=== PATIENT | female | born 1950 | race Caucasian/White ===

== ENCOUNTER → 2018-01-21 12:46 | Outpatient (CLI) | payer MEDICARE, SELFPAY ==
--- NOTE | 2018-01-21 12:55 | BD_ITS ---
STUDY: DUAL ENERGY X-RAY ABSORPTIOMETRY / DXA REASON FOR EXAM: Female, 67 years old. The patient is postmenopausal. Loss of height. TECHNIQUE: Bone Mineral Density (BMD) measurements of lumbar spine and bilateral hips were obtained. COMPARISON: None. FINDINGS: Lumbar Spine (L1-L4): g/cm2 (1.059) / T-score (-1.2) / Z-score (0.4) Findings are suggestive of osteopenia with a moderate fracture risk. Prior vertebral plasty of the L1 vertebrae. Left Femur Total: g/cm2 (0.902) / T-score (-0.8) / Z-score (0.4) Left Femoral Neck: g/cm2 (0.880) / T-score (-1.1) / Z-score (0.4) Right Femur Total: g/cm2 (0.898) / T-score (-0.9) / Z-score (0.4) Right Femoral Neck: g/cm2 (0.810) / T-score (-1.6) / Z-score (-0.1) BD/Dexa Bone Density Study IMPRESSION: The patient is considered osteopenic as outlined below according to World Jesus Organization (WHO) criteria with a moderate fracture risk. Reference Information: The T-score is the number of standard deviations above or below the standard which is normal for young adults at their peak bone mineral density. The World Health Organization (WHO) interprets the T-scores as follows: Above -1 Normal bone density Between -1 and -2.5 Osteopenia Equal to / or below -2.5 Osteoporosis As a practical clinical guideline, osteopenia may be graded as follows: Mild -1 through -1.5 Moderate -1.6 through -2.0 Severe -2.1 through -2.4 The Z-score is the number of standard deviations above or below age-matched controls. A Z-score of less than -1.5 would be considered abnormal. References: 1. NIH Osteoporosis and Related Bone Diseases http://www.osteo.org 2. International Society for Clinical Densitometry http://www.iscd.org 3. National Osteoporosis Foundation http://www.nof.org Electronically Signed: Elias Finn MD at 15:36 EDT Tel [phone], Service support ,
== END ==
PROVIDERS: Family Provider Nurse Practitioner; PCP Nurse Practitioner; Visit Provider Nurse Practitioner
DX: Z78.0 Asymptomatic menopausal state (principal)
CPT/HCPCS: 77080

== ENCOUNTER → 2018-02-14 12:47 | Outpatient (CLI) | payer MEDICARE, SELFPAY ==
--- NOTE | 2018-02-14 12:50 | BI_ITS ---
MAMMOGRAPHY - BILATERAL SCREENING REASON FOR EXAM: Female, 67 years old. Routine annual screening examination. PERTINENT HISTORY: Non-contributory. History of prior bilateral breast reduction surgery. Remote bilateral excisional breast biopsies. TECHNIQUE: Digital bilateral breast margaux (3D mammographic acquisition) in the CC and MLO projections. 2-D mediolateral oblique (MLO) and craniocaudad (CC) views of both breasts were obtained. CAD: Full Field Digital Mammography with Computer Added Detection was performed. COMPARISON: Comparison is made with prior study dated May 18, 2016. FINDINGS: Breast Composition: There are scattered areas of fibroglandular density. There are no dominant masses or suspicious calcifications. No other significant abnormalities are identified. There has been no significant change since the prior study. BI/SCREENING MAMM (CAD), BILAT IMPRESSION: Stable bilateral screening mammogram. Yearly follow-up mammogram recommended. (A) ASSESSMENT CATEGORY: BIRADS Category 1: Negative. A letter regarding these results will be sent to the patient by the facility within 30 days. Approximately 10% of breast cancers are not detected by mammography. A normal mammogram should not delay biopsy of a clinically suspicious abnormality. [id number] Electronically Signed: Elias Finn MD at 8:30 EDT Tel [phone], Service support ,
== END ==
PROVIDERS: Family Provider Nurse Practitioner; PCP Nurse Practitioner; Visit Provider Nurse Practitioner
DX: Z12.31 Encounter for screening mammogram for malignant neoplasm of breast (principal)
CPT/HCPCS: 77063; 77067

== ENCOUNTER → 2018-02-24 08:35 | Outpatient (CLI) | payer MEDICARE, SELFPAY ==
[2018-02-24 09:36] LABS: AST(SGOT) 17 U/L (15-37); Alanine Aminotransfer ALT/SGPT 22 U/L (13-56); Albumin, Serum 3.8 g/dL (3.2-5.0); Alkaline Phosphatase 103 U/L (45-117); Anion Gap 11 (5-15); BUN 20 mg/dL (7-18); BUN/Creat Ratio 11.7 RATIO (10-20); Bilirubin, Direct 0.09 mg/dL (0.00-0.30); Calcium,Total 9.5 mg/dL (8.5-10.1); Chloride 97 mmol/L (98-107); Creatinine, Serum 1.71 mg/dL (0.55-1.02); EST Glomerular Filtration Rate 32 mL/min (>60); Est Glom Filt Rate - Afr Amer 38 mL/min (>60); Glucose 164 mg/dL (74-106); Potassium 4.1 mmol/L (3.5-5.1); Protein, Total 7.8 g/dL (6.4-8.2); Sodium Level 135 mmol/L (136-145)
== END ==
PROVIDERS: Internal Medicine Cardiovascular Disease; Family Provider Nurse Practitioner; PCP Nurse Practitioner; Visit Provider Internal Medicine Gastroenterology
DX: Z01.812 Encounter for preprocedural laboratory examination (principal); E78.5 Hyperlipidemia, unspecified
CPT/HCPCS: 36415; 80048; 80076

== ENCOUNTER → 2018-07-31 11:36 | Outpatient (CLI) | payer MEDICARE, SELFPAY ==
[2018-02-17 14:50] VITALS: BMI 33.5
--- NOTE | 2018-07-31 11:44 | RAD_ITS ---
HISTORY: HX OF SARCOIDOSIS EXAM: XR Chest 2 Views: COMPARISON: None FINDINGS: Stable findings. Normal heart size. Right middle lobe medial segment chronic scarring with secondary partial obscuration of the right heart border. No acute infiltrate. Right lower lobe calcified granuloma. No vascular congestion or pleural effusion. Atherosclerotic thoracic aorta. Previous T12 level kyphoplasty. RAD/Chest PA and Lateral IMPRESSION: 1. No acute disease or significant change. 2. Old granulomatous disease with right middle lobe chronic scarring. at [id number] Reported and signed by: Blane Shelley MD Electronically Signed: Blane Shelley, at 8:03 EST Tel , Service support ,
--- OUTSIDE RECORDS SUMMARY | 2018-09-25 14:22 | XMS RPT_ITS | Continuity of Care Document ---
:1950 Author Organization [facility] Address [address] [facility] [address] [place] [address] Phone Care Team Providers Name Role Phone Nav ARLENElsa Unavailable Malcolm STANLEY, Casey Florian Unavailable Linden DO , Dr. Aaron Diaz Unavailable John BatistaAnnalisa Unavailable Dr. Abimael Ag Unavailable Kirby STANLEY, Jared Galeano Unavailable Pascale [place] Unavailable Slarb BLANKER OPERATOR, Adelita Unavailable Unavailable Long BLANKER OPERATOR, Dora L Unavailable Unavailable Karly Chandra Unavailable Unavailable Trina Sorenson Unavailable Unavailable Unavailable Unavailable Problems Name Dates Details Abdominal pain in female (R10.9, 789.00) Comments: mod amt fecal stool , on US still with Rt lower quad pain Status: Active Anxiety (F41.9, 300.00) Comments: chronic anxiety weaned off of ativanhas been on this for 1-2 years sees [facility] Status: Active BMI 31.0-31.9,adult (Z68.31, V85.31) Status: Active BMI 31.0-31.9,adult (Z68.31, V85.31) Status: Active BMI 32.0-32.9,adult (Z68.32, V85.32) Status: Active BMI 33.0-33.9,adult (Z68.33, V85.33) Status: Active BMI 33.0-33.9,adult (Z68.33, V85.33) Status: Active BMI 33.0-33.9,adult (Z68.33, V85.33) Status: Active CAD (coronary artery disease) (I25.10, 414.00) Status: Active Chronic back pain (M54.9, 724.5) Comments: sees Dr. Jaswant Whittington [facility], per pt cant get oxycontin because of insurance [employer] Status: Active Chronic, continuous use of opioids (F11.90, 305.51) Comments: Seeing [facility], for pain med, oxycontin pt will ask for Butrans patch Status: Active CKD (chronic kidney disease), stage III (N18.3, 585.3) Comments: follows with Dr. Munguia in [place], seen for sarcoidosis currently, stableGFR 42 Status: Active Congestive heart failure (I50.9, 428.0) Comments: on amiodarone per cardio Status: Active Constipation (K59.00, 564.00) Status: Active COPD (chronic obstructive pulmonary disease) (J44.9, 496) Comments: moderate restriction given inhalers Status: Active Current nonsmoker (Z78.9, V49.89) Status: Active Deliveries (Parity) Comments: 1. 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 5 [id number] 8 buahs295-266 10 pyymf660-957 12 units>401 15 unitsad ding metformin not able to afford januvia, will take one bidwt gain and prednisone for a year Status: Active Diabetes mellitus type 2, uncontrolled (E11.65, 250.02) Status: Active Elevated alkaline phosphatase level (R74.8, 790.5) Status: Active Encounter for annual general medical examination with abnormal findings in adult (Z00.01, V70.0) Status: Active Encounter for screening for malignant neoplasm of colon (Renamed from Special screening for malignant neoplasms, colon) (Z12.11, V76.51) Status: Active Encounter for screening mammogram for breast cancer (Renamed from Encounter for screening mammogram for malignant neoplasm of breast) (Z12.31, V76.12) Status: Active Fatty liver (K76.0, 571.8) Status: Active Fibromyalgia (M79.7, 729.1) Status: Active GERD (gastroesophageal reflux disease) (K21.9, 530.81) Comments: has been on omeprazole for years at 41, will decrease dose and lifestyle changes Status: Active Hip pain (M25.559, 719.45) Status: Active History of MRSA infection (Z86.14, V12.04) Comments: with Sepsis July 2015 Cultured positive on 10-03-2015 for preop, treated with antibiotic and chlorhexidine and bacitracin.on 10-21-2015 CUlture NEGATIVE is continuing with weekly chlorhexidine until surgery date is known Status: Active Hypercholesteremia (E78.00, 272.0) Status: Active Hypertensive heart disease without heart failure (I11.9, 402.90) Comments: controlled on amlodipine, 20mg of furosemide and klon-conlow dose ASA Status: Active Hypothyroid (E03.9, 244.9) Status: Active Hypothyroid (E03.9, 244.9) Status: Active Hypoxia (R09.02, 799.02) Status: Active Insomnia (G47.00, 780.52) Comments: try melatonin 2 mg qhs, takes unisom, try tylenol pm or take pain med at night Status: Active L1 vertebral fracture (S32.019A, 805.4) Comments: s/p vertebroplasty done by Dr. 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) Status: Active Nausea (R11.0, 787.02) Status: Active Need for prophylactic vaccination and inoculation against influenza (Renamed from Need for immunization against influenza) (Z23, V04.81) Status: Active Need for prophylactic vaccination and inoculation against influenza (Renamed from Need for immunization against influenza) (Z23, V04.81) Status: Active Need for prophylactic vaccination and inoculation against influenza (Renamed from Need for immunization against influenza) (Z23, V04.81) Status: Active Nonsmoker (Z78.9, V49.89) Status: Active Pneumococcal vaccination given (Z23, V06.6) Comments: 0.5 ml pneumococcal vaccine given in L arm subcutaneously paitent tolerated wellLOT#[id number]#2020 NOV 06 Status: Active Postmenopausal (Renamed from Postmenopausal status) (Z78.0, V49.81) Status: Active Pregnancies () Comments: 1. 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 Whittington Status: Active Sweating abnormality (L74.9, 705.89) Comments: check thyroid labs Status: Active Sweating increase (R61, 780.8) Comments: ? citalopram, but has been on it for awile sweating after.. Thyroid is good Status: Active Uncontrolled diabetes mellitus (E11.65, 250.02) Comments: A1c by lab in March 08.3 takes 2 metformin bid, will see in Jun Status: Active Unspecified Diagnosis Status: Active Unspecified Diagnosis Status: Active Unspecified Diagnosis Status: Active Unspecified Diagnosis Status: Active Unspecified Diagnosis Status: Active Unspecified Diagnosis Status: Active Unspecified Diagnosis Status: Active Vaginal irlanda (B37.3, 112.1) Comments: will use monistat for 7 days no diflucan interferes with amio- take probiotics Status: Active Wrist pain (M25.539, 719.43) Status: Active Medications Name Dates Details ACCU-CHEK CANDY (In Vitro Strip) 1 (one) Strip tid for 30 days Quantity: 100 {Strip} Refills: 3 Ordered:09-Jan-2016 Fast DO, Madeline A Start : 09-Jan-2016 Active Allopurinol 100 MG Oral Tablet 1 (one) Tablet Tablet daily for 30 days Quantity: 30 {Tablet} Refills: 3 Ordered:11-May-2016 Adelita Doshi LPN Start : 08-May-2016 Active AmLODIPine Besylate 5 MG Oral Tablet 1 (one) Tablet bid for 30 days Quantity: 60 {Tablet} Refills: 3 Ordered:06-Jun-2018 Nav MCKINLEY, Elsa Reyes CNP, Elsa Luke Start : 06-Jun-2018 Active ASPIRIN LOW DOSE, 81MG (Oral Tablet Delayed Release) 1 (one) Tablet DR Tablet DR daily for 30 days Quantity: 30 {Tablet} Refills: 0 Ordered:25-Jul-2015 Madeline MOY Start : 18-Jul-2015 Active Atorvastatin Calcium 20 MG Oral Tablet 1 (one) Tablet Tablet daily for 0 days Quantity: 90 {Tablet} Refills: 3 Ordered:04-Sep-2017 Nav MCKINLEY, Elsa Reyes CNP, Elsa Luke Start : 04-Sep-2017 Active Calcitriol 0.25 MCG Oral Capsule 1 (one) Capsule daily for 0 days Quantity: 30 {Capsule} Refills: 6 Ordered:12-May-2018 Nav MCKINLEY, Elsa Reyes CNP, Elsa Luke Start : 12-May-2018 Active Citalopram Hydrobromide 40 MG Oral Tablet 1/2 tab tablet tablet daily for 30 days Quantity: 30 {Tablet} Refills: 3 Ordered:02-May-2018 Nav MCKINLYE, Elsa Reyes CNP, Elsa Luke Start : 02-May-2018 Active Cyclobenzaprine HCl 10 MG Oral Tablet 1 (one) Tablet as needed for 0 days Quantity: 30 {Tablet} Refills: 0 Ordered:11-Jun-2017 Nav MCKINLEY, Elsa Reyes CNP, Elsa Luke Start : 11-Jun-2017 Active Comments:Medication taken as needed. Pain management Furosemide 40 MG Oral Tablet 1/2 tab tablet daily for 30 days Quantity: 15 {Tablet} Refills: 0 Ordered:24-Jun-2018 Nav MCKINLEY, Elsa Reyes CNP, Elsa Luke Start : 24-Jun-2018 Active IRON, 325 (65 Fe)MG (Oral Tablet) 1 (one) Tablet Tablet daily for 30 days Quantity: 30 {Tablet} Refills: 0 Ordered:25-Jul-2015 Madeline Florez DO Start : 18-Jul-2015 Active Klor-Con 10 10 MEQ Oral Tablet Extended Release 1 (one) Tablet ER bid for 60 days Quantity: 60 {Tablet} Refills: 3 Ordered:14-Apr-2018 Remington Oviedo Start : 14-Apr-2018 Active LORazepam 0.5 MG Oral Tablet 1 (one) Tablet bid, prn only for 0 days Quantity: 60 {Tablet} Refills: 0 Ordered:07-Jul-2018 Tatianaabelardomickey MCKINLEY Elsa Leblancmickey MCKINLEY Elsa Luke Start : 07-Jul-2018 Active Comments:Oarrmackenzie rundx F41.9#60thirty days Melatonin 1 MG Oral Tablet 3 (three) Tablet qhs for 0 days Quantity: 60 {Tablet} Refills: 0 Ordered:12-Mar-2016 Nav MCKINLEY Elsa Leblancmickey MCKINLEY Elsa Luke Start : 12-Mar-2016 Active MetFORMIN HCl ER 500 MG Oral Tablet Extended Release 24 Hour 2 (two) Tablet bid for 30 days Quantity: 120 {Tablet} Refills: 6 Ordered:27-May-2018 Tatianaabelardomickey MCKINLEY Elsa Leblancmickey MCKINLEY Elsa Luke Start : 27-May-2018 Active Omeprazole 20 MG Oral Tablet Delayed Release 1 (one) Tablet DR Tablet DR daily for 90 days Quantity: 90 {QS} Refills: 3 Ordered:08-Jan-2018 Tatianaabelardomickey MCKINLEY Elsa Leblancmickey MCKINLEY Elsa Luke Start : 08-Jan-2018 Active Oxycodone-Acetaminophen 7.5-325 MG Oral Tablet 1 (one) Tablet Tablet bid as needed for 0 days Quantity: 60 {Tablet} Refills: 0 Ordered:03-Jul-2016 Tatianaabelardomickey MCKINLEY Elsa Leblancmickey MCKINLEY Elsa Luke Start : 03-Jul-2016 Active Comments:Medication taken as needed. Promethazine HCl 25 MG Oral Tablet 1 (one) Tablet q 8hrs as needed for 30 days Quantity: 30 {Tablet} Refills: 1 Ordered:27-May-2018 Tatianaabelardomickey MCKINLEY Elsa Leblancmickey MCKINLEY Elsa Luke Start : 27-May-2018 Active Comments:Medication taken as needed. Synthroid 50 MCG Oral Tablet 1 (one) Tablet daily except Sundays and Tuesdays for 0 days Quantity: 30 {Tablet} Refills: 3 Ordered:27-May-2018 Tatianaabelardomickey MCKINLEY Elsa Leblancmickey MCKINLEY Elsa Luke Start : 27-May-2018 Active Comments:generic only UNISOM, 25MG (Oral Tablet) 2 (two) Tablet Tablet q hs for 30 days Quantity: 60 {Tablet} Refills: 0 Ordered:25-Jul-2015 Madeline MOY Start : 18-Jul-2015 Active VITAMIN D3, 85240XUUD (Oral Capsule) 1 (one) Capsule Capsule once a month for 30 days Quantity: 1 {Capsule} Refills: 0 Ordered:25-Jul-2015 Madeline MOY Start : 18-Jul-2015 Active AMIODARONE HCL, 200MG (Oral Tablet) 1 (one) Tablet Tablet daily for 30 days Quantity: 30 {Tablet} Refills: 0 Ordered:20-Jan-2016 Tatianaabelardomickey MCKINLEY, Elsa Leblancmickey MCKINLEY Elsa Luke Start : 20-Jan-2016 End : 19-Feb-2016 Inactive Comments:per [facility] Augmentin 875-125 MG Oral Tablet 1 (one) Tablet bid for 14 days Quantity: 28 {Tablet} Refills: 0 Ordered:16-Oct-2016 Tatianaabelardomickey MCKINLEY, Elsa Leblancmickey MCKINLEY Elsa Luke Start : 16-Oct-2016 End : 30-Oct-2016 Inactive Bactrim DS 800-160 MG Oral Tablet 1 (one) Tablet bid for 10 days Quantity: 20 {QS} Refills: 0 Ordered:12-Mar-2016 Nav ARLEN, Elsa Reyes ENVIRONMENTAL SERVICE AIDE, Elsa Luke Start : 12-Mar-2016 End : 22-Mar-2016 Inactive FENOFIBRATE, 160MG (Oral Tablet) 1 (one) Tablet Tablet daily for 30 days Quantity: 30 {Tablet} Refills: 0 Ordered:19-Aug-2015 Madeline MOY Start : 18-Jul-2015 End : 17-Aug-2015 Inactive ISOSORBIDE MONONITRATE, 10MG (Oral Tablet) 1 (one) Tablet Tablet tid for 30 days Quantity: 90 {Tablet} Refills: 0 Ordered:25-Jul-2015 Altagracia Santiago Start : 18-Jul-2015 End : 17-Aug-2015 Inactive LIPITOR, 20MG (Oral Tablet) 1 (one) Tablet Tablet qd for 30 days Quantity: 30 {Tablet} Refills: 0 Ordered:24-Oct-2015 Madeline MOY Start : 22-Sep-2015 End : 22-Oct-2015 Inactive MetFORMIN HCl ER (OSM) 500 MG Oral Tablet Extended Release 24 Hour 1 (one) Tablet ER 24HR Tablet ER 24HR bid for 0 days Quantity: 60 {Tablet} Refills: 3 Ordered:22-Mar-2017 Dora Mckeon LPN Start : 20-Mar-2017 End : 22-Mar-2017 Inactive OXYCONTIN, 30MG (Oral Tablet ER 12 Hour Abuse-Deterrent) 1 (one) Tab 12HR Deter Tab 12HR Deter bid for 30 days Quantity: 60 {Tablet} Refills: 0 Ordered:19-Aug-2015 Madeline A Start : 18-Jul-2015 End : 17-Aug-2015 Inactive PEN NEEDLES /16, 31G X 5 MM (Miscellaneous) 1 (one) Misc q am for 30 days Quantity: 30 {Unspecified} Refills: 0 Ordered:28-Nov-2015 Adelita Doshi LPN Start : 28-Nov-2015 End : 28-Dec-2015 Inactive PIOGLITAZONE HCL, 15MG (Oral Tablet) 1 (one) Tablet Tablet daily for 30 days Quantity: 30 {Tablet} Refills: 0 Ordered:19-Aug-2015 Akhila Mickey Start : 18-Jul-2015 End : 17-Aug-2015 Inactive PREDNISONE, 20MG (Oral Tablet) 1/2 Tablet Tablet QOD for 30 days Quantity: 15 {Tablet} Refills: 0 Ordered:21-Oct-2015 Elsa Chopra CNP, CNP Onelia Start : 21-Oct-2015 End : 20-Nov-2015 Inactive Tradjenta 5 MG Oral Tablet 1 (one) Tablet daily for 0 days Quantity: 30 {Tablet} Refills: 3 Ordered:20-May-2018 Elsa Chopra CNP, CNP Onelia Start : 23-Apr-2018 End : 20-May-2018 Inactive Unisom Sleepgels 50 MG Oral Capsule 1 (one) Capsule Capsule qhs for 0 days Quantity: 30 {Capsule} Refills: 0 Ordered:10-Aug-2016 Dora Mckeon LPN Start : 07-Feb-2016 End : 10-Aug-2016 Inactive Xtampza ER 13.5 MG Oral Capsule ER 12 Hour Abuse-Deterrent 1 (one) Capsule q 12 hours for 30 days Quantity: 60 {Capsule} Refills: 0 Ordered:18-Jan-2018 Elsa Chopra CNP, CNP Elsa Luke Start : 18-Dec-2017 End : 17-Jan-2018 Inactive Comments:Dr Whittington , pain specialist BACTROBAN NASAL, 2% (Nasal Ointment) bid x 7days (2 %) End : 07-Nov-2015 Discontinued CHLORHEXIDINE GLUCONATE, 4% (External Liquid) 1 (one) Liquid Liquid daily x 5 dys then weekly x 4 weeks for 0 days Quantity: 1 {Bottle} Refills: 0 Ordered:07-Nov-2015 Adelita Doshi LPN Start : 03-Oct-2015 End : 07-Nov-2015 Discontinued Comments:leave on 2 minutes then ghoughtly wash off Januvia 100 MG Oral Tablet 1 (one) Tablet Tablet qd for 0 days Quantity: 30 {Tablet} Refills: 3 Ordered:12-Mar-2016 Adelita Doshi LPN Start : 02-Jan-2016 End : 12-Mar-2016 Discontinued Levemir 100 UNIT/ML Subcutaneous Solution 20 Solution units each morning for 30 days Quantity: 1 {Vial} Refills: 6 Ordered:11-May-2016 Adelita Doshi LPN Start : 03-Oct-2015 End : 11-May-2016 Discontinued Levemir FlexTouch 100 UNIT/ML Subcutaneous Solution Pen-injector 1 (one) Soln Pen-inj Soln Pen-inj 20 units q am for 30 days Quantity: 1 {Box} Refills: 3 Ordered:03-Jul-2016 Adelita Doshi LPN Start : 07-Feb-2016 End : 03-Jul-2016 Discontinued LEVEMIR, 100UNIT/ML (Subcutaneous Solution) 20 Solution units each morning for 30 days Quantity: 1 {Vial} Refills: 6 Ordered:07-Feb-2016 Elysemickey MCKINLEY, Elsa Reyes ARLEN, Elsa Luke Start : 03-Oct-2015 End : 07-Feb-2016 Discontinued LEVEMIR, 100UNIT/ML (Subcutaneous Solution) 20 Solution units each morning for 30 days Quantity: 1 {Vial} Refills: 6 Ordered:20-Jan-2016 Adelita Doshi LPN Start : 21-Oct-2015 End : 20-Jan-2016 Discontinued MACROBID, 100MG (Oral Capsule) q12hrs (100 MG) End : 05-Aug-2015 Discontinued Comments:[facility] MUPIROCIN, 2% (External Ointment) 1 (one) Ointment Ointment apply small amt to q tip qd x5 day for 0 days Quantity: 1 {Tube} Refills: 0 Ordered:07-Nov-2015 Adelita Doshi LPN Start : 03-Oct-2015 End : 07-Nov-2015 Discontinued Comments:apply to each nares, umbilicus, and rectum Norvasc 5 MG Oral Tablet 1 (one) Tablet Tablet bid for 30 days Quantity: 60 {Tablet} Refills: 11 Ordered:11-May-2016 Adelita Doshi LPN Start : 20-Jan-2016 End : 11-May-2016 Discontinued Comments:dose change on 01/06/16 cmanchak NovoLOG 100 UNIT/ML Subcutaneous Solution 1 (one) Solution uad, per sliding scale for 0 days Quantity: 30 {Vial} Refills: 6 Ordered:03-Jul-2016 Adelita Doshi LPN Start : 07-Feb-2016 End : 03-Jul-2016 Discontinued OMEPRAZOLE, 40MG (Oral Capsule Delayed Release) 1 (one) Capsule DR Capsule DR daily for 30 days Quantity: 30 {Capsule} Refills: 3 Ordered:07-Feb-2016 Adelita Doshi LPN Start : 12-Jan-2016 End : 07-Feb-2016 Discontinued OxyCODONE HCl ER 15 MG Oral Tablet ER 12 Hour Abuse-Deterrent 1 (one) Tab 12HR Deter Tab 12HR Deter bid for 0 days Quantity: 60 {QS} Refills: 0 Ordered:18-Dec-2017 Adelita Doshi LPN Start : 03-Jul-2016 End : 18-Dec-2017 Discontinued PredniSONE 10 MG Oral Tablet 1 (one) Tablet bid x 3 days, then 1 daily x 3 days,then 1/2 daily x 3 for 0 days Quantity: 12 {Tablet} Refills: 0 Ordered:19-Nov-2016 Adelita Doshi LPN Start : 16-Oct-2016 End : 19-Nov-2016 Discontinued Comments:with food PredniSONE 5 MG Oral Tablet 1 (one) Tablet Tablet qod for 0 days Quantity: 60 {Tablet} Refills: 11 Ordered:12-Mar-2016 Adelita Doshi LPN Start : 20-Jan-2016 End : 12-Mar-2016 Discontinued Comments:Per Urbina Tessalon Perles 100 MG Oral Capsule 1 (one) Capsule tid prn for 0 days Quantity: 30 {Capsule} Refills: 0 Ordered:19-Nov-2016 Adelita Doshi LPN Start : 16-Oct-2016 End : 19-Nov-2016 Discontinued Vancomycin HCl End : 05-Aug-2015 Discontinued Comments:1,250mg IV q24hrs x 64ugwv5,500mg IV q24hrs #14 Allergies and Adverse Reactions Name Dates Details Compazine *ANTIPSYCHOTICS/ANTIMANIC AGENTS* (Allergy) Status: Active Past Medical History Name Dates Details Abdominal pain (R10.9, 789.00) Comments: Started with RLQ pain about a week ago Status: Inactive as of 27-May-2018 Abnormal chest xray (R93.89, 793.2) Status: Inactive as of 26-Oct-2015 Abnormal TSH (R79.89, 790.6) Status: Inactive as of 27-May-2018 arthritis,unspecified (716.90) Status: Inactive as of 11-Jun-2017 BMI 32.0-32.9,adult (Z68.32, V85.32) Status: Inactive as of 11-Jun-2017 BMI 34.0-34.9,adult (Z68.34, V85.34) Status: Inactive as of 29-May-2017 BMI 35.0-35.9,adult (Z68.35, V85.35) Status: Inactive as of 18-Sep-2017 Boil, axilla (L02.439, 680.3) Comments: MRSA presented this way in past, will treat as if since had MRSA sepsis Status: Inactive as of 18-Dec-2017 Bone pain (M89.8X9, 733.90) Comments: ? from steroid wean,weaned from 60 to 5qod or Januvia Status: Inactive as of 27-May-2018 Chronic pain (G89.29, 338.29) Comments: on oxycodone and oxycontin per pain Dr. Whittington [facility] Status: Inactive as of 27-May-2018 CKD (chronic kidney disease) (N18.9, 585.9) Comments: was seeing Dr. Munguia's partner in [place] Dr. Morel, gfr 43%, has proteinuria Status: Inactive as of 27-May-2018 Cough (R05, 786.2) Status: Inactive as of 18-Dec-2017 Diabetes mellitus type II, controlled, with no complications (Renamed from Controlled type 2 diabetes mellitus without complication) (E11.9, 250.00) Comments: off insulin just metformin since off steroid Status: Inactive as of 27-May-2018 Hypoxia (R09.02, 799.02) Comments: concerned because post fall and post op- she sent to er tlaked to Dr Brewer- needs workup - including for pe- Status: Inactive as of 27-May-2018 Kidney Disease (585.9) Status: Inactive as of 11-Jun-2017 Low serum potassium level (E87.6, 276.8) Status: Inactive as of 27-May-2018 Migraine (G43.909, 346.90) Status: Inactive as of 27-May-2018 Muscle spasm (M62.838, 728.85) Comments: on potassium, gets muscle cramp Status: Inactive as of 27-May-2018 Rectal Bleeding (569.3) Comments: sounds possible fissure- montior and set up for scope when backissues stable- she to kiesha if abd pain or worse Status: Inactive as of 27-May-2018 Rt groin pain (R10.31, 789.09) Comments: vs hip using oxycodone and contin Status: Inactive as of 27-May-2018 Sepsis due to Staphylococcus (A41.2, 038.10) Comments: getting iv vanc - Being monitored by Dr Arenas and has followup next weekmrsa Status: Inactive as of 18-Dec-2017 Shoulder pain, right (M25.511, 719.41) Status: Inactive as of 27-May-2018 Skin texture changes (R23.4, 782.8) Status: Inactive as of 27-May-2018 Smoker (F17.200, 305.1) Status: Inactive as of 10-Dec-2016 Tachycardia (Renamed from Fast heart beat) (R00.0, 785.0) Comments: concerned with postop complication Status: Inactive as of 27-May-2018 Tenosynovitis of wrist (M65.9, 727.05) Comments: left wrist Status: Inactive as of 27-May-2018 Urinary casts (R82.99, 791.7) Comments: try to wean omeprazole on 1 daily go to every other day Status: Inactive as of 27-May-2018 UTI symptoms (R39.9, 788.99) Status: Inactive as of 11-Jun-2017 Wheeze (R06.2, 786.07) Status: Inactive as of 27-May-2018 Procedures Procedure Dates Details Back surgery [facility] Completed Comments: October 2015 Breast Reduction - Both Completed Gallbladder Surgery - Open Completed Hysterectomy; Total Completed Knee Replacement, Total Completed Comments: Right. vertebroplasty 06/16- l1 Completed Date Value Details 17-Feb-2018 Cardiology Visit Report Result: Comments: See Note; NOTES: [facility] [address] [place] [address] OFFICE VISIT Date of Service: 02/17/18 MR#: [id number] Acct: [id number] Name: SHREYAS KATHLEEN Rep #: [id number] : 1950 Provider: Casey Fowler MD Age/Sex: 67/F [place] [facility] [place] [facility] Status: Signed HPI HPI Details: SHREYAS KATHLEEN, is a 67 F who presents to the office today for for outpatien t cardiovascular follow-up of her history of underlying CAD, non-ST segment elevation HI, paroxysmal atrial fibrillation, superimposed upon a history of underlying hyperlipidemia and hypertension. Since her last visit of June 2017 she states overall she has been doing well. She denies any ongoing issues of classic angina pectoris nor has she had any overt issues of CHF or pulmonary edema. There has been no near syncope or syncope. She has not had her lipids checked since roughly June 2017. She states she has not required additional cardiovascular diagnostic studies or therapeutic intervention. Intake Vital Signs02/17/18 Height 5 ft 3 in 02/17/18 Weight: 189 lb 02/17/18 Body Mass Index (BMI) 33.5 02/17/18 Blood Pressure 108/58 Intake Visit Reasons: 6 M FU Allergies prochlorperazine katya late [From Compazine] Allergy (Verified 02/17/18 14:51) Other Medications Amlodipine [Norvasc] 5 mg PO DAILY 07/18/15 [History Confirmed 02/17/18] Aspirin [Aspirin, Baby] 81 mg PO DAILY@0800 07/18/15 [History Confirmed 02/17/18] Citalopram [Celexa] 20 mg PO DAILY 07/18/15 [History Confirmed 02/17/18] Furosemide [Lasix] 20 mg PO DAILY 07/18/15 [History Confirmed 02/17/18] proMETHazine tablet [Phener ferny tablet] 25 mg PO PRN PRN 07/18/15 [History Confirmed 02/17/18] atorvastatin 20 mg tablet 20 mg PO QDAY 02/16/18 [History Confirmed 02/17/18] doxylamine succinate 25 mg tablet 50 mg PO QHS PRN tab [History Confirmed 02/17/18] ferrous sulfate 325 mg (65 mg iron) tablet 325 mg PO QDAY tab 02/16/18 [History Confirmed 02/17/18] levothyroxine 50 mcg tablet 50 mcg PO QDAY 02/16/18 [History Confi rmed 02/17/18] metformin 500 mg tablet 500 mg PO BID 02/16/18 [History Confirmed 02/17/18] omeprazole 20 mg tablet,delayed release 20 mg PO QDAY 02/16/18 [History Confirmed 02/17/18] potassium chloride ER 10 mEq capsule,extended release 10 meq PO BID 02/16/18 [History Confirmed 02/17/18] calcitriol 0.25 mcg capsule 0.25 mcg PO QDAY 02/17/18 [History Confirmed 02/17/18] cholecalciferol (vitamin D3) 2,0 00 unit capsule 2,000 unit PO QDAY 02/17/18 [History Confirmed 02/17/18] cyclobenzaprine 10 mg tablet 10 mg PO BID PRN tab 02/17/18 [History Confirmed 02/17/18] lorazepam 1 mg tablet 1 mg PO QHS PRN [History Confirmed 02/17/18] oxycodone ER 13.5 mg capsule sprinkle ext release 12 hr(tamper resist) 13.5 mg PO Q12H 02/17/18 [History Confirmed 02/17/18] oxycodone-acetaminophen 7.5 mg-325 mg tabl et 1 tab PO Q4H PRN 02/17/18 [History Confirmed 02/17/18] PFSH Medical History Atherosclerotic heart disease of [place] coronary artery without angina pectoris (Chronic) History of myocardial infarction (Acute) Type 2 diabetes mellitus (Chronic) Hyperlipidemia (Chronic) Long-term use of high-risk medication (Chronic) HARI (obstructive sleep apnea) (Chr onic) HTN (hypertension) (Chronic) CKD (chronic kidney disease) stage 3, GFR 30- 59 ml/min (Chronic) PAF (paroxysmal atrial fibrillation) (Chronic) Diastolic dysfunction (Chronic) Obesity (BMI 30.0-34.9) (Chronic) Osteopenia (Acute) Pulmonary sarcoidosis (Acute) TIA (transient ischemic attack) (Acute) COPD (chronic obstructive pulmonary disease) (Chronic) Chronic respiratory failure with hypoxia (Chron ic) Hypothyroidism (Chronic) Pleural effusion (Chronic) Acute bronchitis (Inactive) CRF (chronic renal failure) (Inactive) Narcotic dependency, continuous (Inactive) Sepsis (Inactive) Surgical History History of back surgery (Resolved) History of cholecystectomy (Resolved) History of hysterectomy (Resolved) History of right knee joint replacement (Res olved) Family History Sister Diabetes Hypertension Sister Diabetes Hypertension Sister Diabetes Hypertension Social History Smoking Status: Never smok er alcohol intake: never ROS Const Const: Negative for fatigue, weakness, weight gain, weight loss, frequent falls or excessive sweating Eyes Eyes: Negative for change in vision, blurry vision or transient loss of vision ENT ENT: Negative for dizziness or balance problems Cardio Chest Pain: No Palpitations: No Edema: None Muscle aches with walking: None Resp Respiratory: Positive for SOB with ac tivity (occasional); negative for SOB at rest GI GI: Negative vomiting or vomiting blood/hematemesis : Negative for hematuria Musc Musc: Positive for joint pain (more frequently); negative for wenceslao nce problems, muscle aches/ myalgia or muscle weakness Skin Skin: Negative non- healing lesions or rash Neuro Neuro: Negative for weakness, blurry vision, dizziness, lightheadedness, frequent falls or or thostatic symptoms Jalen Hematologic/Lymphatic: Negative for easy bleeding Endo Endo: Negative for fatigue or excessive sweating Psych Psych: Negative for anxiety or depression Allergy Allergy/Immunology : Negative for hives, Negative for rash Cardiology Exam Const Appearance: cooperative, healthy appearing, comfortable, no acute distress, well developed and well groomed Nutritional Appearance: averag e body habitus Orientation: alert, oriented x3 and awake Head Head: normal to inspection, normocephalic and atraumatic Ears: hearing grossly normal bilaterally Nose: external nose normal Face and Sinus: face symmetric Mouth: oral mucosae normal Teeth and gingiva: fair dentition Eyes Eyelids: eyelids normal Conjunctivae: conjunctivae normal EOM: EOM intact bilaterally Neck Neck: normal visual inspectio n and full ROM Carotids: normal carotid upstroke Chest Chest inspection: normal inspection of the chest and symmetric chest movement Auscultation: Bilateral: Clear to Auscultation Cardio Palpation: norm al PMI Rate: regular rate Rhythm: regular rhythm Heart sounds: S1 normal and S2 normal GI GI: normal to inspection, bowel sounds present, soft and no hepatosplenomegaly Neuro General: alert, awake, orie nted x3 and moves all extremities Skin Skin: no rashes or lesions noted Extremities Pulses: Normal: Right Radial Pulse, Left Radial Pulse Lower Extremity Edema: Trace: Bilateral Psych Psychological: nor mal affect Supplemental Info She did have a transthoracic echocardiogram performed on 07/19/2015. At that time her left ventricle was thought to be normal with an LVEF of 65%, normal diastolic G for a ge, moderate left atrial enlargement, mild TR, and an estimated RV systolic pressure of 40 mmHg. She also had a diagnostic cardiac catheterization performed on 06/22/2014. The results are as noted rosanne lewis Final impression: 1, Relatively normal resting left ventricular end-diastolic pressure 2. Left ventricle: A. Not performed secondary to chronic renal insufficiency 3, Left main coronary artery: A. A ngiographically normal 4. Left anterior descending coronary artery: A. Proximal calcification with 10-25% stenosis B. Minimal luminal irregularities 5. Left circumflex coronary artery: A. Minimal Jumina l irregularities B. First OM with proximal 102 5% stenosis 6. Right coronary artery: A. Moderate sized dominant vessel B. Minimal luminal irregularities C. Proximal portion prior to and following the ta keoff of a small RV marginal branch demonstrates 25% diffuse appearing stenosis Assessment AND Plan 1. Atherosclerosis of [place] coronary artery of [place] heart without angina pectoris I25.10 Mild Plan At the present time she appears to be doing reasonably well overall. She will continue risk factor modification and medical management. Orders Orders: 2. Paroxysmal atrial fibrillation I48.0 Kelvin n She does have a history of paroxysmal atrial fibrillation. She has been on aspirin therapy and rate control therapy. She has not been on anticoagulant therapy based on previous concerns of anemia. 3. Hyperlipidemia, unspecified hyperlipidemia type E78.5 Plan Her lipid history is been reviewed. She will be scheduled for upcoming future fasting lipid and hepatic labs. Orders Orders: 4. Essential hyp ertension I10 Plan Her blood pressure appears to be reasonably well controlled. She will continue medical management and follow-up. 5. Long-term use of high- risk medication Z79.899 Plan As she is on me dical therapy with respect her lipid labs she will have a future fasting lipid and hepatic profile. Plan Detail Additional Comments Otherwise she will be scheduled for an outpatient visit in [facility] 9 months unless needed sooner. Thank you for allowing me to participate in the care of your patient. Please don't hesitate to call if any issues arise. This note was generated using a voice [email or web address] system and there may be incorrect words, spelling or punctuation that were not noted when reviewing the office note prior to saving. Follow Up 9 Months Coding Level of Care Code Off glen rodríguez,kelly l 4 Diagnoses Atherosclerosis of [place] coronary artery of [place] heart without angina pectoris I25.10 [place] vs. transplanted heart: [place] heart Paroxysmal atrial fibrillation I48.0 Hyperlipidemia, u nspecified hyperlipidemia type E78.5 Hyperlipidemia type: unspecified Essential hypertension I10 Hypertension type: essential hypertension Long-term use of high-risk medication Z79.899 Coding Level of Care Code Off glen rodríguez,level 4 Diagnoses Atherosclerosis of [place] coronary artery of [place] heart without angina pectoris I25.10 [place] vs. transplanted heart: [place] heart Paroxysmal atrial fibrillat ion I48.0 Hyperlipidemia, unspecified hyperlipidemia type E78.5 Hyperlipidemia type: unspecified Essential hypertension I10 Hypertension type: essential hypertension Long-term use of high-risk medicatio n Z79.899 02/17/18 1530 <Electronically signed by Casey Fowler MD> Date Casey Fowler MD Cosigner Signature: Date _ (if applicable) CC: Elsa Chopra NP 14-Feb-2018 SCREENING MAMM (CAD), BILAT Result: Comments: See Note; NOTES: [facility] Imaging Services [address] [place] [address] SCREENING MAMM (CAD), BILAT MR#: [id number] Acct: [id number] Name: SHREYAS KATHLEEN Rep #: [id number] : 1950 F 67 From: Elias Finn MD PCP: Elsa Chopra NP Status: REG CLI Study: SCREENING MAMM (CAD), BILAT Date of Exam: 02/14/18 Exam# [id number] Ordering Dr: Elsa Chopra MAMMO GRAPHY - BILATERAL SCREENING REASON FOR EXAM: Female, 67 years old. Routine annual screening examination. PERTINENT HISTORY: Non-contributory. History of prior bilateral breast reduction surgery. Stanislav te bilateral excisional breast biopsies. TECHNIQUE: Digital bilateral breast margaux (3D mammographic acquisition) in the CC and MLO projections. 2-D mediolateral oblique (MLO) and craniocaudad (CC) views of both breasts were obtained. CAD: Full Field Digital Mammography with Computer Added Detection was performed. COMPARISON: Comparison is made with prior study dated May 18, 2016. FINDINGS: Breast Composition: There are scattered areas of fibroglandular density. There are no dominant masses or suspicious calcifications. No other significant abnormalities are identified. There has been no significant change since the prior study. BI/SCREENING MAMM (CAD), BILAT IMPRESSION: Stable bilateral screening mammogram. Yearly follow-up mammogram recommended. (A) ASSESSMENT CATEGORY: BIRADS Category 1: Negative. [facility] these [facility] the facility within 30 days. Approximately 10% of breast cancers are not detected by mammography. A normal mammogram should not delay biopsy of a clinically suspicious abnormality. [id number] Elect ronically Signed: Elias Finn MD at 8:30 EDT Tel [phone], Service support , CC: Elsa Chopra NP Associate Professor Of English: Signed 21-Jan-2018 Dexa Bone Density Study Result: Comments: See Note; NOTES: [facility] Imaging Services [address] [place] [address] Dexa Bone Density Study MR#: [id number] Acct: [id number] Name: SHREYAS KATHLEEN Rep #: [id number] : 1950 F 67 From: Elias Finn MD PCP: Elsa Chopra NP Status: REG CLI Study: Dexa Bone Density Study Date of Exam: 01/21/18 Exam# [id number] Ordering Dr: Elsa Chopra STUDY: DUAL E NERGY X-RAY ABSORPTIOMETRY / DXA REASON FOR EXAM: Female, 67 years old. The patient is postmenopausal. Loss of height. TECHNIQUE: Bone Mineral Density (BMD) measurements of lumbar spine and bilateral hips were obtained. COMPARISON: None. FINDINGS: Lumbar Spine (L1-L4): g/cm2 (1.059) / T-score (-1.2) / Z-score (0.4) Findings are suggestive of osteopenia with a m oderate fracture risk. Prior vertebral plasty of the L1 vertebrae. Left Femur Total: g/cm2 (0.902) / T-score (-0.8) / Z-score (0.4) Left Femoral Neck: g/cm2 (0.880) / T-score (-1.1) / Z-score (0.4) Rig ht Femur Total: g/cm2 (0.898) / T-score (-0.9) / Z-score (0.4) Right Femoral Neck: g/cm2 (0.810) / T-score (-1.6) / Z-score (-0.1) BD/Dexa Bone Density Study IMPRESSION: The patient is considered osteopenic as outlined below according to World Jesus Organization (WHO) criteria with a moderate fracture risk. Reference Information: The T-score is the number of standard deviations above or below the standard which is normal for young adults at their peak bone mineral density. The World Health Organization (W HO) interprets the T-scores as follows: Above -1 Normal bone density Between -1 and -2.5 Osteopenia Equal to / or below -2.5 Osteoporosis As a practical clinical guideline, osteopenia may be graded as follows: Mild -1 through -1.5 Moderate -1.6 through -2.0 Severe -2.1 through -2.4 The Z-score is the number of standard deviations above or below age- matched controls. A Z-score of less than -1.5 woul d be considered abnormal. References: 1. NIH Osteoporosis and Related Bone Diseases http://www.osteo.org 2. International Society for Clinical Densitometry http://www.iscd.org 3. National Osteoporosis Foundation http://www.nof.org Electronically Signed: Elias Finn MD at 15:36 EDT Tel [phone], Service support , CC: Elsa Chopra NP Associate Professor Of English: Signed 10-Dec-2016 Hip 2-3 Views with Pelvis Result: Comments: See Note; NOTES: [facility] Imaging Services [address] [place] [address] Verdana 4d Hip 2-3 Views with Pelvis MR#: [id number] Acct: [id number] Name: SHREYAS KATHLEEN Keira Rep #: [id number] : 1950 F 66 From: Herve Jimenez MD PCP: Elsa Chopra Status: REG CLI Study: Hip 2-3 Views with Pelvis Date of Exam: 12/10/16 Exam# [id number] Ordering Dr: Elsa Chopra STUDY : X-RAY - PELVIS AND RIGHT HIP REASON FOR EXAM: Female, 66 years old. Right hip/groin pain, patients states she has a previous back injury from falling down stairs, possible related to her hip pain TE CHNIQUE: Radiological exam, hip, unilateral, with pelvis when performed; 2 or 3 views. COMPARISON: None. FINDINGS: There is a non-specific bowel gas pattern. Normal visualized soft tissue structures. Normal bilateral iliac wings, sacroiliac joints and visualized sacrum. Normal bilateral superior and inferior pubic rami. Normal pubic symphysis. Normal bilateral is chial tuberosities. Normal visualized femoral head. Normal acetabulum. Normal hip joint. RAD/Hip 2-3 Views with Pelvis IMPRESSION: Normal x-ray examination of the pelvis and hip. Electronically Signed: Herve Jimenez MD, FACR at 11:31 EDT , Service support [phone], CC: Elsa Chopra Associate Professor Of English: Signed 05-Jul-2016 Abdomen Complete Result: Comments: See Note; NOTES: [facility] Imaging Services [address] [place] [address] Verdana 4d Abdomen Complete MR#: [id number] Acct: [id number] Name: SHREYAS KATHLEEN Keira Rep #: [id number] : 1950 F 66 From: Elias Finn MD PCP: Elsa Chopra Status: REG CLI Study: Abdomen Complete Date of Exam: 07/05/16 Exam# [id number] Ordering Dr: Elsa Chopra STUDY: ABDOMINAL ULTRASOUND REASON FOR EXAM: Female, 66 years old. Abdominal pain. TECHNIQUE: Transabdominal ultrasound was performed with real-time and static martínez scale imaging. TECHNICAL QUALITY: Adequate. COMPAR EDITH: None. FINDINGS: Liver: The liver measures 16.4 cm. There is increased echogenicity consistent with fatty infiltration. The bile ducts are within normal limits . There is hepatic color flow. The direction of portal flow is hepatopetal. There is no demonstrated mass lesion. Gallbladder: The patient is status post cholecystectomy. Common Bile Duct (C.B.D.): Th e common bile duct measures 8.6 mm. Pancreas: There is nonvisualization of the pancreas. Spleen: Normal size of the spleen. The spleen measures 10.3 cm x 5.0 cm x 4.2 cm. Right Kidney: Normal size of the right kidney. The right kidney measures 10.4 cm x 4.5 cm x 4.1 cm. Normal renal cortex. The right cortex measures 1.2 cm. There is no demonstrated renal mass or cyst. There is no right hydronephros is. Left Kidney: Normal size of the left kidney. The left kidney measures 9.9 cm x 3.7 cm x 4.4 cm. Normal renal cortex. The left cortex measures 1.3 cm. There is no demonstrated renal mass or cyst. Th ere is no left hydronephrosis. Aorta: Unremarkable. I.V.C.: The IVC is patent. There is no ascites. US/Abdomen Complete IMPRESSION: Fatty inf iltration of the liver. The patient is status post cholecystectomy. Electronically Signed: Elias Finn MD at 9:35 EDT Tel [phone], Service support [phone], CC: Elsa Chopra Associate Professor Of English: Signed 05-Jul-2016 Abdomen Single View Result: Comments: See Note; NOTES: [facility] Imaging Services [address] [place] [address] Verdana 4d Abdomen Single View MR#: [id number] Acct: [id number] Name: SHREYAS KATHLEEN Rep #: [id number] : 1950 F 66 From: Elias Finn MD PCP: Elsa Chopra Status: REG CLI Study: Abdomen Single View Date of Exam: 07/05/16 Exam# [id number] Ordering Dr: Elsa Chopra STUDY: X-RA Y - ABDOMEN/PELVIS REASON FOR EXAM: Female, 66 years old. Abdominal pain. TECHNIQUE: Two AP supine views of the abdomen and pelvis. COMPARISON: None. FINDINGS: Th ere is a 1.1 cm calcified granuloma at the right lung base. There is elevation of the right hemidiaphragm. There is a moderate amount of colonic fecal material. The visualized liver, spleen and kidney s are grossly normal in size and morphology. There are calcified phleboliths in the pelvis. The patient is status post vertebroplasty of the L1 vertebrae. ORDER # : [id number] RAD/Abdomen Single View IMPRESSION: Moderate amount of fecal material is seen in the colon. Electronically Signed: Elias Finn MD at 10:34 EDT Tel [phone], Service sup port [phone], CC: Elsa Chopra Associate Professor Of English: Signed 18-May-2016 Bilat Scrn Digital AND CAD Result: Comments: See Note; NOTES: [facility] Imaging Services [address] [place] [address] Verdana 4d Bilat Scrn Digital AND CAD MR#: [id number] Acct: [id number] Name: JACINTO KATHLEEN Rep #: [id number] : 1950 F 65 From: Elias Finn MD PCP: Elsa Chopra Status: REG CLI Study: Bilat Scrn Digital AND CAD Date of Exam: 05/18/16 Exam# [id number] Ordering Dr: Elsa Chopra MAMMOGRAPHY - BILATERAL SCREENING REASON FOR EXAM: Female, 65 years old. Routine annual screening examination. PERTINENT HISTORY: Non-contributory. History of prior bilateral breast reduction. Bila teral excisional breast biopsies. TECHNIQUE: Digital bilateral breast margaux (3D mammographic acquisition) in the CC and MLO projections. 2-D mediolateral oblique (MLO) and craniocaudad (CC) views of bot h breasts were obtained. CAD: Full Field Digital Mammography with Computer Added Detection was performed. COMPARISON: Comparison is made with prior to examination dated October 22, 2013 and April 03, 2011. FINDINGS: Breast Composition: There are scattered areas of fibroglandular density. There are no dominant masses or suspicious calcifications. No other signif icant abnormalities are identified. There has been no significant change since the prior study. HPBI/Bilat Scrn Digital AND CAD IMPRESSION: Stab le bilateral screening mammogram. Yearly follow-up mammogram recommended. (A) ASSESSMENT CATEGORY: BIRADS Category 1: Negative. A letter regarding these results yane l be sent to the patient by the facility within 30 days. Approximately 10% of breast cancers are not detected by mammography. A normal mammogram should not delay biopsy of a clinically suspicious abnor mality. [id number] Electronically Signed: Elias Finn MD at 12:53 EDT Tel [phone], Service support [phone], CC: Elsa Chopra Associate Professor Of English: Signed 14-Feb-2016 Shoulder min 2 Views Result: Comments: See Note; NOTES: [facility] Imaging Services [address] [place] [address] Oscar 4d Shoulder min 2 Views MR#: [id number] Acct: [id number] Name: SHREYAS KATHLEEN Rep #: [id number] : 1950 F 65 From: Herve Jimenez MD PCP: Madeline Florez DO Status: REG CLI Study: Shoulder min 2 Views Date of Exam: 02/14/16 Exam# [id number] Ordering Dr: Pascale Boston DO STUDY: X-RAY - RIGHT SHOULDER REASON FOR EXAM: Female, 65 years old. No known injury. Pain in right shoulder. Pain for at least 1 1/2 years getting worse. TECHNIQUE: 3 view(s) of the shoulder. COMPARISON: None. FINDINGS: Normal glenohumeral articulation. There is mild arthrosis of the acromioclavicular joint. Normal acromion. Normal humer al head and visualized proximal humerus. The soft tissue structures are unremarkable. Normal visualized pulmonary apex. IMPRESSION: Bilateral of the acromiocl avicular joint, otherwise normal x-ray examination of the shoulder. Electronically Signed: Herve Jimenez MD, FACR at 14:50 EDT , Service support [phone], Fax RAD/Shoulder min 2 Views IMPRESSION: Bilateral of the acromioclavicular joint, otherwise normal x-ray examination of the shoulder. Electronically Signed: Herve Jimenez MD, FACR at 14:50 EDT , Service support [phone], CC: Pascale Boston DO; Madeline Florez DO Associate Professor Of English: Signed 21-Oct-2015 Spirometry ([id number]) Comments: mod restriction Result: 19-Sep-2015 Chest PA and Lateral Result: Comments: See Note; NOTES: [facility] Imaging Services [address] [place] [address] Verdana 4d Chest PA and Lateral MR#: [id number] Acct: [id number] Name: SHREYAS KATHLEEN Rep #: [id number] : 1950 F 65 From: Elias Finn MD PCP: Madeline Florez DO Status: REG CLI Study: Chest PA and Lateral Date of Exam: 09/19/15 Exam# [id number] Ordering Dr: Madeline Florez DO STUDY: X-RAY CHEST REASON FOR EXAM: Female, 65 years old. Recent diagnosis of osteosarcoma. TECHNIQUE: PA and lateral views of the chest. COMPARISON: Comparison is made with prior massimo dy dated August 17, 2015. FINDINGS: Stable calcified granuloma in the right lower lobe. Stable persistent mild increased markings in the right middle lobe montanez ggestive of scarring. There is no demonstrated pleural abnormality. Normal size heart. Normal mediastinum and marycruz. Normal visualized pulmonary arteries. There is atherosclerotic tortuosity of the ao rtic arch and descending thoracic aorta. Normal visualized thoracic spine. Normal visualized ribs, clavicles, and shoulders. There is no demonstrated abnormality of the visualized soft tissue str uctures of the upper abdomen. IMPRESSION: Stable examination. No acute abnormality is seen. Electronically Signed: Elias Finn MD at 13:58 EST Tel [phone], Service support [phone], RAD/Chest PA and Lateral IMPRESSION: Stable examination. No acute abnormality is seen. Electronically Doris d: Elias Finn MD at 13:58 EST Tel [phone], Service support [phone], CC: Madeline Florez DO Associate Professor Of English: Signed 25-Aug-2015 Spine Lumbar (Routine) Result: Comments: See Note; NOTES: [facility] Imaging Services [address] [place] [address] Verdana 4d Spine Lumbar (Routine) MR#: [id number] Acct: [id number] Name: SHREYAS MAJOR Rep #: [id number] : 1950 F 65 From: Herve Jimenez MD PCP: Madeline Florez DO Status: REG CLI Study: Spine Lumbar (Routine) Date of Exam: 08/25/15 Exam# [id number] Ordering Dr: ELIZABETH DE LEON M.D. STUDY: MRI LUMBAR SPINE WITHOUT CONTRAST REASON FOR EXAM: Female, 65 years old. Fall , kyphoplasty , has increased severe back pain down into legs since surgery, trouble walki ng TECHNIQUE: Standardized fat and water weighted pulse sequences were obtained in the sagittal and axial planes. COMPARISON: None FINDINGS: T12-L1: Normal endplates. Normal disc height, hydration and morphology. Normal bilateral facet joints. Normal central canal and bilateral lateral recesses. Normal bilateral intervertebral neural foramina. Normal l umbar lordosis. There is no substantial scoliosis. Normal conus medullaris that terminates at the L1-2 level L1-2: There is a compression fracture of the superior endplate of the vertebral body of L 1, status post kyphoplasty. There is minimal retropulsion of the posterior margin. Normal bilateral facet joints appear normal spinal canal and neural foramina. L2-3: Normal endplates. Normal disc h eight, hydration and morphology. Normal bilateral facet joints. Normal central canal and bilateral lateral recesses. Normal bilateral intervertebral neural foramina. There is a hemangioma of the L2 v ertebral body L3-4: Normal endplates. Normal disc height, hydration and morphology. There is bilateral facet arthrosis. Normal central canal and bilateral lateral recesses. Normal bilateral interver tebral neural foramina. L4-5: Normal endplates. There is an annular bulge. There is bilateral facet arthrosis. Normal spinal canal and neural foramina L5-S1: Normal in place. There is a broad-based central disc herniation of the protrusion type measuring approximately 5 x 10 mm in AP and transverse diameter (axial T2 series 6 image 3). There is bilateral facet arthrosis. Normal spinal canal an d neural foramina. Normal visualized sacral ala. There is moderate paraspinal muscular atrophy. IMPRESSION: Old compression fracture of L1, status post kyphop lasty. L3-4 bilateral facet arthrosis. L4-5 annular bulge with bilateral facet arthrosis. L5-S1 broad-based central disc herniation of the protrusion type. Bilateral facet arthrosis. Electronic ally Signed: Herve Jimenez MD, FACR at 17:43 EST , Service support [phone], CC: ELIZABETH DE LEON M.D.; Madeline Florez DO Associate Professor Of English: Signed 25-Aug-2015 Spine Thoracic (Routine) Result: Comments: See Note; NOTES: [facility] Imaging Services [address] [place] [address] 4d Spine Thoracic (Routine) MR#: [id number] Acct: [id number] Name: SHREYAS SHARIF Keira Rep #: [id number] : 1950 F 65 From: Herve Jimenez MD PCP: Madeline Florez DO Status: REG CLI Study: Spine Thoracic (Routine) Date of Exam: 08/25/15 Exam# [id number] Ordering Dr: ELIZABETH RUIZ M.D. STUDY: MRI THORACIC SPINE WITHOUT CONTRAST REASON FOR EXAM: Female, 65 years old. Fall , kyphoplasty ,still has severe back pain down into legs since surgery, trouble walk ing TECHNIQUE: Standardized fat and water weighted pulse sequences were obtained in the sagittal and axial planes. COMPARISON: None. FINDINGS: Normal kyphosi s of the thoracic spine. There is no substantial scoliosis. There is an old compression fracture of the L1 vertebral body, status post kyphoplasty. There is mild degree of multilevel degenerative di sease with disc space narrowing and disc desiccation. Normal vertebral bodies, posterior elements and spinal canal. Normal neural foramina. Normal visualized thoracic cord. Normal conus medullaris t hat terminates at the . The soft tissue structures are unremarkable. IMPRESSION: Age-appropriate thoracic spondylosis. Of fracture of the L1 vertebral body, status post kyphoplasty. Electronically Signed: Herve Jimenez MD, FACR at 17:45 EST , Service support [phone], CC: ELIZABETH DE LEON M.D.; Komal Florez DO Associate Professor Of English: Signed 17-Aug-2015 Chest PA and Lateral Result: Comments: See Note; NOTES: [facility] Imaging Services [address] [place] [address] [place] 4d Chest PA and Lateral MR#: [id number] Acct: [id number] Name: SHREYAS KATHLEEN Rep #: [id number] : 1950 F 65 From: Elias Finn MD PCP: Madeline Florez DO Status: REG CLI Study: Chest PA and Lateral Date of Exam: 08/17/15 Exam# [id number] Ordering Dr: Madeline Florez DO STUDY: X-RAY CHEST REASON FOR EXAM: Female, 65 years old. Staphylococcal infection. TECHNIQUE: PA and lateral views of the chest. COMPARISON: Comparison is made with prior study dated July 18, 2015. FINDINGS: Calcified granuloma in the right lower lobe. Persistent mild degree of increased markings in the right middle lobe. This has impr chris since prior study. There is no demonstrated pleural abnormality. Normal size heart. Normal mediastinum and marycruz. Normal visualized pulmonary arteries. There is atherosclerotic calcification of the aortic arch with tortuosity. There are diffuse degenerative changes of the visualized thoracic spine. Prior vertebroplasty of the L2 vertebrae. Normal visualized ribs, clavicles, and shoulders. There is no demonstrated abnormality of the visualized soft tissue structures of the upper abdomen. IMPRESSION: Residual changes persist in the right middle l obe and there has been some improvement. Further followup is recommended. Electronically Signed: Elias Finn MD at 11:09 EST Tel [phone], Service support [phone], Fax RAD/Chest PA and Lateral IMPRESSION: Residual changes persist in the right middle lobe and there has been some improvement. Further followup is recommended. Electr onically Signed: Elias Finn MD at 11:09 EST Tel [phone], Service support [phone], CC: Madeline Florez DO Associate Professor Of English: Signed 12-Aug-2015 Discharge Instruction Result: Comments: See Note; NOTES: [facility] Medical Records Department [address] [place] [address] Discharge Instruction 08/10/15 1702 MR#: [id number] Acct: [id number] Name: SHREYAS KATHLEEN Rep #: [id number] : 1950 65 From: Denny Bone MD PCP: Madeline Florez DO Status: DEP ER ED Disposition - Plan for ED Patient: Chief Complaint: Abn Labs Instructi ons: ED Bacteremia, Rule Out (Adult) Referrals: Katelyn Arenas MD [STAFF PHYSICIAN] - 2 Days What to do if you have Problems For any increased pain, shortness of breath, bleeding, nausea or vomit ing, chest pain, or any unexpected problems, contact your doctor. Call [facility] ([phone]) or report to the closest Emergency Room. Call 911 if necessary. 08/12/15 1502 <Elect ronically signed by Denny Bone MD> Date Denny Bone MD Cosigner Signature (If Indicated): Date CC: Madeline Florez DO 12-Aug-2015 Emergency Department Summary Result: Comments: See Note; NOTES: [facility] Medical Records Department [address] [place] [address] Emergency Department Summary MR#: [id number] Acct: [id number] Name: SHREYAS KATHLEEN Rep #: [id number] : 1950 65 From: Denny Bone MD PCP: Madeline Florez DO Status: DEP ER DATE OF SERVICE: 08/10/2015 METHOD OF ARRIVAL: Private car. CHIEF COMPLAINT: Po sitive blood culture. HISTORY OF PRESENT ILLNESS: A 65-year-old female, patient of Dr. Florez as well as Dr. Arenas, who had MRSA bacteremia 3 weeks ago. She was hospitalized and then had a PICC line p laced and was on antibiotics as an outpatient. Approximately 1 week after finishing the antibiotic, the patient had blood cultures obtained at [facility] and they were called to Dr. Arenas 1 out of the 4 bottles was positive for gram-positive cocci in clusters. REVIEW OF SYSTEMS: The patient denies any fever, chills, chest pain, cough or trouble breathing. She has had nausea, but no vomiting or diarrhea. No abdominal pain. No dysuria, frequency, rash, headache or other complaints. In fact, she reports she feels the best she has felt in quite some time. PHYSICAL EXAMINATION: GENERAL: Re veals alert woman, in no acute distress. VITAL SIGNS: Temperature 96.9, blood pressure 163/80, heat rate 81, respiratory rate 18, pulse oximetry 95% on room air. She is not hypoxic. CARDIOVASCULAR: S ignificant physical exam findings include the cardiovascular exam, which shows regular rate and rhythm with no murmur. RESPIRATORY: Clear to auscultation bilaterally. The remainder of the physical ex am is unremarkable. Please see T-sheet for details. TEST RESULTS: The patient had a CBC that is remarkable for segmented neutrophils of 77, lymphocytes of 18. Chem-7 is remarkable for a sodium of 13 4, chloride of 97, glucose of 356, BUN of 20, creatinine of 1.62. EMERGENCY DEPARTMENT COURSE: The patient was given a dose of daptomycin IV as SHE HAS A VANCOMYCIN ALLERGY. She had repeat blood cu ltures obtained prior to this as she was given insulin subq. TREATMENT PLAN: The patient discussed with Dr. Arenas. She will be discharged and instructed to follow up with Dr. Arenas in the office for further evaluation and treatment. DISPOSITION: To home in stable condition. IMPRESSION: Acute bacteremia. MD Nacho Ramirez C: Madeline Bonilla MD T: [facility] JOB: [id number] 08/12/15 1502 <Electronically signed by Denny Bone MD> Date Denny Bone MD Cosigner Signature (If Indicated): Date ___ CC: Madeline Florez DO; Katelyn Arenas MD Date Dictated: 08/10/151708 Date Transcribed: 08/10/151708 Associate Professor Of English: Signed Social History Name Dates Details No Caffeine Use Status: Active No Drug Use Status: Active Non Drinker/No Alcohol Use Status: Active Tobacco use: Never smoker. Status: Active Smoking Status Name Dates Details Never smoker Vital Signs Date Test Result Details :48 Pulse 107 /min Comments: Pattern: Regular Respiration Rate 19 /min Comments: Pattern: Unlabored O2 SAT 92 % Comments: Room air BP Systolic 122 mm[Hg] Comments: Patient Position: Sitting; Cuff Location: Left Arm; Cuff Size: Standard BP Diastolic 74 mm[Hg] Comments: Patient Position: Sitting; Cuff Location: Left Arm; Cuff Size: Standard Weight 179.125 lb Height 63 in Body Mass Index Calculated 31.73 kg/m2 Body Surface Area Calculated 1.85 m2 :46 Temperature 97.5 f Pulse 89 /min Comments: Pattern: Regular Respiration Rate 16 /min Comments: Pattern: Unlabored O2 SAT 96 % Comments: Room air BP Systolic 120 mm[Hg] Comments: Patient Position: Sitting; Cuff Location: Left Arm; Cuff Size: Standard BP Diastolic 78 mm[Hg] Comments: Patient Position: Sitting; Cuff Location: Left Arm; Cuff Size: Standard Weight 179.125 lb Height 63 in Body Mass Index Calculated 31.73 kg/m2 Body Surface Area Calculated 1.85 m2 :51 Comments: was tested for cateracts in sep 2017hearing within normal limits Temperature 97.2 f Comments: Method: Temporal Pulse 97 /min Comments: Pattern: Regular Respiration Rate 18 /min Comments: Pattern: Unlabored O2 SAT 94 % Comments: Room air BP Systolic 120 mm[Hg] Comments: Patient Position: Sitting; Cuff Location: Left Arm; Cuff Size: Standard BP Diastolic 80 mm[Hg] Comments: Patient Position: Sitting; Cuff Location: Left Arm; Cuff Size: Standard Weight 179.125 lb Height 63 in Body Mass Index Calculated 31.73 kg/m2 Body Surface Area Calculated 1.85 m2 [id number]:20 Temperature 97.8 f Comments: Method: Temporal Pulse 102 /min Comments: Pattern: Regular Respiration Rate 18 /min Comments: Pattern: Unlabored O2 SAT 94 % Comments: Room air BP Systolic 130 mm[Hg] Comments: Patient Position: Sitting; Cuff Location: Left Arm; Cuff Size: Standard BP Diastolic 80 mm[Hg] Comments: Patient Position: Sitting; Cuff Location: Left Arm; Cuff Size: Standard Weight 179.125 lb Height 63 in Body Mass Index Calculated 31.73 kg/m2 Body Surface Area Calculated 1.85 m2 :58 Temperature 96.9 f Comments: Method: Temporal Pulse 107 /min Comments: Pattern: Regular Respiration Rate 18 /min Comments: Pattern: Unlabored O2 SAT 94 % Comments: Room air BP Systolic 152 mm[Hg] Comments: Patient Position: Sitting; Cuff Location: Left Arm; Cuff Size: Standard BP Diastolic 88 mm[Hg] Comments: Patient Position: Sitting; Cuff Location: Left Arm; Cuff Size: Standard Weight 182 lb Height 63 in Body Mass Index Calculated 32.24 kg/m2 Body Surface Area Calculated 1.86 m2 :21 Temperature 97.6 f Pulse 100 /min Comments: Pattern: Regular Respiration Rate 18 /min Comments: Pattern: Unlabored O2 SAT 94 % Comments: Room air BP Systolic 112 mm[Hg] Comments: Patient Position: Sitting; Cuff Location: Left Arm; Cuff Size: Standard BP Diastolic 72 mm[Hg] Comments: Patient Position: Sitting; Cuff Location: Left Arm; Cuff Size: Standard Weight 186 lb Height 63 in Body Mass Index Calculated 32.95 kg/m2 Body Surface Area Calculated 1.88 m2 :50 Temperature 97 f Pulse 106 /min Comments: Pattern: Regular Respiration Rate 16 /min Comments: Pattern: Unlabored O2 SAT 95 % Comments: Room air BP Systolic 122 mm[Hg] Comments: Patient Position: Sitting; Cuff Location: Left Arm; Cuff Size: Standard BP Diastolic 74 mm[Hg] Comments: Patient Position: Sitting; Cuff Location: Left Arm; Cuff Size: Standard Weight 189.25 lb Height 63 in Body Mass Index Calculated 33.52 kg/m2 Body Surface Area Calculated 1.89 m2 :15 Temperature 97.8 f Pulse 82 /min Comments: Pattern: Regular Respiration Rate 16 /min Comments: Pattern: Unlabored O2 SAT 95 % Comments: Room air BP Systolic 116 mm[Hg] Comments: Patient Position: Sitting; Cuff Location: Left Arm; Cuff Size: Standard BP Diastolic 78 mm[Hg] Comments: Patient Position: Sitting; Cuff Location: Left Arm; Cuff Size: Standard Weight 186.125 lb Height 63 in Body Mass Index Calculated 32.97 kg/m2 Body Surface Area Calculated 1.88 m2 :19 Temperature 96.3 f Pulse 97 /min Comments: Pattern: Regular Respiration Rate 20 /min Comments: Pattern: Unlabored O2 SAT 97 % Comments: Room air BP Systolic 132 mm[Hg] Comments: Patient Position: Sitting; Cuff Location: Left Arm; Cuff Size: Standard BP Diastolic 80 mm[Hg] Comments: Patient Position: Sitting; Cuff Location: Left Arm; Cuff Size: Standard Weight 198.5 lb Height 63 in Body Mass Index Calculated 35.16 kg/m2 Body Surface Area Calculated 1.93 m2 :18 Temperature 97.4 f Pulse 92 /min Comments: Pattern: Regular Respiration Rate 16 /min Comments: Pattern: Unlabored O2 SAT 94 % Comments: Room air BP Systolic 132 mm[Hg] Comments: Patient Position: Sitting; Cuff Location: Left Arm; Cuff Size: Standard BP Diastolic 82 mm[Hg] Comments: Patient Position: Sitting; Cuff Location: Left Arm; Cuff Size: Standard Weight 195 lb Height 63 in Body Mass Index Calculated 34.54 kg/m2 Body Surface Area Calculated 1.91 m2 :23 Temperature 98.2 f Comments: Method: Temporal Pulse 74 /min Comments: Pattern: Regular Respiration Rate 16 /min Comments: Pattern: Unlabored O2 SAT 97 % Comments: Room air BP Systolic 120 mm[Hg] Comments: Patient Position: Sitting; Cuff Location: Left Arm; Cuff Size: Standard BP Diastolic 70 mm[Hg] Comments: Patient Position: Sitting; Cuff Location: Left Arm; Cuff Size: Standard Weight 187.25 lb Height 63 in Body Mass Index Calculated 33.17 kg/m2 Body Surface Area Calculated 1.88 m2 :48 Temperature 97.2 f Pulse 81 /min Comments: Pattern: Regular Respiration Rate 16 /min Comments: Pattern: Unlabored O2 SAT 97 % Comments: Room air BP Systolic 126 mm[Hg] Comments: Patient Position: Sitting; Cuff Location: Left Arm; Cuff Size: Standard BP Diastolic 82 mm[Hg] Comments: Patient Position: Sitting; Cuff Location: Left Arm; Cuff Size: Standard Weight 187.25 lb Height 63 in Body Mass Index Calculated 33.17 kg/m2 Body Surface Area Calculated 1.88 m2 :02 Temperature 98.8 f Pulse 112 /min Comments: Pattern: Regular Respiration Rate 19 /min Comments: Pattern: Unlabored O2 SAT 92 % Comments: Room air BP Systolic 142 mm[Hg] Comments: Patient Position: Sitting; Cuff Location: Left Arm; Cuff Size: Standard BP Diastolic 96 mm[Hg] Comments: Patient Position: Sitting; Cuff Location: Left Arm; Cuff Size: Standard Weight 185 lb Height 63 in Body Mass Index Calculated 32.77 kg/m2 Body Surface Area Calculated 1.87 m2 :43 Temperature 99.5 f Comments: Method: Temporal Pulse 70 /min Comments: Pattern: Regular Respiration Rate 16 /min Comments: Pattern: Unlabored O2 SAT 95 % Comments: Room air BP Systolic 132 mm[Hg] Comments: Patient Position: Sitting; Cuff Location: Left Arm; Cuff Size: Standard BP Diastolic 80 mm[Hg] Comments: Patient Position: Sitting; Cuff Location: Left Arm; Cuff Size: Standard Weight 190 lb Height 63 in Body Mass Index Calculated 33.66 kg/m2 Body Surface Area Calculated 1.89 m2 :15 Temperature 98 f Pulse 81 /min Comments: Pattern: Regular Respiration Rate 16 /min Comments: Pattern: Unlabored O2 SAT 97 % Comments: Room air BP Systolic 142 mm[Hg] Comments: Patient Position: Sitting; Cuff Location: Left Arm; Cuff Size: Standard BP Diastolic 82 mm[Hg] Comments: Patient Position: Sitting; Cuff Location: Left Arm; Cuff Size: Standard Weight 190 lb Height 63 in Body Mass Index Calculated 33.66 kg/m2 Body Surface Area Calculated 1.89 m2 :14 Temperature 98.2 f Pulse 76 /min Comments: Pattern: Regular Respiration Rate 18 /min Comments: Pattern: Unlabored O2 SAT 94 % Comments: Room air BP Systolic 114 mm[Hg] Comments: Patient Position: Sitting; Cuff Location: Left Arm; Cuff Size: Standard BP Diastolic 68 mm[Hg] Comments: Patient Position: Sitting; Cuff Location: Left Arm; Cuff Size: Standard Weight 193.25 lb Height 63 in Body Mass Index Calculated 34.23 kg/m2 Body Surface Area Calculated 1.91 m2 :32 Temperature 97.3 f Comments: Method: Tympanic Pulse 91 /min Comments: Pattern: Regular Respiration Rate 18 /min Comments: Pattern: Unlabored O2 SAT 95 % Comments: Room air BP Systolic 118 mm[Hg] Comments: Patient Position: Sitting; Cuff Location: Left Arm; Cuff Size: Standard BP Diastolic 76 mm[Hg] Comments: Patient Position: Sitting; Cuff Location: Left Arm; Cuff Size: Standard Weight 193.25 lb Height 63 in Body Mass Index Calculated 34.23 kg/m2 Body Surface Area Calculated 1.91 m2 :13 Temperature 98.2 f Pulse 86 /min Comments: Pattern: Regular Respiration Rate 18 /min Comments: Pattern: Unlabored O2 SAT 96 % Comments: Room air BP Systolic 124 mm[Hg] Comments: Patient Position: Sitting; Cuff Location: Left Arm; Cuff Size: Standard BP Diastolic 82 mm[Hg] Comments: Patient Position: Sitting; Cuff Location: Left Arm; Cuff Size: Standard Weight 201.375 lb Height 63 in Body Mass Index Calculated 35.67 kg/m2 Body Surface Area Calculated 1.94 m2 :29 Comments: Last Mammogram date unknown, given order todayLast vision screen 2014 [facility] Temperature 98.3 f Pulse 75 /min Comments: Pattern: Regular Respiration Rate 16 /min Comments: Pattern: Unlabored O2 SAT 98 % Comments: Room air BP Systolic 120 mm[Hg] Comments: Patient Position: Sitting; Cuff Location: Left Arm; Cuff Size: Standard BP Diastolic 80 mm[Hg] Comments: Patient Position: Sitting; Cuff Location: Left Arm; Cuff Size: Standard Weight 201.375 lb Height 63 in Body Mass Index Calculated 35.67 kg/m2 Body Surface Area Calculated 1.94 m2 :58 Temperature 97.6 f Pulse 75 /min Comments: Pattern: Regular Respiration Rate 16 /min Comments: Pattern: Unlabored O2 SAT 96 % Comments: Room air BP Systolic 138 mm[Hg] Comments: Patient Position: Sitting; Cuff Location: Left Arm; Cuff Size: Standard BP Diastolic 82 mm[Hg] Comments: Patient Position: Sitting; Cuff Location: Left Arm; Cuff Size: Standard Weight 207.375 lb Height 63 in Body Mass Index Calculated 36.73 kg/m2 Body Surface Area Calculated 1.96 m2 :41 Temperature 97.1 f Pulse 81 /min Comments: Pattern: Regular Respiration Rate 17 /min Comments: Pattern: Unlabored O2 SAT 96 % Comments: Room air BP Systolic 134 mm[Hg] Comments: Patient Position: Sitting; Cuff Location: Left Arm; Cuff Size: Standard BP Diastolic 80 mm[Hg] Comments: Patient Position: Sitting; Cuff Location: Left Arm; Cuff Size: Standard Weight 215.125 lb Height 63 in Body Mass Index Calculated 38.11 kg/m2 Body Surface Area Calculated 1.99 m2 :52 Temperature 97.9 f Pulse 84 /min Comments: Pattern: Regular Respiration Rate 16 /min Comments: Pattern: Unlabored O2 SAT 98 % Comments: Room air BP Systolic 124 mm[Hg] Comments: Patient Position: Sitting; Cuff Location: Left Arm; Cuff Size: Standard BP Diastolic 82 mm[Hg] Comments: Patient Position: Sitting; Cuff Location: Left Arm; Cuff Size: Standard Weight 224.5 lb Height 63 in Body Mass Index Calculated 39.77 kg/m2 Body Surface Area Calculated 2.03 m2 :54 Temperature 97.2 f Pulse 68 /min Comments: Pattern: Regular Respiration Rate 18 /min Comments: Pattern: Unlabored O2 SAT 98 % Comments: Room air BP Systolic 122 mm[Hg] Comments: Patient Position: Sitting; Cuff Location: Left Arm; Cuff Size: Standard BP Diastolic 74 mm[Hg] Comments: Patient Position: Sitting; Cuff Location: Left Arm; Cuff Size: Standard Weight 224.5 lb Height 63 in Body Mass Index Calculated 39.77 kg/m2 Body Surface Area Calculated 2.03 m2 :35 Temperature 97.2 f Pulse 83 /min Comments: Pattern: Regular Respiration Rate 18 /min Comments: Pattern: Unlabored O2 SAT 95 % Comments: Room air BP Systolic 142 mm[Hg] Comments: Patient Position: Sitting; Cuff Location: Left Arm; Cuff Size: Standard BP Diastolic 82 mm[Hg] Comments: Patient Position: Sitting; Cuff Location: Left Arm; Cuff Size: Standard Weight 224.5 lb Height 63 in Body Mass Index Calculated 39.77 kg/m2 Body Surface Area Calculated 2.03 m2 :15 Temperature 97.4 f Pulse 84 /min Comments: Pattern: Regular Respiration Rate 16 /min Comments: Pattern: Unlabored O2 SAT 94 % Comments: Room air BP Systolic 122 mm[Hg] Comments: Patient Position: Sitting; Cuff Location: Left Arm; Cuff Size: Standard BP Diastolic 82 mm[Hg] Comments: Patient Position: Sitting; Cuff Location: Left Arm; Cuff Size: Standard Weight 209 lb Height 63 in Body Mass Index Calculated 37.02 kg/m2 Body Surface Area Calculated 1.97 m2 :15 Temperature 97.7 f Pulse 83 /min Comments: Pattern: Regular Respiration Rate 16 /min Comments: Pattern: Unlabored O2 SAT 96 % Comments: Room air BP Systolic 142 mm[Hg] Comments: Patient Position: Sitting; Cuff Location: Left Arm; Cuff Size: Standard BP Diastolic 86 mm[Hg] Comments: Patient Position: Sitting; Cuff Location: Left Arm; Cuff Size: Standard Weight 209 lb Height 63 in Body Mass Index Calculated 37.02 kg/m2 Body Surface Area Calculated 1.97 m2 :26 Temperature 97 f Comments: Method: Tympanic Pulse 79 /min Comments: Pattern: Regular Respiration Rate 18 /min Comments: Pattern: Unlabored O2 SAT 95 % Comments: Room air BP Systolic 140 mm[Hg] Comments: Patient Position: Sitting; Cuff Location: Left Arm; Cuff Size: Standard BP Diastolic 72 mm[Hg] Comments: Patient Position: Sitting; Cuff Location: Left Arm; Cuff Size: Standard Weight 209 lb Height 63 in Body Mass Index Calculated 37.02 kg/m2 Body Surface Area Calculated 1.97 m2 [id number]:34 BP Systolic 130 mm[Hg] Comments: Patient Position: Sitting BP Diastolic 80 mm[Hg] Comments: Patient Position: Sitting [id number]-Vvz-[id number]:03 Temperature 98 f Comments: Method: Temporal Pulse 75 /min Comments: Pattern: Regular Respiration Rate 17 /min Comments: Pattern: Unlabored O2 SAT 92 % Comments: Room air BP Systolic 148 mm[Hg] Comments: Patient Position: Sitting; Cuff Location: Left Arm; Cuff Size: Standard BP Diastolic 92 mm[Hg] Comments: Patient Position: Sitting; Cuff Location: Left Arm; Cuff Size: Standard Weight 209 lb Height 63 in Body Mass Index Calculated 37.02 kg/m2 Body Surface Area Calculated 1.97 m2 :28 Temperature 96.5 f Comments: Method: Temporal Pulse 120 /min Comments: Pattern: Regular Respiration Rate 20 /min Comments: Pattern: Unlabored O2 SAT 92 % Comments: 2L O2 BP Systolic 140 mm[Hg] Comments: Patient Position: Sitting; Cuff Location: Left Arm; Cuff Size: Large BP Diastolic 64 mm[Hg] Comments: Patient Position: Sitting; Cuff Location: Left Arm; Cuff Size: Large Results Date Description Value Details : MICROALBUMIN: CREATININE RATIO Comments: Jun 19; PATIENT WAS FASTINGPERFORMED BY: [facility] [id number] ([id number]) AND ([id number]) Alb/Creat Ratio 266.9 {mg/g_creat} (Abnormal) Range: 0.0-30.0 Albumin, Urine 168.7 ug/mL (Normal) Creatinine, Urine 63.2 mg/dL (Normal) :00 Metabolic Panel, Comprehensive Comments: Jun 19; PATIENT WAS FASTINGPERFORMED BY: [facility]lhjdl6840 [facility] [id number] ([id number]) ALT (SGPT) 14 [iU]/L (Normal) Range: 0-32 AST (SGOT) 19 [iU]/L (Normal) Range: 0-40 Alkaline Phosphatase 92 [iU]/L (Normal) Range: 39-117 Bilirubin, Total 0.2 mg/dL (Normal) Range: 0.0-1.2 A/G Ratio 1.6 (Normal) Range: 1.2-2.2 Globulin, Total 2.8 g/dL (Normal) Range: 1.5-4.5 Albumin 4.4 g/dL (Normal) Range: 3.6-4.8 Protein, Total 7.2 g/dL (Normal) Range: 6.0-8.5 Calcium 9.9 mg/dL (Normal) Range: 8.7-10.3 Carbon Dioxide, Total 23 mmol/L (Normal) Range: 20-29 Chloride 97 mmol/L (Normal) Range: 96-106 Potassium 4.4 mmol/L (Normal) Range: 3.5-5.2 Sodium 140 mmol/L (Normal) Range: 134-144 BUN/Creatinine Ratio 9 (Abnormal) Range: 12-28 eGFR If Africn Am 46 mL/min/1.73 (Abnormal) eGFR If NonAfricn Am 40 mL/min/1.73 (Abnormal) Creatinine 1.38 mg/dL (Abnormal) Range: 0.57-1.00 BUN 13 mg/dL (Normal) Range: 8-27 Glucose 121 mg/dL (Abnormal) Range: 65-99 04-Bht-60721:00 HGB A1C ([id number]) Comments: June 19; PATIENT WAS FASTINGPERFORMED BY: [facility] [id number] Hemoglobin A1c 7.0 % (Abnormal) Range: 4.8-5.6 Comments: . Prediabetes: 5.7 - 6.4 Diabetes: >6.4 Glycemic control for adults with diabetes: <7.0 23-Ziz-[id number]:33 ALKALINE PHOSPHATASE-ISOENZYM Comments: PATIENT NOT FASTINGPERFORMED BY: [facility] [id number] ([id number]) Intestinal Frac.: 0 % (Normal) Range: 0-18 Bone Fraction: 27 % (Normal) Range: 14-68 Liver Fraction: 73 % (Normal) Range: 18-85 Alkaline Phosphatase 89 [iU]/L (Normal) Range: 39-117 62-Iay-746526:33 CBC, Platelets & Auto Diff Comments: PATIENT NOT FASTINGPERFORMED BY: [facility] [id number] ([id number]) Immature Grans (Abs) 0.0 {x10E3/uL} (Normal) Range: 0.0-0.1 Immature Granulocytes 0 % (Normal) Baso (Absolute) 0.0 {x10E3/uL} (Normal) Range: 0.0-0.2 Eos (Absolute) 0.1 {x10E3/uL} (Normal) Range: 0.0-0.4 Monocytes(Absolute) 0.2 {x10E3/uL} (Normal) Range: 0.1-0.9 Lymphs (Absolute) 3.0 {x10E3/uL} (Normal) Range: 0.7-3.1 Neutrophils (Absolute) 2.5 {x10E3/uL} (Normal) Range: 1.4-7.0 Basos 0 % (Normal) Eos 2 % (Normal) Monocytes 4 % (Normal) Lymphs 52 % (Normal) Neutrophils 42 % (Normal) Platelets 265 {x10E3/uL} (Normal) Range: 150-379 RDW 13.4 % (Normal) Range: 12.3-15.4 MCHC 34.0 g/dL (Normal) Range: 31.5-35.7 MCH 30.3 pg (Normal) Range: 26.6-33.0 MCV 89 fL (Normal) Range: 79-97 Hematocrit 35.9 % (Normal) Range: 34.0-46.6 Hemoglobin 12.2 g/dL (Normal) Range: 11.1-15.9 RBC 4.03 {x10E6/uL} (Normal) Range: 3.77-5.28 WBC 5.9 {x10E3/uL} (Normal) Range: 3.4-10.8 36-Dyv-938790:22 HgA1C , Office ([id number]) Comments: 7.3 HgA1C , Office 7.3 % (Abnormal) Range: 4.6 - 7.1 12-Vpc-084788:22 Blood Glucose , Office ([id number]) Blood Glucose , Office 173 (Normal) 18-Jba-82118:40 Basic Metabolic Profile (BMP) Comments: SEND RESULTS OF BMP TO .[facility] [address] [place], [address] GAP 11 (Normal) Range: 5-15 CO2 27.0 mmol/L (Normal) Range: 21.0-32.0 CL 97 mmol/L (Abnormal) Range: 98-107 K 4.1 mmol/L (Normal) Range: 3.5-5.1 NA 135 mmol/L (Abnormal) Range: 136-145 CA 9.5 mg/dL (Normal) Range: 8.5-10.1 BUN/CRE 11.7 {RATIO} (Normal) Range: 10-20 EST GFR - AA 38 mL/min (Abnormal) Comments: GFR Calc EST GFR 32 mL/min (Abnormal) Comments: Non- GFR Calc CREAT,SERUM 1.71 mg/dL (Abnormal) Range: 0.55-1.02 Comments: The validity of the calculated GFR AND GFRAA in patients over70 years has not been determined. Clinical correlation isessential. BUN 20 mg/dL (Abnormal) Range: 7-18 GLU 164 mg/dL (Abnormal) Range: 74-106 Comments: Fasting Glucose result greater than or equal to 126 mg/dLsuggests DIABETES MELLITUS per A.D.A. criteria.Please note revised GLUCOSE reference range vdijsdnoc03/02/2018. 03-Qzb-54273:40 Liver Profile Comments: SEND RESULTS OF BMP TO .[facility] [address] [place], [address] D BILI 0.09 mg/dL (Normal) Range: 0.00-0.30 T BILI 0.40 mg/dL (Normal) Range: 0.20-1.00 ALT 22 U/L (Normal) Range: 13-56 ALK P 103 U/L (Normal) Range: 45-117 AST 17 U/L (Normal) Range: 15-37 GLOB 4.0 g/dL (Normal) Range: 2.2-4.2 ALB 3.8 g/dL (Normal) Range: 3.2-5.0 T PROT 7.8 g/dL (Normal) Range: 6.4-8.2 02-Xpl-987592:41 CALCIFEDIOL (69993) Comments: PATIENT WAS FASTINGPERFORMED BY: LabCoSaint [facility]'s Hospital at DenvilleBxvgqj5329 [facility] [id number] Vitamin D, 25-Hydroxy 44.2 ng/mL (Normal) Range: 30.0-100.0 Comments: Vitamin D deficiency has been defined by the [place] of[place]icine and an Endocrine Society practice guideline as alevel of serum 25-OH vitamin D less than 20 ng/mL (1,2).The Endocrine Society went on to further define vitamin Dinsufficiency as a level between 21 and 29 ng/mL (2).1. IOM ([place] of Medicine). 2010. Dietary reference intakes for calcium and D. [place]: The National Academies Press.2. Jacinto MF, Eddy NOGUEIRA, Quintin JAVED, et al. Evaluation, treatment, and prevention of vitamin D deficiency: an Endocrine Society clinical practice guideline. JCEM. 2010; 96(7):1911-30. 31-Var-553825:41 METABOLIC PANEL, Comments: PATIENT WAS FASTINGPERFORMED BY: LabCoSaint Clare's Hospital at DenvilleUnmaxo8646 [facility] [id number] Information: [id number]; OV 03/19 COMPREHENSIVE (89021) ALT (SGPT) 15 [iU]/L (Normal) Range: 0-32 AST (SGOT) 21 [iU]/L (Normal) Range: 0-40 Alkaline Phosphatase 100 [iU]/L (Normal) Range: 39-117 Bilirubin, Total <0.2 mg/dL (Normal) Range: 0.0-1.2 A/G Ratio 1.6 (Normal) Range: 1.2-2.2 Globulin, Total 2.6 g/dL (Normal) Range: 1.5-4.5 Albumin 4.2 g/dL (Normal) Range: 3.6-4.8 Protein, Total 6.8 g/dL (Normal) Range: 6.0-8.5 Calcium 9.6 mg/dL (Normal) Range: 8.7-10.3 Carbon Dioxide, Total 27 mmol/L (Normal) Range: 20-29 Chloride 98 mmol/L (Normal) Range: 96-106 Potassium 4.5 mmol/L (Normal) Range: 3.5-5.2 Sodium 139 mmol/L (Normal) Range: 134-144 BUN/Creatinine Ratio 9 (Abnormal) Range: 12-28 eGFR If Africn Am 50 mL/min/1.73 (Abnormal) eGFR If NonAfricn Am 43 mL/min/1.73 (Abnormal) Creatinine 1.29 mg/dL (Abnormal) Range: 0.57-1.00 BUN 12 mg/dL (Normal) Range: 8-27 Glucose 143 mg/dL (Abnormal) Range: 65-99 65-Ubz-609461:31 Blood Glucose , Office (23180) Blood Glucose , Office 211 (Normal) 87-Mwo-931189:31 HgA1C , Office (71812) HgA1C , Office 6.8 % (Normal) Range: 4.6 - 7.1 75-Wiq-677684:33 CBC, Platelets & Auto Diff Comments: PATIENT WAS FASTINGPERFORMED BY: LabCoSaint Clare's Hospital at DenvilleDzjble1810 [facility] [id number] (64774) Immature Grans (Abs) 0.0 {x10E3/uL} (Normal) Range: 0.0-0.1 Immature Granulocytes 0 % (Normal) Baso (Absolute) 0.0 {x10E3/uL} (Normal) Range: 0.0-0.2 Eos (Absolute) 0.2 {x10E3/uL} (Normal) Range: 0.0-0.4 Monocytes(Absolute) 0.4 {x10E3/uL} (Normal) Range: 0.1-0.9 Lymphs (Absolute) 3.7 {x10E3/uL} (Abnormal) Range: 0.7-3.1 Neutrophils (Absolute) 3.4 {x10E3/uL} (Normal) Range: 1.4-7.0 Basos 1 % (Normal) Eos 3 % (Normal) Monocytes 5 % (Normal) Lymphs 47 % (Normal) Neutrophils 44 % (Normal) Platelets 276 {x10E3/uL} (Normal) Range: 150-379 RDW 13.2 % (Normal) Range: 12.3-15.4 MCHC 33.0 g/dL (Normal) Range: 31.5-35.7 MCH 30.4 pg (Normal) Range: 26.6-33.0 MCV 92 fL (Normal) Range: 79-97 Hematocrit 39.1 % (Normal) Range: 34.0-46.6 Hemoglobin 12.9 g/dL (Normal) Range: 11.1-15.9 RBC 4.24 {x10E6/uL} (Normal) Range: 3.77-5.28 WBC 7.7 {x10E3/uL} (Normal) Range: 3.4-10.8 82-Fyi-231973:33 Lipid Panel (35078) Comments: PATIENT WAS FASTINGPERFORMED BY: Siftit Rrkluq8983 [facility] [id number] LDL/HDL Ratio 0.9 {ratio} (Normal) Range: 0.0-3.2 Comments: LDL/HDL Ratio Men Women 1/2 Avg.Risk 1.0 1.5 Av g.Risk 3.6 3.2 2X Avg.Risk 6.2 5.0 3X Avg.Risk 8.0 6.1 LDL Cholesterol Calc 35 mg/dL (Normal) Range: 0-99 VLDL Cholesterol Kiesha 53 mg/dL (Abnormal) Range: 5-40 HDL Cholesterol 41 mg/dL (Normal) Triglycerides 264 mg/dL (Abnormal) Range: 0-149 Cholesterol, Total 129 mg/dL (Normal) Range: 100-199 :33 Metabolic Panel, Comprehensive Comments: PATIENT WAS FASTINGPERFORMED BY: Pimovationlin6370 [facility] [id number] (47089) ALT (SGPT) 18 [iU]/L (Normal) Range: 0-32 AST (SGOT) 22 [iU]/L (Normal) Range: 0-40 Alkaline Phosphatase 94 [iU]/L (Normal) Range: 39-117 Bilirubin, Total <0.2 mg/dL (Normal) Range: 0.0-1.2 A/G Ratio 1.6 (Normal) Range: 1.2-2.2 Globulin, Total 2.7 g/dL (Normal) Range: 1.5-4.5 Albumin 4.3 g/dL (Normal) Range: 3.6-4.8 Protein, Total 7.0 g/dL (Normal) Range: 6.0-8.5 Calcium 10.3 mg/dL (Normal) Range: 8.7-10.3 Carbon Dioxide, Total 25 mmol/L (Normal) Range: 18-29 Chloride 95 mmol/L (Abnormal) Range: 96-106 Potassium 4.5 mmol/L (Normal) Range: 3.5-5.2 Sodium 138 mmol/L (Normal) Range: 134-144 BUN/Creatinine Ratio 12 (Normal) Range: 12-28 eGFR If Africn Am 50 mL/min/1.73 (Abnormal) eGFR If NonAfricn Am 43 mL/min/1.73 (Abnormal) Creatinine 1.29 mg/dL (Abnormal) Range: 0.57-1.00 BUN 16 mg/dL (Normal) Range: 8-27 Glucose 150 mg/dL (Abnormal) Range: 65-99 :33 MICROALBUMIN: CREATININE RATIO Comments: PATIENT WAS FASTINGPERFORMED BY: [facility]rAt[facility] [id number] (21181) AND (64574) Alb/Creat Ratio 225.5 {mg/g_creat} (Abnormal) Range: 0.0-30.0 Albumin, Urine 112.5 ug/mL (Normal) Creatinine, Urine 49.9 mg/dL (Normal) :33 URINALYSIS (66760) Comments: PATIENT WAS FASTINGPERFORMED BY: [facility]rAt[facility] [id number] Microscopic Examination See below: (Normal) Comments: Microscopic was indicated and was performed. Nitrite, Urine Negative (Normal) Urobilinogen,Semi-Qn 0.2 mg/dL (Normal) Range: 0.2-1.0 Bilirubin Negative (Normal) Occult Blood Negative (Normal) Ketones Negative (Normal) Glucose Negative (Normal) Protein Trace (Normal) WBC Esterase 2+ (Abnormal) Appearance Clear (Normal) Urine-Color Yellow (Normal) pH 6.5 (Normal) Range: 5.0-7.5 Specific [place] 1.014 (Normal) Range: 1.005-1.030 :33 TSH (88139) Comments: PATIENT WAS FASTINGPERFORMED BY: [facility]rAt[facility] [id number] TSH 3.870 {uIU/mL} (Normal) Range: 0.450-4.500 35-Wux-317157:33 Microscopic Examination Comments: PATIENT WAS FASTINGPERFORMED BY: [facility]rAt[facility] [id number] Bacteria Few (Normal) Mucus Threads Present (Normal) Cast Type Hyaline casts (Normal) Casts Present {/lpf} (Abnormal) Epithelial Cells (non renal) >10 {/hpf} (Abnormal) Range: 0 - 10 RBC 0-2 {/hpf} (Normal) Range: 0 - 2 WBC 11-30 {/hpf} (Abnormal) Range: 0 - 5 :57 HgA1C , Office (69911) Comments: 6.6 HgA1C , Office 6.6 % (Normal) Range: 4.6 - 7.1 :57 Blood Glucose , Office (74992) Blood Glucose , Office 211 (Normal) :53 HEPATIC FUNCTION PANEL Comments: PATIENT NOT FASTINGPERFORMED BY: [facility]rAt[facility] [id number] (15264) ALT (SGPT) 13 [iU]/L (Normal) Range: 0-32 AST (SGOT) 17 [iU]/L (Normal) Range: 0-40 Alkaline Phosphatase, S 89 [iU]/L (Normal) Range: 39-117 Bilirubin, Direct 0.08 mg/dL (Normal) Range: 0.00-0.40 Bilirubin, Total <0.2 mg/dL (Normal) Range: 0.0-1.2 Albumin, Serum 4.2 g/dL (Normal) Range: 3.6-4.8 Protein, Total, Serum 6.8 g/dL (Normal) Range: 6.0-8.5 :53 ELJXP-ZJLVJEZFBZJ-AXMZP (30338) Comments: PATIENT NOT FASTINGPERFORMED BY: BonaYou70 MobileWeaverAtrium Health [facility]ly [id number] AFP, Serum, Tumor Marker 2.6 ng/mL (Normal) Range: 0.0-8.3 Comments: Rosmery ECLIA methodology :53 ALKALINE PHOSPHATASE-ISOENZYM Comments: PATIENT NOT FASTINGPERFORMED BY: [facility]rAt[facility] [id number] (87299) Intestinal Frac.: 5 % (Normal) Range: 0-18 Bone Fraction: 24 % (Normal) Range: 14-68 Liver Fraction: 71 % (Normal) Range: 18-85 63-Pet-576233:11 ALKALINE PHOSPHATASE-ISOENZYM Comments: PATIENT NOT FASTINGPERFORMED BY: NEY [facility] Lfndkt2454 [address] RoadDublin [place] [id number] (34161) Intestinal Frac.: 3 % (Normal) Range: 0-18 Bone Fraction: 19 % (Normal) Range: 14-68 Liver Fraction: 78 % (Normal) Range: 18-85 Alkaline Phosphatase, S 122 [iU]/L (Abnormal) Range: 39-117 76-Vji-548990:11 CALCIFEDIOL (21822) Comments: PATIENT NOT FASTINGPERFORMED BY: [facility] Ycyska4833 [address] RoadDublin [place] [id number] Vitamin D, 25-Hydroxy 37.5 ng/mL (Normal) Range: 30.0-100.0 Comments: Vitamin D deficiency has been defined by the [place] of[place]icine and an Endocrine Society practice guideline as alevel of serum 25-OH vitamin D less than 20 ng/mL (1,2).The Endocrine Society went on to further define vitamin Dinsufficiency as a level between 21 and 29 ng/mL (2).1. IOM ([place] of [place]). 2010. Dietary reference intakes for calcium and D. [place]: The National Academies Press.2. Jacinto MF, Eddy NC, Anay-Gonzalo JAVED, et al. Evaluation, treatment, and prevention of vitamin D deficiency: an Endocrine Society clinical practice guideline. JCEM. 2010; 96(7):1911-30. 47-Jlg-277602:11 TSH (05805) Comments: PATIENT NOT FASTINGPERFORMED BY: [facility] Nqobfd1860 [address] RoadDublin [place] [id number] TSH 1.620 {uIU/mL} (Normal) Range: 0.450-4.500 68-Hyy-638880:11 T4, FREE (THYROXINE) (39236) Comments: PATIENT NOT FASTINGPERFORMED BY: [facility] Jikjlm3021 [address] RoadDublin [place] [id number] T4,Free(Direct) 1.00 ng/dL (Normal) Range: 0.82-1.77 10-Yey-091449:11 T3, FREE (TRIDOTHYRONINE) (22354) Comments: PATIENT NOT FASTINGPERFORMED BY: [facility] Yaoxqt2068 [facility] [id number] Triiodothyronine,Free,Serum 2.5 pg/mL (Normal) Range: 2.0-4.4 :08 HgA1C , Office (66052) HgA1C , Office 7.4 % (Abnormal) Range: 4.6 - 7.1 :08 Blood Glucose , Office (12721) Blood Glucose , Office 190 (Normal) :30 Lipid Profile Comments: Order Date: 12/12/16Order Info: [id number] - *Hepatic Function PanelOrder Info: [id number] - *Lipid Profile CC PCPComments: 12 hours fasting, may have water.Comments: 6 months / [facility] [address]rqzwtqcvh[address] [facility] [address] [place], [place], [address] VLDL 46 mg/dL (Abnormal) Range: 5-40 LDL 39 mg/dL (Normal) Range: 0-130 HDL 59 mg/dL (Normal) Comments: The drugs N-Acetylcysteine and Metamizole may falselydepress this assay. Reference Range HDL <40 mg/dL Low HDL Cholesterol HDL >or= 60 mg/dL High HDL Cholesterol TRIG 230 mg/dL (Abnormal) Comments: The drugs N-Acetylcysteine and Metamizole may falselydepress this assay.Serum Triglycerides Reference Interval Normal <150 mg/dL Borderline high 150 - 199 mg/dL High 200 - 499 mg/dL Very High > or = 500 mg/dL CHOL 144 mg/dL (Normal) Comments: <200 mg/dL Desirable 200-240 mg/dL Borderline >240 mg/dL High Risk :30 Liver Profile Comments: Order Date: 12/12/16Order Info: [id number] - *Hepatic Function PanelOrder Info: [id number] - *Lipid Profile CC PCPComments: 12 hours fasting, may have water.Comments: 6 months / [facility]WF[facility] [address]wncvo[address] [place], [place], [id number] D BILI 0.11 mg/dL (Normal) Range: 0.00-0.30 T BILI 0.40 mg/dL (Normal) Range: 0.20-1.00 ALT 19 U/L (Normal) Range: 12-78 ALK P 132 U/L (Abnormal) Range: 45-117 AST 15 U/L (Normal) Range: 15-37 GLOB 4.3 g/dL (Abnormal) Range: 2.3-3.5 ALB 3.5 g/dL (Normal) Range: 3.4-5.0 T PROT 7.8 g/dL (Normal) Range: 6.4-8.2 0-Saj-347022:55 TSH (THYROID STIMULATING Comments: Week of Apr 09; PATIENT NOT FASTINGPERFORMED BY: [facility]rAt[facility] [id number] HORMONE) (79177) TSH 0.728 {uIU/mL} (Normal) Range: 0.450-4.500 :55 HgA1C , Office (27840) HgA1C , Office 6.9 % (Normal) Range: 4.6 - 7.1 :55 Blood Glucose , Office (43677) Blood Glucose , Office 143 (Normal) 22-Fix-274413:11 Microscopic Examination Comments: PATIENT WAS FASTINGPERFORMED BY: [facility] [id number] Bacteria Few (Normal) Mucus Threads Present (Normal) Cast Type Hyaline casts (Normal) Casts Present {/lpf} (Abnormal) Epithelial Cells (non renal) 0-10 {/hpf} (Normal) Range: 0 - 10 RBC 0-2 {/hpf} (Normal) Range: 0 - 2 WBC 6-10 {/hpf} (Abnormal) Range: 0 - 5 44-Tpu-243619:11 URINALYSIS, W/ MICRO (02720) Comments: January 2017; PATIENT WAS FASTINGPERFORMED BY: [facility] [id number] Microscopic Examination See below: (Normal) Comments: Microscopic was indicated and was performed. Nitrite, Urine Negative (Normal) Urobilinogen,Semi-Qn 0.2 mg/dL (Normal) Range: 0.2-1.0 Bilirubin Negative (Normal) Occult Blood Negative (Normal) Ketones Negative (Normal) Glucose Trace (Abnormal) Protein 1+ (Abnormal) WBC Esterase 1+ (Abnormal) Appearance Clear (Normal) Urine-Color Yellow (Normal) pH 6.5 (Normal) Range: 5.0-7.5 Specific [place] 1.016 (Normal) Range: 1.005-1.030 67-Jnt-863733:11 MICROALBUMIN: CREATININE RATIO Comments: January 2017; PATIENT WAS FASTINGPERFORMED BY: [employer] Cudbyq[address] [facility] HospitalHashTipAtrium Health [facility] [id number] (68763) AND (34410) Microalb/Creat Ratio 208.2 {mg/g_creat} (Abnormal) Range: 0.0-30.0 Microalbumin, Urine 182.2 ug/mL (Normal) Creatinine, Urine 87.5 mg/dL (Normal) 68-Wqs-446143:11 CBC, Platelets & Auto Diff Comments: January 2017; PATIENT WAS FASTINGPERFORMED BY: LEAPIN Digital Keys Vgslbp5292 MobileWeaverAtrium Health [facility] [id number] (49036) Immature Grans (Abs) 0.0 {x10E3/uL} (Normal) Range: 0.0-0.1 Immature Granulocytes 0 % (Normal) Baso (Absolute) 0.0 {x10E3/uL} (Normal) Range: 0.0-0.2 Eos (Absolute) 0.2 {x10E3/uL} (Normal) Range: 0.0-0.4 Monocytes(Absolute) 0.3 {x10E3/uL} (Normal) Range: 0.1-0.9 Lymphs (Absolute) 2.9 {x10E3/uL} (Normal) Range: 0.7-3.1 Neutrophils (Absolute) 2.1 {x10E3/uL} (Normal) Range: 1.4-7.0 Basos 1 % (Normal) Eos 3 % (Normal) Monocytes 6 % (Normal) Lymphs 52 % (Normal) Neutrophils 38 % (Normal) Platelets 238 {x10E3/uL} (Normal) Range: 150-379 RDW 13.0 % (Normal) Range: 12.3-15.4 MCHC 33.3 g/dL (Normal) Range: 31.5-35.7 MCH 30.1 pg (Normal) Range: 26.6-33.0 MCV 90 fL (Normal) Range: 79-97 Hematocrit 37.8 % (Normal) Range: 34.0-46.6 Hemoglobin 12.6 g/dL (Normal) Range: 11.1-15.9 RBC 4.18 {x10E6/uL} (Normal) Range: 3.77-5.28 WBC 5.6 {x10E3/uL} (Normal) Range: 3.4-10.8 05-Myf-383144:11 Metabolic Panel, Comprehensive Comments: January 2017; PATIENT WAS FASTINGPERFORMED BY: LabCoSaint [facility]'s Hospital at DenvilleKfjtdo9439 [facility] [id number] (85485) ALT (SGPT) 13 [iU]/L (Normal) Range: 0-32 AST (SGOT) 20 [iU]/L (Normal) Range: 0-40 Alkaline Phosphatase, S 111 [iU]/L (Normal) Range: 39-117 Bilirubin, Total 0.2 mg/dL (Normal) Range: 0.0-1.2 A/G Ratio 1.6 (Normal) Range: 1.2-2.2 Globulin, Total 2.6 g/dL (Normal) Range: 1.5-4.5 Albumin, Serum 4.2 g/dL (Normal) Range: 3.6-4.8 Protein, Total, Serum 6.8 g/dL (Normal) Range: 6.0-8.5 Calcium, Serum 9.6 mg/dL (Normal) Range: 8.7-10.3 Carbon Dioxide, Total 25 mmol/L (Normal) Range: 18-29 Chloride, Serum 97 mmol/L (Normal) Range: 96-106 Potassium, Serum 4.4 mmol/L (Normal) Range: 3.5-5.2 Sodium, Serum 141 mmol/L (Normal) Range: 134-144 BUN/Creatinine Ratio 12 (Normal) Range: 12-28 eGFR If Africn Am 57 mL/min/1.73 (Abnormal) eGFR If NonAfricn Am 49 mL/min/1.73 (Abnormal) Creatinine, Serum 1.17 mg/dL (Abnormal) Range: 0.57-1.00 BUN 14 mg/dL (Normal) Range: 8-27 Glucose, Serum 120 mg/dL (Abnormal) Range: 65-99 79-Nma-258453:11 TSH (THYROID STIMULATING Comments: January 2017; PATIENT WAS FASTINGPERFORMED BY: [facility] Hukion1350 [facility] [id number] HORMONE) (42044) TSH 0.982 {uIU/mL} (Normal) Range: 0.450-4.500 8-Kvv-089122:02 Lipid Profile Comments: Order Date: 12/04/16Order Info: [id number] - *Hepatic Function PanelOrder Date: 12/04/16Order Info: [id number] - *Lipid Profile CC PCPComments: 12 hours fasting, may have water.[place] [address] [place], [place], [address] VLDL 36 mg/dL (Normal) Range: 5-40 LDL 42 mg/dL (Normal) Range: 0-130 HDL 66 mg/dL (Normal) Comments: The drugs N-Acetylcysteine and Metamizole may falsely deressthis assay. Reference Range HDL <40 mg/dL Low HDL Cholesterol HDL >or= 60 mg/dL High HDL Cholesterol TRIG 178 mg/dL (Normal) Comments: The drugs N-Acetylcysteine and Metamizole may falsely deressthis assay.Serum Triglycerides Reference Interval Normal <150 mg/dL Borderline high 150 - 199 mg/dL High 200 - 499 mg/dL Very High > or = 500 mg/dL CHOL 144 mg/dL (Normal) Comments: <200 mg/dL Desirable 200-240 mg/dL Borderline >240 mg/dL High Risk 2-Klv-641956:02 Liver Profile Comments: Order Date: 12/04/16Order Info: [id number] - *Hepatic Function PanelOrder Date: 12/04/16Order Info: [id number] - *Lipid Profile CC PCPComments: 12 hours fasting, may have water.[place] [address] [place], [place], [id number] D BILI 0.07 mg/dL (Normal) Range: 0.00-0.30 T BILI 0.30 mg/dL (Normal) Range: 0.20-1.00 ALT 21 U/L (Normal) Range: 12-78 ALK P 112 U/L (Normal) Range: 45-117 AST 19 U/L (Normal) Range: 15-37 GLOB 3.8 g/dL (Abnormal) Range: 2.3-3.5 ALB 3.4 g/dL (Normal) Range: 3.4-5.0 T PROT 7.2 g/dL (Normal) Range: 6.4-8.2 91-Ufj-066243:29 URINE RANDELL CULTURE-ZEINAB COL Comments: PATIENT NOT FASTINGPERFORMED BY: LEAPIN Digital KeysUNM Cancer CenterFqlynr5148 [facility] [id number] Information: SRC:UC COUNT (09164) Result 1 MUG (Normal) Comments: Mixed urogenital flora25,000-50,000 colony forming units per mL Urine Final report (Normal) Culture,Comprehensive 20-Ork-941766:53 Urinalysis, Office (40333) UA - LEUKOCYTE ESTERASE Small (Normal) UA - NITRITE Negative (Normal) URINE UROBILINGN ZEINAB TIMED Normal mg/dL (Normal) UA - PROTEIN Negative mg/dL (Normal) UA - PH 7 (Normal) UA - BLOOD Negative (Normal) UA - SPECIFIC GRAVITY 1.020 (Normal) UA - KETONES Negative mg/dL (Normal) UA - BILIRUBIN Small (Normal) UA - GLUCOSE Negative (Normal) 22-Veu-028269:51 Blood Glucose , Office (29825) Comments: 169 Blood Glucose , Office 169 (Normal) :52 HgA1C , Office (76904) Comments: 7.0 HgA1C , Office 7.0 % (Normal) Range: 4.6 - 7.1 :22 URINE RANDELL CULTURE-IDENTIFICATN Comments: PATIENT NOT FASTINGPERFORMED BY: LabSturgis Hospital6370 [facility] [id number] Information: SRC:UC (53958) Result 1 MUG (Normal) Comments: Mixed urogenital flora10,000-25,000 colony forming units per mL Urine Final report (Normal) Culture,Comprehensive 80-Qou-628816:05 Urinalysis, Office (17939) UA - LEUKOCYTE ESTERASE Negative (Normal) UA - NITRITE Negative (Normal) URINE UROBILINGN ZEINAB TIMED Normal mg/dL (Normal) UA - PROTEIN 30 mg/dL (Normal) UA - PH 6 (Abnormal) UA - BLOOD non-hemolyzed trace (Normal) UA - SPECIFIC GRAVITY 1.020 (Normal) UA - KETONES Negative mg/dL (Normal) UA - BILIRUBIN Negative (Normal) UA - GLUCOSE 100 (Abnormal) :42 HgA1C , Office (18697) HgA1C , Office 6.2 % (Normal) Range: 4.6 - 7.1 :42 Blood Glucose , Office (97589) Blood Glucose , Office 137 (Normal) :01 TSH (THYROID STIMULATING Comments: PATIENT NOT FASTINGPERFORMED BY: LEAPIN Digital Keys Cleverbug [facility] [id number] HORMONE) (82845) TSH 1.820 {uIU/mL} (Normal) Range: 0.450-4.500 :03 HEPATIC FUNCTION PANEL Comments: PATIENT NOT FASTINGPERFORMED BY: [employer] Cleverbug [facility] [id number] (53885) ALT (SGPT) 15 [iU]/L (Normal) Range: 0-32 AST (SGOT) 23 [iU]/L (Normal) Range: 0-40 Alkaline Phosphatase, S 95 [iU]/L (Normal) Range: 39-117 Bilirubin, Direct 0.12 mg/dL (Normal) Range: 0.00-0.40 Bilirubin, Total 0.3 mg/dL (Normal) Range: 0.0-1.2 Albumin, Serum 4.3 g/dL (Normal) Range: 3.6-4.8 Protein, Total, Serum 7.3 g/dL (Normal) Range: 6.0-8.5 :03 CPSDM-SJCQXRQDWUI-VJUUX (18907) Comments: PATIENT NOT FASTINGPERFORMED BY: [employer] Xwtxjx4915 [facility] [id number] AFP, Serum, Tumor Marker 2.8 ng/mL (Normal) Range: 0.0-8.3 Comments: Rosmery ECLIA methodology :03 HEPATITIS PANEL (71692) Comments: PATIENT NOT FASTINGPERFORMED BY: LEAPIN Digital Keys Cleverbug [facility] [id number] Hep C Virus Ab <0.1 {s/co_ratio} (Normal) Range: 0.0-0.9 Comments: Negative: < 0.8 Indeterminate: 0.8 - 0.9 Positive: > 0.9 . The CDC recommends that a positive HCV antibody result be followed up with a HCV Nucleic Acid Amplification test (436720). Hep B Core Ab, IgM Negative (Normal) HBsAg Screen Negative (Normal) Hep A Ab, IgM Negative (Normal) :58 CBC W/Diff, Automated Comments: CBCD FOR DR CHATMANNash[facility] Center[facility] Ckopgfbsce[address] [place], [address] Absolute Lymph 1.84 {X10_3/ul} (Normal) Range: 0.83-4.51 Absolute Neut 1.3 {X10_3/uL} (Abnormal) Range: 2.0-7.7 IM GRAN % 0.000 % (Normal) Range: 0.0-0.9 Comments: IG% - Immature Granulocytes (promyelocytes, myelocytes andmetamyelocytes) > 1% indicates that a LEFT SHIFT is Present. BASO% 0.8 % (Normal) Range: 0-1 EO% 3.6 % (Normal) Range: 0-5 MONO% 8.4 % (Normal) Range: 0-10 LY% 51.4 % (Abnormal) Range: 19-41 NEUT% 35.8 % (Abnormal) Range: 47-70 MPV 10.1 fL (Normal) Range: 6.2-12.0 PLT 215 K/mm3 (Normal) Range: 150-450 RDW SD 40.8 fL (Normal) Range: 35.1-43.9 RDW CV 12.0 % (Normal) Range: 11.6-14.6 MCHC 33.5 {g/gl} (Normal) Range: 32-36 MCH 31.8 pg (Normal) Range: 27.0-32.0 MCV 94.9 fL (Normal) Range: 81-99 HCT 42.4 % (Normal) Range: 37-47 HGB 14.2 g/dL (Normal) Range: 12.0-15.0 RBC 4.47 {M/mm3} (Normal) Range: 4.2-5.4 WBC 3.6 K/mm3 (Abnormal) Range: 4.4-11.0 :58 T4 Total, Thyroxin Comments: Order Date: 05/14/16Interface Comments: Reason:Order Date: 05/14/16[facility] [id number] [place], [id number] T4 THYROXIN 11.6 ug/dL (Normal) Range: 4.8-13.9 :58 Thyroid Stim Hormone (TSH) Comments: Order Date: 05/14/16Interface Comments: Reason:Order Date: 05/14/16[facility] [id number] [place], [id number] TSH 1.96 {uIU/mL} (Normal) Range: 0.358-3.74 :11 Urinalysis, Office ([id number]) UA - LEUKOCYTE ESTERASE Small (Normal) UA - NITRITE Negative (Normal) URINE UROBILINGN ZEINAB TIMED Normal mg/dL (Normal) UA - PROTEIN 30 mg/dL (Normal) UA - PH 6 (Abnormal) UA - BLOOD Negative (Normal) UA - SPECIFIC GRAVITY 1.010 (Normal) UA - KETONES Negative mg/dL (Normal) UA - BILIRUBIN Negative (Normal) UA - GLUCOSE Negative (Normal) :50 Basic Metabolic Profile (BMP) Comments: [facility] [id number] [place], [id number] GAP 7 (Normal) Range: 5-15 CO2 33.0 mmol/L (Abnormal) Range: 21.0-32.0 CL 98 mmol/L (Normal) Range: 98-107 K 4.3 mmol/L (Normal) Range: 3.5-5.1 NA 138 mmol/L (Normal) Range: 136-145 CA 9.4 mg/dL (Normal) Range: 8.5-10.1 BUN/CRE 10.2 {RATIO} (Normal) Range: 10-20 EST GFR - AA 54 mL/min (Abnormal) Comments: GFR Calc EST GFR 45 mL/min (Abnormal) Comments: Non- GFR Calc CREAT,SERUM 1.28 mg/dL (Abnormal) Range: 0.55-1.20 Comments: The validity of the calculated GFR AND GFRAA in patients over70 years has not been determined. Clinical correlation isessential. BUN 13 mg/dL (Normal) Range: 7-18 GLU 100 mg/dL (Normal) Range: 70-110 :48 MAGNESIUM ([id number]) Comments: PATIENT NOT FASTINGPERFORMED BY: [id number] [facility] [id number] Magnesium, Serum 1.6 mg/dL (Normal) Range: 1.6-2.3 :48 TSH (THYROID STIMULATING Comments: PATIENT NOT FASTINGPERFORMED BY: [facility] [id number] [facility] [id number] HORMONE) ([id number]) TSH 6.340 {uIU/mL} (Abnormal) Range: 0.450-4.500 :48 URIC ACID BLOOD ([id number]) Comments: PATIENT NOT FASTINGPERFORMED BY: LabCoUNM Cancer CenterZjwelt5577 [facility] [id number] Uric Acid, Serum 6.1 mg/dL (Normal) Range: 2.5-7.1 Comments: Therapeutic target for gout patients: <6.0 :09 Blood Glucose , Office (49124) Blood Glucose , Office 116 (Normal) :09 HgA1C , Office (27055) HgA1C , Office 6.7 % (Normal) Range: 4.6 - 7.1 :19 Basic Metabolic Profile (BMP) Comments: Order Date: 03/12/16OV Order #: [id number] [address] [place], [address] GAP 7 (Normal) Range: 5-15 CO2 29.0 mmol/L (Normal) Range: 21.0-32.0 CL 102 mmol/L (Normal) Range: 98-107 K 4.2 mmol/L (Normal) Range: 3.5-5.1 NA 138 mmol/L (Normal) Range: 136-145 CA 10.1 mg/dL (Normal) Range: 8.5-10.1 BUN/CRE 9.0 {RATIO} (Abnormal) Range: 10-20 EST GFR - AA 47 mL/min (Abnormal) Comments: GFR Calc EST GFR 39 mL/min (Abnormal) Comments: Non- GFR Calc CREAT,SERUM 1.44 mg/dL (Abnormal) Range: 0.55-1.20 Comments: The validity of the calculated GFR AND GFRAA in patients over70 years has not been determined. Clinical correlation isessential. BUN 13 mg/dL (Normal) Range: 7-18 GLU 107 mg/dL (Normal) Range: 70-110 82-Fza-786332:19 T4 Total, Thyroxin Comments: Order Date: 03/12/16 Order #: [id number] [address]cqrm[address] [place], [place], [address] T4 THYROXIN 9.4 ug/dL (Normal) Range: 4.8-13.9 :19 Thyroid Stim Hormone (TSH) Comments: Order Date: 03/12/16 Order #: [id number]-Pat[facility] Center [address]rjxb[address] [place], [place], [address] TSH 5.44 {uIU/mL} (Abnormal) Range: 0.358-3.74 :49 Aerobic Bacterial Culture Comments: PATIENT NOT FASTINGPERFORMED BY: [facility] Ffvoln4046 [facility] [id number] Information: RT AXILLA Result 1 MRSA (Abnormal) Comments: Methicillin - resistant Staphylococcus aureusModerate growthBased on resistance to oxacillin this isolate would be resistant toall currently available beta-lactam antimicrobial agents, with theexception of the newer cephalosporins with anti-MRSA activity, such asCeftaroline S = Susceptible; I = Intermediate; R = Resistant P = Positive; N = Negative MICS are expr essed in micrograms per mL Antibiotic RSLT#1 RSLT#2 RSLT#3 RSLT#4Ciprofloxacin SClindamycin SErythromycin SGentamicin SLevofloxacin SLinezolid SOxacillin RPenicillin RRifampin STetracycline STrimethoprim/Sulfa SVancomycin S Aerobic Bacterial Final report Culture (Abnormal) MRSA Screening Negative (Normal) Comments: PATIENT NOT FASTINGPERFORMED BY: [facility] Sjqdou3827 [place] [id number] Information: NASAL 5:49 Culture [id number] Basic Metabolic Profile (BMP) Comments: [facility] [address] [place], [place], [id number] GAP 7 (Normal) Range: 5-15 CO2 29.0 mmol/L (Normal) Range: 21.0-32.0 CL 99 mmol/L (Normal) Range: 98-107 K 3.9 mmol/L (Normal) Range: 3.5-5.1 NA 135 mmol/L (Abnormal) Range: 136-145 CA 9.3 mg/dL (Normal) Range: 8.5-10.1 BUN/CRE 17.8 {RATIO} (Normal) Range: 10-20 EST GFR - AA 51 mL/min (Abnormal) Comments: GFR Calc EST GFR 42 mL/min (Abnormal) Comments: Non- GFR Calc CREAT,SERUM 1.35 mg/dL (Abnormal) Range: 0.55-1.20 Comments: The validity of the calculated GFR AND GFRAA in patients over70 years has not been determined. Clinical correlation isessential. BUN 24 mg/dL (Abnormal) Range: 7-18 GLU 145 mg/dL (Abnormal) Range: 70-110 Comments: Fasting Glucose result greater than or equal to 126 mg/dLsuggests DIABETES MELLITUS per A.D.A. criteria. :02 Blood Glucose , Office (38795) Blood Glucose , Office 137 (Normal) :54 Urine Drug Screen (Office - WNL (Normal) Comments: pos for oxy, all else neg Urine Drug Screen 6 Panel) Comments: All negative except Oxy (95266) :52 HgA1C , Office (25058) Comments: 7.3 HgA1C , Office 7.3 % (Abnormal) Range: 4.6 - 7.1 [id number]-Tjf-[id number]:43 Basic Metabolic Profile (BMP) Comments: DR URBINA ORDERED BMPDR MALCOLM ORDERED LIVER LIPIDWTwin City Hospital S[address]vsmksup[address] [place], [address] GAP 3 (Abnormal) Range: 5-15 CO2 33.0 mmol/L (Abnormal) Range: 21.0-32.0 CL 102 mmol/L (Normal) Range: 98-107 K 3.4 mmol/L (Abnormal) Range: 3.5-5.1 Comments: ADDENDA: Denisse at [facility] aware of potassium level NA 138 mmol/L (Normal) Range: 136-145 CA 8.6 mg/dL (Normal) Range: 8.5-10.1 BUN/CRE 12.8 {RATIO} (Normal) Range: 10-20 EST GFR - AA 60 mL/min (Normal) Comments: GFR Calc EST GFR 49 mL/min (Abnormal) Comments: Non- GFR Calc CREAT,SERUM 1.17 mg/dL (Normal) Range: 0.55-1.20 Comments: The validity of the calculated GFR AND GFRAA in patients over70 years has not been determined. Clinical correlation isessential. BUN 15 mg/dL (Normal) Range: 7-18 GLU 101 mg/dL (Normal) Range: 70-110 8-Bpl-[id number]:43 Lipid Profile Comments: DR URBINA ORDERED BMPDR MOODISPAW ORDERED LIVER LIPIDWright-Patterson Medical Center Bdudadacpd07[address] [place], [address] VLDL 26 mg/dL (Normal) Range: 5-40 LDL 66 mg/dL (Normal) Range: 0-130 HDL 58 mg/dL (Normal) Comments: Reference Range HDL <40 mg/dL Low HDL Cholesterol HDL >or= 60 mg/dL High HDL Cholesterol TRIG 132 mg/dL (Normal) Comments: Serum Triglycerides Reference Interval Normal <150 mg/dL Borderline high 150 - 199 mg/dL High 200 - 499 mg/dL Very High > or = 500 mg/dL CHOL 150 mg/dL (Normal) Comments: <200 mg/dL Desirable 200-240 mg/dL Borderline >240 mg/dL High Risk [id number]-[id number]:43 Liver Profile Comments: DR URBINA ORDERED BMPDR MOODISPAW ORDERED LIVER LIPIDWright-Patterson Medical Center Spmaplzztk[address] [place], [address] D BILI 0.14 mg/dL (Normal) Range: 0.00-0.30 T BILI 0.40 mg/dL (Normal) Range: 0.20-1.00 ALT 16 U/L (Normal) Range: 12-78 ALK P 112 U/L (Normal) Range: 50-136 AST 19 U/L (Normal) Range: 15-37 GLOB 3.9 g/dL (Abnormal) Range: 2.3-3.5 ALB 3.0 g/dL (Abnormal) Range: 3.4-5.0 T PROT 6.9 g/dL (Normal) Range: 6.4-8.2 :02 Blood Glucose , Office (07941) Blood Glucose , Office 160 (Normal) :37 HgA1C , Office (06224) Comments: 7.2 HgA1C , Office 7.2 % (Abnormal) Range: 4.6 - 7.1 :24 MRSA Culture (40053) Comments: [facility] [address] [place], [place], [address] MRSA RESULT Negative (Normal) :59 Metabolic Panel, Basic Comments: send to Dr.Masroor Urbina; PATIENT NOT FASTINGPERFORMED BY: LabCoSaint [facility]'s Hospital at DenvilleSqldjc6993 [facility] [id number] Information: [id number] (30410) Calcium, Serum 10.7 mg/dL (Abnormal) Range: 8.7-10.3 Carbon Dioxide, Total 28 mmol/L (Normal) Range: 18-29 Chloride, Serum 96 mmol/L (Abnormal) Range: 97-108 Potassium, Serum 4.1 mmol/L (Normal) Range: 3.5-5.2 Sodium, Serum 141 mmol/L (Normal) Range: 134-144 BUN/Creatinine Ratio 16 (Normal) Range: 11-26 eGFR If Africn Am 53 mL/min/1.73 (Abnormal) eGFR If NonAfricn Am 46 mL/min/1.73 (Abnormal) Creatinine, Serum 1.25 mg/dL (Abnormal) Range: 0.57-1.00 BUN 20 mg/dL (Normal) Range: 8-27 Glucose, Serum 182 mg/dL (Abnormal) Range: 65-99 3-Xsb-016035:09 MRSA Culture (34885) Comments: [facility] [address] [place], [address] MRSA RESULT POSITIVE (Abnormal) :39 Lipid Profile Comments: [facility] [address] [place], [id number] VLDL 23 mg/dL (Normal) Range: 5-40 LDL 123 mg/dL (Normal) Range: 0-130 HDL 71 mg/dL (Normal) Comments: Reference Range HDL <40 mg/dL Low HDL Cholesterol HDL >or= 60 mg/dL High HDL Cholesterol TRIG 117 mg/dL (Normal) Comments: Serum Triglycerides Reference Interval Normal <150 mg/dL Borderline high 150 - 199 mg/dL High 200 - 499 mg/dL Very High > or = 500 mg/dL CHOL 217 mg/dL (Abnormal) Comments: <200 mg/dL Desirable 200-240 mg/dL Borderline >240 mg/dL High Risk :39 Liver Profile Comments: [facility] [address] [place], [address] ; non-emergent and handled by cardio D BILI 0.14 mg/dL (Normal) Range: 0.00-0.30 T BILI 0.50 mg/dL (Normal) Range: 0.20-1.00 ALT 38 U/L (Normal) Range: 12-78 ALK P 79 U/L (Normal) Range: 50-136 AST 47 U/L (Abnormal) Range: 15-37 GLOB 4.3 g/dL (Abnormal) Range: 2.3-3.5 ALB 3.5 g/dL (Normal) Range: 3.4-5.0 T PROT 7.8 g/dL (Normal) Range: 6.4-8.2 :39 T4 Total, Thyroxin Comments: [place] [address] [place], [address] T4 THYROXIN 10.9 ug/dL (Normal) Range: 4.8-13.9 :39 Thyroid Stim Hormone (TSH) Comments: [facility] [address] [place], [address] TSH 3.63 {uIU/mL} (Normal) Range: 0.358-3.74 8-Oow-[id number]:13 LIPID PANEL (04847) Comments: PATIENT WAS FASTINGPERFORMED BY: [facility]6370 [facility] [id number] LDL/HDL Ratio 1.2 {ratio_units} (Normal) Range: 0.0-3.2 Comments: LDL/HDL Ratio Men Women 1/2 Avg.Risk 1.0 1.5 Av g.Risk 3.6 3.2 2X Avg.Risk 6.2 5.0 3X Avg.Risk 8.0 6.1 LDL Cholesterol Calc 73 mg/dL (Normal) Range: 0-99 VLDL Cholesterol Kiesha 27 mg/dL (Normal) Range: 5-40 HDL Cholesterol 60 mg/dL (Normal) Comments: According to ATP-III Guidelines, HDL-C >59 mg/dL is considered anegative risk factor for CHD. Triglycerides 133 mg/dL (Normal) Range: 0-149 Cholesterol, Total 160 mg/dL (Normal) Range: 100-199 0-Qnq-531977:13 CBC W/AUTO DIFF WBC Comments: PATIENT WAS FASTINGPERFORMED BY: [facility]6370 [facility] [id number] Information: [id number] (05883) Immature Grans (Abs) 0.0 {x10E3/uL} (Normal) Range: 0.0-0.1 Immature Granulocytes 0 % (Normal) Baso (Absolute) 0.0 {x10E3/uL} (Normal) Range: 0.0-0.2 Eos (Absolute) 0.1 {x10E3/uL} (Normal) Range: 0.0-0.4 Monocytes(Absolute) 0.4 {x10E3/uL} (Normal) Range: 0.1-0.9 Lymphs (Absolute) 1.6 {x10E3/uL} (Normal) Range: 0.7-3.1 Neutrophils (Absolute) 2.4 {x10E3/uL} (Normal) Range: 1.4-7.0 Basos 0 % (Normal) Eos 3 % (Normal) Monocytes 10 % (Normal) Lymphs 35 % (Normal) Neutrophils 52 % (Normal) Platelets 250 {x10E3/uL} (Normal) Range: 150-379 RDW 13.4 % (Normal) Range: 12.3-15.4 MCHC 32.6 g/dL (Normal) Range: 31.5-35.7 MCH 29.4 pg (Normal) Range: 26.6-33.0 MCV 90 fL (Normal) Range: 79-97 Hematocrit 36.8 % (Normal) Range: 34.0-46.6 Hemoglobin 12.0 g/dL (Normal) Range: 11.1-15.9 RBC 4.08 {x10E6/uL} (Normal) Range: 3.77-5.28 WBC 4.5 {x10E3/uL} (Normal) Range: 3.4-10.8 0-Mvz-622926:13 METABOLIC PANEL, COMPREHENSIVE Comments: PATIENT WAS FASTINGPERFORMED BY: LabCoSaint Clare's Hospital at DenvilleTraeoo2121 [facility] [id number] (33011) ALT (SGPT) 8 [iU]/L (Normal) Range: 0-32 AST (SGOT) 18 [iU]/L (Normal) Range: 0-40 Alkaline Phosphatase, S 111 [iU]/L (Normal) Range: 39-117 Bilirubin, Total 0.3 mg/dL (Normal) Range: 0.0-1.2 A/G Ratio 1.2 (Normal) Range: 1.1-2.5 Globulin, Total 2.9 g/dL (Normal) Range: 1.5-4.5 Albumin, Serum 3.6 g/dL (Normal) Range: 3.6-4.8 Protein, Total, Serum 6.5 g/dL (Normal) Range: 6.0-8.5 Calcium, Serum 9.3 mg/dL (Normal) Range: 8.7-10.3 Carbon Dioxide, Total 28 mmol/L (Normal) Range: 18-29 Chloride, Serum 95 mmol/L (Abnormal) Range: 97-108 Potassium, Serum 4.0 mmol/L (Normal) Range: 3.5-5.2 Sodium, Serum 141 mmol/L (Normal) Range: 134-144 BUN/Creatinine Ratio 12 (Normal) Range: 11-26 eGFR If Africn Am 59 mL/min/1.73 (Abnormal) eGFR If NonAfricn Am 51 mL/min/1.73 (Abnormal) Creatinine, Serum 1.14 mg/dL (Abnormal) Range: 0.57-1.00 BUN 14 mg/dL (Normal) Range: 8-27 Glucose, Serum 109 mg/dL (Abnormal) Range: 65-99 7-Ltk-403061:15 Basic Metabolic Profile (BMP) Comments: [facility] [address] [place], [place], [id number] GAP 7 (Normal) Range: 5-15 CO2 30.0 mmol/L (Normal) Range: 21.0-32.0 CL 97 mmol/L (Abnormal) Range: 98-107 K 4.1 mmol/L (Normal) Range: 3.5-5.1 NA 134 mmol/L (Abnormal) Range: 136-145 CA 8.7 mg/dL (Normal) Range: 8.5-10.1 BUN/CRE 12.3 {RATIO} (Normal) Range: 10-20 Estimated CRCL 30.30 ml/min (Normal) EST GFR - AA 41 mL/min (Abnormal) Comments: GFR Calc EST GFR 34 mL/min (Abnormal) Comments: Non- GFR Calc CREAT,SERUM 1.62 mg/dL (Abnormal) Range: 0.55-1.20 Comments: The validity of the calculated GFR AND GFRAA in patients over70 years has not been determined. Clinical correlation isessential. BUN 20 mg/dL (Abnormal) Range: 7-18 GLU 356 mg/dL (Abnormal) Range: 70-110 Comments: Glucose result greater than or equal to 200 mg/dLsuggests DIABETES MELLITUS per A.D.A. criteria. 9-Ssa-093976:15 CBC W/Diff, Automated Comments: [facility] [address] [place], [place], [address] Absolute Lymph 0.95 {X10_3/ul} (Normal) Range: 0.83-4.51 Absolute Neut 4.2 {X10_3/uL} (Normal) Range: 2.0-7.7 IM GRAN % 0.400 % (Normal) Range: 0.0-0.9 Comments: IG% - Immature Granulocytes (promyelocytes, myelocytes andmetamyelocytes) > 1% indicates that a LEFT SHIFT is Present. BASO% 0.4 % (Normal) Range: 0-1 EO% 0.6 % (Normal) Range: 0-5 MONO% 3.5 % (Normal) Range: 0-10 LY% 17.7 % (Abnormal) Range: 19-41 NEUT% 77.4 % (Abnormal) Range: 47-70 MPV 9.9 fL (Normal) Range: 6.2-12.0 PLT 246 K/mm3 (Normal) Range: 150-450 RDW SD 48.1 fL (Abnormal) Range: 35.1-43.9 RDW CV 14.2 % (Normal) Range: 11.6-14.6 MCHC 32.1 {g/gl} (Normal) Range: 32-36 MCH 29.9 pg (Normal) Range: 27.0-32.0 MCV 93.1 fL (Normal) Range: 81-99 HCT 39.3 % (Normal) Range: 37-47 HGB 12.6 g/dL (Normal) Range: 12.0-15.0 RBC 4.22 {M/mm3} (Normal) Range: 4.2-5.4 WBC 5.4 K/mm3 (Normal) Range: 4.4-11.0 :31 LIPID PANEL (90044) Comments: PATIENT WAS FASTINGPERFORMED BY: LabCoSaint Clare's Hospital at DenvilleRtuodv8975 [facility] [id number]; non-emergent till apt LDL/HDL Ratio 1.6 {ratio_units} (Normal) Range: 0.0-3.2 Comments: LDL/HDL Ratio Men Women 1/2 Avg.Risk 1.0 1.5 Av g.Risk 3.6 3.2 2X Avg.Risk 6.2 5.0 3X Avg.Risk 8.0 6.1 LDL Cholesterol Calc 115 mg/dL (Abnormal) Range: 0-99 VLDL Cholesterol Kiesha 31 mg/dL (Normal) Range: 5-40 HDL Cholesterol 73 mg/dL (Normal) Comments: According to ATP-III Guidelines, HDL-C >59 mg/dL is considered anegative risk factor for CHD. Triglycerides 154 mg/dL (Abnormal) Range: 0-149 Cholesterol, Total 219 mg/dL (Abnormal) Range: 100-199 91-Tnp-093537:31 CBC with auto diff Comments: PATIENT WAS FASTINGPERFORMED BY: LabCoSaint Clare's Hospital at DenvilleArdtid4554 [facility] [id number] Information: [id number] (75096) Immature Grans (Abs) 0.0 {x10E3/uL} (Normal) Range: 0.0-0.1 Immature Granulocytes 0 % (Normal) Baso (Absolute) 0.0 {x10E3/uL} (Normal) Range: 0.0-0.2 Eos (Absolute) 0.1 {x10E3/uL} (Normal) Range: 0.0-0.4 Monocytes(Absolute) 0.5 {x10E3/uL} (Normal) Range: 0.1-0.9 Lymphs (Absolute) 1.7 {x10E3/uL} (Normal) Range: 0.7-3.1 Neutrophils (Absolute) 2.8 {x10E3/uL} (Normal) Range: 1.4-7.0 Basos 0 % (Normal) Eos 2 % (Normal) Monocytes 9 % (Normal) Lymphs 33 % (Normal) Neutrophils 56 % (Normal) Platelets 241 {x10E3/uL} (Normal) Range: 150-379 RDW 14.6 % (Normal) Range: 12.3-15.4 MCHC 32.8 g/dL (Normal) Range: 31.5-35.7 MCH 28.9 pg (Normal) Range: 26.6-33.0 MCV 88 fL (Normal) Range: 79-97 Hematocrit 37.8 % (Normal) Range: 34.0-46.6 Hemoglobin 12.4 g/dL (Normal) Range: 11.1-15.9 RBC 4.29 {x10E6/uL} (Normal) Range: 3.77-5.28 WBC 5.2 {x10E3/uL} (Normal) Range: 3.4-10.8 :31 MICROALBUMIN: CREATININE RATIO Comments: PATIENT WAS FASTINGPERFORMED BY: LabCoSaint Clare's Hospital at DenvilleCfpmeu5015 [facility] [id number] ([id number]) AND (85712) Microalb/Creat Ratio 93.7 {mg/g_creat} (Abnormal) Range: 0.0-30.0 Microalbumin, Urine 196.4 ug/mL (Abnormal) Range: 0.0-17.0 Creatinine, Urine 209.7 mg/dL (Normal) Range: 15.0-278.0 :31 METABOLIC PANEL, COMPREHENSIVE Comments: PATIENT WAS FASTINGPERFORMED BY: [email or web address] [facility] [id number] (46572) ALT (SGPT) 20 [iU]/L (Normal) Range: 0-32 AST (SGOT) 20 [iU]/L (Normal) Range: 0-40 Alkaline Phosphatase, S 67 [iU]/L (Normal) Range: 39-117 Bilirubin, Total 0.4 mg/dL (Normal) Range: 0.0-1.2 A/G Ratio 1.2 (Normal) Range: 1.1-2.5 Globulin, Total 3.3 g/dL (Normal) Range: 1.5-4.5 Albumin, Serum 4.0 g/dL (Normal) Range: 3.6-4.8 Protein, Total, Serum 7.3 g/dL (Normal) Range: 6.0-8.5 Calcium, Serum 9.8 mg/dL (Normal) Range: 8.7-10.3 Carbon Dioxide, Total 27 mmol/L (Normal) Range: 18-29 Chloride, Serum 97 mmol/L (Normal) Range: 97-108 Potassium, Serum 3.6 mmol/L (Normal) Range: 3.5-5.2 Sodium, Serum 139 mmol/L (Normal) Range: 134-144 BUN/Creatinine Ratio 15 (Normal) Range: 11-26 eGFR If Africn Am 51 mL/min/1.73 (Abnormal) eGFR If NonAfricn Am 44 mL/min/1.73 (Abnormal) Creatinine, Serum 1.28 mg/dL (Abnormal) Range: 0.57-1.00 BUN 19 mg/dL (Normal) Range: 8-27 Glucose, Serum 120 mg/dL (Abnormal) Range: 65-99 82-Rdt-008025:31 Hemoglobin Glyclated (HGB A1C) Comments: PATIENT WAS FASTINGPERFORMED BY: [email or web address] [facility] [id number] ([id number]) Hemoglobin A1c 7.6 % (Abnormal) Range: 4.8-5.6 Comments: . Pre-diabetes: 5.7 - 6.4 Diabetes: >6.4 Glycemic control for adults with diabetes: <7.0 71-Amt-469123:30 Urinalysis, Complete Comments: Order Date: 07/18/15How was Urine Obtained? CLEAN [facility] [address] [place], [place], [id number] MUCUS, URINE 0 SEEN {/hpf} (Normal) BACTERIA 0 SEEN {/hpf} (Normal) SQUAM EPI 0-5 SEEN {/hpf} (Normal) Range: 5-10 RBC-UA 0 SEEN {/hpf} (Normal) Range: 0-5 WBC 10-25 SEEN {/hpf} (Normal) Range: 0-5 LEUK ESTERASE 500 /ul (Abnormal) OCCULT BLOOD-UR 10 /ul (Abnormal) NITRITE UR Negative (Normal) UROBILI 1 mg/dL (Abnormal) PROT DIPSTX 100 mg/dL (Abnormal) pH UR 6.0 (Normal) Range: 5.0 - 8.0 SP.GR. DIPSTX 1.015 (Normal) Range: 1.002-1.030 KETONE UR Negative mg/dL (Normal) BILIRUBIN URINE 1 mg/dL (Abnormal) Comments: COLOR OF URINE MAY AFFECT DIPSTICK RESULTS. GLUCOSE, UR 100 mg/dL (Abnormal) CLARITY Clear (Normal) COLOR Yellow (Normal) 52-Ntc-645850:43 CBC W/Diff, Automated Comments: [facility] [address] [place], [place], [address] PATH REV May foll (Normal) SMEAR COMMENT (Normal) Comments: LYMPHOPENIA NOTED Absolute Lymph 0.40 {X10_3/ul} (Abnormal) Range: 0.83-4.51 Absolute Neut 13.9 {X10_3/uL} (Abnormal) Range: 2.0-7.7 IM GRAN % 0.300 % (Normal) Range: 0.0-0.9 Comments: IG% - Immature Granulocytes (promyelocytes, myelocytes andmetamyelocytes) > 1% indicates that a LEFT SHIFT is Present. BASO% 0.1 % (Normal) Range: 0-1 EO% 0.1 % (Normal) Range: 0-5 MONO% 5.2 % (Normal) Range: 0-10 LY% 2.6 % (Abnormal) Range: 19-41 NEUT% 91.7 % (Abnormal) Range: 47-70 MPV 10.3 fL (Normal) Range: 6.2-12.0 PLT 206 K/mm3 (Normal) Range: 150-450 RDW SD 50.2 fL (Abnormal) Range: 35.1-43.9 RDW CV 14.2 % (Normal) Range: 11.6-14.6 MCHC 31.3 {g/gl} (Abnormal) Range: 32-36 MCH 30.1 pg (Normal) Range: 27.0-32.0 MCV 96.4 fL (Normal) Range: 81-99 HCT 40.3 % (Normal) Range: 37-47 HGB 12.6 g/dL (Normal) Range: 12.0-15.0 RBC 4.18 {M/mm3} (Abnormal) Range: 4.2-5.4 WBC 15.1 K/mm3 (Abnormal) Range: 4.4-11.0 54-Fdh-726351:43 Comprehensive Metabolic Profil Comments: [facility] [address] [place], [place], [id number] GAP 8 (Normal) Range: 5-15 CO2 33.0 mmol/L (Abnormal) Range: 21.0-32.0 CL 94 mmol/L (Abnormal) Range: 98-107 K 3.5 mmol/L (Normal) Range: 3.5-5.1 NA 135 mmol/L (Abnormal) Range: 136-145 T BILI 0.60 mg/dL (Normal) Range: 0.20-1.00 ALT 21 U/L (Normal) Range: 12-78 ALK P 123 U/L (Normal) Range: 50-136 AST 18 U/L (Normal) Range: 15-37 CA 8.9 mg/dL (Normal) Range: 8.5-10.1 A/G 0.7 {RATIO} (Abnormal) Range: 0.9-2.4 GLOB 4.4 g/dL (Abnormal) Range: 2.3-3.5 ALB 3.1 g/dL (Abnormal) Range: 3.4-5.0 T PROT 7.5 g/dL (Normal) Range: 6.4-8.2 BUN/CRE 9.6 {RATIO} (Abnormal) Range: 10-20 Estimated CRCL 31.26 ml/min (Normal) EST GFR - AA 43 mL/min (Abnormal) Comments: GFR Calc EST GFR 35 mL/min (Abnormal) Comments: Non- GFR Calc CREAT,SERUM 1.57 mg/dL (Abnormal) Range: 0.55-1.20 Comments: The validity of the calculated GFR AND GFRAA in patients over70 years has not been determined. Clinical correlation isessential. BUN 15 mg/dL (Normal) Range: 7-18 GLU 238 mg/dL (Abnormal) Range: 70-110 Comments: Glucose result greater than or equal to 200 mg/dLsuggests DIABETES MELLITUS per A.D.A. criteria. :43 Lactic Acid Comments: Comments: To be drawn 6H after initial specimenWTwin City Hospital [address] [place], [place], [id number] LACTIC ACID 1.7 mmol/L (Normal) Range: 0.4-2.0 :43 Magnesium Comments: [facility] [address] [place], [place], [phone]) MG 1.3 mg/dL (Abnormal) Range: 1.8-2.4 :43 Partial Thromboplast Time Comments: [facility] [address] [place], [place], [phone] PTT 31.4 s (Normal) Range: 24.1-36.2 :43 Phosphorus Comments: [facility] [address] [place], [address] PHOS 1.0 mg/dL (Abnormal) Range: 2.5-4.9 Comments: Critical Result(s) Called at: 17:06:16 07/18/2015 by:Stacey ibarra rn 82-Gue-100298:43 Prothrombin Time w/INR Comments: [facility] [address] [place], [place], [phone](712) INR 0.9 (Normal) PROTIME 12.8 s (Normal) Range: 11.7-14.9 Plan of Care Name Dates Details Instructions BMI 31.0-31.9,adult : Eprescribed prescriptions (G8553) Indication: BMI 31.0-31.9,adult Encounter for annual general medical examination with abnormal findings in adult : fall reduction handout Indication: Encounter for annual general medical examination with abnormal findings in adult Encounter for annual general medical examination with abnormal findings in adult : elderly packet given Indication: Encounter for annual general medical examination with abnormal findings in adult Encounter for annual general medical examination with abnormal findings in adult : advance planning information Indication: Encounter for annual general medical examination with abnormal findings in adult Encounter for annual general medical examination with abnormal findings in adult : Reviewed Veneer Stacker Letter Indication: Encounter for annual general medical examination with abnormal findings in adult Encounter for annual general medical examination with abnormal findings in adult : Reviewed Lab Indication: Encounter for annual general medical examination with abnormal findings in adult Encounter for annual general medical examination with abnormal findings in adult : Reviewed Diagnostic Tests Indication: Encounter for annual general medical examination with abnormal findings in adult Nonsmoker : Eprescribed prescriptions (G8553) Indication: Nonsmoker Nonsmoker : Eprescribed prescriptions (G8553) Indication: Nonsmoker Nonsmoker : Follow up in 3 months Indication: Nonsmoker Nonsmoker : Follow up in 3 months Indication: Nonsmoker Nonsmoker : Eprescribed prescriptions (G8553) Indication: Nonsmoker BMI 32.0-32.9,adult : Follow up in 1 month Indication: BMI 32.0-32.9,adult Uncontrolled diabetes mellitus : Eprescribed prescriptions (G8553) Indication: Uncontrolled diabetes mellitus BMI 33.0-33.9,adult : Follow up in 3 months Indication: BMI 33.0-33.9,adult Encounter for screening for malignant neoplasm of colon (Renamed from Special screening for malignant neoplasms, colon) : *Colon Cancer Screening Indication: Encounter for screening for malignant neoplasm of colon (Renamed from Special screening for malignant neoplasms, colon) Diabetes mellitus type II, controlled, with no complications (Renamed from Controlled type 2 diabetes mellitus without complication) : Eprescribed prescriptions ([id number]) Indication: Diabetes mellitus type II, controlled, with no complications (Renamed from Controlled type 2 diabetes mellitus without complication) Chronic back pain : Reviewed Diagnostic Tests Indication: Chronic back pain Hypothyroid : Reviewed Diagnostic Tests Indication: Hypothyroid Uncontrolled diabetes mellitus : Reviewed Lab Indication: Uncontrolled diabetes mellitus BMI 32.0-32.9,adult : Follow up in 3 months Indication: BMI 32.0-32.9,adult Uncontrolled diabetes mellitus : Eprescribed prescriptions ([id number]) Indication: Uncontrolled diabetes mellitus Nonsmoker : Follow up in 3 months Indication: Nonsmoker Need for prophylactic vaccination and inoculation against influenza (Renamed from Need for immunization against influenza) : Eprescribed prescriptions (G8553) Indication: Need for prophylactic vaccination and inoculation against influenza (Renamed from Need for immunization against influenza) Insomnia : Follow up in 3 months Indication: Insomnia CKD (chronic kidney disease), stage III : Reviewed Lab Indication: CKD (chronic kidney disease), stage III Urinary casts : Reviewed Lab Indication: Urinary casts Sweating abnormality : Reviewed Lab Indication: Sweating abnormality Diabetes mellitus type II, controlled, with no complications (Renamed from Controlled type 2 diabetes mellitus without complication) : Eprescribed prescriptions (G8553) Indication: Diabetes mellitus type II, controlled, with no complications (Renamed from Controlled type 2 diabetes mellitus without complication) Low serum potassium level : Eprescribed prescriptions (G8553) Indication: Low serum potassium level Diabetes mellitus type 2, insulin dependent : Eprescribed prescriptions (G8553) Indication: Diabetes mellitus type 2, insulin dependent Cough : *Antibiotic Usage Education - Female Indication: Cough Sarcoidosis of other site : Follow up in 3 months Indication: Sarcoidosis of other site Sarcoidosis of other site : Eprescribed prescriptions (G8553) Indication: Sarcoidosis of other site Sarcoidosis of other site : Follow up if no improvement or if symptoms worsen Indication: Sarcoidosis of other site Abdominal pain in female : Reviewed Diagnostic Tests Indication: Abdominal pain in female Constipation : Reviewed Diagnostic Tests Indication: Constipation Abdominal pain in female : Reviewed Lab Indication: Abdominal pain in female Abdominal pain : Follow up in 1 week Indication: Abdominal pain Abdominal pain : Eprescribed prescriptions (G8553) Indication: Abdominal pain Hypothyroid : Hypothyroidism: Brief Version *: hypothyroidism Indication: Hypothyroid Hypothyroid : Eprescribed prescriptions (G8553) Indication: Hypothyroid Tenosynovitis of wrist : Follow up if no improvement or if symptoms worsen Indication: Tenosynovitis of wrist Diabetes mellitus type 2, insulin dependent : Follow up in 1 week for injection to wrist and make 3 month follow up Indication: Diabetes mellitus type 2, insulin dependent Diabetes mellitus type 2, insulin dependent : Eprescribed prescriptions (G8553) Indication: Diabetes mellitus type 2, insulin dependent Boil, axilla : Follow up if no improvement or if symptoms worsen Indication: Boil, axilla MRSA carrier : Follow up if no improvement or if symptoms worsen 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 MRSA carrier : Eprescribed prescriptions (G8553) 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 Anxiety : Follow up in 3 months Indication: Anxiety Shoulder pain, right : Follow up if no improvement or if symptoms worsen Indication: Shoulder pain, right Spinal stenosis of lumbar region with radiculopathy : Follow up in 3 months Indication: Spinal stenosis of lumbar region with radiculopathy Constipation : Follow up with DF then follow up q 3 months mec Indication: Constipation Hypertensive heart disease without heart failure : Reviewed Lab Indication: Hypertensive heart disease without heart failure COPD (chronic obstructive pulmonary disease) : Reviewed Lab Indication: COPD (chronic obstructive pulmonary disease) Sarcoidosis of other site : Reviewed Lab Indication: Sarcoidosis of other site Diabetes mellitus type 2, insulin dependent : Diet, Exercise, and Wt loss Indication: Diabetes mellitus type 2, insulin dependent Diabetes mellitus type 2, insulin dependent : Reviewed Lab Indication: Diabetes mellitus type 2, insulin dependent History of MRSA infection : Reviewed Lab Indication: History of MRSA infection L1 vertebral fracture : Follow up Saturday Indication: L1 vertebral fracture Low serum potassium level : Eprescribed prescriptions (G8553) Indication: Low serum potassium level Sepsis due to Staphylococcus : Eprescribed prescriptions (G8553) Indication: Sepsis due to Staphylococcus Diabetes mellitus type 2, insulin dependent : Eprescribed prescriptions (G8553) Indication: Diabetes mellitus type 2, insulin dependent Planned Observations Cologuard - Strool Based DNA Test, CRC SCREEN (30674)Indication: Encounter for screening for malignant neoplasm of colon (Renamed from Special screening for malignant neoplasms, colon) On: 07-Pit-058571:05 Request FECAL OCCULT- Tubes sent home ([id number])Indication: Encounter for screening for malignant neoplasm of colon (Renamed from Special screening for malignant neoplasms, colon) On: 48-Zar-934673:09 Request Lipid Panel (60322)Indication: Diabetes mellitus type 2, insulin dependent On: 60-Osq-196844:08 Request Comments: around January Metabolic Panel, Comprehensive (71483)Indication: Diabetes mellitus type 2, insulin dependent On: 91-Hes-591982:08 Request Comments: around January CBC, Platelets & Auto Diff (93347)Indication: Diabetes mellitus type 2, insulin dependent On: 67-Zko-037271:08 Request Comments: around January TSH (76344)Indication: Diabetes mellitus type 2, insulin dependent On: 97-Ifd-693402:08 Request Comments: around January Rapid Flu (13893 x 2)Indication: Unspecified Diagnosis On: 03-Cxv-96358:33 Request CBC & PLATELETS (AUTO) (96008)Indication: Abdominal pain On: 4-Ijb-740528:57 Request CULTURE, NOSE (24977)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 On: :31 Request Comments: check for MRSA MRSA Culture (12939)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 On: :23 Request Comments: rt axila HgA1C , Office (34392)Indication: Diabetes mellitus type 2, insulin dependent On: 42-Xiy-995810:21 Request Urinalysis, Office (69244)Indication: History of MRSA infection On: 44-Bpg-766405:42 Request Hemoglobin Glyclated (HGB A1C) (88437)Indication: Diabetes mellitus type 2, uncontrolled On: 10-Erk-347117:46 Request MICROALBUMIN: CREATININE RATIO (77112) AND (24252)Indication: Hypertensive heart disease without heart failure On: 25-Nsu-270438:46 Request Planned Encounters Medical; 3 Month FU - On: 28-Jul-2018 13:30 [facility] lEsa Chopra CNP, CNP, Mary E Planned Procedures Overnight Pulse OX (24155)By: On: 30-Jun-2018 Intent Lee Ann Schafer DO SPIROMETRY PERFORMED (58995)By: On: 25-Jun-2018 Intent Visit, Nurse SPIROMETRY PERFORMED ([id number])By: On: 25-Jun-2018 Intent Visit, Nurse SIX MINUTE WALK TEST (58775)By: On: 25-Jun-2018 Intent Visit, Nurse Flu Vaccine (Quadrivalent) [id number]: On: 20-May-2018 Intent Karly Chandra DEXA SCAN AXIAL SKELETON (88208)By: On: 18-Dec-2017 Intent Elsa Chopra CNP, CNP, Mary E SCREENING DIGITAL TOMOSYNTHESIS OF On: 18-Dec-2017 Intent BREAST ([id number])By: Elsa Chopra CNP, CNP, Mary E Flu Vaccine (Quadrivalent) [id number]: On: 11-Jun-2017 Intent Tatianaabelardomickey MCKINLEYElsa Tatianaabelardomickey MCKINLEY [place] Comments: InfluenzaLot #[id number]-L dltd, IMDose prefilled syringeVIS and ABN signedgiven by:GENARO blackwood PHYSICAL THERAPY TREATMENT On: 11-Dec-2016 Intent ([id number])By: Adelita Doshi LPN PHYSICAL THERAPY EVALUATION On: 11-Dec-2016 Intent ([id number])By: Elsa Chopra CNP, CNP [place] Toradol Injection, 30 mg On: 10-Dec-2016 Intent ([id number])By: Elsa Chopra CNP, CNP [place] Radiology - Hip - RightBy: Nav On: 10-Dec-2016 Intent ARLEN OneliaMarly Chopra CNP [place] Aerosol Treatment ([id number])By: Tico On: 16-Oct-2016 Intent Adelita LAM Flu Vaccine (Quadrivalent) [id number]: On: 11-Jul-2016 Intent Elsa Chopra CNP, CNP [place] Comments: FLUlot: [id number]:01/16site:Lt deltoidroute:IMdose:.5mlDEMICK, [place] Ultrasound - Abdomen CompleteBy: On: 03-Jul-2016 Intent Elsa Chopra CNP, CNP [facility] - KUBBy: Elsa Chopra CNP On: 03-Jul-2016 Elsa Youssef CNP DRAIN/INJECT SMALL JOINT OR BURSA On: 18-May-2016 Intent ()By: Elsa Chopra CNP Comments: to left wrist joint 1/2 cc kenalog, 1/2 cc marcaine. Kenalog lot [id number] exp Marcain lot [id number] ex Elsa MCKINLEY MAMMOGRAM, SCREENING, BOTH BREAST On: 11-May-2016 Intent ([id number])By: Elsa Chopra CNP, CNP, Mary E Radiology - Chest- PA and LatBy: On: 23-Aug-2015 Intent Fast DO, Madeline A Comments: 4 weeks Radiology - Chest- PA and LatBy: On: 25-Jul-2015 Intent Fast DO, Madeline A Comments: 3 weeks Planned Medications INJECTION, KETOROLAC TROMETHAMINE, PER 15 MG Ordered: 10-Dec-2016 Pending Elsa Chopra CNP, CNP, Mary E Instructions Name Dates Details BMI 31.0-31.9,adult : How to access health information online Indication: BMI 31.0-31.9,adult BMI 31.0-31.9,adult : How to access health information online - Detail Indication: BMI 31.0-31.9,adult BMI 31.0-31.9,adult : Patient Instructions Indication: BMI 31.0-31.9,adult Nonsmoker : How to access health information online Indication: Nonsmoker Nonsmoker : How to access health information online - Detail Indication: Nonsmoker Pneumococcal vaccination given : Patient Instructions Indication: Pneumococcal vaccination given Nonsmoker : How to access health information online Indication: Nonsmoker Nonsmoker : How to access health information online - Detail Indication: Nonsmoker Nonsmoker : Patient Instructions Indication: Nonsmoker Nonsmoker : How to access health information online Indication: Nonsmoker Nonsmoker : How to access health information online - Detail Indication: Nonsmoker Nonsmoker : Patient Instructions Indication: Nonsmoker Uncontrolled diabetes mellitus : How to access health information online Indication: Uncontrolled diabetes mellitus Uncontrolled diabetes mellitus : How to access health information online - Detail Indication: Uncontrolled diabetes mellitus Uncontrolled diabetes mellitus : Patient Instructions Indication: Uncontrolled diabetes mellitus Diabetes mellitus type II, controlled, with no complications (Renamed from Controlled type 2 diabetes mellitus without complication) : How to access health information online Indication: Diabetes mellitus type II, controlled, with no complications (Renamed from Controlled type 2 diabetes mellitus without complication) Diabetes mellitus type II, controlled, with no complications (Renamed from Controlled type 2 diabetes mellitus without complication) : How to access health information online - Detail Indication: Diabetes mellitus type II, controlled, with no complications (Renamed from Controlled type 2 diabetes mellitus without complication) Diabetes mellitus type II, controlled, with no complications (Renamed from Controlled type 2 diabetes mellitus without complication) : Patient Instructions Indication: Diabetes mellitus type II, controlled, with no complications (Renamed from Controlled type 2 diabetes mellitus without complication) Uncontrolled diabetes mellitus : How to access health information online Indication: Uncontrolled diabetes mellitus Uncontrolled diabetes mellitus : How to access health information online - Detail Indication: Uncontrolled diabetes mellitus Uncontrolled diabetes mellitus : Patient Instructions Indication: Uncontrolled diabetes mellitus Need for prophylactic vaccination and inoculation against influenza (Renamed from Need for immunization against influenza) : How to access health information online Indication: Need for prophylactic vaccination and inoculation against influenza (Renamed from Need for immunization against influenza) Need for prophylactic vaccination and inoculation against influenza (Renamed from Need for immunization against influenza) : How to access health information online - Detail Indication: Need for prophylactic vaccination and inoculation against influenza (Renamed from Need for immunization against influenza) Hypertensive heart disease without heart failure : Patient Instructions Indication: Hypertensive heart disease without heart failure Hypothyroid : Patient Instructions Indication: Hypothyroid Diabetes mellitus type II, controlled, with no complications (Renamed from Controlled type 2 diabetes mellitus without complication) : How to access health information online Indication: Diabetes mellitus type II, controlled, with no complications (Renamed from Controlled type 2 diabetes mellitus without complication) Diabetes mellitus type II, controlled, with no complications (Renamed from Controlled type 2 diabetes mellitus without complication) : How to access health information online - Detail Indication: Diabetes mellitus type II, controlled, with no complications (Renamed from Controlled type 2 diabetes mellitus without complication) Diabetes mellitus type II, controlled, with no complications (Renamed from Controlled type 2 diabetes mellitus without complication) : Patient Instructions Indication: Diabetes mellitus type II, controlled, with no complications (Renamed from Controlled type 2 diabetes mellitus without complication) Diabetes mellitus type II, controlled, with no complications (Renamed from Controlled type 2 diabetes mellitus without complication) : DISCONTINUED - URINALYSIS ([id number]) Indication: Diabetes mellitus type II, controlled, with no complications (Renamed from Controlled type 2 diabetes mellitus without complication) CKD (chronic kidney disease), stage III : DISCONTINUED - MICROALBUMIN: CREATININE RATIO ([id number]) AND ([id number]) Indication: CKD (chronic kidney disease), stage III Diabetes mellitus type II, controlled, with no complications (Renamed from Controlled type 2 diabetes mellitus without complication) : DISCONTINUED - CBC, PLATELETS & AUT DIFF (25455) Indication: Diabetes mellitus type II, controlled, with no complications (Renamed from Controlled type 2 diabetes mellitus without complication) Diabetes mellitus type II, controlled, with no complications (Renamed from Controlled type 2 diabetes mellitus without complication) : DISCONTINUED - METABOLIC PANEL, COMPREHENSIVE ([id number]) Indication: Diabetes mellitus type II, controlled, with no complications (Renamed from Controlled type 2 diabetes mellitus without complication) Diabetes mellitus type II, controlled, with no complications (Renamed from Controlled type 2 diabetes mellitus without complication) : DISCONTINUED - TSH ([id number]) Indication: Diabetes mellitus type II, controlled, with no complications (Renamed from Controlled type 2 diabetes mellitus without complication) Low serum potassium level : How to access health information online Indication: Low serum potassium level Low serum potassium level : How to access health information online - Detail Indication: Low serum potassium level Low serum potassium level : Patient Instructions Indication: Low serum potassium level Diabetes mellitus type 2, insulin dependent : How to access health information online Indication: Diabetes mellitus type 2, insulin dependent Diabetes mellitus type 2, insulin dependent : How to access health information online - Detail Indication: Diabetes mellitus type 2, insulin dependent Diabetes mellitus type 2, insulin dependent : Patient Instructions Indication: Diabetes mellitus type 2, insulin dependent Sarcoidosis of other site : How to access health information online Indication: Sarcoidosis of other site Sarcoidosis of other site : How to access health information online - Detail Indication: Sarcoidosis of other site Sarcoidosis of other site : Patient Instructions Indication: Sarcoidosis of other site Diabetes mellitus type 2, insulin dependent : DISCONTINUED - METABOLIC PANEL, BASIC (96235) Indication: Diabetes mellitus type 2, insulin dependent Abdominal pain : How to access health information online Indication: Abdominal pain Abdominal pain : How to access health information online - Detail Indication: Abdominal pain Abdominal pain : Patient Instructions Indication: Abdominal pain Hypothyroid : Patient Instructions Indication: Hypothyroid Hypothyroid : How to access health information online Indication: Hypothyroid Hypothyroid : How to access health information online - Detail Indication: Hypothyroid Hypothyroid : Patient Instructions Indication: Hypothyroid Diabetes mellitus type 2, insulin dependent : How to access health information online Indication: Diabetes mellitus type 2, insulin dependent Diabetes mellitus type 2, insulin dependent : How to access health information online - Detail Indication: Diabetes mellitus type 2, insulin dependent Diabetes mellitus type 2, insulin dependent : Patient Instructions Indication: Diabetes mellitus type 2, insulin dependent MRSA carrier : How to access health information online 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 MRSA carrier : How to access health information online - Detail 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 MRSA carrier : Patient Instructions 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 Diabetes mellitus type 2, insulin dependent : Patient Instructions Indication: Diabetes mellitus type 2, insulin dependent Diabetes mellitus type 2, insulin dependent : Patient Instructions Indication: Diabetes mellitus type 2, insulin dependent Low serum potassium level : How to access health information online Indication: Low serum potassium level Low serum potassium level : How to access health information online - Detail Indication: Low serum potassium level Low serum potassium level : Patient Instructions Indication: Low serum potassium level Sepsis due to Staphylococcus : How to access health information online Indication: Sepsis due to Staphylococcus Sepsis due to Staphylococcus : How to access health information online - Detail Indication: Sepsis due to Staphylococcus Sepsis due to Staphylococcus : Patient Instructions Indication: Sepsis due to Staphylococcus Diabetes mellitus type 2, insulin dependent : How to access health information online Indication: Diabetes mellitus type 2, insulin dependent Diabetes mellitus type 2, insulin dependent : How to access health information online - Detail Indication: Diabetes mellitus type 2, insulin dependent Diabetes mellitus type 2, insulin dependent : Patient Instructions Indication: Diabetes mellitus type 2, insulin dependent Encounters Office Visit On: 30-Jun-2018 9:32 Encounter Diagnosis: Hypoxia End: 30-Jun-2018 10:00 [facility] Office Visit On: 25-Jun-2018 14:44 Encounter Reason: Nurse procedure visitEncounter Diagnosis: Nonsmoker, BMI 31.0- 31.9,adult, COPD (chronic obstructive pulmonary disease) End: 27-Jun-2018 14:48 [facility] Office Visit On: 27-May-2018 12:50 Encounter Reason: Annual Medicare Exam - The patient had reviewed and updated the family history and past medical history. Yes the patient did have a mini mental status exam done today. The activities of daily living the End: 27-May-2018 14:27 patient needs help with are none. The patient has driven in past 6 months and put area rugs through house, but the patient has not had fecal incontinence, had urinary incontinence, missed or ran out of medications to soon, fallen in the past 6 months, gotten lost, has a medalert necklace or bracelet or put handrails in bathroom. The patient has completed the following preventative measures: mammograp hy (2018). The patient does not have durable power of document review attorney or living will. The patient has noticed getting bored, poor spirits most of time and lack of energy. Other providers contributing to the lyndsey bolton's care are clinical research associate () and urologist (). Note for Annual Medicare Exam: Here for medicare physicalEncounter Diagnosis: Nonsmoker, BMI 31.0-31.9,adult, Hypothyroid, Nausea, Encounter for annual general medical examination with abnormal findings in adult, Pneumococcal vaccination given [facility] Annotation/Addendum On: 23-May-2018 6:16 [facility] End: 23-May-2018 6:27 Office Visit On: 20-May-2018 15:19 Encounter Reason: Follow up for diabetes/glucose intolerance - The patient feels well with no complaints, has decreased energy level and is sleeping poorly. Patient has been compliant with instructions. Nutrition: inappr End: 20-May-2018 15:59 opriate diet. fasting blood sugars : (115-125). Note for Follow up for diabetes/glucose intolerance: BS in am 115-125 since adding extra pill labs betterEncounter Diagnosis: Nonsmoker, BMI 31.0-31.9,adult, Need for prophylactic vaccination and inoculation against influenza (Renamed from Need for immunization against influenza), BMI 32.0-32.9,adult, Uncontrolled diabetes mellitus [facility] Annotation/Addendum On: 06-May-2018 8:18 [facility] End: 06-May-2018 8:25 Office Visit On: 23-Apr-2018 12:55 Encounter Reason: Follow up tests - Diagnostic tests include other (labs). Date: (04/17). Note for Discuss procedure results: occasionally gets sick and throw up then okHas dry mouth drinks 10-12 glasses per dayEncounter Diagnosis: End: 23-Apr-2018 14:03 BMI 32.0-32.9,adult, Nonsmoker, Uncontrolled diabetes mellitus, CKD (chronic kidney disease), stage III [facility] Office Visit On: 19-Mar-2018 11:19 Encounter Reason: Follow up for chronic medical issues - The patient feels well with minor complaints and is sleeping poorly. Patient has been compliant with instructions. Current medication use: no side effects. Patient End: 19-Mar-2018 15:06 sleeps 3 hours per night. The medical issues the patient is following up for include blood sugar issues, cardiac issues (chf), COPD, high cholesterol and other (migraines). fasting blood sugars :., [ADDITIONAL REASON] Follow up tests - Diagnostic tests include other (LABS). , [ADDITIONAL REASON] sweating - Sweating day and night feels drenched and dont know what to do about it. Encounter Diagnosis: Nonsmoker, BMI 32.0-32.9,adult, Nausea, Skin texture changes, Uncontrolled diabetes mellitus, Sweating increase, Encounter for screening for malignant neoplasm of colon (Renamed from Special screening for malignant neoplasms, colon) [facility] Lab Order On: 22-Jan-2018 13:32 Encounter Diagnosis: L1 vertebral fracture End: 22-Jan-2018 13:37 [facility] Annotation/Addendum On: 22-Jan-2018 6:18 [facility] End: 22-Jan-2018 6:21 Office Visit On: 18-Dec-2017 13:30 Encounter Reason: Follow up for chronic medical issues - The patient feels well with minor complaints (sister recently ; having issues with sweating and breathing.) and is sleeping poorly. Patient has been RealD End: 18-Dec-2017 14:15 pliant with instructions. Current medication use: no side effects. Patient sleeps 3 hours per night. The medical issues the patient is following up for include blood sugar issues, cardiac issues (chf), COPD, high cholesterol and other (migraines). fasting blood sugars :. Note for Follow up for chronic medical issues: Follow up for DMSTill seeing Dr. Whittington pain specialist was taken off of oxycontin and on Xtemipza, [ADDITIONAL REASON] Follow up tests - Diagnostic tests include other (labs). Encounter Diagnosis: Diabetes mellitus type II, controlled, with no complications (Renamed from Controlled type 2 diabetes mellitus without complication), Nonsmoker, BMI 33.0-33.9,adult, CKD (chronic kidney disease), COPD (chronic obstructive pulmonary disease), Encounter for screening for malignant neoplasm of colon (Renamed from Special screening for malignant neoplasms, colon), Encounter for screening mammogram for breast cancer (Renamed from Encounter for screening mammogram for malignant neoplasm of breast), Postmenopausal (Renamed from Postmenopausal status), Sarcoidosis of other site [facility] Office Visit On: 18-Sep-2017 12:55 Encounter Reason: Follow up for chronic medical issues - The patient feels well with minor complaints (sister recently ; having issues with sweating and breathing.) and is sleeping poorly. Patient has been RealD End: 18-Sep-2017 13:50 pliant with instructions. Current medication use: no side effects. Patient sleeps 3 hours per night. The medical issues the patient is following up for include blood sugar issues, cardiac issues (chf), COPD, high cholesterol and other (migraines). fasting blood sugars :. Note for Follow up for chronic medical issues: Follow up for DMEncounter Diagnosis: Uncontrolled diabetes mellitus, BMI 35.0-35.9,adult, Nonsmoker, Hypothyroid, Anxiety, BMI 32.0-32.9,adult, Nausea, COPD (chronic obstructive pulmonary disease), Chronic back pain, Lipoma of arm [facility] Annotation/Addendum On: 30-Jul-2017 16:54 Encounter Diagnosis: Unspecified Diagnosis End: 30-Jul-2017 16:57 [facility] Annotation/Addendum On: 14-Jun-2017 9:04 Encounter Diagnosis: Elevated alkaline phosphatase level, Fatty liver End: 14-Jun-2017 9:09 [facility] Office Visit On: 11-Jun-2017 14:07 Encounter Reason: Follow up for chronic medical issues - The patient feels well with minor complaints (sister recently ; having issues with sweating and breathing.) and is sleeping poorly. Patient has been com End: 11-Jun-2017 14:46 pliant with instructions. Current medication use: no side effects. Patient sleeps 3 hours per night. The medical issues the patient is following up for include blood sugar issues, cardiac issues (chf), COPD, high cholesterol and other (migraines). fasting blood sugars :., [ADDITIONAL REASON] sweating - Increased sweating despite minimal activity. Sweat rolls down face Encounter Diagnosis: Need for prophylactic vaccination and inoculation against influenza (Renamed from Need for immunization against influenza), Hypertensive heart disease without heart failure, Spinal stenosis of lumbar region with radiculopathy, BMI 35.0-35.9,adult, Nonsmoker, Uncontrolled diabetes mellitus, Sweating abnormality, Hypothyroid, Elevated alkaline phosphatase level [facility] Annotation/Addendum On: 31-May-2017 15:32 [facility] End: 31-May-2017 15:33 Phone Encounter On: 22-Mar-2017 15:45 Encounter Diagnosis: Unspecified Diagnosis End: 22-Mar-2017 15:48 [facility] Annotation/Addendum On: 11-Mar-2017 14:30 Encounter Diagnosis: Unspecified Diagnosis End: 11-Mar-2017 14:34 [facility] Office Visit On: 25-Feb-2017 7:54 Encounter Reason: Follow up for chronic medical issues - The patient feels well with minor complaints (left knee pain, trouble sleeping, left ankle has knot on it and wrist is still bothering me. Shot didn't seem to he End: 25-Feb-2017 12:11 lp) and is sleeping poorly. Patient has been compliant with instructions. Current medication use: no side effects. Patient sleeps 3 hours per night. The medical issues the patient is following up for in clude blood sugar issues, cardiac issues (chf), COPD, high cholesterol and other (migraines). fasting blood sugars :., [ADDITIONAL REASON] Follow up tests - Diagnostic tests include other (labs). , [ADDITIONAL REASON] Ankle Swelling - Symptoms include ankle swelling. Symptoms are located in the left ankle. The symptoms occur constantly. Note for Ankle swelling: left foot ankle swelling , [ADDITIONAL REASON] Knee Pain - Note for Knee pain: left knee pain , [ADDITIONAL REASON] Insomnia - Note for Insomnia: Cannot sleep Encounter Diagnosis: Diabetes mellitus type II, controlled, with no complications (Renamed from Controlled type 2 diabetes mellitus without complication), BMI 34.0-34.9,adult, Current nonsmoker, Sweating abnormality, Hypothyroid, Urinary casts, CKD (chronic kidney disease), stage III, Insomnia [facility] Annotation/Addendum On: 11-Dec-2016 15:58 Encounter Diagnosis: Hip pain End: 11-Dec-2016 16:01 [facility] Annotation/Addendum On: 11-Dec-2016 15:44 Encounter Diagnosis: Hip pain End: 11-Dec-2016 15:46 [facility] Annotation/Addendum On: 10-Dec-2016 14:41 Encounter Diagnosis: Unspecified Diagnosis End: 10-Dec-2016 16:12 [facility] Office Visit On: 10-Dec-2016 11:20 Encounter Reason: Follow up acute care visit - The patient feels the same. Patient has been compliant with instructions.Encounter Diagnosis: BMI 33.0-33.9,adult, Low serum potassium level, Hypothyroid, End: 10-Dec-2016 13:07 Diabetes mellitus type II, controlled, with no complications (Renamed from Controlled type 2 diabetes mellitus without complication), CKD (chronic kidney disease), stage III, Rt groin pain [facility] Office Visit On: 19-Nov-2016 14:37 Encounter Reason: Follow up for chronic medical issues - The patient feels well with minor complaints (back pain off and on still) and is sleeping poorly. Patient has been compliant with instructions. Current medication End: 19-Nov-2016 16:09 use: no side effects. The medical issues the patient is following up for include blood sugar issues, cardiac issues (chf), COPD, high cholesterol and other (migraines). fasting blood sugars : (not doing levemir. ??BS now around 110 in mornings and around 170 in evenings).Encounter Diagnosis: Diabetes mellitus type 2, insulin dependent, BMI 33.0-33.9,adult, Smoker, Hypothyroid, CKD (chronic kidney disease), stage III, Anxiety, Chronic back pain [facility] Annotation/Addendum On: 26-Oct-2016 15:50 [facility] End: 26-Oct-2016 15:52 Annotation/Addendum On: 17-Oct-2016 8:32 Encounter Diagnosis: Unspecified Diagnosis End: 17-Oct-2016 8:33 [facility] Office Visit On: 16-Oct-2016 14:58 Encounter Reason: Cough - Symptoms include cough, dyspnea, wheezing, chills, runny nose and pleuritic chest pain. The cough is described as wheezy and productive. Cough onset was gradual 3 week(s) ago. Symptoms are descr End: 16-Oct-2016 15:54 ibed as worsening. Symptoms are exacerbated by lying down. Associated symptoms include headache. Previous presentation included a cough, a runny nose, dyspnea and pleuritic chest pain.Encounter Diagnosis: BMI 32.0-32.9,adult, Cough, UTI symptoms, Sinusitis, acute, Wheeze [facility] Phone Encounter On: 12-Sep-2016 11:23 Encounter Diagnosis: Hypothyroid End: 12-Sep-2016 11:25 [facility] Office Visit On: 10-Aug-2016 12:42 Encounter Reason: Follow up for chronic medical issues - The patient feels well with no complaints and is sleeping poorly. Patient has been compliant with instructions. Current medication use: no side effects. The medica End: 10-Aug-2016 13:28 l issues the patient is following up for include blood sugar issues, cardiac issues (chf), COPD, high cholesterol and other (migraines). fasting blood sugars : (not doing levemir. ??BS now around 110 in mornings and around 170 in evenings)., [ADDITIONAL REASON] Follow up tests - Date: (07.11.16). Encounter Diagnosis: Sarcoidosis of other site, Shoulder pain, right, Diabetes mellitus type II, controlled, with no complications (Renamed from Controlled type 2 diabetes mellitus without complication), CKD (chronic kidney disease), stage III [facility] Annotation/Addendum On: 11-Jul-2016 13:39 Encounter Diagnosis: Diabetes mellitus type 2, insulin dependent, Need for prophylactic vaccination and inoculation against influenza (Renamed from Need for immunization against influenza) End: 11-Jul-2016 13:53 [facility] Office Visit On: 11-Jul-2016 12:36 Encounter Reason: Follow up acute care visit - The patient improving. Patient has been non-compliant with instructions. The medical issues the patient is following up for include other (abd pain)., End: 11-Jul-2016 13:36 [ADDITIONAL REASON] Follow up tests - Diagnostic tests include ultrasound. Encounter Diagnosis: BMI 33.0-33.9,adult, Abdominal pain in female, Smoker, Fatty liver, Constipation, Sarcoidosis of other site [facility] Office Visit On: 03-Jul-2016 11:45 Encounter Reason: Abdominal pain - The onset of the pain has been gradual and has been occurring in a persistent pattern for 1 week. The course has been constant. The pain is described as a severe dull ache. The pain is End: 03-Jul-2016 14:59 described as being located in the right lower quadrant. The pain radiates to the back.Encounter Diagnosis: Abdominal pain [facility] Office Visit On: 06-Jun-2016 12:59 Encounter Reason: Follow up tests - Diagnostic tests include other (labs). Date: (06/01/16).Encounter Diagnosis: Hypothyroid End: 06-Jun-2016 13:50 [facility] Office Visit On: 18-May-2016 11:10 Encounter Reason: Wrist Pain - This condition occurred without any known injury. The patient is right hand dominant. The injury involved the left wrist. This occurred 6 month(s) ago. Symptoms include wrist pain and decre End: 18-May-2016 11:51 ased range of motion. Symptoms are located in the left wrist. The symptoms occur constantly. The patient describes symptoms as worsening. Symptoms are exacerbated by motion at the wrist, use of the hand and direct pressure.Encounter Diagnosis: Tenosynovitis of wrist [facility] Office Visit On: 11-May-2016 13:06 Encounter Reason: Follow up for chronic medical issues - The patient feels well with minor complaints (left wrist pain, muscle spasms--worse the last two months) and is sleeping poorly (left wrist pain). Patient has been End: 11-May-2016 14:08 compliant with instructions. Current medication use: no side effects. The medical issues the patient is following up for include blood sugar issues, cardiac issues (chf), COPD, high cholesterol and oth er (migraines). fasting blood sugars : (not doing levemir. BS now around 110 in mornings and around 170 in evenings)., [ADDITIONAL REASON] Wrist Pain - This condition occurred without any known injury. The patient is ri ght hand dominant. The injury involved the left wrist. Symptoms include wrist pain and decreased range of motion. Encounter Diagnosis: Diabetes mellitus type 2, insulin dependent, Anxiety, GERD (gastroesophageal reflux disease), COPD (chronic obstructive pulmonary disease), Congestive heart failure, Encounter for screening mammogram for breast cancer (Renamed from Encounter for screening mammogram for malignant neoplasm of breast), CKD (chronic kidney disease), stage III, Chronic pain, Wrist pain, Abnormal TSH, Muscle spasm [facility] Office Visit On: 12-Mar-2016 12:55 Encounter Reason: Skin Lesions - Symptoms include multiple skin lesions. Lesion(s) are located on the right trunk area. The patient describes the lesion(s) as painful and red. Onset was sudden 4 day(s) ago. The symptoms End: 12-Mar-2016 13:34 occur constantly. Presentation included erythema and pain.Encounter Diagnosis: MRSA carrier, Boil, axilla [facility] Annotation/Addendum On: 21-Feb-2016 11:52 Encounter Reason: Nurse procedure visit - Reason for visit: other (glucose check after med change).Encounter Diagnosis: Diabetes mellitus type 2, insulin dependent End: 21-Feb-2016 13:46 [facility] Annotation/Addendum On: 08-Feb-2016 11:40 Encounter Diagnosis: Diabetes mellitus type 2, insulin dependent End: 08-Feb-2016 12:09 [facility] Office Visit On: 07-Feb-2016 13:17 Encounter Reason: Follow up for chronic medical issues - The patient feels well with minor complaints (upper back starting get a lot of muscle spasms--started within the last month. Always had, but more frequent now) and End: 07-Feb-2016 14:27 is sleeping poorly (up late until 3 or 4 am, sleeps in, takes naps during the day). Patient has been compliant with instructions. Current medication use: no side effects. The medical issues the patient is following up for include blood sugar issues, cardiac issues (chf), COPD, high cholesterol and other (migraines). fasting blood sugars : (110-120 in am).Encounter Diagnosis: Diabetes mellitus type 2, insulin dependent, Chronic, continuous use of opioids, Spinal stenosis of lumbar region with radiculopathy, Anxiety, Hypercholesteremia, Hypertensive heart disease without heart failure, CAD (coronary artery disease), Migraine, Sarcoidosis of other site, CKD (chronic kidney disease), Insomnia, Fibromyalgia [facility] Office Visit On: 20-Jan-2016 7:34 Encounter Reason: Follow up Meds - Note for Follow up Meds: I had surgery in Oct. Wondering if should take omeprazole Encounter Diagnosis: Spinal stenosis of lumbar region with radiculopathy, GERD (gastroesophageal reflux disease), End: 20-Jan-2016 14:54 Hypertensive heart disease without heart failure, Diabetes mellitus type 2, insulin dependent, Bone pain, Sarcoidosis of other site, Hypercholesteremia, Anxiety, Shoulder pain, right [facility] Phone Encounter On: 28-Nov-2015 7:42 Encounter Diagnosis: Diabetes mellitus type 2, insulin dependent End: 28-Nov-2015 7:46 [facility] Office Visit On: 07-Nov-2015 13:27 Encounter Reason: Follow up hospital - Reason for ER visit: note: (surgery [facility]. ). The patient feels well with minor complaints (some pain). Patient sleeps 7 hours per night. Impact of disease: impact on r End: 07-Nov-2015 14:22 ecreation-mild. Nutrition: balanced diet.Encounter Diagnosis: Diabetes mellitus type 2, insulin dependent, COPD (chronic obstructive pulmonary disease), CKD (chronic kidney disease), stage III, Hypertensive heart disease without heart failure, Spinal stenosis of lumbar region with radiculopathy, Constipation, Sarcoidosis of other site [facility] Office Visit On: 26-Oct-2015 10:26 Encounter Reason: Follow up tests - Diagnostic tests include other (MRSA/labs). Date: (10/21). Current symptoms include cough.Encounter Diagnosis: History of MRSA infection, Diabetes mellitus type 2, insulin dependent, End: 26-Oct-2015 14:20 Hypertensive heart disease without heart failure, Congestive heart failure, Anxiety, Sarcoidosis of other site, CKD (chronic kidney disease), stage III, COPD (chronic obstructive pulmonary disease) [facility] Historical Summary On: 21-Oct-2015 14:51 Encounter Diagnosis: Unspecified Diagnosis End: 21-Oct-2015 15:03 [facility] Office Visit On: 21-Oct-2015 12:33 Encounter Reason: Follow up acute care visit - Patient has been compliant with instructions. Current medication use: no side effects. The medical issues the patient is following up for include other (MRSA). Note for Fol End: 21-Oct-2015 14:39 low up acute care visit: Complicated pt comes to office on Saturday afternoon asking for pre-op testing for surgery on Saturday by Dr. Fernandez. She presents with no papers or pre-op information. She was see n in office about 10-03-2015 for a MRSA positive infection and treated. No follow up of MRSA. She has had pre-op testing at [facility] on 10-14-2015, for Lumbar microdecompression for 10-24-2015 Blood work. Residence Director Dr. Dahl for papers to be signed for surgery. Encounter Diagnosis: History of MRSA infection, Diabetes mellitus type 2, insulin dependent, Anxiety, Hypertensive heart disease without heart failure, Sarcoidosis of other site, CAD (coronary artery disease), L1 vertebral fracture [facility] Annotation/Addendum On: 04-Oct-2015 13:18 Encounter Diagnosis: MRSA carrier End: 04-Oct-2015 13:21 [facility] Office Visit On: 03-Oct-2015 12:31 Encounter Reason: MRSA - MRSA testwas treated in past for MRSA was given home IV's etc Encounter Diagnosis: Diabetes mellitus type 2, uncontrolled, History of MRSA infection, Anxiety End: 03-Oct-2015 13:55 [facility] Phone Encounter On: 22-Sep-2015 11:22 Encounter Diagnosis: Hypertensive heart disease without heart failure End: 22-Sep-2015 11:26 [facility] Office Visit On: 23-Aug-2015 14:19 Encounter Reason: Follow up tests - Date: (08/16). Note for Discuss procedure results: per patient mrsa gone and on pred 10mg - and then has followup- off all antiobiitoics and no fevers- she jut saw kidney doctor and End: 23-Aug-2015 23:58 her sugars running higher with prednsione Encounter Diagnosis: Low serum potassium level, Hypertensive heart disease without heart failure, Diabetes type II,uncontrolled, no comp (250.02), Sarcoidosis of other site, Rectal Bleeding(569.3), Abnormal chest xray [facility] Office Visit On: 25-Jul-2015 12:55 Encounter Reason: Transition into care - The patient is transitioning into care from a hospital and a summary of care was reviewed ., [ADDITIONAL REASON] Follow up hospital - Reason for ER visit: note: (sepsis). The patient feels well End: 25-Jul-2015 20:53 with minor complaints (feeling a lot better since here last, some nausea but thinks from atb), has decreased energy level and is sleeping well. Patient has been compliant with instructions. Current med ication use: no side effects and compliant with dosing regimen. Patient sleeps 9 hours per night. Note for Follow up hospital: getting vaginal yeast from antiobitics- she has issues with right shoulde r tendinitis - needs treatment- had labs on saturday - visiting nurse coming three times a week- has order for pt as well- and ot- they will schedule- eating ok- - no fever- bowels moving ok - not taking probiotics encoruage is doing bactroban and chlorahexadine to clear carrier state had mrsa in blood 4 bottles thought due to boil- sugars 130-140 am or lower -= in afternoon 240-250- goes by sliding scale Encounter Diagnosis: Right shoulder tendinitis, Sepsis due to Staphylococcus, Hypertensive heart disease without heart failure, Diabetes mellitus type 2, insulin dependent, Vaginal [place] [facility] Phone Encounter On: 22-Jul-2015 11:23 [facility] End: 22-Jul-2015 11:37 Office Visit On: 18-Jul-2015 14:14 Encounter Reason: Transition into care - The patient is transitioning into care from another physician and a summary of care was reviewed ., [ADDITIONAL REASON] Follow up ER - Reason for hospitalization abdominal pain (right sided groin area End: 19-Jul-2015 22:21 - sharp pain- went to [facility] ER). Current medication use: no side effects and compliant with dosing regimen. The patient does not feel well, has decreased energy level and is sleeping poorly (fell and broke her back). Patient sleeps 10 hours per night. Note for Follow up ER: she fell and had L!frascture on jun 25 and had repair of fracture with cement- end of jun- in bodice brace- cant bend or twist or lift- - Dr De Leon - orthopedic surgeon- - recently went to er at [facility] on jul 14 - she was having lower abd groin pain - and is feeling better - doesnt remeber why fell- doesnt rember di zzy - fell on steps and fell backwards- in er did noncontrast ct - stool - stool is black and constipated and takes 3 laxa tive a day- - they thought uti on nitrofurantoin- had issues a year ago with sandra ngs sounds like had to go home on o2- but got off- of it- she is dozing off in office and hard to keep awake- and oxygen level low- Encounter Diagnosis: Diabetes, Type II, controlled (250.00), Sarcoidosis of other site, L1 vertebral fracture, Hypoxia , Depression/Anxiety (300.4), Hypertensive heart dx. (402.90), Congestive Heart Failure (428.0), Tachycardia (Renamed from Fast heart beat), Rectal Bleeding(569.3) [facility] Payers [employer]/Medicare adv [place]; a guarantor
--- OUTSIDE RECORDS SUMMARY | 2018-09-25 14:23 | XMS RPT_ITS | Continuity of Care Document ---
:1950 Author Organization [facility] Address [address] [facility] [address] [place] [address] Phone Care Team Providers Name Role Phone Nav ARLENElsa Unavailable Malcolm STANLEY, Casey Florian Unavailable Linden DO , Dr. Aaron Diaz Unavailable John BatistaAnnalisa Unavailable Dr. Abimael Ag Unavailable Kirby STANLEY, Jared Galeano Unavailable Pascale Boston Unavailable Slarb FOLEY ARTIST, Adelita Unavailable Unavailable Long FOLEY ARTIST, Dora L Unavailable Unavailable Karly Chandra Unavailable [...] 585.3) Comments: follows with Dr. Munguia in [place], seen for sarcoidosis currently, stableGFR 42 Status: [...] on wean of steroid Scale 201-250. 5 iiapf341-087 8 ywmlt256-003 10 ukovn396-237 12 units>401 15 unitsad ding metformin not [...] given in L arm subcutaneously paitent tolerated wellLOT#[id number]#2020 NOV 06 Status: Active Postmenopausal (Renamed from Postmenopausal status) (Z78.0, V49.81) Status: Active Pregnancies () Comments: 1. 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) Comments: Sees Ciara at [facility] for sarcoid in bone marrow just saw [...] Quantity: 30 {Tablet} Refills: 3 Ordered:02-May-2018 Nav MCKINLEY, Elsa Reyes CNP, Elsa Luke [...] MOY Start : 18-Jul-2015 Active VITAMIN D3, 73764ISNP (Oral Capsule) 1 (one) Capsule Capsule once [...] Refills: 0 Ordered:12-Mar-2016 Nav ARLEN, Elsa Reyes PATTERN DRAFTER, Elsa Luke Start : 12-Mar-2016 End : [...] q12hrs (100 MG) End : 05-Aug-2015 Discontinued Comments:[facility] MUPIROCIN, 2% (External Ointment) 1 (one) Ointment [...] : 05-Aug-2015 Discontinued Comments:1,250mg IV q24hrs x 01bvrb6,500mg IV q24hrs #14 Allergies and Adverse Reactions [...] Comments: was seeing Dr. Munguia's partner in [place] Dr. Morel, gfr 43%, has proteinuria Status: [...] Visit Report Result: Comments: See Note; NOTES: [facility] [address] [place] [address] OFFICE VISIT Date of Service: 02/17/18 MR#: [id number] Acct: [id number] Name: SHREYAS KATHLEEN Rep #: [id number] : 1950 Provider: Casey Fowler MD Age/Sex: 67/F Location: [facility] Status: Signed HPI HPI Details: SHREYAS KATHLEEN, is a 67 F who presents to the office today for for outpatien t cardiovascular follow-up of her history of underlying CAD, non-ST segment elevation [place], paroxysmal atrial fibrillation, superimposed upon a history [...] PFSH Medical History Atherosclerotic heart disease of [place] coronary artery without angina pectoris (Chronic) History [...] stenosis Assessment AND Plan 1. Atherosclerosis of [place] coronary artery of [place] heart without angina pectoris I25.10 Mild Plan [...] be scheduled for an outpatient visit in [facility] 9 months unless needed sooner. Thank you for allowing me to participate in the care of your patient. Please don't hesitate to call if any issues arise. This note was generated using a voice Browsy system and there may be incorrect words, spelling or punctuation that were not noted when reviewing the office note prior to saving. Follow Up 9 Months Coding Level of Care Code Off glen rodríguez,kelly l 4 Diagnoses Atherosclerosis of [place] coronary artery of [place] heart without angina pectoris I25.10 [place] vs. transplanted heart: [place] heart Paroxysmal atrial fibrillation I48.0 Hyperlipidemia, u nspecified hyperlipidemia type E78.5 Hyperlipidemia type: unspecified Essential hypertension I10 Hypertension type: essential hypertension Long-term use of high-risk medication Z79.899 Coding Level of Care Code Off glen rodríguez,level 4 Diagnoses Atherosclerosis of [place] coronary artery of [place] heart without angina pectoris I25.10 [place] vs. transplanted heart: [place] heart Paroxysmal atrial fibrillat ion I48.0 Hyperlipidemia, unspecified hyperlipidemia type E78.5 Hyperlipidemia type: unspecified Essential hypertension I10 Hypertension type: essential hypertension Long-term use of high-risk medicatio n Z79.899 02/17/18 1530 <Electronically signed by Casey Fowler MD> Date Casey Fowler MD Cosigner Signature: Date _ (if applicable) CC: Elsa Chopra NP 14-Feb-2018 SCREENING MAMM (CAD), BILAT Result: Comments: See Note; NOTES: [facility] Imaging Services [address] [place] [address] SCREENING MAMM (CAD), BILAT MR#: [id number] Acct: [id number] Name: SHREYAS KATHLEEN Rep #: [id number] : 1950 F 67 From: Elias Finn MD PCP: Elsa Chopra NP Status: REG CLI Study: SCREENING MAMM (CAD), BILAT Date of Exam: 02/14/18 Exam# [id number] Ordering Dr: Elsa Chopra MAMMO GRAPHY - [...] [facility] days. Approximately 10% of breast cancers are not detected by mammography. A normal mammogram should not delay biopsy of a clinically suspicious abnormality. [id number] Elect ronically Signed: Elias Finn MD at 8:30 EDT Tel [phone], Service support , CC: Elsa Chopra NP Stave Cutter: Signed 21-Jan-2018 Dexa Bone Density Study Result: Comments: See Note; NOTES: [facility] Imaging Services [address] [place] [address] Dexa Bone Density Study MR#: [id number] Acct: [id number] Name: SHREYAS KATHLEEN Rep #: [id number] : 1950 F 67 From: Elias Finn MD PCP: Elsa Chopra NP Status: REG CLI Study: Dexa Bone Density Study Date of Exam: 01/21/18 Exam# [id number] Ordering Dr: Elsa hCopra STUDY: DUAL E NERGY X-RAY ABSORPTIOMETRY / [...] Elias Finn MD at 15:36 EDT Tel [phone], Service support , CC: Elsa Chopra NP Stave Cutter: Signed 10-Dec-2016 Hip 2-3 Views with Pelvis Result: Comments: See Note; NOTES: [facility] Imaging Services [address] [place] [address] Verdana 4d Hip 2-3 Views with Pelvis MR#: [id number] Acct: [id number] Name: SHREYAS KATHLEEN Keira Rep #: [id number] : 1950 F 66 From: Herve Jimenez MD PCP: Elsa Chopra Status: REG CLI Study: Hip 2-3 Views with Pelvis Date of Exam: 12/10/16 Exam# [id number] Ordering Dr: Elsa Chopra STUDY : X-RAY [...] FACR at 11:31 EDT , Service support [phone], CC: Elsa Chopra Stave Cutter: Signed 05-Jul-2016 Abdomen Complete Result: Comments: See Note; NOTES: [facility] Imaging Services [address] [place] [address] Verdana 4d Abdomen Complete MR#: [id number] Acct: [id number] Name: SHREYAS KATHLEEN Keira Rep #: [id number] : 1950 F 66 From: Elias Finn MD PCP: Elsa Chopra Status: REG CLI Study: Abdomen Complete Date of Exam: 07/05/16 Exam# [id number] Ordering Dr: Elsa Chopra STUDY: ABDOMINAL ULTRASOUND [...] Elias Finn MD at 9:35 EDT Tel [phone], Service support [phone], CC: Elsa Chopra Stave Cutter: Signed 05-Jul-2016 Abdomen Single View Result: Comments: See Note; NOTES: [facility] Imaging Services [address] [place] [address] Verdana 4d Abdomen Single View MR#: [id number] Acct: [id number] Name: SHREYAS KATHLEEN Rep #: [id number] : 1950 F 66 From: Elias Finn MD PCP: Elsa Chopra Status: REG CLI Study: Abdomen Single View Date of Exam: 07/05/16 Exam# [id number] Ordering Dr: Elsa Chopra STUDY: X-RA Y [...] of the L1 vertebrae. ORDER # : [id number] RAD/Abdomen Single View IMPRESSION: Moderate amount of fecal material is seen in the colon. Electronically Signed: Elias Finn MD at 10:34 EDT Tel [phone], Service sup port [phone], CC: Elsa Chopra Stave Cutter: Signed 18-May-2016 Bilat Scrn Digital AND CAD Result: Comments: See Note; NOTES: [facility] Imaging Services [address] [place] [address] Verdana 4d Bilat Scrn Digital AND CAD MR#: [id number] Acct: [id number] Name: JACINTO KATHLEEN Rep #: [id number] : 1950 F 65 From: Elias Finn MD PCP: Elsa Chopra Status: REG CLI Study: Bilat Scrn Digital AND CAD Date of Exam: 05/18/16 Exam# [id number] Ordering Dr: Elsa Chopra MAMMOGRAPHY - BILATERAL [...] biopsy of a clinically suspicious abnor mality. [id number] Electronically Signed: Elias Finn MD at 12:53 EDT Tel [phone], Service support [phone], CC: Elsa Chopra Stave Cutter: Signed 14-Feb-2016 Shoulder min 2 Views Result: Comments: See Note; NOTES: [facility] Imaging Services [address] [place] [address] Oscar 4d Shoulder min 2 Views MR#: [id number] Acct: [id number] Name: SHREYAS KATHLEEN Rep #: [id number] : 1950 F 65 From: Herve Jimenez MD PCP: Madeline Florez DO Status: REG CLI Study: Shoulder min 2 Views Date of Exam: 02/14/16 Exam# [id number] Ordering Dr: Pascale Boston DO STUDY: X-RAY [...] FACR at 14:50 EDT , Service support [phone], Fax RAD/Shoulder min 2 Views IMPRESSION: Bilateral of the acromioclavicular joint, otherwise normal x-ray examination of the shoulder. Electronically Signed: Herve Jimenez MD, FACR at 14:50 EDT , Service support [phone], CC: Pascale Boston DO; Madeline Florez DO Stave Cutter: Signed 21-Oct-2015 Spirometry (29669) Comments: mod restriction Result: 19-Sep-2015 Chest PA and Lateral Result: Comments: See Note; NOTES: [facility] Imaging Services [address] [place] [address] Verdana 4d Chest PA and Lateral MR#: [id number] Acct: [id number] Name: SHREYAS KATHLEEN Rep #: [id number] : 1950 F 65 From: Elias Finn MD PCP: Madeline Florez DO Status: REG CLI Study: Chest PA and Lateral Date of Exam: 09/19/15 Exam# [id number] Ordering Dr: Madeline Florez DO STUDY: X-RAY [...] Elias Finn MD at 13:58 EST Tel [phone], Service support [phone], RAD/Chest PA and Lateral IMPRESSION: Stable examination. No acute abnormality is seen. Electronically Doris d: Elias Finn MD at 13:58 EST Tel [phone], Service support [phone], CC: Madeline Florez DO Stave Cutter: Signed 25-Aug-2015 Spine Lumbar (Routine) Result: Comments: See Note; NOTES: [facility] Imaging Services [address] [place] [address] Verdana 4d Spine Lumbar (Routine) MR#: [id number] Acct: [id number] Name: SHREYAS MAJOR Rep #: [id number] : 1950 F 65 From: Herve Jimenez MD PCP: Madeline Florez DO Status: REG CLI Study: Spine Lumbar (Routine) Date of Exam: 08/25/15 Exam# [id number] Ordering Dr: ELIZABETH DE LEON M.D. STUDY: [...] FACR at 17:43 EST , Service support [phone], CC: ELIZABETH DE LEON M.D.; Madeline Florez DO Stave Cutter: Signed 25-Aug-2015 Spine Thoracic (Routine) Result: Comments: See Note; NOTES: [facility] Imaging Services [address] [place] [address] 4d Spine Thoracic (Routine) MR#: [id number] Acct: [id number] Name: SHREYAS SHARIF Keira Rep #: [id number] : 1950 F 65 From: Herve Jimenez MD PCP: Madeline Florez DO Status: REG CLI Study: Spine Thoracic (Routine) Date of Exam: 08/25/15 Exam# [id number] Ordering Dr: ELIZABETH RUIZ M.D. STUDY: MRI [...] FACR at 17:45 EST , Service support [phone], CC: ELIZABETH DE LEON M.D.; Komal Florez DO Stave Cutter: Signed 17-Aug-2015 Chest PA and Lateral Result: Comments: See Note; NOTES: [facility] Imaging Services [address] [place] [address] Verdana 4d Chest PA and Lateral MR#: [id number] Acct: [id number] Name: SHREYAS KATHLEEN Rep #: [id number] : 1950 F 65 From: Elias Finn MD PCP: Madeline Florez DO Status: REG CLI Study: Chest PA and Lateral Date of Exam: 08/17/15 Exam# [id number] Ordering Dr: Madeline Florez DO STUDY: X-RAY [...] Elias Finn MD at 11:09 EST Tel [phone], Service support [phone], Fax RAD/Chest PA and Lateral IMPRESSION: Residual changes persist in the right middle lobe and there has been some improvement. Further followup is recommended. Electr onically Signed: Elias Finn MD at 11:09 EST Tel [phone], Service support [phone], CC: Madeline Florez DO Stave Cutter: Signed 12-Aug-2015 Discharge Instruction Result: Comments: See Note; NOTES: [facility] Medical Records Department [address] [place] [address] Discharge Instruction 08/10/15 1702 MR#: [id number] Acct: [id number] Name: SHREYAS KATHLEEN Rep #: [id number] : 1950 65 From: Denny Bone MD [...] problems, contact your doctor. Call [facility] ([phone]) or report to the closest Emergency Room. Call 911 if necessary. 08/12/15 1502 <Elect ronically signed by Denny Bone MD> Date Denny Bone MD Cosigner Signature (If Indicated): Date CC: Madeline Florez DO 12-Aug-2015 Emergency Department Summary Result: Comments: See Note; NOTES: [facility] Medical Records Department [address] [place] [address] Emergency Department Summary MR#: [id number] Acct: [id number] Name: SHREYAS KATHLEEN Rep #: [id number] : 1950 65 From: Denny Bone MD [...] the patient had blood cultures obtained at [facility] and they were called to Dr. [...] Nacho Ramirez C: Madeline Bonilla MD T: [facility] JOB: [id number] 08/12/15 1502 <Electronically signed by Denny Bone MD> Date Denny Bone MD Cosigner Signature (If Indicated): Date ___ CC: Madeline Florez DO; Katelyn Arenas MD Date Dictated: 08/10/151708 Date Transcribed: 08/10/151708 Stave Cutter: Signed Social History Name Dates Details No [...] kg/m2 Body Surface Area Calculated 1.85 m2 85-Cje-945584:20 Temperature 97.8 f Comments: Method: Temporal Pulse [...] kg/m2 Body Surface Area Calculated 1.97 m2 03-Txp-254218:34 BP Systolic 130 mm[Hg] Comments: Patient Position: Sitting BP Diastolic 80 mm[Hg] Comments: Patient Position: Sitting 23-Avw-758517:03 Temperature 98 f Comments: Method: Temporal Pulse [...] Comments: Jun 19; PATIENT WAS FASTINGPERFORMED BY: Croak.itRobert Wood Johnson University HospitalPqxetf8894 [facility] [id number] (57261) AND (26962) Alb/Creat Ratio 266.9 {mg/g_creat} (Abnormal) Range: 0.0-30.0 Albumin, Urine 168.7 ug/mL (Normal) Creatinine, Urine 63.2 mg/dL (Normal) :00 Metabolic Panel, Comprehensive Comments: Jun 19; PATIENT WAS FASTINGPERFORMED BY: Croak.itRobert Wood Johnson University HospitalMaizvg4015 [facility] [id number] (86514) ALT (SGPT) 14 [iU]/L (Normal) Range: 0-32 [...] 8-27 Glucose 121 mg/dL (Abnormal) Range: 65-99 79-Ifp-01167:00 HGB A1C (45686) Comments: June 19; PATIENT WAS FASTINGPERFORMED BY: [facility]At[facility] [id number] Hemoglobin A1c 7.0 % (Abnormal) Range: 4.8-5.6 Comments: . Prediabetes: 5.7 - 6.4 Diabetes: >6.4 Glycemic control for adults with diabetes: <7.0 58-Gue-589218:33 ALKALINE PHOSPHATASE-ISOENZYM Comments: PATIENT NOT FASTINGPERFORMED BY: [facility]At[facility] [id number] (16263) Intestinal Frac.: 0 % (Normal) Range: 0-18 Bone Fraction: 27 % (Normal) Range: 14-68 Liver Fraction: 73 % (Normal) Range: 18-85 Alkaline Phosphatase 89 [iU]/L (Normal) Range: 39-117 64-Kfz-669287:33 CBC, Platelets & Auto Diff Comments: PATIENT NOT FASTINGPERFORMED BY: [facility]At[facility] [id number] (19070) Immature Grans (Abs) 0.0 {x10E3/uL} (Normal) Range: [...] 3.77-5.28 WBC 5.9 {x10E3/uL} (Normal) Range: 3.4-10.8 20-Tpi-929086:22 HgA1C , Office (24094) Comments: 7.3 HgA1C , Office 7.3 % (Abnormal) Range: 4.6 - 7.1 68-Srb-856498:22 Blood Glucose , Office (93979) Blood Glucose , Office 173 (Normal) 46-Wua-51648:40 Basic Metabolic Profile (BMP) Comments: SEND RESULTS OF BMP TO .[facility] [address] [place], [address] GAP 11 (Normal) Range: 5-15 CO2 27.0 [...] A.D.A. criteria.Please note revised GLUCOSE reference range otfgazngt49/02/2018. 66-Lrv-61674:40 Liver Profile Comments: SEND RESULTS OF BMP TO .[facility] [address] [place], [address] D BILI 0.09 mg/dL (Normal) Range: 0.00-0.30 T BILI 0.40 mg/dL (Normal) Range: 0.20-1.00 ALT 22 U/L (Normal) Range: 13-56 ALK P 103 U/L (Normal) Range: 45-117 AST 17 U/L (Normal) Range: 15-37 GLOB 4.0 g/dL (Normal) Range: 2.2-4.2 ALB 3.8 g/dL (Normal) Range: 3.2-5.0 T PROT 7.8 g/dL (Normal) Range: 6.4-8.2 98-Rpm-175466:41 CALCIFEDIOL (02868) Comments: PATIENT WAS FASTINGPERFORMED BY: LabCoRobert Wood Johnson University HospitalRkyjvu9665 [facility] [id number] Vitamin D, 25-Hydroxy 44.2 ng/mL (Normal) Range: 30.0-100.0 Comments: Vitamin D deficiency has been defined by the [place] of[place]icine and an Endocrine Society practice guideline as alevel of serum 25-OH vitamin D less than 20 ng/mL (1,2).The Endocrine Society went on to further define vitamin Dinsufficiency as a level between 21 and 29 ng/mL (2).1. IOM ([place] of Medicine). 2010. Dietary reference intakes for calcium and D. [place]: The National Academies Press.2. Jacinto MF, Eddy NOGUEIRA, Quintin JAVED, et al. Evaluation, treatment, and prevention of vitamin D deficiency: an Endocrine Society clinical practice guideline. JCEM. 2010; 96(7):1911-30. 42-Hzu-574271:41 METABOLIC PANEL, Comments: PATIENT WAS FASTINGPERFORMED BY: LabCoRobert Wood Johnson University HospitalDvxksi9347 [facility] [id number] Information: 299347,Z08389; OV 03/19 COMPREHENSIVE (79985) ALT (SGPT) 15 [iU]/L (Normal) Range: 0-32 [...] 8-27 Glucose 143 mg/dL (Abnormal) Range: 65-99 63-Tnx-633661:31 Blood Glucose , Office (71432) Blood Glucose , Office 211 (Normal) 25-Hds-996766:31 HgA1C , Office (64918) HgA1C , Office 6.8 % (Normal) Range: 4.6 - 7.1 90-Ilo-491697:33 CBC, Platelets & Auto Diff Comments: PATIENT WAS FASTINGPERFORMED BY: LabCoRobert Wood Johnson University HospitalHxmnem6097 [facility] [id number] (19487) Immature Grans (Abs) 0.0 {x10E3/uL} (Normal) Range: [...] 3.77-5.28 WBC 7.7 {x10E3/uL} (Normal) Range: 3.4-10.8 96-Umv-006950:33 Lipid Panel (22522) Comments: PATIENT WAS FASTINGPERFORMED BY: [employer] Dkbhwx9909 [facility] [id number] LDL/HDL Ratio 0.9 {ratio} (Normal) Range: 0.0-3.2 [...] Panel, Comprehensive Comments: PATIENT WAS FASTINGPERFORMED BY: [employer] Energylin6370 [facility] [id number] (25029) ALT (SGPT) 18 [iU]/L (Normal) Range: 0-32 [...] CREATININE RATIO Comments: PATIENT WAS FASTINGPERFORMED BY: [facility] FundAt[facility] [id number] (55341) AND (30968) Alb/Creat Ratio 225.5 {mg/g_creat} (Abnormal) Range: 0.0-30.0 Albumin, Urine 112.5 ug/mL (Normal) Creatinine, Urine 49.9 mg/dL (Normal) :33 URINALYSIS (47273) Comments: PATIENT WAS FASTINGPERFORMED BY: [facility] FundAt[facility] [id number] Microscopic Examination See below: (Normal) Comments: Microscopic was indicated and was performed. Nitrite, Urine Negative (Normal) Urobilinogen,Semi-Qn 0.2 mg/dL (Normal) Range: 0.2-1.0 Bilirubin Negative (Normal) Occult Blood Negative (Normal) Ketones Negative (Normal) Glucose Negative (Normal) Protein Trace (Normal) WBC Esterase 2+ (Abnormal) Appearance Clear (Normal) Urine-Color Yellow (Normal) pH 6.5 (Normal) Range: 5.0-7.5 Specific Caspar 1.014 (Normal) Range: 1.005-1.030 :33 TSH (51707) Comments: PATIENT WAS FASTINGPERFORMED BY: [facility] FundAt[facility] [id number] TSH 3.870 {uIU/mL} (Normal) Range: 0.450-4.500 60-Iyw-088307:33 Microscopic Examination Comments: PATIENT WAS FASTINGPERFORMED BY: [facility] FundAt[facility] [id number] Bacteria Few (Normal) Mucus Threads Present (Normal) Cast Type Hyaline casts (Normal) Casts Present {/lpf} (Abnormal) Epithelial Cells (non renal) >10 {/hpf} (Abnormal) Range: 0 - 10 RBC 0-2 {/hpf} (Normal) Range: 0 - 2 WBC 11-30 {/hpf} (Abnormal) Range: 0 - 5 :57 HgA1C , Office (60227) Comments: 6.6 HgA1C , Office 6.6 % (Normal) Range: 4.6 - 7.1 :57 Blood Glucose , Office (47945) Blood Glucose , Office 211 (Normal) :53 HEPATIC FUNCTION PANEL Comments: PATIENT NOT FASTINGPERFORMED BY: [facility]At[facility] [id number] (63834) ALT (SGPT) 13 [iU]/L (Normal) Range: 0-32 AST (SGOT) 17 [iU]/L (Normal) Range: 0-40 Alkaline Phosphatase, S 89 [iU]/L (Normal) Range: 39-117 Bilirubin, Direct 0.08 mg/dL (Normal) Range: 0.00-0.40 Bilirubin, Total <0.2 mg/dL (Normal) Range: 0.0-1.2 Albumin, Serum 4.2 g/dL (Normal) Range: 3.6-4.8 Protein, Total, Serum 6.8 g/dL (Normal) Range: 6.0-8.5 :53 GYION-NYVAXQABTHK-GZAKZ (22874) Comments: PATIENT NOT FASTINGPERFORMED BY: [employer]70 Everyday SolutionsAt[facility] Health [facility] [id number] AFP, Serum, Tumor Marker 2.6 ng/mL (Normal) Range: 0.0-8.3 Comments: Rosmery ECLIA methodology :53 ALKALINE PHOSPHATASE-ISOENZYM Comments: PATIENT NOT FASTINGPERFORMED BY: [facility] FundAt[facility] [id number] (72928) Intestinal Frac.: 5 % (Normal) Range: 0-18 Bone Fraction: 24 % (Normal) Range: 14-68 Liver Fraction: 71 % (Normal) Range: 18-85 24-Cyq-011391:11 ALKALINE PHOSPHATASE-ISOENZYM Comments: PATIENT NOT FASTINGPERFORMED BY: [facility] Okmobl[address] RoadDublin [place] [id number] ([address]) Intestinal Frac.: 3 % (Normal) Range: 0-18 Bone Fraction: 19 % (Normal) Range: 14-68 Liver Fraction: 78 % (Normal) Range: 18-85 Alkaline Phosphatase, S 122 [iU]/L (Abnormal) Range: 39-117 44-Qyo-200706:11 CALCIFEDIOL (11906) Comments: PATIENT NOT FASTINGPERFORMED BY: [facility] Opyrhh75[address] RoadDublin [place] [id number] Vitamin D, 25-Hydroxy 37.5 ng/mL (Normal) Range: 30.0-100.0 Comments: Vitamin D deficiency has been defined by the [place] ofMedicine and an Endocrine Society practice guideline as alevel of serum 25-OH vitamin D less than 20 ng/mL (1,2).The Endocrine Society went on to further define vitamin Dinsufficiency as a level between 21 and 29 ng/mL (2).1. IOM ([place] of Medicine). 2010. Dietary reference intakes for calcium and D. [place]: The National Academies Press.2. Jacinto MF, Eddy NC, Anay-Gonzalo JAVED, et al. Evaluation, treatment, and prevention of vitamin D deficiency: an Endocrine Society clinical practice guideline. JCEM. 2010; 96(7):1911-30. 66-Smm-612312:11 TSH (36150) Comments: PATIENT NOT FASTINGPERFORMED BY: [facility] Raxajo[address] RoadDublin [place] [id number] TSH 1.620 {uIU/mL} (Normal) Range: 0.450-4.500 65-Qlc-181639:11 T4, FREE (THYROXINE) (68825) Comments: PATIENT NOT FASTINGPERFORMED BY: [facility] Sptsht[address] RoadDublin [place] [id number] T4,Free(Direct) 1.00 ng/dL (Normal) Range: 0.82-1.77 84-Mwz-432355:11 T3, FREE (TRIDOTHYRONINE) (70917) Comments: PATIENT NOT FASTINGPERFORMED BY: [facility] Kiagoo7164 [facility] [id number] Triiodothyronine,Free,Serum 2.5 pg/mL (Normal) Range: 2.0-4.4 :08 HgA1C , Office (57339) HgA1C , Office 7.4 % (Abnormal) Range: 4.6 - 7.1 :08 Blood Glucose , Office (95140) Blood Glucose , Office 190 (Normal) :30 Lipid Profile Comments: Order Date: 12/12/16Order Info: 0788-1 - *Hepatic Function PanelOrder Info: 70265-4 - *Lipid Profile CC PCPComments: 12 hours fasting, may have water.Comments: 6 months / pre next [facility]WUniversity [facility] G[address]raliepi[address] [facility] [address] [place], [place], [address] VLDL 46 mg/dL (Abnormal) Range: 5-40 LDL [...] Info: 0788-1 - *Hepatic Function PanelOrder Info: 23788-8 - *Lipid Profile CC PCPComments: 12 hours fasting, may have water.Comments: 6 months / pre next visitWUniversity [facility] [address] [place], [place], [id number] D BILI 0.11 mg/dL (Normal) Range: 0.00-0.30 T BILI 0.40 mg/dL (Normal) Range: 0.20-1.00 ALT 19 U/L (Normal) Range: 12-78 ALK P 132 U/L (Abnormal) Range: 45-117 AST 15 U/L (Normal) Range: 15-37 GLOB 4.3 g/dL (Abnormal) Range: 2.3-3.5 ALB 3.5 g/dL (Normal) Range: 3.4-5.0 T PROT 7.8 g/dL (Normal) Range: 6.4-8.2 5-Xsw-450721:55 TSH (THYROID STIMULATING Comments: Week of Apr 09; PATIENT NOT FASTINGPERFORMED BY: [facility] Develop[facility] FundAt[facility] [id number] HORMONE) (68783) TSH 0.728 {uIU/mL} (Normal) Range: 0.450-4.500 :55 HgA1C , Office (93354) HgA1C , Office 6.9 % (Normal) Range: 4.6 - 7.1 :55 Blood Glucose , Office (16262) Blood Glucose , Office 143 (Normal) 62-Qzi-872335:11 Microscopic Examination Comments: PATIENT WAS FASTINGPERFORMED BY: Domain Developers FundAtrium Health [facility] [id number] Bacteria Few (Normal) Mucus Threads Present (Normal) Cast Type Hyaline casts (Normal) Casts Present {/lpf} (Abnormal) Epithelial Cells (non renal) 0-10 {/hpf} (Normal) Range: 0 - 10 RBC 0-2 {/hpf} (Normal) Range: 0 - 2 WBC 6-10 {/hpf} (Abnormal) Range: 0 - 5 05-Pyv-401124:11 URINALYSIS, W/ MICRO (34307) Comments: January 2017; PATIENT WAS FASTINGPERFORMED BY: Domain Developers FundAtrium Health [facility] [id number] Microscopic Examination See below: (Normal) Comments: Microscopic was indicated and was performed. Nitrite, Urine Negative (Normal) Urobilinogen,Semi-Qn 0.2 mg/dL (Normal) Range: 0.2-1.0 Bilirubin Negative (Normal) Occult Blood Negative (Normal) Ketones Negative (Normal) Glucose Trace (Abnormal) Protein 1+ (Abnormal) WBC Esterase 1+ (Abnormal) Appearance Clear (Normal) Urine-Color Yellow (Normal) pH 6.5 (Normal) Range: 5.0-7.5 Specific Caspar 1.016 (Normal) Range: 1.005-1.030 67-Yot-277350:11 MICROALBUMIN: CREATININE RATIO Comments: January 2017; PATIENT WAS FASTINGPERFORMED BY: Croak.it Sjjsvj6271 Santana [facility] HospitalKevstel GroupAtrium Health [facility] [id number] (94389) AND (35044) Microalb/Creat Ratio 208.2 {mg/g_creat} (Abnormal) Range: 0.0-30.0 Microalbumin, Urine 182.2 ug/mL (Normal) Creatinine, Urine 87.5 mg/dL (Normal) 31-Lsr-268112:11 CBC, Platelets & Auto Diff Comments: January 2017; PATIENT WAS FASTINGPERFORMED BY: USDS Vjczra0870 Everyday SolutionsAt[facility] [id number] (31011) Immature Grans (Abs) 0.0 {x10E3/uL} (Normal) Range: [...] 3.77-5.28 WBC 5.6 {x10E3/uL} (Normal) Range: 3.4-10.8 30-Nox-410643:11 Metabolic Panel, Comprehensive Comments: January 2017; PATIENT WAS FASTINGPERFORMED BY: LabCoRobert Wood Johnson University HospitalZsyzqs3495 [facility] [id number] (48590) ALT (SGPT) 13 [iU]/L (Normal) Range: 0-32 [...] Glucose, Serum 120 mg/dL (Abnormal) Range: 65-99 61-Sxq-242442:11 TSH (THYROID STIMULATING Comments: January 2017; PATIENT WAS FASTINGPERFORMED BY: [facility] Emukzr1365 [facility] [id number] HORMONE) (03844) TSH 0.982 {uIU/mL} (Normal) Range: 0.450-4.500 1-Bfn-662999:02 Lipid Profile Comments: Order Date: 12/04/16Order Info: [id number] - *Hepatic Function PanelOrder Date: 12/04/16Order Info: [id number] - *Lipid Profile CC PCPComments: 12 hours fasting, may have water.[place] [address] [place], [place], [id number] VLDL 36 mg/dL (Normal) Range: 5-40 LDL [...] 200-240 mg/dL Borderline >240 mg/dL High Risk 6-Hvq-291110:02 Liver Profile Comments: Order Date: 12/04/16Order Info: [id number] - *Hepatic Function PanelOrder Date: 12/04/16Order Info: [id number] - *Lipid Profile CC PCPComments: 12 hours fasting, may have water.[place] [address] [place], [place], [address] D BILI 0.07 mg/dL (Normal) Range: 0.00-0.30 T BILI 0.30 mg/dL (Normal) Range: 0.20-1.00 ALT 21 U/L (Normal) Range: 12-78 ALK P 112 U/L (Normal) Range: 45-117 AST 19 U/L (Normal) Range: 15-37 GLOB 3.8 g/dL (Abnormal) Range: 2.3-3.5 ALB 3.4 g/dL (Normal) Range: 3.4-5.0 T PROT 7.2 g/dL (Normal) Range: 6.4-8.2 21-Zud-519300:29 URINE RANDELL CULTURE-ZEINAB COL Comments: PATIENT NOT FASTINGPERFORMED BY: USDSPeak Behavioral Health ServicesGjghpc4646 [facility] [id number] Information: SRC:UC COUNT (45225) Result 1 MUG (Normal) Comments: Mixed urogenital flora25,000-50,000 colony forming units per mL Urine Final report (Normal) Culture,Comprehensive 66-Shn-919516:53 Urinalysis, Office (02810) UA - LEUKOCYTE ESTERASE Small (Normal) UA - NITRITE Negative (Normal) URINE UROBILINGN ZEINAB TIMED Normal mg/dL (Normal) UA - PROTEIN Negative mg/dL (Normal) UA - PH 7 (Normal) UA - BLOOD Negative (Normal) UA - SPECIFIC GRAVITY 1.020 (Normal) UA - KETONES Negative mg/dL (Normal) UA - BILIRUBIN Small (Normal) UA - GLUCOSE Negative (Normal) 55-Baz-815294:51 Blood Glucose , Office (27922) Comments: 169 Blood Glucose , Office 169 (Normal) :52 HgA1C , Office (65358) Comments: 7.0 HgA1C , Office 7.0 % (Normal) Range: 4.6 - 7.1 :22 URINE RANDELL CULTURE-IDENTIFICATN Comments: PATIENT NOT FASTINGPERFORMED BY: LabMymichigan Medical Center Gladwin6370 [facility] [id number] Information: SRC:UC (55583) Result 1 MUG (Normal) Comments: Mixed urogenital flora10,000-25,000 colony forming units per mL Urine Final report (Normal) Culture,Comprehensive 44-Lcw-397298:05 Urinalysis, Office (05549) UA - LEUKOCYTE ESTERASE Negative (Normal) UA - NITRITE Negative (Normal) URINE UROBILINGN ZEINAB TIMED Normal mg/dL (Normal) UA - PROTEIN 30 mg/dL (Normal) UA - PH 6 (Abnormal) UA - BLOOD non-hemolyzed trace (Normal) UA - SPECIFIC GRAVITY 1.020 (Normal) UA - KETONES Negative mg/dL (Normal) UA - BILIRUBIN Negative (Normal) UA - GLUCOSE 100 (Abnormal) :42 HgA1C , Office (59916) HgA1C , Office 6.2 % (Normal) Range: 4.6 - 7.1 :42 Blood Glucose , Office (92251) Blood Glucose , Office 137 (Normal) :01 TSH (THYROID STIMULATING Comments: PATIENT NOT FASTINGPERFORMED BY: USDS FastDue [facility] [id number] HORMONE) (59495) TSH 1.820 {uIU/mL} (Normal) Range: 0.450-4.500 :03 HEPATIC FUNCTION PANEL Comments: PATIENT NOT FASTINGPERFORMED BY: [employer]ak[employer]it [employer] [facility] [id number] (17823) ALT (SGPT) 15 [iU]/L (Normal) Range: 0-32 AST (SGOT) 23 [iU]/L (Normal) Range: 0-40 Alkaline Phosphatase, S 95 [iU]/L (Normal) Range: 39-117 Bilirubin, Direct 0.12 mg/dL (Normal) Range: 0.00-0.40 Bilirubin, Total 0.3 mg/dL (Normal) Range: 0.0-1.2 Albumin, Serum 4.3 g/dL (Normal) Range: 3.6-4.8 Protein, Total, Serum 7.3 g/dL (Normal) Range: 6.0-8.5 :03 JVMZD-CTBRRWHVBBP-GENKN (37940) Comments: PATIENT NOT FASTINGPERFORMED BY: [employer] Cjjxif0543 [facility] [id number] AFP, Serum, Tumor Marker 2.8 ng/mL (Normal) Range: 0.0-8.3 Comments: Rosmery ECLIA methodology :03 HEPATITIS PANEL (16263) Comments: PATIENT NOT FASTINGPERFORMED BY: USDS [employer]Due [facility] [id number] Hep C Virus Ab <0.1 {s/co_ratio} (Normal) Range: 0.0-0.9 Comments: Negative: < 0.8 Indeterminate: 0.8 - 0.9 Positive: > 0.9 . The CDC recommends that a positive HCV antibody result be followed up with a HCV Nucleic Acid Amplification test (386979). Hep B Core Ab, IgM Negative (Normal) HBsAg Screen Negative (Normal) Hep A Ab, IgM Negative (Normal) :58 CBC W/Diff, Automated Comments: CBCD [facility]Nor[facility] [place] [address] [place], [address] Absolute Lymph 1.84 {X10_3/ul} (Normal) Range: 0.83-4.51 [...] Comments: Order Date: 05/14/16Interface Comments: Reason:Order Date: 05/14/16[facility] [address] [place] [place], [address] T4 THYROXIN 11.6 ug/dL (Normal) Range: 4.8-13.9 :58 Thyroid Stim Hormone (TSH) Comments: Order Date: 05/14/16Interface Comments: Reason:Order Date: 05/14/16[facility] [address] [place], [address] TSH 1.96 {uIU/mL} (Normal) Range: 0.358-3.74 :11 Urinalysis, Office (43289) UA - LEUKOCYTE ESTERASE Small (Normal) UA - NITRITE Negative (Normal) URINE UROBILINGN ZEINAB TIMED Normal mg/dL (Normal) UA - PROTEIN 30 mg/dL (Normal) UA - PH 6 (Abnormal) UA - BLOOD Negative (Normal) UA - SPECIFIC GRAVITY 1.010 (Normal) UA - KETONES Negative mg/dL (Normal) UA - BILIRUBIN Negative (Normal) UA - GLUCOSE Negative (Normal) :50 Basic Metabolic Profile (BMP) Comments: [facility] [address] [place], [address] GAP 7 (Normal) Range: 5-15 CO2 33.0 [...] 100 mg/dL (Normal) Range: 70-110 :48 MAGNESIUM (70925) Comments: PATIENT NOT FASTINGPERFORMED BY: LabCoRobert Wood Johnson University HospitalMxigft6398 [facility] [id number] Magnesium, Serum 1.6 mg/dL (Normal) Range: 1.6-2.3 :48 TSH (THYROID STIMULATING Comments: PATIENT NOT FASTINGPERFORMED BY: LabCo Nspktd0588 [facility] [id number] HORMONE) (06576) TSH 6.340 {uIU/mL} (Abnormal) Range: 0.450-4.500 :48 URIC ACID BLOOD (85462) Comments: PATIENT NOT FASTINGPERFORMED BY: LabCoPeak Behavioral Health ServicesIalxny4870 [facility] [id number] Uric Acid, Serum 6.1 mg/dL (Normal) Range: 2.5-7.1 Comments: Therapeutic target for gout patients: <6.0 :09 Blood Glucose , Office (23153) Blood Glucose , Office 116 (Normal) :09 HgA1C , Office (37396) HgA1C , Office 6.7 % (Normal) Range: 4.6 - 7.1 :19 Basic Metabolic Profile (BMP) Comments: Order Date: 03/12/16OV Order #: [id number] Medical [facility] [address]ms[address] [place], [address] GAP 7 (Normal) Range: 5-15 CO2 29.0 [...] 7-18 GLU 107 mg/dL (Normal) Range: 70-110 71-Lxh-730191:19 T4 Total, Thyroxin Comments: Order Date: 03/12/16 Order #: [id number] Harrison Community Hospital [address] [place], [place], [address] T4 THYROXIN 9.4 ug/dL (Normal) Range: 4.8-13.9 :19 Thyroid Stim Hormone (TSH) Comments: Order Date: 03/12/16 Order #: [id number] Harrison Community Hospital [address]wynog[address] [place], [place], [address] TSH 5.44 {uIU/mL} (Abnormal) Range: 0.358-3.74 :49 Aerobic Bacterial Culture Comments: PATIENT NOT FASTINGPERFORMED BY: [facility] Auiknk8138 [facility] [id number] Information: RT AXILLA Result 1 MRSA (Abnormal) [...] (Normal) Comments: PATIENT NOT FASTINGPERFORMED BY: [facility] Wxyeap5315 [place] [id number] Information: NASAL 5:49 Culture 69-Guc-041160:20 Basic Metabolic Profile (BMP) Comments: [facility] [address] [place], [place], [address] GAP 7 (Normal) Range: 5-15 CO2 29.0 [...] A.D.A. criteria. :02 Blood Glucose , Office (69744) Blood Glucose , Office 137 (Normal) :54 Urine Drug Screen (Office - WNL (Normal) Comments: pos for oxy, all else neg Urine Drug Screen 6 Panel) Comments: All negative except Oxy (30150) :52 HgA1C , Office (15443) Comments: 7.3 HgA1C , Office 7.3 % (Abnormal) Range: 4.6 - 7.1 6-Hsk-535521:43 Basic Metabolic Profile (BMP) Comments: DR URBINA ORDERED BMPDR MALCOLM ORDERED LIVER LIPIDWSelect Medical [facility]Health [facility] Ryjtrigonm[address] [place], [address] GAP 3 (Abnormal) Range: 5-15 CO2 33.0 mmol/L (Abnormal) Range: 21.0-32.0 CL 102 mmol/L (Normal) Range: 98-107 K 3.4 mmol/L (Abnormal) Range: 3.5-5.1 Comments: ADDENDA: Denisse at [facility] aware of potassium level NA 138 [...] 7-18 GLU 101 mg/dL (Normal) Range: 70-110 4-Eit-331063:43 Lipid Profile Comments: DR URBINA ORDERED BMPDR MOODISPAW ORDERED LIVER LIPIDWvumedicine Harrison Community Hospital [address]lgwr[address] [place], [address] VLDL 26 mg/dL (Normal) Range: [...] 200-240 mg/dL Borderline >240 mg/dL High Risk 3-Ayr-921496:43 Liver Profile Comments: DR URBINA ORDERED BMPDR MOODISPAW ORDERED LIVER LIPIDWvumedicine Harrison Community Hospital Aj[address]nmtjta[address] [place], [address] D BILI 0.14 mg/dL (Normal) Range: 0.00-0.30 T BILI 0.40 mg/dL (Normal) Range: 0.20-1.00 ALT 16 U/L (Normal) Range: 12-78 ALK P 112 U/L (Normal) Range: 50-136 AST 19 U/L (Normal) Range: 15-37 GLOB 3.9 g/dL (Abnormal) Range: 2.3-3.5 ALB 3.0 g/dL (Abnormal) Range: 3.4-5.0 T PROT 6.9 g/dL (Normal) Range: 6.4-8.2 :02 Blood Glucose , Office (93601) Blood Glucose , Office 160 (Normal) :37 HgA1C , Office (92862) Comments: 7.2 HgA1C , Office 7.2 % (Abnormal) Range: 4.6 - 7.1 :24 MRSA Culture (11542) Comments: [facility] [address] [place], [place], [address] MRSA RESULT Negative (Normal) :59 Metabolic Panel, Basic Comments: send to Dr.Masroor Urbina; PATIENT NOT FASTINGPERFORMED BY: LabCoRobert Wood Johnson University HospitalJecbvc6223 [facility] [id number] Information: [id number] (97693) Calcium, Serum 10.7 mg/dL (Abnormal) Range: 8.7-10.3 [...] Glucose, Serum 182 mg/dL (Abnormal) Range: 65-99 0-Xri-136131:09 MRSA Culture (08777) Comments: [facility] [address] [place], [address] MRSA RESULT POSITIVE (Abnormal) :39 Lipid Profile Comments: [facility] [address] [place], [address] VLDL 23 mg/dL (Normal) Range: 5-40 LDL [...] mg/dL High Risk :39 Liver Profile Comments: [facility] [address] [place], [address] ; non-emergent and handled by [...] Range: 6.4-8.2 :39 T4 Total, Thyroxin Comments: [place] [address] [place], [address] T4 THYROXIN 10.9 ug/dL (Normal) Range: 4.8-13.9 :39 Thyroid Stim Hormone (TSH) Comments: [facility] [address], [address] TSH 3.63 {uIU/mL} (Normal) Range: 0.358-3.74 4-Phq-578293:13 LIPID PANEL (40689) Comments: PATIENT WAS FASTINGPERFORMED BY: [facility] Gladwin6370 [facility] [id number] LDL/HDL Ratio 1.2 {ratio_units} (Normal) Range: 0.0-3.2 [...] Cholesterol, Total 160 mg/dL (Normal) Range: 100-199 8-Qay-422249:13 CBC W/AUTO DIFF WBC Comments: PATIENT WAS FASTINGPERFORMED BY: [facility] Gladwin6370 [facility] [id number] Information: [id number] (27223) Immature Grans (Abs) 0.0 {x10E3/uL} (Normal) Range: [...] 3.77-5.28 WBC 4.5 {x10E3/uL} (Normal) Range: 3.4-10.8 4-Xmf-506219:13 METABOLIC PANEL, COMPREHENSIVE Comments: PATIENT WAS FASTINGPERFORMED BY: LabCoRobert Wood Johnson University HospitalTpddtz3827 [facility] [id number] (80381) ALT (SGPT) 8 [iU]/L (Normal) Range: 0-32 [...] Glucose, Serum 109 mg/dL (Abnormal) Range: 65-99 0-Fkp-242917:15 Basic Metabolic Profile (BMP) Comments: [facility] [address] [place], [place], [address] GAP 7 (Normal) Range: 5-15 CO2 30.0 [...] 200 mg/dLsuggests DIABETES MELLITUS per A.D.A. criteria. 7-Lwa-713728:15 CBC W/Diff, Automated Comments: [facility] [address] [place], [place], [address] Absolute Lymph 0.95 {X10_3/ul} (Normal) Range: 0.83-4.51 [...] K/mm3 (Normal) Range: 4.4-11.0 :31 LIPID PANEL (35095) Comments: PATIENT WAS FASTINGPERFORMED BY: LabCoRobert Wood Johnson University HospitalGdtsyk1287 [facility] [id number]; non-emergent till apt LDL/HDL Ratio 1.6 {ratio_units} [...] Cholesterol, Total 219 mg/dL (Abnormal) Range: 100-199 12-Hck-572419:31 CBC with auto diff Comments: PATIENT WAS FASTINGPERFORMED BY: LabCoRobert Wood Johnson University HospitalIrelpi7016 [facility] [id number] Information: [id number] (33303) Immature Grans (Abs) 0.0 {x10E3/uL} (Normal) Range: [...] CREATININE RATIO Comments: PATIENT WAS FASTINGPERFORMED BY: LabCoRobert Wood Johnson University HospitalAjlnsv6061 [facility] [id number] (18872) AND (93676) Microalb/Creat Ratio 93.7 {mg/g_creat} (Abnormal) Range: 0.0-30.0 Microalbumin, Urine 196.4 ug/mL (Abnormal) Range: 0.0-17.0 Creatinine, Urine 209.7 mg/dL (Normal) Range: 15.0-278.0 :31 METABOLIC PANEL, COMPREHENSIVE Comments: PATIENT WAS FASTINGPERFORMED BY: blogTV6370 [facility] [id number] (48433) ALT (SGPT) 20 [iU]/L (Normal) Range: 0-32 [...] Glucose, Serum 120 mg/dL (Abnormal) Range: 65-99 56-Ara-207698:31 Hemoglobin Glyclated (HGB A1C) Comments: PATIENT WAS FASTINGPERFORMED BY: Printland70 [facility] [id number] (38930) Hemoglobin A1c 7.6 % (Abnormal) Range: 4.8-5.6 Comments: . Pre-diabetes: 5.7 - 6.4 Diabetes: >6.4 Glycemic control for adults with diabetes: <7.0 72-Ugz-157248:30 Urinalysis, Complete Comments: Order Date: 07/18/15How was Urine Obtained? CLEAN [facility] [address] [place], [place], [address] MUCUS, URINE 0 SEEN {/hpf} (Normal) BACTERIA [...] (Abnormal) CLARITY Clear (Normal) COLOR Yellow (Normal) 44-Zmf-376263:43 CBC W/Diff, Automated Comments: [facility] [address] [place], [place], [address] PATH REV May foll (Normal) SMEAR COMMENT [...] 4.2-5.4 WBC 15.1 K/mm3 (Abnormal) Range: 4.4-11.0 67-Ynn-840245:43 Comprehensive Metabolic Profil Comments: [facility] [address]uempu[address] [place], [place], [address] GAP 8 (Normal) Range: 5-15 CO2 33.0 [...] Comments: To be drawn 6H after initial specimenWSelect Medical [facility]Health [facility] [address]raqpb[address] [place], [place], [address] LACTIC ACID 1.7 mmol/L (Normal) Range: 0.4-2.0 :43 Magnesium Comments: [facility] [address] [place], [place], [address](819) MG 1.3 mg/dL (Abnormal) Range: 1.8-2.4 :43 Partial Thromboplast Time Comments: [facility] [address] [place], [place], [phone] PTT 31.4 s (Normal) Range: 24.1-36.2 :43 Phosphorus Comments: [facility] [address] [place], [address] PHOS 1.0 mg/dL (Abnormal) Range: 2.5-4.9 Comments: Critical Result(s) Called at: 17:06:16 07/18/2015 by:Staecy ibarra rn 19-Nzg-856573:43 Prothrombin Time w/INR Comments: [facility] [address] [place], [place], [address](426) INR 0.9 (Normal) PROTIME 12.8 s (Normal) [...] with abnormal findings in adult : Reviewed Web Press Operator Apprentice Letter Indication: Encounter for annual general medical [...] - Strool Based DNA Test, CRC SCREEN (62792)Indication: Encounter for screening for malignant neoplasm of colon (Renamed from Special screening for malignant neoplasms, colon) On: 58-Atf-305523:05 Request FECAL OCCULT- Tubes sent home (78144)Indication: Encounter for screening for malignant neoplasm of colon (Renamed from Special screening for malignant neoplasms, colon) On: 03-Grf-137990:09 Request Lipid Panel (22016)Indication: Diabetes mellitus type 2, insulin dependent On: 00-Eio-226079:08 Request Comments: around January Metabolic Panel, Comprehensive (23433)Indication: Diabetes mellitus type 2, insulin dependent On: 42-Abd-217472:08 Request Comments: around January CBC, Platelets & Auto Diff (29783)Indication: Diabetes mellitus type 2, insulin dependent On: 46-Qko-356327:08 Request Comments: around January TSH (76158)Indication: Diabetes mellitus type 2, insulin dependent On: 15-Rtg-680356:08 Request Comments: around January Rapid Flu (51090 x 2)Indication: Unspecified Diagnosis On: 57-Dua-61291:33 Request CBC & PLATELETS (AUTO) (15872)Indication: Abdominal pain On: 2-Czg-800002:57 Request CULTURE, NOSE (92749)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 On: :31 Request Comments: check for MRSA MRSA Culture (86572)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 On: :23 Request Comments: rt axila HgA1C , Office (73161)Indication: Diabetes mellitus type 2, insulin dependent On: 67-Cfd-541526:21 Request Urinalysis, Office (21267)Indication: History of MRSA infection On: 14-Uae-216911:42 Request Hemoglobin Glyclated (HGB A1C) (96917)Indication: Diabetes mellitus type 2, uncontrolled On: 96-Yul-871233:46 Request MICROALBUMIN: CREATININE RATIO (40202) AND (98137)Indication: Hypertensive heart disease without heart failure On: 97-Tgc-982763:46 Request Planned Encounters Medical; 3 Month FU - On: 28-Jul-2018 13:30 Comprehensive Internal Medicine Elsa Chopra CNP, CNP, Mary E Planned Procedures Overnight Pulse OX (83113)By: On: 30-Jun-2018 Intent Lee Ann Schafer DO SPIROMETRY PERFORMED (26724)By: On: 25-Jun-2018 Intent Visit, Nurse SPIROMETRY PERFORMED (34964)By: On: 25-Jun-2018 Intent Visit, Nurse SIX MINUTE WALK TEST (97529)By: On: 25-Jun-2018 Intent Visit, Nurse Flu Vaccine (Quadrivalent) 06335Fi: On: 20-May-2018 Intent Karly Chandra DEXA SCAN AXIAL SKELETON (84005)By: On: 18-Dec-2017 Intent Elsa Chopra CNP, CNP, Mary E SCREENING DIGITAL TOMOSYNTHESIS OF On: 18-Dec-2017 Intent BREAST (04276)By: Elsa Chopra CNP, CNP, Mary E Flu Vaccine (Quadrivalent) 80124St: On: 11-Jun-2017 Intent Tatianaabelardomickey MCKINLEYElsa Tatianaabelardomickey MCKINLEY [place] Comments: InfluenzaLot #[id number]-L dltd, IMDose prefilled syringeVIS and ABN signedgiven by:GENARO blackwood PHYSICAL THERAPY TREATMENT On: 11-Dec-2016 Intent (14143)By: Adelita Doshi LPN PHYSICAL THERAPY EVALUATION On: 11-Dec-2016 Intent (29484)By: Elsa Chopra CNP, CNP [place] Toradol Injection, 30 mg On: 10-Dec-2016 Intent ([id number])By: Elsa Chopra CNP, CNP [place] Radiology - Hip - RightBy: Nav On: 10-Dec-2016 Intent ARLEN OneliaMarly Chopra CNP [place] Aerosol Treatment (90057)By: Tico On: 16-Oct-2016 Intent Adelita LAM Flu Vaccine (Quadrivalent) 64027Lc: On: 11-Jul-2016 Intent Elsa Chopra CNP, CNP [place] Comments: FLUlot: [id number]:01/16site:Lt deltoidroute:IMdose:.5mlDEMICK, [place] Ultrasound - Abdomen CompleteBy: On: 03-Jul-2016 Intent Elsa Chopra CNP, CNP [place] Radiology - KUBBy: Elsa Chopra CNP On: 03-Jul-2016 Elsa Youssef CNP DRAIN/INJECT SMALL JOINT OR BURSA On: 18-May-2016 Intent ()By: Elsa Chopra CNP Comments: to left wrist joint 1/2 cc kenalog, 1/2 cc marcaine. Kenalog lot #[id number] exp Marcain lot [id number] ex Elsa MCKINLEY MAMMOGRAM, SCREENING, BOTH BREAST On: 11-May-2016 Intent (30529)By: Elsa Chopra CNP, CNP, Mary E Radiology [...] mellitus without complication) : DISCONTINUED - URINALYSIS (42787) Indication: Diabetes mellitus type II, controlled, with no complications (Renamed from Controlled type 2 diabetes mellitus without complication) CKD (chronic kidney disease), stage III : DISCONTINUED - MICROALBUMIN: CREATININE RATIO (23854) AND (33784) Indication: CKD (chronic kidney disease), stage III Diabetes mellitus type II, controlled, with no complications (Renamed from Controlled type 2 diabetes mellitus without complication) : DISCONTINUED - CBC, PLATELETS & AUT DIFF (43272) Indication: Diabetes mellitus type II, controlled, with no complications (Renamed from Controlled type 2 diabetes mellitus without complication) Diabetes mellitus type II, controlled, with no complications (Renamed from Controlled type 2 diabetes mellitus without complication) : DISCONTINUED - METABOLIC PANEL, COMPREHENSIVE (86202) Indication: Diabetes mellitus type II, controlled, with no complications (Renamed from Controlled type 2 diabetes mellitus without complication) Diabetes mellitus type II, controlled, with no complications (Renamed from Controlled type 2 diabetes mellitus without complication) : DISCONTINUED - TSH (91749) Indication: Diabetes mellitus type II, controlled, with [...] dependent : DISCONTINUED - METABOLIC PANEL, BASIC (70657) Indication: Diabetes mellitus type 2, insulin dependent [...] patient does not have durable power of personal care worker or living will. The patient has noticed getting bored, poor spirits most of time and lack of energy. Other providers contributing to the lyndsey bolton's care are daycare manager () and urologist (). Note for Annual [...] and is sleeping poorly. Patient has been [employer] End: 18-Dec-2017 14:15 pliant with instructions. Current [...] and is sleeping poorly. Patient has been [employer] End: 18-Sep-2017 13:50 pliant with instructions. Current [...] - Reason for ER visit: note: (surgery [facility]. ). The patient feels well with minor [...] MRSA. She has had pre-op testing at [facility] on 10-14-2015, for Lumbar microdecompression for 10-24-[address] work[address] Breaker Off Dr. Dahl for papers to be signed [...] 19-Jul-2015 22:21 - sharp pain- went to [facility] ER). Current medication use: no side [...] surgeon- - recently went to er at [place] on jul 14 - she was having [...]
--- OUTSIDE RECORDS SUMMARY | 2018-09-25 14:24 | XMS RPT_ITS | Continuity of Care Document ---
:1950 Author Organization [facility] Address [address] [facility] [address] [place] [address] Phone Care Team Providers Name Role Phone Nav ARLENElsa Unavailable Malcolm STANLEY, Casey Florian Unavailable Linden DO , Dr. Aaron Diaz Unavailable John BatistaAnnalisa Unavailable Dr. Abimael Ag Unavailable Kirby STANLEY, Jared Galeano Unavailable Pascale Boston Unavailable Slarb HYDRO STATION SUPERVISOR, Adelita Unavailable Unavailable Long HYDRO STATION SUPERVISOR, Dora L Unavailable Unavailable Karly Chandra Unavailable [...] 585.3) Comments: follows with Dr. Munguia in [place], seen for sarcoidosis currently, stableGFR 42 Status: [...] on wean of steroid Scale 201-250. 5 qcghi424-658 8 imfiu729-279 10 rghab824-184 12 units>401 15 unitsad ding metformin not [...] given in L arm subcutaneously paitent tolerated wellLOT#[id number]#2020 NOV 06 Status: Active Postmenopausal (Renamed from Postmenopausal status) (Z78.0, V49.81) Status: Active Pregnancies () Comments: 1. 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) Comments: Sees Ciara at [facility] for sarcoid in bone marrow just saw [...] Quantity: 60 {Tablet} Refills: 3 Ordered:14-Apr-2018 Remington Ovideo Start : 14-Apr-2018 Active LORazepam 0.5 MG Oral Tablet 1 (one) Tablet bid, prn only for 0 days Quantity: 60 {Tablet} Refills: 0 Ordered:07-Jul-2018 Tatianaabelardomickey MCKNILEY Elsa Leblancmickey MCKINLEY Elsa Luke Start : [...] MOY Start : 18-Jul-2015 Active VITAMIN D3, [id number] (Oral Capsule) 1 (one) Capsule Capsule once [...] Refills: 0 Ordered:12-Mar-2016 Nav ARLEN, Elsa Reyes OUTSIDE SALES ASSOCIATE, Elsa Luke Start : 12-Mar-2016 End : [...] : 18-Dec-2017 End : 17-Jan-2018 Inactive Comments:Dr [place] , pain specialist BACTROBAN NASAL, 2% (Nasal [...] q12hrs (100 MG) End : 05-Aug-2015 Discontinued Comments:[facility] MUPIROCIN, 2% (External Ointment) 1 (one) Ointment [...] : 05-Aug-2015 Discontinued Comments:1,250mg IV q24hrs x 15ujfh2,500mg IV q24hrs #14 Allergies and Adverse Reactions [...] Comments: was seeing Dr. Munguia's partner in [place] Dr. Morel, gfr 43%, has proteinuria Status: [...] Visit Report Result: Comments: See Note; NOTES: [facility] 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 Atherosclerosis of eagle coronary artery of eagle heart without angina pectoris I25.10 Mild Plan [...] be scheduled for an outpatient visit in [facility] 9 months unless needed sooner. Thank you for allowing me to participate in the care of your patient. Please don't hesitate to call if any issues arise. This note was generated using a voice [employer] system and there may be incorrect words, spelling or punctuation that were not noted when reviewing the office note prior to saving. Follow Up 9 Months Coding Level of Care Code Off glen rodríguez,kelly l 4 Diagnoses Atherosclerosis of eagle coronary artery of eagle heart without angina pectoris I25.10 [place] vs. transplanted heart: eagle heart Paroxysmal atrial fibrillation I48.0 Hyperlipidemia, u nspecified hyperlipidemia type E78.5 Hyperlipidemia type: unspecified Essential hypertension I10 Hypertension type: essential hypertension Long-term use of high-risk medication Z79.899 Coding Level of Care Code Off glen rodríguez,level 4 Diagnoses Atherosclerosis of eagle coronary artery of eagle heart without angina pectoris I25.10 [place] vs. transplanted heart: eagle heart Paroxysmal atrial fibrillat ion I48.0 Hyperlipidemia, unspecified hyperlipidemia type E78.5 Hyperlipidemia type: unspecified Essential hypertension I10 Hypertension type: essential hypertension Long-term use of high-risk medicatio n Z79.899 02/17/18 1530 <Electronically signed by Casey Fowler MD> Date Casey Fowler MD Cosigner Signature: Date _ (if applicable) CC: Elsa Chopra NP 14-Feb-2018 SCREENING MAMM (CAD), BILAT Result: Comments: See Note; NOTES: [facility] Imaging Services [address] [place] [address] SCREENING MAMM (CAD), BILAT MR#: [id number] Acct: [id number] Name: SHREYAS KATHLEEN Rep #: [id number] : 1950 F 67 From: Elias Finn MD PCP: Elsa Chopra NP Status: REG CLI Study: SCREENING MAMM (CAD), BILAT Date of Exam: 02/14/18 Exam# [id number] Ordering Dr: Elsa Chopra MAMMO GRAPHY - [...] [facility] days. Approximately 10% of breast cancers are not detected by mammography. A normal mammogram should not delay biopsy of a clinically suspicious abnormality. [id number] Elect ronically Signed: Elias Finn MD at 8:30 EDT Tel [phone], Service support , CC: Elsa Chopra NP Furniture Technician: Signed 21-Jan-2018 Dexa Bone Density Study Result: Comments: See Note; NOTES: [facility] Imaging Services [address] [place] [address] Dexa Bone Density Study MR#: [id number] Acct: [id number] Name: SHREYAS KATHLEEN Rep #: [id number] : 1950 F 67 From: Elias Finn MD PCP: Elsa Chopra NP Status: REG CLI Study: Dexa Bone Density Study Date of Exam: 01/21/18 Exam# [id number] Ordering Dr: Elsa Chopra STUDY: DUAL E [...] Elias Finn MD at 15:36 EDT Tel [phone], Service support , CC: Elsa Chopra NP Furniture Technician: Signed 10-Dec-2016 Hip 2-3 Views with Pelvis Result: Comments: See Note; NOTES: [facility] Imaging Services [address] [place] [address] Verdana 4d Hip 2-3 Views with Pelvis MR#: [id number] Acct: [id number] Name: SHREYAS KATHLEEN Keira Rep #: [id number] : 1950 F 66 From: Herve Jimenez MD PCP: Elsa Chopra Status: REG CLI Study: Hip 2-3 Views with Pelvis Date of Exam: 12/10/16 Exam# [id number] Ordering Dr: Elsa Chopra STUDY : X-RAY [...] FACR at 11:31 EDT , Service support [phone], CC: Elsa Chopra Furniture Technician: Signed 05-Jul-2016 Abdomen Complete Result: Comments: See Note; NOTES: [facility] Imaging Services [address] [place] [address] Verdana 4d Abdomen Complete MR#: [id number] Acct: [id number] Name: SHREYAS KATHLEEN Keira Rep #: [id number] : 1950 F 66 From: Elias Finn MD PCP: Elsa Chopra Status: REG CLI Study: Abdomen Complete Date of Exam: 07/05/16 Exam# [id number] Ordering Dr: Elsa Chopra STUDY: ABDOMINAL ULTRASOUND [...] Elias Finn MD at 9:35 EDT Tel [phone], Service support [phone], CC: Elsa Chopra Furniture Technician: Signed 05-Jul-2016 Abdomen Single View Result: Comments: See Note; NOTES: [facility] Imaging Services [address] [place] [address] Verdana 4d Abdomen Single View MR#: [id number] Acct: [id number] Name: SHREYAS KATHLEEN Rep #: [id number] : 1950 F 66 From: Elias Finn MD PCP: Elsa Chopra Status: REG CLI Study: Abdomen Single View Date of Exam: 07/05/16 Exam# [id number] Ordering Dr: Elsa Chopra STUDY: X-RA Y [...] of the L1 vertebrae. ORDER # : [id number] RAD/Abdomen Single View IMPRESSION: Moderate amount of fecal material is seen in the colon. Electronically Signed: Elias Finn MD at 10:34 EDT Tel [phone], Service sup port [phone], CC: Elsa Chopra Furniture Technician: Signed 18-May-2016 Bilat Scrn Digital AND CAD Result: Comments: See Note; NOTES: [facility] Imaging Services [address] [place] [address] Verdana 4d Bilat Scrn Digital AND CAD MR#: [id number] Acct: [id number] Name: JACINTO KATHLEEN Rep #: [id number] : 1950 F 65 From: Elias Finn MD PCP: Elsa Chopra Status: REG CLI Study: Bilat Scrn Digital AND CAD Date of Exam: 05/18/16 Exam# [id number] Ordering Dr: Elsa Chopra MAMMOGRAPHY - BILATERAL [...] biopsy of a clinically suspicious abnor mality. [id number] Electronically Signed: Elias Finn MD at 12:53 EDT Tel [phone], Service support [phone], CC: Elsa Chopra Furniture Technician: Signed 14-Feb-2016 Shoulder min 2 Views Result: Comments: See Note; NOTES: [facility] Imaging Services [address] [place] [address] Oscar 4d Shoulder min 2 Views MR#: [id number] Acct: [id number] Name: SHREYAS KATHLEEN Rep #: [id number] : 1950 F 65 From: Herve Jimenez MD PCP: Madeline Florez DO Status: REG CLI Study: Shoulder min 2 Views Date of Exam: 02/14/16 Exam# [id number] Ordering Dr: Pascale Boston DO STUDY: X-RAY [...] FACR at 14:50 EDT , Service support [phone], Fax RAD/Shoulder min 2 Views IMPRESSION: Bilateral of the acromioclavicular joint, otherwise normal x-ray examination of the shoulder. Electronically Signed: Herve Jimenez MD, FACR at 14:50 EDT , Service support [phone], CC: Pascale Boston DO; Madeline Florez DO Furniture Technician: Signed 21-Oct-2015 Spirometry (46449) Comments: mod restriction Result: 19-Sep-2015 Chest PA and Lateral Result: Comments: See Note; NOTES: [facility] Imaging Services [address] [place] [place] [address] Verdana 4d Chest PA and Lateral MR#: [id number] Acct: [id number] Name: SHREYAS KATHLEEN Rep #: [id number] : 1950 F 65 From: Elias Finn MD PCP: Madeline Florez DO Status: REG CLI Study: Chest PA and Lateral Date of Exam: 09/19/15 Exam# [id number] Ordering Dr: Madeline Florez DO STUDY: X-RAY [...] Elias Finn MD at 13:58 EST Tel [phone], Service support [phone], RAD/Chest PA and Lateral IMPRESSION: Stable examination. No acute abnormality is seen. Electronically Doris d: Elias Finn MD at 13:58 EST Tel [phone], Service support [phone], CC: Madeline Florez DO Furniture Technician: Signed 25-Aug-2015 Spine Lumbar (Routine) Result: Comments: See Note; NOTES: [facility] Imaging Services [address] [place] [address] Verdana 4d Spine Lumbar (Routine) MR#: [id number] Acct: [id number] Name: SHREYAS MAJOR Rep #: [id number] : 1950 F 65 From: Herve Jimenez MD PCP: Madeline Florez DO Status: REG CLI Study: Spine Lumbar (Routine) Date of Exam: 08/25/15 Exam# [id number] Ordering Dr: ELIZABETH DE LEON M.D. STUDY: [...] FACR at 17:43 EST , Service support [phone], CC: ELIZABETH DE LEON M.D.; Madeline Florez DO Furniture Technician: Signed 25-Aug-2015 Spine Thoracic (Routine) Result: Comments: See Note; NOTES: [facility] Imaging Services [address] [place] [address] 4d Spine Thoracic (Routine) MR#: [id number] Acct: [id number] Name: SHREYAS SHARIF Keira Rep #: [id number] : 1950 F 65 From: Herve Jimenez MD PCP: Madeline Florez DO Status: REG CLI Study: Spine Thoracic (Routine) Date of Exam: 08/25/15 Exam# [id number] Ordering Dr: ELIZABETH RUIZ M.D. STUDY: MRI [...] FACR at 17:45 EST , Service support [phone], CC: ELIZABETH DE LEON M.D.; Komal Florez DO Furniture Technician: Signed 17-Aug-2015 Chest PA and Lateral Result: Comments: See Note; NOTES: [facility] Imaging Services [address] [place] [address] Verdana 4d Chest PA and Lateral MR#: [id number] Acct: [id number] Name: SHREYAS KATHLEEN Rep #: [id number] : 1950 F 65 From: Elias Finn MD PCP: Madeline Florez DO Status: REG CLI Study: Chest PA and Lateral Date of Exam: 08/17/15 Exam# [id number] Ordering Dr: Madeline Florez DO STUDY: X-RAY [...] Elias Finn MD at 11:09 EST Tel [phone], Service support [phone], Fax RAD/Chest PA and Lateral IMPRESSION: Residual changes persist in the right middle lobe and there has been some improvement. Further followup is recommended. Electr onically Signed: Elias Finn MD at 11:09 EST Tel [phone], Service support [phone], CC: Madeline Florez DO Furniture Technician: Signed 12-Aug-2015 Discharge Instruction Result: Comments: See Note; NOTES: [facility] Medical Records Department [address] [place] [address] Discharge Instruction 08/10/15 1702 MR#: [id number] Acct: [id number] Name: SHREYAS KATHLEEN Rep #: [id number] : 1950 65 From: Denny Bone MD [...] problems, contact your doctor. Call [facility] ([phone]) or report to the closest Emergency Room. Call 911 if necessary. 08/12/15 1502 <Elect ronically signed by Denny Bone MD> Date Denny Bone MD Cosigner Signature (If Indicated): Date CC: Madeline Florez DO 12-Aug-2015 Emergency Department Summary Result: Comments: See Note; NOTES: [facility] Medical Records Department [address] [place] [address] Emergency Department Summary MR#: [id number] Acct: [id number] Name: SHREYAS KATHLEEN Rep #: [id number] : 1950 65 From: Denny Bone MD [...] the patient had blood cultures obtained at [facility] and they were called to Dr. [...] Nacho Ramirez C: Madeline Bonilla MD T: [facility] JOB: [id number] 08/12/15 1502 <Electronically signed by Denny Bone MD> Date Denny Bone MD Cosigner Signature (If Indicated): Date ___ CC: Madeline Florez DO; Katelyn Arenas MD Date Dictated: 08/10/151708 Date Transcribed: 08/10/151708 Furniture Technician: Signed Social History Name Dates Details No [...] kg/m2 Body Surface Area Calculated 1.85 m2 20-Vgd-435905:20 Temperature 97.8 f Comments: Method: Temporal Pulse [...] kg/m2 Body Surface Area Calculated 1.97 m2 66-Emx-355398:34 BP Systolic 130 mm[Hg] Comments: Patient Position: Sitting BP Diastolic 80 mm[Hg] Comments: Patient Position: Sitting 97-Uto-826472:03 Temperature 98 f Comments: Method: Temporal Pulse [...] Comments: Jun 19; PATIENT WAS FASTINGPERFORMED BY: [facility]Mon[facility] CenterUttzbv3250 [facility] [id number] (84844) AND (90096) Alb/Creat Ratio 266.9 {mg/g_creat} (Abnormal) Range: 0.0-30.0 Albumin, Urine 168.7 ug/mL (Normal) Creatinine, Urine 63.2 mg/dL (Normal) :00 Metabolic Panel, Comprehensive Comments: Jun 19; PATIENT WAS FASTINGPERFORMED BY: [facility]wenMon[facility] CenterByuyzo7459 [facility] [id number] (07237) ALT (SGPT) 14 [iU]/L (Normal) Range: 0-32 [...] 8-27 Glucose 121 mg/dL (Abnormal) Range: 65-99 39-Kpg-61709:00 HGB A1C (13082) Comments: June 19; PATIENT WAS FASTINGPERFORMED BY: [facility] BioworksFormerly [facility] [id number] Hemoglobin A1c 7.0 % (Abnormal) Range: 4.8-5.6 Comments: . Prediabetes: 5.7 - 6.4 Diabetes: >6.4 Glycemic control for adults with diabetes: <7.0 52-Pdv-088775:33 ALKALINE PHOSPHATASE-ISOENZYM Comments: PATIENT NOT FASTINGPERFORMED BY: [employer] [facility]orksFormerly [facility] [id number] (75959) Intestinal Frac.: 0 % (Normal) Range: 0-18 Bone Fraction: 27 % (Normal) Range: 14-68 Liver Fraction: 73 % (Normal) Range: 18-85 Alkaline Phosphatase 89 [iU]/L (Normal) Range: 39-117 52-Bzx-825935:33 CBC, Platelets & Auto Diff Comments: PATIENT NOT FASTINGPERFORMED BY: [employer] [facility]orksFormer[facility] [id number] (43823) Immature Grans (Abs) 0.0 {x10E3/uL} (Normal) Range: [...] 3.77-5.28 WBC 5.9 {x10E3/uL} (Normal) Range: 3.4-10.8 09-Tft-955944:22 HgA1C , Office (80762) Comments: 7.3 HgA1C , Office 7.3 % (Abnormal) Range: 4.6 - 7.1 12-Btz-725432:22 Blood Glucose , Office (68124) Blood Glucose , Office 173 (Normal) 03-Bmd-69811:40 Basic Metabolic Profile (BMP) Comments: SEND RESULTS OF BMP TO .[facility] [address] [place], [address] GAP 11 (Normal) Range: 5-15 CO2 27.0 [...] A.D.A. criteria.Please note revised GLUCOSE reference range qsjoyhbzd20/02/2018. 26-Tlx-39023:40 Liver Profile Comments: SEND RESULTS OF BMP TO .[facility] [address] [place], [address] D BILI 0.09 mg/dL (Normal) Range: 0.00-0.30 T BILI 0.40 mg/dL (Normal) Range: 0.20-1.00 ALT 22 U/L (Normal) Range: 13-56 ALK P 103 U/L (Normal) Range: 45-117 AST 17 U/L (Normal) Range: 15-37 GLOB 4.0 g/dL (Normal) Range: 2.2-4.2 ALB 3.8 g/dL (Normal) Range: 3.2-5.0 T PROT 7.8 g/dL (Normal) Range: 6.4-8.2 45-Mhz-703881:41 CALCIFEDIOL (78777) Comments: PATIENT WAS FASTINGPERFORMED BY: [facility]CoMon[facility] CenterIwqzoe8472 [facility] [id number] Vitamin D, 25-Hydroxy 44.2 ng/mL (Normal) Range: 30.0-100.0 Comments: Vitamin D deficiency has been defined by the [place] of[place]icine and an Endocrine Society practice guideline as alevel of serum 25-OH vitamin D less than 20 ng/mL (1,2).The Endocrine Society went on to further define vitamin Dinsufficiency as a level between 21 and 29 ng/mL (2).1. IOM ([place] of Medicine). 2010. Dietary reference intakes for calcium and D. [place]: The National Academies Press.2. Jacinto MF, Eddy NOGUEIRA, Quintin JAVED, et al. Evaluation, treatment, and prevention of vitamin D deficiency: an Endocrine Society clinical practice guideline. JCEM. 2010; 96(7):1911-30. 14-Xqz-070692:41 METABOLIC PANEL, Comments: PATIENT WAS FASTINGPERFORMED BY: [facility]CoMon[facility] CenterBgpcyy3051 [facility] [id number] Information: [id number],D91578; OV 03/19 COMPREHENSIVE (20212) ALT (SGPT) 15 [iU]/L (Normal) Range: 0-32 [...] 8-27 Glucose 143 mg/dL (Abnormal) Range: 65-99 50-Efz-345106:31 Blood Glucose , Office (26912) Blood Glucose , Office 211 (Normal) 71-Era-171350:31 HgA1C , Office (84139) HgA1C , Office 6.8 % (Normal) Range: 4.6 - 7.1 10-Uoo-894745:33 CBC, Platelets & Auto Diff Comments: PATIENT WAS FASTINGPERFORMED BY: [facility]CoMon[facility] CenterYxzewc5296 [facility] [id number] (85041) Immature Grans (Abs) 0.0 {x10E3/uL} (Normal) Range: [...] 3.77-5.28 WBC 7.7 {x10E3/uL} (Normal) Range: 3.4-10.8 53-Ntt-352823:33 Lipid Panel (72645) Comments: PATIENT WAS FASTINGPERFORMED BY: [employer] Jlvhxn9383 [facility] [id number] LDL/HDL Ratio 0.9 {ratio} (Normal) Range: 0.0-3.2 [...] Panel, Comprehensive Comments: PATIENT WAS FASTINGPERFORMED BY: edolin6370 [facility] [id number] (92888) ALT (SGPT) 18 [iU]/L (Normal) Range: 0-32 [...] CREATININE RATIO Comments: PATIENT WAS FASTINGPERFORMED BY: [facility]orksFormer[facility] [id number] (62983) AND (71054) Alb/Creat Ratio 225.5 {mg/g_creat} (Abnormal) Range: 0.0-30.0 Albumin, Urine 112.5 ug/mL (Normal) Creatinine, Urine 49.9 mg/dL (Normal) :33 URINALYSIS (88128) Comments: PATIENT WAS FASTINGPERFORMED BY: [facility]Former[facility] [id number] Microscopic Examination See below: (Normal) Comments: Microscopic was indicated and was performed. Nitrite, Urine Negative (Normal) Urobilinogen,Semi-Qn 0.2 mg/dL (Normal) Range: 0.2-1.0 Bilirubin Negative (Normal) Occult Blood Negative (Normal) Ketones Negative (Normal) Glucose Negative (Normal) Protein Trace (Normal) WBC Esterase 2+ (Abnormal) Appearance Clear (Normal) Urine-Color Yellow (Normal) pH 6.5 (Normal) Range: 5.0-7.5 Specific [place] 1.014 (Normal) Range: 1.005-1.030 :33 TSH (00991) Comments: PATIENT WAS FASTINGPERFORMED BY: [facility]Former[facility] [id number] TSH 3.870 {uIU/mL} (Normal) Range: 0.450-4.500 54-Qus-037350:33 Microscopic Examination Comments: PATIENT WAS FASTINGPERFORMED BY: [facility]Former[facility] [id number] Bacteria Few (Normal) Mucus Threads Present (Normal) Cast Type Hyaline casts (Normal) Casts Present {/lpf} (Abnormal) Epithelial Cells (non renal) >10 {/hpf} (Abnormal) Range: 0 - 10 RBC 0-2 {/hpf} (Normal) Range: 0 - 2 WBC 11-30 {/hpf} (Abnormal) Range: 0 - 5 :57 HgA1C , Office (99463) Comments: 6.6 HgA1C , Office 6.6 % (Normal) Range: 4.6 - 7.1 :57 Blood Glucose , Office (75691) Blood Glucose , Office 211 (Normal) :53 HEPATIC FUNCTION PANEL Comments: PATIENT NOT FASTINGPERFORMED BY: [facility] [id number] (64144) ALT (SGPT) 13 [iU]/L (Normal) Range: 0-32 AST (SGOT) 17 [iU]/L (Normal) Range: 0-40 Alkaline Phosphatase, S 89 [iU]/L (Normal) Range: 39-117 Bilirubin, Direct 0.08 mg/dL (Normal) Range: 0.00-0.40 Bilirubin, Total <0.2 mg/dL (Normal) Range: 0.0-1.2 Albumin, Serum 4.2 g/dL (Normal) Range: 3.6-4.8 Protein, Total, Serum 6.8 g/dL (Normal) Range: 6.0-8.5 :53 HQEZC-NAPFBJDQYZS-VPHPU (21605) Comments: PATIENT NOT FASTINGPERFORMED BY: [employer] [facility].comFormerly [facility] [id number] AFP, Serum, Tumor Marker 2.6 ng/mL (Normal) Range: 0.0-8.3 Comments: Rosmery ECLIA methodology :53 ALKALINE PHOSPHATASE-ISOENZYM Comments: PATIENT NOT FASTINGPERFORMED BY: [facility]orksFormer[facility] [id number] (90328) Intestinal Frac.: 5 % (Normal) Range: 0-18 Bone Fraction: 24 % (Normal) Range: 14-68 Liver Fraction: 71 % (Normal) Range: 18-85 02-Zmm-870412:11 ALKALINE PHOSPHATASE-ISOENZYM Comments: PATIENT NOT FASTINGPERFORMED BY: [facility] [address]ublin [place] [id number] (81718) Intestinal Frac.: 3 % (Normal) Range: 0-18 Bone Fraction: 19 % (Normal) Range: 14-68 Liver Fraction: 78 % (Normal) Range: 18-85 Alkaline Phosphatase, S 122 [iU]/L (Abnormal) Range: 39-117 70-Wfo-595631:11 CALCIFEDIOL (01459) Comments: PATIENT NOT FASTINGPERFORMED BY: [facility] Tksvak7[address]ana RoadDublin [place] [id number] Vitamin D, 25-Hydroxy 37.5 ng/mL (Normal) Range: 30.0-100.0 Comments: Vitamin D deficiency has been defined by the [place] of[place]icine and an Endocrine Society practice guideline as alevel of serum 25-OH vitamin D less than 20 ng/mL (1,2).The Endocrine Society went on to further define vitamin Dinsufficiency as a level between 21 and 29 ng/mL (2).1. IOM ([place] of Medicine). 2010. Dietary reference intakes for calcium and D. [place]: The National Academies Press.2. Jacinto MF, Eddy [place], Anay-Gonzalo JAVED, et al. Evaluation, treatment, and prevention of vitamin D deficiency: an Endocrine Society clinical practice guideline. JCEM. 2010; 96(7):1911-30. 63-Dzp-822116:11 TSH (80021) Comments: PATIENT NOT FASTINGPERFORMED BY: [facility] Ftcxgb3561 [address] RoadDublin [place] [id number] TSH 1.620 {uIU/mL} (Normal) Range: 0.450-4.500 83-Ine-173235:11 T4, FREE (THYROXINE) (79048) Comments: PATIENT NOT FASTINGPERFORMED BY: [facility] [address]ubb5[address] RoadDublin [place] [id number] T4,Free(Direct) 1.00 ng/dL (Normal) Range: 0.82-1.77 98-Atb-175832:11 T3, FREE (TRIDOTHYRONINE) (89219) Comments: PATIENT NOT FASTINGPERFORMED BY: [facility] [address]kw2280 [facility] [id number] Triiodothyronine,Free,Serum 2.5 pg/mL (Normal) Range: 2.0-4.4 :08 HgA1C , Office (11033) HgA1C , Office 7.4 % (Abnormal) Range: 4.6 - 7.1 :08 Blood Glucose , Office (99221) Blood Glucose , Office 190 (Normal) :30 Lipid Profile Comments: Order Date: 12/12/16Order Info: 0788-1 - *Hepatic Function PanelOrder Info: 68014-7 - *Lipid Profile CC PCPComments: 12 hours fasting, may have water.Comments: 6 months / [facility] [address] [place], [place], [address] VLDL 46 mg/dL (Abnormal) Range: 5-40 LDL [...] Info: 0788-1 - *Hepatic Function PanelOrder Info: 38273-8 - *Lipid Profile CC PCPComments: 12 hours fasting, may have water.Comments: 6 months / pre [facility]WCl[facility] [address] [place], [place], [id number] D BILI 0.11 mg/dL (Normal) Range: 0.00-0.30 T BILI 0.40 mg/dL (Normal) Range: 0.20-1.00 ALT 19 U/L (Normal) Range: 12-78 ALK P 132 U/L (Abnormal) Range: 45-117 AST 15 U/L (Normal) Range: 15-37 GLOB 4.3 g/dL (Abnormal) Range: 2.3-3.5 ALB 3.5 g/dL (Normal) Range: 3.4-5.0 T PROT 7.8 g/dL (Normal) Range: 6.4-8.2 2-Mnn-532289:55 TSH (THYROID STIMULATING Comments: Week of Apr 09; PATIENT NOT FASTINGPERFORMED BY: [facility]orksFormer[facility] [id number] HORMONE) (18143) TSH 0.728 {uIU/mL} (Normal) Range: 0.450-4.500 :55 HgA1C , Office (43952) HgA1C , Office 6.9 % (Normal) Range: 4.6 - 7.1 :55 Blood Glucose , Office (28907) Blood Glucose , Office 143 (Normal) 27-Jun-982208:11 Microscopic Examination Comments: PATIENT WAS FASTINGPERFORMED BY: [facility] BioworksFormerly [facility] [id number] Bacteria Few (Normal) Mucus Threads Present (Normal) Cast Type Hyaline casts (Normal) Casts Present {/lpf} (Abnormal) Epithelial Cells (non renal) 0-10 {/hpf} (Normal) Range: 0 - 10 RBC 0-2 {/hpf} (Normal) Range: 0 - 2 WBC 6-10 {/hpf} (Abnormal) Range: 0 - 5 17-Hkb-508682:11 URINALYSIS, W/ MICRO (75088) Comments: January 2017; PATIENT WAS FASTINGPERFORMED BY: [employer] BioworksFormerly [facility] [id number] Microscopic Examination See below: (Normal) Comments: Microscopic was indicated and was performed. Nitrite, Urine Negative (Normal) Urobilinogen,Semi-Qn 0.2 mg/dL (Normal) Range: 0.2-1.0 Bilirubin Negative (Normal) Occult Blood Negative (Normal) Ketones Negative (Normal) Glucose Trace (Abnormal) Protein 1+ (Abnormal) WBC Esterase 1+ (Abnormal) Appearance Clear (Normal) Urine-Color Yellow (Normal) pH 6.5 (Normal) Range: 5.0-7.5 Specific [place] 1.016 (Normal) Range: 1.005-1.030 20-Lmu-785244:11 MICROALBUMIN: CREATININE RATIO Comments: January 2017; PATIENT WAS FASTINGPERFORMED BY: Chumen Wenwen Oxvldq8261 [place] [facility] HospitalKnoa SoftwareFormerly [facility] [id number] ([id number]) AND (80906) Microalb/Creat Ratio 208.2 {mg/g_creat} (Abnormal) Range: 0.0-30.0 Microalbumin, Urine 182.2 ug/mL (Normal) Creatinine, Urine 87.5 mg/dL (Normal) 15-Mza-148313:11 CBC, Platelets & Auto Diff Comments: January 2017; PATIENT WAS FASTINGPERFORMED BY: [employer] Rzrqmy4818 [facility].comFormerly [facility] [id number] (98460) Immature Grans (Abs) 0.0 {x10E3/uL} (Normal) Range: [...] 3.77-5.28 WBC 5.6 {x10E3/uL} (Normal) Range: 3.4-10.8 52-Wkg-274011:11 Metabolic Panel, Comprehensive Comments: January 2017; PATIENT WAS FASTINGPERFORMED BY: LabCoMonmouth Medical CenterZopzko9390 [facility] [id number] (56308) ALT (SGPT) 13 [iU]/L (Normal) Range: 0-32 [...] Glucose, Serum 120 mg/dL (Abnormal) Range: 65-99 72-Lgo-331901:11 TSH (THYROID STIMULATING Comments: January 2017; PATIENT WAS FASTINGPERFORMED BY: [facility] Gdhism2194 [facility] [id number] HORMONE) (55302) TSH 0.982 {uIU/mL} (Normal) Range: 0.450-4.500 2-Ihi-595283:02 Lipid Profile Comments: Order Date: 12/04/16Order Info: [id number] - *Hepatic Function PanelOrder Date: 12/04/16Order Info: [id number] - *Lipid Profile CC PCPComments: 12 hours fasting, may have water.[place] [address] [place], [place], [id number] VLDL 36 mg/dL (Normal) Range: 5-40 LDL [...] 200-240 mg/dL Borderline >240 mg/dL High Risk 5-Yzn-914171:02 Liver Profile Comments: Order Date: 12/04/16Order Info: [id number] - *Hepatic Function PanelOrder Date: 12/04/16Order Info: [id number] - *Lipid Profile CC PCPComments: 12 hours fasting, may have water.[place] [address] [place], [place], [id number] D BILI 0.07 mg/dL (Normal) Range: 0.00-0.30 T BILI 0.30 mg/dL (Normal) Range: 0.20-1.00 ALT 21 U/L (Normal) Range: 12-78 ALK P 112 U/L (Normal) Range: 45-117 AST 19 U/L (Normal) Range: 15-37 GLOB 3.8 g/dL (Abnormal) Range: 2.3-3.5 ALB 3.4 g/dL (Normal) Range: 3.4-5.0 T PROT 7.2 g/dL (Normal) Range: 6.4-8.2 04-Dks-367244:29 URINE RANDELL CULTURE-ZEINAB COL Comments: PATIENT NOT FASTINGPERFORMED BY: TechpointUNM Children's Psychiatric CenterUexjpr8515 [facility] [id number] Information: SRC:UC COUNT (47602) Result 1 MUG (Normal) Comments: Mixed urogenital flora25,000-50,000 colony forming units per mL Urine Final report (Normal) Culture,Comprehensive 92-Ngl-597905:53 Urinalysis, Office (19723) UA - LEUKOCYTE ESTERASE Small (Normal) UA - NITRITE Negative (Normal) URINE UROBILINGN ZEINAB TIMED Normal mg/dL (Normal) UA - PROTEIN Negative mg/dL (Normal) UA - PH 7 (Normal) UA - BLOOD Negative (Normal) UA - SPECIFIC GRAVITY 1.020 (Normal) UA - KETONES Negative mg/dL (Normal) UA - BILIRUBIN Small (Normal) UA - GLUCOSE Negative (Normal) 74-Cqr-050719:51 Blood Glucose , Office (18298) Comments: 169 Blood Glucose , Office 169 (Normal) :52 HgA1C , Office (43386) Comments: 7.0 HgA1C , Office 7.0 % (Normal) Range: 4.6 - 7.1 :22 URINE RANDELL CULTURE-IDENTIFICATN Comments: PATIENT NOT FASTINGPERFORMED BY: LabBeaumont Hospital6370 [facility] [id number] Information: SRC:UC (94603) Result 1 MUG (Normal) Comments: Mixed urogenital flora10,000-25,000 colony forming units per mL Urine Final report (Normal) Culture,Comprehensive 85-Aky-535986:05 Urinalysis, Office (90241) UA - LEUKOCYTE ESTERASE Negative (Normal) UA - NITRITE Negative (Normal) URINE UROBILINGN ZEINAB TIMED Normal mg/dL (Normal) UA - PROTEIN 30 mg/dL (Normal) UA - PH 6 (Abnormal) UA - BLOOD non-hemolyzed trace (Normal) UA - SPECIFIC GRAVITY 1.020 (Normal) UA - KETONES Negative mg/dL (Normal) UA - BILIRUBIN Negative (Normal) UA - GLUCOSE 100 (Abnormal) :42 HgA1C , Office (43514) HgA1C , Office 6.2 % (Normal) Range: 4.6 - 7.1 :42 Blood Glucose , Office (62320) Blood Glucose , Office 137 (Normal) :01 TSH (THYROID STIMULATING Comments: PATIENT NOT FASTINGPERFORMED BY: [employer] [facility] [id number] HORMONE) (57482) TSH 1.820 {uIU/mL} (Normal) Range: 0.450-4.500 :03 HEPATIC FUNCTION PANEL Comments: PATIENT NOT FASTINGPERFORMED BY: Chumen Wenwen [facility] [id number] (31514) ALT (SGPT) 15 [iU]/L (Normal) Range: 0-32 AST (SGOT) 23 [iU]/L (Normal) Range: 0-40 Alkaline Phosphatase, S 95 [iU]/L (Normal) Range: 39-117 Bilirubin, Direct 0.12 mg/dL (Normal) Range: 0.00-0.40 Bilirubin, Total 0.3 mg/dL (Normal) Range: 0.0-1.2 Albumin, Serum 4.3 g/dL (Normal) Range: 3.6-4.8 Protein, Total, Serum 7.3 g/dL (Normal) Range: 6.0-8.5 :03 INERZ-RZWUKVCXWYL-MYNRU (49929) Comments: PATIENT NOT FASTINGPERFORMED BY: Chumen Wenwen Rrnnwh4688 [facility] [id number] AFP, Serum, Tumor Marker 2.8 ng/mL (Normal) Range: 0.0-8.3 Comments: Rosmery ECLIA methodology :03 HEPATITIS PANEL (47711) Comments: PATIENT NOT FASTINGPERFORMED BY: [employer] [facility] [id number] Hep C Virus Ab <0.1 {s/co_ratio} (Normal) Range: 0.0-0.9 Comments: Negative: < 0.8 Indeterminate: 0.8 - 0.9 Positive: > 0.9 . The CDC recommends that a positive HCV antibody result be followed up with a HCV Nucleic Acid Amplification test (181074). Hep B Core Ab, IgM Negative (Normal) HBsAg Screen Negative (Normal) Hep A Ab, IgM Negative (Normal) :58 CBC W/Diff, Automated Comments: CBCD FOR DR CHATMANSpringfield Hospital Medical Centerisma [facility] [address] [place], [address] Absolute Lymph 1.84 {X10_3/ul} (Normal) Range: 0.83-4.51 [...] Comments: Order Date: 05/14/16Interface Comments: Reason:Order Date: 05/14/16[facility] [address] [place], [id number] T4 THYROXIN 11.6 ug/dL (Normal) Range: 4.8-13.9 :58 Thyroid Stim Hormone (TSH) Comments: Order Date: 05/14/16Interface Comments: Reason:Order Date: 05/14/16[facility] [address] [place], [address] TSH 1.96 {uIU/mL} (Normal) Range: 0.358-3.74 :11 Urinalysis, Office (02976) UA - LEUKOCYTE ESTERASE Small (Normal) UA - NITRITE Negative (Normal) URINE UROBILINGN ZEINAB TIMED Normal mg/dL (Normal) UA - PROTEIN 30 mg/dL (Normal) UA - PH 6 (Abnormal) UA - BLOOD Negative (Normal) UA - SPECIFIC GRAVITY 1.010 (Normal) UA - KETONES Negative mg/dL (Normal) UA - BILIRUBIN Negative (Normal) UA - GLUCOSE Negative (Normal) :50 Basic Metabolic Profile (BMP) Comments: [facility] [address] [place], [id number] GAP 7 (Normal) Range: 5-15 CO2 33.0 [...] 100 mg/dL (Normal) Range: 70-110 :48 MAGNESIUM (96180) Comments: PATIENT NOT FASTINGPERFORMED BY: LabCoMon[facility] Medical CenterDfghxi5320 [facility] [id number] Magnesium, Serum 1.6 mg/dL (Normal) Range: 1.6-2.3 :48 TSH (THYROID STIMULATING Comments: PATIENT NOT FASTINGPERFORMED BY: [facility] Eozvtv1230 [facility] [id number] HORMONE) (95896) TSH 6.340 {uIU/mL} (Abnormal) Range: 0.450-4.500 :48 URIC ACID BLOOD (62696) Comments: PATIENT NOT FASTINGPERFORMED BY: LabCoUNM Children's Psychiatric CenterOvwlns3160 [facility] [id number] Uric Acid, Serum 6.1 mg/dL (Normal) Range: 2.5-7.1 Comments: Therapeutic target for gout patients: <6.0 :09 Blood Glucose , Office (28811) Blood Glucose , Office 116 (Normal) :09 HgA1C , Office (24692) HgA1C , Office 6.7 % (Normal) Range: 4.6 - 7.1 :19 Basic Metabolic Profile (BMP) Comments: Order Date: 03/12/16OV Order #: [id number] Health [facility] Campus [address] [place], [address] GAP 7 (Normal) Range: 5-15 CO2 29.0 [...] 7-18 GLU 107 mg/dL (Normal) Range: 70-110 79-Orr-045852:19 T4 Total, Thyroxin Comments: Order Date: 03/12/16 Order #: [id number] Clinic Luther[facility] Hospital [address] [place], [place], [address] T4 THYROXIN 9.4 ug/dL (Normal) Range: 4.8-13.9 :19 Thyroid Stim Hormone (TSH) Comments: Order Date: 03/12/16 Order #: [id number] Clinic Luther[facility] Hospital [address]iz[address] [place], [place], [address] TSH 5.44 {uIU/mL} (Abnormal) Range: 0.358-3.74 :49 Aerobic Bacterial Culture Comments: PATIENT NOT FASTINGPERFORMED BY: [facility] Ldfttf8830 [facility] [id number] Information: RT AXILLA Result 1 MRSA (Abnormal) [...] (Normal) Comments: PATIENT NOT FASTINGPERFORMED BY: [facility] Ybovox5510 [place] [id number] Information: NASAL 5:49 Culture 94-Xuq-155240:20 Basic Metabolic Profile (BMP) Comments: [facility] [address] [place], [place], [address] GAP 7 (Normal) Range: 5-15 CO2 29.0 [...] A.D.A. criteria. :02 Blood Glucose , Office (16764) Blood Glucose , Office 137 (Normal) :54 Urine Drug Screen (Office - WNL (Normal) Comments: pos for oxy, all else neg Urine Drug Screen 6 Panel) Comments: All negative except Oxy (08574) :52 HgA1C , Office (15397) Comments: 7.3 HgA1C , Office 7.3 % (Abnormal) Range: 4.6 - 7.1 2-Zdu-226555:43 Basic Metabolic Profile (BMP) Comments: DR URBINA ORDERED BMPDR MALCOLM ORDERED LIVER LIPIDWSumma Health [facility] Campus [address] [place], [address] GAP 3 (Abnormal) Range: 5-15 CO2 33.0 mmol/L (Abnormal) Range: 21.0-32.0 CL 102 mmol/L (Normal) Range: 98-107 K 3.4 mmol/L (Abnormal) Range: 3.5-5.1 Comments: ADDENDA: Denisse at [facility] aware of potassium level NA 138 [...] 7-18 GLU 101 mg/dL (Normal) Range: 70-110 7-Vyw-493532:43 Lipid Profile Comments: DR URBINA ORDERED BMPDR MOODISPAW ORDERED LIVER LIPIDCleveland Clinic Luther[facility] Hospital [address] [place], [address] VLDL 26 mg/dL (Normal) Range: [...] 200-240 mg/dL Borderline >240 mg/dL High Risk 9-Gcv-039352:43 Liver Profile Comments: DR URBINA ORDERED BMPDR MOODISPAW ORDERED LIVER LIPIDCleveland Clinic Luther[facility] Hospital [address] [place], [address] D BILI 0.14 mg/dL (Normal) Range: 0.00-0.30 T BILI 0.40 mg/dL (Normal) Range: 0.20-1.00 ALT 16 U/L (Normal) Range: 12-78 ALK P 112 U/L (Normal) Range: 50-136 AST 19 U/L (Normal) Range: 15-37 GLOB 3.9 g/dL (Abnormal) Range: 2.3-3.5 ALB 3.0 g/dL (Abnormal) Range: 3.4-5.0 T PROT 6.9 g/dL (Normal) Range: 6.4-8.2 :02 Blood Glucose , Office (66804) Blood Glucose , Office 160 (Normal) :37 HgA1C , Office (50997) Comments: 7.2 HgA1C , Office 7.2 % (Abnormal) Range: 4.6 - 7.1 :24 MRSA Culture (88594) Comments: [facility] [address] [place], [place], [address] MRSA RESULT Negative (Normal) :59 Metabolic Panel, Basic Comments: send to Dr.Masroor Urbina; PATIENT NOT FASTINGPERFORMED BY: LabCoMonmouth Medical CenterRpirom7975 [facility] [id number] Information: [id number] (04663) Calcium, Serum 10.7 mg/dL (Abnormal) Range: 8.7-10.3 [...] Glucose, Serum 182 mg/dL (Abnormal) Range: 65-99 1-Ecq-305029:09 MRSA Culture (43600) Comments: [facility] [address] [place], [address] MRSA RESULT POSITIVE (Abnormal) :39 Lipid Profile Comments: [facility] [address] [place], [id number] VLDL 23 mg/dL (Normal) Range: 5-40 LDL [...] mg/dL High Risk :39 Liver Profile Comments: [facility] [address] [place], [address] ; non-emergent and handled by [...] Range: 6.4-8.2 :39 T4 Total, Thyroxin Comments: [place] [address] [place], [address] T4 THYROXIN 10.9 ug/dL (Normal) Range: 4.8-13.9 :39 Thyroid Stim Hormone (TSH) Comments: [facility] [address] [place], [address] TSH 3.63 {uIU/mL} (Normal) Range: 0.358-3.74 7-Uiy-635913:13 LIPID PANEL (59638) Comments: PATIENT WAS FASTINGPERFORMED BY: [facility]6370 [facility] [id number] LDL/HDL Ratio 1.2 {ratio_units} (Normal) Range: 0.0-3.2 [...] Cholesterol, Total 160 mg/dL (Normal) Range: 100-199 7-Fcy-526098:13 CBC W/AUTO DIFF WBC Comments: PATIENT WAS FASTINGPERFORMED BY: [facility]6370 [facility] [id number] Information: [id number] (29729) Immature Grans (Abs) 0.0 {x10E3/uL} (Normal) Range: [...] 3.77-5.28 WBC 4.5 {x10E3/uL} (Normal) Range: 3.4-10.8 4-Tpf-444212:13 METABOLIC PANEL, COMPREHENSIVE Comments: PATIENT WAS FASTINGPERFORMED BY: [facility]CoMon[facility] Medical CenterXelpqy2059 [facility] [id number] (52778) ALT (SGPT) 8 [iU]/L (Normal) Range: 0-32 [...] Glucose, Serum 109 mg/dL (Abnormal) Range: 65-99 9-Jym-698211:15 Basic Metabolic Profile (BMP) Comments: [facility] [address] [place], [place], [address] GAP 7 (Normal) Range: 5-15 CO2 30.0 [...] 200 mg/dLsuggests DIABETES MELLITUS per A.D.A. criteria. 8-Xxq-727072:15 CBC W/Diff, Automated Comments: [facility] [address] [place], [place], [address] Absolute Lymph 0.95 {X10_3/ul} (Normal) Range: 0.83-4.51 [...] K/mm3 (Normal) Range: 4.4-11.0 :31 LIPID PANEL (34570) Comments: PATIENT WAS FASTINGPERFORMED BY: LabCoMon[facility] Medical CenterGplkcm1564 [facility] [id number]; non-emergent till apt LDL/HDL Ratio 1.6 {ratio_units} [...] Cholesterol, Total 219 mg/dL (Abnormal) Range: 100-199 45-Iif-489970:31 CBC with auto diff Comments: PATIENT WAS FASTINGPERFORMED BY: [facility]CoMon[facility] Medical CenterRenuvj5455 [facility] [id number] Information: [id number] (02985) Immature Grans (Abs) 0.0 {x10E3/uL} (Normal) Range: [...] CREATININE RATIO Comments: PATIENT WAS FASTINGPERFORMED BY: LabCoMon[facility] Medical CenterFnvzfj9559 [facility] [id number] (00129) AND (58079) Microalb/Creat Ratio 93.7 {mg/g_creat} (Abnormal) Range: 0.0-30.0 Microalbumin, Urine 196.4 ug/mL (Abnormal) Range: 0.0-17.0 Creatinine, Urine 209.7 mg/dL (Normal) Range: 15.0-278.0 :31 METABOLIC PANEL, COMPREHENSIVE Comments: PATIENT WAS FASTINGPERFORMED BY: Qitio6370 [facility] [id number] (34485) ALT (SGPT) 20 [iU]/L (Normal) Range: 0-32 [...] Glucose, Serum 120 mg/dL (Abnormal) Range: 65-99 57-Ujb-078653:31 Hemoglobin Glyclated (HGB A1C) Comments: PATIENT WAS FASTINGPERFORMED BY: [employer]70 [facility] [id number] (58056) Hemoglobin A1c 7.6 % (Abnormal) Range: 4.8-5.6 Comments: . Pre-diabetes: 5.7 - 6.4 Diabetes: >6.4 Glycemic control for adults with diabetes: <7.0 44-Kda-523987:30 Urinalysis, Complete Comments: Order Date: 07/18/15How was Urine Obtained? CLEAN [facility] [address] [place], [place], [address] MUCUS, URINE 0 SEEN {/hpf} (Normal) BACTERIA [...] (Abnormal) CLARITY Clear (Normal) COLOR Yellow (Normal) 71-Ucp-144354:43 CBC W/Diff, Automated Comments: [facility] [address] [place], [place], [address] PATH REV May foll (Normal) SMEAR COMMENT [...] 4.2-5.4 WBC 15.1 K/mm3 (Abnormal) Range: 4.4-11.0 71-Uyn-449033:43 Comprehensive Metabolic Profil Comments: [facility] [address] [place], [place], [address] GAP 8 (Normal) Range: 5-15 CO2 33.0 [...] Comments: To be drawn 6H after initial specimenWSumma Health [facility] Campus [address] [place], [place], [address] LACTIC ACID 1.7 mmol/L (Normal) Range: 0.4-2.0 :43 Magnesium Comments: [facility] [address] [place], [place], [address](871) MG 1.3 mg/dL (Abnormal) Range: 1.8-2.4 :43 Partial Thromboplast Time Comments: [facility] [address] [place], [place], [phone] PTT 31.4 s (Normal) Range: 24.1-36.2 :43 Phosphorus Comments: [facility] [address] [place], [address] PHOS 1.0 mg/dL (Abnormal) Range: 2.5-4.9 Comments: Critical Result(s) Called at: 17:06:16 07/18/2015 by:Stacey ibarra rn 52-Opo-982067:43 Prothrombin Time w/INR Comments: [facility] [address] [place], [place], [address](451) INR 0.9 (Normal) PROTIME 12.8 s (Normal) [...] with abnormal findings in adult : Reviewed Skilled Helper Letter Indication: Encounter for annual general medical [...] - Strool Based DNA Test, CRC SCREEN (61183)Indication: Encounter for screening for malignant neoplasm of colon (Renamed from Special screening for malignant neoplasms, colon) On: 44-Dto-734379:05 Request FECAL OCCULT- Tubes sent home (18609)Indication: Encounter for screening for malignant neoplasm of colon (Renamed from Special screening for malignant neoplasms, colon) On: 06-Edk-492196:09 Request Lipid Panel (78291)Indication: Diabetes mellitus type 2, insulin dependent On: 07-Jyj-512088:08 Request Comments: around January Metabolic Panel, Comprehensive (32387)Indication: Diabetes mellitus type 2, insulin dependent On: 01-Yac-478067:08 Request Comments: around January CBC, Platelets & Auto Diff (27731)Indication: Diabetes mellitus type 2, insulin dependent On: 23-Xdr-745137:08 Request Comments: around January TSH (76249)Indication: Diabetes mellitus type 2, insulin dependent On: 13-Nzw-457406:08 Request Comments: around January Rapid Flu (24199 x 2)Indication: Unspecified Diagnosis On: 11-Vcu-71199:33 Request CBC & PLATELETS (AUTO) (40697)Indication: Abdominal pain On: 7-Oas-750535:57 Request CULTURE, NOSE (50269)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 On: :31 Request Comments: check for MRSA MRSA Culture (62535)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 On: :23 Request Comments: rt axila HgA1C , Office (38656)Indication: Diabetes mellitus type 2, insulin dependent On: 81-Dnn-890430:21 Request Urinalysis, Office (13415)Indication: History of MRSA infection On: 99-Esi-218399:42 Request Hemoglobin Glyclated (HGB A1C) (91413)Indication: Diabetes mellitus type 2, uncontrolled On: 18-Tii-132631:46 Request MICROALBUMIN: CREATININE RATIO (67341) AND (76123)Indication: Hypertensive heart disease without heart failure On: 85-Yga-059467:46 Request Planned Encounters Medical; 3 Month FU - On: 28-Jul-2018 13:30 Comprehensive Internal Medicine Elsa Chopra CNP, CNP, Mary E Planned Procedures Overnight Pulse OX (24740)By: On: 30-Jun-2018 Intent Lee Ann Schafer DO SPIROMETRY PERFORMED (50302)By: On: 25-Jun-2018 Intent Visit, Nurse SPIROMETRY PERFORMED (81348)By: On: 25-Jun-2018 Intent Visit, Nurse SIX MINUTE WALK TEST (66994)By: On: 25-Jun-2018 Intent Visit, Nurse Flu Vaccine (Quadrivalent) 86770Le: On: 20-May-2018 Intent Karly Chandra DEXA SCAN AXIAL SKELETON (60957)By: On: 18-Dec-2017 Intent Elsa Chopra CNP, CNP, Mary E SCREENING DIGITAL TOMOSYNTHESIS OF On: 18-Dec-2017 Intent BREAST (15394)By: Elsa Chopra CNP, CNP, Mary E Flu Vaccine (Quadrivalent) 55573Ni: On: 11-Jun-2017 Intent Tatianaabelardomickey MCKINLEYElsa Tatianaabelardomickey MCKINLEY [place] Comments: InfluenzaLot #[id number]-L dltd, IMDose prefilled syringeVIS and ABN signedgiven by:GENARO blackwood PHYSICAL THERAPY TREATMENT On: 11-Dec-2016 Intent (11214)By: Adelita Doshi LPN PHYSICAL THERAPY EVALUATION On: 11-Dec-2016 Intent (74239)By: Elsa Chopra CNP, CNP [place] Toradol Injection, 30 mg On: 10-Dec-2016 Intent ([id number])By: Elsa Chopra CNP, CNP [place] Radiology - Hip - RightBy: Nav On: 10-Dec-2016 Intent ARLEN OneliaMarly Chopra CNP [place] Aerosol Treatment (14846)By: Tico On: 16-Oct-2016 Intent Adelita LAM Flu Vaccine (Quadrivalent) 96715Ld: On: 11-Jul-2016 Intent Elsa Chopra CNP, CNP [place] Comments: FLUlot: [id number]:01/16site:Lt deltoidroute:IMdose:.5mlDEMICK, [place] Ultrasound - Abdomen CompleteBy: On: 03-Jul-2016 Intent Elsa Chopra CNP, CNP [place] Radiology - KUBBy: Elsa Chopra CNP On: 03-Jul-2016 Elsa Youssef CNP DRAIN/INJECT SMALL JOINT OR BURSA On: 18-May-2016 Intent ()By: Elsa Chopra CNP Comments: to left wrist joint 1/2 cc kenalog, 1/2 cc marcaine. Kenalog lot [id number] exp Marcain lot [id number] ex Elsa MCKINLEY MAMMOGRAM, SCREENING, BOTH BREAST On: 11-May-2016 Intent (49123)By: Elsa Chopra CNP, CNP, Mary E Radiology [...] mellitus without complication) : DISCONTINUED - URINALYSIS (56350) Indication: Diabetes mellitus type II, controlled, with no complications (Renamed from Controlled type 2 diabetes mellitus without complication) CKD (chronic kidney disease), stage III : DISCONTINUED - MICROALBUMIN: CREATININE RATIO (70955) AND (02197) Indication: CKD (chronic kidney disease), stage III Diabetes mellitus type II, controlled, with no complications (Renamed from Controlled type 2 diabetes mellitus without complication) : DISCONTINUED - CBC, PLATELETS & AUT DIFF (42578) Indication: Diabetes mellitus type II, controlled, with no complications (Renamed from Controlled type 2 diabetes mellitus without complication) Diabetes mellitus type II, controlled, with no complications (Renamed from Controlled type 2 diabetes mellitus without complication) : DISCONTINUED - METABOLIC PANEL, COMPREHENSIVE (01073) Indication: Diabetes mellitus type II, controlled, with no complications (Renamed from Controlled type 2 diabetes mellitus without complication) Diabetes mellitus type II, controlled, with no complications (Renamed from Controlled type 2 diabetes mellitus without complication) : DISCONTINUED - TSH (90180) Indication: Diabetes mellitus type II, controlled, with [...] dependent : DISCONTINUED - METABOLIC PANEL, BASIC (20403) Indication: Diabetes mellitus type 2, insulin dependent [...] patient does not have durable power of cleaning associate or living will. The patient has noticed getting bored, poor spirits most of time and lack of energy. Other providers contributing to the lyndsey bolton's care are maintenance supervisor 2nd shift () and urologist (). Note for Annual [...] and is sleeping poorly. Patient has been [employer] End: 18-Dec-2017 14:15 pliant with instructions. [...] and is sleeping poorly. Patient has been [employer] End: 18-Sep-2017 13:50 pliant with instructions. [...] - Reason for ER visit: note: (surgery [facility]. ). The patient feels well with minor [...] MRSA. She has had pre-op testing at [facility] on 10-14-2015, for Lumbar microdecompression for 10-24-[address] Grain [address]er [address]. Dahl for papers to be signed [...] 19-Jul-2015 22:21 - sharp pain- went to [facility] ER). Current medication use: no side [...] surgeon- - recently went to er at [facility] on jul 14 - she was having [...]
--- OUTSIDE RECORDS SUMMARY | 2018-09-25 14:26 | XMS RPT_ITS | Continuity of Care Document ---
:1950 Author Organization [facility] Address [address] [facility] [address] [place] [address] Phone Care Team Providers Name Role Phone Nav ARLENElsa Unavailable Malcolm STANLEY, Casey Florian Unavailable Linden DO , Dr. Aaron Diaz Unavailable John BatistaAnnalisa Unavailable Dr. Abimael Ag Unavailable Kirby STANLEY, Jared Galeano Unavailable Pascale Boston Unavailable Slarb MALT HOUSE OPERATOR, Adelita Unavailable Unavailable Long MALT HOUSE OPERATOR, Dora L Unavailable Unavailable Karly Chandra [...] 585.3) Comments: follows with Dr. Munguia in [place], seen for sarcoidosis currently, stableGFR 42 Status: [...] on wean of steroid Scale 201-250. 5 znrax987-107 8 ocbac769-725 10 -349 12 units>401 15 unitsad ding metformin not [...] given in L arm subcutaneously paitent tolerated wellLOT#[id number]#2020 NOV 06 Status: Active Postmenopausal (Renamed from Postmenopausal status) (Z78.0, V49.81) Status: Active Pregnancies () Comments: 1. 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) Comments: Sees Ciara at [facility] for sarcoid in bone marrow just saw [...] days Quantity: 30 {Tablet} Refills: 0 Ordered:11-Jun-2017 Nva MCKINLEY, Elsa Reyes CNP, Elsa Luke Start [...] MOY Start : 18-Jul-2015 Active VITAMIN D3, 89572WSMM (Oral Capsule) 1 (one) Capsule Capsule once [...] Refills: 0 Ordered:12-Mar-2016 Nav ARLEN, Elsa Reyes TRIAL LAWYER, Elsa Luke Start : 12-Mar-2016 End : [...] q12hrs (100 MG) End : 05-Aug-2015 Discontinued Comments:[facility] MUPIROCIN, 2% (External Ointment) 1 (one) Ointment [...] : 05-Aug-2015 Discontinued Comments:1,250mg IV q24hrs x 41jmki6,500mg IV q24hrs #14 Allergies and Adverse Reactions [...] Comments: was seeing Dr. Munguia's partner in [place] Dr. Morel, gfr 43%, has proteinuria Status: [...] Visit Report Result: Comments: See Note; NOTES: [facility] [address] [place] [address] OFFICE VISIT Date of Service: 02/17/18 MR#: [id number] Acct: [id number] Name: SHREYAS KATHLEEN Rep #: [id number] : 1950 Provider: Casey Fowler MD Age/Sex: 67/F Location[facility] Status: Signed HPI HPI Details: SHREYAS KATHLEEN, is a 67 F who presents to the office today for for outpatien t cardiovascular follow-up of her history of underlying CAD, non-ST segment elevation [place], paroxysmal atrial fibrillation, superimposed upon a history [...] PFSH Medical History Atherosclerotic heart disease of [place] coronary artery without angina pectoris (Chronic) History [...] stenosis Assessment AND Plan 1. Atherosclerosis of [place] coronary artery of [place] heart without angina pectoris I25.10 Mild Plan [...] be scheduled for an outpatient visit in [facility] 9 months unless needed sooner. Thank you for allowing me to participate in the care of your patient. Please don't hesitate to call if any issues arise. This note was generated using a voice Blownaway system and there may be incorrect words, spelling or punctuation that were not noted when reviewing the office note prior to saving. Follow Up 9 Months Coding Level of Care Code Off glen rodríguez,kelly l 4 Diagnoses Atherosclerosis of [place] coronary artery of [place] heart without angina pectoris I25.10 [place] vs. transplanted heart: [place] heart Paroxysmal atrial fibrillation I48.0 Hyperlipidemia, u nspecified hyperlipidemia type E78.5 Hyperlipidemia type: unspecified Essential hypertension I10 Hypertension type: essential hypertension Long-term use of high-risk medication Z79.899 Coding Level of Care Code Off glen rodríguez,level 4 Diagnoses Atherosclerosis of [place] coronary artery of [place] heart without angina pectoris I25.10 [place] vs. transplanted heart: [place] heart Paroxysmal atrial fibrillat ion I48.0 Hyperlipidemia, unspecified hyperlipidemia type E78.5 Hyperlipidemia type: unspecified Essential hypertension I10 Hypertension type: essential hypertension Long-term use of high-risk medicatio n Z79.899 02/17/18 1530 <Electronically signed by Casey Fowler MD> Date Casey Fowler MD Cosigner Signature: Date _ (if applicable) CC: Elsa Chopra NP 14-Feb-2018 SCREENING MAMM (CAD), BILAT Result: Comments: See Note; NOTES: [facility] Imaging Services [address] [place] [address] SCREENING MAMM (CAD), BILAT MR#: [id number] Acct: [id number] Name: SHREYAS KATHLEEN Rep #: [id number] : 1950 F 67 From: Elias Finn MD PCP: Elsa Chopra NP Status: REG CLI Study: SCREENING MAMM (CAD), BILAT Date of Exam: 02/14/18 Exam# [id number] Ordering Dr: Elsa Chopra MAMMO GRAPHY - [...] [facility]. Approximately 10% of breast cancers are not detected by mammography. A normal mammogram should not delay biopsy of a clinically suspicious abnormality. [id number] Elect ronically Signed: Elias Finn MD at 8:30 EDT Tel [phone], Service support , CC: Elsa Chopra NP Real Estate Investment Analyst: Signed 21-Jan-2018 Dexa Bone Density Study Result: Comments: See Note; NOTES: [facility] Imaging Services [address] [place] [address] Dexa Bone Density Study MR#: [id number] Acct: [id number] Name: SHREYAS KATHLEEN Rep #: [id number] : 1950 F 67 From: Elias Finn MD PCP: Elsa Chopra NP Status: REG CLI Study: Dexa Bone Density Study Date of Exam: 01/21/18 Exam# [id number] Ordering Dr: Elsa Chopra STUDY: DUAL E [...] Elias Finn MD at 15:36 EDT Tel [phone], Service support , CC: Elsa Chopra NP Real Estate Investment Analyst: Signed 10-Dec-2016 Hip 2-3 Views with Pelvis Result: Comments: See Note; NOTES: [facility] Imaging Services [address] [place] [address] Verdana 4d Hip 2-3 Views with Pelvis MR#: [id number] Acct: [id number] Name: SHREYAS KATHLEEN Keira Rep #: [id number] : 1950 F 66 From: Herve Jimenez MD PCP: Elsa Chopra Status: REG CLI Study: Hip 2-3 Views with Pelvis Date of Exam: 12/10/16 Exam# [id number] Ordering Dr: Elsa Chopra STUDY : X-RAY [...] FACR at 11:31 EDT , Service support [phone], CC: Elsa Chopra Real Estate Investment Analyst: Signed 05-Jul-2016 Abdomen Complete Result: Comments: See Note; NOTES: [facility] Imaging Services [address] [place] [address] Verdana 4d Abdomen Complete MR#: [id number] Acct: [id number] Name: SHREYAS KATHLEEN Keira Rep #: [id number] : 1950 F 66 From: Elias Finn MD PCP: Elsa Chopra Status: REG CLI Study: Abdomen Complete Date of Exam: 07/05/16 Exam# [id number] Ordering Dr: Elsa Chopra STUDY: ABDOMINAL ULTRASOUND [...] Elias Finn MD at 9:35 EDT Tel [phone], Service support [phone], CC: Elsa Chopra Real Estate Investment Analyst: Signed 05-Jul-2016 Abdomen Single View Result: Comments: See Note; NOTES: [facility] Imaging Services [address] [place] [address] Verdana 4d Abdomen Single View MR#: [id number] Acct: [id number] Name: SHREYAS KATHLEEN Rep #: [id number] : 1950 F 66 From: Elias Finn MD PCP: Elsa Chopra Status: REG CLI Study: Abdomen Single View Date of Exam: 07/05/16 Exam# [id number] Ordering Dr: Elsa Chopra STUDY: X-RA Y [...] of the L1 vertebrae. ORDER # : [id number] RAD/Abdomen Single View IMPRESSION: Moderate amount of fecal material is seen in the colon. Electronically Signed: Elias Finn MD at 10:34 EDT Tel [phone], Service sup port [phone], CC: Elsa Chopra Real Estate Investment Analyst: Signed 18-May-2016 Bilat Scrn Digital AND CAD Result: Comments: See Note; NOTES: [facility] Imaging Services [address] [place] [address] Verdana 4d Bilat Scrn Digital AND CAD MR#: [id number] Acct: [id number] Name: JACINTO KATHLEEN Rep #: [id number] : 1950 F 65 From: Elias Finn MD PCP: Elsa Chopra Status: REG CLI Study: Bilat Scrn Digital AND CAD Date of Exam: 05/18/16 Exam# [id number] Ordering Dr: Elsa Chopra MAMMOGRAPHY - BILATERAL [...] biopsy of a clinically suspicious abnor mality. [id number] Electronically Signed: Elias Finn MD at 12:53 EDT Tel [phone], Service support [phone], CC: Elsa Chopra Real Estate Investment Analyst: Signed 14-Feb-2016 Shoulder min 2 Views Result: Comments: See Note; NOTES: [facility] Imaging Services [address] [place] [address] Oscar 4d Shoulder min 2 Views MR#: [id number] Acct: [id number] Name: SHREYAS KATHLEEN Rep #: [id number] : 1950 F 65 From: Herve Jimenez MD PCP: Madeline Florez DO Status: REG CLI Study: Shoulder min 2 Views Date of Exam: 02/14/16 Exam# [id number] Ordering Dr: Pascale Boston DO STUDY: X-RAY [...] FACR at 14:50 EDT , Service support [phone], Fax RAD/Shoulder min 2 Views IMPRESSION: Bilateral of the acromioclavicular joint, otherwise normal x-ray examination of the shoulder. Electronically Signed: Herve Jimenez MD, FACR at 14:50 EDT , Service support [phone], CC: Pascale Boston DO; Madeline Florez DO Real Estate Investment Analyst: Signed 21-Oct-2015 Spirometry (69691) Comments: mod restriction Result: 19-Sep-2015 Chest PA and Lateral Result: Comments: See Note; NOTES: [facility] Imaging Services [address] [place] [address] Verdana 4d Chest PA and Lateral MR#: [id number] Acct: [id number] Name: SHREYAS KATHLEEN Rep #: [id number] : 1950 F 65 From: Elias Finn MD PCP: Madeline Florez DO Status: REG CLI Study: Chest PA and Lateral Date of Exam: 09/19/15 Exam# [id number] Ordering Dr: Madeline Florez DO STUDY: X-RAY [...] Elias Finn MD at 13:58 EST Tel [phone], Service support [phone], RAD/Chest PA and Lateral IMPRESSION: Stable examination. No acute abnormality is seen. Electronically Doris d: Elias Finn MD at 13:58 EST Tel [phone], Service support [phone], CC: Madeline Florez DO Real Estate Investment Analyst: Signed 25-Aug-2015 Spine Lumbar (Routine) Result: Comments: See Note; NOTES: [facility] Imaging Services [address] [place] [address] Verdana 4d Spine Lumbar (Routine) MR#: [id number] Acct: [id number] Name: SHREYAS MAJOR Rep #: [id number] : 1950 F 65 From: Herve Jimenez MD PCP: Madeline Florez DO Status: REG CLI Study: Spine Lumbar (Routine) Date of Exam: 08/25/15 Exam# [id number] Ordering Dr: ELIZABETH DE LEON M.D. STUDY: [...] FACR at 17:43 EST , Service support [phone], CC: ELIZABETH DE LEON M.D.; Madeline Florez DO Real Estate Investment Analyst: Signed 25-Aug-2015 Spine Thoracic (Routine) Result: Comments: See Note; NOTES: [facility] Imaging Services [address] [place] [address] 4d Spine Thoracic (Routine) MR#: [id number] Acct: [id number] Name: SHREYAS SHARIF Keira Rep #: [id number] : 1950 F 65 From: Herve Jimenez MD PCP: Madeline Florez DO Status: REG CLI Study: Spine Thoracic (Routine) Date of Exam: 08/25/15 Exam# [id number] Ordering Dr: ELIZABETH RUIZ M.D. STUDY: MRI [...] FACR at 17:45 EST , Service support [phone], CC: ELIZABETH DE LEON M.D.; Komal Florez DO Real Estate Investment Analyst: Signed 17-Aug-2015 Chest PA and Lateral Result: Comments: See Note; NOTES: [facility] Imaging Services [address] [place] [address] Verdana 4d Chest PA and Lateral MR#: [id number] Acct: [id number] Name: SHREYAS KATHLEEN Rep #: [id number] : 1950 F 65 From: Elias Finn MD PCP: Madeline Florez DO Status: REG CLI Study: Chest PA and Lateral Date of Exam: 08/17/15 Exam# [id number] Ordering Dr: Madeline Florez DO STUDY: X-RAY [...] Elias Finn MD at 11:09 EST Tel [phone], Service support [phone], Fax RAD/Chest PA and Lateral IMPRESSION: Residual changes persist in the right middle lobe and there has been some improvement. Further followup is recommended. Electr onically Signed: Elias Finn MD at 11:09 EST Tel [phone], Service support [phone], CC: Madeline Florez DO Real Estate Investment Analyst: Signed 12-Aug-2015 Discharge Instruction Result: Comments: See Note; NOTES: [facility] Medical Records Department [address] [place] [address] Discharge Instruction 08/10/15 1702 MR#: [id number] Acct: [id number] Name: SHREYAS KATHLEEN Rep #: [id number] : 1950 65 From: Denny Bone MD [...] problems, contact your doctor. Call [facility] ([phone]) or report to the closest Emergency Room. Call 911 if necessary. 08/12/15 1502 <Elect ronically signed by Denny Bone MD> Date Denny Bone MD Cosigner Signature (If Indicated): Date CC: Madeline Florez DO 12-Aug-2015 Emergency Department Summary Result: Comments: See Note; NOTES: [facility] Medical Records Department [address] [place] [address] Emergency Department Summary MR#: [id number] Acct: [id number] Name: SHREYAS KATHLEEN Rep #: [id number] : 1950 65 From: Denny Bone MD [...] the patient had blood cultures obtained at [facility] and they were called to Dr. [...] Nacho Ramirez C: Madeline Bonilla MD T: [facility] JOB: [id number] 08/12/15 1502 <Electronically signed by Denny Bone MD> Date Denny Bone MD Cosigner Signature (If Indicated): Date ___ CC: Madeline Florez DO; Katelyn Arenas MD Date Dictated: 08/10/151708 Date Transcribed: 08/10/151708 Real Estate Investment Analyst: Signed Social History Name Dates Details No [...] kg/m2 Body Surface Area Calculated 1.85 m2 27-Udm-267386:20 Temperature 97.8 f Comments: Method: Temporal Pulse [...] kg/m2 Body Surface Area Calculated 1.97 m2 30-Buy-102549:34 BP Systolic 130 mm[Hg] Comments: Patient Position: Sitting BP Diastolic 80 mm[Hg] Comments: Patient Position: Sitting 23-Dst-800606:03 Temperature 98 f Comments: Method: Temporal Pulse [...] Comments: Jun 19; PATIENT WAS FASTINGPERFORMED BY: [facility] HospitalWzxfqh8086 [facility] [id number] (93005) AND (70445) Alb/Creat Ratio 266.9 {mg/g_creat} (Abnormal) Range: 0.0-30.0 Albumin, Urine 168.7 ug/mL (Normal) Creatinine, Urine 63.2 mg/dL (Normal) :00 Metabolic Panel, Comprehensive Comments: Jun 19; PATIENT WAS FASTINGPERFORMED BY: [facility] HospitalCpseho8330 [facility] [id number] (24429) ALT (SGPT) 14 [iU]/L (Normal) Range: 0-32 [...] 8-27 Glucose 121 mg/dL (Abnormal) Range: 65-99 75-Dby-25533:00 HGB A1C (64192) Comments: June 19; PATIENT WAS FASTINGPERFORMED BY: [facility] [id number] Hemoglobin A1c 7.0 % (Abnormal) Range: 4.8-5.6 Comments: . Prediabetes: 5.7 - 6.4 Diabetes: >6.4 Glycemic control for adults with diabetes: <7.0 20-Znk-415942:33 ALKALINE PHOSPHATASE-ISOENZYM Comments: PATIENT NOT FASTINGPERFORMED BY: [facility] [id number] (23323) Intestinal Frac.: 0 % (Normal) Range: 0-18 Bone Fraction: 27 % (Normal) Range: 14-68 Liver Fraction: 73 % (Normal) Range: 18-85 Alkaline Phosphatase 89 [iU]/L (Normal) Range: 39-117 52-Czc-606303:33 CBC, Platelets & Auto Diff Comments: PATIENT NOT FASTINGPERFORMED BY: [facility] [id number] (37827) Immature Grans (Abs) 0.0 {x10E3/uL} (Normal) Range: [...] 3.77-5.28 WBC 5.9 {x10E3/uL} (Normal) Range: 3.4-10.8 24-Ils-122270:22 HgA1C , Office (55427) Comments: 7.3 HgA1C , Office 7.3 % (Abnormal) Range: 4.6 - 7.1 05-Aqm-076764:22 Blood Glucose , Office (99417) Blood Glucose , Office 173 (Normal) 97-Edz-34806:40 Basic Metabolic Profile (BMP) Comments: SEND RESULTS OF BMP TO .[facility] [address] [place], [address] GAP 11 (Normal) Range: 5-15 CO2 27.0 [...] A.D.A. criteria.Please note revised GLUCOSE reference range zvvwxlsqy22/02/2018. 75-Sfg-97095:40 Liver Profile Comments: SEND RESULTS OF BMP TO .[facility] [address] [place], [address] D BILI 0.09 mg/dL (Normal) Range: 0.00-0.30 T BILI 0.40 mg/dL (Normal) Range: 0.20-1.00 ALT 22 U/L (Normal) Range: 13-56 ALK P 103 U/L (Normal) Range: 45-117 AST 17 U/L (Normal) Range: 15-37 GLOB 4.0 g/dL (Normal) Range: 2.2-4.2 ALB 3.8 g/dL (Normal) Range: 3.2-5.0 T PROT 7.8 g/dL (Normal) Range: 6.4-8.2 63-Jrf-125930:41 CALCIFEDIOL (68881) Comments: PATIENT WAS FASTINGPERFORMED BY: [facility] HospitalQcrjco2520 [facility] [id number] Vitamin D, 25-Hydroxy 44.2 ng/mL (Normal) Range: 30.0-100.0 Comments: Vitamin D deficiency has been defined by the [place] of[place]icine and an Endocrine Society practice guideline as alevel of serum 25-OH vitamin D less than 20 ng/mL (1,2).The Endocrine Society went on to further define vitamin Dinsufficiency as a level between 21 and 29 ng/mL (2).1. IOM ([place] of Medicine). 2010. Dietary reference intakes for calcium and D. [place]: The National Academies Press.2. Jacinto MF, Eddy NOGUEIRA, Quintin JAVED, et al. Evaluation, treatment, and prevention of vitamin D deficiency: an Endocrine Society clinical practice guideline. JCEM. 2010; 96(7):1911-30. 63-Vlx-102941:41 METABOLIC PANEL, Comments: PATIENT WAS FASTINGPERFORMED BY: [facility] HospitalDdrndh0002 [facility] [id number] Information: 352107,K77459; OV 03/19 COMPREHENSIVE (24044) ALT (SGPT) 15 [iU]/L (Normal) Range: 0-32 [...] 8-27 Glucose 143 mg/dL (Abnormal) Range: 65-99 10-Wzg-055863:31 Blood Glucose , Office (57475) Blood Glucose , Office 211 (Normal) 72-Dhm-650279:31 HgA1C , Office (48885) HgA1C , Office 6.8 % (Normal) Range: 4.6 - 7.1 82-Vls-457090:33 CBC, Platelets & Auto Diff Comments: PATIENT WAS FASTINGPERFORMED BY: [facility] HospitalJgxwew5931 [facility] [id number] (66486) Immature Grans (Abs) 0.0 {x10E3/uL} (Normal) Range: [...] 3.77-5.28 WBC 7.7 {x10E3/uL} (Normal) Range: 3.4-10.8 33-Dbx-411568:33 Lipid Panel (97296) Comments: PATIENT WAS FASTINGPERFORMED BY: [employer] Yksdgi1546 [facility] [id number] LDL/HDL Ratio 0.9 {ratio} (Normal) Range: 0.0-3.2 [...] Panel, Comprehensive Comments: PATIENT WAS FASTINGPERFORMED BY: SeatKarmalin6370 [facility] [id number] (08729) ALT (SGPT) 18 [iU]/L (Normal) Range: 0-32 [...] CREATININE RATIO Comments: PATIENT WAS FASTINGPERFORMED BY: [facility] [id number] (14525) AND (48133) Alb/Creat Ratio 225.5 {mg/g_creat} (Abnormal) Range: 0.0-30.0 Albumin, Urine 112.5 ug/mL (Normal) Creatinine, Urine 49.9 mg/dL (Normal) :33 URINALYSIS (17103) Comments: PATIENT WAS FASTINGPERFORMED BY: [facility] [id number] Microscopic Examination See below: (Normal) Comments: Microscopic was indicated and was performed. Nitrite, Urine Negative (Normal) Urobilinogen,Semi-Qn 0.2 mg/dL (Normal) Range: 0.2-1.0 Bilirubin Negative (Normal) Occult Blood Negative (Normal) Ketones Negative (Normal) Glucose Negative (Normal) Protein Trace (Normal) WBC Esterase 2+ (Abnormal) Appearance Clear (Normal) Urine-Color Yellow (Normal) pH 6.5 (Normal) Range: 5.0-7.5 Specific [place] 1.014 (Normal) Range: 1.005-1.030 :33 TSH (50677) Comments: PATIENT WAS FASTINGPERFORMED BY: [facility] [id number] TSH 3.870 {uIU/mL} (Normal) Range: 0.450-4.500 80-Cbj-572572:33 Microscopic Examination Comments: PATIENT WAS FASTINGPERFORMED BY: [facility] [id number] Bacteria Few (Normal) Mucus Threads Present (Normal) Cast Type Hyaline casts (Normal) Casts Present {/lpf} (Abnormal) Epithelial Cells (non renal) >10 {/hpf} (Abnormal) Range: 0 - 10 RBC 0-2 {/hpf} (Normal) Range: 0 - 2 WBC 11-30 {/hpf} (Abnormal) Range: 0 - 5 :57 HgA1C , Office (96374) Comments: 6.6 HgA1C , Office 6.6 % (Normal) Range: 4.6 - 7.1 :57 Blood Glucose , Office (18261) Blood Glucose , Office 211 (Normal) :53 HEPATIC FUNCTION PANEL Comments: PATIENT NOT FASTINGPERFORMED BY: [facility] [id number] (55365) ALT (SGPT) 13 [iU]/L (Normal) Range: 0-32 AST (SGOT) 17 [iU]/L (Normal) Range: 0-40 Alkaline Phosphatase, S 89 [iU]/L (Normal) Range: 39-117 Bilirubin, Direct 0.08 mg/dL (Normal) Range: 0.00-0.40 Bilirubin, Total <0.2 mg/dL (Normal) Range: 0.0-1.2 Albumin, Serum 4.2 g/dL (Normal) Range: 3.6-4.8 Protein, Total, Serum 6.8 g/dL (Normal) Range: 6.0-8.5 :53 WUSKZ-LLJPFSXZTOA-WDMBU (64920) Comments: PATIENT NOT FASTINGPERFORMED BY: Mulu70 [employer] [facility] [id number] AFP, Serum, Tumor Marker 2.6 ng/mL (Normal) Range: 0.0-8.3 Comments: Rosmery ECLIA methodology :53 ALKALINE PHOSPHATASE-ISOENZYM Comments: PATIENT NOT FASTINGPERFORMED BY: [facility] [id number] (74714) Intestinal Frac.: 5 % (Normal) Range: 0-18 Bone Fraction: 24 % (Normal) Range: 14-68 Liver Fraction: 71 % (Normal) Range: 18-85 24-Toc-245196:11 ALKALINE PHOSPHATASE-ISOENZYM Comments: PATIENT NOT FASTINGPERFORMED BY: [facility] Aatcfe79[address] Road[address]ublin [place] [id number] (96933) Intestinal Frac.: 3 % (Normal) Range: 0-18 Bone Fraction: 19 % (Normal) Range: 14-68 Liver Fraction: 78 % (Normal) Range: 18-85 Alkaline Phosphatase, S 122 [iU]/L (Abnormal) Range: 39-117 94-Njc-346982:11 CALCIFEDIOL (82907) Comments: PATIENT NOT FASTINGPERFORMED BY: [facility] Wmxgzi84[address] RoadDublin [place] [id number] Vitamin D, 25-Hydroxy 37.5 ng/mL (Normal) Range: 30.0-100.0 Comments: Vitamin D deficiency has been defined by the [place] of[place]icine and an Endocrine Society practice guideline as alevel of serum 25-OH vitamin D less than 20 ng/mL (1,2).The Endocrine Society went on to further define vitamin Dinsufficiency as a level between 21 and 29 ng/mL (2).1. IOM ([place] of [place]). 2010. Dietary reference intakes for calcium and D. [place]: The National Academies Press.2. Jacinto MF, Eddy [place], Anay-Gonzalo JAVED, et al. Evaluation, treatment, and prevention of vitamin D deficiency: an Endocrine Society clinical practice guideline. JCEM. 2010; 96(7):1911-30. 23-Hzg-193262:11 TSH (96149) Comments: PATIENT NOT FASTINGPERFORMED BY: [facility] Akqwec57[address] RoadDublin [place] [id number] TSH 1.620 {uIU/mL} (Normal) Range: 0.450-4.500 72-Aav-938446:11 T4, FREE (THYROXINE) (12343) Comments: PATIENT NOT FASTINGPERFORMED BY: [facility] Enqxou7[address] RoadDublin [place] [id number] T4,Free(Direct) 1.00 ng/dL (Normal) Range: 0.82-1.77 82-Ncy-482054:11 T3, FREE (TRIDOTHYRONINE) (48574) Comments: PATIENT NOT FASTINGPERFORMED BY: [facility] Owhqab6281 [facility] [id number] Triiodothyronine,Free,Serum 2.5 pg/mL (Normal) Range: 2.0-4.4 :08 HgA1C , Office (04365) HgA1C , Office 7.4 % (Abnormal) Range: 4.6 - 7.1 :08 Blood Glucose , Office (55516) Blood Glucose , Office 190 (Normal) :30 Lipid Profile Comments: Order Date: 12/12/16Order Info: 0788-1 - *Hepatic Function PanelOrder Info: 86334-7 - *Lipid Profile CC PCPComments: 12 hours fasting, may have water.Comments: 6 months / [facility] [address] [facility] [address] [place], [place], [address] VLDL 46 mg/dL (Abnormal) Range: 5-40 LDL [...] Info: 0788-1 - *Hepatic Function PanelOrder Info: 49499-1 - *Lipid Profile CC PCPComments: 12 hours fasting, may have water.Comments: 6 months / [facility] [address] [place], [place], [id number] D BILI 0.11 mg/dL (Normal) Range: 0.00-0.30 T BILI 0.40 mg/dL (Normal) Range: 0.20-1.00 ALT 19 U/L (Normal) Range: 12-78 ALK P 132 U/L (Abnormal) Range: 45-117 AST 15 U/L (Normal) Range: 15-37 GLOB 4.3 g/dL (Abnormal) Range: 2.3-3.5 ALB 3.5 g/dL (Normal) Range: 3.4-5.0 T PROT 7.8 g/dL (Normal) Range: 6.4-8.2 2-Pod-177577:55 TSH (THYROID STIMULATING Comments: Week of Apr 09; PATIENT NOT FASTINGPERFORMED BY: [facility] [id number] HORMONE) (33065) TSH 0.728 {uIU/mL} (Normal) Range: 0.450-4.500 :55 HgA1C , Office (65838) HgA1C , Office 6.9 % (Normal) Range: 4.6 - 7.1 :55 Blood Glucose , Office (66254) Blood Glucose , Office 143 (Normal) 54-Evu-877065:11 Microscopic Examination Comments: PATIENT WAS FASTINGPERFORMED BY: H[facility] InnovationD[facility] [id number] Bacteria Few (Normal) Mucus Threads Present (Normal) Cast Type Hyaline casts (Normal) Casts Present {/lpf} (Abnormal) Epithelial Cells (non renal) 0-10 {/hpf} (Normal) Range: 0 - 10 RBC 0-2 {/hpf} (Normal) Range: 0 - 2 WBC 6-10 {/hpf} (Abnormal) Range: 0 - 5 61-Pgh-525585:11 URINALYSIS, W/ MICRO (66558) Comments: January 2017; PATIENT WAS FASTINGPERFORMED BY: [facility] InnovationD[facility] [id number] Microscopic Examination See below: (Normal) Comments: Microscopic was indicated and was performed. Nitrite, Urine Negative (Normal) Urobilinogen,Semi-Qn 0.2 mg/dL (Normal) Range: 0.2-1.0 Bilirubin Negative (Normal) Occult Blood Negative (Normal) Ketones Negative (Normal) Glucose Trace (Abnormal) Protein 1+ (Abnormal) WBC Esterase 1+ (Abnormal) Appearance Clear (Normal) Urine-Color Yellow (Normal) pH 6.5 (Normal) Range: 5.0-7.5 Specific [place] 1.016 (Normal) Range: 1.005-1.030 07-Nne-708834:11 MICROALBUMIN: CREATININE RATIO Comments: January 2017; PATIENT WAS FASTINGPERFORMED BY: AdNear Xiyovv9121 [facility] RegionSmash TechnologiesDuke Regional Hospital [id number] ([id number]) AND (23190) Microalb/Creat Ratio 208.2 {mg/g_creat} (Abnormal) Range: 0.0-30.0 Microalbumin, Urine 182.2 ug/mL (Normal) Creatinine, Urine 87.5 mg/dL (Normal) 11-Tmr-794058:11 CBC, Platelets & Auto Diff Comments: January 2017; PATIENT WAS FASTINGPERFORMED BY: LocBox Uxmscm5416 [employer] Threat IntelligenceDuke Regional Hospital [id number] ([id number]) Immature Grans (Abs) 0.0 {x10E3/uL} (Normal) Range: [...] 3.77-5.28 WBC 5.6 {x10E3/uL} (Normal) Range: 3.4-10.8 19-Sxg-285146:11 Metabolic Panel, Comprehensive Comments: January 2017; PATIENT WAS FASTINGPERFORMED BY: LabCoChilton Memorial HospitalRhvgpu6056 [facility] [id number] ([id number]) ALT (SGPT) 13 [iU]/L (Normal) Range: 0-32 [...] Glucose, Serum 120 mg/dL (Abnormal) Range: 65-99 83-Zfl-639136:11 TSH (THYROID STIMULATING Comments: January 2017; PATIENT WAS FASTINGPERFORMED BY: [facility] Jefpqo6311 [facility] [id number] HORMONE) (76502) TSH 0.982 {uIU/mL} (Normal) Range: 0.450-4.500 8-Qhy-444272:02 Lipid Profile Comments: Order Date: 12/04/16Order Info: [id number] - *Hepatic Function PanelOrder Date: 12/04/16Order Info: [id number] - *Lipid Profile CC PCPComments: 12 hours fasting, may have water.[place] [address] [place], [place], [id number] VLDL 36 mg/dL (Normal) Range: 5-40 LDL [...] 200-240 mg/dL Borderline >240 mg/dL High Risk 8-Eam-463312:02 Liver Profile Comments: Order Date: 12/04/16Order Info: [id number] - *Hepatic Function PanelOrder Date: 12/04/16Order Info: [id number] - *Lipid Profile CC PCPComments: 12 hours fasting, may have water.[place] [address] [place], [place], [address] D BILI 0.07 mg/dL (Normal) Range: 0.00-0.30 T BILI 0.30 mg/dL (Normal) Range: 0.20-1.00 ALT 21 U/L (Normal) Range: 12-78 ALK P 112 U/L (Normal) Range: 45-117 AST 19 U/L (Normal) Range: 15-37 GLOB 3.8 g/dL (Abnormal) Range: 2.3-3.5 ALB 3.4 g/dL (Normal) Range: 3.4-5.0 T PROT 7.2 g/dL (Normal) Range: 6.4-8.2 34-Nri-583801:29 URINE RANDELL CULTURE-ZEINAB COL Comments: PATIENT NOT FASTINGPERFORMED BY: LocBoxPresbyterian Kaseman HospitalUwivgv2152 [facility] [id number] Information: SRC:UC COUNT (22007) Result 1 MUG (Normal) Comments: Mixed urogenital flora25,000-50,000 colony forming units per mL Urine Final report (Normal) Culture,Comprehensive 24-Oom-424932:53 Urinalysis, Office (83904) UA - LEUKOCYTE ESTERASE Small (Normal) UA - NITRITE Negative (Normal) URINE UROBILINGN ZEINAB TIMED Normal mg/dL (Normal) UA - PROTEIN Negative mg/dL (Normal) UA - PH 7 (Normal) UA - BLOOD Negative (Normal) UA - SPECIFIC GRAVITY 1.020 (Normal) UA - KETONES Negative mg/dL (Normal) UA - BILIRUBIN Small (Normal) UA - GLUCOSE Negative (Normal) 56-Kfw-451744:51 Blood Glucose , Office (39979) Comments: 169 Blood Glucose , Office 169 (Normal) :52 HgA1C , Office (51927) Comments: 7.0 HgA1C , Office 7.0 % (Normal) Range: 4.6 - 7.1 :22 URINE RANDELL CULTURE-IDENTIFICATN Comments: PATIENT NOT FASTINGPERFORMED BY: LabHavenwyck Hospital6370 [facility] [id number] Information: SRC:UC (26512) Result 1 MUG (Normal) Comments: Mixed urogenital flora10,000-25,000 colony forming units per mL Urine Final report (Normal) Culture,Comprehensive 40-Bap-827727:05 Urinalysis, Office (29561) UA - LEUKOCYTE ESTERASE Negative (Normal) UA - NITRITE Negative (Normal) URINE UROBILINGN ZEINAB TIMED Normal mg/dL (Normal) UA - PROTEIN 30 mg/dL (Normal) UA - PH 6 (Abnormal) UA - BLOOD non-hemolyzed trace (Normal) UA - SPECIFIC GRAVITY 1.020 (Normal) UA - KETONES Negative mg/dL (Normal) UA - BILIRUBIN Negative (Normal) UA - GLUCOSE 100 (Abnormal) :42 HgA1C , Office (95784) HgA1C , Office 6.2 % (Normal) Range: 4.6 - 7.1 :42 Blood Glucose , Office (72402) Blood Glucose , Office 137 (Normal) :01 TSH (THYROID STIMULATING Comments: PATIENT NOT FASTINGPERFORMED BY: [employer]Box foc[facility]us [facility] [id number] HORMONE) (08895) TSH 1.820 {uIU/mL} (Normal) Range: 0.450-4.500 :03 HEPATIC FUNCTION PANEL Comments: PATIENT NOT FASTINGPERFORMED BY: [employer] [facility] [id number] (13827) ALT (SGPT) 15 [iU]/L (Normal) Range: 0-32 AST (SGOT) 23 [iU]/L (Normal) Range: 0-40 Alkaline Phosphatase, S 95 [iU]/L (Normal) Range: 39-117 Bilirubin, Direct 0.12 mg/dL (Normal) Range: 0.00-0.40 Bilirubin, Total 0.3 mg/dL (Normal) Range: 0.0-1.2 Albumin, Serum 4.3 g/dL (Normal) Range: 3.6-4.8 Protein, Total, Serum 7.3 g/dL (Normal) Range: 6.0-8.5 :03 YWHKT-NRDVDGILIGC-EXFDI (47087) Comments: PATIENT NOT FASTINGPERFORMED BY: [employer] Mkqfpm6898 [facility] [id number] AFP, Serum, Tumor Marker 2.8 ng/mL (Normal) Range: 0.0-8.3 Comments: Rosmery ECLIA methodology :03 HEPATITIS PANEL (66731) Comments: PATIENT NOT FASTINGPERFORMED BY: [facility] [id number] Hep C Virus Ab <0.1 {s/co_ratio} (Normal) Range: 0.0-0.9 Comments: Negative: < 0.8 Indeterminate: 0.8 - 0.9 Positive: > 0.9 . The CDC recommends that a positive HCV antibody result be followed up with a HCV Nucleic Acid Amplification test (329881). Hep B Core Ab, IgM Negative (Normal) HBsAg Screen Negative (Normal) Hep A Ab, IgM Negative (Normal) :58 CBC W/Diff, Automated Comments: CBCD FOR DR CHATMANCharlton Memorial Hospitalisma [facility] [address] [place], [address] Absolute Lymph 1.84 {X10_3/ul} (Normal) Range: 0.83-4.51 [...] Comments: Order Date: 05/14/16Interface Comments: Reason:Order Date: 05/14/16[facility] [address] [place], [address] T4 THYROXIN 11.6 ug/dL (Normal) Range: 4.8-13.9 :58 Thyroid Stim Hormone (TSH) Comments: Order Date: 05/14/16Interface Comments: Reason:Order Date: 05/14/16[facility] [address] [place], [address] TSH 1.96 {uIU/mL} (Normal) Range: 0.358-3.74 :11 Urinalysis, Office (17412) UA - LEUKOCYTE ESTERASE Small (Normal) UA - NITRITE Negative (Normal) URINE UROBILINGN ZEINAB TIMED Normal mg/dL (Normal) UA - PROTEIN 30 mg/dL (Normal) UA - PH 6 (Abnormal) UA - BLOOD Negative (Normal) UA - SPECIFIC GRAVITY 1.010 (Normal) UA - KETONES Negative mg/dL (Normal) UA - BILIRUBIN Negative (Normal) UA - GLUCOSE Negative (Normal) :50 Basic Metabolic Profile (BMP) Comments: [facility] [address] [place], [address] GAP 7 (Normal) Range: 5-15 CO2 33.0 [...] 100 mg/dL (Normal) Range: 70-110 :48 MAGNESIUM (22582) Comments: PATIENT NOT FASTINGPERFORMED BY: LabCoChilton Memorial HospitalAgbclt8556 [facility] [id number] Magnesium, Serum 1.6 mg/dL (Normal) Range: 1.6-2.3 :48 TSH (THYROID STIMULATING Comments: PATIENT NOT FASTINGPERFORMED BY: LabCo Smgqhb4093 [facility] [id number] HORMONE) (05434) TSH 6.340 {uIU/mL} (Abnormal) Range: 0.450-4.500 :48 URIC ACID BLOOD (63444) Comments: PATIENT NOT FASTINGPERFORMED BY: LabCoPresbyterian Kaseman HospitalNqtwut4883 [facility] [id number] Uric Acid, Serum 6.1 mg/dL (Normal) Range: 2.5-7.1 Comments: Therapeutic target for gout patients: <6.0 :09 Blood Glucose , Office (11943) Blood Glucose , Office 116 (Normal) :09 HgA1C , Office (29421) HgA1C , Office 6.7 % (Normal) Range: 4.6 - 7.1 :19 Basic Metabolic Profile (BMP) Comments: Order Date: 03/12/16OV Order #: [id number] [address] [facility] [address] [place], [address] GAP 7 (Normal) Range: 5-15 CO2 29.0 [...] 7-18 GLU 107 mg/dL (Normal) Range: 70-110 84-Ndo-824117:19 T4 Total, Thyroxin Comments: Order Date: 03/12/16 Order #: [id number] Health Anderson Hospital [address] [place], [place], [address] T4 THYROXIN 9.4 ug/dL (Normal) Range: 4.8-13.9 :19 Thyroid Stim Hormone (TSH) Comments: Order Date: 03/12/16 Order #: [id number] Health Anderson Hospital [address]uw[address] [place], [place], [address] TSH 5.44 {uIU/mL} (Abnormal) Range: 0.358-3.74 :49 Aerobic Bacterial Culture Comments: PATIENT NOT FASTINGPERFORMED BY: [facility] Fcsarp9050 [facility] [id number] Information: RT AXILLA Result 1 MRSA (Abnormal) [...] (Normal) Comments: PATIENT NOT FASTINGPERFORMED BY: [facility] Rvnirz7879 [place] [id number] Information: NASAL 5:49 Culture 73-Huz-327169:20 Basic Metabolic Profile (BMP) Comments: [facility] [address] [place], [place], [address] GAP 7 (Normal) Range: 5-15 CO2 29.0 [...] A.D.A. criteria. :02 Blood Glucose , Office (84349) Blood Glucose , Office 137 (Normal) :54 Urine Drug Screen (Office - WNL (Normal) Comments: pos for oxy, all else neg Urine Drug Screen 6 Panel) Comments: All negative except Oxy (84789) :52 HgA1C , Office (60589) Comments: 7.3 HgA1C , Office 7.3 % (Abnormal) Range: 4.6 - 7.1 8-Kap-880916:43 Basic Metabolic Profile (BMP) Comments: DR URBINA ORDERED BMPDR MALCOLM ORDERED LIVER LIPIDWWilson Street Hospital [address]kshr[address] [place], [address] GAP 3 (Abnormal) Range: 5-15 CO2 33.0 mmol/L (Abnormal) Range: 21.0-32.0 CL 102 mmol/L (Normal) Range: 98-107 K 3.4 mmol/L (Abnormal) Range: 3.5-5.1 Comments: ADDENDA: Denisse at [facility] aware of potassium level NA 138 [...] 7-18 GLU 101 mg/dL (Normal) Range: 70-110 3-Orr-240649:43 Lipid Profile Comments: DR URBINA ORDERED BMPDR MOODISPAW ORDERED LIVER LIPIDMercy Health Anderson Hospital [address] [place], [address] VLDL 26 mg/dL (Normal) Range: [...] 200-240 mg/dL Borderline >240 mg/dL High Risk 8-Fru-290225:43 Liver Profile Comments: DR URBINA ORDERED BMPDR MOODISPAW ORDERED LIVER LIPIDMercy Health Anderson Hospital [address]zoh[address] [place], [address] D BILI 0.14 mg/dL (Normal) Range: 0.00-0.30 T BILI 0.40 mg/dL (Normal) Range: 0.20-1.00 ALT 16 U/L (Normal) Range: 12-78 ALK P 112 U/L (Normal) Range: 50-136 AST 19 U/L (Normal) Range: 15-37 GLOB 3.9 g/dL (Abnormal) Range: 2.3-3.5 ALB 3.0 g/dL (Abnormal) Range: 3.4-5.0 T PROT 6.9 g/dL (Normal) Range: 6.4-8.2 :02 Blood Glucose , Office (44461) Blood Glucose , Office 160 (Normal) :37 HgA1C , Office (30047) Comments: 7.2 HgA1C , Office 7.2 % (Abnormal) Range: 4.6 - 7.1 :24 MRSA Culture (74069) Comments: [facility] [address] [place], [place], [address] MRSA RESULT Negative (Normal) :59 Metabolic Panel, Basic Comments: send to Dr.Masroor Urbina; PATIENT NOT FASTINGPERFORMED BY: LabCoChilton Memorial HospitalGvvnif9141 [facility] [id number] Information: [id number] (51726) Calcium, Serum 10.7 mg/dL (Abnormal) Range: 8.7-10.3 [...] Glucose, Serum 182 mg/dL (Abnormal) Range: 65-99 3-Hlx-870372:09 MRSA Culture (63280) Comments: [facility] [address] [place], [address] MRSA RESULT POSITIVE (Abnormal) :39 Lipid Profile Comments: [facility] [address] [place], [address] VLDL 23 mg/dL (Normal) Range: 5-40 LDL [...] mg/dL High Risk :39 Liver Profile Comments: [facility] [address] [place], [address] ; non-emergent and handled by [...] Range: 6.4-8.2 :39 T4 Total, Thyroxin Comments: [place] [address] [place], [address] T4 THYROXIN 10.9 ug/dL (Normal) Range: 4.8-13.9 :39 Thyroid Stim Hormone (TSH) Comments: [facility] [address] [place], [address] TSH 3.63 {uIU/mL} (Normal) Range: 0.358-3.74 9-Rww-265859:13 LIPID PANEL (67919) Comments: PATIENT WAS FASTINGPERFORMED BY: [facility]6370 [facility] [id number] LDL/HDL Ratio 1.2 {ratio_units} (Normal) Range: 0.0-3.2 [...] Cholesterol, Total 160 mg/dL (Normal) Range: 100-199 7-Vxm-955579:13 CBC W/AUTO DIFF WBC Comments: PATIENT WAS FASTINGPERFORMED BY: [facility]6370 [facility] [id number] Information: [id number] (42046) Immature Grans (Abs) 0.0 {x10E3/uL} (Normal) Range: [...] 3.77-5.28 WBC 4.5 {x10E3/uL} (Normal) Range: 3.4-10.8 6-Cgh-260527:13 METABOLIC PANEL, COMPREHENSIVE Comments: PATIENT WAS FASTINGPERFORMED BY: LabCoCh[facility] Memorial HospitalFwgejv0907 [facility] [id number] (72174) ALT (SGPT) 8 [iU]/L (Normal) Range: 0-32 [...] Glucose, Serum 109 mg/dL (Abnormal) Range: 65-99 8-Wpw-015952:15 Basic Metabolic Profile (BMP) Comments: [facility] [address] [place], [place], [address] GAP 7 (Normal) Range: 5-15 CO2 30.0 [...] 200 mg/dLsuggests DIABETES MELLITUS per A.D.A. criteria. 2-Xtt-696392:15 CBC W/Diff, Automated Comments: [facility] [address] [place], [place], [address] Absolute Lymph 0.95 {X10_3/ul} (Normal) Range: 0.83-4.51 [...] K/mm3 (Normal) Range: 4.4-11.0 :31 LIPID PANEL (56048) Comments: PATIENT WAS FASTINGPERFORMED BY: LabCoCh[facility] HospitalManjrr1706 [facility] [id number]; non-emergent till apt LDL/HDL Ratio 1.6 {ratio_units} [...] Cholesterol, Total 219 mg/dL (Abnormal) Range: 100-199 64-Otc-023657:31 CBC with auto diff Comments: PATIENT WAS FASTINGPERFORMED BY: LabCoCh[facility] Memorial HospitalDjfoig7132 [facility] [id number] Information: [id number] (99599) Immature Grans (Abs) 0.0 {x10E3/uL} (Normal) Range: [...] CREATININE RATIO Comments: PATIENT WAS FASTINGPERFORMED BY: LabCoChilton Memorial HospitalWrkvyz0153 [facility] [id number] (09764) AND (64166) Microalb/Creat Ratio 93.7 {mg/g_creat} (Abnormal) Range: 0.0-30.0 Microalbumin, Urine 196.4 ug/mL (Abnormal) Range: 0.0-17.0 Creatinine, Urine 209.7 mg/dL (Normal) Range: 15.0-278.0 :31 METABOLIC PANEL, COMPREHENSIVE Comments: PATIENT WAS FASTINGPERFORMED BY: [facility]6370 [facility] [id number] (53857) ALT (SGPT) 20 [iU]/L (Normal) Range: 0-32 [...] Glucose, Serum 120 mg/dL (Abnormal) Range: 65-99 33-Bas-632123:31 Hemoglobin Glyclated (HGB A1C) Comments: PATIENT WAS FASTINGPERFORMED BY: Mulu70 [facility] [id number] (79991) Hemoglobin A1c 7.6 % (Abnormal) Range: 4.8-5.6 Comments: . Pre-diabetes: 5.7 - 6.4 Diabetes: >6.4 Glycemic control for adults with diabetes: <7.0 74-Lxm-887926:30 Urinalysis, Complete Comments: Order Date: 07/18/15How was Urine Obtained? CLEAN [facility] [address]xf[address] [place], [place], [address] MUCUS, URINE 0 SEEN {/hpf} (Normal) BACTERIA [...] (Abnormal) CLARITY Clear (Normal) COLOR Yellow (Normal) 11-Pyh-739905:43 CBC W/Diff, Automated Comments: [facility] [address] [place], [place], [address] PATH REV May foll (Normal) SMEAR COMMENT [...] 4.2-5.4 WBC 15.1 K/mm3 (Abnormal) Range: 4.4-11.0 33-Rzu-169900:43 Comprehensive Metabolic Profil Comments: [facility] [address] [place], [place], [address] GAP 8 (Normal) Range: 5-15 CO2 33.0 [...] Comments: To be drawn 6H after initial specimenWWilson Street Hospital [address] [place], [place], [address] LACTIC ACID 1.7 mmol/L (Normal) Range: 0.4-2.0 :43 Magnesium Comments: [facility] [address] [place], [place], [address](493) MG 1.3 mg/dL (Abnormal) Range: 1.8-2.4 :43 Partial Thromboplast Time Comments: [facility] [address] [place], [place], [phone] PTT 31.4 s (Normal) Range: 24.1-36.2 :43 Phosphorus Comments: [facility] [address] [place], [address] PHOS 1.0 mg/dL (Abnormal) Range: 2.5-4.9 Comments: Critical Result(s) Called at: 17:06:16 07/18/2015 by:Stacey ibarra rn 02-Aek-317911:43 Prothrombin Time w/INR Comments: [facility] [address] 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 Letter Indication: Encounter for annual general medical [...] - Strool Based DNA Test, CRC SCREEN (75420)Indication: Encounter for screening for malignant neoplasm of colon (Renamed from Special screening for malignant neoplasms, colon) On: 59-Jmg-086746:05 Request FECAL OCCULT- Tubes sent home (06739)Indication: Encounter for screening for malignant neoplasm of colon (Renamed from Special screening for malignant neoplasms, colon) On: 01-Rao-368706:09 Request Lipid Panel (75382)Indication: Diabetes mellitus type 2, insulin dependent On: 77-Quz-311326:08 Request Comments: around January Metabolic Panel, Comprehensive (53621)Indication: Diabetes mellitus type 2, insulin dependent On: 70-Chz-919773:08 Request Comments: around January CBC, Platelets & Auto Diff (62835)Indication: Diabetes mellitus type 2, insulin dependent On: 33-Kcz-101264:08 Request Comments: around January TSH (91243)Indication: Diabetes mellitus type 2, insulin dependent On: 86-Lkz-064796:08 Request Comments: around January Rapid Flu (14385 x 2)Indication: Unspecified Diagnosis On: 55-Hco-17721:33 Request CBC & PLATELETS (AUTO) (64099)Indication: Abdominal pain On: 7-Fpz-136697:57 Request CULTURE, NOSE (40410)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 On: :31 Request Comments: check for MRSA MRSA Culture (02346)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 On: :23 Request Comments: rt axila HgA1C , Office (92432)Indication: Diabetes mellitus type 2, insulin dependent On: 08-Wvy-173940:21 Request Urinalysis, Office (92692)Indication: History of MRSA infection On: 17-Nxd-199794:42 Request Hemoglobin Glyclated (HGB A1C) (90701)Indication: Diabetes mellitus type 2, uncontrolled On: 94-Wyc-247835:46 Request MICROALBUMIN: CREATININE RATIO (41645) AND (40978)Indication: Hypertensive heart disease without heart failure On: 07-Kyr-508345:46 Request Planned Encounters Medical; 3 Month FU - On: 28-Jul-2018 13:30 Comprehensive Internal Medicine Elsa Chopra CNP, CNP, Mary E Planned Procedures Overnight Pulse OX (10397)By: On: 30-Jun-2018 Intent Lee Ann Schafer DO SPIROMETRY PERFORMED (73145)By: On: 25-Jun-2018 Intent Visit, Nurse SPIROMETRY PERFORMED (19990)By: On: 25-Jun-2018 Intent Visit, Nurse SIX MINUTE WALK TEST (80532)By: On: 25-Jun-2018 Intent Visit, Nurse Flu Vaccine (Quadrivalent) 32461Ha: On: 20-May-2018 Intent Karly Chandra DEXA SCAN AXIAL SKELETON (62367)By: On: 18-Dec-2017 Intent Elsa Chopra CNP, CNP, Mary E SCREENING DIGITAL TOMOSYNTHESIS OF On: 18-Dec-2017 Intent BREAST (80718)By: Elsa Chopra CNP, CNP, Mary E Flu Vaccine (Quadrivalent) [id number]: On: 11-Jun-2017 Intent Tatianaabelardomickey MCKINLEYElsa Tatianaabelardomickey MCKINLEY [place] Comments: InfluenzaLot #[id number]-L dltd, IMDose prefilled syringeVIS and ABN signedgiven by:GENARO blackwood PHYSICAL THERAPY TREATMENT On: 11-Dec-2016 Intent (33016)By: Adelita Doshi LPN PHYSICAL THERAPY EVALUATION On: 11-Dec-2016 Intent (17550)By: Elsa Chopra CNP, CNP [place] Toradol Injection, 30 mg On: 10-Dec-2016 Intent ([id number])By: Elsa Chopra CNP, CNP [place] Radiology - Hip - RightBy: Nav On: 10-Dec-2016 Intent ARLEN OneliaMarly Chopra CNP [place] Aerosol Treatment (41211)By: Tico On: 16-Oct-2016 Intent Adelita LAM Flu Vaccine (Quadrivalent) 89076Vg: On: 11-Jul-2016 Intent Elsa Chopra CNP, CNP [place] Comments: FLUlot: [id number]:01/16site:Lt deltoidroute:IMdose:.5mlDEMICK, [place] Ultrasound - Abdomen CompleteBy: On: 03-Jul-2016 Intent Elsa Chopra CNP, CNP [place] Radiology - KUBBy: Elsa Chopra CNP On: 03-Jul-2016 Elsa Youssef CNP DRAIN/INJECT SMALL JOINT OR BURSA On: 18-May-2016 Intent ()By: Elsa Chopra CNP Comments: to left wrist joint 1/2 cc kenalog, 1/2 cc marcaine. Kenalog lot [id number] exp Marcain lot [id number] ex Elsa MCKINLEY MAMMOGRAM, SCREENING, BOTH BREAST On: 11-May-2016 Intent (27957)By: Elsa Chopra CNP, CNP, Mary E Radiology [...] mellitus without complication) : DISCONTINUED - URINALYSIS (07153) Indication: Diabetes mellitus type II, controlled, with no complications (Renamed from Controlled type 2 diabetes mellitus without complication) CKD (chronic kidney disease), stage III : DISCONTINUED - MICROALBUMIN: CREATININE RATIO (04412) AND (59664) Indication: CKD (chronic kidney disease), stage III Diabetes mellitus type II, controlled, with no complications (Renamed from Controlled type 2 diabetes mellitus without complication) : DISCONTINUED - CBC, PLATELETS & AUT DIFF (02705) Indication: Diabetes mellitus type II, controlled, with no complications (Renamed from Controlled type 2 diabetes mellitus without complication) Diabetes mellitus type II, controlled, with no complications (Renamed from Controlled type 2 diabetes mellitus without complication) : DISCONTINUED - METABOLIC PANEL, COMPREHENSIVE (72027) Indication: Diabetes mellitus type II, controlled, with no complications (Renamed from Controlled type 2 diabetes mellitus without complication) Diabetes mellitus type II, controlled, with no complications (Renamed from Controlled type 2 diabetes mellitus without complication) : DISCONTINUED - TSH (62861) Indication: Diabetes mellitus type II, controlled, with [...] dependent : DISCONTINUED - METABOLIC PANEL, BASIC (68876) Indication: Diabetes mellitus type 2, insulin dependent [...] patient does not have durable power of analytical statistician or living will. The patient has noticed getting bored, poor spirits most of time and lack of energy. Other providers contributing to the lyndsey bolton's care are whip operator () and urologist (). Note for Annual [...] and is sleeping poorly. Patient has been citibuddies End: 18-Dec-2017 14:15 pliant with instructions. Current [...] and is sleeping poorly. Patient has been citibuddies End: 18-Sep-2017 13:50 pliant with instructions. Current [...] - Reason for ER visit: note: ([facility]. ). The patient feels well with [...] MRSA. She has had pre-op testing at [facility] on 10-14-2015, for Lumbar microdecompression for 10-24-[address] work[address] Advanced Solutions Architect Dr. Dahl for papers to be signed [...] 19-Jul-2015 22:21 - sharp pain- went to [facility] ER). Current medication use: no side effects [...] surgeon- - recently went to er at [facility] on jul 14 - she was having [...]
--- OUTSIDE RECORDS SUMMARY | 2018-09-25 14:27 | XMS RPT_ITS | Continuity of Care Document ---
:1950 Author Organization [facility] Address [address] [place] [address] Phone Care Team Providers Name Role Phone Nav ARLENElsa E Unavailable Malcolm STANLEY, Casey Florian Unavailable [place] DO , Dr. Aaron Diaz Unavailable John BatistaAnnalisa Unavailable Dr. Abimael Ag Unavailable Kirby STANLEY, Jared Galeano Unavailable Pascale Boston Unavailable Slarb MAIL OFFICER, Adelita Unavailable Unavailable Long MAIL OFFICER, Dora L Unavailable Unavailable Karly Chandra Unavailable [...] 585.3) Comments: follows with Dr. Munguia in [place], seen for sarcoidosis currently, stableGFR 42 Status: [...] on wean of steroid Scale 201-250. 5 oukty537-892 8 -344 10 ixgsa979-686 12 units>401 15 unitsad ding metformin not [...] given in L arm subcutaneously paitent tolerated wellLOT#[id number]#2020 NOV 06 Status: Active Postmenopausal (Renamed from Postmenopausal status) (Z78.0, V49.81) Status: Active Pregnancies () Comments: 1. 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) Comments: Sees Ciara at [facility] for sarcoid in bone marrow just saw [...] 0 days Quantity: 60 {Tablet} Refills: 0 Ordered:14-Apr-2018 Tatianaabelardomickey MCKINLEY Elsa Leblancmickey MCKINLEY Elsa Luke Start : 14-Apr-2018 Active Comments:Oarrmackenzie rundx F41.9#60thirty days Melatonin 1 [...] days Quantity: 90 {QS} Refills: 3 Ordered:08-Jan-2018 Elysemickey MCKINLEY Elsa Leblancmickey MCKINLEY Elsa Luke Start [...] MOY Start : 18-Jul-2015 Active VITAMIN D3, 48642FINR (Oral Capsule) 1 (one) Capsule Capsule once [...] Refills: 0 Ordered:12-Mar-2016 Nav ARLEN, Elsa Reyes ARLEN, Elsa Luke Start : 12-Mar-2016 End : [...] q12hrs (100 MG) End : 05-Aug-2015 Discontinued Comments:[facility] MUPIROCIN, 2% (External Ointment) 1 (one) Ointment [...] : 05-Aug-2015 Discontinued Comments:1,250mg IV q24hrs x 86gwtw3,500mg IV q24hrs #14 Allergies and Adverse Reactions [...] Comments: was seeing Dr. Munguia's partner in [place] Dr. Morel, gfr 43%, has proteinuria Status: [...] Visit Report Result: Comments: See Note; NOTES: [facility] [address] [place] [address] OFFICE VISIT Date of Service: 02/17/18 MR#: [id number] Acct: [id number] Name: SHREYAS KATHLEEN Rep #: [id number] : 1950 Provider: Casey Fowler MD Age/Sex: 67/F Location[place] [facility] Status: Signed HPI HPI Details: SHREYAS KATHLEEN, is a 67 F who presents to the office today for for outpatien t cardiovascular follow-up of her history of underlying CAD, non-ST segment elevation AR, paroxysmal atrial fibrillation, superimposed upon a history [...] PFSH Medical History Atherosclerotic heart disease of [place] coronary artery without angina pectoris (Chronic) History [...] stenosis Assessment AND Plan 1. Atherosclerosis of [place] coronary artery of [place] heart without angina pectoris I25.10 Mild Plan [...] be scheduled for an outpatient visit in [facility] 9 months unless needed sooner. Thank you for allowing me to participate in the care of your patient. Please don't hesitate to call if any issues arise. This note was generated using a voice Nujira system and there may be incorrect words, spelling or punctuation that were not noted when reviewing the office note prior to saving. Follow Up 9 Months Coding Level of Care Code Off glen rodríguez,kelly l 4 Diagnoses Atherosclerosis of [place] coronary artery of [place] heart without angina pectoris I25.10 [place] vs. transplanted heart: [place] heart Paroxysmal atrial fibrillation I48.0 Hyperlipidemia, u nspecified hyperlipidemia type E78.5 Hyperlipidemia type: unspecified Essential hypertension I10 Hypertension type: essential hypertension Long-term use of high-risk medication Z79.899 Coding Level of Care Code Off glen rodríguez,level 4 Diagnoses Atherosclerosis of [place] coronary artery of [place] heart without angina pectoris I25.10 [place] vs. transplanted heart: [place] heart Paroxysmal atrial fibrillat ion I48.0 Hyperlipidemia, unspecified hyperlipidemia type E78.5 Hyperlipidemia type: unspecified Essential hypertension I10 Hypertension type: essential hypertension Long-term use of high-risk medicatio n Z79.899 02/17/18 1530 <Electronically signed by Casey Fowler MD> Date Casey Fowler MD Cosigner Signature: Date _ (if applicable) CC: Elsa Chopra NP 14-Feb-2018 SCREENING MAMM (CAD), BILAT Result: Comments: See Note; NOTES: [facility] Imaging Services [address] [place] [address] SCREENING MAMM (CAD), BILAT MR#: [id number] Acct: [id number] Name: SHREYAS KATHLEEN Rep #: [id number] : 1950 F 67 From: Elias Finn MD PCP: Elsa Chopra NP Status: REG CLI Study: SCREENING MAMM (CAD), BILAT Date of Exam: 02/14/18 Exam# [id number] Ordering Dr: Elsa Chopra MAMMO GRAPHY - [...] [facility] facility within [facility] days. Approximately 10% of breast cancers are not detected by mammography. A normal mammogram should not delay biopsy of a clinically suspicious abnormality. [id number] Elect ronically Signed: Elias Finn MD at 8:30 EDT Tel [phone], Service support , CC: Elsa Chopra NP Recruitment Consultant: Signed 21-Jan-2018 Dexa Bone Density Study Result: Comments: See Note; NOTES: [facility] Imaging Services [address] [place] [address] Dexa Bone Density Study MR#: [id number] Acct: [id number] Name: SHREYAS KATHLEEN Rep #: [id number] : 1950 F 67 From: Elias Finn MD PCP: Elsa Chopra NP Status: REG CLI Study: Dexa Bone Density Study Date of Exam: 01/21/18 Exam# [id number] Ordering Dr: Elsa Chopra STUDY: DUAL E [...] Elias Finn MD at 15:36 EDT Tel [phone], Service support , CC: Elsa Chopra NP Recruitment Consultant: Signed 10-Dec-2016 Hip 2-3 Views with Pelvis Result: Comments: See Note; NOTES: [facility] Imaging Services [address] [place] [address] Verdana 4d Hip 2-3 Views with Pelvis MR#: [id number] Acct: [id number] Name: SHREYAS KATHLEEN Keira Rep #: [id number] : 1950 F 66 From: Herve Jimenez MD PCP: Elsa Chopra Status: REG CLI Study: Hip 2-3 Views with Pelvis Date of Exam: 12/10/16 Exam# [id number] Ordering Dr: Elsa Chopra STUDY : X-RAY [...] FACR at 11:31 EDT , Service support [phone], CC: Elsa Chopra Recruitment Consultant: Signed 05-Jul-2016 Abdomen Complete Result: Comments: See Note; NOTES: [facility] Imaging Services [address] [place] [address] Verdana 4d Abdomen Complete MR#: [id number] Acct: [id number] Name: SHREYAS KATHLEEN Keira Rep #: [id number] : 1950 F 66 From: Elias Finn MD PCP: Elsa Chopra Status: REG CLI Study: Abdomen Complete Date of Exam: 07/05/16 Exam# [id number] Ordering Dr: Elsa Chopra STUDY: ABDOMINAL ULTRASOUND [...] Elias Finn MD at 9:35 EDT Tel [phone], Service support [phone], CC: Elsa Chopra Recruitment Consultant: Signed 05-Jul-2016 Abdomen Single View Result: Comments: See Note; NOTES: [facility] Imaging Services [address] [place] [address] Verdana 4d Abdomen Single View MR#: [id number] Acct: [id number] Name: SHREYAS KATHLEEN Rep #: [id number] : 1950 F 66 From: Elias Finn MD PCP: Elsa Chopra Status: REG CLI Study: Abdomen Single View Date of Exam: 07/05/16 Exam# [id number] Ordering Dr: Elsa Chopra STUDY: X-RA Y [...] of the L1 vertebrae. ORDER # : [id number] RAD/Abdomen Single View IMPRESSION: Moderate amount of fecal material is seen in the colon. Electronically Signed: Elias Finn MD at 10:34 EDT Tel [phone], Service sup port [phone], CC: Elsa Chopra Recruitment Consultant: Signed 18-May-2016 Bilat Scrn Digital AND CAD Result: Comments: See Note; NOTES: [facility] Imaging Services [address] [place] [address] Verdana 4d Bilat Scrn Digital AND CAD MR#: [id number] Acct: [id number] Name: JACINTO KATHLEEN Rep #: [id number] : 1950 F 65 From: Elias Finn MD PCP: Elsa Chopra Status: REG CLI Study: Bilat Scrn Digital AND CAD Date of Exam: 05/18/16 Exam# [id number] Ordering Dr: Elsa Chopra MAMMOGRAPHY - BILATERAL [...] biopsy of a clinically suspicious abnor mality. [id number] Electronically Signed: Elias Finn MD at 12:53 EDT Tel [phone], Service support [phone], CC: Elsa Chopra Recruitment Consultant: Signed 14-Feb-2016 Shoulder min 2 Views Result: Comments: See Note; NOTES: [facility] Imaging Services [address] [place] [address] Oscar 4d Shoulder min 2 Views MR#: [id number] Acct: [id number] Name: SHREYAS KATHLEEN Rep #: [id number] : 1950 F 65 From: Herve Jimenez MD PCP: Madeline Florez DO Status: REG CLI Study: Shoulder min 2 Views Date of Exam: 02/14/16 Exam# [id number] Ordering Dr: Pascale Boston DO STUDY: X-RAY [...] FACR at 14:50 EDT , Service support [phone], Fax RAD/Shoulder min 2 Views IMPRESSION: Bilateral of the acromioclavicular joint, otherwise normal x-ray examination of the shoulder. Electronically Signed: Herve Jimenez MD, FACR at 14:50 EDT , Service support [phone], CC: Pascale Boston DO; Madeline Florez DO Recruitment Consultant: Signed 21-Oct-2015 Spirometry (74570) Comments: mod restriction Result: 19-Sep-2015 Chest PA and Lateral Result: Comments: See Note; NOTES: [facility] Services [address] [facility] [place] [address] Verdana 4d Chest PA and Lateral MR#: [id number] Acct: [id number] Name: SHREYAS KATHLEEN Rep #: [id number] : 1950 F 65 From: Elias Finn MD PCP: Madeline Florez DO Status: REG CLI Study: Chest PA and Lateral Date of Exam: 09/19/15 Exam# [id number] Ordering Dr: Madeline Florez DO STUDY: X-RAY [...] Elias Finn MD at 13:58 EST Tel [phone], Service support [phone], RAD/Chest PA and Lateral IMPRESSION: Stable examination. No acute abnormality is seen. Electronically Doris d: Elias Finn MD at 13:58 EST Tel [phone], Service support [phone], CC: Madeline Florez DO Recruitment Consultant: Signed 25-Aug-2015 Spine Lumbar (Routine) Result: Comments: See Note; NOTES: [facility] Imaging Services [address] [place] [address] Verdana 4d Spine Lumbar (Routine) MR#: [id number] Acct: [id number] Name: SHREYAS MAJOR Rep #: [id number] : 1950 F 65 From: Herve Jimenez MD PCP: Madeline Florez DO Status: REG CLI Study: Spine Lumbar (Routine) Date of Exam: 08/25/15 Exam# [id number] Ordering Dr: ELIZABETH DE LEON M.D. STUDY: [...] FACR at 17:43 EST , Service support [phone], CC: ELIZABETH DE LEON M.D.; Madeline Florez DO Recruitment Consultant: Signed 25-Aug-2015 Spine Thoracic (Routine) Result: Comments: See Note; NOTES: [facility] Imaging Services [address] [place] [address] 4d Spine Thoracic (Routine) MR#: [id number] Acct: [id number] Name: SHREYAS SHARIF Keira Rep #: [id number] : 1950 F 65 From: Herve Jimenez MD PCP: Madeline Florez DO Status: REG CLI Study: Spine Thoracic (Routine) Date of Exam: 08/25/15 Exam# [id number] Ordering Dr: ELIZABETH RUIZ M.D. STUDY: MRI [...] FACR at 17:45 EST , Service support [phone], CC: ELIZABETH DE LEON M.D.; Komal Florez DO Recruitment Consultant: Signed 17-Aug-2015 Chest PA and Lateral Result: Comments: See Note; NOTES: [facility] Imaging Services [address] [place] [address] Verdana 4d Chest PA and Lateral MR#: [id number] Acct: [id number] Name: SHREYAS KATHLEEN Rep #: [id number] : 1950 F 65 From: Elias Finn MD PCP: Madeline Florez DO Status: REG CLI Study: Chest PA and Lateral Date of Exam: 08/17/15 Exam# [id number] Ordering Dr: Madeline Florez DO STUDY: X-RAY [...] Elias Finn MD at 11:09 EST Tel [phone], Service support [phone], Fax RAD/Chest PA and Lateral IMPRESSION: Residual changes persist in the right middle lobe and there has been some improvement. Further followup is recommended. Electr onically Signed: Elias Finn MD at 11:09 EST Tel [phone], Service support [phone], CC: Madeline Florez DO Recruitment Consultant: Signed 12-Aug-2015 Discharge Instruction Result: Comments: See Note; NOTES: [facility] Medical Records Department [address] [place] [address] Discharge Instruction 08/10/15 1702 MR#: [id number] Acct: [id number] Name: SHREYAS KATHLEEN Rep #: [id number] : 1950 65 From: Denny Bone MD [...] problems, contact your doctor. Call [facility] ([phone]) or report to the closest Emergency Room. Call 911 if necessary. 08/12/15 1502 <Elect ronically signed by Denny Bone MD> Date Denny Bone MD Cosigner Signature (If Indicated): Date CC: Madeline Florez DO 12-Aug-2015 Emergency Department Summary Result: Comments: See Note; NOTES: [facility] Medical Records Department [address] [place] [address] Emergency Department Summary MR#: [id number] Acct: [id number] Name: SHREYAS KATHLEEN Rep #: [id number] : 1950 65 From: Denny Bone MD [...] the patient had blood cultures obtained at [facility] and they were called to Dr. Arenas [...] Nacho Ramirez C: Madeline Bonilla MD T: [facility] JOB: [id number] 08/12/15 1502 <Electronically signed by Denny Bone MD> Date Denny Bone MD Cosigner Signature (If Indicated): Date ___ CC: Madeline Florez DO; Katelyn Arenas MD Date Dictated: 08/10/151708 Date Transcribed: 08/10/151708 Recruitment Consultant: Signed Social History Name Dates Details No [...] kg/m2 Body Surface Area Calculated 1.85 m2 91-Ocl-989903:20 Temperature 97.8 f Comments: Method: Temporal Pulse [...] kg/m2 Body Surface Area Calculated 1.97 m2 84-Guf-048343:34 BP Systolic 130 mm[Hg] Comments: Patient Position: Sitting BP Diastolic 80 mm[Hg] Comments: Patient Position: Sitting 73-Min-787523:03 Temperature 98 f Comments: Method: Temporal Pulse [...] Comments: Jun 19; PATIENT WAS FASTINGPERFORMED BY: VARSITY MEDIA GROUPInspira Medical Center WoodburyUyntrm9486 [facility] [id number] (69130) AND (60597) Alb/Creat Ratio 266.9 {mg/g_creat} (Abnormal) Range: 0.0-30.0 Albumin, Urine 168.7 ug/mL (Normal) Creatinine, Urine 63.2 mg/dL (Normal) :00 Metabolic Panel, Comprehensive Comments: Jun 19; PATIENT WAS FASTINGPERFORMED BY: VARS[facility] MEDIA GROUPInspira Medical Center WoodburyJvqviw1891 [facility] [id number] (23107) ALT (SGPT) 14 [iU]/L (Normal) Range: 0-32 [...] 8-27 Glucose 121 mg/dL (Abnormal) Range: 65-99 67-Ssc-46868:00 HGB A1C (69922) Comments: June 19; PATIENT WAS FASTINGPERFORMED BY: Prim LaundryFirstHealth [facility] [id number] Hemoglobin A1c 7.0 % (Abnormal) Range: 4.8-5.6 Comments: . Prediabetes: 5.7 - 6.4 Diabetes: >6.4 Glycemic control for adults with diabetes: <7.0 43-Eqc-225028:33 ALKALINE PHOSPHATASE-ISOENZYM Comments: PATIENT NOT FASTINGPERFORMED BY: Prim LaundryFirstHealth [facility] Hospital [id number] (11466) Intestinal Frac.: 0 % (Normal) Range: 0-18 Bone Fraction: 27 % (Normal) Range: 14-68 Liver Fraction: 73 % (Normal) Range: 18-85 Alkaline Phosphatase 89 [iU]/L (Normal) Range: 39-117 25-Ecj-642302:33 CBC, Platelets & Auto Diff Comments: PATIENT NOT FASTINGPERFORMED BY: Prim LaundryFirstHealth [facility] Hospital [id number] (86772) Immature Grans (Abs) 0.0 {x10E3/uL} (Normal) Range: [...] 3.77-5.28 WBC 5.9 {x10E3/uL} (Normal) Range: 3.4-10.8 24-Hdx-074580:22 HgA1C , Office (14807) Comments: 7.3 HgA1C , Office 7.3 % (Abnormal) Range: 4.6 - 7.1 72-Vrh-872025:22 Blood Glucose , Office (51227) Blood Glucose , Office 173 (Normal) 03-Vpe-69573:40 Basic Metabolic Profile (BMP) Comments: SEND RESULTS OF BMP TO .[facility] [address] [place], [address] GAP 11 (Normal) Range: 5-15 CO2 27.0 [...] A.D.A. criteria.Please note revised GLUCOSE reference range jmkaiagoo82/02/2018. 30-Yua-24494:40 Liver Profile Comments: SEND RESULTS OF BMP TO .[facility] [address] [place], [address] D BILI 0.09 mg/dL (Normal) Range: 0.00-0.30 T BILI 0.40 mg/dL (Normal) Range: 0.20-1.00 ALT 22 U/L (Normal) Range: 13-56 ALK P 103 U/L (Normal) Range: 45-117 AST 17 U/L (Normal) Range: 15-37 GLOB 4.0 g/dL (Normal) Range: 2.2-4.2 ALB 3.8 g/dL (Normal) Range: 3.2-5.0 T PROT 7.8 g/dL (Normal) Range: 6.4-8.2 94-Mct-687840:41 CALCIFEDIOL (08985) Comments: PATIENT WAS FASTINGPERFORMED BY: LabCoInspira Medical Center WoodburyYsdybq9621 [facility] [id number] Vitamin D, 25-Hydroxy 44.2 ng/mL (Normal) Range: 30.0-100.0 Comments: Vitamin D deficiency has been defined by the [place] of[place]icine and an Endocrine Society practice guideline as alevel of serum 25-OH vitamin D less than 20 ng/mL (1,2).The Endocrine Society went on to further define vitamin Dinsufficiency as a level between 21 and 29 ng/mL (2).1. IOM ([place] of Medicine). 2010. Dietary reference intakes for calcium and D. [place]: The National Academies Press.2. Jacinto MF, Eddy NOGUEIRA, Quintin JAVED, et al. Evaluation, treatment, and prevention of vitamin D deficiency: an Endocrine Society clinical practice guideline. JCEM. 2010; 96(7):1911-30. 65-Chg-476429:41 METABOLIC PANEL, Comments: PATIENT WAS FASTINGPERFORMED BY: LabCoInspira Medical Center WoodburyHijpeo5628 [facility] [id number] Information: 643184,H81868; OV 03/19 COMPREHENSIVE (65143) ALT (SGPT) 15 [iU]/L (Normal) Range: 0-32 [...] 8-27 Glucose 143 mg/dL (Abnormal) Range: 65-99 87-Poh-086717:31 Blood Glucose , Office (65106) Blood Glucose , Office 211 (Normal) 29-Bcu-607580:31 HgA1C , Office (29005) HgA1C , Office 6.8 % (Normal) Range: 4.6 - 7.1 16-Qzy-816583:33 CBC, Platelets & Auto Diff Comments: PATIENT WAS FASTINGPERFORMED BY: LabCoInspira Medical Center WoodburyUkcmeu7846 [facility] [id number] (58422) Immature Grans (Abs) 0.0 {x10E3/uL} (Normal) Range: [...] 3.77-5.28 WBC 7.7 {x10E3/uL} (Normal) Range: 3.4-10.8 41-Kxm-812717:33 Lipid Panel (64910) Comments: PATIENT WAS FASTINGPERFORMED BY: [employer] Ftjbfw7666 [facility] [id number] LDL/HDL Ratio 0.9 {ratio} (Normal) Range: 0.0-3.2 [...] Panel, Comprehensive Comments: PATIENT WAS FASTINGPERFORMED BY: Edgeiolin6370 [facility] [id number] (52305) ALT (SGPT) 18 [iU]/L (Normal) Range: 0-32 [...] CREATININE RATIO Comments: PATIENT WAS FASTINGPERFORMED BY: Prim LaundryFirstHealth [facility] [id number] (75442) AND (56188) Alb/Creat Ratio 225.5 {mg/g_creat} (Abnormal) Range: 0.0-30.0 Albumin, Urine 112.5 ug/mL (Normal) Creatinine, Urine 49.9 mg/dL (Normal) :33 URINALYSIS (96726) Comments: PATIENT WAS FASTINGPERFORMED BY: Prim LaundryFirstHealth [facility] Hospital [id number] Microscopic Examination See below: (Normal) Comments: Microscopic was indicated and was performed. Nitrite, Urine Negative (Normal) Urobilinogen,Semi-Qn 0.2 mg/dL (Normal) Range: 0.2-1.0 Bilirubin Negative (Normal) Occult Blood Negative (Normal) Ketones Negative (Normal) Glucose Negative (Normal) Protein Trace (Normal) WBC Esterase 2+ (Abnormal) Appearance Clear (Normal) Urine-Color Yellow (Normal) pH 6.5 (Normal) Range: 5.0-7.5 Specific [place] 1.014 (Normal) Range: 1.005-1.030 :33 TSH (26879) Comments: PATIENT WAS FASTINGPERFORMED BY: Prim LaundryFirstHealth [facility] [id number] TSH 3.870 {uIU/mL} (Normal) Range: 0.450-4.500 36-Pqn-740691:33 Microscopic Examination Comments: PATIENT WAS FASTINGPERFORMED BY: Prim LaundryFirstHealth [facility] Hospital [id number] Bacteria Few (Normal) Mucus Threads Present (Normal) Cast Type Hyaline casts (Normal) Casts Present {/lpf} (Abnormal) Epithelial Cells (non renal) >10 {/hpf} (Abnormal) Range: 0 - 10 RBC 0-2 {/hpf} (Normal) Range: 0 - 2 WBC 11-30 {/hpf} (Abnormal) Range: 0 - 5 :57 HgA1C , Office (24908) Comments: 6.6 HgA1C , Office 6.6 % (Normal) Range: 4.6 - 7.1 :57 Blood Glucose , Office (60648) Blood Glucose , Office 211 (Normal) :53 HEPATIC FUNCTION PANEL Comments: PATIENT NOT FASTINGPERFORMED BY: Prim LaundryFirst[facility] [id number] (27670) ALT (SGPT) 13 [iU]/L (Normal) Range: 0-32 AST (SGOT) 17 [iU]/L (Normal) Range: 0-40 Alkaline Phosphatase, S 89 [iU]/L (Normal) Range: 39-117 Bilirubin, Direct 0.08 mg/dL (Normal) Range: 0.00-0.40 Bilirubin, Total <0.2 mg/dL (Normal) Range: 0.0-1.2 Albumin, Serum 4.2 g/dL (Normal) Range: 3.6-4.8 Protein, Total, Serum 6.8 g/dL (Normal) Range: 6.0-8.5 :53 OOMWD-AMJTBGGOIQI-MBGYP (26859) Comments: PATIENT NOT FASTINGPERFORMED BY: [employer] Haozu.comFirstHealth [facility] Hospital [id number] AFP, Serum, Tumor Marker 2.6 ng/mL (Normal) Range: 0.0-8.3 Comments: Rosmery ECLIA methodology :53 ALKALINE PHOSPHATASE-ISOENZYM Comments: PATIENT NOT FASTINGPERFORMED BY: Prim LaundryFirstHealth [facility] Hospital [id number] (77789) Intestinal Frac.: 5 % (Normal) Range: 0-18 Bone Fraction: 24 % (Normal) Range: 14-68 Liver Fraction: 71 % (Normal) Range: 18-85 19-Xnl-872751:11 ALKALINE PHOSPHATASE-ISOENZYM Comments: PATIENT NOT FASTINGPERFORMED BY: [facility] Wmgtll[address] RoadDublin [place] [id number] (90941) Intestinal Frac.: 3 % (Normal) Range: 0-18 Bone Fraction: 19 % (Normal) Range: 14-68 Liver Fraction: 78 % (Normal) Range: 18-85 Alkaline Phosphatase, S 122 [iU]/L (Abnormal) Range: 39-117 01-Mwd-623383:11 CALCIFEDIOL (31957) Comments: PATIENT NOT FASTINGPERFORMED BY: [facility] Yzakus7[address] RoadDublin [place] [id number] Vitamin D, 25-Hydroxy 37.5 ng/mL (Normal) Range: 30.0-100.0 Comments: Vitamin D deficiency has been defined by the [place] of[place]icine and an Endocrine Society practice guideline as alevel of serum 25-OH vitamin D less than 20 ng/mL (1,2).The Endocrine Society went on to further define vitamin Dinsufficiency as a level between 21 and 29 ng/mL (2).1. IOM ([place] of [place]). 2010. Dietary reference intakes for calcium and D. [place]: The National Academies Press.2. Jacinto MF, Eddy NC, Anay-Gonzalo JAVED, et al. Evaluation, treatment, and prevention of vitamin D deficiency: an Endocrine Society clinical practice guideline. JCEM. 2010; 96(7):1911-30. 22-Lds-193484:11 TSH (16345) Comments: PATIENT NOT FASTINGPERFORMED BY: [facility] Xaoqaa60[address] RoadDublin [place] [id number] TSH 1.620 {uIU/mL} (Normal) Range: 0.450-4.500 91-Xgm-794885:11 T4, FREE (THYROXINE) (07804) Comments: PATIENT NOT FASTINGPERFORMED BY: [facility] Ckcgvn3029 [address] RoadDublin [place] [id number] T4,Free(Direct) 1.00 ng/dL (Normal) Range: 0.82-1.77 02-Qwj-608958:11 T3, FREE (TRIDOTHYRONINE) (24532) Comments: PATIENT NOT FASTINGPERFORMED BY: [facility] Fonnpy6754 [facility] [id number] Triiodothyronine,Free,Serum 2.5 pg/mL (Normal) Range: 2.0-4.4 :08 HgA1C , Office (58696) HgA1C , Office 7.4 % (Abnormal) Range: 4.6 - 7.1 :08 Blood Glucose , Office (79017) Blood Glucose , Office 190 (Normal) :30 Lipid Profile Comments: Order Date: 12/12/16Order Info: 0788-1 - *Hepatic Function PanelOrder Info: 09018-0 - *Lipid Profile CC PCPComments: 12 hours fasting, may have water.Comments: 6 months / [facility] Vngyrfzfks4855 [facility] [address] [place], [place], [address] VLDL 46 mg/dL (Abnormal) Range: 5-40 LDL [...] Info: 0788-1 - *Hepatic Function PanelOrder Info: 29472-5 - *Lipid Profile CC PCPComments: 12 hours fasting, may have water.Comments: 6 months / [facility]WMer[facility] [address]ny[address] [place], [place], [id number] D BILI 0.11 mg/dL (Normal) Range: 0.00-0.30 T BILI 0.40 mg/dL (Normal) Range: 0.20-1.00 ALT 19 U/L (Normal) Range: 12-78 ALK P 132 U/L (Abnormal) Range: 45-117 AST 15 U/L (Normal) Range: 15-37 GLOB 4.3 g/dL (Abnormal) Range: 2.3-3.5 ALB 3.5 g/dL (Normal) Range: 3.4-5.0 T PROT 7.8 g/dL (Normal) Range: 6.4-8.2 6-Ovg-668686:55 TSH (THYROID STIMULATING Comments: Week of Apr 09; PATIENT NOT FASTINGPERFORMED BY: Prim LaundryFirstHealth Moore Regional Hospital [id number] HORMONE) (40771) TSH 0.728 {uIU/mL} (Normal) Range: 0.450-4.500 :55 HgA1C , Office (07608) HgA1C , Office 6.9 % (Normal) Range: 4.6 - 7.1 :55 Blood Glucose , Office (77428) Blood Glucose , Office 143 (Normal) 48-Pct-175036:11 Microscopic Examination Comments: PATIENT WAS FASTINGPERFORMED BY: Prim LaundryFirstHealth [facility] Hospital [id number] Bacteria Few (Normal) Mucus Threads Present (Normal) Cast Type Hyaline casts (Normal) Casts Present {/lpf} (Abnormal) Epithelial Cells (non renal) 0-10 {/hpf} (Normal) Range: 0 - 10 RBC 0-2 {/hpf} (Normal) Range: 0 - 2 WBC 6-10 {/hpf} (Abnormal) Range: 0 - 5 74-Yaa-863610:11 URINALYSIS, W/ MICRO (06773) Comments: January 2017; PATIENT WAS FASTINGPERFORMED BY: Prim LaundryFirstHealth [facility] Hospital [id number] Microscopic Examination See below: (Normal) Comments: Microscopic was indicated and was performed. Nitrite, Urine Negative (Normal) Urobilinogen,Semi-Qn 0.2 mg/dL (Normal) Range: 0.2-1.0 Bilirubin Negative (Normal) Occult Blood Negative (Normal) Ketones Negative (Normal) Glucose Trace (Abnormal) Protein 1+ (Abnormal) WBC Esterase 1+ (Abnormal) Appearance Clear (Normal) Urine-Color Yellow (Normal) pH 6.5 (Normal) Range: 5.0-7.5 Specific [place] 1.016 (Normal) Range: 1.005-1.030 29-Mni-745171:11 MICROALBUMIN: CREATININE RATIO Comments: January 2017; PATIENT WAS FASTINGPERFORMED BY: [employer] Ramyiq9985 [facility] HospitalLEDnovation, Inc.[facility] [id number] ([id number]) AND (48237) Microalb/Creat Ratio 208.2 {mg/g_creat} (Abnormal) Range: 0.0-30.0 Microalbumin, Urine 182.2 ug/mL (Normal) Creatinine, Urine 87.5 mg/dL (Normal) 23-Irr-546432:11 CBC, Platelets & Auto Diff Comments: January 2017; PATIENT WAS FASTINGPERFORMED BY: [place] Uwvkth4930 Haozu.comFirstHealth [facility] Hospital [id number] (47045) Immature Grans (Abs) 0.0 {x10E3/uL} (Normal) Range: [...] 3.77-5.28 WBC 5.6 {x10E3/uL} (Normal) Range: 3.4-10.8 65-Zpc-001712:11 Metabolic Panel, Comprehensive Comments: January 2017; PATIENT WAS FASTINGPERFORMED BY: LabCoInspira Medical Center WoodburyNrbuxc9837 [facility] [id number] (81254) ALT (SGPT) 13 [iU]/L (Normal) Range: 0-32 [...] Glucose, Serum 120 mg/dL (Abnormal) Range: 65-99 48-Rtc-296945:11 TSH (THYROID STIMULATING Comments: January 2017; PATIENT WAS FASTINGPERFORMED BY: [facility] Sndxeh9887 [facility] [id number] HORMONE) (26486) TSH 0.982 {uIU/mL} (Normal) Range: 0.450-4.500 1-Rhe-748219:02 Lipid Profile Comments: Order Date: 12/04/16Order Info: [id number] - *Hepatic Function PanelOrder Date: 12/04/16Order Info: [id number] - *Lipid Profile CC PCPComments: 12 hours fasting, may have water.[place] [address] [place], [place], [id number] VLDL 36 mg/dL (Normal) Range: 5-40 LDL [...] 200-240 mg/dL Borderline >240 mg/dL High Risk 8-Fwg-552500:02 Liver Profile Comments: Order Date: 12/04/16Order Info: [id number] - *Hepatic Function PanelOrder Date: 12/04/16Order Info: [id number] - *Lipid Profile CC PCPComments: 12 hours fasting, may have water.[place] [address] [place], [place], [address] D BILI 0.07 mg/dL (Normal) Range: 0.00-0.30 T BILI 0.30 mg/dL (Normal) Range: 0.20-1.00 ALT 21 U/L (Normal) Range: 12-78 ALK P 112 U/L (Normal) Range: 45-117 AST 19 U/L (Normal) Range: 15-37 GLOB 3.8 g/dL (Abnormal) Range: 2.3-3.5 ALB 3.4 g/dL (Normal) Range: 3.4-5.0 T PROT 7.2 g/dL (Normal) Range: 6.4-8.2 17-Yni-719446:29 URINE RANDELL CULTURE-ZEINAB COL Comments: PATIENT NOT FASTINGPERFORMED BY: LamppostZuni HospitalYdbagi9138 [facility] [id number] Information: SRC:UC COUNT (06964) Result 1 MUG (Normal) Comments: Mixed urogenital flora25,000-50,000 colony forming units per mL Urine Final report (Normal) Culture,Comprehensive 71-Gcu-066272:53 Urinalysis, Office (70452) UA - LEUKOCYTE ESTERASE Small (Normal) UA - NITRITE Negative (Normal) URINE UROBILINGN ZEINAB TIMED Normal mg/dL (Normal) UA - PROTEIN Negative mg/dL (Normal) UA - PH 7 (Normal) UA - BLOOD Negative (Normal) UA - SPECIFIC GRAVITY 1.020 (Normal) UA - KETONES Negative mg/dL (Normal) UA - BILIRUBIN Small (Normal) UA - GLUCOSE Negative (Normal) 95-Wmm-862138:51 Blood Glucose , Office (67709) Comments: 169 Blood Glucose , Office 169 (Normal) :52 HgA1C , Office (50023) Comments: 7.0 HgA1C , Office 7.0 % (Normal) Range: 4.6 - 7.1 :22 URINE RANDELL CULTURE-IDENTIFICATN Comments: PATIENT NOT FASTINGPERFORMED BY: LabSurgeons Choice Medical Center6370 [facility] [id number] Information: SRC:UC (90817) Result 1 MUG (Normal) Comments: Mixed urogenital flora10,000-25,000 colony forming units per mL Urine Final report (Normal) Culture,Comprehensive 36-Apx-725396:05 Urinalysis, Office (62256) UA - LEUKOCYTE ESTERASE Negative (Normal) UA - NITRITE Negative (Normal) URINE UROBILINGN ZEINAB TIMED Normal mg/dL (Normal) UA - PROTEIN 30 mg/dL (Normal) UA - PH 6 (Abnormal) UA - BLOOD non-hemolyzed trace (Normal) UA - SPECIFIC GRAVITY 1.020 (Normal) UA - KETONES Negative mg/dL (Normal) UA - BILIRUBIN Negative (Normal) UA - GLUCOSE 100 (Abnormal) :42 HgA1C , Office (08480) HgA1C , Office 6.2 % (Normal) Range: 4.6 - 7.1 :42 Blood Glucose , Office (52113) Blood Glucose , Office 137 (Normal) :01 TSH (THYROID STIMULATING Comments: PATIENT NOT FASTINGPERFORMED BY: [place] [employer] [facility] [id number] HORMONE) (55206) TSH 1.820 {uIU/mL} (Normal) Range: 0.450-4.500 :03 HEPATIC FUNCTION PANEL Comments: PATIENT NOT FASTINGPERFORMED BY: [employer] [facility] [id number] (15857) ALT (SGPT) 15 [iU]/L (Normal) Range: 0-32 AST (SGOT) 23 [iU]/L (Normal) Range: 0-40 Alkaline Phosphatase, S 95 [iU]/L (Normal) Range: 39-117 Bilirubin, Direct 0.12 mg/dL (Normal) Range: 0.00-0.40 Bilirubin, Total 0.3 mg/dL (Normal) Range: 0.0-1.2 Albumin, Serum 4.3 g/dL (Normal) Range: 3.6-4.8 Protein, Total, Serum 7.3 g/dL (Normal) Range: 6.0-8.5 :03 OZDOO-ZSHNVMETBQT-XJMXN (24272) Comments: PATIENT NOT FASTINGPERFORMED BY: [employer] [facility] [id number] AFP, Serum, Tumor Marker 2.8 ng/mL (Normal) Range: 0.0-8.3 Comments: Rosmery ECLIA methodology :03 HEPATITIS PANEL (71145) Comments: PATIENT NOT FASTINGPERFORMED BY: [employer] [facility] [id number] Hep C Virus Ab <0.1 {s/co_ratio} (Normal) Range: 0.0-0.9 Comments: Negative: < 0.8 Indeterminate: 0.8 - 0.9 Positive: > 0.9 . The CDC recommends that a positive HCV antibody result be followed up with a HCV Nucleic Acid Amplification test (122523). Hep B Core Ab, IgM Negative (Normal) HBsAg Screen Negative (Normal) Hep A Ab, IgM Negative (Normal) :58 CBC W/Diff, Automated Comments: CBCD FOR DR CHATMANHubbard Regional Hospitalisma [address]ynxgdbhge[address] [place], [address] Absolute Lymph 1.84 {X10_3/ul} (Normal) Range: 0.83-4.51 [...] Comments: Order Date: 05/14/16Interface Comments: Reason:Order Date: 05/14/16[facility] [address] [place], [address] T4 THYROXIN 11.6 ug/dL (Normal) Range: 4.8-13.9 :58 Thyroid Stim Hormone (TSH) Comments: Order Date: 05/14/16Interface Comments: Reason:Order Date: 05/14/16[facility] [address] [place], [address] TSH 1.96 {uIU/mL} (Normal) Range: 0.358-3.74 :11 Urinalysis, Office (61597) UA - LEUKOCYTE ESTERASE Small (Normal) UA - NITRITE Negative (Normal) URINE UROBILINGN ZEINAB TIMED Normal mg/dL (Normal) UA - PROTEIN 30 mg/dL (Normal) UA - PH 6 (Abnormal) UA - BLOOD Negative (Normal) UA - SPECIFIC GRAVITY 1.010 (Normal) UA - KETONES Negative mg/dL (Normal) UA - BILIRUBIN Negative (Normal) UA - GLUCOSE Negative (Normal) :50 Basic Metabolic Profile (BMP) Comments: [facility] [address] [place], [address] GAP 7 (Normal) Range: 5-15 CO2 33.0 [...] 100 mg/dL (Normal) Range: 70-110 :48 MAGNESIUM (43365) Comments: PATIENT NOT FASTINGPERFORMED BY: LabCoInspira Medical Center WoodburyShhfce0311 [facility] [id number] Magnesium, Serum 1.6 mg/dL (Normal) Range: 1.6-2.3 :48 TSH (THYROID STIMULATING Comments: PATIENT NOT FASTINGPERFORMED BY: LabCo Evcfzs2488 [facility] [id number] HORMONE) (46088) TSH 6.340 {uIU/mL} (Abnormal) Range: 0.450-4.500 :48 URIC ACID BLOOD (27587) Comments: PATIENT NOT FASTINGPERFORMED BY: LabCoZuni HospitalBbnqfl3090 [facility] [id number] Uric Acid, Serum 6.1 mg/dL (Normal) Range: 2.5-7.1 Comments: Therapeutic target for gout patients: <6.0 :09 Blood Glucose , Office (73250) Blood Glucose , Office 116 (Normal) :09 HgA1C , Office (46442) HgA1C , Office 6.7 % (Normal) Range: 4.6 - 7.1 :19 Basic Metabolic Profile (BMP) Comments: Order Date: 03/12/16OV Order #: [id number] Hospital [address] [place], [address] GAP 7 (Normal) Range: 5-15 CO2 29.0 [...] 7-18 GLU 107 mg/dL (Normal) Range: 70-110 57-Zis-700021:19 T4 Total, Thyroxin Comments: Order Date: 03/12/16 Order #: [id number] County Memorial Hospital [facility] [address] [place], [place], [address] T4 THYROXIN 9.4 ug/dL (Normal) Range: 4.8-13.9 :19 Thyroid Stim Hormone (TSH) Comments: Order Date: 03/12/16 Order #: [id number] County [facility] Hospital [facility] [address]uksvyi[address] [place], [place], [address] TSH 5.44 {uIU/mL} (Abnormal) Range: 0.358-3.74 :49 Aerobic Bacterial Culture Comments: PATIENT NOT FASTINGPERFORMED BY: [facility] Bcrkcl3760 [facility] [id number] Information: RT AXILLA Result 1 MRSA (Abnormal) [...] (Normal) Comments: PATIENT NOT FASTINGPERFORMED BY: [facility] Fwechu2083 [place] [id number] Information: NASAL 5:49 Culture 47-Ezl-182675:20 Basic Metabolic Profile (BMP) Comments: [facility] [address]fed[address] [place], [place], [address] GAP 7 (Normal) Range: 5-15 CO2 29.0 [...] A.D.A. criteria. :02 Blood Glucose , Office (45642) Blood Glucose , Office 137 (Normal) :54 Urine Drug Screen (Office - WNL (Normal) Comments: pos for oxy, all else neg Urine Drug Screen 6 Panel) Comments: All negative except Oxy (91832) :52 HgA1C , Office (25228) Comments: 7.3 HgA1C , Office 7.3 % (Abnormal) Range: 4.6 - 7.1 2-Sdf-051445:43 Basic Metabolic Profile (BMP) Comments: DR URBINA ORDERED BMPDR MALCOLM ORDERED LIVER LIPIDWCorey Hospital [address]rfofjff[address] [place], [address] GAP 3 (Abnormal) Range: 5-15 CO2 33.0 mmol/L (Abnormal) Range: 21.0-32.0 CL 102 mmol/L (Normal) Range: 98-107 K 3.4 mmol/L (Abnormal) Range: 3.5-5.1 Comments: ADDENDA: [facility] NA 138 [...] 7-18 GLU 101 mg/dL (Normal) Range: 70-110 0-Aew-205180:43 Lipid Profile Comments: DR URBINA ORDERED BMPDR MOODISPAW ORDERED LIVER LIPIDLake County [facility] [address] [place], [address] VLDL 26 mg/dL (Normal) Range: [...] 200-240 mg/dL Borderline >240 mg/dL High Risk 9-Tcm-402225:43 Liver Profile Comments: DR URBINA ORDERED BMPDR MOODISPAW ORDERED LIVER LIPIDLake County Memorial Hospital [facility] [address]ivioe[address] [place], [address] D BILI 0.14 mg/dL (Normal) Range: 0.00-0.30 T BILI 0.40 mg/dL (Normal) Range: 0.20-1.00 ALT 16 U/L (Normal) Range: 12-78 ALK P 112 U/L (Normal) Range: 50-136 AST 19 U/L (Normal) Range: 15-37 GLOB 3.9 g/dL (Abnormal) Range: 2.3-3.5 ALB 3.0 g/dL (Abnormal) Range: 3.4-5.0 T PROT 6.9 g/dL (Normal) Range: 6.4-8.2 :02 Blood Glucose , Office (40167) Blood Glucose , Office 160 (Normal) :37 HgA1C , Office (42742) Comments: 7.2 HgA1C , Office 7.2 % (Abnormal) Range: 4.6 - 7.1 :24 MRSA Culture (79428) Comments: [facility] [address] [place], [place], [address] MRSA RESULT Negative (Normal) :59 Metabolic Panel, Basic Comments: send to Dr.Masroor Urbina; PATIENT NOT FASTINGPERFORMED BY: LabCoInspira Medical Center WoodburyVbiyml0130 [facility] [id number] Information: [id number] (87442) Calcium, Serum 10.7 mg/dL (Abnormal) Range: 8.7-10.3 [...] Glucose, Serum 182 mg/dL (Abnormal) Range: 65-99 8-Zdy-604992:09 MRSA Culture (43519) Comments: [facility] [address] [place], [address] MRSA RESULT POSITIVE (Abnormal) :39 Lipid Profile Comments: [facility] [address] [place], [address] VLDL 23 mg/dL (Normal) Range: 5-40 LDL [...] mg/dL High Risk :39 Liver Profile Comments: [facility] [address] [place], [address] ; non-emergent and handled by [...] Range: 6.4-8.2 :39 T4 Total, Thyroxin Comments: [place] [address] [place], [address] T4 THYROXIN 10.9 ug/dL (Normal) Range: 4.8-13.9 :39 Thyroid Stim Hormone (TSH) Comments: [facility] [address] [place], [address] TSH 3.63 {uIU/mL} (Normal) Range: 0.358-3.74 2-Pfc-705821:13 LIPID PANEL (31626) Comments: PATIENT WAS FASTINGPERFORMED BY: [facility]6370 [facility] [id number] LDL/HDL Ratio 1.2 {ratio_units} (Normal) Range: 0.0-3.2 [...] Cholesterol, Total 160 mg/dL (Normal) Range: 100-199 3-Aeu-802890:13 CBC W/AUTO DIFF WBC Comments: PATIENT WAS FASTINGPERFORMED BY: [facility]6370 [facility] [id number] Information: [id number] (59902) Immature Grans (Abs) 0.0 {x10E3/uL} (Normal) Range: [...] 3.77-5.28 WBC 4.5 {x10E3/uL} (Normal) Range: 3.4-10.8 7-Bbj-554523:13 METABOLIC PANEL, COMPREHENSIVE Comments: PATIENT WAS FASTINGPERFORMED BY: LabCoInspira Medical Center WoodburyJadcne8249 [facility] [id number] (84671) ALT (SGPT) 8 [iU]/L (Normal) Range: 0-32 [...] Glucose, Serum 109 mg/dL (Abnormal) Range: 65-99 4-God-204359:15 Basic Metabolic Profile (BMP) Comments: [facility] [address] [place], [place], [address] GAP 7 (Normal) Range: 5-15 CO2 30.0 [...] 200 mg/dLsuggests DIABETES MELLITUS per A.D.A. criteria. 9-Pgu-318845:15 CBC W/Diff, Automated Comments: [facility] [address] [place], [place], [address] Absolute Lymph 0.95 {X10_3/ul} (Normal) Range: 0.83-4.51 [...] K/mm3 (Normal) Range: 4.4-11.0 :31 LIPID PANEL (56743) Comments: PATIENT WAS FASTINGPERFORMED BY: LabCoInspira Medical Center WoodburyZktrxd1325 [facility] [id number]; non-emergent till apt LDL/HDL Ratio 1.6 {ratio_units} [...] Cholesterol, Total 219 mg/dL (Abnormal) Range: 100-199 98-Rrm-338448:31 CBC with auto diff Comments: PATIENT WAS FASTINGPERFORMED BY: LabCoInspira Medical Center WoodburyScymyc8851 [facility] [id number] Information: [id number] (58532) Immature Grans (Abs) 0.0 {x10E3/uL} (Normal) Range: [...] CREATININE RATIO Comments: PATIENT WAS FASTINGPERFORMED BY: LabCoInspira Medical Center WoodburyUmfjqr3065 [facility] [id number] (69500) AND (48421) Microalb/Creat Ratio 93.7 {mg/g_creat} (Abnormal) Range: 0.0-30.0 Microalbumin, Urine 196.4 ug/mL (Abnormal) Range: 0.0-17.0 Creatinine, Urine 209.7 mg/dL (Normal) Range: 15.0-278.0 :31 METABOLIC PANEL, COMPREHENSIVE Comments: PATIENT WAS FASTINGPERFORMED BY: TAPP6370 [facility] [id number] (62514) ALT (SGPT) 20 [iU]/L (Normal) Range: 0-32 [...] Glucose, Serum 120 mg/dL (Abnormal) Range: 65-99 08-Meh-240469:31 Hemoglobin Glyclated (HGB A1C) Comments: PATIENT WAS FASTINGPERFORMED BY: [employer]70 [facility] [id number] (48887) Hemoglobin A1c 7.6 % (Abnormal) Range: 4.8-5.6 Comments: . Pre-diabetes: 5.7 - 6.4 Diabetes: >6.4 Glycemic control for adults with diabetes: <7.0 49-Qsu-673512:30 Urinalysis, Complete Comments: Order Date: 07/18/15How was Urine Obtained? CLEAN [facility] [address] [place], [place], [address] MUCUS, URINE 0 SEEN {/hpf} (Normal) BACTERIA [...] (Abnormal) CLARITY Clear (Normal) COLOR Yellow (Normal) 57-Cop-273176:43 CBC W/Diff, Automated Comments: [facility] [address] [place], [place], [address] PATH REV May foll (Normal) SMEAR COMMENT [...] 4.2-5.4 WBC 15.1 K/mm3 (Abnormal) Range: 4.4-11.0 52-Ivc-753533:43 Comprehensive Metabolic Profil Comments: [facility] [address]spqora[address], [place], [address] GAP 8 (Normal) Range: 5-15 CO2 33.0 [...] Comments: To be drawn 6H after initial specimenWCorey Hospital [address]wj[address] [place], [place], [address] LACTIC ACID 1.7 mmol/L (Normal) Range: 0.4-2.0 :43 Magnesium Comments: [facility] [address] [place], [place], [address](655) MG 1.3 mg/dL (Abnormal) Range: 1.8-2.4 :43 Partial Thromboplast Time Comments: [facility] [address] [place], [place], [phone] PTT 31.4 s (Normal) Range: 24.1-36.2 :43 Phosphorus Comments: [facility] [address] [place], [address] PHOS 1.0 mg/dL (Abnormal) Range: 2.5-4.9 Comments: Critical Result(s) Called at: 17:06:16 07/18/2015 by:Stacey ibarra rn 69-Jbr-065358:43 Prothrombin Time w/INR Comments: [facility] [address] [place], [place], [address](125) INR 0.9 (Normal) PROTIME 12.8 s (Normal) [...] with abnormal findings in adult : Reviewed Pulp Maker Letter Indication: Encounter for annual general medical [...] - Strool Based DNA Test, CRC SCREEN (33026)Indication: Encounter for screening for malignant neoplasm of colon (Renamed from Special screening for malignant neoplasms, colon) On: 14-Iqc-252298:05 Request FECAL OCCULT- Tubes sent home (43466)Indication: Encounter for screening for malignant neoplasm of colon (Renamed from Special screening for malignant neoplasms, colon) On: 76-Yyw-053725:09 Request Lipid Panel (71573)Indication: Diabetes mellitus type 2, insulin dependent On: 81-Jrt-747425:08 Request Comments: around January Metabolic Panel, Comprehensive (30239)Indication: Diabetes mellitus type 2, insulin dependent On: 84-Fpu-810932:08 Request Comments: around January CBC, Platelets & Auto Diff (43246)Indication: Diabetes mellitus type 2, insulin dependent On: 89-Yal-203657:08 Request Comments: around January TSH (47634)Indication: Diabetes mellitus type 2, insulin dependent On: 02-Ijm-878854:08 Request Comments: around January Rapid Flu (65610 x 2)Indication: Unspecified Diagnosis On: 71-Srr-80736:33 Request CBC & PLATELETS (AUTO) (17807)Indication: Abdominal pain On: 3-Xxj-431208:57 Request CULTURE, NOSE (19486)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 On: :31 Request Comments: check for MRSA MRSA Culture (11769)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 On: :23 Request Comments: rt axila HgA1C , Office (31480)Indication: Diabetes mellitus type 2, insulin dependent On: 88-Vvm-490113:21 Request Urinalysis, Office (97300)Indication: History of MRSA infection On: 48-Cnp-426647:42 Request Hemoglobin Glyclated (HGB A1C) (31879)Indication: Diabetes mellitus type 2, uncontrolled On: 55-Fee-711054:46 Request MICROALBUMIN: CREATININE RATIO (91767) AND (80393)Indication: Hypertensive heart disease without heart failure On: 10-Vsi-347082:46 Request Planned Encounters Medical; Overnight Pulse Ox Placement - On: 08-Jul-2018 13:00 Comprehensive Internal Medicine Visit, Nurse Medical; 3 Month FU - On: 28-Jul-2018 13:30 Comprehensive Internal Medicine Elsa Chopra CNP, CNP, Mary E Planned Procedures Overnight Pulse OX (40909)By: On: 30-Jun-2018 Intent Lee Ann Schafer DO SPIROMETRY PERFORMED (47547)By: On: 25-Jun-2018 Intent Visit, Nurse SPIROMETRY PERFORMED (25654)By: On: 25-Jun-2018 Intent Visit, Nurse SIX MINUTE WALK TEST (30162)By: On: 25-Jun-2018 Intent Visit, Nurse Flu Vaccine (Quadrivalent) [id number]: On: 20-May-2018 Intent Karly Chandra DEXA SCAN AXIAL SKELETON (90605)By: On: 18-Dec-2017 Intent Elsa Chopra CNP, CNP, Mary E SCREENING DIGITAL TOMOSYNTHESIS OF On: 18-Dec-2017 Intent BREAST (68049)By: Nav MCKINLEY OneliaMarly Chopra CNP [place] Flu Vaccine (Quadrivalent) 63920Ho: On: 11-Jun-2017 Intent Nav MCKINLEYElsa Nav MCKINLEY [place] Comments: InfluenzaLot #[id number]-L dltd, IMDose prefilled syringeVIS and ABN signedgiven by:GENARO blackwood PHYSICAL THERAPY TREATMENT On: 11-Dec-2016 Intent (28583)By: Adelita Doshi LPN PHYSICAL THERAPY EVALUATION On: 11-Dec-2016 Intent (76878)By: Elsa Chopra CNP, CNP [place] Toradol Injection, 30 mg On: 10-Dec-2016 Intent ([id number])By: Elsa Chopra CNP, CNP [place] Radiology - Hip - RightBy: Nav On: 10-Dec-2016 Intent ARLENElsa Nav MCKINLEY [place] Aerosol Treatment (11175)By: Tico On: 16-Oct-2016 Intent Adelita LAM Flu Vaccine (Quadrivalent) 15442Bz: On: 11-Jul-2016 Intent Nav MCKINLEY OneliaMarly Chopra CNP [place] Comments: FLUlot: [id number]:01/16site:Lt deltoidroute:IMdose:.5mlDEMICK, [place] Ultrasound - Abdomen CompleteBy: On: 03-Jul-2016 Intent Nav MCKINLEY OneliaMarly Chopra CNP [place] Radiology - KUBBy: Elsa Chopra CNP On: 03-Jul-2016 Intent Elsa العلي CNP DRAIN/INJECT SMALL JOINT OR BURSA On: 18-May-2016 Intent ()By: Elsa Chopra CNP Comments: to left wrist joint 1/2 cc kenalog, 1/2 cc marcaine. Kenalog lot #[id number] exp Marcain lot [id number] ex Elsa MCKINLEY MAMMOGRAM, SCREENING, BOTH BREAST On: 11-May-2016 Intent (85565)By: Elsa Chopra CNP, CNP, Mary E Radiology - Chest- PA and LatBy: On: 23-Aug-2015 Intent Gautam DO, Madeline A Comments: 4 weeks Radiology - Chest- PA and LatBy: On: 25-Jul-2015 Intent Madeline Florez DO Comments: 3 weeks Planned Medications INJECTION, KETOROLAC TROMETHAMINE, PER 15 MG Ordered: 10-Dec-2016 Pending Elsa Chopra CNP, CNP, Elsa Garduno Name Dates Details BMI 31.0-31.9,adult : How [...] mellitus without complication) : DISCONTINUED - URINALYSIS (49329) Indication: Diabetes mellitus type II, controlled, with no complications (Renamed from Controlled type 2 diabetes mellitus without complication) CKD (chronic kidney disease), stage III : DISCONTINUED - MICROALBUMIN: CREATININE RATIO (41035) AND (30429) Indication: CKD (chronic kidney disease), stage III Diabetes mellitus type II, controlled, with no complications (Renamed from Controlled type 2 diabetes mellitus without complication) : DISCONTINUED - CBC, PLATELETS & AUT DIFF (52452) Indication: Diabetes mellitus type II, controlled, with no complications (Renamed from Controlled type 2 diabetes mellitus without complication) Diabetes mellitus type II, controlled, with no complications (Renamed from Controlled type 2 diabetes mellitus without complication) : DISCONTINUED - METABOLIC PANEL, COMPREHENSIVE (61951) Indication: Diabetes mellitus type II, controlled, with no complications (Renamed from Controlled type 2 diabetes mellitus without complication) Diabetes mellitus type II, controlled, with no complications (Renamed from Controlled type 2 diabetes mellitus without complication) : DISCONTINUED - TSH (04754) Indication: Diabetes mellitus type II, controlled, with [...] dependent : DISCONTINUED - METABOLIC PANEL, BASIC (10096) Indication: Diabetes mellitus type 2, insulin dependent [...] patient does not have durable power of sports attorney or living will. The patient has noticed getting bored, poor spirits most of time and lack of energy. Other providers contributing to the lyndsey bolton's care are pot filler () and urologist (). Note for Annual [...] and is sleeping poorly. Patient has been FetchBack End: 18-Dec-2017 14:15 pliant with instructions. Current [...] and is sleeping poorly. Patient has been FetchBack End: 18-Sep-2017 13:50 pliant with instructions. Current [...] - Reason for ER visit: note: (surgery [facility]. ). The patient feels well with [...] MRSA. She has had pre-op testing at [facility] on 10-14-2015, for Lumbar microdecompression for 10-24-[address] Dahl for papers to be signed [...] surgeon- - recently went to er at [facility] on jul 14 - she was having lower abd groin pain - and is feeling better - doesnt remeber why fell- doesnt rember di ericay - fell on steps and fell backwards- [...]
--- OUTSIDE RECORDS SUMMARY | 2018-09-25 14:28 | XMS RPT_ITS | Continuity of Care Document ---
:1950 Author Organization [facility] Address [address] [facility] [address] [place] [address] Phone Care Team Providers Name Role Phone Nav ARLENElsa E Unavailable Malcolm STANLEY, Casey Florian Unavailable Linden DO , Dr. Aaron Diaz Unavailable John BatistaAnnalisa Unavailable Dr. Abimael Ag Unavailable Kirby STANLEY, Jared Galeano Unavailable Pascale Boston Unavailable Slarb DOMESTIC VIOLENCE ADVOCATE, Adelita Unavailable Unavailable Long DOMESTIC VIOLENCE ADVOCATE, Dora L Unavailable Unavailable Karly Chandra Unavailable [...] 585.3) Comments: follows with Dr. Munguia in [place], seen for sarcoidosis currently, stableGFR 42 Status: [...] on wean of steroid Scale 201-250. 5 wadgb376-621 8 iuqni099-573 10 -192 12 units>401 15 unitsad ding metformin not [...] given in L arm subcutaneously paitent tolerated wellLOT#[id number]#2020 NOV 06 Status: Active Postmenopausal (Renamed from Postmenopausal status) (Z78.0, V49.81) Status: Active Pregnancies () Comments: 1. 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) Comments: Sees Ciara at [facility] for sarcoid in bone marrow just [...] MOY Start : 18-Jul-2015 Active VITAMIN D3, 88489HVTC (Oral Capsule) 1 (one) Capsule Capsule once [...] q12hrs (100 MG) End : 05-Aug-2015 Discontinued Comments:[facility] MUPIROCIN, 2% (External Ointment) 1 (one) [...] : 05-Aug-2015 Discontinued Comments:1,250mg IV q24hrs x 50vysj2,500mg IV q24hrs #14 Allergies and Adverse Reactions [...] Comments: was seeing Dr. Munguia's partner in [place] Dr. Morel, gfr 43%, has proteinuria Status: [...] Visit Report Result: Comments: See Note; NOTES: [facility] [address] [place] [address] OFFICE VISIT Date of Service: 02/17/18 MR#: [id number] Acct: [id number] Name: SHREYAS KATHLEEN Rep #: [id number] : 1950 Provider: Casey Fowler MD Age/Sex: 67/F Location: [facility] Status: Signed HPI HPI Details: SHREYAS KATHLEEN, is a 67 F who presents to the office today for for outpatien t cardiovascular follow-up of her history of underlying CAD, non-ST segment elevation CO, paroxysmal atrial fibrillation, superimposed upon a history [...] PFSH Medical History Atherosclerotic heart disease of [place] coronary artery without angina pectoris (Chronic) History [...] stenosis Assessment AND Plan 1. Atherosclerosis of [place] coronary artery of [place] heart without angina pectoris I25.10 Mild Plan [...] be scheduled for an outpatient visit in [facility] 9 months unless needed sooner. Thank you for allowing me to participate in the care of your patient. Please don't hesitate to call if any issues arise. This note was generated using a voice Eneedo system and there may be incorrect words, spelling or punctuation that were not noted when reviewing the office note prior to saving. Follow Up 9 Months Coding Level of Care Code Off glen rodríguez,kelly l 4 Diagnoses Atherosclerosis of [place] coronary artery of [place] heart without angina pectoris I25.10 [place] vs. transplanted heart: [place] heart Paroxysmal atrial fibrillation I48.0 Hyperlipidemia, u nspecified hyperlipidemia type E78.5 Hyperlipidemia type: unspecified Essential hypertension I10 Hypertension type: essential hypertension Long-term use of high-risk medication Z79.899 Coding Level of Care Code Off glen rodríguez,level 4 Diagnoses Atherosclerosis of [place] coronary artery of [place] heart without angina pectoris I25.10 [place] vs. transplanted heart: [place] heart Paroxysmal atrial fibrillat ion I48.0 Hyperlipidemia, unspecified hyperlipidemia type E78.5 Hyperlipidemia type: unspecified Essential hypertension I10 Hypertension type: essential hypertension Long-term use of high-risk medicatio n Z79.899 02/17/18 1530 <Electronically signed by Casey Fowler MD> Date Casey Fowler MD Cosigner Signature: Date _ (if applicable) CC: Elsa Chopra NP 14-Feb-2018 SCREENING MAMM (CAD), BILAT Result: Comments: See Note; NOTES: [facility] Imaging Services [address] [place] [address] SCREENING MAMM (CAD), BILAT MR#: [id number] Acct: [id number] Name: SHREYAS KATHLEEN Rep #: [id number] : 1950 F 67 From: Elias Finn MD PCP: Elsa Chopra NP Status: REG CLI Study: SCREENING MAMM (CAD), BILAT Date of Exam: 02/14/18 Exam# [id number] Ordering Dr: Elsa Chopra MAMMO GRAPHY - [...] these results will be sent to the [facility] by the facility within 30 days. Approximately 10% of breast cancers are not detected by mammography. A normal mammogram should not delay biopsy of a clinically suspicious abnormality. [id number] Elect ronically Signed: Elias Finn MD at 8:30 EDT Tel [phone], Service support , CC: Elsa Chopra NP Business Law Professor: Signed 21-Jan-2018 Dexa Bone Density Study Result: Comments: See Note; NOTES: [facility] Imaging Services [address] [place] [address] Dexa Bone Density Study MR#: [id number] Acct: [id number] Name: SHREYAS KATHLEEN Rep #: [id number] : 1950 F 67 From: Elias Finn MD PCP: Elsa Chopra NP Status: REG CLI Study: Dexa Bone Density Study Date of Exam: 01/21/18 Exam# [id number] Ordering Dr: Elsa Chopra STUDY: DUAL E [...] Elias Finn MD at 15:36 EDT Tel [phone], Service support , CC: Elsa Chopra NP Business Law Professor: Signed 10-Dec-2016 Hip 2-3 Views with Pelvis Result: Comments: See Note; NOTES: [facility] Imaging Services [address] [place] [address] Verdana 4d Hip 2-3 Views with Pelvis MR#: [id number] Acct: [id number] Name: SHREYAS KATHLEEN Keira Rep #: [id number] : 1950 F 66 From: Herve Jimenez MD PCP: Elsa Chopra Status: REG CLI Study: Hip 2-3 Views with Pelvis Date of Exam: 12/10/16 Exam# [id number] Ordering Dr: Elsa Chopra STUDY : X-RAY [...] FACR at 11:31 EDT , Service support [phone], CC: Elsa Chopra Business Law Professor: Signed 05-Jul-2016 Abdomen Complete Result: Comments: See Note; NOTES: [facility] Imaging Services [address] [place] [address] Verdana 4d Abdomen Complete MR#: [id number] Acct: [id number] Name: SHREYAS KATHLEEN Keira Rep #: [id number] : 1950 F 66 From: Elias Finn MD PCP: Elsa Chopra Status: REG CLI Study: Abdomen Complete Date of Exam: 07/05/16 Exam# [id number] Ordering Dr: Elsa Chopra STUDY: ABDOMINAL ULTRASOUND [...] Elias Finn MD at 9:35 EDT Tel [phone], Service support [phone], CC: Elsa Chopra Business Law Professor: Signed 05-Jul-2016 Abdomen Single View Result: Comments: See Note; NOTES: [facility] Imaging Services [address] [place] [address] Verdana 4d Abdomen Single View MR#: [id number] Acct: [id number] Name: SHREYAS KATHLEEN Rep #: [id number] : 1950 F 66 From: Elias Finn MD PCP: Elsa Chopra Status: REG CLI Study: Abdomen Single View Date of Exam: 07/05/16 Exam# [id number] Ordering Dr: Elsa Chopra STUDY: X-RA Y [...] of the L1 vertebrae. ORDER # : [id number] RAD/Abdomen Single View IMPRESSION: Moderate amount of fecal material is seen in the colon. Electronically Signed: Elias Finn MD at 10:34 EDT Tel [phone], Service sup port [phone], CC: Elsa Chopra Business Law Professor: Signed 18-May-2016 Bilat Scrn Digital AND CAD Result: Comments: See Note; NOTES: [facility] Imaging Services [address] [place] [address] Verdana 4d Bilat Scrn Digital AND CAD MR#: [id number] Acct: [id number] Name: JACINTO KATHLEEN Rep #: [id number] : 1950 F 65 From: Elias Finn MD PCP: Elsa Chopra Status: REG CLI Study: Bilat Scrn Digital AND CAD Date of Exam: 05/18/16 Exam# [id number] Ordering Dr: Elsa Chopra MAMMOGRAPHY - BILATERAL [...] biopsy of a clinically suspicious abnor mality. [id number] Electronically Signed: Elias Finn MD at 12:53 EDT Tel [phone], Service support [phone], CC: Elsa Chopra Business Law Professor: Signed 14-Feb-2016 Shoulder min 2 Views Result: Comments: See Note; NOTES: [facility] Services [address] [place] [address] Oscar 4d Shoulder min 2 Views MR#: [id number] Acct: [id number] Name: SHREYAS KATHLEEN Rep #: [id number] : 1950 F 65 From: Herve Jimenez MD PCP: Madeline Florez DO Status: REG CLI Study: Shoulder min 2 Views Date of Exam: 02/14/16 Exam# [id number] Ordering Dr: Pascale Boston DO STUDY: X-RAY [...] FACR at 14:50 EDT , Service support [phone], Fax RAD/Shoulder min 2 Views IMPRESSION: Bilateral of the acromioclavicular joint, otherwise normal x-ray examination of the shoulder. Electronically Signed: Herve Jimenez MD, FACR at 14:50 EDT , Service support [phone], CC: Pascale Boston DO; Madeline Florez DO Business Law Professor: Signed 21-Oct-2015 Spirometry (89129) Comments: mod restriction Result: 19-Sep-2015 Chest PA and Lateral Result: Comments: See Note; NOTES: [facility] Services [address] [facility] [place] [address] Verdana 4d Chest PA and Lateral MR#: [id number] Acct: [id number] Name: SHREYAS KATHLEEN Rep #: [id number] : 1950 F 65 From: Elias Finn MD PCP: Madeline Florez DO Status: REG CLI Study: Chest PA and Lateral Date of Exam: 09/19/15 Exam# [id number] Ordering Dr: Madeline Florez DO STUDY: X-RAY [...] Elias Finn MD at 13:58 EST Tel [phone], Service support [phone], RAD/Chest PA and Lateral IMPRESSION: Stable examination. No acute abnormality is seen. Electronically Doris d: Elias Finn MD at 13:58 EST Tel [phone], Service support [phone], CC: Madeline Florez DO Business Law Professor: Signed 25-Aug-2015 Spine Lumbar (Routine) Result: Comments: See Note; NOTES: [facility] Imaging Services [address] [place] [address] Verdana 4d Spine Lumbar (Routine) MR#: [id number] Acct: [id number] Name: SHREYAS MAJOR Rep #: [id number] : 1950 F 65 From: Herve Jimenez MD PCP: Madeline Florez DO Status: REG CLI Study: Spine Lumbar (Routine) Date of Exam: 08/25/15 Exam# [id number] Ordering Dr: ELIZABETH DE LEON M.D. STUDY: [...] FACR at 17:43 EST , Service support [phone], CC: ELIZABETH DE LEON M.D.; Madeline Florez DO Business Law Professor: Signed 25-Aug-2015 Spine Thoracic (Routine) Result: Comments: See Note; NOTES: [facility] Imaging Services [address] [place] [address] 4d Spine Thoracic (Routine) MR#: [id number] Acct: [id number] Name: SHREYAS SHARFI Keira Rep #: [id number] : 1950 F 65 From: Herve Jimenez MD PCP: Madeline Florez DO Status: REG CLI Study: Spine Thoracic (Routine) Date of Exam: 08/25/15 Exam# [id number] Ordering Dr: ELIZABETH RUIZ M.D. STUDY: MRI [...] FACR at 17:45 EST , Service support [phone], CC: ELIZABETH DE LEON M.D.; Komal Florez DO Business Law Professor: Signed 17-Aug-2015 Chest PA and Lateral Result: Comments: See Note; NOTES: [facility] Imaging Services [address] [place] [address] Verdana 4d Chest PA and Lateral MR#: [id number] Acct: [id number] Name: SHREYAS KATHLEEN Rep #: [id number] : 1950 F 65 From: Elias Finn MD PCP: Madeline Florez DO Status: REG CLI Study: Chest PA and Lateral Date of Exam: 08/17/15 Exam# [id number] Ordering Dr: Madeline Florez DO STUDY: X-RAY [...] Elias Finn MD at 11:09 EST Tel [phone], Service support [phone], Fax RAD/Chest PA and Lateral IMPRESSION: Residual changes persist in the right middle lobe and there has been some improvement. Further followup is recommended. Electr onically Signed: Elias Finn MD at 11:09 EST Tel [phone], Service support [phone], CC: Madeline Florez DO Business Law Professor: Signed 12-Aug-2015 Discharge Instruction Result: Comments: See Note; NOTES: [facility] Medical Records Department [address] [place] [address] Discharge Instruction 08/10/15 1702 MR#: [id number] Acct: [id number] Name: SHREYAS KATHLEEN Rep #: [id number] : 1950 65 From: Denny Bone MD PCP: Madeline lForez DO Status: DEP ER ED Disposition - Plan for ED Patient: Chief Complaint: Abn Labs Instructi ons: ED Bacteremia, Rule Out (Adult) Referrals: Katelyn Arenas MD [STAFF PHYSICIAN] - 2 Days What to do if you have Problems For any increased pain, shortness of breath, bleeding, nausea or vomit ing, chest pain, or any unexpected problems, contact your doctor. Call [facility] ([phone]) or report to the closest Emergency Room. Call 911 if necessary. 08/12/15 1502 <Elect ronically signed by Denny Bone MD> Date Denny Bone MD Cosigner Signature (If Indicated): Date CC: Madeline Flroez DO 12-Aug-2015 Emergency Department Summary Result: Comments: See Note; NOTES: [facility] Medical Records Department [address] [place] [address] Emergency Department Summary MR#: [id number] Acct: [id number] Name: SHREYAS KATHLEEN Rep #: [id number] : 1950 65 From: Denny Bone MD [...] the patient had blood cultures obtained at [facility] and they were called to [...] Nacho Ramirez C: Madeline Bonilla MD T: [facility] JOB: [id number] 08/12/15 1502 <Electronically signed by Denny Bone MD> Date Denny Bone MD Cosigner Signature (If Indicated): Date ___ CC: Madeline Florez DO; Katelyn Arenas MD Date Dictated: 08/10/151708 Date Transcribed: 08/10/151708 Business Law Professor: Signed Social History Name Dates Details No [...] kg/m2 Body Surface Area Calculated 1.85 m2 76-Xbn-952042:20 Temperature 97.8 f Comments: Method: Temporal Pulse [...] kg/m2 Body Surface Area Calculated 1.97 m2 53-Wsf-013193:34 BP Systolic 130 mm[Hg] Comments: Patient Position: Sitting BP Diastolic 80 mm[Hg] Comments: Patient Position: Sitting 04-Bpb-839275:03 Temperature 98 f Comments: Method: Temporal Pulse [...] Comments: Jun 19; PATIENT WAS FASTINGPERFORMED BY: Cequel DataCentraState Healthcare SystemAjpraj9444 [facility] [id number] (40013) AND (70776) Alb/Creat Ratio 266.9 {mg/g_creat} (Abnormal) Range: 0.0-30.0 Albumin, Urine 168.7 ug/mL (Normal) Creatinine, Urine 63.2 mg/dL (Normal) :00 Metabolic Panel, Comprehensive Comments: Jun 19; PATIENT WAS FASTINGPERFORMED BY: [facility]el DataCentraState Healthcare SystemRpgpfo9928 [facility] [id number] (03648) ALT (SGPT) 14 [iU]/L (Normal) Range: 0-32 [...] 8-27 Glucose 121 mg/dL (Abnormal) Range: 65-99 34-Ctc-49053:00 HGB A1C (71560) Comments: June 19; PATIENT WAS FASTINGPERFORMED BY: [facility] [id number] Hemoglobin A1c 7.0 % (Abnormal) Range: 4.8-5.6 Comments: . Prediabetes: 5.7 - 6.4 Diabetes: >6.4 Glycemic control for adults with diabetes: <7.0 32-Tfx-276924:33 ALKALINE PHOSPHATASE-ISOENZYM Comments: PATIENT NOT FASTINGPERFORMED BY: [facility] [id number] (52193) Intestinal Frac.: 0 % (Normal) Range: 0-18 Bone Fraction: 27 % (Normal) Range: 14-68 Liver Fraction: 73 % (Normal) Range: 18-85 Alkaline Phosphatase 89 [iU]/L (Normal) Range: 39-117 04-Ttv-983955:33 CBC, Platelets & Auto Diff Comments: PATIENT NOT FASTINGPERFORMED BY: [facility] [id number] (32682) Immature Grans (Abs) 0.0 {x10E3/uL} (Normal) Range: [...] 3.77-5.28 WBC 5.9 {x10E3/uL} (Normal) Range: 3.4-10.8 93-Xiy-295242:22 HgA1C , Office (59823) Comments: 7.3 HgA1C , Office 7.3 % (Abnormal) Range: 4.6 - 7.1 47-Ntz-031733:22 Blood Glucose , Office (41537) Blood Glucose , Office 173 (Normal) 53-Xfo-77302:40 Basic Metabolic Profile (BMP) Comments: SEND RESULTS OF BMP TO .[facility] [address] [place], [address] GAP 11 (Normal) Range: 5-15 CO2 27.0 [...] A.D.A. criteria.Please note revised GLUCOSE reference range /02/2018. 84-Yjp-21673:40 Liver Profile Comments: SEND RESULTS OF BMP TO .[facility] [address] [place], [address] D BILI 0.09 mg/dL (Normal) Range: 0.00-0.30 T BILI 0.40 mg/dL (Normal) Range: 0.20-1.00 ALT 22 U/L (Normal) Range: 13-56 ALK P 103 U/L (Normal) Range: 45-117 AST 17 U/L (Normal) Range: 15-37 GLOB 4.0 g/dL (Normal) Range: 2.2-4.2 ALB 3.8 g/dL (Normal) Range: 3.2-5.0 T PROT 7.8 g/dL (Normal) Range: 6.4-8.2 97-Gme-232363:41 CALCIFEDIOL (57488) Comments: PATIENT WAS FASTINGPERFORMED BY: LabCoCentraState Healthcare SystemWnyvdz7387 [facility] [id number] Vitamin D, 25-Hydroxy 44.2 ng/mL (Normal) Range: 30.0-100.0 Comments: Vitamin D deficiency has been defined by the Ensign ofMedicine and an Endocrine Society practice guideline as alevel of serum 25-OH vitamin D less than 20 ng/mL (1,2).The Endocrine Society went on to further define vitamin Dinsufficiency as a level between 21 and 29 ng/mL (2).1. IOM (Ensign of Medicine). 2010. Dietary reference intakes for calcium and D. [place]: The National Academies Press.2. Jacinto MF, Eddy NOGUEIRA, Quintin JAVED, et al. Evaluation, treatment, and prevention of vitamin D deficiency: an Endocrine Society clinical practice guideline. JCEM. 2010; 96(7):1911-30. 77-Shf-512245:41 METABOLIC PANEL, Comments: PATIENT WAS FASTINGPERFORMED BY: LabCoCentraState Healthcare SystemEaasva4901 [facility] [id number] Information: 164984,R28545; OV 03/19 COMPREHENSIVE (20970) ALT (SGPT) 15 [iU]/L (Normal) Range: 0-32 [...] 8-27 Glucose 143 mg/dL (Abnormal) Range: 65-99 08-Lts-908046:31 Blood Glucose , Office (02502) Blood Glucose , Office 211 (Normal) 24-Exq-462910:31 HgA1C , Office (66512) HgA1C , Office 6.8 % (Normal) Range: 4.6 - 7.1 17-Wot-683522:33 CBC, Platelets & Auto Diff Comments: PATIENT WAS FASTINGPERFORMED BY: LabCoCentraState Healthcare SystemCwgzjx7218 [facility] [id number] (24081) Immature Grans (Abs) 0.0 {x10E3/uL} (Normal) Range: [...] 3.77-5.28 WBC 7.7 {x10E3/uL} (Normal) Range: 3.4-10.8 79-Rcl-845785:33 Lipid Panel (13308) Comments: PATIENT WAS FASTINGPERFORMED BY: Etherios Nhbunl6386 [facility] [id number] LDL/HDL Ratio 0.9 {ratio} (Normal) Range: 0.0-3.2 [...] Panel, Comprehensive Comments: PATIENT WAS FASTINGPERFORMED BY: EIS Analyticslin6370 [facility] [id number] (49551) ALT (SGPT) 18 [iU]/L (Normal) Range: 0-32 [...] CREATININE RATIO Comments: PATIENT WAS FASTINGPERFORMED BY: [facility] [id number] (44394) AND (88312) Alb/Creat Ratio 225.5 {mg/g_creat} (Abnormal) Range: 0.0-30.0 Albumin, Urine 112.5 ug/mL (Normal) Creatinine, Urine 49.9 mg/dL (Normal) :33 URINALYSIS (56040) Comments: PATIENT WAS FASTINGPERFORMED BY: [facility] [id number] Microscopic Examination See below: (Normal) Comments: Microscopic was indicated and was performed. Nitrite, Urine Negative (Normal) Urobilinogen,Semi-Qn 0.2 mg/dL (Normal) Range: 0.2-1.0 Bilirubin Negative (Normal) Occult Blood Negative (Normal) Ketones Negative (Normal) Glucose Negative (Normal) Protein Trace (Normal) WBC Esterase 2+ (Abnormal) Appearance Clear (Normal) Urine-Color Yellow (Normal) pH 6.5 (Normal) Range: 5.0-7.5 Specific Hathaway 1.014 (Normal) Range: 1.005-1.030 :33 TSH (04708) Comments: PATIENT WAS FASTINGPERFORMED BY: [facility] [id number] TSH 3.870 {uIU/mL} (Normal) Range: 0.450-4.500 32-Mgy-510867:33 Microscopic Examination Comments: PATIENT WAS FASTINGPERFORMED BY: [facility] [id number] Bacteria Few (Normal) Mucus Threads Present (Normal) Cast Type Hyaline casts (Normal) Casts Present {/lpf} (Abnormal) Epithelial Cells (non renal) >10 {/hpf} (Abnormal) Range: 0 - 10 RBC 0-2 {/hpf} (Normal) Range: 0 - 2 WBC 11-30 {/hpf} (Abnormal) Range: 0 - 5 :57 HgA1C , Office (84055) Comments: 6.6 HgA1C , Office 6.6 % (Normal) Range: 4.6 - 7.1 :57 Blood Glucose , Office (61028) Blood Glucose , Office 211 (Normal) :53 HEPATIC FUNCTION PANEL Comments: PATIENT NOT FASTINGPERFORMED BY: [facility] [id number] (53638) ALT (SGPT) 13 [iU]/L (Normal) Range: 0-32 AST (SGOT) 17 [iU]/L (Normal) Range: 0-40 Alkaline Phosphatase, S 89 [iU]/L (Normal) Range: 39-117 Bilirubin, Direct 0.08 mg/dL (Normal) Range: 0.00-0.40 Bilirubin, Total <0.2 mg/dL (Normal) Range: 0.0-1.2 Albumin, Serum 4.2 g/dL (Normal) Range: 3.6-4.8 Protein, Total, Serum 6.8 g/dL (Normal) Range: 6.0-8.5 :53 SBSUA-TXLEBEHCANJ-SZAWU (29720) Comments: PATIENT NOT FASTINGPERFORMED BY: [employer]70 [facility] [id number] AFP, Serum, Tumor Marker 2.6 ng/mL (Normal) Range: 0.0-8.3 Comments: Rosmery ECLIA methodology :53 ALKALINE PHOSPHATASE-ISOENZYM Comments: PATIENT NOT FASTINGPERFORMED BY: [facility] [id number] (69670) Intestinal Frac.: 5 % (Normal) Range: 0-18 Bone Fraction: 24 % (Normal) Range: 14-68 Liver Fraction: 71 % (Normal) Range: 18-85 48-Elk-418148:11 ALKALINE PHOSPHATASE-ISOENZYM Comments: PATIENT NOT FASTINGPERFORMED BY: NEY [facility] Yumnxv[address]ublin [place] [id number] (90646) Intestinal Frac.: 3 % (Normal) Range: 0-18 Bone Fraction: 19 % (Normal) Range: 14-68 Liver Fraction: 78 % (Normal) Range: 18-85 Alkaline Phosphatase, S 122 [iU]/L (Abnormal) Range: 39-117 30-Xen-362631:11 CALCIFEDIOL (03973) Comments: PATIENT NOT FASTINGPERFORMED BY: [facility] K[address]dtn[address] Road[address]ublin [place] [id number] Vitamin D, 25-Hydroxy 37.5 ng/mL (Normal) Range: 30.0-100.0 Comments: Vitamin D deficiency has been defined by the Ensign ofMedicine and an Endocrine Society practice guideline as alevel of serum 25-OH vitamin D less than 20 ng/mL (1,2).The Endocrine Society went on to further define vitamin Dinsufficiency as a level between 21 and 29 ng/mL (2).1. IOM (Ensign of Medicine). 2010. Dietary reference intakes for calcium and D. [place]: The National Academies Press.2. Jacinto MF, Eddy [place], Anay-Gonzalo JAVED, et al. Evaluation, treatment, and prevention of vitamin D deficiency: an Endocrine Society clinical practice guideline. JCEM. 2010; 96(7):1911-30. 84-Uef-247132:11 TSH (53398) Comments: PATIENT NOT FASTINGPERFORMED BY: [facility] Blxytn[address] Road[address]ublin [place] [id number] TSH 1.620 {uIU/mL} (Normal) Range: 0.450-4.500 67-Ige-372148:11 T4, FREE (THYROXINE) (62823) Comments: PATIENT NOT FASTINGPERFORMED BY: [facility] [address]qax26[address] Road[address]ublin [place] [id number] T4,Free(Direct) 1.00 ng/dL (Normal) Range: 0.82-1.77 98-Atd-648085:11 T3, FREE (TRIDOTHYRONINE) (58923) Comments: PATIENT NOT FASTINGPERFORMED BY: [facility] Btsncs8156 [facility] [id number] Triiodothyronine,Free,Serum 2.5 pg/mL (Normal) Range: 2.0-4.4 :08 HgA1C , Office (42341) HgA1C , Office 7.4 % (Abnormal) Range: 4.6 - 7.1 :08 Blood Glucose , Office (05749) Blood Glucose , Office 190 (Normal) :30 Lipid Profile Comments: Order Date: 12/12/16Order Info: 0788-1 - *Hepatic Function PanelOrder Info: 84844-9 - *Lipid Profile CC PCPComments: 12 hours fasting, may have water.Comments: 6 months / [facility] [address] [facility] [address] [place], [place], [address] VLDL 46 mg/dL (Abnormal) Range: 5-40 LDL [...] Info: 0788-1 - *Hepatic Function PanelOrder Info: 06178-5 - *Lipid Profile CC PCPComments: 12 hours fasting, may have water.Comments: 6 months / [facility] [address] [place], [place], [id number] D BILI 0.11 mg/dL (Normal) Range: 0.00-0.30 T BILI 0.40 mg/dL (Normal) Range: 0.20-1.00 ALT 19 U/L (Normal) Range: 12-78 ALK P 132 U/L (Abnormal) Range: 45-117 AST 15 U/L (Normal) Range: 15-37 GLOB 4.3 g/dL (Abnormal) Range: 2.3-3.5 ALB 3.5 g/dL (Normal) Range: 3.4-5.0 T PROT 7.8 g/dL (Normal) Range: 6.4-8.2 4-Iyz-554959:55 TSH (THYROID STIMULATING Comments: Week of Apr 09; PATIENT NOT FASTINGPERFORMED BY: [facility] [id number] HORMONE) (39608) TSH 0.728 {uIU/mL} (Normal) Range: 0.450-4.500 :55 HgA1C , Office (72205) HgA1C , Office 6.9 % (Normal) Range: 4.6 - 7.1 :55 Blood Glucose , Office (59226) Blood Glucose , Office 143 (Normal) 04-Npa-456520:11 Microscopic Examination Comments: PATIENT WAS FASTINGPERFORMED BY: [facility] [id number] Bacteria Few (Normal) Mucus Threads Present (Normal) Cast Type Hyaline casts (Normal) Casts Present {/lpf} (Abnormal) Epithelial Cells (non renal) 0-10 {/hpf} (Normal) Range: 0 - 10 RBC 0-2 {/hpf} (Normal) Range: 0 - 2 WBC 6-10 {/hpf} (Abnormal) Range: 0 - 5 44-Abw-008427:11 URINALYSIS, W/ MICRO (16354) Comments: January 2017; PATIENT WAS FASTINGPERFORMED BY: [facility] [id number] Microscopic Examination See below: (Normal) Comments: Microscopic was indicated and was performed. Nitrite, Urine Negative (Normal) Urobilinogen,Semi-Qn 0.2 mg/dL (Normal) Range: 0.2-1.0 Bilirubin Negative (Normal) Occult Blood Negative (Normal) Ketones Negative (Normal) Glucose Trace (Abnormal) Protein 1+ (Abnormal) WBC Esterase 1+ (Abnormal) Appearance Clear (Normal) Urine-Color Yellow (Normal) pH 6.5 (Normal) Range: 5.0-7.5 Specific Hathaway 1.016 (Normal) Range: 1.005-1.030 15-Gbl-809305:11 MICROALBUMIN: CREATININE RATIO Comments: January 2017; PATIENT WAS FASTINGPERFORMED BY: Cequel Data Akrpoq6155 [facility] RegionConsulting ServicesHarris Regional Hospital [id number] ([id number]) AND (64482) Microalb/Creat Ratio 208.2 {mg/g_creat} (Abnormal) Range: 0.0-30.0 Microalbumin, Urine 182.2 ug/mL (Normal) Creatinine, Urine 87.5 mg/dL (Normal) 31-Vcu-754496:11 CBC, Platelets & Auto Diff Comments: January 2017; PATIENT WAS FASTINGPERFORMED BY: QR Artist Qbzlba8692 [facility] Hospital [id number] ([id number]) Immature Grans (Abs) 0.0 {x10E3/uL} (Normal) Range: [...] 3.77-5.28 WBC 5.6 {x10E3/uL} (Normal) Range: 3.4-10.8 80-Mix-541165:11 Metabolic Panel, Comprehensive Comments: January 2017; PATIENT WAS FASTINGPERFORMED BY: LabCoCentraState Healthcare SystemQddvlq6563 [facility] [id number] ([id number]) ALT (SGPT) 13 [iU]/L (Normal) Range: 0-32 [...] Glucose, Serum 120 mg/dL (Abnormal) Range: 65-99 10-Ijm-911765:11 TSH (THYROID STIMULATING Comments: January 2017; PATIENT WAS FASTINGPERFORMED BY: [facility] Iwonwm2224 [facility] [id number] HORMONE) (12587) TSH 0.982 {uIU/mL} (Normal) Range: 0.450-4.500 4-Bff-902938:02 Lipid Profile Comments: Order Date: 12/04/16Order Info: [id number] - *Hepatic Function PanelOrder Date: 12/04/16Order Info: [id number] - *Lipid Profile CC PCPComments: 12 hours fasting, may have water.[place] [address] [place], [place], [address] VLDL 36 mg/dL (Normal) Range: 5-40 LDL [...] 200-240 mg/dL Borderline >240 mg/dL High Risk 9-Rpj-519793:02 Liver Profile Comments: Order Date: 12/04/16Order Info: [id number] - *Hepatic Function PanelOrder Date: 12/04/16Order Info: [id number] - *Lipid Profile CC PCPComments: 12 hours fasting, may have water.[place] [address] [place], [place], [address] D BILI 0.07 mg/dL (Normal) Range: 0.00-0.30 T BILI 0.30 mg/dL (Normal) Range: 0.20-1.00 ALT 21 U/L (Normal) Range: 12-78 ALK P 112 U/L (Normal) Range: 45-117 AST 19 U/L (Normal) Range: 15-37 GLOB 3.8 g/dL (Abnormal) Range: 2.3-3.5 ALB 3.4 g/dL (Normal) Range: 3.4-5.0 T PROT 7.2 g/dL (Normal) Range: 6.4-8.2 76-Mlj-459182:29 URINE RANDELL CULTURE-ZEINAB COL Comments: PATIENT NOT FASTINGPERFORMED BY: QR ArtistClovis Baptist HospitalZosjoo6978 [facility] [id number] Information: SRC:UC COUNT ([id number]) Result 1 MUG (Normal) Comments: Mixed urogenital flora25,000-50,000 colony forming units per mL Urine Final report (Normal) Culture,Comprehensive 16-Cgi-858273:53 Urinalysis, Office (80747) UA - LEUKOCYTE ESTERASE Small (Normal) UA - NITRITE Negative (Normal) URINE UROBILINGN ZEINAB TIMED Normal mg/dL (Normal) UA - PROTEIN Negative mg/dL (Normal) UA - PH 7 (Normal) UA - BLOOD Negative (Normal) UA - SPECIFIC GRAVITY 1.020 (Normal) UA - KETONES Negative mg/dL (Normal) UA - BILIRUBIN Small (Normal) UA - GLUCOSE Negative (Normal) 38-Rci-920471:51 Blood Glucose , Office (06320) Comments: 169 Blood Glucose , Office 169 (Normal) :52 HgA1C , Office (00755) Comments: 7.0 HgA1C , Office 7.0 % (Normal) Range: 4.6 - 7.1 :22 URINE RANDELL CULTURE-IDENTIFICATN Comments: PATIENT NOT FASTINGPERFORMED BY: LabVon [facility]6370 [facility] [id number] Information: SRC:UC (01277) Result 1 MUG (Normal) Comments: Mixed urogenital flora10,000-25,000 colony forming units per mL Urine Final report (Normal) Culture,Comprehensive 09-Zhv-634021:05 Urinalysis, Office (37694) UA - LEUKOCYTE ESTERASE Negative (Normal) UA - NITRITE Negative (Normal) URINE UROBILINGN ZEINAB TIMED Normal mg/dL (Normal) UA - PROTEIN 30 mg/dL (Normal) UA - PH 6 (Abnormal) UA - BLOOD non-hemolyzed trace (Normal) UA - SPECIFIC GRAVITY 1.020 (Normal) UA - KETONES Negative mg/dL (Normal) UA - BILIRUBIN Negative (Normal) UA - GLUCOSE 100 (Abnormal) :42 HgA1C , Office (68761) HgA1C , Office 6.2 % (Normal) Range: 4.6 - 7.1 :42 Blood Glucose , Office (42680) Blood Glucose , Office 137 (Normal) :01 TSH (THYROID STIMULATING Comments: PATIENT NOT FASTINGPERFORMED BY: QR Artist [employer] [facility] [id number] HORMONE) (13799) TSH 1.820 {uIU/mL} (Normal) Range: 0.450-4.500 :03 HEPATIC FUNCTION PANEL Comments: PATIENT NOT FASTINGPERFORMED BY: Cequel Data [employer] [facility] [id number] (36802) ALT (SGPT) 15 [iU]/L (Normal) Range: 0-32 AST (SGOT) 23 [iU]/L (Normal) Range: 0-40 Alkaline Phosphatase, S 95 [iU]/L (Normal) Range: 39-117 Bilirubin, Direct 0.12 mg/dL (Normal) Range: 0.00-0.40 Bilirubin, Total 0.3 mg/dL (Normal) Range: 0.0-1.2 Albumin, Serum 4.3 g/dL (Normal) Range: 3.6-4.8 Protein, Total, Serum 7.3 g/dL (Normal) Range: 6.0-8.5 :03 VULQK-JBJEKCBITQA-UWFLQ (62423) Comments: PATIENT NOT FASTINGPERFORMED BY: [employer] [facility] [id number] AFP, Serum, Tumor Marker 2.8 ng/mL (Normal) Range: 0.0-8.3 Comments: Rosmery ECLIA methodology :03 HEPATITIS PANEL (21978) Comments: PATIENT NOT FASTINGPERFORMED BY: QR Artist [employer] [facility] [id number] Hep C Virus Ab <0.1 {s/co_ratio} (Normal) Range: 0.0-0.9 Comments: Negative: < 0.8 Indeterminate: 0.8 - 0.9 Positive: > 0.9 . The CDC recommends that a positive HCV antibody result be followed up with a HCV Nucleic Acid Amplification test (130491). Hep B Core Ab, IgM Negative (Normal) HBsAg Screen Negative (Normal) Hep A Ab, IgM Negative (Normal) :58 CBC W/Diff, Automated Comments: CBCD FOR DR CHATMANBoston Sanatoriumisma [facility] [address] [place], [address] Absolute Lymph 1.84 {X10_3/ul} (Normal) Range: 0.83-4.51 [...] Comments: Order Date: 05/14/16Interface Comments: Reason:Order Date: 05/14/16[facility] [address] [place], [address] T4 THYROXIN 11.6 ug/dL (Normal) Range: 4.8-13.9 :58 Thyroid Stim Hormone (TSH) Comments: Order Date: 05/14/16Interface Comments: Reason:Order Date: 05/14/16[facility] [address] [place], [address] TSH 1.96 {uIU/mL} (Normal) Range: 0.358-3.74 :11 Urinalysis, Office (40099) UA - LEUKOCYTE ESTERASE Small (Normal) UA - NITRITE Negative (Normal) URINE UROBILINGN ZEINAB TIMED Normal mg/dL (Normal) UA - PROTEIN 30 mg/dL (Normal) UA - PH 6 (Abnormal) UA - BLOOD Negative (Normal) UA - SPECIFIC GRAVITY 1.010 (Normal) UA - KETONES Negative mg/dL (Normal) UA - BILIRUBIN Negative (Normal) UA - GLUCOSE Negative (Normal) :50 Basic Metabolic Profile (BMP) Comments: [facility] [address] [place], [address] GAP 7 (Normal) Range: 5-15 CO2 33.0 [...] 100 mg/dL (Normal) Range: 70-110 :48 MAGNESIUM (41439) Comments: PATIENT NOT FASTINGPERFORMED BY: LabCoCentraState Healthcare SystemTdavrd9813 [facility] [id number] Magnesium, Serum 1.6 mg/dL (Normal) Range: 1.6-2.3 :48 TSH (THYROID STIMULATING Comments: PATIENT NOT FASTINGPERFORMED BY: LabCo Hslvkw5555 [facility] [id number] HORMONE) (46471) TSH 6.340 {uIU/mL} (Abnormal) Range: 0.450-4.500 :48 URIC ACID BLOOD (72077) Comments: PATIENT NOT FASTINGPERFORMED BY: LabCoClovis Baptist HospitalPtwhcn7415 [facility] [id number] Uric Acid, Serum 6.1 mg/dL (Normal) Range: 2.5-7.1 Comments: Therapeutic target for gout patients: <6.0 :09 Blood Glucose , Office (71057) Blood Glucose , Office 116 (Normal) :09 HgA1C , Office (08006) HgA1C , Office 6.7 % (Normal) Range: 4.6 - 7.1 :19 Basic Metabolic Profile (BMP) Comments: Order Date: 03/12/16OV Order #: [id number] Reserve Hospital [address] [place], [address] GAP 7 (Normal) Range: 5-15 CO2 29.0 [...] 7-18 GLU 107 mg/dL (Normal) Range: 70-110 40-Cet-989180:19 T4 Total, Thyroxin Comments: Order Date: 03/12/16 Order #: [id number] County Hospital [address] [place], [place], [address] T4 THYROXIN 9.4 ug/dL (Normal) Range: 4.8-13.9 :19 Thyroid Stim Hormone (TSH) Comments: Order Date: 03/12/16 Order #: [id number] County Hospital [address]ow[address] [place], [place], [address] TSH 5.44 {uIU/mL} (Abnormal) Range: 0.358-3.74 :49 Aerobic Bacterial Culture Comments: PATIENT NOT FASTINGPERFORMED BY: [facility] Zyzvyx7007 [facility] [id number] Information: RT AXILLA Result 1 MRSA (Abnormal) [...] (Normal) Comments: PATIENT NOT FASTINGPERFORMED BY: [facility] Wnvffr5179 [place] [id number] Information: NASAL 5:49 Culture 91-Bic-574731:20 Basic Metabolic Profile (BMP) Comments: [facility] [address] [place], [place], [address] GAP 7 (Normal) Range: 5-15 CO2 29.0 [...] A.D.A. criteria. :02 Blood Glucose , Office (27227) Blood Glucose , Office 137 (Normal) :54 Urine Drug Screen (Office - WNL (Normal) Comments: pos for oxy, all else neg Urine Drug Screen 6 Panel) Comments: All negative except Oxy (63464) :52 HgA1C , Office (94646) Comments: 7.3 HgA1C , Office 7.3 % (Abnormal) Range: 4.6 - 7.1 1-Aey-256828:43 Basic Metabolic Profile (BMP) Comments: DR URBINA ORDERED BMPDR MALCOLM ORDERED LIVER LIPIDWWestern [facility] Hospital [address] [place], [address] GAP 3 (Abnormal) Range: 5-15 CO2 33.0 mmol/L (Abnormal) Range: 21.0-32.0 CL 102 mmol/L (Normal) Range: 98-107 K 3.4 mmol/L (Abnormal) Range: 3.5-5.1 Comments: ADDENDA: Denisse at [facility] aware of potassium level NA [...] 7-18 GLU 101 mg/dL (Normal) Range: 70-110 3-Pdp-610155:43 Lipid Profile Comments: DR URBINA ORDERED BMPDR MOODISPAW ORDERED LIVER LIPIDPaulding County Hospital [address] [place], [address] VLDL 26 mg/dL (Normal) Range: [...] 200-240 mg/dL Borderline >240 mg/dL High Risk 1-Ale-189709:43 Liver Profile Comments: DR URBINA ORDERED BMPDR MOODISPAW ORDERED LIVER LIPIDPaulding County Hospital [address] [place], [address] D BILI 0.14 mg/dL (Normal) Range: 0.00-0.30 T BILI 0.40 mg/dL (Normal) Range: 0.20-1.00 ALT 16 U/L (Normal) Range: 12-78 ALK P 112 U/L (Normal) Range: 50-136 AST 19 U/L (Normal) Range: 15-37 GLOB 3.9 g/dL (Abnormal) Range: 2.3-3.5 ALB 3.0 g/dL (Abnormal) Range: 3.4-5.0 T PROT 6.9 g/dL (Normal) Range: 6.4-8.2 :02 Blood Glucose , Office (93106) Blood Glucose , Office 160 (Normal) :37 HgA1C , Office (27906) Comments: 7.2 HgA1C , Office 7.2 % (Abnormal) Range: 4.6 - 7.1 :24 MRSA Culture (00495) Comments: [facility] [address] [place], [place], [address] MRSA RESULT Negative (Normal) :59 Metabolic Panel, Basic Comments: send to Dr.Masroor Urbina; PATIENT NOT FASTINGPERFORMED BY: LabCoCentraState Healthcare SystemEyxrga1482 [facility] [id number] Information: [id number] (09040) Calcium, Serum 10.7 mg/dL (Abnormal) Range: 8.7-10.3 [...] Glucose, Serum 182 mg/dL (Abnormal) Range: 65-99 4-Bqk-500783:09 MRSA Culture (94049) Comments: [facility] [address] [place], [address] MRSA RESULT POSITIVE (Abnormal) :39 Lipid Profile Comments: [facility] [address] [place], [address] VLDL 23 mg/dL (Normal) Range: 5-40 LDL [...] mg/dL High Risk :39 Liver Profile Comments: [facility] [address] [place], [address] ; non-emergent and handled by [...] Range: 6.4-8.2 :39 T4 Total, Thyroxin Comments: [place] [address] [place], [address] T4 THYROXIN 10.9 ug/dL (Normal) Range: 4.8-13.9 :39 Thyroid Stim Hormone (TSH) Comments: [facility] [address] [place], [address] TSH 3.63 {uIU/mL} (Normal) Range: 0.358-3.74 3-Reu-763765:13 LIPID PANEL (21278) Comments: PATIENT WAS FASTINGPERFORMED BY: [facility]6370 [facility] [id number] LDL/HDL Ratio 1.2 {ratio_units} (Normal) Range: 0.0-3.2 [...] Cholesterol, Total 160 mg/dL (Normal) Range: 100-199 7-Loa-924466:13 CBC W/AUTO DIFF WBC Comments: PATIENT WAS FASTINGPERFORMED BY: [facility]6370 [facility] [id number] Information: [id number] (33482) Immature Grans (Abs) 0.0 {x10E3/uL} (Normal) Range: [...] 3.77-5.28 WBC 4.5 {x10E3/uL} (Normal) Range: 3.4-10.8 2-Iqv-763977:13 METABOLIC PANEL, COMPREHENSIVE Comments: PATIENT WAS FASTINGPERFORMED BY: LabCoCentraState Healthcare SystemFkntmu6640 [facility] [id number] (60192) ALT (SGPT) 8 [iU]/L (Normal) Range: 0-32 [...] Glucose, Serum 109 mg/dL (Abnormal) Range: 65-99 2-Uuk-973686:15 Basic Metabolic Profile (BMP) Comments: [facility] [address] [place], [place], [address] GAP 7 (Normal) Range: 5-15 CO2 30.0 [...] 200 mg/dLsuggests DIABETES MELLITUS per A.D.A. criteria. 8-Tho-739793:15 CBC W/Diff, Automated Comments: [facility] [address] [place], [place], [address] Absolute Lymph 0.95 {X10_3/ul} (Normal) Range: 0.83-4.51 [...] K/mm3 (Normal) Range: 4.4-11.0 :31 LIPID PANEL (60886) Comments: PATIENT WAS FASTINGPERFORMED BY: LabCoCentraState Healthcare SystemOuzjyj4739 [facility] [id number]; non-emergent till apt LDL/HDL Ratio 1.6 {ratio_units} [...] Cholesterol, Total 219 mg/dL (Abnormal) Range: 100-199 86-Mqp-806444:31 CBC with auto diff Comments: PATIENT WAS FASTINGPERFORMED BY: LabCoCentraState Healthcare SystemGwyicg4483 [facility] [id number] Information: [id number] (58762) Immature Grans (Abs) 0.0 {x10E3/uL} (Normal) Range: [...] CREATININE RATIO Comments: PATIENT WAS FASTINGPERFORMED BY: LabCoCentraState Healthcare SystemQhnykn7058 [facility] [id number] (07697) AND (14587) Microalb/Creat Ratio 93.7 {mg/g_creat} (Abnormal) Range: 0.0-30.0 Microalbumin, Urine 196.4 ug/mL (Abnormal) Range: 0.0-17.0 Creatinine, Urine 209.7 mg/dL (Normal) Range: 15.0-278.0 :31 METABOLIC PANEL, COMPREHENSIVE Comments: PATIENT WAS FASTINGPERFORMED BY: [employer]6370 [facility] [id number] (90452) ALT (SGPT) 20 [iU]/L (Normal) Range: 0-32 [...] Glucose, Serum 120 mg/dL (Abnormal) Range: 65-99 10-Kul-656509:31 Hemoglobin Glyclated (HGB A1C) Comments: PATIENT WAS FASTINGPERFORMED BY: [employer]70 [facility] [id number] (61616) Hemoglobin A1c 7.6 % (Abnormal) Range: 4.8-5.6 Comments: . Pre-diabetes: 5.7 - 6.4 Diabetes: >6.4 Glycemic control for adults with diabetes: <7.0 33-Wic-150051:30 Urinalysis, Complete Comments: Order Date: 07/18/15How was Urine Obtained? CLEAN [facility] [address]rep[address] [place], [place], [address] MUCUS, URINE 0 SEEN {/hpf} (Normal) BACTERIA [...] (Abnormal) CLARITY Clear (Normal) COLOR Yellow (Normal) 90-Dwl-023756:43 CBC W/Diff, Automated Comments: [facility] [address] [place], [place], [address] PATH REV May foll (Normal) SMEAR COMMENT [...] 4.2-5.4 WBC 15.1 K/mm3 (Abnormal) Range: 4.4-11.0 13-Pos-352461:43 Comprehensive Metabolic Profil Comments: [facility] [address], [place], [address] GAP 8 (Normal) Range: 5-15 CO2 33.0 [...] Comments: To be drawn 6H after initial specimenWWestern Reserve Hospital [address] [place], [place], [address] LACTIC ACID 1.7 mmol/L (Normal) Range: 0.4-2.0 :43 Magnesium Comments: [facility] [address] [place], [place], [address](008) MG 1.3 mg/dL (Abnormal) Range: 1.8-2.4 :43 Partial Thromboplast Time Comments: [facility] [address] [place], [place], [phone] PTT 31.4 s (Normal) Range: 24.1-36.2 :43 Phosphorus Comments: [facility] [address] [place], [address] PHOS 1.0 mg/dL (Abnormal) Range: 2.5-4.9 Comments: Critical Result(s) Called at: 17:06:16 07/18/2015 by:Stacey ibarra rn 55-Iuw-998278:43 Prothrombin Time w/INR Comments: [facility] [address] [place], [place], [address](953) INR 0.9 (Normal) PROTIME 12.8 s (Normal) [...] with abnormal findings in adult : Reviewed Decal Transferrer Letter Indication: Encounter for annual general medical [...] - Strool Based DNA Test, CRC SCREEN (40942)Indication: Encounter for screening for malignant neoplasm of colon (Renamed from Special screening for malignant neoplasms, colon) On: 33-Kil-868865:05 Request FECAL OCCULT- Tubes sent home (83131)Indication: Encounter for screening for malignant neoplasm of colon (Renamed from Special screening for malignant neoplasms, colon) On: 23-Pfb-056650:09 Request Lipid Panel (37950)Indication: Diabetes mellitus type 2, insulin dependent On: 62-Rof-967756:08 Request Comments: around January Metabolic Panel, Comprehensive (69345)Indication: Diabetes mellitus type 2, insulin dependent On: 10-Lnf-631899:08 Request Comments: around January CBC, Platelets & Auto Diff (49922)Indication: Diabetes mellitus type 2, insulin dependent On: 06-Qmm-984777:08 Request Comments: around January TSH (78386)Indication: Diabetes mellitus type 2, insulin dependent On: 32-Piu-771670:08 Request Comments: around January Rapid Flu (32749 x 2)Indication: Unspecified Diagnosis On: 69-Xgn-57671:33 Request CBC & PLATELETS (AUTO) (58917)Indication: Abdominal pain On: 1-Vbi-165523:57 Request CULTURE, NOSE (02049)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 On: :31 Request Comments: check for MRSA MRSA Culture (54573)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 On: :23 Request Comments: rt axila HgA1C , Office (13623)Indication: Diabetes mellitus type 2, insulin dependent On: 52-Iey-689278:21 Request Urinalysis, Office (81567)Indication: History of MRSA infection On: 65-Gtz-633046:42 Request Hemoglobin Glyclated (HGB A1C) (34544)Indication: Diabetes mellitus type 2, uncontrolled On: 30-Rdp-001654:46 Request MICROALBUMIN: CREATININE RATIO (32213) AND (44169)Indication: Hypertensive heart disease without heart failure On: 44-Wsr-132794:46 Request Planned Encounters Medical; Overnight Pulse Ox Placement - On: 08-Jul-2018 13:00 Comprehensive Internal Medicine Visit, Nurse Medical; 3 Month FU - On: 28-Jul-2018 13:30 Comprehensive Internal Medicine Elsa Chopra CNP, CNP, Mary E Planned Procedures Overnight Pulse OX (56037)By: On: 30-Jun-2018 Intent Lee Ann Schafer DO SPIROMETRY PERFORMED (72026)By: On: 25-Jun-2018 Intent Visit, Nurse SPIROMETRY PERFORMED (36512)By: On: 25-Jun-2018 Intent Visit, Nurse SIX MINUTE WALK TEST (37370)By: On: 25-Jun-2018 Intent Visit, Nurse Flu Vaccine (Quadrivalent) [id number]: On: 20-May-2018 Intent Karly Chandra DEXA SCAN AXIAL SKELETON (72313)By: On: 18-Dec-2017 Intent Elsa Chopra CNP, CNP, Mary E SCREENING DIGITAL TOMOSYNTHESIS OF On: 18-Dec-2017 Intent BREAST (11192)By: Nav MCKINLEY OneliaMarly Chopra CNP [place] Flu Vaccine (Quadrivalent) [id number]: On: 11-Jun-2017 Intent Nav MCKINLEYElsa Nav MCKINLEY [place] Comments: InfluenzaLot #[id number]/18Site-L dltd, IMDose prefilled syringeVIS and ABN signedgiven by:GENARO blackwood PHYSICAL THERAPY TREATMENT On: 11-Dec-2016 Intent (27157)By: Adelita Doshi LPN PHYSICAL THERAPY EVALUATION On: 11-Dec-2016 Intent (66490)By: Elsa Chopra CNP, CNP [place] Toradol Injection, 30 mg On: 10-Dec-2016 Intent ([id number])By: Elsa Chopra CNP, CNP [place] Radiology - Hip - RightBy: Nav On: 10-Dec-2016 Intent ARLENElsa Nav MCKINLEY [place] Aerosol Treatment (60655)By: Tico On: 16-Oct-2016 Intent Adelita LAM Flu Vaccine (Quadrivalent) [id number]: On: 11-Jul-2016 Intent Nav MCKINLEY OneliaMarly Chopra CNP [place] Comments: FLUlot: [id number]:01/16site:Lt deltoidroute:IMdose:.5mlDEMICK, [place] Ultrasound - Abdomen CompleteBy: On: 03-Jul-2016 Intent Nav MCKINLEY OneliaMarly Chopra CNP [place] Radiology - KUBBy: Elsa Chopra CNP On: 03-Jul-2016 Intent Elsa العلي CNP DRAIN/INJECT SMALL JOINT OR BURSA On: 18-May-2016 Intent ()By: Elsa Chopra CNP Comments: to left wrist joint 1/2 cc kenalog, 1/2 cc marcaine. Kenalog lot #[id number] exp Marcain lot [id number] ex Elsa MCKINLEY MAMMOGRAM, SCREENING, BOTH BREAST On: 11-May-2016 Intent (73031)By: Elsa Chopra CNP, CNP, Mary E Radiology [...] mellitus without complication) : DISCONTINUED - URINALYSIS (08362) Indication: Diabetes mellitus type II, controlled, with no complications (Renamed from Controlled type 2 diabetes mellitus without complication) CKD (chronic kidney disease), stage III : DISCONTINUED - MICROALBUMIN: CREATININE RATIO (18809) AND (93633) Indication: CKD (chronic kidney disease), stage III Diabetes mellitus type II, controlled, with no complications (Renamed from Controlled type 2 diabetes mellitus without complication) : DISCONTINUED - CBC, PLATELETS & AUT DIFF (67742) Indication: Diabetes mellitus type II, controlled, with no complications (Renamed from Controlled type 2 diabetes mellitus without complication) Diabetes mellitus type II, controlled, with no complications (Renamed from Controlled type 2 diabetes mellitus without complication) : DISCONTINUED - METABOLIC PANEL, COMPREHENSIVE (84527) Indication: Diabetes mellitus type II, controlled, with no complications (Renamed from Controlled type 2 diabetes mellitus without complication) Diabetes mellitus type II, controlled, with no complications (Renamed from Controlled type 2 diabetes mellitus without complication) : DISCONTINUED - TSH (63877) Indication: Diabetes mellitus type II, controlled, with [...] dependent : DISCONTINUED - METABOLIC PANEL, BASIC (07006) Indication: Diabetes mellitus type 2, insulin dependent [...] patient does not have durable power of wire mesh filter fabricator or living will. The patient has noticed getting bored, poor spirits most of time and lack of energy. Other providers contributing to the lyndsey bolton's care are boiling tub operator () and urologist (). Note for [...] and is sleeping poorly. Patient has been UltiZen End: 18-Dec-2017 14:15 pliant with instructions. Current [...] and is sleeping poorly. Patient has been UltiZen End: 18-Sep-2017 13:50 pliant with instructions. Current [...] - Reason for ER visit: note: (surgery [facility]. ). The patient feels well with [...] MRSA. She has had pre-op testing at [facility] on 10-14-2015, for Lumbar microdecompression for 10-24-2015 Blood work. Business Development Specialist Dr. Dahl for papers to be signed [...] 19-Jul-2015 22:21 - sharp pain- went to [facility] ER). Current medication use: no side effects [...] surgeon- - recently went to er at [facility] on jul 14 - she was having [...]
--- OUTSIDE RECORDS SUMMARY | 2018-09-25 14:29 | XMS RPT_ITS | Continuity of Care Document ---
:1950 Author Organization [facility] Address [address] [facility] [address] [place] [address] Phone Care Team Providers Name Role Phone Nav ARLENElsa E Unavailable Malcolm STANLEY, Casey Florian Unavailable Linden DO , Dr. Aaron Diaz Unavailable John BatistaAnnalisa Unavailable Dr. Abimael Ag Unavailable Kirby STANLEY, Jared Galeano Unavailable Pascale Boston Unavailable Slarb SOLID WASTE MANAGER, Adelita Unavailable Unavailable Long SOLID WASTE MANAGER, Dora L Unavailable Unavailable Karly Chandra Unavailable [...] 585.3) Comments: follows with Dr. Munguia in [place], seen for sarcoidosis currently, stableGFR 42 Status: [...] on wean of steroid Scale 201-250. 5 -656 8 sulwg429-074 10 ogzxz804-541 12 units>401 15 unitsad ding metformin not [...] given in L arm subcutaneously paitent tolerated wellLOT#[id number]#2020 NOV 06 Status: Active Postmenopausal (Renamed from Postmenopausal status) (Z78.0, V49.81) Status: Active Pregnancies () Comments: 1. 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) Comments: Sees Ciara at [facility] for sarcoid in bone marrow just saw [...] MOY Start : 18-Jul-2015 Active VITAMIN D3, [id number] (Oral Capsule) 1 (one) Capsule Capsule once [...] q12hrs (100 MG) End : 05-Aug-2015 Discontinued Comments:[facility] MUPIROCIN, 2% (External Ointment) 1 (one) [...] : 05-Aug-2015 Discontinued Comments:1,250mg IV q24hrs x 19tzke2,500mg IV q24hrs #14 Allergies and Adverse Reactions [...] Comments: was seeing Dr. Munguia's partner in [place] Dr. Morel, gfr 43%, has proteinuria Status: [...] Visit Report Result: Comments: See Note; NOTES: [facility] [address] [place] [address] OFFICE VISIT Date of Service: 02/17/18 MR#: [id number] Acct: [id number] Name: SHREYAS KATHLEEN Rep #: [id number] : 1950 Provider: Casey Fowler MD Age/Sex: 67/F Location: [facility] Status: Signed HPI HPI Details: SHREYAS KATHLEEN, is a 67 F who presents to the office today for for outpatien t cardiovascular follow-up of her history of underlying CAD, non-ST segment elevation [place], paroxysmal atrial fibrillation, superimposed upon a history [...] PFSH Medical History Atherosclerotic heart disease of [place] coronary artery without angina pectoris (Chronic) History [...] stenosis Assessment AND Plan 1. Atherosclerosis of [place] coronary artery of [place] heart without angina pectoris I25.10 Mild Plan [...] be scheduled for an outpatient visit in [facility] 9 months unless needed sooner. Thank you for allowing me to participate in the care of your patient. Please don't hesitate to call if any issues arise. This note was generated using a voice Promobucket system and there may be incorrect words, spelling or punctuation that were not noted when reviewing the office note prior to saving. Follow Up 9 Months Coding Level of Care Code Off glen rodríguez,kelly l 4 Diagnoses Atherosclerosis of [place]-nine [place] coronary artery of [place]nine [place] heart without angina pectoris I25.10 [place] vs. transplanted heart: [place]nine [place] heart Paroxysmal atrial fibrillation I48.0 Hyperlipidemia, u nspecified hyperlipidemia type E78.5 Hyperlipidemia type: unspecified Essential hypertension I10 Hypertension type: essential hypertension Long-term use of high-risk medication Z79.899 Coding Level of Care Code Off glen rodríguez,level 4 Diagnoses Atherosclerosis of [place] coronary artery of [place] heart without angina pectoris I25.10 [place] vs. transplanted heart: [place] heart Paroxysmal atrial fibrillat ion I48.0 Hyperlipidemia, unspecified hyperlipidemia type E78.5 Hyperlipidemia type: unspecified Essential hypertension I10 Hypertension type: essential hypertension Long-term use of high-risk medicatio n Z79.899 02/17/18 1530 <Electronically signed by Casey Fowler MD> Date Casey oFwler MD Cosigner Signature: Date _ (if applicable) CC: Elsa Chopra NP 14-Feb-2018 SCREENING MAMM (CAD), BILAT Result: Comments: See Note; NOTES: [facility] Imaging Services [address] [place] [address] SCREENING MAMM (CAD), BILAT MR#: [id number] Acct: [id number] Name: SHREYAS KATHLEEN Rep #: [id number] : 1950 F 67 From: Elias Finn MD PCP: Elsa Chopra NP Status: REG CLI Study: SCREENING MAMM (CAD), BILAT Date of Exam: 02/14/18 Exam# [id number] Ordering Dr: Elsa Chopra MAMMO GRAPHY - [...] [facility] facility within 30 days. Approximately 10% of breast cancers are not detected by mammography. A normal mammogram should not delay biopsy of a clinically suspicious abnormality. [id number] Elect ronically Signed: Elias Finn MD at 8:30 EDT Tel [phone], Service support , CC: Elsa Chopra NP Insurance Sales Producer: Signed 21-Jan-2018 Dexa Bone Density Study Result: Comments: See Note; NOTES: [facility] Imaging Services [address] [place] [address] Dexa Bone Density Study MR#: [id number] Acct: [id number] Name: SHREYAS KATHLEEN Rep #: [id number] : 1950 F 67 From: Elias Finn MD PCP: Elsa Chopra NP Status: REG CLI Study: Dexa Bone Density Study Date of Exam: 01/21/18 Exam# [id number] Ordering Dr: Elsa Chopra STUDY: DUAL E [...] osteopenic as outlined below according to World Jeuss Organization (WHO) criteria with a moderate fracture [...] Elias Finn MD at 15:36 EDT Tel [phone], Service support , CC: Elsa Chopra NP Insurance Sales Producer: Signed 10-Dec-2016 Hip 2-3 Views with Pelvis Result: Comments: See Note; NOTES: [facility] Imaging Services [address] [place] [address] Verdana 4d Hip 2-3 Views with Pelvis MR#: [id number] Acct: [id number] Name: SHREYAS KATHLEEN Keira Rep #: [id number] : 1950 F 66 From: Herve Jimenez MD PCP: Elsa Chopra Status: REG CLI Study: Hip 2-3 Views with Pelvis Date of Exam: 12/10/16 Exam# [id number] Ordering Dr: Elsa Chopra STUDY : X-RAY [...] FACR at 11:31 EDT , Service support [phone], CC: Elsa Chopra Insurance Sales Producer: Signed 05-Jul-2016 Abdomen Complete Result: Comments: See Note; NOTES: [facility] Imaging Services [address] [place] [address] Verdana 4d Abdomen Complete MR#: [id number] Acct: [id number] Name: SHREYAS KATHLEEN Keira Rep #: [id number] : 1950 F 66 From: Elias Finn MD PCP: Elsa Chopra Status: REG CLI Study: Abdomen Complete Date of Exam: 07/05/16 Exam# [id number] Ordering Dr: Elsa Chopra STUDY: ABDOMINAL ULTRASOUND [...] Elias Finn MD at 9:35 EDT Tel [phone], Service support [phone], CC: Elsa Chopra Insurance Sales Producer: Signed 05-Jul-2016 Abdomen Single View Result: Comments: See Note; NOTES: [facility] Imaging Services [address] [place] [address] Verdana 4d Abdomen Single View MR#: [id number] Acct: [id number] Name: SHREYAS KATHLEEN Rep #: [id number] : 1950 F 66 From: Elias Finn MD PCP: Elsa Chopra Status: REG CLI Study: Abdomen Single View Date of Exam: 07/05/16 Exam# [id number] Ordering Dr: Elsa Chopra STUDY: X-RA Y [...] of the L1 vertebrae. ORDER # : [id number] RAD/Abdomen Single View IMPRESSION: Moderate amount of fecal material is seen in the colon. Electronically Signed: Elias Finn MD at 10:34 EDT Tel [phone], Service sup port [phone], CC: Elsa Chopra Insurance Sales Producer: Signed 18-May-2016 Bilat Scrn Digital AND CAD Result: Comments: See Note; NOTES: [facility] Imaging Services [address] [place] [address] Verdana 4d Bilat Scrn Digital AND CAD MR#: [id number] Acct: [id number] Name: JACINTO KATHLEEN Rep #: [id number] : 1950 F 65 From: Elias Finn MD PCP: Elsa Chopra Status: REG CLI Study: Bilat Scrn Digital AND CAD Date of Exam: 05/18/16 Exam# [id number] Ordering Dr: Elsa Chopra MAMMOGRAPHY - BILATERAL [...] biopsy of a clinically suspicious abnor mality. [id number] Electronically Signed: Elias Finn MD at 12:53 EDT Tel [phone], Service support [phone], CC: Elsa Chopra Insurance Sales Producer: Signed 14-Feb-2016 Shoulder min 2 Views Result: Comments: See Note; NOTES: [facility] Imaging Services [address] [place] [address] Oscar 4d Shoulder min 2 Views MR#: [id number] Acct: [id number] Name: SHREYAS KATHLEEN Rep #: [id number] : 1950 F 65 From: Herve Jimenez MD PCP: Madeline Florez DO Status: REG CLI Study: Shoulder min 2 Views Date of Exam: 02/14/16 Exam# [id number] Ordering Dr: Pascale Boston DO STUDY: X-RAY [...] FACR at 14:50 EDT , Service support [phone], Fax RAD/Shoulder min 2 Views IMPRESSION: Bilateral of the acromioclavicular joint, otherwise normal x-ray examination of the shoulder. Electronically Signed: Herve Jimenez MD, FACR at 14:50 EDT , Service support [phone], CC: Pascale Boston DO; Madeline Florez DO Insurance Sales Producer: Signed 21-Oct-2015 Spirometry (81724) Comments: mod restriction Result: 19-Sep-2015 Chest PA and Lateral Result: Comments: See Note; NOTES: [facility] Imaging Services [address] [place] [address] Verdana 4d Chest PA and Lateral MR#: [id number] Acct: [id number] Name: SHREYAS KATHLEEN Rep #: [id number] : 1950 F 65 From: Elias Finn MD PCP: Madeline Florez DO Status: REG CLI Study: Chest PA and Lateral Date of Exam: 09/19/15 Exam# [id number] Ordering Dr: Madeline Florez DO STUDY: X-RAY [...] Elias Finn MD at 13:58 EST Tel [phone], Service support [phone], RAD/Chest PA and Lateral IMPRESSION: Stable examination. No acute abnormality is seen. Electronically Doirs d: Elias Finn MD at 13:58 EST Tel [phone], Service support [phone], CC: Madeline Florez DO Insurance Sales Producer: Signed 25-Aug-2015 Spine Lumbar (Routine) Result: Comments: See Note; NOTES: [facility] Imaging Services [address] [place] [address] Verdana 4d Spine Lumbar (Routine) MR#: [id number] Acct: [id number] Name: SHREYAS MAJOR Rep #: [id number] : 1950 F 65 From: Herve Jimenez MD PCP: Madeline Florez DO Status: REG CLI Study: Spine Lumbar (Routine) Date of Exam: 08/25/15 Exam# [id number] Ordering Dr: ELIZABETH DE LEON M.D. STUDY: [...] FACR at 17:43 EST , Service support [phone], CC: ELIZABETH DE LEON M.D.; Madeline Florez DO Insurance Sales Producer: Signed 25-Aug-2015 Spine Thoracic (Routine) Result: Comments: See Note; NOTES: [facility] Imaging Services [address] [place] [address] 4d Spine Thoracic (Routine) MR#: [id number] Acct: [id number] Name: SHREYAS SHARIF Keira Rep #: [id number] : 1950 F 65 From: Herve Jimenez MD PCP: Madeline Florez DO Status: REG CLI Study: Spine Thoracic (Routine) Date of Exam: 08/25/15 Exam# [id number] Ordering Dr: ELIZABETH RUIZ M.D. STUDY: MRI [...] FACR at 17:45 EST , Service support [phone], CC: ELIZABETH DE LEON M.D.; Komal Florez DO Insurance Sales Producer: Signed 17-Aug-2015 Chest PA and Lateral Result: Comments: See Note; NOTES: [facility] Imaging Services [address] [place] [address] Verdana 4d Chest PA and Lateral MR#: [id number] Acct: [id number] Name: SHREYAS KATHLEEN Rep #: [id number] : 1950 F 65 From: Elias Finn MD PCP: Madeline Florez DO Status: REG CLI Study: Chest PA and Lateral Date of Exam: 08/17/15 Exam# [id number] Ordering Dr: Madeline Florez DO STUDY: X-RAY [...] Elias Finn MD at 11:09 EST Tel [phone], Service support [phone], Fax RAD/Chest PA and Lateral IMPRESSION: Residual changes persist in the right middle lobe and there has been some improvement. Further followup is recommended. Electr onically Signed: Elias Finn MD at 11:09 EST Tel [phone], Service support [phone], CC: Madeline Florez DO Insurance Sales Producer: Signed 12-Aug-2015 Discharge Instruction Result: Comments: See Note; NOTES: [facility] Medical Records Department [address] [place] [address] Discharge Instruction 08/10/15 1702 MR#: [id number] Acct: [id number] Name: SHREYAS KATHLEEN Rep #: [id number] : 1950 65 From: Denny Bone MD [...] problems, contact your doctor. Call [facility] ([phone]) or report to the closest Emergency Room. Call 911 if necessary. 08/12/15 1502 <Elect ronically signed by Denny Bone MD> Date Denny Bone MD Cosigner Signature (If Indicated): Date CC: Madeline Florez DO 12-Aug-2015 Emergency Department Summary Result: Comments: See Note; NOTES: [facility] Medical Records Department [address] [place] [address] Emergency Department Summary MR#: [id number] Acct: [id number] Name: SHREYAS KATHLEEN Rep #: [id number] : 1950 65 From: Denny Bone MD [...] the patient had blood cultures obtained at [facility] and they were called to [...] Nacho Ramirez C: Madeline Bonilla MD T: [facility] JOB: [id number] 08/12/15 1502 <Electronically signed by Denny Bone MD> Date Denny Bone MD Cosigner Signature (If Indicated): Date ___ CC: Madeline Florez DO; Katelyn Arenas MD Date Dictated: 08/10/151708 Date Transcribed: 08/10/151708 Insurance Sales Producer: Signed Social History Name Dates Details No [...] kg/m2 Body Surface Area Calculated 1.85 m2 61-Mwt-507506:20 Temperature 97.8 f Comments: Method: Temporal Pulse [...] kg/m2 Body Surface Area Calculated 1.97 m2 93-Dfz-933739:34 BP Systolic 130 mm[Hg] Comments: Patient Position: Sitting BP Diastolic 80 mm[Hg] Comments: Patient Position: Sitting 72-Zuu-080434:03 Temperature 98 f Comments: Method: Temporal Pulse [...] Comments: Jun 19; PATIENT WAS FASTINGPERFORMED BY: [facility] VenturesJFK Johnson Rehabilitation InstituteRvfwgx2998 [facility] [id number] (23459) AND (72663) Alb/Creat Ratio 266.9 {mg/g_creat} (Abnormal) Range: 0.0-30.0 Albumin, Urine 168.7 ug/mL (Normal) Creatinine, Urine 63.2 mg/dL (Normal) :00 Metabolic Panel, Comprehensive Comments: Jun 19; PATIENT WAS FASTINGPERFORMED BY: [facility] VenturesJFK Johnson Rehabilitation InstituteIlhxah9777 [facility] [id number] (09453) ALT (SGPT) 14 [iU]/L (Normal) Range: 0-32 [...] 8-27 Glucose 121 mg/dL (Abnormal) Range: 65-99 80-Wmp-12634:00 HGB A1C (23367) Comments: June 19; PATIENT WAS FASTINGPERFORMED BY: [facility] [id number] Hemoglobin A1c 7.0 % (Abnormal) Range: 4.8-5.6 Comments: . Prediabetes: 5.7 - 6.4 Diabetes: >6.4 Glycemic control for adults with diabetes: <7.0 47-Lrb-888705:33 ALKALINE PHOSPHATASE-ISOENZYM Comments: PATIENT NOT FASTINGPERFORMED BY: [facility] [id number] (61083) Intestinal Frac.: 0 % (Normal) Range: 0-18 Bone Fraction: 27 % (Normal) Range: 14-68 Liver Fraction: 73 % (Normal) Range: 18-85 Alkaline Phosphatase 89 [iU]/L (Normal) Range: 39-117 51-Bbt-521241:33 CBC, Platelets & Auto Diff Comments: PATIENT NOT FASTINGPERFORMED BY: [facility] [id number] (52740) Immature Grans (Abs) 0.0 {x10E3/uL} (Normal) Range: [...] 3.77-5.28 WBC 5.9 {x10E3/uL} (Normal) Range: 3.4-10.8 40-Dir-830933:22 HgA1C , Office (21905) Comments: 7.3 HgA1C , Office 7.3 % (Abnormal) Range: 4.6 - 7.1 65-Qgv-539801:22 Blood Glucose , Office (03319) Blood Glucose , Office 173 (Normal) 36-Mdw-37177:40 Basic Metabolic Profile (BMP) Comments: SEND RESULTS OF BMP TO .[facility] [address] [place], [address] GAP 11 (Normal) Range: 5-15 CO2 27.0 [...] A.D.A. criteria.Please note revised GLUCOSE reference range ydaeoqvxe18/02/2018. 17-Moq-75263:40 Liver Profile Comments: SEND RESULTS OF BMP TO .[facility] [address] [place], [address] D BILI 0.09 mg/dL (Normal) Range: 0.00-0.30 T BILI 0.40 mg/dL (Normal) Range: 0.20-1.00 ALT 22 U/L (Normal) Range: 13-56 ALK P 103 U/L (Normal) Range: 45-117 AST 17 U/L (Normal) Range: 15-37 GLOB 4.0 g/dL (Normal) Range: 2.2-4.2 ALB 3.8 g/dL (Normal) Range: 3.2-5.0 T PROT 7.8 g/dL (Normal) Range: 6.4-8.2 10-Ixt-574099:41 CALCIFEDIOL (31581) Comments: PATIENT WAS FASTINGPERFORMED BY: LabCoJFK Johnson Rehabilitation InstituteBokzod7822 [facility] [id number] Vitamin D, 25-Hydroxy 44.2 ng/mL (Normal) Range: 30.0-100.0 Comments: Vitamin D deficiency has been defined by the [place] of[place]icine and an Endocrine Society practice guideline as alevel of serum 25-OH vitamin D less than 20 ng/mL (1,2).The Endocrine Society went on to further define vitamin Dinsufficiency as a level between 21 and 29 ng/mL (2).1. IOM ([place] of Medicine). 2010. Dietary reference intakes for calcium and D. [place]: The National Academies Press.2. Jacinto MF, Eddy NOGUEIRA, Quintin JAVED, et al. Evaluation, treatment, and prevention of vitamin D deficiency: an Endocrine Society clinical practice guideline. JCEM. 2010; 96(7):1911-30. 27-Qkx-704978:41 METABOLIC PANEL, Comments: PATIENT WAS FASTINGPERFORMED BY: LabCoJFK Johnson Rehabilitation InstituteJdbbax6048 [facility] [id number] Information: 855861,X68197; OV 03/19 COMPREHENSIVE (39709) ALT (SGPT) 15 [iU]/L (Normal) Range: 0-32 [...] 8-27 Glucose 143 mg/dL (Abnormal) Range: 65-99 91-Hxz-766228:31 Blood Glucose , Office (62454) Blood Glucose , Office 211 (Normal) 96-Sim-486829:31 HgA1C , Office (31126) HgA1C , Office 6.8 % (Normal) Range: 4.6 - 7.1 22-Loc-143940:33 CBC, Platelets & Auto Diff Comments: PATIENT WAS FASTINGPERFORMED BY: LabCoJFK Johnson Rehabilitation InstituteObtrgx0532 [facility] [id number] (78602) Immature Grans (Abs) 0.0 {x10E3/uL} (Normal) Range: [...] 3.77-5.28 WBC 7.7 {x10E3/uL} (Normal) Range: 3.4-10.8 79-Osw-369327:33 Lipid Panel (51614) Comments: PATIENT WAS FASTINGPERFORMED BY: [employer] Zwveab0718 [facility] [id number] LDL/HDL Ratio 0.9 {ratio} (Normal) Range: 0.0-3.2 [...] Panel, Comprehensive Comments: PATIENT WAS FASTINGPERFORMED BY: Myzelin6370 [facility] [id number] (20659) ALT (SGPT) 18 [iU]/L (Normal) Range: 0-32 [...] CREATININE RATIO Comments: PATIENT WAS FASTINGPERFORMED BY: [facility] [id number] (04294) AND (04580) Alb/Creat Ratio 225.5 {mg/g_creat} (Abnormal) Range: 0.0-30.0 Albumin, Urine 112.5 ug/mL (Normal) Creatinine, Urine 49.9 mg/dL (Normal) :33 URINALYSIS (44034) Comments: PATIENT WAS FASTINGPERFORMED BY: [facility] [id number] Microscopic Examination See below: (Normal) Comments: Microscopic was indicated and was performed. Nitrite, Urine Negative (Normal) Urobilinogen,Semi-Qn 0.2 mg/dL (Normal) Range: 0.2-1.0 Bilirubin Negative (Normal) Occult Blood Negative (Normal) Ketones Negative (Normal) Glucose Negative (Normal) Protein Trace (Normal) WBC Esterase 2+ (Abnormal) Appearance Clear (Normal) Urine-Color Yellow (Normal) pH 6.5 (Normal) Range: 5.0-7.5 Specific [place] 1.014 (Normal) Range: 1.005-1.030 :33 TSH (47019) Comments: PATIENT WAS FASTINGPERFORMED BY: [facility] [id number] TSH 3.870 {uIU/mL} (Normal) Range: 0.450-4.500 62-Lco-516058:33 Microscopic Examination Comments: PATIENT WAS FASTINGPERFORMED BY: [facility] [id number] Bacteria Few (Normal) Mucus Threads Present (Normal) Cast Type Hyaline casts (Normal) Casts Present {/lpf} (Abnormal) Epithelial Cells (non renal) >10 {/hpf} (Abnormal) Range: 0 - 10 RBC 0-2 {/hpf} (Normal) Range: 0 - 2 WBC 11-30 {/hpf} (Abnormal) Range: 0 - 5 :57 HgA1C , Office (50710) Comments: 6.6 HgA1C , Office 6.6 % (Normal) Range: 4.6 - 7.1 :57 Blood Glucose , Office (70829) Blood Glucose , Office 211 (Normal) :53 HEPATIC FUNCTION PANEL Comments: PATIENT NOT FASTINGPERFORMED BY: [facility] [id number] (90275) ALT (SGPT) 13 [iU]/L (Normal) Range: 0-32 AST (SGOT) 17 [iU]/L (Normal) Range: 0-40 Alkaline Phosphatase, S 89 [iU]/L (Normal) Range: 39-117 Bilirubin, Direct 0.08 mg/dL (Normal) Range: 0.00-0.40 Bilirubin, Total <0.2 mg/dL (Normal) Range: 0.0-1.2 Albumin, Serum 4.2 g/dL (Normal) Range: 3.6-4.8 Protein, Total, Serum 6.8 g/dL (Normal) Range: 6.0-8.5 :53 YAUVT-NQEKMEBLEUR-VHXYK (83527) Comments: PATIENT NOT FASTINGPERFORMED BY: mobiManage70 [facility] [id number] AFP, Serum, Tumor Marker 2.6 ng/mL (Normal) Range: 0.0-8.3 Comments: Rosmery ECLIA methodology :53 ALKALINE PHOSPHATASE-ISOENZYM Comments: PATIENT NOT FASTINGPERFORMED BY: [facility] [id number] (22536) Intestinal Frac.: 5 % (Normal) Range: 0-18 Bone Fraction: 24 % (Normal) Range: 14-68 Liver Fraction: 71 % (Normal) Range: 18-85 73-Zwe-164574:11 ALKALINE PHOSPHATASE-ISOENZYM Comments: PATIENT NOT FASTINGPERFORMED BY: NEY [facility] Ndnlbf4[address] Road[address]ublin [place] [id number] (05985) Intestinal Frac.: 3 % (Normal) Range: 0-18 Bone Fraction: 19 % (Normal) Range: 14-68 Liver Fraction: 78 % (Normal) Range: 18-85 Alkaline Phosphatase, S 122 [iU]/L (Abnormal) Range: 39-117 61-Jih-067666:11 CALCIFEDIOL (16341) Comments: PATIENT NOT FASTINGPERFORMED BY: [facility] Obsuvh36[address] RoadDublin [place] [id number] Vitamin D, 25-Hydroxy 37.5 ng/mL (Normal) Range: 30.0-100.0 Comments: Vitamin D deficiency has been defined by the [place] of[place]icine and an Endocrine Society practice guideline as alevel of serum 25-OH vitamin D less than 20 ng/mL (1,2).The Endocrine Society went on to further define vitamin Dinsufficiency as a level between 21 and 29 ng/mL (2).1. IOM ([place]). 2010. Dietary reference intakes for calcium and D. [place]: The National Academies Press.2. Jacinto MF, Eddy NC, Anay-Gonzalo JAVED, et al. Evaluation, treatment, and prevention of vitamin D deficiency: an Endocrine Society clinical practice guideline. JCEM. 2010; 96(7):1911-30. 63-Mdj-760623:11 TSH (63028) Comments: PATIENT NOT FASTINGPERFORMED BY: [facility] Qibmey8[address] RoadDublin [place] [id number] TSH 1.620 {uIU/mL} (Normal) Range: 0.450-4.500 12-Dai-532588:11 T4, FREE (THYROXINE) (12308) Comments: PATIENT NOT FASTINGPERFORMED BY: [facility] Stnbqg5549 Santana RoadDublin [place] [id number] T4,Free(Direct) 1.00 ng/dL (Normal) Range: 0.82-1.77 36-Gay-489003:11 T3, FREE (TRIDOTHYRONINE) (89142) Comments: PATIENT NOT FASTINGPERFORMED BY: [facility] Ccgkzr9330 [facility] [id number] Triiodothyronine,Free,Serum 2.5 pg/mL (Normal) Range: 2.0-4.4 :08 HgA1C , Office (89510) HgA1C , Office 7.4 % (Abnormal) Range: 4.6 - 7.1 :08 Blood Glucose , Office (38926) Blood Glucose , Office 190 (Normal) :30 Lipid Profile Comments: Order Date: 12/12/16Order Info: 0788-1 - *Hepatic Function PanelOrder Info: 89450-2 - *Lipid Profile CC PCPComments: 12 hours fasting, may have water.Comments: 6 months / [facility] Fnppqdxlro[address]82 [facility] [address] [place], [place], [address] VLDL 46 mg/dL (Abnormal) Range: 5-40 LDL [...] Info: 0788-1 - *Hepatic Function PanelOrder Info: 45813-1 - *Lipid Profile CC PCPComments: 12 hours fasting, may have water.Comments: 6 months / [facility]WM[facility] [address] [place], [place], [id number] D BILI 0.11 mg/dL (Normal) Range: 0.00-0.30 T BILI 0.40 mg/dL (Normal) Range: 0.20-1.00 ALT 19 U/L (Normal) Range: 12-78 ALK P 132 U/L (Abnormal) Range: 45-117 AST 15 U/L (Normal) Range: 15-37 GLOB 4.3 g/dL (Abnormal) Range: 2.3-3.5 ALB 3.5 g/dL (Normal) Range: 3.4-5.0 T PROT 7.8 g/dL (Normal) Range: 6.4-8.2 6-Zjy-377843:55 TSH (THYROID STIMULATING Comments: Week of Apr 09; PATIENT NOT FASTINGPERFORMED BY: [facility] [id number] HORMONE) (55912) TSH 0.728 {uIU/mL} (Normal) Range: 0.450-4.500 :55 HgA1C , Office (77978) HgA1C , Office 6.9 % (Normal) Range: 4.6 - 7.1 :55 Blood Glucose , Office (30477) Blood Glucose , Office 143 (Normal) 06-Tsa-329974:11 Microscopic Examination Comments: PATIENT WAS FASTINGPERFORMED BY: [facility] [id number] Bacteria Few (Normal) Mucus Threads Present (Normal) Cast Type Hyaline casts (Normal) Casts Present {/lpf} (Abnormal) Epithelial Cells (non renal) 0-10 {/hpf} (Normal) Range: 0 - 10 RBC 0-2 {/hpf} (Normal) Range: 0 - 2 WBC 6-10 {/hpf} (Abnormal) Range: 0 - 5 19-Aho-439219:11 URINALYSIS, W/ MICRO (57723) Comments: January 2017; PATIENT WAS FASTINGPERFORMED BY: [facility]ilioW[facility] [id number] Microscopic Examination See below: (Normal) Comments: Microscopic was indicated and was performed. Nitrite, Urine Negative (Normal) Urobilinogen,Semi-Qn 0.2 mg/dL (Normal) Range: 0.2-1.0 Bilirubin Negative (Normal) Occult Blood Negative (Normal) Ketones Negative (Normal) Glucose Trace (Abnormal) Protein 1+ (Abnormal) WBC Esterase 1+ (Abnormal) Appearance Clear (Normal) Urine-Color Yellow (Normal) pH 6.5 (Normal) Range: 5.0-7.5 Specific [place] 1.016 (Normal) Range: 1.005-1.030 58-Get-334745:11 MICROALBUMIN: CREATININE RATIO Comments: January 2017; PATIENT WAS FASTINGPERFORMED BY: [employer] Wnhckj1593 [facility] HospitalSwiftoW[facility] [id number] ([id number]) AND (56033) Microalb/Creat Ratio 208.2 {mg/g_creat} (Abnormal) Range: 0.0-30.0 Microalbumin, Urine 182.2 ug/mL (Normal) Creatinine, Urine 87.5 mg/dL (Normal) 53-Rbs-263647:11 CBC, Platelets & Auto Diff Comments: January 2017; PATIENT WAS FASTINGPERFORMED BY: [employer] Ekdvld5978 [facility] SoftwareW[facility] [id number] ([id number]) Immature Grans (Abs) 0.0 {x10E3/uL} (Normal) Range: [...] 3.77-5.28 WBC 5.6 {x10E3/uL} (Normal) Range: 3.4-10.8 20-Rjp-508093:11 Metabolic Panel, Comprehensive Comments: January 2017; PATIENT WAS FASTINGPERFORMED BY: LabCoJFK Johnson Rehabilitation InstituteLdqjei4938 [facility] [id number] ([id number]) ALT (SGPT) 13 [iU]/L (Normal) Range: 0-32 [...] Glucose, Serum 120 mg/dL (Abnormal) Range: 65-99 41-Pnc-367677:11 TSH (THYROID STIMULATING Comments: January 2017; PATIENT WAS FASTINGPERFORMED BY: [facility] Doxbop8518 [facility] [id number] HORMONE) (31303) TSH 0.982 {uIU/mL} (Normal) Range: 0.450-4.500 4-Xwm-297034:02 Lipid Profile Comments: Order Date: 12/04/16Order Info: [id number] - *Hepatic Function PanelOrder Date: 12/04/16Order Info: [id number] - *Lipid Profile CC PCPComments: 12 hours fasting, may have water.[place] [address] [place], [place], [id number] VLDL 36 mg/dL (Normal) Range: 5-40 LDL [...] 200-240 mg/dL Borderline >240 mg/dL High Risk 3-Qqb-463202:02 Liver Profile Comments: Order Date: 12/04/16Order Info: [id number] - *Hepatic Function PanelOrder Date: 12/04/16Order Info: [id number] - *Lipid Profile CC PCPComments: 12 hours fasting, may have water.[place] [address] [place], [place], [address] D BILI 0.07 mg/dL (Normal) Range: 0.00-0.30 T BILI 0.30 mg/dL (Normal) Range: 0.20-1.00 ALT 21 U/L (Normal) Range: 12-78 ALK P 112 U/L (Normal) Range: 45-117 AST 19 U/L (Normal) Range: 15-37 GLOB 3.8 g/dL (Abnormal) Range: 2.3-3.5 ALB 3.4 g/dL (Normal) Range: 3.4-5.0 T PROT 7.2 g/dL (Normal) Range: 6.4-8.2 13-Zha-997823:29 URINE RANDELL CULTURE-ZEINAB COL Comments: PATIENT NOT FASTINGPERFORMED BY: LogicworksAlbuquerque Indian Dental ClinicCjldna5890 [facility] [id number] Information: SRC:UC COUNT (00163) Result 1 MUG (Normal) Comments: Mixed urogenital flora25,000-50,000 colony forming units per mL Urine Final report (Normal) Culture,Comprehensive 27-Rfg-356700:53 Urinalysis, Office (13418) UA - LEUKOCYTE ESTERASE Small (Normal) UA - NITRITE Negative (Normal) URINE UROBILINGN ZEINAB TIMED Normal mg/dL (Normal) UA - PROTEIN Negative mg/dL (Normal) UA - PH 7 (Normal) UA - BLOOD Negative (Normal) UA - SPECIFIC GRAVITY 1.020 (Normal) UA - KETONES Negative mg/dL (Normal) UA - BILIRUBIN Small (Normal) UA - GLUCOSE Negative (Normal) 52-Vqx-268043:51 Blood Glucose , Office (82087) Comments: 169 Blood Glucose , Office 169 (Normal) :52 HgA1C , Office (29244) Comments: 7.0 HgA1C , Office 7.0 % (Normal) Range: 4.6 - 7.1 :22 URINE RANDELL CULTURE-IDENTIFICATN Comments: PATIENT NOT FASTINGPERFORMED BY: LabVeterans Affairs [facility] System6370 [facility] [id number] Information: SRC:UC (93833) Result 1 MUG (Normal) Comments: Mixed urogenital flora10,000-25,000 colony forming units per mL Urine Final report (Normal) Culture,Comprehensive 94-Doj-281567:05 Urinalysis, Office (12968) UA - LEUKOCYTE ESTERASE Negative (Normal) UA - NITRITE Negative (Normal) URINE UROBILINGN ZEINAB TIMED Normal mg/dL (Normal) UA - PROTEIN 30 mg/dL (Normal) UA - PH 6 (Abnormal) UA - BLOOD non-hemolyzed trace (Normal) UA - SPECIFIC GRAVITY 1.020 (Normal) UA - KETONES Negative mg/dL (Normal) UA - BILIRUBIN Negative (Normal) UA - GLUCOSE 100 (Abnormal) :42 HgA1C , Office (31870) HgA1C , Office 6.2 % (Normal) Range: 4.6 - 7.1 :42 Blood Glucose , Office (18739) Blood Glucose , Office 137 (Normal) :01 TSH (THYROID STIMULATING Comments: PATIENT NOT FASTINGPERFORMED BY: [employer] [facility] [id number] HORMONE) (83247) TSH 1.820 {uIU/mL} (Normal) Range: 0.450-4.500 :03 HEPATIC FUNCTION PANEL Comments: PATIENT NOT FASTINGPERFORMED BY: [employer] [facility] [id number] (23159) ALT (SGPT) 15 [iU]/L (Normal) Range: 0-32 AST (SGOT) 23 [iU]/L (Normal) Range: 0-40 Alkaline Phosphatase, S 95 [iU]/L (Normal) Range: 39-117 Bilirubin, Direct 0.12 mg/dL (Normal) Range: 0.00-0.40 Bilirubin, Total 0.3 mg/dL (Normal) Range: 0.0-1.2 Albumin, Serum 4.3 g/dL (Normal) Range: 3.6-4.8 Protein, Total, Serum 7.3 g/dL (Normal) Range: 6.0-8.5 :03 OWBLJ-QNYOXRDIRTK-RBCBT (58585) Comments: PATIENT NOT FASTINGPERFORMED BY: [employer] [facility] [id number] AFP, Serum, Tumor Marker 2.8 ng/mL (Normal) Range: 0.0-8.3 Comments: Rosmery ECLIA methodology :03 HEPATITIS PANEL (41539) Comments: PATIENT NOT FASTINGPERFORMED BY: [employer] [facility] [id number] Hep C Virus Ab <0.1 {s/co_ratio} (Normal) Range: 0.0-0.9 Comments: Negative: < 0.8 Indeterminate: 0.8 - 0.9 Positive: > 0.9 . The CDC recommends that a positive HCV antibody result be followed up with a HCV Nucleic Acid Amplification test (001201). Hep B Core Ab, IgM Negative (Normal) HBsAg Screen Negative (Normal) Hep A Ab, IgM Negative (Normal) :58 CBC W/Diff, Automated Comments: CBCD FOR DR CHATMANNorth Adams Regional Hospitalisma [facility] [address] [place], [address] Absolute Lymph 1.84 {X10_3/ul} (Normal) Range: 0.83-4.51 [...] Comments: Order Date: 05/14/16Interface Comments: Reason:Order Date: 05/14/16[facility] [address] [place], [address] T4 THYROXIN 11.6 ug/dL (Normal) Range: 4.8-13.9 :58 Thyroid Stim Hormone (TSH) Comments: Order Date: 05/14/16Interface Comments: Reason:Order Date: 05/14/16[facility] [address] [place], [address] TSH 1.96 {uIU/mL} (Normal) Range: 0.358-3.74 :11 Urinalysis, Office (31308) UA - LEUKOCYTE ESTERASE Small (Normal) UA - NITRITE Negative (Normal) URINE UROBILINGN ZEINAB TIMED Normal mg/dL (Normal) UA - PROTEIN 30 mg/dL (Normal) UA - PH 6 (Abnormal) UA - BLOOD Negative (Normal) UA - SPECIFIC GRAVITY 1.010 (Normal) UA - KETONES Negative mg/dL (Normal) UA - BILIRUBIN Negative (Normal) UA - GLUCOSE Negative (Normal) :50 Basic Metabolic Profile (BMP) Comments: [facility] [address] [place], [address] GAP 7 (Normal) Range: 5-15 CO2 33.0 [...] 100 mg/dL (Normal) Range: 70-110 :48 MAGNESIUM (93071) Comments: PATIENT NOT FASTINGPERFORMED BY: LabCoJFK Johnson Rehabilitation InstituteSwhuhu8308 [facility] [id number] Magnesium, Serum 1.6 mg/dL (Normal) Range: 1.6-2.3 :48 TSH (THYROID STIMULATING Comments: PATIENT NOT FASTINGPERFORMED BY: LabCo Kakntn4299 [facility] [id number] HORMONE) (63621) TSH 6.340 {uIU/mL} (Abnormal) Range: 0.450-4.500 :48 URIC ACID BLOOD (67065) Comments: PATIENT NOT FASTINGPERFORMED BY: LabCoAlbuquerque Indian Dental ClinicRneccs0686 [facility] [id number] Uric Acid, Serum 6.1 mg/dL (Normal) Range: 2.5-7.1 Comments: Therapeutic target for gout patients: <6.0 :09 Blood Glucose , Office (69903) Blood Glucose , Office 116 (Normal) :09 HgA1C , Office (79050) HgA1C , Office 6.7 % (Normal) Range: 4.6 - 7.1 :19 Basic Metabolic Profile (BMP) Comments: Order Date: 03/12/16OV Order #: [id number] Valley Hospital [address] [place], [address] GAP 7 (Normal) Range: 5-15 CO2 29.0 [...] 7-18 GLU 107 mg/dL (Normal) Range: 70-110 39-Poe-434073:19 T4 Total, Thyroxin Comments: Order Date: 03/12/16 Order #: [id number] [facility] [address] [place], [place], [address] T4 THYROXIN 9.4 ug/dL (Normal) Range: 4.8-13.9 :19 Thyroid Stim Hormone (TSH) Comments: Order Date: 03/12/16 Order #: [id number] [facility] [address] [place], [place], [address] TSH 5.44 {uIU/mL} (Abnormal) Range: 0.358-3.74 :49 Aerobic Bacterial Culture Comments: PATIENT NOT FASTINGPERFORMED BY: [facility] Qqcpns9875 [facility] [id number] Information: RT AXILLA Result 1 MRSA (Abnormal) [...] (Normal) Comments: PATIENT NOT FASTINGPERFORMED BY: [facility] [address]fevz[address] [place] [id number] Information: NASAL 5:49 Culture 84-Smw-013399:20 Basic Metabolic Profile (BMP) Comments: [facility] [address] [place], [place], [address] GAP 7 (Normal) Range: 5-15 CO2 29.0 [...] A.D.A. criteria. :02 Blood Glucose , Office (64653) Blood Glucose , Office 137 (Normal) :54 Urine Drug Screen (Office - WNL (Normal) Comments: pos for oxy, all else neg Urine Drug Screen 6 Panel) Comments: All negative except Oxy (15608) :52 HgA1C , Office (11127) Comments: 7.3 HgA1C , Office 7.3 % (Abnormal) Range: 4.6 - 7.1 9-Kqu-853971:43 Basic Metabolic Profile (BMP) Comments: DR URBINA ORDERED BMPDR MALCOLM ORDERED LIVER LIPIDWMiami Valley Hospital [address] [place], [address] GAP 3 (Abnormal) Range: 5-15 CO2 33.0 mmol/L (Abnormal) Range: 21.0-32.0 CL 102 mmol/L (Normal) Range: 98-107 K 3.4 mmol/L (Abnormal) Range: 3.5-5.1 Comments: ADDENDA: Denisse at [facility] aware of potassium level NA 138 [...] 7-18 GLU 101 mg/dL (Normal) Range: 70-110 1-Azg-076669:43 Lipid Profile Comments: DR URBINA ORDERED BMPDR MOODISPAW ORDERED LIVER LIPIDSelect [facility] [address] [place], [address] VLDL 26 mg/dL (Normal) Range: [...] 200-240 mg/dL Borderline >240 mg/dL High Risk 9-Mkw-165450:43 Liver Profile Comments: DR URBINA ORDERED BMPDR MOODISPAW ORDERED LIVER LIPIDSelect Medical [facility]ty [facility] [address] [place], [address] D BILI 0.14 mg/dL (Normal) Range: 0.00-0.30 T BILI 0.40 mg/dL (Normal) Range: 0.20-1.00 ALT 16 U/L (Normal) Range: 12-78 ALK P 112 U/L (Normal) Range: 50-136 AST 19 U/L (Normal) Range: 15-37 GLOB 3.9 g/dL (Abnormal) Range: 2.3-3.5 ALB 3.0 g/dL (Abnormal) Range: 3.4-5.0 T PROT 6.9 g/dL (Normal) Range: 6.4-8.2 :02 Blood Glucose , Office (47331) Blood Glucose , Office 160 (Normal) :37 HgA1C , Office (06098) Comments: 7.2 HgA1C , Office 7.2 % (Abnormal) Range: 4.6 - 7.1 :24 MRSA Culture (10878) Comments: [facility] [address] [place], [place], [address] MRSA RESULT Negative (Normal) :59 Metabolic Panel, Basic Comments: send to Dr.Masroor Urbina; PATIENT NOT FASTINGPERFORMED BY: LabCoJFK Johnson Rehabilitation InstituteGnsesh2638 [facility] [id number] Information: [id number] (76665) Calcium, Serum 10.7 mg/dL (Abnormal) Range: 8.7-10.3 [...] Glucose, Serum 182 mg/dL (Abnormal) Range: 65-99 8-Cfd-436608:09 MRSA Culture (83215) Comments: [facility] [address] [place], [address] MRSA RESULT POSITIVE (Abnormal) :39 Lipid Profile Comments: [facility] [address] [place], [address] VLDL 23 mg/dL (Normal) Range: 5-40 LDL [...] mg/dL High Risk :39 Liver Profile Comments: [facility] [address] [place], [address] ; non-emergent and handled by [...] Range: 6.4-8.2 :39 T4 Total, Thyroxin Comments: [place] [address] [place], [address] T4 THYROXIN 10.9 ug/dL (Normal) Range: 4.8-13.9 :39 Thyroid Stim Hormone (TSH) Comments: [facility] [address] [place], [address] TSH 3.63 {uIU/mL} (Normal) Range: 0.358-3.74 3-Xxt-387190:13 LIPID PANEL (71517) Comments: PATIENT WAS FASTINGPERFORMED BY: [facility]6370 [facility] [id number] LDL/HDL Ratio 1.2 {ratio_units} (Normal) Range: 0.0-3.2 [...] Cholesterol, Total 160 mg/dL (Normal) Range: 100-199 9-Hpl-302777:13 CBC W/AUTO DIFF WBC Comments: PATIENT WAS FASTINGPERFORMED BY: [facility]6370 [facility] [id number] Information: [id number] (08740) Immature Grans (Abs) 0.0 {x10E3/uL} (Normal) Range: [...] 3.77-5.28 WBC 4.5 {x10E3/uL} (Normal) Range: 3.4-10.8 3-Ehr-371737:13 METABOLIC PANEL, COMPREHENSIVE Comments: PATIENT WAS FASTINGPERFORMED BY: LabCoJFK Johnson Rehabilitation InstituteEuasmk2246 [facility] [id number] (17230) ALT (SGPT) 8 [iU]/L (Normal) Range: 0-32 [...] Glucose, Serum 109 mg/dL (Abnormal) Range: 65-99 8-Sby-237318:15 Basic Metabolic Profile (BMP) Comments: [facility] [address] [place], [place], [address] GAP 7 (Normal) Range: 5-15 CO2 30.0 [...] 200 mg/dLsuggests DIABETES MELLITUS per A.D.A. criteria. 3-Zwi-228271:15 CBC W/Diff, Automated Comments: [facility] [address] [place], [place], [address] Absolute Lymph 0.95 {X10_3/ul} (Normal) Range: 0.83-4.51 [...] K/mm3 (Normal) Range: 4.4-11.0 :31 LIPID PANEL (19003) Comments: PATIENT WAS FASTINGPERFORMED BY: LabCoJFK Johnson Rehabilitation InstituteZpdavs2886 [facility] [id number]; non-emergent till apt LDL/HDL Ratio 1.6 {ratio_units} [...] Cholesterol, Total 219 mg/dL (Abnormal) Range: 100-199 60-Jei-401572:31 CBC with auto diff Comments: PATIENT WAS FASTINGPERFORMED BY: LabCoJFK Johnson Rehabilitation InstituteTedvms7180 [facility] [id number] Information: [id number] (53865) Immature Grans (Abs) 0.0 {x10E3/uL} (Normal) Range: [...] CREATININE RATIO Comments: PATIENT WAS FASTINGPERFORMED BY: LabCoJFK Johnson Rehabilitation InstitutePnayje4939 [facility] [id number] (73131) AND (29414) Microalb/Creat Ratio 93.7 {mg/g_creat} (Abnormal) Range: 0.0-30.0 Microalbumin, Urine 196.4 ug/mL (Abnormal) Range: 0.0-17.0 Creatinine, Urine 209.7 mg/dL (Normal) Range: 15.0-278.0 :31 METABOLIC PANEL, COMPREHENSIVE Comments: PATIENT WAS FASTINGPERFORMED BY: Bizo6370 [facility] [id number] ([id number]) ALT (SGPT) 20 [iU]/L (Normal) Range: 0-32 [...] Glucose, Serum 120 mg/dL (Abnormal) Range: 65-99 95-Avy-260278:31 Hemoglobin Glyclated (HGB A1C) Comments: PATIENT WAS FASTINGPERFORMED BY: mobiManage70 [facility] [id number] (10373) Hemoglobin A1c 7.6 % (Abnormal) Range: 4.8-5.6 Comments: . Pre-diabetes: 5.7 - 6.4 Diabetes: >6.4 Glycemic control for adults with diabetes: <7.0 10-Vqq-655233:30 Urinalysis, Complete Comments: Order Date: 07/18/15How was Urine Obtained? CLEAN [facility] [address] [place], [place], [address] MUCUS, URINE 0 SEEN {/hpf} (Normal) BACTERIA [...] (Abnormal) CLARITY Clear (Normal) COLOR Yellow (Normal) 28-Kie-555245:43 CBC W/Diff, Automated Comments: [facility] [address] [place], [place], [address] PATH REV May foll (Normal) SMEAR COMMENT [...] 4.2-5.4 WBC 15.1 K/mm3 (Abnormal) Range: 4.4-11.0 14-Ddx-445759:43 Comprehensive Metabolic Profil Comments: [facility] [address] [place], [place], [address] GAP 8 (Normal) Range: 5-15 CO2 33.0 [...] Comments: To be drawn 6H after initial specimenWMiami Valley Hospital [address] [place], [place], [address] LACTIC ACID 1.7 mmol/L (Normal) Range: 0.4-2.0 :43 Magnesium Comments: [facility] [address] [place], [place], [address](638) MG 1.3 mg/dL (Abnormal) Range: 1.8-2.4 :43 Partial Thromboplast Time Comments: [facility] [address] [place], [place], [phone] PTT 31.4 s (Normal) Range: 24.1-36.2 :43 Phosphorus Comments: [facility] [address] [place], [address] PHOS 1.0 mg/dL (Abnormal) Range: 2.5-4.9 Comments: Critical Result(s) Called at: 17:06:16 07/18/2015 by:Stacey ibarra rn 90-Ehy-180961:43 Prothrombin Time w/INR Comments: [facility] [address] [place], [place], [address](767) INR 0.9 (Normal) PROTIME 12.8 s (Normal) [...] with abnormal findings in adult : Reviewed Writing Tutor Letter Indication: Encounter for annual general medical [...] - Strool Based DNA Test, CRC SCREEN (71432)Indication: Encounter for screening for malignant neoplasm of colon (Renamed from Special screening for malignant neoplasms, colon) On: 41-Omr-791694:05 Request FECAL OCCULT- Tubes sent home (28908)Indication: Encounter for screening for malignant neoplasm of colon (Renamed from Special screening for malignant neoplasms, colon) On: 02-Ulc-124745:09 Request Lipid Panel (23134)Indication: Diabetes mellitus type 2, insulin dependent On: 39-Qpz-464126:08 Request Comments: around January Metabolic Panel, Comprehensive (45803)Indication: Diabetes mellitus type 2, insulin dependent On: 51-Gjf-456772:08 Request Comments: around January CBC, Platelets & Auto Diff (28308)Indication: Diabetes mellitus type 2, insulin dependent On: 92-Vni-801458:08 Request Comments: around January TSH (34279)Indication: Diabetes mellitus type 2, insulin dependent On: 15-Los-485927:08 Request Comments: around January Rapid Flu (08515 x 2)Indication: Unspecified Diagnosis On: 47-Hbo-13832:33 Request CBC & PLATELETS (AUTO) (39864)Indication: Abdominal pain On: 9-Axf-032926:57 Request CULTURE, NOSE (57874)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 On: :31 Request Comments: check for MRSA MRSA Culture (57418)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 On: :23 Request Comments: rt axila HgA1C , Office (16194)Indication: Diabetes mellitus type 2, insulin dependent On: 94-Wbw-516881:21 Request Urinalysis, Office (97830)Indication: History of MRSA infection On: 29-Gkz-473646:42 Request Hemoglobin Glyclated (HGB A1C) (96087)Indication: Diabetes mellitus type 2, uncontrolled On: 71-Lnd-009706:46 Request MICROALBUMIN: CREATININE RATIO (67154) AND (71108)Indication: Hypertensive heart disease without heart failure On: 30-Kjv-269834:46 Request Planned Encounters Medical; Overnight Pulse Ox Placement - On: 08-Jul-2018 13:00 Comprehensive Internal Medicine Visit, Nurse Medical; 3 Month FU - On: 28-Jul-2018 13:30 Comprehensive Internal Medicine Elsa Chopra CNP, CNP, Mary E Planned Procedures Overnight Pulse OX (24680)By: On: 30-Jun-2018 Intent Lee Ann Schafer DO SPIROMETRY PERFORMED (87670)By: On: 25-Jun-2018 Intent Visit, Nurse SPIROMETRY PERFORMED (86081)By: On: 25-Jun-2018 Intent Visit, Nurse SIX MINUTE WALK TEST (16907)By: On: 25-Jun-2018 Intent Visit, Nurse Flu Vaccine (Quadrivalent) 58741Dv: On: 20-May-2018 Intent Karly Chandra DEXA SCAN AXIAL SKELETON (64799)By: On: 18-Dec-2017 Intent Elsa Chopra CNP, CNP, Mary E SCREENING DIGITAL TOMOSYNTHESIS OF On: 18-Dec-2017 Intent BREAST (05808)By: Nav MCKINLEY OneliaMarly Chopra CNP [place] Flu Vaccine (Quadrivalent) 11220Sf: On: 11-Jun-2017 Intent Nav MCKINLEYElsa Nav MCKINLEY [place] Comments: InfluenzaLot #[id number]-L dltd, IMDose prefilled syringeVIS and ABN signedgiven by:GENARO blackwood PHYSICAL THERAPY TREATMENT On: 11-Dec-2016 Intent (86889)By: Adelita Doshi LPN PHYSICAL THERAPY EVALUATION On: 11-Dec-2016 Intent (62867)By: Elsa Chopra CNP, CNP [place] Toradol Injection, 30 mg On: 10-Dec-2016 Intent ([id number])By: Elsa Chopra CNP, CNP [place] Radiology - Hip - RightBy: Nav On: 10-Dec-2016 Intent ARLENElsa Nav MCKINLEY [place] Aerosol Treatment (26964)By: Tico On: 16-Oct-2016 Intent Adelita LAM Flu Vaccine (Quadrivalent) [id number]: On: 11-Jul-2016 Intent Nav MCKINLEY OneliaMarly Chopra CNP [place] Comments: FLUlot: [id number]:01/16site:Lt deltoidroute:IMdose:.5mlDEMICK, [place] Ultrasound - Abdomen CompleteBy: On: 03-Jul-2016 Intent Nav MCKINLEY OneliaMarly Chopra CNP [place] Radiology - KUBBy: Elsa Chopra CNP On: 03-Jul-2016 Intent Elsa العلي CNP DRAIN/INJECT SMALL JOINT OR BURSA On: 18-May-2016 Intent ()By: Elsa Chopra CNP Comments: to left wrist joint 1/2 cc kenalog, 1/2 cc marcaine. Kenalog lot [id number] exp Marcain lot [id number] ex Elsa MCKINLEY MAMMOGRAM, SCREENING, BOTH BREAST On: 11-May-2016 Intent (59796)By: Elsa Chopra CNP, CNP, Mary E Radiology [...] mellitus without complication) : DISCONTINUED - URINALYSIS (96564) Indication: Diabetes mellitus type II, controlled, with no complications (Renamed from Controlled type 2 diabetes mellitus without complication) CKD (chronic kidney disease), stage III : DISCONTINUED - MICROALBUMIN: CREATININE RATIO (84453) AND (87682) Indication: CKD (chronic kidney disease), stage III Diabetes mellitus type II, controlled, with no complications (Renamed from Controlled type 2 diabetes mellitus without complication) : DISCONTINUED - CBC, PLATELETS & AUT DIFF (87777) Indication: Diabetes mellitus type II, controlled, with no complications (Renamed from Controlled type 2 diabetes mellitus without complication) Diabetes mellitus type II, controlled, with no complications (Renamed from Controlled type 2 diabetes mellitus without complication) : DISCONTINUED - METABOLIC PANEL, COMPREHENSIVE (37925) Indication: Diabetes mellitus type II, controlled, with no complications (Renamed from Controlled type 2 diabetes mellitus without complication) Diabetes mellitus type II, controlled, with no complications (Renamed from Controlled type 2 diabetes mellitus without complication) : DISCONTINUED - TSH (69772) Indication: Diabetes mellitus type II, controlled, with [...] dependent : DISCONTINUED - METABOLIC PANEL, BASIC (83321) Indication: Diabetes mellitus type 2, insulin dependent [...] patient does not have durable power of tax attorney or living will. The patient has noticed getting bored, poor spirits most of time and lack of energy. Other providers contributing to the lyndsey bolton's care are mental retardation nurse () and urologist (). Note for Annual [...] and is sleeping poorly. Patient has been [place]: 18-Dec-2017 14:15 pliant with instructions. Current [...] and is sleeping poorly. Patient has been [place]: 18-Sep-2017 13:50 pliant with instructions. Current [...] - Reason for ER visit: note: (surgery [facility]. ). The patient feels well with minor [...] MRSA. She has had pre-op testing at [facility] on 10-14-2015, for Lumbar microdecompression for 10-24-[address] Cushion Stuffer Dr. Dahl for papers to be signed [...] 19-Jul-2015 22:21 - sharp pain- went to [facility] ER). Current medication use: no side [...] surgeon- - recently went to er at [facility] on jul 14 - she was having lower abd groin pain - and is feeling better - doesnt remeber why fell- doesnt rember di erciay - fell on steps and fell backwards- [...]
--- OUTSIDE RECORDS SUMMARY | 2018-09-25 14:30 | XMS RPT_ITS | Continuity of Care Document ---
:1950 Author Organization [facility] Address [facility] [address] [place] [address] Phone Care Team Providers Name Role Phone Nav ARLENElsa Unavailable Malcolm STANLEY, Casey Florian Unavailable Linden DO , Dr. Aaron Diaz Unavailable John JosephAnnalisa lynne Unavailable Dr. Abimael Ag Unavailable Kirby STANLEY, Jared Galeano Unavailable Pascale Boston Unavailable Adelita Doshi LPN Unavailable Unavailable Karly Chandra Unavailable Unavailable Gravius, Yasmeen Unavailable Unavailable Fabby Louis Unavailable Unavailable Trina Sorenson Unavailable Unavailable Unavailable [...] 585.3) Comments: follows with Dr. Munguia in [place], seen for sarcoidosis currently, stableGFR 42 Status: [...] on wean of steroid Scale 201-250. 5 onbfa010-244 8 uamuj161-498 10 jfcku002-768 12 units>401 15 unitsad ding metformin not [...] Status: Active Hypothyroid (E03.9, 244.9) Status: Active Insomnia (G47.00, 780.52) Comments: try [...] given in L arm subcutaneously paitent tolerated wellLOT#[id number]#2020 NOV 06 Status: Active Postmenopausal (Renamed from Postmenopausal status) (Z78.0, V49.81) Status: Active Pregnancies () Comments: 1. 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) Comments: Sees Ciara at [facility] for sarcoid in bone marrow [...] days Quantity: 100 {Strip} Refills: 3 Ordered:09-Jan-2016 Gautam DO, Madeline A Start : 09-Jan-2016 Active Allopurinol 100 MG Oral Tablet 1 (one) Tablet Tablet daily for 30 days Quantity: 30 {Tablet} Refills: 3 Ordered:11-May-2016 Slarb Adelita LAM Start : 08-May-2016 Active AmLODIPine Besylate 5 MG Oral Tablet 1 (one) Tablet bid for 30 days Quantity: 60 {Tablet} Refills: 3 Ordered:06-Jun-2018 Nav MCKINLEY, Elsa Reyes CNP, Elsa Luke Start : 06-Jun-2018 Active ASPIRIN LOW DOSE, 81MG (Oral Tablet Delayed Release) 1 (one) Tablet DR Tablet DR daily for 30 days Quantity: 30 {Tablet} Refills: 0 Ordered:25-Jul-2015, Madeline A Start : 18-Jul-2015 Active Atorvastatin Calcium 20 MG Oral Tablet 1 (one) Tablet Tablet daily for 0 days Quantity: 90 {Tablet} Refills: 3 Ordered:04-Sep-2017 Nav MCKINLEY, Elsa Reyes CNP, Elsa Luke Start : 04-Sep-2017 Active Calcitriol 0.25 MCG Oral Capsule 1 (one) Capsule daily for 0 days Quantity: 30 {Capsule} Refills: 6 Ordered:12-May-2018 Nav MCKINLEY, Elsa Reyes [employer] GAR[employer] MECHANIC, Elsa Luke Start : 12-May-2018 Active Citalopram Hydrobromide 40 MG Oral Tablet 1/2 tab tablet tablet daily for 30 days Quantity: 30 {Tablet} Refills: 3 Ordered:02-May-2018 Nav MCKINLEY, Elsa Reyes CNP, Elsa Luke Start : 02-May-2018 Active Cyclobenzaprine HCl 10 MG Oral Tablet 1 (one) Tablet as needed for 0 days Quantity: 30 {Tablet} Refills: 0 Ordered:11-Jun-2017 Nav MCKINLEY, Elsa Reyes [facility], Elsa Luke Start : 11-Jun-2017 Active Comments:Medication taken as needed. Pain management Furosemide 40 MG Oral Tablet 1/2 tab tablet daily for 30 days Quantity: 15 {Tablet} Refills: 0 Ordered:23-May-2018 Nav MCKINLEY, Elsa Reyes CNP, Elsa Luke Start : 23-May-2018 Active IRON, 325 (65 Fe)MG (Oral Tablet) 1 (one) Tablet Tablet daily for 30 days Quantity: 30 {Tablet} Refills: 0 Ordered:25-Jul-2015, Madeline A Start : 18-Jul-2015 Active Klor-Con 10 10 MEQ Oral Tablet Extended Release 1 (one) Tablet ER bid for 60 days Quantity: 60 {Tablet} Refills: 3 Ordered:14-Apr-2018 Remington Oviedo Start : 14-Apr-2018 Active LORazepam 0.5 MG Oral Tablet 1 (one) Tablet bid, prn only for 0 days Quantity: 60 {Tablet} Refills: 0 Ordered:14-Apr-2018 Nav ARLEN Elsa Leblancmickey MCKINLEY Elsa Luke Start : 14-Apr-2018 Active Comments:Oarrs rundx F41.9#60thirty days Melatonin 1 MG Oral Tablet 3 (three) Tablet qhs for 0 days Quantity: 60 {Tablet} Refills: 0 Ordered:12-Mar-2016 Nav MCKINLEY Elsa RODRIGUEZelba MCKINLEY Elsa Luke Start : 12-Mar-2016 Active MetFORMIN HCl ER 500 MG Oral Tablet Extended Release 24 Hour 2 (two) Tablet bid for 30 days Quantity: 120 {Tablet} Refills: 6 Ordered:27-May-2018 Nav ARLEN Elsa RODRIGUEZelba MCKINLEY Elsa Luke Start : 27-May-2018 Active Omeprazole 20 MG Oral Tablet Delayed Release 1 (one) Tablet DR Tablet DR daily for 90 days Quantity: 90 {QS} Refills: 3 Ordered:08-Jan-2018 Nav ARLEN Elsa Leblancmickey MCKINLEY Elsa Luke Start : 08-Jan-2018 Active Oxycodone-Acetaminophen 7.5-325 MG Oral Tablet 1 (one) Tablet Tablet bid as needed for 0 days Quantity: 60 {Tablet} Refills: 0 Ordered:03-Jul-2016 Nav ARLEN Elsa Leblancmickey MCKINLEY Elsa Luke Start : 03-Jul-2016 Active Comments:Medication taken as needed. Promethazine HCl 25 MG Oral Tablet 1 (one) Tablet q 8hrs as needed for 30 days Quantity: 30 {Tablet} Refills: 1 Ordered:27-May-2018 Nav ARLEN Elsa Leblancmickey MCKINLEY Elsa Luke Start : 27-May-2018 Active Comments:Medication taken as needed. Synthroid 50 MCG Oral Tablet 1 (one) Tablet daily except Sundays and Tuesdays for 0 days Quantity: 30 {Tablet} Refills: 3 Ordered:27-May-2018 Nav ARLEN Elsa Leblancmickey MCKINLEY Elsa Luke Start : 27-May-2018 Active Comments:generic only UNISOM, 25MG (Oral Tablet) 2 (two) Tablet Tablet q hs for 30 days Quantity: 60 {Tablet} Refills: 0 Ordered:25-Jul-2015 Madeline Mickey Start : 18-Jul-2015 Active VITAMIN D3, 02012PRGF (Oral Capsule) 1 (one) Capsule Capsule once a month for 30 days Quantity: 1 {Capsule} Refills: 0 Ordered:25-Jul-2015 Madeline A Start : 18-Jul-2015 Active AMIODARONE HCL, 200MG (Oral Tablet) 1 (one) Tablet Tablet daily for 30 days Quantity: 30 {Tablet} Refills: 0 Ordered:20-Jan-2016 Tatianaabelardomickey MCKINLEY, Elsa Leblancmickey MCKINLEY, Elsa Luke Start : 20-Jan-2016 End : 19-Feb-2016 Inactive Comments:per [employer] Augmentin 875-125 MG Oral Tablet 1 (one) Tablet bid for 14 days Quantity: 28 {Tablet} Refills: 0 Ordered:16-Oct-2016 Tatianacurt ARLEN Elsa Leblancmickey MCKINLEY Elsa Luke Start : 16-Oct-2016 End : 30-Oct-2016 Inactive Bactrim DS 800-160 MG Oral Tablet 1 (one) Tablet bid for 10 days Quantity: 20 {QS} Refills: 0 Ordered:12-Mar-2016 Nav ARLEN Elsa Reyes [employer] G[employer] MECH[employer]IC, Elsa Luke Start : 12-Mar-2016 End : [...] Quantity: 30 {Tablet} Refills: 0 Ordered:24-Oct-2015 Madeline Start : 22-Sep-2015 End : 22-Oct-2015 Inactive [...] Quantity: 60 {Tablet} Refills: 0 Ordered:19-Aug-2015 Madeline MOY A Start : 18-Jul-2015 End : 17-Aug-2015 Inactive PEN NEEDLES /16, 31G X 5 MM (Miscellaneous) 1 (one) Misc q am for 30 days Quantity: 30 {Unspecified} Refills: 0 Ordered:28-Nov-2015 Adelita Doshi LPN Start : 28-Nov-2015 End : 28-Dec-2015 Inactive PIOGLITAZONE HCL, 15MG (Oral Tablet) 1 (one) Tablet Tablet daily for 30 days Quantity: 30 {Tablet} Refills: 0 Ordered:19-Aug-2015 Madeline Arevalo Start : 18-Jul-2015 End : 17-Aug-2015 Inactive PREDNISONE, 20MG (Oral Tablet) 1/2 Tablet Tablet QOD for 30 days Quantity: 15 {Tablet} Refills: 0 Ordered:21-Oct-2015 Elsa Chopra CNP, CNP, Mary E Start : 21-Oct-2015 End : 20-Nov-2015 Inactive [...] Refills: 0 Ordered:18-Jan-2018 Elsa Chopra CNP, CNP Onelia Start : 18-Dec-2017 End : 17-Jan-2018 Inactive [...] days Quantity: 1 {Vial} Refills: 6 Ordered:07-Feb-2016 Elsa Chopra CNP, CNP Onelia Start : 03-Oct-2015 End : 07-Feb-2016 Discontinued LEVEMIR, 100UNIT/ML (Subcutaneous Solution) 20 Solution units each morning for 30 days Quantity: 1 {Vial} Refills: 6 Ordered:20-Jan-2016 Adelita Doshi LPN Start : 21-Oct-2015 End : 20-Jan-2016 Discontinued MACROBID, 100MG (Oral Capsule) q12hrs (100 MG) End : 05-Aug-2015 Discontinued Comments:[facility] MUPIROCIN, 2% (External Ointment) 1 (one) [...] : 05-Aug-2015 Discontinued Comments:1,250mg IV q24hrs x 62pzil1,500mg IV q24hrs #14 Allergies and Adverse Reactions Name Dates Details Compazine *ANTIPSYCHOTICS/ANTIMANIC AGENTS* (Allergy) Status: Active Past Medical History Name Dates Details Abdominal pain (R10.9, 789.00) Comments: Started with RLQ pain about a week ago Status: Inactive as of 27-May-2018 Abnormal chest xray (R93.8, 793.2) Status: Inactive as of 26-Oct-2015 Abnormal [...] Comments: was seeing Dr. Munguia's partner in [place] Dr. Morel, gfr 43%, has proteinuria Status: [...] Visit Report Result: Comments: See Note; NOTES: [facility] [place] [address] OFFICE VISIT Date of Service: 02/17/18 MR#: [id number] Acct: [id number] Name: SHREYAS KATHLEEN Rep #: [id number] : 1950 Provider: Casey Fowler MD Age/Sex: 67/F [place] [facility] [place] Status: Signed HPI HPI Details: SHREYAS KATHLEEN, is a 67 F who presents to the office today for for outpatien t cardiovascular follow-up of her history of underlying CAD, non-ST segment elevation [place], paroxysmal atrial fibrillation, superimposed upon a history [...] Visit Reasons: 6 M FU Allergies prochlorperazine edisy late [From Compazine] Allergy (Verified 02/17/18 14:51) [...] PFSH Medical History Atherosclerotic heart disease of [place] coronary artery without angina pectoris (Chronic) History [...] stenosis Assessment AND Plan 1. Atherosclerosis of [place] coronary artery of [place] heart without angina pectoris I25.10 Mild Plan [...] be scheduled for an outpatient visit in [facility] 9 months unless needed sooner. Thank you for allowing me to participate in the care of your patient. Please don't hesitate to call if any issues arise. This note was generated using a KidZui system and there may be incorrect words, spelling or punctuation that were not noted when reviewing the office note prior to saving. Follow Up 9 Months Coding Level of Care Code Off vis,est,leathae l 4 Diagnoses Atherosclerosis of [place] coronary artery of [place] heart without angina pectoris I25.10 [place] vs. transplanted heart: [place] heart Paroxysmal atrial fibrillation I48.0 Hyperlipidemia, u nspecified hyperlipidemia type E78.5 Hyperlipidemia type: unspecified Essential hypertension I10 Hypertension type: essential hypertension Long-term use of high-risk medication Z79.899 Coding Level of Care Code Off vis,est,level 4 Diagnoses Atherosclerosis of [place] coronary artery of [place] heart without angina pectoris I25.10 [place] vs. transplanted heart: [place] heart Paroxysmal atrial fibrillat ion I48.0 Hyperlipidemia, unspecified hyperlipidemia type E78.5 Hyperlipidemia type: unspecified Essential hypertension I10 Hypertension type: essential hypertension Long-term use of high-risk medicatio n Z79.899 02/17/18 1530 <Electronically signed by Casey Fowler MD> Date Casey Fowler MD Cosigner Signature: Date _ (if applicable) CC: Elsa Chopra NP 14-Feb-2018 SCREENING MAMM (CAD), BILAT Result: Comments: See Note; NOTES: [facility] Imaging Services [address] [place] [address] SCREENING MAMM (CAD), BILAT MR#: [id number] Acct: [id number] Name: SHREYAS KATHLEEN Rep #: [id number] : 1950 F 67 From: Elias Finn MD PCP: Elsa Chopra NP Status: REG CLI Study: SCREENING MAMM (CAD), BILAT Date of Exam: 02/14/18 Exam# [id number] Ordering Dr: Elsa Chopra MAMMO GRAPHY - [...] these results will be [facility] by the facility within 30 days. Approximately 10% of breast cancers are not detected by mammography. A normal mammogram should not delay biopsy of a clinically suspicious abnormality. [id number] Elect ronically Signed: Elias Finn MD at 8:30 EDT Tel [phone], Service support , CC: Elsa Chopra NP Roller Mechanic: Signed 21-Jan-2018 Dexa Bone Density Study Result: Comments: See Note; NOTES: [facility] Imaging Services [address] [place] [address] Dexa Bone Density Study MR#: [id number] Acct: [id number] Name: SHREYAS KATHLEEN Rep #: [id number] : 1950 F 67 From: Elias Finn MD PCP: Elsa Chopra NP Status: REG CLI Study: Dexa Bone Density Study Date of Exam: 01/21/18 Exam# [id number] Ordering Dr: Elsa Chopra STUDY: DUAL E [...] Elias Finn MD at 15:36 EDT Tel [phone], Service support , CC: Elsa Chopra NP Roller Mechanic: Signed 10-Dec-2016 Hip 2-3 Views with Pelvis Result: Comments: See Note; NOTES: [facility] Imaging Services [address] [facility] [place] [address] Verdana 4d Hip 2-3 Views with Pelvis MR#: [id number] Acct: [id number] Name: SHREYAS KATHLEEN Rep #: [id number] : 1950 F 66 From: Herve Jimenez MD PCP: Elsa Chopra Status: REG CLI Study: Hip 2-3 Views with Pelvis Date of Exam: 12/10/16 Exam# [id number] Ordering Dr: Elsa Chopra STUDY : X-RAY [...] FACR at 11:31 EDT , Service support [phone], CC: Elsa Chopra Roller Mechanic: Signed 05-Jul-2016 Abdomen Complete Result: Comments: See Note; NOTES: [facility] Imaging Services [address] [place] [address] Verdana 4d Abdomen Complete MR#: [id number] Acct: [id number] Name: SHREYAS KATHLEEN Keira Rep #: [id number] : 1950 F 66 From: Elias Finn MD PCP: Elsa Chopra Status: REG CLI Study: Abdomen Complete Date of Exam: 07/05/16 Exam# [id number] Ordering Dr: Elsa Chopra STUDY: ABDOMINAL ULTRASOUND [...] Elias Finn MD at 9:35 EDT Tel [phone], Service support [phone], CC: Elsa Chopra Roller Mechanic: Signed 05-Jul-2016 Abdomen Single View Result: Comments: See Note; NOTES: [facility] Imaging Services [address] [place] [address] Nidiasusi 4d Abdomen Single View MR#: [id number] Acct: [id number] Name: SHREYAS KATHLEEN Rep #: [id number] : 1950 F 66 From: Elias Finn MD PCP: Elsa Chopra Status: REG CLI Study: Abdomen Single View Date of Exam: 07/05/16 Exam# [id number] Ordering Dr: Elsa Chopra STUDY: X-RA Y [...] of the L1 vertebrae. ORDER # : [id number] RAD/Abdomen Single View IMPRESSION: Moderate amount of fecal material is seen in the colon. Electronically Signed: Elias Finn MD at 10:34 EDT Tel [phone], Service sup port [phone], CC: Elsa Chopra Roller Mechanic: Signed 18-May-2016 Bilat Scrn Digital AND CAD Result: Comments: See Note; NOTES: [facility] Imaging Services [address] [place] [address] Verdana 4d Bilat Scrn Digital AND CAD MR#: [id number] Acct: [id number] Name: JACINTO KATHLEEN Rep #: [id number] : 1950 F 65 From: Elias Finn MD PCP: Elsa Chopra Status: REG CLI Study: Bilat Scrn Digital AND CAD Date of Exam: 05/18/16 Exam# [id number] Ordering Dr: Elsa Chopra MAMMOGRAPHY - BILATERAL [...] biopsy of a clinically suspicious abnor mality. [id number] Electronically Signed: Elias Finn MD at 12:53 EDT Tel [phone], Service support [phone], CC: Elsa Chopra Roller Mechanic: Signed 14-Feb-2016 Shoulder min 2 Views Result: Comments: See Note; NOTES: [facility] Imaging Services [address] [place] [address] Verdavinayak 4d Shoulder min 2 Views MR#: [id number] Acct: [id number] Name: SHREYAS KATHLEEN Rep #: [id number] : 1950 F 65 From: Herve Jimenez MD PCP: Madeline Florez DO Status: REG CLI Study: Shoulder min 2 Views Date of Exam: 02/14/16 Exam# [id number] Ordering Dr: Pascale Boston DO STUDY: X-RAY [...] FACR at 14:50 EDT , Service support [phone], Fax RAD/Shoulder min 2 Views IMPRESSION: Bilateral of the acromioclavicular joint, otherwise normal x-ray examination of the shoulder. Electronically Signed: Herve Jimenez MD, FACR at 14:50 EDT , Service support [phone], CC: Pascale Boston DO; Madeline Florez DO Roller Mechanic: Signed 21-Oct-2015 Spirometry (79916) Comments: mod restriction Result: 19-Sep-2015 Chest PA and Lateral Result: Comments: See Note; NOTES: [facility] Imaging Services [address] [place] [address] [place] [address] Verdana 4d Chest PA and Lateral MR#: [id number] Acct: [id number] Name: SHREYAS KATHLEEN Rep #: [id number] : 1950 F 65 From: Elias Finn MD PCP: Madeline Florez DO Status: REG CLI Study: Chest PA and Lateral Date of Exam: 09/19/15 Exam# [id number] Ordering Dr: Madeline Florez DO STUDY: X-RAY [...] Elias Finn MD at 13:58 EST Tel [phone], Service support [phone], RAD/Chest PA and Lateral IMPRESSION: Stable examination. No acute abnormality is seen. Electronically Doris d: Elias Finn MD at 13:58 EST Tel [phone], Service support [phone], CC: Madeline Florez DO Roller Mechanic: Signed 25-Aug-2015 Spine Lumbar (Routine) Result: Comments: See Note; NOTES: [facility] Imaging Services [address] [place] [address] Verdana 4d Spine Lumbar (Routine) MR#: [id number] Acct: [id number] Name: SHREYAS MAJOR Rep #: [id number] : 1950 F 65 From: Herve Jimenez MD PCP: Madeline Florez DO Status: REG CLI Study: Spine Lumbar (Routine) Date of Exam: 08/25/15 Exam# [id number] Ordering Dr: ELIZABETH DE LEON M.D. STUDY: [...] FACR at 17:43 EST , Service support [phone], CC: ELIZABETH DE LEON M.D.; Madeline Florez DO Roller Mechanic: Signed 25-Aug-2015 Spine Thoracic (Routine) Result: Comments: See Note; NOTES: [facility] Imaging Services [address] [place] [address] 4d Spine Thoracic (Routine) MR#: [id number] Acct: [id number] Name: SHREYAS SHARIF Rep #: [id number] : 1950 F 65 From: Herve Jimenez MD PCP: Madeline Florez DO Status: REG CLI Study: Spine Thoracic (Routine) Date of Exam: 08/25/15 Exam# [id number] Ordering Dr: ELIZABETH RUIZ M.D. STUDY: MRI [...] FACR at 17:45 EST , Service support [phone], CC: ELIZABETH DE LEON M.D.; Komal Florez DO Roller Mechanic: Signed 17-Aug-2015 Chest PA and Lateral Result: Comments: See Note; NOTES: [facility] Imaging Services [address] [place] [address] Verdana 4d Chest PA and Lateral MR#: [id number] Acct: [id number] Name: SHREYAS KATHLEEN Rep #: [id number] : 1950 F 65 From: Elias Finn MD PCP: Madeline Florez DO Status: REG CLI Study: Chest PA and Lateral Date of Exam: 08/17/15 Exam# [id number] Ordering Dr: Madeline Florez DO STUDY: X-RAY [...] Elias Finn MD at 11:09 EST Tel [phone], Service support [phone], Fax RAD/Chest PA and Lateral IMPRESSION: Residual changes persist in the right middle lobe and there has been some improvement. Further followup is recommended. Electr onically Signed: Elias Finn MD at 11:09 EST Tel [phone], Service support [phone], CC: Madeline Florez DO Roller Mechanic: Signed 12-Aug-2015 Discharge Instruction Result: Comments: See Note; NOTES: [facility] Medical Records Department [address] [place] [address] Discharge Instruction 08/10/15 1702 MR#: [id number] Acct: [id number] Name: SHREYAS KATHLEEN Rep #: [id number] : 1950 65 From: Denny Bone MD [...] problems, contact your doctor. Call [facility] ([phone]) or report to the closest Emergency Room. Call 911 if necessary. 08/12/15 1502 <Elect ronically signed by Denny Bone MD> Date Denny Bone MD Cosigner Signature (If Indicated): Date CC: Madeline Gautam MOY 12-Aug-2015 Emergency Department Summary Result: Comments: See Note; NOTES: [facility] Medical Records Department [address] [place] [address] Emergency Department Summary MR#: [id number] Acct: [id number] Name: SHREYAS KAHTLEEN Rep #: [id number] : 1950 65 From: Denyn Bone MD PCP: Madeline Florez DO Status: [...] the patient had blood cultures obtained at [facility] and they were called to Dr. [...] Ramirez C: Madeline Bonilla MD T: [facility] JOB: [id number] 08/12/15 1502 <Electronically signed by Denny Bone MD> Date Denny Bone MD Cosigner Signature (If Indicated): Date ___ CC: Madeline Florez DO; Katelyn Arenas MD Date Dictated: 08/10/151708 Date Transcribed: 08/10/151708 Roller Mechanic: Signed Social History Name Dates Details No Caffeine Use Status: Active No Drug Use Status: Active Non Drinker/No Alcohol Use Status: Active Tobacco use: Never smoker. Status: Active Smoking Status Name Dates Details Never smoker Vital Signs Date Test Result Details 48-Lab-550518:51 Comments: was tested for cateracts in sep [...] kg/m2 Body Surface Area Calculated 1.85 m2 84-Uei-462231:20 Temperature 97.8 f Comments: Method: Temporal Pulse [...] unknown, given order todayLast vision screen 2014 [place] Temperature 98.3 f Pulse 75 /min Comments: [...] kg/m2 Body Surface Area Calculated 1.97 m2 :34 BP Systolic 130 mm[Hg] Comments: Patient Position: Sitting BP Diastolic 80 mm[Hg] Comments: Patient Position: Sitting :03 Temperature 98 f Comments: Method: Temporal Pulse [...] Size: Large Results Date Description Value Details 60-Wun-57555: MICROALBUMIN: CREATININE RATIO Comments: Jun 19; PATIENT WAS FASTINGPERFORMED BY: ePod SolarRobert Wood Johnson [facility] RahwayHhfjhz2327 [facility] [id number] ([id number]) AND (88542) Alb/Creat Ratio 266.9 {mg/g_creat} (Abnormal) Range: 0.0-30.0 Albumin, Urine 168.7 ug/mL (Normal) Creatinine, Urine 63.2 mg/dL (Normal) :00 Metabolic Panel, Comprehensive Comments: Jun 19; PATIENT WAS FASTINGPERFORMED BY: LabCoRobert Wood Johnson [facility] RahwayAjvlrq0800 [facility] [id number] ([id number]) ALT (SGPT) 14 [iU]/L (Normal) Range: 0-32 [...] 8-27 Glucose 121 mg/dL (Abnormal) Range: 65-99 :00 HGB A1C (45392) Comments: June 19; PATIENT WAS FASTINGPERFORMED BY: [facility] [id number] Hemoglobin A1c 7.0 % (Abnormal) Range: 4.8-5.6 Comments: . Prediabetes: 5.7 - 6.4 Diabetes: >6.4 Glycemic control for adults with diabetes: <7.0 66-Oac-353060:33 ALKALINE PHOSPHATASE-ISOENZYM Comments: PATIENT NOT FASTINGPERFORMED BY: [facility] [id number] (14425) Intestinal Frac.: 0 % (Normal) Range: 0-18 Bone Fraction: 27 % (Normal) Range: 14-68 Liver Fraction: 73 % (Normal) Range: 18-85 Alkaline Phosphatase 89 [iU]/L (Normal) Range: 39-117 02-Quk-443609:33 CBC, Platelets & Auto Diff Comments: PATIENT NOT FASTINGPERFORMED BY: [facility] [id number] (90606) Immature Grans (Abs) 0.0 {x10E3/uL} (Normal) Range: [...] 3.77-5.28 WBC 5.9 {x10E3/uL} (Normal) Range: 3.4-10.8 37-Ofi-709105:22 HgA1C , Office (28252) Comments: 7.3 HgA1C , Office 7.3 % (Abnormal) Range: 4.6 - 7.1 :22 Blood Glucose , Office (28219) Blood Glucose , Office 173 (Normal) :40 Basic Metabolic Profile (BMP) Comments: SEND RESULTS OF BMP TO .[facility] Smmunfwmeg64[address] [facility] [place], [address] GAP 11 (Normal) Range: 5-15 CO2 27.0 [...] A.D.A. criteria.Please note revised GLUCOSE reference range punzmquop01/02/2018. :40 Liver Profile Comments: SEND RESULTS OF BMP TO .[facility] [address]fr[address] [place], [address] D BILI 0.09 mg/dL (Normal) Range: 0.00-0.30 T BILI 0.40 mg/dL (Normal) Range: 0.20-1.00 ALT 22 U/L (Normal) Range: 13-56 ALK P 103 U/L (Normal) Range: 45-117 AST 17 U/L (Normal) Range: 15-37 GLOB 4.0 g/dL (Normal) Range: 2.2-4.2 ALB 3.8 g/dL (Normal) Range: 3.2-5.0 T PROT 7.8 g/dL (Normal) Range: 6.4-8.2 :41 CALCIFEDIOL (98614) Comments: PATIENT WAS FASTINGPERFORMED BY: [employer]70 [facility] [id number] Vitamin D, 25-Hydroxy 44.2 ng/mL (Normal) Range: 30.0-100.0 Comments: Vitamin D deficiency has been defined by the [place] ofMedicine and an Endocrine Society practice guideline as alevel of serum 25-OH vitamin D less than 20 ng/mL (1,2).The Endocrine Society went on to further define vitamin Dinsufficiency as a level between 21 and 29 ng/mL (2).1. IOM ([place] of Medicine). 2010. Dietary reference intakes for calcium and D. [place]: The National Academies Press.2. Jacinto MF, Eddy NC, Quintin JAVED, et al. Evaluation, treatment, and prevention of vitamin D deficiency: an Endocrine Society clinical practice guideline. JCEM. 2010; 96(7):1911-30. :41 METABOLIC PANEL, Comments: PATIENT WAS FASTINGPERFORMED BY: ePod SolarRobert Wood Johnson [facility] Hospital [facility] RahwayOkriia6439 [facility] [id number] Information: [id number]; OV 03/19 COMPREHENSIVE (61394) ALT (SGPT) 15 [iU]/L (Normal) Range: 0-32 [...] 8-27 Glucose 143 mg/dL (Abnormal) Range: 65-99 34-Etr-130342:31 Blood Glucose , Office (72923) Blood Glucose , Office 211 (Normal) 51-Uan-667704:31 HgA1C , Office (14213) HgA1C , Office 6.8 % (Normal) Range: 4.6 - 7.1 99-Qry-280615:33 CBC, Platelets & Auto Diff Comments: PATIENT WAS FASTINGPERFORMED BY: [facility] Zycfjx3849 [facility] [id number] (96961) Immature Grans (Abs) 0.0 {x10E3/uL} (Normal) Range: [...] 3.77-5.28 WBC 7.7 {x10E3/uL} (Normal) Range: 3.4-10.8 27-Awh-164796:33 Lipid Panel (11323) Comments: PATIENT WAS FASTINGPERFORMED BY: [employer]70 [facility]eterNov[facility] [id number] LDL/HDL Ratio 0.9 {ratio} (Normal) Range: 0.0-3.2 Comments: LDL/HDL Ratio Men Women 1/2 Avg.Risk 1.0 1.5 Av g.Risk 3.6 3.2 2X Avg.Risk 6.2 5.0 3X Avg.Risk 8.0 6.1 LDL Cholesterol Calc 35 mg/dL (Normal) Range: 0-99 VLDL Cholesterol Kiesha 53 mg/dL (Abnormal) Range: 5-40 HDL Cholesterol 41 mg/dL (Normal) Triglycerides 264 mg/dL (Abnormal) Range: 0-149 Cholesterol, Total 129 mg/dL (Normal) Range: 100-199 57-Cmo-366490:33 Metabolic Panel, Comprehensive Comments: PATIENT WAS FASTINGPERFORMED BY: Sinch6370 [facility] [id number] (36808) ALT (SGPT) 18 [iU]/L (Normal) Range: 0-32 [...] 8-27 Glucose 150 mg/dL (Abnormal) Range: 65-99 59-Qnk-852639:33 MICROALBUMIN: CREATININE RATIO Comments: PATIENT WAS FASTINGPERFORMED BY: ePod SolarRobert Wood Johnson University Hospital at RahwayCjjkbz1682 [facility] [id number] ([id number]) AND (97403) Alb/Creat Ratio 225.5 {mg/g_creat} (Abnormal) Range: 0.0-30.0 Albumin, Urine 112.5 ug/mL (Normal) Creatinine, Urine 49.9 mg/dL (Normal) 92-Jxc-681566:33 URINALYSIS (86938) Comments: PATIENT WAS FASTINGPERFORMED BY: LabCoRobert Wood Johnson University Hospital at RahwayEjatna7789 [facility] [id number] Microscopic Examination See below: (Normal) Comments: Microscopic was indicated and was performed. Nitrite, Urine Negative (Normal) Urobilinogen,Semi-Qn 0.2 mg/dL (Normal) Range: 0.2-1.0 Bilirubin Negative (Normal) Occult Blood Negative (Normal) Ketones Negative (Normal) Glucose Negative (Normal) Protein Trace (Normal) WBC Esterase 2+ (Abnormal) Appearance Clear (Normal) Urine-Color Yellow (Normal) pH 6.5 (Normal) Range: 5.0-7.5 Specific [place] 1.014 (Normal) Range: 1.005-1.030 19-Tug-585636:33 TSH (64562) Comments: PATIENT WAS FASTINGPERFORMED BY: [facility]PathHigh[facility] [id number] TSH 3.870 {uIU/mL} (Normal) Range: 0.450-4.500 91-Vep-477397:33 Microscopic Examination Comments: PATIENT WAS FASTINGPERFORMED BY: CarRentalsMarketNovant Health Ballantyne [facility] [id number] Bacteria Few (Normal) Mucus Threads Present (Normal) Cast Type Hyaline casts (Normal) Casts Present {/lpf} (Abnormal) Epithelial Cells (non renal) >10 {/hpf} (Abnormal) Range: 0 - 10 RBC 0-2 {/hpf} (Normal) Range: 0 - 2 WBC 11-30 {/hpf} (Abnormal) Range: 0 - 5 06-Aww-808394:57 HgA1C , Office (30881) Comments: 6.6 HgA1C , Office 6.6 % (Normal) Range: 4.6 - 7.1 73-Nbt-507983:57 Blood Glucose , Office (57307) Blood Glucose , Office 211 (Normal) 51-Ipj-907056:53 HEPATIC FUNCTION PANEL Comments: PATIENT NOT FASTINGPERFORMED BY: CarRentalsMarketNovant Health Ballant[facility] [id number] (09241) ALT (SGPT) 13 [iU]/L (Normal) Range: 0-32 AST (SGOT) 17 [iU]/L (Normal) Range: 0-40 Alkaline Phosphatase, S 89 [iU]/L (Normal) Range: 39-117 Bilirubin, Direct 0.08 mg/dL (Normal) Range: 0.00-0.40 Bilirubin, Total <0.2 mg/dL (Normal) Range: 0.0-1.2 Albumin, Serum 4.2 g/dL (Normal) Range: 3.6-4.8 Protein, Total, Serum 6.8 g/dL (Normal) Range: 6.0-8.5 :53 YCFYH-WFTXVSUETYD-HUZMJ (30828) Comments: PATIENT NOT FASTINGPERFORMED BY: CB [facility] Nuvwjs0171 [address]ana RoadDublin [place] [id number] AFP, Serum, Tumor Marker 2.6 ng/mL (Normal) Range: 0.0-8.3 Comments: Rosmery ECLIA methodology :53 ALKALINE PHOSPHATASE-ISOENZYM Comments: PATIENT NOT FASTINGPERFORMED BY: CB [facility] Rdgzkb6477 Santana RoadDublin [place] [id number] ([id number]) Intestinal Frac.: 5 % (Normal) Range: 0-18 Bone Fraction: 24 % (Normal) Range: 14-68 Liver Fraction: 71 % (Normal) Range: 18-85 59-Szp-424803:11 ALKALINE PHOSPHATASE-ISOENZYM Comments: PATIENT NOT FASTINGPERFORMED BY: CB [facility] Zlqwkl3147 [address] RoadDublin [place] [id number] (45128) Intestinal Frac.: 3 % (Normal) Range: 0-18 Bone Fraction: 19 % (Normal) Range: 14-68 Liver Fraction: 78 % (Normal) Range: 18-85 Alkaline Phosphatase, S 122 [iU]/L (Abnormal) Range: 39-117 49-Ywu-560607:11 CALCIFEDIOL (98124) Comments: PATIENT NOT FASTINGPERFORMED BY: CB [facility] Czdold6491 [address] RoadDublin [place] [id number] Vitamin D, 25-Hydroxy 37.5 ng/mL (Normal) Range: 30.0-100.0 Comments: Vitamin D deficiency has been defined by the [place] ofMedicine and an Endocrine Society practice guideline as alevel of serum 25-OH vitamin D less than 20 ng/mL (1,2).The Endocrine Society went on to further define vitamin Dinsufficiency as a level between 21 and 29 ng/mL (2).1. IOM ([place] of Medicine). 2010. Dietary reference intakes for calcium and D. [place]: The National Academies Press.2. Jacinto MF, Eddy NOGUEIRA, Quintin JAVED, et al. Evaluation, treatment, and prevention of vitamin D deficiency: an Endocrine Society clinical practice guideline. JCEM. 2010; 96(7):1911-30. :11 TSH (13880) Comments: PATIENT NOT FASTINGPERFORMED BY: [facility] Gcqdnh9777 [address]ana RoadDublin [place] [id number] TSH 1.620 {uIU/mL} (Normal) Range: 0.450-4.500 :11 T4, FREE (THYROXINE) (17059) Comments: PATIENT NOT FASTINGPERFORMED BY: [facility] Saivrl1583 [address] RoadDublin [place] [id number] T4,Free(Direct) 1.00 ng/dL (Normal) Range: 0.82-1.77 :11 T3, FREE (TRIDOTHYRONINE) (66873) Comments: PATIENT NOT FASTINGPERFORMED BY: [facility] Vchsba[address] [facility] Hospitalblin [place] [id number] Triiodothyronine,Free,Serum 2.5 pg/mL (Normal) Range: 2.0-4.4 :08 HgA1C , Office (93572) HgA1C , Office 7.4 % (Abnormal) Range: 4.6 - 7.1 :08 Blood Glucose , Office (92934) Blood Glucose , Office 190 (Normal) 8-Mck-834558:30 Lipid Profile Comments: Order Date: 12/12/16Order Info: [id number] - *Hepatic Function PanelOrder Info: [id number] - *Lipid Profile CC PCPComments: 12 hours fasting, may have water.Comments: 6 months / pre [facility] Slzuwnofdl[address] [place], [address] VLDL 46 mg/dL (Abnormal) Range: 5-40 LDL [...] 200-240 mg/dL Borderline >240 mg/dL High Risk 5-Sgl-920070:30 Liver Profile Comments: Order Date: 12/12/16Order Info: [id number] - *Hepatic Function PanelOrder Info: [id number] - *Lipid Profile CC PCPComments: 12 hours fasting, may have water.Comments: 6 months / pre next visitWOhio State Health System Qslnbsuqtu9264 [facility] [place], [address] D BILI 0.11 mg/dL (Normal) Range: 0.00-0.30 T BILI 0.40 mg/dL (Normal) Range: 0.20-1.00 ALT 19 U/L (Normal) Range: 12-78 ALK P 132 U/L (Abnormal) Range: 45-117 AST 15 U/L (Normal) Range: 15-37 GLOB 4.3 g/dL (Abnormal) Range: 2.3-3.5 ALB 3.5 g/dL (Normal) Range: 3.4-5.0 T PROT 7.8 g/dL (Normal) Range: 6.4-8.2 :55 TSH (THYROID STIMULATING Comments: Week of Apr 09; PATIENT NOT FASTINGPERFORMED BY: LabCoRobert Wood Johnson University Hospital at RahwayViggro7553 [facility] [id number] HORMONE) (68901) TSH 0.728 {uIU/mL} (Normal) Range: 0.450-4.500 :55 HgA1C , Office (05558) HgA1C , Office 6.9 % (Normal) Range: 4.6 - 7.1 :55 Blood Glucose , Office (34282) Blood Glucose , Office 143 (Normal) 46-Bwy-842478:11 Microscopic Examination Comments: PATIENT WAS FASTINGPERFORMED BY: [employer] [facility] [id number] Bacteria Few (Normal) Mucus Threads Present (Normal) Cast Type Hyaline casts (Normal) Casts Present {/lpf} (Abnormal) Epithelial Cells (non renal) 0-10 {/hpf} (Normal) Range: 0 - 10 RBC 0-2 {/hpf} (Normal) Range: 0 - 2 WBC 6-10 {/hpf} (Abnormal) Range: 0 - 5 60-Oey-552564:11 URINALYSIS, W/ MICRO (34543) Comments: January 2017; PATIENT WAS FASTINGPERFORMED BY: Leapset [facility] [id number] Microscopic Examination See below: (Normal) Comments: Microscopic was indicated and was performed. Nitrite, Urine Negative (Normal) Urobilinogen,Semi-Qn 0.2 mg/dL (Normal) Range: 0.2-1.0 Bilirubin Negative (Normal) Occult Blood Negative (Normal) Ketones Negative (Normal) Glucose Trace (Abnormal) Protein 1+ (Abnormal) WBC Esterase 1+ (Abnormal) Appearance Clear (Normal) Urine-Color Yellow (Normal) pH 6.5 (Normal) Range: 5.0-7.5 Specific [place] 1.016 (Normal) Range: 1.005-1.030 82-Gwt-108043:11 MICROALBUMIN: CREATININE RATIO Comments: January 2017; PATIENT WAS FASTINGPERFORMED BY: [employer] [facility] [id number] (76357) AND (72380) Microalb/Creat Ratio 208.2 {mg/g_creat} (Abnormal) Range: 0.0-30.0 Microalbumin, Urine 182.2 ug/mL (Normal) Creatinine, Urine 87.5 mg/dL (Normal) 75-Cyb-164919:11 CBC, Platelets & Auto Diff Comments: January 2017; PATIENT WAS FASTINGPERFORMED BY: [employer] [facility] [id number] (25272) Immature Grans (Abs) 0.0 {x10E3/uL} (Normal) Range: [...] 3.77-5.28 WBC 5.6 {x10E3/uL} (Normal) Range: 3.4-10.8 87-Gtx-745496:11 Metabolic Panel, Comprehensive Comments: January 2017; PATIENT WAS FASTINGPERFORMED BY: LabCoRobert Wood Johnson University Hospital at RahwayAnnjgu5036 [facility] [id number] (72161) ALT (SGPT) 13 [iU]/L (Normal) Range: 0-32 [...] Glucose, Serum 120 mg/dL (Abnormal) Range: 65-99 96-Ohz-297325:11 TSH (THYROID STIMULATING Comments: January 2017; PATIENT WAS FASTINGPERFORMED BY: [facility] Byeesr1955 [facility] [id number] HORMONE) (66961) TSH 0.982 {uIU/mL} (Normal) Range: 0.450-4.500 3-Icz-252018:02 Lipid Profile Comments: Order Date: 12/04/16Order Info: [id number] - *Hepatic Function PanelOrder Date: 12/04/16Order Info: [id number] - *Lipid Profile CC PCPComments: 12 hours fasting, may have water.[facility] xyt[address]uz[address] [place], [address] VLDL 36 mg/dL (Normal) Range: 5-40 LDL [...] 200-240 mg/dL Borderline >240 mg/dL High Risk 5-Bqg-698413:02 Liver Profile Comments: Order Date: 12/04/16Order Info: [id number] - *Hepatic Function PanelOrder Date: 12/04/16Order Info: [id number] - *Lipid Profile CC PCPComments: 12 hours fasting, may have water.[address] [place], [place], [address] D BILI 0.07 mg/dL (Normal) Range: 0.00-0.30 T BILI 0.30 mg/dL (Normal) Range: 0.20-1.00 ALT 21 U/L (Normal) Range: 12-78 ALK P 112 U/L (Normal) Range: 45-117 AST 19 U/L (Normal) Range: 15-37 GLOB 3.8 g/dL (Abnormal) Range: 2.3-3.5 ALB 3.4 g/dL (Normal) Range: 3.4-5.0 T PROT 7.2 g/dL (Normal) Range: 6.4-8.2 78-Cty-563753:29 URINE RANDELL CULTURE-ZEINAB COL Comments: PATIENT NOT FASTINGPERFORMED BY: LabCoRobert Wood Johnson University Hospital at RahwayUqoskl5328 [facility] [id number] Information: SRC:UC COUNT (63480) Result 1 MUG (Normal) Comments: Mixed urogenital flora25,000-50,000 colony forming units per mL Urine Final report (Normal) Culture,Comprehensive 78-Nhk-687148:53 Urinalysis, Office (83791) UA - LEUKOCYTE ESTERASE Small (Normal) UA - NITRITE Negative (Normal) URINE UROBILINGN ZEINAB TIMED Normal mg/dL (Normal) UA - PROTEIN Negative mg/dL (Normal) UA - PH 7 (Normal) UA - BLOOD Negative (Normal) UA - SPECIFIC GRAVITY 1.020 (Normal) UA - KETONES Negative mg/dL (Normal) UA - BILIRUBIN Small (Normal) UA - GLUCOSE Negative (Normal) 98-Und-700038:51 Blood Glucose , Office (07989) Comments: 169 Blood Glucose , Office 169 (Normal) 78-Oou-966783:52 HgA1C , Office (79660) Comments: 7.0 HgA1C , Office 7.0 % (Normal) Range: 4.6 - 7.1 :22 URINE RANDELL CULTURE-IDENTIFICATN Comments: PATIENT NOT FASTINGPERFORMED BY: [employer] [facility] [id number] Information: SRC:UC (37481) Result 1 MUG (Normal) Comments: Mixed urogenital flora10,000-25,000 colony forming units per mL Urine Final report (Normal) Culture,Comprehensive 04-Prw-616354:05 Urinalysis, Office (13936) UA - LEUKOCYTE ESTERASE Negative (Normal) UA - NITRITE Negative (Normal) URINE UROBILINGN ZEINAB TIMED Normal mg/dL (Normal) UA - PROTEIN 30 mg/dL (Normal) UA - PH 6 (Abnormal) UA - BLOOD non-hemolyzed trace (Normal) UA - SPECIFIC GRAVITY 1.020 (Normal) UA - KETONES Negative mg/dL (Normal) UA - BILIRUBIN Negative (Normal) UA - GLUCOSE 100 (Abnormal) 6-Nnj-729069:42 HgA1C , Office (93109) HgA1C , Office 6.2 % (Normal) Range: 4.6 - 7.1 :42 Blood Glucose , Office (31445) Blood Glucose , Office 137 (Normal) 9-Tfc-196436:01 TSH (THYROID STIMULATING Comments: PATIENT NOT FASTINGPERFORMED BY: [employer] Pvnxvl3200 [facility] [id number] HORMONE) (50573) TSH 1.820 {uIU/mL} (Normal) Range: 0.450-4.500 4-Vua-792929:03 HEPATIC FUNCTION PANEL Comments: PATIENT NOT FASTINGPERFORMED BY: [employer] [facility] [id number] (74625) ALT (SGPT) 15 [iU]/L (Normal) Range: 0-32 AST (SGOT) 23 [iU]/L (Normal) Range: 0-40 Alkaline Phosphatase, S 95 [iU]/L (Normal) Range: 39-117 Bilirubin, Direct 0.12 mg/dL (Normal) Range: 0.00-0.40 Bilirubin, Total 0.3 mg/dL (Normal) Range: 0.0-1.2 Albumin, Serum 4.3 g/dL (Normal) Range: 3.6-4.8 Protein, Total, Serum 7.3 g/dL (Normal) Range: 6.0-8.5 :03 FNTAV-IULQNQWIBBJ-BYXTC (20218) Comments: PATIENT NOT FASTINGPERFORMED BY: ePod SolarRobert Wood Johnson University Hospital at RahwayFsmcji4520 [facility] [id number] AFP, Serum, Tumor Marker 2.8 ng/mL (Normal) Range: 0.0-8.3 Comments: Rosmery ECLIA methodology :03 HEPATITIS PANEL (42386) Comments: PATIENT NOT FASTINGPERFORMED BY: ePod SolarRobert Wood Johnson University Hospital at RahwayGaygca8582 [facility] [id number] Hep C Virus Ab <0.1 {s/co_ratio} (Normal) Range: 0.0-0.9 Comments: Negative: < 0.8 Indeterminate: 0.8 - 0.9 Positive: > 0.9 . The CDC recommends that a positive HCV antibody result be followed up with a HCV Nucleic Acid Amplification test (225778). Hep B Core Ab, IgM Negative (Normal) HBsAg Screen Negative (Normal) Hep A Ab, IgM Negative (Normal) :58 CBC W/Diff, Automated Comments: CBCD FOR DR GAOeastern new mexico medical centerisma [facility] Niurkxoqak[address] [place], [place], [address] Absolute Lymph 1.84 {X10_3/ul} (Normal) Range: 0.83-4.51 [...] Reason:Order Date: 05/14/16[facility] R[address]rjodk[address] [place], [address] T4 THYROXIN 11.6 ug/dL (Normal) Range: 4.8-13.9 :58 Thyroid Stim Hormone (TSH) Comments: Order Date: 05/14/16Interface Comments: Reason:Order Date: 05/14/16[facility] I[address]qsugcxl[address] [place], [address] TSH 1.96 {uIU/mL} (Normal) Range: 0.358-3.74 6-Qll-478159:11 Urinalysis, Office (22480) UA - LEUKOCYTE ESTERASE Small (Normal) UA - NITRITE Negative (Normal) URINE UROBILINGN ZEINAB TIMED Normal mg/dL (Normal) UA - PROTEIN 30 mg/dL (Normal) UA - PH 6 (Abnormal) UA - BLOOD Negative (Normal) UA - SPECIFIC GRAVITY 1.010 (Normal) UA - KETONES Negative mg/dL (Normal) UA - BILIRUBIN Negative (Normal) UA - GLUCOSE Negative (Normal) 19-Ylu-986244:50 Basic Metabolic Profile (BMP) Comments: [facility] [address]oukdas[address] [place], [address] GAP 7 (Normal) Range: 5-15 CO2 33.0 [...] 100 mg/dL (Normal) Range: 70-110 :48 MAGNESIUM (41157) Comments: PATIENT NOT FASTINGPERFORMED BY: [employer]70 [facility] [id number] Magnesium, Serum 1.6 mg/dL (Normal) Range: 1.6-2.3 :48 TSH (THYROID STIMULATING Comments: PATIENT NOT FASTINGPERFORMED BY: [facility] [id number] HORMONE) (11505) TSH 6.340 {uIU/mL} (Abnormal) Range: 0.450-4.500 :48 URIC ACID BLOOD (93235) Comments: PATIENT NOT FASTINGPERFORMED BY: [facility] [id number] Uric Acid, Serum 6.1 mg/dL (Normal) Range: 2.5-7.1 Comments: Therapeutic target for gout patients: <6.0 :09 Blood Glucose , Office (47896) Blood Glucose , Office 116 (Normal) : HgA1C , Office (03184) HgA1C , Office 6.7 % (Normal) Range: 4.6 - 7.1 13-Tlb-641628:19 Basic Metabolic Profile (BMP) Comments: Order Date: 03/12/16 Order #: [id number] Medical Specialty Hospital [facility] Pqtflafrkm[address] [place], [place], [address] GAP 7 (Normal) Range: 5-15 CO2 29.0 [...] 7-18 GLU 107 mg/dL (Normal) Range: 70-110 05-Iad-638811:19 T4 Total, Thyroxin Comments: Order Date: 03/12/16 Order #: [id number] Medical Specialty Hospital [facility] Ipxlkremgi[address] [place], [place], [address] T4 THYROXIN 9.4 ug/dL (Normal) Range: 4.8-13.9 57-Yvf-342121:19 Thyroid Stim Hormone (TSH) Comments: Order Date: 03/12/16 Order #: [id number] Medical Specialty Hospital [facility] Zpdhobrfie[address] [place], [place], [address] TSH 5.44 {uIU/mL} (Abnormal) Range: 0.358-3.74 10-Vbk-126556:49 Aerobic Bacterial Culture Comments: PATIENT NOT FASTINGPERFORMED BY: LabCoKimberly Ville 9192670 [facility] [id number] Information: RT AXILLA Result 1 MRSA (Abnormal) [...] Negative (Normal) Comments: PATIENT NOT FASTINGPERFORMED BY: LabCo[address] [id number] Information: NASAL 5:49 Culture 36-Tfk-142475:20 Basic Metabolic Profile (BMP) Comments: [facility] Tuknfmsirq[address] [place], [place], [address] GAP 7 (Normal) Range: 5-15 CO2 29.0 [...] A.D.A. criteria. :02 Blood Glucose , Office (20408) Blood Glucose , Office 137 (Normal) :54 Urine Drug Screen (Office - WNL (Normal) Comments: pos for oxy, all else neg Urine Drug Screen 6 Panel) Comments: All negative except Oxy (47498) :52 HgA1C , Office (59810) Comments: 7.3 HgA1C , Office 7.3 % (Abnormal) Range: 4.6 - 7.1 :43 Basic Metabolic Profile (BMP) Comments: DR URBINA ORDERED BMPDR MALCOLM ORDERED LIVER LIPIDSelect Medical Specialty Hospital - [facility] Vjbvpsqfmi9080 [facility] [place], [address] GAP 3 (Abnormal) Range: 5-15 CO2 33.0 mmol/L (Abnormal) Range: 21.0-32.0 CL 102 mmol/L (Normal) Range: 98-107 K 3.4 mmol/L (Abnormal) Range: 3.5-5.1 Comments: ADDENDA: Denisse at [facility] aware of potassium level NA 138 [...] 7-18 GLU 101 mg/dL (Normal) Range: 70-110 3-Kdx-709792:43 Lipid Profile Comments: DR URBINA ORDERED BMPDR MOODISPAW ORDERED LIVER LIPIDWOhioHealth Marion [facility] Hospital Tanepmdzvw[address] [place], [address] VLDL 26 mg/dL (Normal) Range: [...] 200-240 mg/dL Borderline >240 mg/dL High Risk 3-Fnz-317047:43 Liver Profile Comments: DR URBINA ORDERED BMPDR MOODISPAW ORDERED LIVER LIPIDWOhioHealth Marion General Hospital [address]ialjbewbr[address] [place], [address] D BILI 0.14 mg/dL (Normal) Range: 0.00-0.30 T BILI 0.40 mg/dL (Normal) Range: 0.20-1.00 ALT 16 U/L (Normal) Range: 12-78 ALK P 112 U/L (Normal) Range: 50-136 AST 19 U/L (Normal) Range: 15-37 GLOB 3.9 g/dL (Abnormal) Range: 2.3-3.5 ALB 3.0 g/dL (Abnormal) Range: 3.4-5.0 T PROT 6.9 g/dL (Normal) Range: 6.4-8.2 9-Naw-542325:02 Blood Glucose , Office (82773) Blood Glucose , Office 160 (Normal) 58-Yjs-623284:37 HgA1C , Office (82565) Comments: 7.2 HgA1C , Office 7.2 % (Abnormal) Range: 4.6 - 7.1 16-Ftu-445682:24 MRSA Culture (50890) Comments: [facility] Qffqlgtjzr[address] [place], [address] MRSA RESULT Negative (Normal) 7-Lci-288864:59 Metabolic Panel, Basic Comments: send to Dr.Masroor Urbina; PATIENT NOT FASTINGPERFORMED BY: [facility] Iqnfjs7047 [facility] [id number] Information: [id number] (94226) Calcium, Serum 10.7 mg/dL (Abnormal) Range: 8.7-10.3 [...] Glucose, Serum 182 mg/dL (Abnormal) Range: 65-99 5-Whu-329465:09 MRSA Culture (47300) Comments: [facility] Haoxfnpuic[address] [place], [address] MRSA RESULT POSITIVE (Abnormal) 69-Ift-85923:39 Lipid Profile Comments: [address] [place], [address] VLDL 23 mg/dL (Normal) Range: 5-40 LDL [...] Profile Comments: [facility] [address] [place], [place], [address] ; non-emergent and handled by cardio D BILI 0.14 mg/dL (Normal) Range: 0.00-0.30 T BILI 0.50 mg/dL (Normal) Range: 0.20-1.00 ALT 38 U/L (Normal) Range: 12-78 ALK P 79 U/L (Normal) Range: 50-136 AST 47 U/L (Abnormal) Range: 15-37 GLOB 4.3 g/dL (Abnormal) Range: 2.3-3.5 ALB 3.5 g/dL (Normal) Range: 3.4-5.0 T PROT 7.8 g/dL (Normal) Range: 6.4-8.2 :39 T4 Total, Thyroxin Comments: [facility] [address] [place], [address] T4 THYROXIN 10.9 ug/dL (Normal) Range: 4.8-13.9 :39 Thyroid Stim Hormone (TSH) Comments: [facility] [address] [place], [address] TSH 3.63 {uIU/mL} (Normal) Range: 0.358-3.74 1-Cng-462701:13 LIPID PANEL (88706) Comments: PATIENT WAS FASTINGPERFORMED BY: LabCoRobert Wood Johnson University Hospital at RahwayUxhufm0959 [facility] [id number] LDL/HDL Ratio 1.2 {ratio_units} (Normal) Range: 0.0-3.2 [...] Cholesterol, Total 160 mg/dL (Normal) Range: 100-199 9-Joo-640561:13 CBC W/AUTO DIFF WBC Comments: PATIENT WAS FASTINGPERFORMED BY: ePod SolarRobert Wood Johnson University Hospital at RahwaySduxne0610 [facility] [id number] Information: [id number] (34013) Immature Grans (Abs) 0.0 {x10E3/uL} (Normal) Range: [...] 3.77-5.28 WBC 4.5 {x10E3/uL} (Normal) Range: 3.4-10.8 1-Dqn-469933:13 METABOLIC PANEL, COMPREHENSIVE Comments: PATIENT WAS FASTINGPERFORMED BY: [facility]6370 [facility] [id number] (03621) ALT (SGPT) 8 [iU]/L (Normal) Range: 0-32 [...] Glucose, Serum 109 mg/dL (Abnormal) Range: 65-99 6-Ubb-756921:15 Basic Metabolic Profile (BMP) Comments: [facility] [address]mpqulve[address] [place], [address] GAP 7 (Normal) Range: 5-15 CO2 30.0 [...] 200 mg/dLsuggests DIABETES MELLITUS per A.D.A. criteria. 4-Atp-005998:15 CBC W/Diff, Automated Comments: [facility] [address]udszv[address] [place], [place], [address] Absolute Lymph 0.95 {X10_3/ul} (Normal) Range: 0.83-4.51 [...] K/mm3 (Normal) Range: 4.4-11.0 :31 LIPID PANEL (68767) Comments: PATIENT WAS FASTINGPERFORMED BY: [facility] EntertainmentG[facility]6370 [facility] [id number]; non-emergent till apt LDL/HDL Ratio 1.6 {ratio_units} [...] Cholesterol, Total 219 mg/dL (Abnormal) Range: 100-199 :31 CBC with auto diff Comments: PATIENT WAS FASTINGPERFORMED BY: ePod SolarRobert Wood Johnson University Hospital at RahwayUgovlg4894 [facility] [id number] Information: [id number] (55774) Immature Grans (Abs) 0.0 {x10E3/uL} (Normal) Range: [...] CREATININE RATIO Comments: PATIENT WAS FASTINGPERFORMED BY: TheraCellGallup Indian Medical [id number] [facility] [id number] ([id number]) AND ([id number]) Microalb/Creat Ratio 93.7 {mg/g_creat} (Abnormal) Range: 0.0-30.0 Microalbumin, Urine 196.4 ug/mL (Abnormal) Range: 0.0-17.0 Creatinine, Urine 209.7 mg/dL (Normal) Range: 15.0-278.0 :31 METABOLIC PANEL, COMPREHENSIVE Comments: PATIENT WAS FASTINGPERFORMED BY: [employer]-Bot [id number] [facility] [id number] ([id number]) ALT (SGPT) 20 [iU]/L (Normal) Range: 0-32 [...] Glucose, Serum 120 mg/dL (Abnormal) Range: 65-99 [id number]-Kxa-186925:31 Hemoglobin Glyclated (HGB A1C) Comments: PATIENT WAS FASTINGPERFORMED BY: LabCoRobert Wood Johnson [facility] Hospital at [id number] [facility] [id number] ([id number]) Hemoglobin A1c 7.6 % (Abnormal) Range: 4.8-5.6 Comments: . Pre-diabetes: 5.7 - 6.4 Diabetes: >6.4 Glycemic control for adults with diabetes: <7.0 [id number]:30 Urinalysis, Complete Comments: Order Date: 07/18/15How was Urine Obtained? [facility] [id number] [place], [place], [id number] MUCUS, URINE 0 SEEN {/hpf} (Normal) BACTERIA [...] (Abnormal) CLARITY Clear (Normal) COLOR Yellow (Normal) [id number]:43 CBC W/Diff, Automated Comments: [facility] [address] [place], [place], [address] PATH REV May foll (Normal) SMEAR COMMENT [...] 4.2-5.4 WBC 15.1 K/mm3 (Abnormal) Range: 4.4-11.0 :43 Comprehensive Metabolic Profil Comments: [facility] [id number] [place], [place], [id number] GAP 8 (Normal) Range: 5-15 CO2 33.0 [...] Comments: To be drawn 6H after [facility] [address] [place], [place], [id number] LACTIC ACID 1.7 mmol/L (Normal) Range: 0.4-2.0 49-Ypu-032141:43 Magnesium Comments: [facility] [address] [place], [id number] MG 1.3 mg/dL (Abnormal) Range: 1.8-2.4 36-Wrx-847704:43 Partial Thromboplast Time Comments: [facility] [address] [place], [id number] PTT 31.4 s (Normal) Range: 24.1-36.2 44-Sjg-990273:43 Phosphorus Comments: [facility] [address] [place], [id number] PHOS 1.0 mg/dL (Abnormal) Range: 2.5-4.9 Comments: Critical Result(s) Called at: 17:06:16 07/18/2015 by:Stacey ibarra rn 53-Vqe-709443:43 Prothrombin Time w/INR Comments: [facility] [address] [place], [id number] INR 0.9 (Normal) PROTIME 12.8 s (Normal) Range: 11.7-14.9 Plan of Care Name Dates Details Instructions Encounter for annual general medical examination with [...] with abnormal findings in adult : Reviewed Digestion Operator Letter Indication: Encounter for annual general medical [...] DF then follow up q 3 months [facility] Indication: Constipation Hypertensive heart disease without heart [...] - Strool Based DNA Test, CRC SCREEN (24605)Indication: Encounter for screening for malignant neoplasm of colon (Renamed from Special screening for malignant neoplasms, colon) On: 88-Ubu-303744:05 Request FECAL OCCULT- Tubes sent home ([id number])Indication: Encounter for screening for malignant neoplasm of colon (Renamed from Special screening for malignant neoplasms, colon) On: 38-Jwh-618006:09 Request Lipid Panel (06533)Indication: Diabetes mellitus type 2, insulin dependent On: 64-Jlr-553375:08 Request Comments: around January Metabolic Panel, Comprehensive (89406)Indication: Diabetes mellitus type 2, insulin dependent On: 09-Awe-985059:08 Request Comments: around January CBC, Platelets & Auto Diff (90326)Indication: Diabetes mellitus type 2, insulin dependent On: 36-Zuv-871682:08 Request Comments: around January TSH (48417)Indication: Diabetes mellitus type 2, insulin dependent On: 07-Hca-751570:08 Request Comments: around January Rapid Flu (25165 x 2)Indication: Unspecified Diagnosis On: 14-Sud-59631:33 Request CBC & PLATELETS (AUTO) (00307)Indication: Abdominal pain On: 3-Abe-114594:57 Request CULTURE, NOSE (32273)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 On: 64-Olo-276825:31 Request Comments: check for MRSA MRSA Culture (91289)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 On: 42-Nqj-189056:23 Request Comments: rt axila HgA1C , Office (50860)Indication: Diabetes mellitus type 2, insulin dependent On: 48-Mvm-957674:21 Request Urinalysis, Office (77547)Indication: History of MRSA infection On: 85-Avl-247437:42 Request Hemoglobin Glyclated (HGB A1C) (94046)Indication: Diabetes mellitus type 2, uncontrolled On: 36-Zlf-215915:46 Request MICROALBUMIN: CREATININE RATIO (44321) AND (73083)Indication: Hypertensive heart disease without heart failure On: 21-Wnx-185384:46 Request Planned Encounters Medical; Walk Assessment - On: 25-Jun-2018 14:30 Comprehensive Internal Medicine Visit, Nurse Medical; 3 Month FU - On: 28-Jul-2018 13:30 Comprehensive Internal Medicine Nav MCKINLEYElsa Marly Chopra CNP Onelia Planned Procedures Flu Vaccine (Quadrivalent) [id number]: On: 20-May-2018 Intent Karly Chandra DEXA SCAN AXIAL SKELETON (54109)By: On: 18-Dec-2017 Intent Nav MCKINLEY OneliaMarly Chopra CNP [place] SCREENING DIGITAL TOMOSYNTHESIS OF On: 18-Dec-2017 Intent BREAST ([id number])By: Elsa Chopra CNP, CNP [place] Flu Vaccine (Quadrivalent) [id number]: On: 11-Jun-2017 Intent Nav MCKINLEY OneliaElsa العلي CNP Comments: InfluenzaLot #[id number]-L dltd, IMDose prefilled syringeVIS and ABN signedgiven by:GENARO blackwood PHYSICAL THERAPY TREATMENT On: 11-Dec-2016 Intent (22113)By: Adelita Doshi LPN PHYSICAL THERAPY EVALUATION On: 11-Dec-2016 Intent (51682)By: Elsa Chopra CNP, CNP, Mary E Toradol Injection, 30 mg ([id number])By: On: 10-Dec-2016 Intent Elsa Chopra CNP, CNP, Mary E Radiology - Hip - RightBy: Nav On: 10-Dec-2016 Intent ARLEN OneliaMarly Chopra CNP [place] Aerosol Treatment ([id number])By: Tico On: 16-Oct-2016 Intent Adelita LAM Flu Vaccine (Quadrivalent) [id number]: On: 11-Jul-2016 Intent Nav MCKINLEY OneliaMarly Chopra CNP On[place] Comments: FLUlot: [id number]:01/16site:Lt deltoidroute:IMdose:.5mlBHAVNA SHAW Ultrasound - Abdomen CompleteBy: On: 03-Jul-2016 Intent Elsa Chopra CNP, CNP, Mary E Radiology - KUBBy: Elsa Chopra CNP On: 03-Jul-2016 Intent Elsa Chopra CNP DRAIN/INJECT SMALL JOINT OR BURSA On: 18-May-2016 Intent ()By: Elsa Chopra CNP Comments: to left wrist joint 1/2 cc cuca, 1/2 cc george. Kenalog lot #[id number] exp Marcain lot [id number] ex Elsa MCKINLEY MAMMOGRAM, SCREENING, BOTH BREAST On: 11-May-2016 Intent ([id number])By: lEsa Chopra CNP, CNP, Mary E Radiology - Chest- PA and LatBy: On: 23-Aug-2015 Intent Madeline Florez DO Comments: 4 weeks Radiology - Chest- PA and LatBy: On: 25-Jul-2015 Madeline Guerra DO Comments: 3 weeks Planned Medications INJECTION, KETOROLAC TROMETHAMINE, PER 15 MG Ordered: 10-Dec-2016 Pending Elsa Chopra CNP, CNP, Mary E Instructions Name Dates Details Nonsmoker : How to access health information [...] mellitus without complication) : DISCONTINUED - URINALYSIS ([id number]) Indication: Diabetes mellitus type II, controlled, with no complications (Renamed from Controlled type 2 diabetes mellitus without complication) CKD (chronic kidney disease), stage III : DISCONTINUED - MICROALBUMIN: CREATININE RATIO (00620) AND (09179) Indication: CKD (chronic kidney disease), stage III Diabetes mellitus type II, controlled, with no complications (Renamed from Controlled type 2 diabetes mellitus without complication) : DISCONTINUED - CBC, PLATELETS & AUT DIFF (15408) Indication: Diabetes mellitus type II, controlled, with no complications (Renamed from Controlled type 2 diabetes mellitus without complication) Diabetes mellitus type II, controlled, with no complications (Renamed from Controlled type 2 diabetes mellitus without complication) : DISCONTINUED - METABOLIC PANEL, COMPREHENSIVE (79047) Indication: Diabetes mellitus type II, controlled, with no complications (Renamed from Controlled type 2 diabetes mellitus without complication) Diabetes mellitus type II, controlled, with no complications (Renamed from Controlled type 2 diabetes mellitus without complication) : DISCONTINUED - TSH (80322) Indication: Diabetes mellitus type II, controlled, with [...] dependent : DISCONTINUED - METABOLIC PANEL, BASIC (54877) Indication: Diabetes mellitus type 2, insulin dependent [...] 2, insulin dependent Encounters Office Visit On: 27-May-2018 12:50 Encounter Reason: [...] patient does not have durable power of attorney law clerk or living will. The patient has noticed getting bored, poor spirits most of time and lack of energy. Other providers contributing to the lyndsey bolton's care are franchise specialist () and urologist (). Note for Annual [...] and is sleeping poorly. Patient has been [employer] End: 18-Dec-2017 14:15 pliant with instructions. Current [...] and is sleeping poorly. Patient has been [employer] End: 18-Sep-2017 13:50 pliant with instructions. Current [...] any known injury. [facility] hand dominant. The injury involved the left [...] - Reason for ER visit: note: (surgery [facility]. ). The patient feels well with minor [...] MRSA. She has had pre-op testing at [facility] on 10-14-2015, for Lumbar microdecompression for 10-24-2015 Blood work. Forensic Dna Analyst Dr. Dahl for papers to be signed [...] 19-Jul-2015 22:21 - sharp pain- went to [facility] ER). Current medication use: no side [...] surgeon- - recently went to er at [facility] on jul 14 - she was having lower abd groin pain - and is feeling better - doesnt remeber why fell- doesnt rember di yeyo - fell on steps and fell backwards- [...]
--- OUTSIDE RECORDS SUMMARY | 2018-09-25 14:32 | XMS RPT_ITS | Continuity of Care Document ---
:1950 Author Organization [facility] Address [facility] [address] [place] [address] Phone Care Team Providers Name Role Phone Nav ARLENElsa Unavailable Malcolm STANLEY, Casey Florian Unavailable [place] DO , Dr. Aaron Diaz Unavailable John WestfallAnnalisa lynne Unavailable Dr. Abimael Ag Unavailable Kirby STANLEY, Jared Galeano Unavailable Pascale Boston Unavailable Tico [employer], Adelita Unavailable Unavailable Karly Chandar Unavailable Unavailable Remington Oviedo Unavailable Unavailable Long [employer], Dora Orantes Unavailable Unavailable Trina Sorenson Unavailable Unavailable Unavailable [...] 585.3) Comments: follows with Dr. Munguia in [place], seen for sarcoidosis currently, stableGFR 40 Status: Active Congestive heart failure (I50.9, 428.0) [...] on wean of steroid Scale 201-250. 5 ovwgc986-739 8 kuiqj120-102 10 yhiik140-170 12 units>401 15 unitsad ding metformin not able to afford januvia, will take one bidwt gain and prednisone for a year Status: Active Diabetes mellitus type 2, uncontrolled (E11.65, 250.02) Status: Active Elevated alkaline phosphatase level (R74.8, 790.5) Status: Active Elevated WBC count (D72.829, 288.60) Status: Active Encounter for annual general medical examination with abnormal findings in adult (Z00.01, V70.0) Status: Active Encounter for screening for malignant neoplasm of colon (Renamed from Special screening for malignant neoplasms, colon) (Z12.11, V76.51) Status: Active Encounter for screening mammogram for breast cancer (Renamed from Encounter for screening mammogram for malignant neoplasm of breast) (Z12.31, V76.12) Status: Active Excessive sweating, local (L74.519, 705.21) Comments: saw Derm was given a pill for it Status: Active Fatty liver (K76.0, 571.8) Status: [...] until surgery date is known Status: Active History of sarcoidosis (Z86.2, V12.29) Status: Active Hypercalcemia (E83.52, 275.42) Status: Active Hypercholesteremia (E78.00, 272.0) Status: Active [...] given in L arm subcutaneously paitent tolerated wellLOT#[id number]#2020 NOV 06 Status: Active Postmenopausal (Renamed from Postmenopausal status) (Z78.0, V49.81) Status: Active Pregnancies () Comments: 1. 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) Comments: Sees Ciara at [facility] for sarcoid in bone marrow [...] 250.02) Comments: A1c by lab in March 7.3 takes 2 metformin bid, will see in [...] 719.43) Status: Active Medications Name Dates Details ACCU-CHENina CANDY (In Vitro Strip) 1 (one) Strip tid for 30 days Quantity: 100 {Strip} Refills: 3 Ordered:09-Jan-2016 Madeline Florez DO Start : 09-Jan-2016 Active Allopurinol 100 MG Oral Tablet 1 (one) Tablet Tablet daily for 30 days Quantity: 30 {Tablet} Refills: 3 Ordered:11-May-2016 Slarb GENARO Adelita Start : 08-May-2016 Active AmLODIPine Besylate 5 MG Oral Tablet 1 (one) Tablet bid for 30 days Quantity: 60 {Tablet} Refills: 3 Ordered:06-Jun-2018 Elsa Chopra CNP, CNP Onelia Start : 06-Jun-2018 Active ASPIRIN LOW DOSE, 81MG (Oral Tablet Delayed Release) 1 (one) Tablet DR Tablet DR daily for 30 days Quantity: 30 {Tablet} Refills: 0 Ordered:25-Jul-2015 Madeline Florez DO Start : 18-Jul-2015 Active Atorvastatin Calcium 20 MG Oral Tablet 1 (one) Tablet Tablet daily for 0 days Quantity: 90 {Tablet} Refills: 3 Ordered:04-Sep-2017 Elsa Chopra CNP, CNP Onelia Start : 04-Sep-2017 Active Calcitriol 0.25 MCG Oral Capsule 1 (one) Capsule daily for 0 days Quantity: 30 {Capsule} Refills: 6 Ordered:12-May-2018 Elsa Chopra CNP, CNP Onelia Start : 12-May-2018 Active Citalopram Hydrobromide 40 MG Oral Tablet 1/2 tab tablet tablet daily for 30 days Quantity: 30 {Tablet} Refills: 3 Ordered:02-May-2018 Elsa Chopra CNP, CNP Onelia Start : 02-May-2018 Active Cyclobenzaprine HCl 10 MG Oral Tablet 1 (one) Tablet as needed for 0 days Quantity: 30 {Tablet} Refills: 0 Ordered:11-Jun-2017 Elsa Chopra CNP, CNP Elsa Luke Start : 11-Jun-2017 Active Comments:Medication taken as needed. Pain management IRON, 325 (65 Fe)MG (Oral Tablet) 1 [...] days Quantity: 60 {Tablet} Refills: 0 Ordered:07-Jul-2018 Tatianaabelardosam MCKINLEY Elsa Leblancsam MCKINLEY Elsa Luke Start : 07-Jul-2018 Active Comments:Haleigh rundx F41.9#60thirty days Melatonin 1 MG Oral Tablet 3 (three) Tablet qhs for 0 days Quantity: 60 {Tablet} Refills: 0 Ordered:12-Mar-2016 Tatianaabelardosam MCKINLEY Elsa Leblancsam MCKINLEY Elsa Luke Start : 12-Mar-2016 Active MetFORMIN HCl ER 500 MG Oral Tablet Extended Release 24 Hour 2 (two) Tablet bid for 30 days Quantity: 120 {Tablet} Refills: 6 Ordered:27-May-2018 Nav ARLEN Elsa Leblancsam MCKINLEY Elsa Luke Start : 27-May-2018 Active Omeprazole 20 MG Oral Tablet Delayed Release 1 (one) Tablet DR Tablet DR daily for 90 days Quantity: 90 {QS} Refills: 3 Ordered:08-Jan-2018 Nav ARLEN Elsa Leblancsam MCKINLEY Elsa Luke Start : 08-Jan-2018 Active Oxybutynin Chloride ER 5 MG Oral Tablet Extended Release 24 Hour 1 (one) Tablet bid for 30 days Quantity: 60 {Tablet} Refills: 3 Ordered:28-Jul-2018 Nav ARLEN Elsa Reyes ARLEN Elsa Luke Start : 28-Jul-2018 Active Oxycodone-Acetaminophen 7.5-325 MG Oral Tablet 1 (one) Tablet Tablet bid as needed for 0 days Quantity: 60 {Tablet} Refills: 0 Ordered:03-Jul-2016 Tatianacurt ARLEN Elsa Leblancsam MCKINLEY Elsa Luke Start : 03-Jul-2016 Active Comments:Medication taken as needed. Promethazine HCl 25 MG Oral Tablet 1 (one) Tablet q 8hrs as needed for 30 days Quantity: 30 {Tablet} Refills: 1 Ordered:27-May-2018 Nav MCIKNLEY Elsa Hinton CNP Start : 27-May-2018 Active Comments:Medication taken as needed. Synthroid 50 MCG Oral Tablet 1 (one) Tablet daily except Sundays and Tuesdays for 0 days Quantity: 30 {Tablet} Refills: 3 Ordered:06-Aug-2018 Nav MCKINLEY Elsa Hinton CNP Start : 06-Aug-2018 Active Comments:generic only UNISOM, 25MG (Oral Tablet) 2 (two) Tablet Tablet q hs for 30 days Quantity: 60 {Tablet} Refills: 0 Ordered:25-Jul-2015Madeline Start : 18-Jul-2015 Active VITAMIN D3, 83220CBIT (Oral Capsule) 1 (one) Capsule Capsule once a month for 30 days Quantity: 1 {Capsule} Refills: 0 Ordered:25-Jul-2015Madeline Start : 18-Jul-2015 Active AMIODARONE HCL, 200MG (Oral Tablet) 1 (one) Tablet Tablet daily for 30 days Quantity: 30 {Tablet} Refills: 0 Ordered:20-Jan-2016 Nav MCKINLEY Elsa Hinton CNP Start : 20-Jan-2016 End : 19-Feb-2016 Inactive Comments:per [employer] Augmentin 875-125 MG Oral Tablet 1 (one) Tablet bid for 14 days Quantity: 28 {Tablet} Refills: 0 Ordered:16-Oct-2016 Nav MCKINLEY Elsa Hinton CNP Start : 16-Oct-2016 End : 30-Oct-2016 Inactive Bactrim DS 800-160 MG Oral Tablet 1 (one) Tablet bid for 10 days Quantity: 20 {QS} Refills: 0 Ordered:12-Mar-2016 Nav MCKINLEY Elsa Hinton CNP Start : 12-Mar-2016 End : 22-Mar-2016 Inactive FENOFIBRATE, 160MG (Oral Tablet) 1 (one) Tablet Tablet daily for 30 days Quantity: 30 {Tablet} Refills: 0 Ordered:19-Aug-2015Madeline Start : 18-Jul-2015 End : 17-Aug-2015 Inactive Furosemide 40 MG Oral Tablet 1/2 tab tablet daily for 30 days Quantity: 15 {Tablet} Refills: 0 Ordered:24-Jun-2018 Nav MCKINLEY Elsa Amy MCKINLEY, Onelia Start : 24-Jun-2018 End : 24-Jul-2018 Inactive ISOSORBIDE MONONITRATE, 10MG (Oral Tablet) 1 [...] 60 {Tablet} Refills: 0 Ordered:19-Aug-2015 Madeline MOY Start : 18-Jul-2015 End : 17-Aug-2015 Inactive PEN NEEDLES 3/16, 31G X 5 MM (Miscellaneous) 1 (one) Misc q am for 30 days Quantity: 30 {Unspecified} Refills: 0 Ordered:28-Nov-2015 SlaAdelita mancilla LPN Start : 28-Nov-2015 End : 28-Dec-2015 Inactive PIOGLITAZONE HCL, 15MG (Oral Tablet) 1 (one) Tablet Tablet daily for 30 days Quantity: 30 {Tablet} Refills: 0 Ordered:19-Aug-2015 Madeline MOY Start : 18-Jul-2015 End : 17-Aug-2015 Inactive PREDNISONE, 20MG (Oral Tablet) 1/2 Tablet Tablet QOD for 30 days Quantity: 15 {Tablet} Refills: 0 Ordered:21-Oct-2015 Nav MCKINLEY Elsa Amy MCKINLEY, Elsa Luke Start : 21-Oct-2015 End : 20-Nov-2015 Inactive Tradjenta 5 MG Oral Tablet 1 (one) Tablet daily for 0 days Quantity: 30 {Tablet} Refills: 3 Ordered:20-May-2018 Nav MCKINLEY, Elsa Reyes CNP, Elsa Luke Start : 23-Apr-2018 End : 20-May-2018 Inactive Unisom Sleepgels 50 MG Oral Capsule 1 (one) Capsule Capsule qhs for 0 days Quantity: 30 {Capsule} Refills: 0 Ordered:10-Aug-2016 Dora Mckeon LPN Start : 07-Feb-2016 End : 10-Aug-2016 Inactive Xtampza ER 13.5 MG Oral Capsule ER 12 Hour Abuse-Deterrent 1 (one) Capsule q 12 hours for 30 days Quantity: 60 {Capsule} Refills: 0 Ordered:18-Jan-2018 Nav MCKINLEY, Elsa Reyes CNP, Elsa Luke Start : 18-Dec-2017 End : [...] days Quantity: 1 {Vial} Refills: 6 Ordered:07-Feb-2016 Nav PARTNER, Elsa Reyes PARTNER, Elsa Luke Start : 03-Oct-2015 End : 07-Feb-2016 Discontinued LEVEMIR, 100UNIT/ML (Subcutaneous Solution) 20 Solution units each morning for 30 days Quantity: 1 {Vial} Refills: 6 Ordered:20-Jan-2016 Adelita Doshi LPN Start : 21-Oct-2015 End : 20-Jan-2016 Discontinued MACROBID, 100MG (Oral Capsule) q12hrs (100 MG) End : 05-Aug-2015 Discontinued Comments:[facility] MUPIROCIN, 2% (External Ointment) 1 (one) [...] days Quantity: 60 {QS} Refills: 0 Ordered:18-Dec-2017 Slarb [employer], Adelita Start : 03-Jul-2016 End : 18-Dec-2017 Discontinued PredniSONE 10 MG Oral Tablet 1 (one) Tablet bid x 3 days, then 1 daily x 3 days,then 1/2 daily x 3 for 0 days Quantity: 12 {Tablet} Refills: 0 Ordered:19-Nov-2016 Slarb [employer], Adelita Start : 16-Oct-2016 End : 19-Nov-2016 Discontinued Comments:with food PredniSONE 5 MG Oral Tablet 1 (one) Tablet Tablet qod for 0 days Quantity: 60 {Tablet} Refills: 11 Ordered:12-Mar-2016 Slarb [employer], Adelita Start : 20-Jan-2016 End : 12-Mar-2016 Discontinued Comments:Per Ciara Avila Perles 100 MG Oral Capsule 1 (one) Capsule tid prn for 0 days Quantity: 30 {Capsule} Refills: 0 Ordered:19-Nov-2016 Slarb [employer], Adelita Start : 16-Oct-2016 End : 19-Nov-2016 Discontinued Vancomycin HCl End : 05-Aug-2015 Discontinued Comments:1,250mg IV q24hrs x 36rdbz2,500mg IV q24hrs #14 Allergies and Adverse Reactions [...] Comments: was seeing Dr. Munguia's partner in [place] Dr. Morel, gfr 43%, has proteinuria Status: [...] vertebroplasty 06/16- l1 Completed Date Value Details 31-Jul-2018 Chest PA and Lateral Result: Comments: See Note; NOTES: [facility] Imaging Services [address] [place] [address] Chest PA and Lateral MR#: [id number] Acct: [id number] Name: SHREYAS KATHLEEN Rep #: [id number] : 1950 F 68 From: Blane Shelley MD PCP: Elsa Chopra NP Status: REG CLI Study: Chest PA and Lateral Date of Exam: 07/31/18 Exam# [id number] Ordering Dr: Elsa Chopra INTERVENTIONIST-C HISTORY: HX OF SARCOI DOSIS EXAM: XR Chest 2 Views: COMPARISON: None FINDINGS: Stable findings. Normal heart size. Right middle lobe medial segment chronic scarring with secondary partial obscuration of the right heart shana rder. No acute infiltrate. Right lower lobe calcified granuloma. No vascular congestion or pleural effusion. Atherosclerotic thoracic aorta. Previous T12 level kyphoplasty. RAD/Ches t PA and Lateral IMPRESSION: 1. No acute disease or significant change. 2. Old granulomatous disease with right middle lobe chronic scarring. Electronically Signed by Blane Shelley MD on 07/05 at 0805 Reported and signed by: Blane Shelley MD Electronically Signed: Blane Shelley, at 8:03 EST Tel , Service support , CC: Elsa Chopra NP Stores Despatch Hand: Signed 17-Feb-2018 Cardiology Visit Report Result: Comments: See Note; NOTES: [facility] [address] [place] [address] OFFICE VISIT Date of Service: 02/17/18 MR#: [id number] Acct: [id number] Name: SHREYAS KATHLEEN Rep #: [id number] : 1950 Provider: Casey Fowler MD Age/Sex: 67/F Location: [facility] [place] Status: Signed HPI HPI Details: SHREYAS KATHLEEN, is a 67 F who presents to the office today for for outpatien t cardiovascular follow-up of her history of underlying CAD, non-ST segment elevation LA, paroxysmal atrial fibrillation, superimposed upon a history [...] PFSH Medical History Atherosclerotic heart disease of [place] coronary artery without angina pectoris (Chronic) History [...] stenosis Assessment AND Plan 1. Atherosclerosis of [place] coronary artery of [place] heart without angina pectoris I25.10 Mild Plan [...] scheduled for an outpatient visit in [facility] 9 months unless needed sooner. Thank you for allowing me to participate in the care of your patient. Please don't hesitate to call if any issues arise. This note was generated using a voice [employer] system and there may be incorrect words, spelling or punctuation that were not noted when reviewing the office note prior to saving. Follow Up 9 Months Coding Level of Care Code Off vis,est,leve l 4 Diagnoses Atherosclerosis of [place] coronary artery of [place] heart without angina pectoris I25.10 [place] vs. transplanted heart: [place] heart Paroxysmal atrial fibrillation I48.0 Hyperlipidemia, u nspecified hyperlipidemia type E78.5 Hyperlipidemia type: unspecified Essential hypertension I10 Hypertension type: essential hypertension Long-term use of high-risk medication Z79.899 Coding Level of Care Code Off vis,est,level 4 Diagnoses Atherosclerosis of [place] coronary artery of [place] heart without angina pectoris I25.10 [place] vs. transplanted heart: [place] heart Paroxysmal atrial fibrillat ion I48.0 Hyperlipidemia, unspecified hyperlipidemia type E78.5 Hyperlipidemia type: unspecified Essential hypertension I10 Hypertension type: essential hypertension Long-term use of high-risk medicatio n Z79.899 02/17/18 1530 <Electronically signed by Casey Fowler MD> Date Casey Fowler MD Cosigner Signature: Date _ (if applicable) CC: Elsa Chopra NP 14-Feb-2018 SCREENING MAMM (CAD), BILAT Result: Comments: See Note; NOTES: [facility] Imaging Services [address] [place] [address] SCREENING MAMM (CAD), BILAT MR#: [id number] Acct: [id number] Name: SHREYAS KATHLEEN Rep #: [id number] : 1950 F 67 From: Elias Finn MD PCP: Elsa Chopra NP Status: REG CLI Study: SCREENING MAMM (CAD), BILAT Date of Exam: 02/14/18 Exam# [id number] Ordering Dr: Elsa Chopra MAMMO GRAPHY - [...] these results will be sent to the [facility] by the facility within 30 days. Approximately 10% of breast cancers are not detected by mammography. A normal mammogram should not delay biopsy of a clinically suspicious abnormality. [id number] Elect ronically Signed: Elias Finn MD at 8:30 EDT Tel [phone], Service support , CC: Elsa Chopra NP Stores Despatch Hand: Signed 21-Jan-2018 Dexa Bone Density Study Result: Comments: See Note; NOTES: [facility] Imaging Services [address] [place] [address] Dexa Bone Density Study MR#: [id number] Acct: [id number] Name: SHREYAS KATHLEEN Rep #: [id number] : 1950 F 67 From: Elias Finn MD PCP: Elsa Chopra NP Status: REG CLI Study: Dexa Bone Density Study Date of Exam: 01/21/18 Exam# [id number] Ordering Dr: Elsa Chopra STUDY: DUAL E [...] Elias Finn MD at 15:36 EDT Tel [phone], Service support , CC: Elsa Chopra NP Stores Despatch Hand: Signed 10-Dec-2016 Hip 2-3 Views with Pelvis Result: Comments: See Note; NOTES: [facility] Imaging Services [address] [place] [address] Verdana 4d Hip 2-3 Views with Pelvis MR#: [id number] Acct: [id number] Name: SHREYAS KATHLEEN Rep #: [id number] : 1950 F 66 From: Herve Jimenez MD PCP: Elsa Chopra Status: REG CLI Study: Hip 2-3 Views with Pelvis Date of Exam: 12/10/16 Exam# [id number] Ordering Dr: Elsa Chopra STUDY : X-RAY [...] FACR at 11:31 EDT , Service support [phone], CC: Elsa Chopra Stores Despatch Hand: Signed 05-Jul-2016 Abdomen Complete Result: Comments: See Note; NOTES: [facility] Imaging Services [address] [place] [address] Verda 4d Abdomen Complete MR#: [id number] Acct: [id number] Name: SHREYAS KATHLEEN Keira Rep #: [id number] : 1950 F 66 From: Elias Finn MD PCP: Elsa Chopra Status: REG CLI Study: Abdomen Complete Date of Exam: 07/05/16 Exam# [id number] Ordering Dr: Elsa Chopra STUDY: ABDOMINAL ULTRASOUND [...] Elias Finn MD at 9:35 EDT Tel [phone], Service support [phone], CC: Elsa Chopra Stores Despatch Hand: Signed 05-Jul-2016 Abdomen Single View Result: Comments: See Note; NOTES: [facility] Imaging Services [address] [place] [address] Verdana 4d Abdomen Single View MR#: [id number] Acct: [id number] Name: SHREYAS KATHLEEN Rep #: [id number] : 1950 F 66 From: Elias Finn MD PCP: Elsa Chopra Status: REG CLI Study: Abdomen Single View Date of Exam: 07/05/16 Exam# [id number] Ordering Dr: Elsa Chopra STUDY: X-RA Y [...] of the L1 vertebrae. ORDER # : [id number] RAD/Abdomen Single View IMPRESSION: Moderate amount of fecal material is seen in the colon. Electronically Signed: Elias Finn MD at 10:34 EDT Tel [phone], Service sup port [phone], CC: Elsa Chopra Stores Despatch Hand: Signed 18-May-2016 Bilat Scrn Digital AND CAD Result: Comments: See Note; NOTES: [facility] Imaging Services [address] [place] [address] Verdana 4d Bilat Scrn Digital AND CAD MR#: [id number] Acct: [id number] Name: HEVERJACINTO Crockett Rep #: [id number] : 1950 F 65 From: Elias Finn MD PCP: Elsa Chopra Status: REG CLI Study: [place] Digital AND CAD Date of Exam: 05/18/16 Exam# [id number] Ordering Dr: Elsa Chopra MAMMOGRAPHY - BILATERAL [...] no significant change since the prior study. [facility]/[place] Digital AND CAD IMPRESSION: Stab le bilateral screening mammogram. Yearly follow-up mammogram recommended. (A) ASSESSMENT CATEGORY: BIRADS Category 1: Negative. A letter regarding these results yane l be sent to the patient by the facility within 30 days. Approximately 10% of breast cancers are not detected by mammography. A normal mammogram should not delay biopsy of a clinically suspicious abnor mality. [id number] Electronically Signed: Elias Finn MD at 12:53 EDT Tel [phone], Service support [phone], CC: Elsa Chopra Stores Despatch Hand: Signed 14-Feb-2016 Shoulder min 2 Views Result: Comments: See Note; NOTES: [facility] Imaging Services [address] [place] [address] Verdana 4d Shoulder min 2 Views MR#: [id number] Acct: [id number] Name: SHREYAS KATHLEEN Rep #: [id number] : 1950 F 65 From: Herve Jimenez MD PCP: Madeline Florez DO Status: REG CLI Study: Shoulder min 2 Views Date of Exam: 02/14/16 Exam# [id number] Ordering Dr: Pascale Boston DO STUDY: X-RAY [...] FACR at 14:50 EDT , Service support [phone], Fax RAD/Shoulder min 2 Views IMPRESSION: Bilateral of the acromioclavicular joint, otherwise normal x-ray examination of the shoulder. Electronically Signed: Herve Jimenez MD, FACR at 14:50 EDT , Service support [phone], CC: Pascale Boston DO; Madeline Florez DO Stores Despatch Hand: Signed 21-Oct-2015 Spirometry (59130) Comments: mod restriction Result: 19-Sep-2015 Chest PA and Lateral Result: Comments: See Note; NOTES: [facility] Imaging Services [address] [place] [address] Nidiadana 4d Chest PA and Lateral MR#: [id number] Acct: [id number] Name: SHREYAS KATHLEEN Rep #: [id number] : 1950 F 65 From: Elias Finn MD PCP: Madeline Florez DO Status: REG CLI Study: Chest PA and Lateral Date of Exam: 09/19/15 Exam# [id number] Ordering Dr: Madeline Florez DO STUDY: X-RAY [...] Elias Finn MD at 13:58 EST Tel [phone], Service support [phone], RAD/Chest PA and Lateral IMPRESSION: Stable examination. No acute abnormality is seen. Electronically Doris d: Elias Finn MD at 13:58 EST Tel [phone], Service support [phone], CC: Madeline Florez DO Stores Despatch Hand: Signed 25-Aug-2015 Spine Lumbar (Routine) Result: Comments: See Note; NOTES: [facility] Imaging Services [address] [place] [address] Verdavinayak 4d Spine Lumbar (Routine) MR#: [id number] Acct: [id number] Name: SHREYAS MAJOR Rep #: [id number] : 1950 F 65 From: Herve Jimenez MD PCP: Madeline Florez DO Status: REG CLI Study: Spine Lumbar (Routine) Date of Exam: 08/25/15 Exam# [id number] Ordering Dr: ELIZABETH DE LEON M.D. STUDY: [...] FACR at 17:43 EST , Service support [phone], CC: ELIZABETH DE LEON M.D.; Madeline Florez DO Stores Despatch Hand: Signed 25-Aug-2015 Spine Thoracic (Routine) Result: Comments: See Note; NOTES: [facility] Imaging Services [address] [place] [address] Verda 4d Spine Thoracic (Routine) MR#: [id number] Acct: [id number] Name: SHREYAS SHARIF Rep #: [id number] : 1950 F 65 From: Herve Jimenez MD PCP: Madeline Florez DO Status: REG CLI Study: Spine Thoracic (Routine) Date of Exam: 08/25/15 Exam# [id number] Ordering Dr: ELIZABETH RUIZ M.D. STUDY: MRI [...] FACR at 17:45 EST , Service support [phone], CC: ELIZABETH DE LEON M.D.; Komal Florez DO Stores Despatch Hand: Signed 17-Aug-2015 Chest PA and Lateral Result: Comments: See Note; NOTES: [facility] Imaging Services [address] [place] [address] [place] [address] 4d Chest PA and Lateral MR#: [id number] Acct: [id number] Name: SHREYAS KATHLEEN Rep #: [id number] : 1950 F 65 From: Elias Finn MD PCP: Madeline Florez DO Status: REG CLI Study: Chest PA and Lateral Date of Exam: 08/17/15 Exam# [id number] Ordering Dr: Madeline Florez DO STUDY: X-RAY [...] Elias Finn MD at 11:09 EST Tel [phone], Service support [phone], Fax RAD/Chest PA and Lateral IMPRESSION: Residual changes persist in the right middle lobe and there has been some improvement. Further followup is recommended. Electr onically Signed: Elias Finn MD at 11:09 EST Tel [phone], Service support [phone], CC: Madeline Florez DO Stores Despatch Hand: Signed 12-Aug-2015 Discharge Instruction Result: Comments: See Note; NOTES: [facility] Medical Records Department [address] [place] [address] Discharge Instruction 08/10/15 1702 MR#: [id number] Acct: [id number] Name: SHREYAS KATHLEEN Rep #: [id number] : 1950 65 From: Denny Bone MD [...] problems, contact your doctor. Call [facility] ([phone]) or report to the closest Emergency Room. Call 911 if necessary. 08/12/15 1502 <Elect ronically signed by Denny Bone MD> Date Denny Bone MD Cosigner Signature (If Indicated): Date CC: Madeline Florez DO 12-Aug-2015 Emergency Department Summary Result: Comments: See Note; NOTES: [facility] Medical Records Department [address] [place] [address] Emergency Department Summary MR#: [id number] Acct: [id number] Name: SHREYAS KATHLEEN Rep #: [id number] : 1950 65 From: Denny Bone MD [...] the patient had blood cultures obtained at [facility] and they were called to Dr. [...] Nacho Ramirez C: Madeline Bonilla MD T: NTS JOB: [id number] 08/12/15 1502 <Electronically signed by Denny Bone MD> Date Denny Bone MD Cosigner Signature (If Indicated): Date ___ CC: Madeline Florez DO; Katelyn Arenas MD Date Dictated: 08/10/151708 Date Transcribed: 08/10/151708 Stores Despatch Hand: Signed Social History Name Dates Details No Caffeine Use Status: Active No Drug Use Status: Active Non Drinker/No Alcohol Use Status: Active Tobacco use: Never smoker. Status: Active Smoking Status Name Dates Details Never smoker Vital Signs Date Test Result Details :25 Temperature 98 f Comments: Method: Temporal Pulse 89 /min Comments: Pattern: Regular Respiration Rate 18 /min Comments: Pattern: Unlabored O2 SAT 94 % Comments: Room air BP Systolic 104 mm[Hg] Comments: Patient Position: Sitting; Cuff Location: Left Arm; Cuff Size: Standard BP Diastolic 70 mm[Hg] Comments: Patient Position: Sitting; Cuff Location: Left Arm; Cuff Size: Standard Weight 175.25 lb Height 63 in Body Mass Index Calculated 31.04 kg/m2 Body Surface Area Calculated 1.83 m2 :48 Pulse 107 /min Comments: Pattern: Regular [...] kg/m2 Body Surface Area Calculated 1.85 m2 [id number] Temperature 97.5 f Pulse 89 /min Comments: [...] kg/m2 Body Surface Area Calculated 1.85 m2 :20 Temperature 97.8 f Comments: Method: Temporal Pulse [...] unknown, given order todayLast vision screen 2014 [place] Temperature 98.3 f Pulse 75 /min Comments: [...] Size: Large Results Date Description Value Details :42 Microscopic Examination Comments: PATIENT NOT FASTINGPERFORMED BY: NEY [facility] Waqcmx6368 [facility] [id number] Bacteria None seen (Normal) Mucus Threads Present (Normal) Cast Type Hyaline casts (Normal) Casts Present {/lpf} (Abnormal) Epithelial Cells (non renal) 0-10 {/hpf} (Normal) Range: 0 - 10 RBC None seen {/hpf} (Normal) Range: 0 - 2 WBC 0-5 {/hpf} (Normal) Range: 0 - 5 49-Uqs-471413:42 URINALYSIS (51036) Comments: PATIENT NOT FASTINGPERFORMED BY: Visibiz [employer] [facility] [id number] Information: SRC:UC Microscopic Examination See below: (Normal) Comments: Microscopic was indicated and was performed. Nitrite, Urine Negative (Normal) Urobilinogen,Semi-Qn 0.2 mg/dL (Normal) Range: 0.2-1.0 Bilirubin Negative (Normal) Occult Blood Negative (Normal) Ketones Negative (Normal) Glucose Trace (Abnormal) Protein Trace (Normal) WBC Esterase Trace (Abnormal) Appearance Clear (Normal) Urine-Color Yellow (Normal) pH 7.0 (Normal) Range: 5.0-7.5 Specific [place] 1.010 (Normal) Range: 1.005-1.030 74-Iru-466349:42 URINE RANDELL CULTURE-IDENTIFICATN Comments: PATIENT NOT FASTINGPERFORMED BY: Visibiz [facility] [place] [facility] [id number] ([id number]) Result 1 MUG (Normal) Comments: Mixed urogenital flora25,000-50,000 colony forming units per mL Urine Final report (Normal) Culture,Comprehensive 95-Tot-166426:49 PARATHORMONE (08063) Comments: PATIENT NOT FASTINGPERFORMED BY: GnuBIO Qfkmjp4305 [facility] [id number] PTH, Intact 45 pg/mL (Normal) Range: 15-65 06-Vfh-347681:49 CBC, Platelets & Auto Diff Comments: PATIENT NOT FASTINGPERFORMED BY: GnuBIO Zmvgzq4427 [facility] [id number] ([id number]) Immature Grans (Abs) 0.0 {x10E3/uL} (Normal) Range: 0.0-0.1 Immature Granulocytes 0 % (Normal) Baso (Absolute) 0.0 {x10E3/uL} (Normal) Range: 0.0-0.2 Eos (Absolute) 0.2 {x10E3/uL} (Normal) Range: 0.0-0.4 Monocytes(Absolute) 0.7 {x10E3/uL} (Normal) Range: 0.1-0.9 Lymphs (Absolute) 3.4 {x10E3/uL} (Abnormal) Range: 0.7-3.1 Neutrophils (Absolute) 7.2 {x10E3/uL} (Abnormal) Range: 1.4-7.0 Basos 0 % (Normal) Eos 1 % (Normal) Monocytes 6 % (Normal) Lymphs 29 % (Normal) Neutrophils 64 % (Normal) Platelets 305 {x10E3/uL} (Normal) Range: 150-379 RDW 13.6 % (Normal) Range: 12.3-15.4 MCHC 32.5 g/dL (Normal) Range: 31.5-35.7 MCH 30.0 pg (Normal) Range: 26.6-33.0 MCV 92 fL (Normal) Range: 79-97 Hematocrit 37.5 % (Normal) Range: 34.0-46.6 Hemoglobin 12.2 g/dL (Normal) Range: 11.1-15.9 RBC 4.06 {x10E6/uL} (Normal) Range: 3.77-5.28 WBC 11.4 {x10E3/uL} (Abnormal) Range: 3.4-10.8 42-Pqt-455347:49 Metabolic Panel, Comprehensive Comments: PATIENT NOT FASTINGPERFORMED BY: [facility]Oefhrl6945 [facility] [id number] ([id number]) ALT (SGPT) 9 [iU]/L (Normal) Range: 0-32 AST (SGOT) 17 [iU]/L (Normal) Range: 0-40 Alkaline Phosphatase 94 [iU]/L (Normal) Range: 39-117 Bilirubin, Total <0.2 mg/dL (Normal) Range: 0.0-1.2 A/G Ratio 1.5 (Normal) Range: 1.2-2.2 Globulin, Total 2.9 g/dL (Normal) Range: 1.5-4.5 Albumin 4.4 g/dL (Normal) Range: 3.6-4.8 Protein, Total 7.3 g/dL (Normal) Range: 6.0-8.5 Calcium 9.2 mg/dL (Normal) Range: 8.7-10.3 Carbon Dioxide, Total 23 mmol/L (Normal) Range: 20-29 Chloride 96 mmol/L (Normal) Range: 96-106 Potassium 4.2 mmol/L (Normal) Range: 3.5-5.2 Sodium 139 mmol/L (Normal) Range: 134-144 BUN/Creatinine Ratio 10 (Abnormal) Range: 12-28 eGFR If Africn Am 40 mL/min/1.73 (Abnormal) eGFR If NonAfricn Am 35 mL/min/1.73 (Abnormal) Creatinine 1.53 mg/dL (Abnormal) Range: 0.57-1.00 BUN 16 mg/dL (Normal) Range: 8-27 Glucose 136 mg/dL (Abnormal) Range: 65-99 46-Mml-396506:44 URINE CALCIUM ZEINAB TIMED Comments: PATIENT NOT FASTINGPERFORMED BY: NEY Gnu[employer] [facility] [id number] Information: START 07/30/18@7AM (24163) Calcium, Urine 24hr 56.0 {mg/24_hr} (Abnormal) Range: 100.0-300.0 Calcium, Urine 2.8 mg/dL (Normal) 43-Vqv-714866:26 HgA1C , Office (85166) HgA1C , Office 6.4 % (Normal) Range: 4.6 - 7.1 01-Ftn-406492:26 Blood Glucose , Office (80200) Blood Glucose , Office 163 (Normal) 87-Chz-58202:00 MICROALBUMIN: CREATININE RATIO Comments: Jun 19; PATIENT WAS FASTINGPERFORMED BY: GnuBIO Max[employer] [facility] [id number] ([id number]) AND (49981) Alb/Creat Ratio 266.9 {mg/g_creat} (Abnormal) Range: 0.0-30.0 Albumin, Urine 168.7 ug/mL (Normal) Creatinine, Urine 63.2 mg/dL (Normal) 24-Nmf-67220:00 Metabolic Panel, Comprehensive Comments: Jun 19; PATIENT WAS FASTINGPERFORMED BY: GnuBIO Max[employer] [facility] [id number] (24066) ALT (SGPT) 14 [iU]/L (Normal) Range: 0-32 [...] 8-27 Glucose 121 mg/dL (Abnormal) Range: 65-99 44-Jty-44649:00 HGB A1C (62977) Comments: June 19; PATIENT WAS FASTINGPERFORMED BY: Mobimedia70 [facility] [id number] Hemoglobin A1c 7.0 % (Abnormal) Range: 4.8-5.6 Comments: . Prediabetes: 5.7 - 6.4 Diabetes: >6.4 Glycemic control for adults with diabetes: <7.0 58-Hek-202280:33 ALKALINE PHOSPHATASE-ISOENZYM Comments: PATIENT NOT FASTINGPERFORMED BY: [facility]DataSS[facility] [id number] (35660) Intestinal Frac.: 0 % (Normal) Range: 0-18 Bone Fraction: 27 % (Normal) Range: 14-68 Liver Fraction: 73 % (Normal) Range: 18-85 Alkaline Phosphatase 89 [iU]/L (Normal) Range: 39-117 25-Gpm-184166:33 CBC, Platelets & Auto Diff Comments: PATIENT NOT FASTINGPERFORMED BY: [facility] Sagfnu7254 [place] [id number] (98149) Immature Grans (Abs) 0.0 {x10E3/uL} (Normal) Range: [...] 3.77-5.28 WBC 5.9 {x10E3/uL} (Normal) Range: 3.4-10.8 42-Efq-518060:22 HgA1C , Office (16609) Comments: 7.3 HgA1C , Office 7.3 % (Abnormal) Range: 4.6 - 7.1 20-Bnm-506700:22 Blood Glucose , Office (85783) Blood Glucose , Office 173 (Normal) 79-Rza-14002:40 Basic Metabolic Profile (BMP) Comments: SEND RESULTS OF BMP TO .[place] [address] [place], [place], [id number] GAP 11 (Normal) Range: 5-15 CO2 27.0 [...] A.D.A. criteria.Please note revised GLUCOSE reference range uhkbixfwg43/02/2018. 02-Elr-28466:40 Liver Profile Comments: SEND RESULTS OF BMP TO .[place] [address]xhqdsa[address] [place], [place], [address] D BILI 0.09 mg/dL (Normal) Range: 0.00-0.30 T BILI 0.40 mg/dL (Normal) Range: 0.20-1.00 ALT 22 U/L (Normal) Range: 13-56 ALK P 103 U/L (Normal) Range: 45-117 AST 17 U/L (Normal) Range: 15-37 GLOB 4.0 g/dL (Normal) Range: 2.2-4.2 ALB 3.8 g/dL (Normal) Range: 3.2-5.0 T PROT 7.8 g/dL (Normal) Range: 6.4-8.2 13-Tlj-534400:41 CALCIFEDIOL (89058) Comments: PATIENT WAS FASTINGPERFORMED BY: BuldumBuldum.comSalem Memorial District HospitalUwwess2196 [facility] [id number] Vitamin D, 25-Hydroxy 44.2 ng/mL (Normal) Range: 30.0-100.0 Comments: Vitamin D deficiency has been defined by the [place] of[place]icine and an Endocrine Society practice guideline as alevel of serum 25-OH vitamin D less than 20 ng/mL (1,2).The Endocrine Society went on to further define vitamin Dinsufficiency as a level between 21 and 29 ng/mL (2).1. IOM ([place] of Medicine). 2010. Dietary reference intakes for calcium and D. [place]: The National Academies Press.2. Jacinto MF, Eddy NC, Quintin JAVED, et al. Evaluation, treatment, and prevention of vitamin D deficiency: an Endocrine Society clinical practice guideline. JCEM. 2010; 96(7):1911-30. 98-Wtv-713808:41 METABOLIC PANEL, Comments: PATIENT WAS FASTINGPERFORMED BY: BuldumBuldum.comKalkaska Memorial Health Center6370 [facility] [id number] Information: [id number],C78289; OV 03/19 COMPREHENSIVE (91158) ALT (SGPT) 15 [iU]/L (Normal) Range: 0-32 [...] 8-27 Glucose 143 mg/dL (Abnormal) Range: 65-99 09-Eam-402486:31 Blood Glucose , Office (90159) Blood Glucose , Office 211 (Normal) 21-Xck-638664:31 HgA1C , Office (43387) HgA1C , Office 6.8 % (Normal) Range: 4.6 - 7.1 :33 CBC, Platelets & Auto Diff Comments: PATIENT WAS FASTINGPERFORMED BY: [facility]Kjpesu5687 [facility] [id number] (24135) Immature Grans (Abs) 0.0 {x10E3/uL} (Normal) Range: [...] 3.77-5.28 WBC 7.7 {x10E3/uL} (Normal) Range: 3.4-10.8 16-Goo-044671:33 Lipid Panel (39444) Comments: PATIENT WAS FASTINGPERFORMED BY: Parkplatzking Pricgq1134 [facility] [id number] LDL/HDL Ratio 0.9 {ratio} (Normal) Range: 0.0-3.2 Comments: LDL/HDL Ratio Men Women 1/2 Avg.Risk 1.0 1.5 Av g.Risk 3.6 3.2 2X Avg.Risk 6.2 5.0 3X Avg.Risk 8.0 6.1 LDL Cholesterol Calc 35 mg/dL (Normal) Range: 0-99 VLDL Cholesterol Kiesha 53 mg/dL (Abnormal) Range: 5-40 HDL Cholesterol 41 mg/dL (Normal) Triglycerides 264 mg/dL (Abnormal) Range: 0-149 Cholesterol, Total 129 mg/dL (Normal) Range: 100-199 79-Ges-468699:33 Metabolic Panel, Comprehensive Comments: PATIENT WAS FASTINGPERFORMED BY: [employer] Mzqwac2065 [facility] [id number] (63874) ALT (SGPT) 18 [iU]/L (Normal) Range: 0-32 [...] CREATININE RATIO Comments: PATIENT WAS FASTINGPERFORMED BY: [facility]MicaUNC [facility] [id number] (38250) AND (72424) Alb/Creat Ratio 225.5 {mg/g_creat} (Abnormal) Range: 0.0-30.0 Albumin, Urine 112.5 ug/mL (Normal) Creatinine, Urine 49.9 mg/dL (Normal) :33 URINALYSIS (21613) Comments: PATIENT WAS FASTINGPERFORMED BY: RedMicaUNC Health [id number] Microscopic Examination See below: (Normal) Comments: Microscopic was indicated and was performed. Nitrite, Urine Negative (Normal) Urobilinogen,Semi-Qn 0.2 mg/dL (Normal) Range: 0.2-1.0 Bilirubin Negative (Normal) Occult Blood Negative (Normal) Ketones Negative (Normal) Glucose Negative (Normal) Protein Trace (Normal) WBC Esterase 2+ (Abnormal) Appearance Clear (Normal) Urine-Color Yellow (Normal) pH 6.5 (Normal) Range: 5.0-7.5 Specific [place] 1.014 (Normal) Range: 1.005-1.030 :33 TSH (25987) Comments: PATIENT WAS FASTINGPERFORMED BY: RedMicaUNC Health [id number] TSH 3.870 {uIU/mL} (Normal) Range: 0.450-4.500 99-Pip-904220:33 Microscopic Examination Comments: PATIENT WAS FASTINGPERFORMED BY: GnuBIO Vclljg5341 [facility] [id number] Bacteria Few (Normal) Mucus Threads Present (Normal) Cast Type Hyaline casts (Normal) Casts Present {/lpf} (Abnormal) Epithelial Cells (non renal) >10 {/hpf} (Abnormal) Range: 0 - 10 RBC 0-2 {/hpf} (Normal) Range: 0 - 2 WBC 11-30 {/hpf} (Abnormal) Range: 0 - 5 :57 HgA1C , Office (23035) Comments: 6.6 HgA1C , Office 6.6 % (Normal) Range: 4.6 - 7.1 :57 Blood Glucose , Office (99264) Blood Glucose , Office 211 (Normal) :53 HEPATIC FUNCTION PANEL Comments: PATIENT NOT FASTINGPERFORMED BY: GnuBIO [employer] [facility] [id number] (53683) ALT (SGPT) 13 [iU]/L (Normal) Range: 0-32 AST (SGOT) 17 [iU]/L (Normal) Range: 0-40 Alkaline Phosphatase, S 89 [iU]/L (Normal) Range: 39-117 Bilirubin, Direct 0.08 mg/dL (Normal) Range: 0.00-0.40 Bilirubin, Total <0.2 mg/dL (Normal) Range: 0.0-1.2 Albumin, Serum 4.2 g/dL (Normal) Range: 3.6-4.8 Protein, Total, Serum 6.8 g/dL (Normal) Range: 6.0-8.5 :53 PCOHG-YGMCBWGOVPI-ADLWH (31520) Comments: PATIENT NOT FASTINGPERFORMED BY: [employer] Kvgcyj0773 [facility] [id number] AFP, Serum, Tumor Marker 2.6 ng/mL (Normal) Range: 0.0-8.3 Comments: Vaxart ECLIA methodology :53 ALKALINE PHOSPHATASE-ISOENZYM Comments: PATIENT NOT FASTINGPERFORMED BY: [employer] Ukmaks8280 [facility] [id number] (77176) Intestinal Frac.: 5 % (Normal) Range: 0-18 Bone Fraction: 24 % (Normal) Range: 14-68 Liver Fraction: 71 % (Normal) Range: 18-85 50-Fet-952044:11 ALKALINE PHOSPHATASE-ISOENZYM Comments: PATIENT NOT FASTINGPERFORMED BY: CB [facility] Lidaqi0326 [address] RoadDublin [place] [id number] (31521) Intestinal Frac.: 3 % (Normal) Range: 0-18 Bone Fraction: 19 % (Normal) Range: 14-68 Liver Fraction: 78 % (Normal) Range: 18-85 Alkaline Phosphatase, S 122 [iU]/L (Abnormal) Range: 39-117 :11 CALCIFEDIOL (18990) Comments: PATIENT NOT FASTINGPERFORMED BY: CB [facility] Ckekkg8098 [address]ana RoadDublin [place] [id number] Vitamin D, 25-Hydroxy 37.5 ng/mL (Normal) Range: 30.0-100.0 Comments: Vitamin D deficiency has been defined by the [place] of[place]icine and an Endocrine Society practice guideline as alevel of serum 25-OH vitamin D less than 20 ng/mL (1,2).The Endocrine Society went on to further define vitamin Dinsufficiency as a level between 21 and 29 ng/mL (2).1. IOM ([place] of Medicine). 2010. Dietary reference intakes for calcium and D. [place]: The National Academies Press.2. Jacinto MF, Eddy NC, Quintin JAVED, et al. Evaluation, treatment, and prevention of vitamin D deficiency: an Endocrine Society clinical practice guideline. JCEM. 2010; 96(7):1911-30. 82-Jlx-531818:11 TSH (60128) Comments: PATIENT NOT FASTINGPERFORMED BY: CB [facility] Fhyzky4739 [address] RoadDublin [place] [id number] TSH 1.620 {uIU/mL} (Normal) Range: 0.450-4.500 74-Skd-723344:11 T4, FREE (THYROXINE) (20340) Comments: PATIENT NOT FASTINGPERFORMED BY: CB [facility] Xtfwqc2886 [address] RoadDublin [place] [id number] T4,Free(Direct) 1.00 ng/dL (Normal) Range: 0.82-1.77 89-Heo-230582:11 T3, FREE (TRIDOTHYRONINE) (77679) Comments: PATIENT NOT FASTINGPERFORMED BY: NEY [facility] Xoomnm9549 [facility] [id number] Triiodothyronine,Free,Serum 2.5 pg/mL (Normal) Range: 2.0-4.4 :08 HgA1C , Office (08587) HgA1C , Office 7.4 % (Abnormal) Range: 4.6 - 7.1 :08 Blood Glucose , Office (64042) Blood Glucose , Office 190 (Normal) :30 Lipid Profile Comments: Order Date: 12/12/16Order Info: 0788-1 - *Hepatic Function PanelOrder Info: 42838-1 - *Lipid Profile CC PCPComments: 12 hours fasting, may have water.Comments: 6 months / [facility] [address]jxcur[address] [place], [place], [address] VLDL 46 mg/dL (Abnormal) Range: 5-40 LDL [...] Info: 0788-1 - *Hepatic Function PanelOrder Info: 00222-4 - *Lipid Profile CC PCPComments: 12 hours fasting, may have water.Comments: 6 months / [facility] [address]zvnc[address] [place], [address] D BILI 0.11 mg/dL (Normal) Range: 0.00-0.30 [...] of Apr 09; PATIENT NOT FASTINGPERFORMED BY: Innolight SantanaStockpileUNC Health [id number] HORMONE) (49590) TSH 0.728 {uIU/mL} (Normal) Range: 0.450-4.500 :55 HgA1C , Office (86945) HgA1C , Office 6.9 % (Normal) Range: 4.6 - 7.1 :55 Blood Glucose , Office (70048) Blood Glucose , Office 143 (Normal) 23-Mtn-837071:11 Microscopic Examination Comments: PATIENT WAS FASTINGPERFORMED BY: [employer] [place] [facility] [id number] Bacteria Few (Normal) Mucus Threads Present (Normal) Cast Type Hyaline casts (Normal) Casts Present {/lpf} (Abnormal) Epithelial Cells (non renal) 0-10 {/hpf} (Normal) Range: 0 - 10 RBC 0-2 {/hpf} (Normal) Range: 0 - 2 WBC 6-10 {/hpf} (Abnormal) Range: 0 - 5 51-Qxk-086926:11 URINALYSIS, W/ MICRO (02453) Comments: January 2017; PATIENT WAS FASTINGPERFORMED BY: Innolight [facility] [id number] Microscopic Examination See below: (Normal) Comments: Microscopic was indicated and was performed. Nitrite, Urine Negative (Normal) Urobilinogen,Semi-Qn 0.2 mg/dL (Normal) Range: 0.2-1.0 Bilirubin Negative (Normal) Occult Blood Negative (Normal) Ketones Negative (Normal) Glucose Trace (Abnormal) Protein 1+ (Abnormal) WBC Esterase 1+ (Abnormal) Appearance Clear (Normal) Urine-Color Yellow (Normal) pH 6.5 (Normal) Range: 5.0-7.5 Specific [place] 1.016 (Normal) Range: 1.005-1.030 26-Gfv-220232:11 MICROALBUMIN: CREATININE RATIO Comments: January 2017; PATIENT WAS FASTINGPERFORMED BY: Mobimedia70 Strawberry energyUNC Health [id number] (01375) AND (42226) Microalb/Creat Ratio 208.2 {mg/g_creat} (Abnormal) Range: 0.0-30.0 Microalbumin, Urine 182.2 ug/mL (Normal) Creatinine, Urine 87.5 mg/dL (Normal) 43-Oyz-033452:11 CBC, Platelets & Auto Diff Comments: January 2017; PATIENT WAS FASTINGPERFORMED BY: AMEC6370 Strawberry energyUNC Health [id number] (65758) Immature Grans (Abs) 0.0 {x10E3/uL} (Normal) Range: [...] 3.77-5.28 WBC 5.6 {x10E3/uL} (Normal) Range: 3.4-10.8 69-Sdf-415275:11 Metabolic Panel, Comprehensive Comments: January 2017; PATIENT WAS FASTINGPERFORMED BY: [facility]CoCap[facility]Egtigu1138 [facility] [id number] (21172) ALT (SGPT) 13 [iU]/L (Normal) Range: 0-32 [...] Glucose, Serum 120 mg/dL (Abnormal) Range: 65-99 32-Egt-162374:11 TSH (THYROID STIMULATING Comments: January 2017; PATIENT WAS FASTINGPERFORMED BY: [facility] Heyesr3254 [facility] [id number] HORMONE) (35674) TSH 0.982 {uIU/mL} (Normal) Range: 0.450-4.500 1-Gwh-105095:02 Lipid Profile Comments: Order Date: 12/04/16Order Info: [id number] - *Hepatic Function PanelOrder Date: 12/04/16Order Info: 37688-6 - *Lipid Profile CC PCPComments: 12 hours fasting, may have water.[place] [address] [place], [place], [address] VLDL 36 mg/dL (Normal) Range: 5-40 LDL [...] 200-240 mg/dL Borderline >240 mg/dL High Risk 5-Ltg-030902:02 Liver Profile Comments: Order Date: 12/04/16Order Info: [id number] - *Hepatic Function PanelOrder Date: 12/04/16Order Info: 88880-1 - *Lipid Profile CC PCPComments: 12 hours fasting, may have water.[place] [address] [place], [place], [address] D BILI 0.07 mg/dL (Normal) Range: 0.00-0.30 T BILI 0.30 mg/dL (Normal) Range: 0.20-1.00 ALT 21 U/L (Normal) Range: 12-78 ALK P 112 U/L (Normal) Range: 45-117 AST 19 U/L (Normal) Range: 15-37 GLOB 3.8 g/dL (Abnormal) Range: 2.3-3.5 ALB 3.4 g/dL (Normal) Range: 3.4-5.0 T PROT 7.2 g/dL (Normal) Range: 6.4-8.2 72-Kdu-740688:29 URINE RANDELL CULTURE-ZEINAB COL Comments: PATIENT NOT FASTINGPERFORMED BY: BuldumBuldum.comCo Max[employer] [facility] [id number] Information: SRC:UC COUNT (72258) Result 1 MUG (Normal) Comments: Mixed urogenital flora25,000-50,000 colony forming units per mL Urine Final report (Normal) Culture,Comprehensive 32-Pug-494937:53 Urinalysis, Office (77971) UA - LEUKOCYTE ESTERASE Small (Normal) UA - NITRITE Negative (Normal) URINE UROBILINGN ZEINAB TIMED Normal mg/dL (Normal) UA - PROTEIN Negative mg/dL (Normal) UA - PH 7 (Normal) UA - BLOOD Negative (Normal) UA - SPECIFIC GRAVITY 1.020 (Normal) UA - KETONES Negative mg/dL (Normal) UA - BILIRUBIN Small (Normal) UA - GLUCOSE Negative (Normal) 60-Css-113500:51 Blood Glucose , Office (30949) Comments: 169 Blood Glucose , Office 169 (Normal) 49-Hbh-696093:52 HgA1C , Office (06891) Comments: 7.0 HgA1C , Office 7.0 % (Normal) Range: 4.6 - 7.1 :22 URINE RANDELL CULTURE-IDENTIFICATN Comments: PATIENT NOT FASTINGPERFORMED BY: [facility]Sqhipu1918 [facility] [id number] Information: SRC:UC (21502) Result 1 MUG (Normal) Comments: Mixed urogenital flora10,000-25,000 colony forming units per mL Urine Final report (Normal) Culture,Comprehensive 34-Lyh-332650:05 Urinalysis, Office (14691) UA - LEUKOCYTE ESTERASE Negative (Normal) UA - NITRITE Negative (Normal) URINE UROBILINGN ZEINAB TIMED Normal mg/dL (Normal) UA - PROTEIN 30 mg/dL (Normal) UA - PH 6 (Abnormal) UA - BLOOD non-hemolyzed trace (Normal) UA - SPECIFIC GRAVITY 1.020 (Normal) UA - KETONES Negative mg/dL (Normal) UA - BILIRUBIN Negative (Normal) UA - GLUCOSE 100 (Abnormal) :42 HgA1C , Office (69054) HgA1C , Office 6.2 % (Normal) Range: 4.6 - 7.1 :42 Blood Glucose , Office (26282) Blood Glucose , Office 137 (Normal) 0-Szo-706934:01 TSH (THYROID STIMULATING Comments: PATIENT NOT FASTINGPERFORMED BY: [facility]MicaUNC Health [id number] HORMONE) (21540) TSH 1.820 {uIU/mL} (Normal) Range: 0.450-4.500 :03 HEPATIC FUNCTION PANEL Comments: PATIENT NOT FASTINGPERFORMED BY: RedMicaUNC Health [id number] (83498) ALT (SGPT) 15 [iU]/L (Normal) Range: 0-32 AST (SGOT) 23 [iU]/L (Normal) Range: 0-40 Alkaline Phosphatase, S 95 [iU]/L (Normal) Range: 39-117 Bilirubin, Direct 0.12 mg/dL (Normal) Range: 0.00-0.40 Bilirubin, Total 0.3 mg/dL (Normal) Range: 0.0-1.2 Albumin, Serum 4.3 g/dL (Normal) Range: 3.6-4.8 Protein, Total, Serum 7.3 g/dL (Normal) Range: 6.0-8.5 :03 PWTWO-LKJJVITIXOX-YJNPX (08874) Comments: PATIENT NOT FASTINGPERFORMED BY: [facility]MicaUNC [facility] [id number] AFP, Serum, Tumor Marker 2.8 ng/mL (Normal) Range: 0.0-8.3 Comments: StratasanIA methodology 3-Ufm-436622:03 HEPATITIS PANEL (32224) Comments: PATIENT NOT FASTINGPERFORMED BY: [facility] Muljia[address] [facility] [id number] Hep C Virus Ab <0.1 {s/co_ratio} (Normal) Range: 0.0-0.9 Comments: Negative: < 0.8 Indeterminate: 0.8 - 0.9 Positive: > 0.9 . The CDC recommends that a positive HCV antibody result be followed up with a HCV Nucleic Acid Amplification test (831765). Hep B Core Ab, IgM Negative (Normal) HBsAg Screen Negative (Normal) Hep A Ab, IgM Negative (Normal) :58 CBC W/Diff, Automated Comments: CBCD FOR DR CHATMANJamaica [facility] [address] [place], [address] Absolute Lymph 1.84 {X10_3/ul} (Normal) Range: 0.83-4.51 [...] Comments: Order Date: 05/14/16Interface Comments: Reason:Order Date: 05/14/16[place] [address] [place], [place], [address] T4 THYROXIN 11.6 ug/dL (Normal) Range: 4.8-13.9 :58 Thyroid Stim Hormone (TSH) Comments: Order Date: 05/14/16Interface Comments: Reason:Order Date: 05/14/16[place] [address] [place], [address] TSH 1.96 {uIU/mL} (Normal) Range: 0.358-3.74 :11 Urinalysis, Office (37918) UA - LEUKOCYTE ESTERASE Small (Normal) UA - NITRITE Negative (Normal) URINE UROBILINGN ZEINAB TIMED Normal mg/dL (Normal) UA - PROTEIN 30 mg/dL (Normal) UA - PH 6 (Abnormal) UA - BLOOD Negative (Normal) UA - SPECIFIC GRAVITY 1.010 (Normal) UA - KETONES Negative mg/dL (Normal) UA - BILIRUBIN Negative (Normal) UA - GLUCOSE Negative (Normal) :50 Basic Metabolic Profile (BMP) Comments: [place] [address] [place], [place], [address] GAP 7 (Normal) Range: 5-15 CO2 33.0 [...] 100 mg/dL (Normal) Range: 70-110 :48 MAGNESIUM (46953) Comments: PATIENT NOT FASTINGPERFORMED BY: [id number] [facility] [id number] Magnesium, Serum 1.6 mg/dL (Normal) Range: 1.6-2.3 :48 TSH (THYROID STIMULATING Comments: PATIENT NOT FASTINGPERFORMED BY: [email or web address] [facility] [id number] [facility] [id number] HORMONE) (09553) TSH 6.340 {uIU/mL} (Abnormal) Range: 0.450-4.500 :48 URIC ACID BLOOD (01244) Comments: PATIENT NOT FASTINGPERFORMED BY: [email or web address] [facility] [id number] [facility] [id number] Uric Acid, Serum 6.1 mg/dL (Normal) Range: 2.5-7.1 Comments: Therapeutic target for gout patients: <6.0 :09 Blood Glucose , Office (65171) Blood Glucose , Office 116 (Normal) :09 HgA1C , Office (09807) HgA1C , Office 6.7 % (Normal) Range: 4.6 - 7.1 :19 Basic Metabolic Profile (BMP) Comments: Order Date: 03/12/16OV Order #: [id number] [address] [place], [address] GAP 7 (Normal) Range: 5-15 CO2 29.0 [...] 7-18 GLU 107 mg/dL (Normal) Range: 70-110 :19 T4 Total, Thyroxin Comments: Order Date: 03/12/16 Order #: [id number] [address] [place], [place], [address] T4 THYROXIN 9.4 ug/dL (Normal) Range: 4.8-13.9 :19 Thyroid Stim Hormone (TSH) Comments: Order Date: 03/12/16 Order #: [id number] [address] [place], [place], [address](459) TSH 5.44 {uIU/mL} (Abnormal) Range: 0.358-3.74 51-Ksd-187863:49 Aerobic Bacterial Culture Comments: PATIENT NOT FASTINGPERFORMED BY: [facility] [id number] [facility] [id number] Information: RT AXILLA Result 1 MRSA (Abnormal) [...] Negative (Normal) Comments: PATIENT NOT FASTINGPERFORMED BY: CB [facility] [id number] [place] [id number] Information: NASAL 5:49 Culture 07-Nim-003818:20 Basic Metabolic Profile (BMP) Comments: [facility] [address] [place], [address] GAP 7 (Normal) Range: 5-15 CO2 29.0 [...] A.D.A. criteria. :02 Blood Glucose , Office (12470) Blood Glucose , Office 137 (Normal) :54 Urine Drug Screen (Office - WNL (Normal) Comments: pos for oxy, all else neg Urine Drug Screen 6 Panel) Comments: All negative except Oxy (53858) :52 HgA1C , Office (01873) Comments: 7.3 HgA1C , Office 7.3 % (Abnormal) Range: 4.6 - 7.1 7-Wzc-720889:43 Basic Metabolic Profile (BMP) Comments: [facility] URBINA ORDERED BMPDR [facility] DOTHANISPAW ORDERED LIVER LIPIDCenterville [address] [place], [address] GAP 3 (Abnormal) Range: 5-15 CO2 33.0 mmol/L (Abnormal) Range: 21.0-32.0 CL 102 mmol/L (Normal) Range: 98-107 K 3.4 mmol/L (Abnormal) Range: 3.5-5.1 Comments: ADDENDA: Denisse at [facility] aware of potassium level NA 138 mmol/L [...] 7-18 GLU 101 mg/dL (Normal) Range: 70-110 7-Llc-379904:43 Lipid Profile Comments: DR URBINA ORDERED BMPDR MOODISPAW ORDERED LIVER LIPIDCent[place] [address] [place], [place], [id number] VLDL 26 mg/dL (Normal) Range: 5-40 LDL [...] 200-240 mg/dL Borderline >240 mg/dL High Risk 7-Hhu-867644:43 Liver Profile Comments: DR URBINA ORDERED BMPDR MOODISLEANN ORDERED LIVER LIPIDWKind[facility] [address] [place], [place], [address] D BILI 0.14 mg/dL (Normal) Range: 0.00-0.30 T BILI 0.40 mg/dL (Normal) Range: 0.20-1.00 ALT 16 U/L (Normal) Range: 12-78 ALK P 112 U/L (Normal) Range: 50-136 AST 19 U/L (Normal) Range: 15-37 GLOB 3.9 g/dL (Abnormal) Range: 2.3-3.5 ALB 3.0 g/dL (Abnormal) Range: 3.4-5.0 T PROT 6.9 g/dL (Normal) Range: 6.4-8.2 4-Ern-322081:02 Blood Glucose , Office (66038) Blood Glucose , Office 160 (Normal) 41-Ubn-503138:37 HgA1C , Office (23902) Comments: 7.2 HgA1C , Office 7.2 % (Abnormal) Range: 4.6 - 7.1 24-Zdb-348179:24 MRSA Culture (13230) Comments: [facility] [address] [place], [place], [address] MRSA RESULT Negative (Normal) 2-Vsn-900305:59 Metabolic Panel, Basic Comments: send to Dr.Masroor Urbina; PATIENT NOT FASTINGPERFORMED BY: [facility]CoGu[facility] HospitalJckhap5829 [facility] [id number] Information: [id number] (06092) Calcium, Serum 10.7 mg/dL (Abnormal) Range: 8.7-10.3 [...] Glucose, Serum 182 mg/dL (Abnormal) Range: 65-99 7-Ybh-108093:09 MRSA Culture (46294) Comments: [facility] [address] [place], [address] MRSA RESULT POSITIVE (Abnormal) :39 Lipid Profile Comments: [facility] [address] [place], [address] VLDL 23 mg/dL (Normal) Range: [...] mg/dL High Risk :39 Liver Profile Comments: [facility] [address] [place], [address] ; non-emergent and handled by [...] Range: 6.4-8.2 :39 T4 Total, Thyroxin Comments: [facility] [address] [place], [place], [id number] T4 THYROXIN 10.9 ug/dL (Normal) Range: 4.8-13.9 :39 Thyroid Stim Hormone (TSH) Comments: [facility] [address] [place], [place], [id number] TSH 3.63 {uIU/mL} (Normal) Range: 0.358-3.74 0-Npa-717878:13 LIPID PANEL (19783) Comments: PATIENT WAS FASTINGPERFORMED BY: [facility] Phnbxy6830 [facility] [id number] LDL/HDL Ratio 1.2 {ratio_units} (Normal) Range: 0.0-3.2 [...] Cholesterol, Total 160 mg/dL (Normal) Range: 100-199 8-Cwc-894673:13 CBC W/AUTO DIFF WBC Comments: PATIENT WAS FASTINGPERFORMED BY: LabCoDEONTICSGvsalb7934 [facility] [id number] Information: [id number] ([id number]) Immature Grans (Abs) 0.0 {x10E3/uL} (Normal) Range: [...] 3.77-5.28 WBC 4.5 {x10E3/uL} (Normal) Range: 3.4-10.8 5-Cto-829172:13 METABOLIC PANEL, COMPREHENSIVE Comments: PATIENT WAS FASTINGPERFORMED BY: [facility]Ozyrqu5660 [facility] [id number] ([id number]) ALT (SGPT) 8 [iU]/L (Normal) Range: 0-32 [...] Glucose, Serum 109 mg/dL (Abnormal) Range: 65-99 9-Pwd-243756:15 Basic Metabolic Profile (BMP) Comments: [facility] [address] [place], [place], [address] GAP 7 (Normal) Range: 5-15 CO2 30.0 [...] 200 mg/dLsuggests DIABETES MELLITUS per A.D.A. criteria. 8-Ddf-935387:15 CBC W/Diff, Automated Comments: [facility] [address] [place], [place], [address] Absolute Lymph 0.95 {X10_3/ul} (Normal) Range: 0.83-4.51 [...] 4.2-5.4 WBC 5.4 K/mm3 (Normal) Range: 4.4-11.0 98-Bjc-022423:31 LIPID PANEL (47069) Comments: PATIENT WAS FASTINGPERFORMED BY: [facility]Co[facility]Dhmoox7299 [facility] [id number]; non-emergent till apt LDL/HDL Ratio 1.6 {ratio_units} [...] auto diff Comments: PATIENT WAS FASTINGPERFORMED BY: [facility]Co[facility]Lyffrl4501 [facility] [id number] Information: [id number] (63049) Immature Grans (Abs) 0.0 {x10E3/uL} (Normal) Range: [...] CREATININE RATIO Comments: PATIENT WAS FASTINGPERFORMED BY: [facility]BIOCap[facility])Szjeau3108 [facility] [id number] (18822) AND (13976) Microalb/Creat Ratio 93.7 {mg/g_creat} (Abnormal) Range: 0.0-30.0 Microalbumin, Urine 196.4 ug/mL (Abnormal) Range: 0.0-17.0 Creatinine, Urine 209.7 mg/dL (Normal) Range: 15.0-278.0 88-Fcr-758092:31 METABOLIC PANEL, COMPREHENSIVE Comments: PATIENT WAS FASTINGPERFORMED BY: Secrette6370 [facility] [id number] ([id number]) ALT (SGPT) 20 [iU]/L (Normal) Range: 0-32 [...] Glucose, Serum 120 mg/dL (Abnormal) Range: 65-99 72-Jnp-650123:31 Hemoglobin Glyclated (HGB A1C) Comments: PATIENT WAS FASTINGPERFORMED BY: [facility] Kqjrwo0470 [facility] [id number] ([id number]) Hemoglobin A1c 7.6 % (Abnormal) Range: 4.8-5.6 Comments: . Pre-diabetes: 5.7 - 6.4 Diabetes: >6.4 Glycemic control for adults with diabetes: <7.0 27-Hrn-998623:30 Urinalysis, Complete Comments: Order Date: 07/18/15How was Urine Obtained? CLEAN [facility] [address] [facility] [place], [address] MUCUS, URINE 0 SEEN {/hpf} (Normal) BACTERIA [...] (Abnormal) CLARITY Clear (Normal) COLOR Yellow (Normal) 28-Gpw-586833:43 CBC W/Diff, Automated Comments: [facility] [address] [facility] [place], [address] PATH REV May foll (Normal) SMEAR COMMENT [...] 4.2-5.4 WBC 15.1 K/mm3 (Abnormal) Range: 4.4-11.0 38-Cqr-842248:43 Comprehensive Metabolic Profil Comments: [facility] [address] [place], [place], [address] GAP 8 (Normal) Range: 5-15 CO2 33.0 [...] 200 mg/dLsuggests DIABETES MELLITUS per A.D.A. criteria. 77-Amm-294176:43 Lactic Acid Comments: Comments: To be drawn 6H after initial specimenWKindred Hospital Lima [address] [place], [place], [phone](923) LACTIC ACID 1.7 mmol/L (Normal) Range: 0.4-2.0 04-Tnb-707688:43 Magnesium Comments: [facility] [address] [place], [address] MG 1.3 mg/dL (Abnormal) Range: 1.8-2.4 04-Ebx-976500:43 Partial Thromboplast Time Comments: [facility] [address] [place], [address] PTT 31.4 s (Normal) Range: 24.1-36.2 59-Npr-138227:43 Phosphorus Comments: [facility] [address] [place], [address] PHOS 1.0 mg/dL (Abnormal) Range: 2.5-4.9 Comments: Critical Result(s) Called at: 17:06:16 07/18/2015 by:Stacey roger to malia ibarra 50-Gpd-256354:43 Prothrombin Time w/INR Comments: [facility] [address] [place], [place], [address] INR 0.9 (Normal) PROTIME 12.8 s (Normal) Range: 11.7-14.9 Plan of Care Name Dates Details Instructions Hypertensive heart disease without heart failure : Follow up in 3 months Indication: Hypertensive heart disease without heart failure Uncontrolled diabetes mellitus : Eprescribed prescriptions (G8553) Indication: Uncontrolled diabetes mellitus BMI 31.0-31.9,adult : Eprescribed prescriptions (G8553) Indication: [...] with abnormal findings in adult : Reviewed Teacher'S Aide Letter Indication: Encounter for annual general medical [...] mellitus type 2, insulin dependent Planned Observations CBC, PLATELETS & AUT DIFF (77847)Indication: Elevated WBC count On: 04-Aug-20187:59 Request Cologuard - Strool Based DNA Test, CRC SCREEN (32135)Indication: Encounter for screening for malignant neoplasm of colon (Renamed from Special screening for malignant neoplasms, colon) On: 76-Taa-910498:05 Request FECAL OCCULT- Tubes sent home (17191)Indication: Encounter for screening for malignant neoplasm of colon (Renamed from Special screening for malignant neoplasms, colon) On: 65-Nxk-398094:09 Request Lipid Panel (80782)Indication: Diabetes mellitus type 2, insulin dependent On: 68-Qog-065158:08 Request Comments: around January Metabolic Panel, Comprehensive (60008)Indication: Diabetes mellitus type 2, insulin dependent On: 31-Kxa-552975:08 Request Comments: around January CBC, Platelets & Auto Diff (14275)Indication: Diabetes mellitus type 2, insulin dependent On: 01-Rzi-776216:08 Request Comments: around January TSH (92566)Indication: Diabetes mellitus type 2, insulin dependent On: 40-Yca-922749:08 Request Comments: around January Rapid Flu (81280 x 2)Indication: Unspecified Diagnosis On: 29-Vkx-23363:33 Request CBC & PLATELETS (AUTO) (91856)Indication: Abdominal pain On: 1-Zao-260032:57 Request CULTURE, NOSE (93883)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 On: 04-Llk-506346:31 Request Comments: check for MRSA MRSA Culture (23615)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 On: 03-Wzx-470306:23 Request Comments: rt axila HgA1C , Office (83091)Indication: Diabetes mellitus type 2, insulin dependent On: 49-Yew-859016:21 Request Urinalysis, Office (10405)Indication: History of MRSA infection On: 82-Aph-257738:42 Request Hemoglobin Glyclated (HGB A1C) (92718)Indication: Diabetes mellitus type 2, uncontrolled On: 22-Erj-680555:46 Request MICROALBUMIN: CREATININE RATIO (86219) AND (15654)Indication: Hypertensive heart disease without heart failure On: 65-Ual-997575:46 Request Planned Encounters Medical; 3 Month FU - On: 28-Oct-2018 13:45 [facility] Elsa Chopra CNP, CNP, Mary E Planned Procedures CHEST XRAY, PA & LATERAL (16385)By: On: 29-Jul-2018 Intent Elsa Chopra CNP, CNP, Mary E Overnight Pulse OX (81469)By: On: 30-Jun-2018 Intent Lee Ann Schafer DO SPIROMETRY PERFORMED (86030)By: On: 25-Jun-2018 Intent Visit, Nurse SPIROMETRY PERFORMED (26333)By: On: 25-Jun-2018 Intent Visit, Nurse SIX MINUTE WALK TEST (04056)By: On: 25-Jun-2018 Intent Visit, Nurse Flu Vaccine (Quadrivalent) 80089Kf: On: 20-May-2018 Intent Karly Chandra DEXA SCAN AXIAL SKELETON (34263)By: On: 18-Dec-2017 Intent Elsa Chopra CNP, CNP, Mary E SCREENING DIGITAL TOMOSYNTHESIS OF On: 18-Dec-2017 Intent BREAST (87688)By: Elsa Chopra CNP, CNP, Mary E Flu Vaccine (Quadrivalent) 87488Oz: On: 11-Jun-2017 Intent Elsa Chopra CNP, CNP, Mary E Comments: InfluenzaLot #[id number]-L dltd, IMDose prefilled syringeVIS and ABN signedgiven by:GENARO blackwood PHYSICAL THERAPY TREATMENT On: 11-Dec-2016 Intent (82325)By: Adelita Doshi LPN PHYSICAL THERAPY EVALUATION On: 11-Dec-2016 Intent (37132)By: Elsa Chopra CNP, CNP, Mary E Toradol Injection, 30 mg On: 10-Dec-2016 Intent ([id number])By: Elsa Chopra CNP, CNP, Mary E Radiology - Hip - RightBy: Nav On: 10-Dec-2016 Intent Elsa MCKINLEY CNP, Mary E Aerosol Treatment (34776)By: Tico On: 16-Oct-2016 Intent Adelita LAM Flu Vaccine (Quadrivalent) [id number]: On: 11-Jul-2016 Intent Elsa Chopra CNP, CNP, Mary E Comments: FLUlot: [id number]:01/16site:Lt deltoidroute:IMdose:.5mlBHAVNA SHAW Ultrasound - Abdomen CompleteBy: On: 03-Jul-2016 Intent Elsa Chopra CNP, CNP, Mary E Radiology - KUBBy: Elsa Chopra CNP On: 03-Jul-2016 Intent Elsa العلي CNP DRAIN/INJECT SMALL JOINT OR BURSA On: 18-May-2016 Intent ()By: Elsa Chopra CNP Comments: to left wrist joint 1/2 cc cuca, 1/2 cc george. Luisalog lot [id number] exp Marcain lot [id number] ex Elsa MCKINLEY MAMMOGRAM, SCREENING, BOTH BREAST On: 11-May-2016 Intent ([id number])By: Elsa Chopra CNP, CNP, Mary E Radiology - Chest- PA and LatBy: On: 23-Aug-2015 Intent Gautam DOMadeline Comments: 4 weeks Radiology - Chest- PA and LatBy: On: 25-Jul-2015 Intent Gautam DOMadeline Comments: 3 weeks Planned Medications INJECTION, KETOROLAC TROMETHAMINE, PER 15 MG Ordered: 10-Dec-2016 Pending Elsa Chopra CNP, CNP, Mary E Instructions Name Dates Details Uncontrolled diabetes mellitus : How to access health information online Indication: Uncontrolled diabetes mellitus Uncontrolled diabetes mellitus : How to access health information online - Detail Indication: Uncontrolled diabetes mellitus Uncontrolled diabetes mellitus : Patient Instructions Indication: Uncontrolled diabetes mellitus BMI 31.0-31.9,adult : How to access health [...] mellitus without complication) : DISCONTINUED - URINALYSIS (33060) Indication: Diabetes mellitus type II, controlled, with no complications (Renamed from Controlled type 2 diabetes mellitus without complication) CKD (chronic kidney disease), stage III : DISCONTINUED - MICROALBUMIN: CREATININE RATIO (25098) AND (14245) Indication: CKD (chronic kidney disease), stage III Diabetes mellitus type II, controlled, with no complications (Renamed from Controlled type 2 diabetes mellitus without complication) : DISCONTINUED - CBC, PLATELETS & AUT DIFF (80487) Indication: Diabetes mellitus type II, controlled, with no complications (Renamed from Controlled type 2 diabetes mellitus without complication) Diabetes mellitus type II, controlled, with no complications (Renamed from Controlled type 2 diabetes mellitus without complication) : DISCONTINUED - METABOLIC PANEL, COMPREHENSIVE (15519) Indication: Diabetes mellitus type II, controlled, with no complications (Renamed from Controlled type 2 diabetes mellitus without complication) Diabetes mellitus type II, controlled, with no complications (Renamed from Controlled type 2 diabetes mellitus without complication) : DISCONTINUED - TSH (76614) Indication: Diabetes mellitus type II, controlled, with [...] dependent : DISCONTINUED - METABOLIC PANEL, BASIC (31878) Indication: Diabetes mellitus type 2, insulin dependent [...] Diabetes mellitus type 2, insulin dependent Encounters Lab Order On: 04-Aug-2018 7:57 Encounter Diagnosis: Elevated WBC count End: 04-Aug-2018 7:59 [facility] Phone Encounter On: 29-Jul-2018 16:21 Encounter Diagnosis: Sarcoidosis of other site End: 29-Jul-2018 16:26 [facility] Phone Encounter On: 28-Jul-2018 16:56 Encounter Diagnosis: Unspecified Diagnosis End: 28-Jul-2018 17:04 [facility] Office Visit On: 28-Jul-2018 13:24 Encounter Reason: Follow up for chronic medical issues - The patient feels well with minor complaints (getting over cold), has decreased energy level and is sleeping poorly. Patient has been compliant with instructions. End: 28-Jul-2018 14:08 Current medication use: no side effects, compliant with dosing regimen and considered effective by patient. Patient sleeps 3 hours per night. Nutrition: inappropriate diet. The medical issues the patien t is following up for include blood sugar issues, cardiac issues (chf), COPD, high cholesterol and other (migraines). fasting blood sugars : (110-120).Encounter Diagnosis: Uncontrolled diabetes mellitus, Nonsmoker, BMI 31.0-31.9,adult, History of sarcoidosis, CKD (chronic kidney disease), stage III, Excessive sweating, local, COPD (chronic obstructive pulmonary disease), Hypertensive heart disease without heart failure, Hypercalcemia [facility] Office Visit On: 30-Jun-2018 9:32 Encounter Diagnosis: [...] patient does not have durable power of elementary school counselor or living will. The patient has noticed getting bored, poor spirits most of time and lack of energy. Other providers contributing to the lyndsey bolton's care are assembly adjuster () and urologist (). Note for Annual [...] and is sleeping poorly. Patient has been Whitepages End: 18-Dec-2017 14:15 pliant with instructions. Current [...] and is sleeping poorly. Patient has been Whitepages End: 18-Sep-2017 13:50 pliant with instructions. Current [...] any known injury. The patient is ri t hand dominant. The injury involved the left [...] - Reason for ER visit: note: (surgery [facility]. ). The patient feels well with [...] MRSA. She has had pre-op testing at [facility] on 10-14-2015, for Lumbar microdecompression for 10-24-2015 Blood work. 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 Dahl for papers to be signed [...] 19-Jul-2015 22:21 - sharp pain- went to [facility] ER). Current medication use: no side effects [...] surgeon- - recently went to er at [facility] on jul 14 - she was having [...]
--- OUTSIDE RECORDS SUMMARY | 2018-09-25 14:33 | XMS RPT_ITS | Continuity of Care Document ---
:1950 Author Organization [facility] Address [facility] [address] [place] [address] Phone Care Team Providers Name Role Phone Nav ARLENElsa Unavailable Malcolm STANLEY, Casey Florian Unavailable Linden DO , Dr. Aaron Diaz Unavailable John WestfallAnnalisa lynne Unavailable Dr. Abimael Ag Unavailable Kirby STANLEY, Jared Galeano Unavailable Pascale Boston Unavailable Tcio CREDIT REVIEW MANAGER, Adelita Unavailable Unavailable Karly Chandra Unavailable Unavailable Remington Oviedo Unavailable Unavailable Long CREDIT REVIEW MANAGER, Dora Orantes Unavailable Unavailable Trina Sorenson Unavailable [...] 585.3) Comments: follows with Dr. Munguia in [place], seen for sarcoidosis currently, stableGFR 40 Status: [...] on wean of steroid Scale 201-250. 5 ptydq645-059 8 biaji909-925 10 -839 12 units>401 15 unitsad ding metformin not [...] given in L arm subcutaneously paitent tolerated wellLOT#[id number]#2020 NOV 06 Status: Active Postmenopausal (Renamed from Postmenopausal status) (Z78.0, V49.81) Status: Active Pregnancies () Comments: 1. 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 Synthroid 50 MCG Oral Tablet 1 (one) Tablet daily except Sundays and Tuesdays for 0 days Quantity: 30 {Tablet} Refills: 3 Ordered:27-May-2018 Nav MCKINLEY Elsa Hinton CNP Start : 27-May-2018 Active Comments:generic only UNISOM, 25MG (Oral Tablet) 2 (two) Tablet Tablet q hs for 30 days Quantity: 60 {Tablet} Refills: 0 Ordered:25-Jul-2015Madeline Start : 18-Jul-2015 Active VITAMIN D3, 07098CEKS (Oral Capsule) 1 (one) Capsule Capsule once [...] Quantity: 1 {Vial} Refills: 6 Ordered:07-Feb-2016 Nav DATA PROCESSING CLERK, Elsa Reyes DATA PROCESSING CLERK, Elsa Luke Start : 03-Oct-2015 End : 07-Feb-2016 Discontinued LEVEMIR, 100UNIT/ML (Subcutaneous Solution) 20 Solution units each morning for 30 days Quantity: 1 {Vial} Refills: 6 Ordered:20-Jan-2016 Adelita Doshi LPN Start : 21-Oct-2015 End : 20-Jan-2016 Discontinued MACROBID, 100MG (Oral Capsule) q12hrs (100 MG) End : 05-Aug-2015 Discontinued Comments:[facility] MUPIROCIN, 2% (External Ointment) 1 [...] Quantity: 60 {QS} Refills: 0 Ordered:18-Dec-2017 Slarb CREDIT REVIEW MANAGER, Adelita Start : 03-Jul-2016 End : 18-Dec-2017 Discontinued PredniSONE 10 MG Oral Tablet 1 (one) Tablet bid x 3 days, then 1 daily x 3 days,then 1/2 daily x 3 for 0 days Quantity: 12 {Tablet} Refills: 0 Ordered:19-Nov-2016 Slarb CREDIT REVIEW MANAGER, Adelita Start : 16-Oct-2016 End : 19-Nov-2016 Discontinued Comments:with food PredniSONE 5 MG Oral Tablet 1 (one) Tablet Tablet qod for 0 days Quantity: 60 {Tablet} Refills: 11 Ordered:12-Mar-2016 Slarb CREDIT REVIEW MANAGER, Adelita Start : 20-Jan-2016 End : 12-Mar-2016 Discontinued Comments:Per Ciara Avila Perles 100 MG Oral Capsule 1 (one) Capsule tid prn for 0 days Quantity: 30 {Capsule} Refills: 0 Ordered:19-Nov-2016 Slarb CREDIT REVIEW MANAGER, Adelita Start : 16-Oct-2016 End : 19-Nov-2016 Discontinued Vancomycin HCl End : 05-Aug-2015 Discontinued Comments:1,250mg IV q24hrs x 54wsvj4,500mg IV q24hrs #14 Allergies and Adverse Reactions [...] Comments: was seeing Dr. Munguia's partner in [place] Dr. Morel, gfr 43%, has proteinuria Status: [...] and Lateral Result: Comments: See Note; NOTES: [facility] Imaging Services [address] [place] [address] Chest PA and Lateral MR#: [id number] Acct: [id number] Name: SHREYAS KATHLEEN Rep #: [id number] : 1950 F 68 From: Blane Shelley MD PCP: Elsa Chopra NP Status: REG CLI Study: Chest PA and Lateral Date of Exam: 07/31/18 Exam# [id number] Ordering Dr: Elsa Chopra ANIMAL TECHNICIAN-C HISTORY: HX OF SARCOI DOSIS EXAM: XR [...] Service support , CC: Elsa Chopra NP Nuisance Wildlife Control Operator: Signed 17-Feb-2018 Cardiology Visit Report Result: Comments: See Note; NOTES: [facility] [address] [place] [address] OFFICE VISIT Date of Service: 02/17/18 MR#: [id number] Acct: [id number] Name: SHREYAS KATHLEEN Rep #: [id number] : 1950 Provider: Casey Fowler MD Age/Sex: 67/F Location: [facility] [place] [facility] Status: Signed HPI HPI Details: SHREYAS KATHLEEN, is a 67 F who presents to the office today for for outpatien t cardiovascular follow-up of her history of underlying CAD, non-ST segment elevation AL, paroxysmal atrial fibrillation, superimposed upon a history [...] PFSH Medical History Atherosclerotic heart disease of [place] coronary artery without angina pectoris (Chronic) History [...] stenosis Assessment AND Plan 1. Atherosclerosis of [place] coronary artery of [place] heart without angina pectoris I25.10 Mild Plan [...] be scheduled for an outpatient visit in [facility] 9 months unless needed sooner. Thank you for allowing me to participate in the care of your patient. Please don't hesitate to call if any issues arise. This note was generated using a voice [employer] system and there may be incorrect words, spelling or punctuation that were not noted when reviewing the office note prior to saving. Follow Up 9 Months Coding Level of Care Code Off vis,est,leve l 4 Diagnoses Atherosclerosis of [place] coronary artery of [place] heart without angina pectoris I25.10 Inupiat vs. transplanted heart: [place] heart Paroxysmal atrial fibrillation I48.0 Hyperlipidemia, u nspecified hyperlipidemia type E78.5 Hyperlipidemia type: unspecified Essential hypertension I10 Hypertension type: essential hypertension Long-term use of high-risk medication Z79.899 Coding Level of Care Code Off vis,est,level 4 Diagnoses Atherosclerosis of [place] coronary artery of [place] heart without angina pectoris I25.10 Inupiat vs. transplanted heart: [place] heart Paroxysmal atrial fibrillat ion I48.0 Hyperlipidemia, unspecified hyperlipidemia type E78.5 Hyperlipidemia type: unspecified Essential hypertension I10 Hypertension type: essential hypertension Long-term use of high-risk medicatio n Z79.899 02/17/18 1530 <Electronically signed by Casey Fowler MD> Date Casey Fowler MD Cosigner Signature: Date _ (if applicable) CC: Elsa Chopra NP 14-Feb-2018 SCREENING MAMM (CAD), BILAT Result: Comments: See Note; NOTES: [facility] Imaging Services [address] [place] [address] SCREENING MAMM (CAD), BILAT MR#: [id number] Acct: [id number] Name: SHREYAS KATHLEEN Rep #: [id number] : 1950 F 67 From: Elias Finn MD PCP: Elsa Chopra NP Status: REG CLI Study: SCREENING MAMM (CAD), BILAT Date of Exam: 02/14/18 Exam# [id number] Ordering Dr: Elsa Chopra MAMMO GRAPHY - [...] these results will be sent to the [facility] nt by the facility within 30 days. Approximately 10% of breast cancers are not detected by mammography. A normal mammogram should not delay biopsy of a clinically suspicious abnormality. [id number] Elect ronically Signed: Elias Finn MD at 8:30 EDT Tel [phone], Service support , CC: Elsa Chopra NP Nuisance Wildlife Control Operator: Signed 21-Jan-2018 Dexa Bone Density Study Result: Comments: See Note; NOTES: [facility] Imaging Services [address] [place] [address] Dexa Bone Density Study MR#: [id number] Acct: [id number] Name: SHREYAS KATHLEEN Rep #: [id number] : 1950 F 67 From: Elias Finn MD PCP: Elsa Chopra NP Status: REG CLI Study: Dexa Bone Density Study Date of Exam: 01/21/18 Exam# [id number] Ordering Dr: Elsa Chopra STUDY: DUAL E [...] Elias Finn MD at 15:36 EDT Tel [phone], Service support , CC: Elsa Chopra NP Nuisance Wildlife Control Operator: Signed 10-Dec-2016 Hip 2-3 Views with Pelvis Result: Comments: See Note; NOTES: [facility] Imaging Services [address] [place] [address] Verdana 4d Hip 2-3 Views with Pelvis MR#: [id number] Acct: [id number] Name: SHREYAS KATHLEEN Rep #: [id number] : 1950 F 66 From: Herve Jimenez MD PCP: Elsa Chopra Status: REG CLI Study: Hip 2-3 Views with Pelvis Date of Exam: 12/10/16 Exam# [id number] Ordering Dr: Elsa Chopra STUDY : X-RAY [...] FACR at 11:31 EDT , Service support [phone], CC: Elsa Chopra Nuisance Wildlife Control Operator: Signed 05-Jul-2016 Abdomen Complete Result: Comments: See Note; NOTES: [facility] Imaging Services [address] [place] [address] Verda 4d Abdomen Complete MR#: [id number] Acct: [id number] Name: SHREYAS KATHLEEN Keira Rep #: [id number] : 1950 F 66 From: Elias Finn MD PCP: Elsa Chopra Status: REG CLI Study: Abdomen Complete Date of Exam: 07/05/16 Exam# [id number] Ordering Dr: Elsa Chopra STUDY: ABDOMINAL ULTRASOUND [...] Elias Finn MD at 9:35 EDT Tel [phone], Service support [phone], CC: Elsa Chopra Nuisance Wildlife Control Operator: Signed 05-Jul-2016 Abdomen Single View Result: Comments: See Note; NOTES: [facility] Imaging Services [address] [place] [address] Verdana 4d Abdomen Single View MR#: [id number] Acct: [id number] Name: SHREYAS KATHLEEN Rep #: [id number] : 1950 F 66 From: Elias Finn MD PCP: Elsa Chopra Status: REG CLI Study: Abdomen Single View Date of Exam: 07/05/16 Exam# [id number] Ordering Dr: Elsa Chopra STUDY: X-RA Y [...] of the L1 vertebrae. ORDER # : [id number] RAD/Abdomen Single View IMPRESSION: Moderate amount of fecal material is seen in the colon. Electronically Signed: Elias Finn MD at 10:34 EDT Tel [phone], Service sup port [phone], CC: Elsa Chopra Nuisance Wildlife Control Operator: Signed 18-May-2016 Bilat Scrn Digital AND CAD Result: Comments: See Note; NOTES: [facility] Imaging Services [address] [place] [address] Verdana 4d Bilat Scrn Digital AND CAD MR#: [id number] Acct: [id number] Name: HEVERJACINTO Crockett Rep #: [id number] : 1950 F 65 From: Elias Finn MD PCP: Elsa Chopra Status: REG CLI Study: [place] Digital AND CAD Date of Exam: 05/18/16 Exam# [id number] Ordering Dr: Elsa Chopra MAMMOGRAPHY - BILATERAL [...] no significant change since the prior study. [facility]/Ridge Rosales Digital AND CAD IMPRESSION: Stab le bilateral screening mammogram. Yearly follow-up mammogram recommended. (A) ASSESSMENT CATEGORY: BIRADS Category 1: Negative. A letter regarding these results yane l be sent to the patient by the facility within 30 days. Approximately 10% of breast cancers are not detected by mammography. A normal mammogram should not delay biopsy of a clinically suspicious abnor mality. [id number] Electronically Signed: Elias Finn MD at 12:53 EDT Tel [phone], Service support [phone], CC: Elsa Chopra Nuisance Wildlife Control Operator: Signed 14-Feb-2016 Shoulder min 2 Views Result: Comments: See Note; NOTES: [facility] Imaging Services [address] [place] [address] Verdana 4d Shoulder min 2 Views MR#: [id number] Acct: [id number] Name: SHREYAS KATHLEEN Rep #: [id number] : 1950 F 65 From: Herve Jimenez MD PCP: Madeline Florez DO Status: REG CLI Study: Shoulder min 2 Views Date of Exam: 02/14/16 Exam# [id number] Ordering Dr: Pascale Boston DO STUDY: X-RAY [...] FACR at 14:50 EDT , Service support [phone], Fax RAD/Shoulder min 2 Views IMPRESSION: Bilateral of the acromioclavicular joint, otherwise normal x-ray examination of the shoulder. Electronically Signed: Herve Jimenez MD, FACR at 14:50 EDT , Service support [phone], CC: Pascale Boston DO; Madeline Florez DO Nuisance Wildlife Control Operator: Signed 21-Oct-2015 Spirometry (97763) Comments: mod restriction Result: 19-Sep-2015 Chest PA and Lateral Result: Comments: See Note; NOTES: [facility] Imaging Services [address] [place] [address] Nidiadana 4d Chest PA and Lateral MR#: [id number] Acct: [id number] Name: SHREYAS KATHLEEN Rep #: [id number] : 1950 F 65 From: Elias Finn MD PCP: Madeline Florez DO Status: REG CLI Study: Chest PA and Lateral Date of Exam: 09/19/15 Exam# [id number] Ordering Dr: Madeline Florez DO STUDY: X-RAY [...] Elias Finn MD at 13:58 EST Tel [phone], Service support [phone], RAD/Chest PA and Lateral IMPRESSION: Stable examination. No acute abnormality is seen. Electronically Doris d: Elias Finn MD at 13:58 EST Tel [phone], Service support [phone], CC: Madeline Florez DO Nuisance Wildlife Control Operator: Signed 25-Aug-2015 Spine Lumbar (Routine) Result: Comments: See Note; NOTES: [facility] Imaging Services [address] [place] [address] Verdavinayak 4d Spine Lumbar (Routine) MR#: [id number] Acct: [id number] Name: SHREYAS MAJOR Rep #: [id number] : 1950 F 65 From: Herve Jimenez MD PCP: Madeline Florez DO Status: REG CLI Study: Spine Lumbar (Routine) Date of Exam: 08/25/15 Exam# [id number] Ordering Dr: ELIZABETH DE LEON M.D. STUDY: [...] FACR at 17:43 EST , Service support [phone], CC: ELIZABETH DE LEON M.D.; Madeline Florez DO Nuisance Wildlife Control Operator: Signed 25-Aug-2015 Spine Thoracic (Routine) Result: Comments: See Note; NOTES: [facility] Imaging Services [address] [place] [address] Verda 4d Spine Thoracic (Routine) MR#: [id number] Acct: [id number] Name: SHREYAS SHARIF Rep #: [id number] : 1950 F 65 From: Herve Jimenez MD PCP: Madeline Florez DO Status: REG CLI Study: Spine Thoracic (Routine) Date of Exam: 08/25/15 Exam# [id number] Ordering Dr: ELIZABETH RUIZ M.D. STUDY: MRI [...] FACR at 17:45 EST , Service support [phone], CC: ELIZABETH DE LEON M.D.; Komal Florez DO Nuisance Wildlife Control Operator: Signed 17-Aug-2015 Chest PA and Lateral Result: Comments: See Note; NOTES: [facility] Imaging Services [address] [place] [address] [place] [address] 4d Chest PA and Lateral MR#: [id number] Acct: [id number] Name: SHREYAS KATHLEEN Rep #: [id number] : 1950 F 65 From: Elias Finn MD PCP: Madeline Florez DO Status: REG CLI Study: Chest PA and Lateral Date of Exam: 08/17/15 Exam# [id number] Ordering Dr: Madeline Florez DO STUDY: X-RAY [...] Elias Finn MD at 11:09 EST Tel [phone], Service support [phone], Fax RAD/Chest PA and Lateral IMPRESSION: Residual changes persist in the right middle lobe and there has been some improvement. Further followup is recommended. Electr onically Signed: Elias Finn MD at 11:09 EST Tel [phone], Service support [phone], CC: Madeline Florez DO Nuisance Wildlife Control Operator: Signed 12-Aug-2015 Discharge Instruction Result: Comments: See Note; NOTES: [facility] Medical Records Department [address] [place] [address] Discharge Instruction 08/10/15 1702 MR#: [id number] Acct: [id number] Name: SHREYAS KATHLEEN Rep #: [id number] : 1950 65 From: Denny Boen MD PCP: Madeline Florez DO Status: DEP [...] problems, contact your doctor. Call [facility] ([phone]) or report to the closest Emergency Room. Call 911 if necessary. 08/12/15 1502 <Elect ronically signed by Denny Bone MD> Date Denny Bone MD Cosigner Signature (If Indicated): Date CC: Madeline Florez DO 12-Aug-2015 Emergency Department Summary Result: Comments: See Note; NOTES: [facility] Medical Records Department [address] [place] [address] Emergency Department Summary MR#: [id number] Acct: [id number] Name: SHREYAS KATHLEEN Rep #: [id number] : 1950 65 From: Denny Bone MD [...] C: Madeline Bonilla MD T: NTS JOB: [id number] 08/12/15 1502 <Electronically signed by Denny Bone MD> Date Denny Bone MD Cosigner Signature (If Indicated): Date ___ CC: Madeline Florez DO; Katelyn Arenas MD Date Dictated: 08/10/151708 Date Transcribed: 08/10/151708 Nuisance Wildlife Control Operator: Signed Social History Name Dates Details No [...] kg/m2 Body Surface Area Calculated 1.85 m2 21-Vhi-305248:46 Temperature 97.5 f Pulse 89 /min Comments: [...] unknown, given order todayLast vision screen 2014 [employer] Temperature 98.3 f Pulse 75 /min Comments: [...] Comments: PATIENT NOT FASTINGPERFORMED BY: NEY [facility] Jhbnjl0924 [facility] [id number] Bacteria None seen (Normal) Mucus Threads Present (Normal) Cast Type Hyaline casts (Normal) Casts Present {/lpf} (Abnormal) Epithelial Cells (non renal) 0-10 {/hpf} (Normal) Range: 0 - 10 RBC None seen {/hpf} (Normal) Range: 0 - 2 WBC 0-5 {/hpf} (Normal) Range: 0 - 5 86-Moa-758223:42 URINALYSIS (95848) Comments: PATIENT NOT FASTINGPERFORMED BY: Memorandom [employer] [facility] [id number] Information: SRC:UC Microscopic Examination See below: (Normal) Comments: Microscopic was indicated and was performed. Nitrite, Urine Negative (Normal) Urobilinogen,Semi-Qn 0.2 mg/dL (Normal) Range: 0.2-1.0 Bilirubin Negative (Normal) Occult Blood Negative (Normal) Ketones Negative (Normal) Glucose Trace (Abnormal) Protein Trace (Normal) WBC Esterase Trace (Abnormal) Appearance Clear (Normal) Urine-Color Yellow (Normal) pH 7.0 (Normal) Range: 5.0-7.5 Specific [place] 1.010 (Normal) Range: 1.005-1.030 76-Acb-439500:42 URINE RANDELL CULTURE-IDENTIFICATN Comments: PATIENT NOT FASTINGPERFORMED BY: Memorandom [employer] [facility] [id number] (28959) Result 1 MUG (Normal) Comments: Mixed urogenital flora25,000-50,000 colony forming units per mL Urine Final report (Normal) Culture,Comprehensive 48-Spz-722285:49 PARATHORMONE (98572) Comments: PATIENT NOT FASTINGPERFORMED BY: [employer] Wmbllw4359 [facility] [id number] PTH, Intact 45 pg/mL (Normal) Range: 15-65 51-Bky-639991:49 CBC, Platelets & Auto Diff Comments: PATIENT NOT FASTINGPERFORMED BY: Colondee Xazrvi0645 [facility] [id number] (74694) Immature Grans (Abs) 0.0 {x10E3/uL} (Normal) Range: [...] 3.77-5.28 WBC 11.4 {x10E3/uL} (Abnormal) Range: 3.4-10.8 34-Bzs-931356:49 Metabolic Panel, Comprehensive Comments: PATIENT NOT FASTINGPERFORMED BY: [facility] ElmerLrubfs9973 [facility] [id number] (84650) ALT (SGPT) 9 [iU]/L (Normal) Range: 0-32 [...] 8-27 Glucose 136 mg/dL (Abnormal) Range: 65-99 38-Nov-066286:44 URINE CALCIUM ZEINAB TIMED Comments: PATIENT NOT FASTINGPERFORMED BY: NEY Colondee [employer] [facility] [id number] Information: START 07/30/18@7AM (38393) Calcium, Urine 24hr 56.0 {mg/24_hr} (Abnormal) Range: 100.0-300.0 Calcium, Urine 2.8 mg/dL (Normal) 45-Yal-924561:26 HgA1C , Office (27315) HgA1C , Office 6.4 % (Normal) Range: 4.6 - 7.1 70-Ubq-078184:26 Blood Glucose , Office (25743) Blood Glucose , Office 163 (Normal) 04-Vsx-63742:00 MICROALBUMIN: CREATININE RATIO Comments: Jun 19; PATIENT WAS FASTINGPERFORMED BY: Colondee [employer] [facility] [id number] (87999) AND (75641) Alb/Creat Ratio 266.9 {mg/g_creat} (Abnormal) Range: 0.0-30.0 Albumin, Urine 168.7 ug/mL (Normal) Creatinine, Urine 63.2 mg/dL (Normal) 23-Abr-43091:00 Metabolic Panel, Comprehensive Comments: Jun 19; PATIENT WAS FASTINGPERFORMED BY: Colondee [employer] [facility] [id number] (16511) ALT (SGPT) 14 [iU]/L (Normal) Range: 0-32 [...] 8-27 Glucose 121 mg/dL (Abnormal) Range: 65-99 78-Dem-69118:00 HGB A1C (55635) Comments: June 19; PATIENT WAS FASTINGPERFORMED BY: Gem70 [facility] [id number] Hemoglobin A1c 7.0 % (Abnormal) Range: 4.8-5.6 Comments: . Prediabetes: 5.7 - 6.4 Diabetes: >6.4 Glycemic control for adults with diabetes: <7.0 85-Ywd-319613:33 ALKALINE PHOSPHATASE-ISOENZYM Comments: PATIENT NOT FASTINGPERFORMED BY: [facility] [id number] (43024) Intestinal Frac.: 0 % (Normal) Range: 0-18 Bone Fraction: 27 % (Normal) Range: 14-68 Liver Fraction: 73 % (Normal) Range: 18-85 Alkaline Phosphatase 89 [iU]/L (Normal) Range: 39-117 78-Dej-475935:33 CBC, Platelets & Auto Diff Comments: PATIENT NOT FASTINGPERFORMED BY: [facility] Qaghqw8633 [place] [id number] (85258) Immature Grans (Abs) 0.0 {x10E3/uL} (Normal) Range: [...] 3.77-5.28 WBC 5.9 {x10E3/uL} (Normal) Range: 3.4-10.8 63-Ggb-472357:22 HgA1C , Office (52264) Comments: 7.3 HgA1C , Office 7.3 % (Abnormal) Range: 4.6 - 7.1 18-Zyv-630523:22 Blood Glucose , Office (97824) Blood Glucose , Office 173 (Normal) 08-Kcu-13113:40 Basic Metabolic Profile (BMP) Comments: SEND RESULTS OF BMP TO .[facility] [address] [place], [place], [id number] GAP 11 (Normal) Range: 5-15 CO2 27.0 [...] A.D.A. criteria.Please note revised GLUCOSE reference range covhxhuae30/02/2018. 12-Jdv-30259:40 Liver Profile Comments: SEND RESULTS OF BMP TO .[facility] [address] [place], [place], [address] D BILI 0.09 mg/dL (Normal) Range: 0.00-0.30 T BILI 0.40 mg/dL (Normal) Range: 0.20-1.00 ALT 22 U/L (Normal) Range: 13-56 ALK P 103 U/L (Normal) Range: 45-117 AST 17 U/L (Normal) Range: 15-37 GLOB 4.0 g/dL (Normal) Range: 2.2-4.2 ALB 3.8 g/dL (Normal) Range: 3.2-5.0 T PROT 7.8 g/dL (Normal) Range: 6.4-8.2 26-Fmp-221950:41 CALCIFEDIOL (02985) Comments: PATIENT WAS FASTINGPERFORMED BY: 60moChildren[facility] NorthlandDxxbqg0045 [facility] [id number] Vitamin D, 25-Hydroxy 44.2 ng/mL (Normal) Range: 30.0-100.0 Comments: Vitamin D deficiency has been defined by the Whitney ofMedicine and an Endocrine Society practice guideline as alevel of serum 25-OH vitamin D less than 20 ng/mL (1,2).The Endocrine Society went on to further define vitamin Dinsufficiency as a level between 21 and 29 ng/mL (2).1. IOM (Whitney of Medicine). 2010. Dietary reference intakes for calcium and D. [place]: The National Academies Press.2. Jacinto MF, Eddy NC, Quintin JAVED, et al. Evaluation, treatment, and prevention of vitamin D deficiency: an Endocrine Society clinical practice guideline. JCEM. 2010; 96(7):1911-30. 99-Dub-215330:41 METABOLIC PANEL, Comments: PATIENT WAS FASTINGPERFORMED BY: [facility]6370 [facility] [id number] Information: 316024,O81672; OV 03/19 COMPREHENSIVE (69374) ALT (SGPT) 15 [iU]/L (Normal) Range: 0-32 [...] 8-27 Glucose 143 mg/dL (Abnormal) Range: 65-99 16-Opo-073723:31 Blood Glucose , Office (67569) Blood Glucose , Office 211 (Normal) 03-Mnh-026518:31 HgA1C , Office (05744) HgA1C , Office 6.8 % (Normal) Range: 4.6 - 7.1 :33 CBC, Platelets & Auto Diff Comments: PATIENT WAS FASTINGPERFORMED BY: [facility] ElmerMqmbaz2409 [facility] [id number] (49529) Immature Grans (Abs) 0.0 {x10E3/uL} (Normal) Range: [...] 3.77-5.28 WBC 7.7 {x10E3/uL} (Normal) Range: 3.4-10.8 14-Tea-354839:33 Lipid Panel (32542) Comments: PATIENT WAS FASTINGPERFORMED BY: [employer] Ecnixm8061 [facility] [id number] LDL/HDL Ratio 0.9 {ratio} (Normal) Range: 0.0-3.2 Comments: LDL/HDL Ratio Men Women 1/2 Avg.Risk 1.0 1.5 Av g.Risk 3.6 3.2 2X Avg.Risk 6.2 5.0 3X Avg.Risk 8.0 6.1 LDL Cholesterol Calc 35 mg/dL (Normal) Range: 0-99 VLDL Cholesterol Kiesha 53 mg/dL (Abnormal) Range: 5-40 HDL Cholesterol 41 mg/dL (Normal) Triglycerides 264 mg/dL (Abnormal) Range: 0-149 Cholesterol, Total 129 mg/dL (Normal) Range: 100-199 49-Ibx-822719:33 Metabolic Panel, Comprehensive Comments: PATIENT WAS FASTINGPERFORMED BY: [employer] Dcnjay6335 [facility] [id number] (61576) ALT (SGPT) 18 [iU]/L (Normal) Range: 0-32 [...] CREATININE RATIO Comments: PATIENT WAS FASTINGPERFORMED BY: [employer] [id number] (14937) AND (74756) Alb/Creat Ratio 225.5 {mg/g_creat} (Abnormal) Range: 0.0-30.0 Albumin, Urine 112.5 ug/mL (Normal) Creatinine, Urine 49.9 mg/dL (Normal) :33 URINALYSIS (89855) Comments: PATIENT WAS FASTINGPERFORMED BY: Pear ([employer])[facility] [id number] Microscopic Examination See below: (Normal) Comments: Microscopic was indicated and was performed. Nitrite, Urine Negative (Normal) Urobilinogen,Semi-Qn 0.2 mg/dL (Normal) Range: 0.2-1.0 Bilirubin Negative (Normal) Occult Blood Negative (Normal) Ketones Negative (Normal) Glucose Negative (Normal) Protein Trace (Normal) WBC Esterase 2+ (Abnormal) Appearance Clear (Normal) Urine-Color Yellow (Normal) pH 6.5 (Normal) Range: 5.0-7.5 Specific [place] 1.014 (Normal) Range: 1.005-1.030 :33 TSH (92508) Comments: PATIENT WAS FASTINGPERFORMED BY: [employer])[facility] [id number] TSH 3.870 {uIU/mL} (Normal) Range: 0.450-4.500 94-Wad-999437:33 Microscopic Examination Comments: PATIENT WAS FASTINGPERFORMED BY: Colondee Xigwqo3324 [facility] [id number] Bacteria Few (Normal) Mucus Threads Present (Normal) Cast Type Hyaline casts (Normal) Casts Present {/lpf} (Abnormal) Epithelial Cells (non renal) >10 {/hpf} (Abnormal) Range: 0 - 10 RBC 0-2 {/hpf} (Normal) Range: 0 - 2 WBC 11-30 {/hpf} (Abnormal) Range: 0 - 5 :57 HgA1C , Office (23247) Comments: 6.6 HgA1C , Office 6.6 % (Normal) Range: 4.6 - 7.1 :57 Blood Glucose , Office (72523) Blood Glucose , Office 211 (Normal) :53 HEPATIC FUNCTION PANEL Comments: PATIENT NOT FASTINGPERFORMED BY: Colondee ClipMine [facility] [id number] (19101) ALT (SGPT) 13 [iU]/L (Normal) Range: 0-32 AST (SGOT) 17 [iU]/L (Normal) Range: 0-40 Alkaline Phosphatase, S 89 [iU]/L (Normal) Range: 39-117 Bilirubin, Direct 0.08 mg/dL (Normal) Range: 0.00-0.40 Bilirubin, Total <0.2 mg/dL (Normal) Range: 0.0-1.2 Albumin, Serum 4.2 g/dL (Normal) Range: 3.6-4.8 Protein, Total, Serum 6.8 g/dL (Normal) Range: 6.0-8.5 :53 MBBGT-OFPWXIILIVB-VLQND (72491) Comments: PATIENT NOT FASTINGPERFORMED BY: Colondee Ujuecz5606 [facility] [id number] AFP, Serum, Tumor Marker 2.6 ng/mL (Normal) Range: 0.0-8.3 Comments: Optyn ECLIA methodology :53 ALKALINE PHOSPHATASE-ISOENZYM Comments: PATIENT NOT FASTINGPERFORMED BY: Colondee Zqbsmp2644 [facility] [id number] (38083) Intestinal Frac.: 5 % (Normal) Range: 0-18 Bone Fraction: 24 % (Normal) Range: 14-68 Liver Fraction: 71 % (Normal) Range: 18-85 34-Aow-003148:11 ALKALINE PHOSPHATASE-ISOENZYM Comments: PATIENT NOT FASTINGPERFORMED BY: CB [facility] Aqztnx5063 [address] RoadDublin [place] [id number] (03987) Intestinal Frac.: 3 % (Normal) Range: 0-18 Bone Fraction: 19 % (Normal) Range: 14-68 Liver Fraction: 78 % (Normal) Range: 18-85 Alkaline Phosphatase, S 122 [iU]/L (Abnormal) Range: 39-117 :11 CALCIFEDIOL (12544) Comments: PATIENT NOT FASTINGPERFORMED BY: CB [facility] Lbbilv6600 [address] RoadDublin [place] [id number] Vitamin D, 25-Hydroxy 37.5 ng/mL (Normal) Range: 30.0-100.0 Comments: Vitamin D deficiency has been defined by the Whitney ofMedicine and an Endocrine Society practice guideline as alevel of serum 25-OH vitamin D less than 20 ng/mL (1,2).The Endocrine Society went on to further define vitamin Dinsufficiency as a level between 21 and 29 ng/mL (2).1. IOM (Whitney of Medicine). 2010. Dietary reference intakes for calcium and D. [place]: The National Academies Press.2. Jacinto MF, Eddy NC, Quintin JAVED, et al. Evaluation, treatment, and prevention of vitamin D deficiency: an Endocrine Society clinical practice guideline. JCEM. 2010; 96(7):1911-30. 32-Yso-332156:11 TSH (21990) Comments: PATIENT NOT FASTINGPERFORMED BY: CB [facility] Yzyjni0714 [address] RoadDublin [place] [id number] TSH 1.620 {uIU/mL} (Normal) Range: 0.450-4.500 09-Nse-547137:11 T4, FREE (THYROXINE) (20120) Comments: PATIENT NOT FASTINGPERFORMED BY: CB [facility] Adjnee6532 [address] RoadDublin [place] [id number] T4,Free(Direct) 1.00 ng/dL (Normal) Range: 0.82-1.77 14-Bbc-952371:11 T3, FREE (TRIDOTHYRONINE) (56158) Comments: PATIENT NOT FASTINGPERFORMED BY: NEY [facility] Eksedw3669 [facility] [id number] Triiodothyronine,Free,Serum 2.5 pg/mL (Normal) Range: 2.0-4.4 :08 HgA1C , Office (41781) HgA1C , Office 7.4 % (Abnormal) Range: 4.6 - 7.1 :08 Blood Glucose , Office (32120) Blood Glucose , Office 190 (Normal) :30 Lipid Profile Comments: Order Date: 12/12/16Order Info: 0788-1 - *Hepatic Function PanelOrder Info: 05164-3 - *Lipid Profile CC PCPComments: 12 hours fasting, may have water.Comments: 6 months / [facility] [address]olkaat06[address] [place], [place], [address] VLDL 46 mg/dL (Abnormal) Range: 5-40 LDL [...] Info: 0788-1 - *Hepatic Function PanelOrder Info: 53422-2 - *Lipid Profile CC PCPComments: 12 hours fasting, may have water.Comments: 6 months / pre [facility] [address]qpurm[address] [place], [address] D BILI 0.11 mg/dL (Normal) Range: 0.00-0.30 [...] of Apr 09; PATIENT NOT FASTINGPERFORMED BY: THE MELT SantanaTransNetUNC Health [facility]ingham [id number] HORMONE) (26743) TSH 0.728 {uIU/mL} (Normal) Range: 0.450-4.500 :55 HgA1C , Office (21351) HgA1C , Office 6.9 % (Normal) Range: 4.6 - 7.1 :55 Blood Glucose , Office (79820) Blood Glucose , Office 143 (Normal) 26-Prl-238209:11 Microscopic Examination Comments: PATIENT WAS FASTINGPERFORMED BY: THE MELT [address] [facility] [id number] Bacteria Few (Normal) Mucus Threads Present (Normal) Cast Type Hyaline casts (Normal) Casts Present {/lpf} (Abnormal) Epithelial Cells (non renal) 0-10 {/hpf} (Normal) Range: 0 - 10 RBC 0-2 {/hpf} (Normal) Range: 0 - 2 WBC 6-10 {/hpf} (Abnormal) Range: 0 - 5 71-Mri-593349:11 URINALYSIS, W/ MICRO (44135) Comments: January 2017; PATIENT WAS FASTINGPERFORMED BY: THE MELT [facility] [id number] Microscopic Examination See below: (Normal) Comments: Microscopic was indicated and was performed. Nitrite, Urine Negative (Normal) Urobilinogen,Semi-Qn 0.2 mg/dL (Normal) Range: 0.2-1.0 Bilirubin Negative (Normal) Occult Blood Negative (Normal) Ketones Negative (Normal) Glucose Trace (Abnormal) Protein 1+ (Abnormal) WBC Esterase 1+ (Abnormal) Appearance Clear (Normal) Urine-Color Yellow (Normal) pH 6.5 (Normal) Range: 5.0-7.5 Specific [place] 1.016 (Normal) Range: 1.005-1.030 70-Nif-883320:11 MICROALBUMIN: CREATININE RATIO Comments: January 2017; PATIENT WAS FASTINGPERFORMED BY: Gem70 [facility]are[facility] [id number] (02679) AND (17908) Microalb/Creat Ratio 208.2 {mg/g_creat} (Abnormal) Range: 0.0-30.0 Microalbumin, Urine 182.2 ug/mL (Normal) Creatinine, Urine 87.5 mg/dL (Normal) 65-Fdz-259677:11 CBC, Platelets & Auto Diff Comments: January 2017; PATIENT WAS FASTINGPERFORMED BY: Global Animationz6370 [facility]are[facility] [id number] (18905) Immature Grans (Abs) 0.0 {x10E3/uL} (Normal) Range: [...] 3.77-5.28 WBC 5.6 {x10E3/uL} (Normal) Range: 3.4-10.8 61-Tzz-433541:11 Metabolic Panel, Comprehensive Comments: January 2017; PATIENT WAS FASTINGPERFORMED BY: [facility]CoIn[facility] ElmerGdrrcz4562 [facility] [id number] (85412) ALT (SGPT) 13 [iU]/L (Normal) Range: 0-32 [...] Glucose, Serum 120 mg/dL (Abnormal) Range: 65-99 83-Vbl-632514:11 TSH (THYROID STIMULATING Comments: January 2017; PATIENT WAS FASTINGPERFORMED BY: [facility] Vrnirn3906 [facility] [id number] HORMONE) (94243) TSH 0.982 {uIU/mL} (Normal) Range: 0.450-4.500 5-Xqq-067026:02 Lipid Profile Comments: Order Date: 12/04/16Order Info: 0788-1 - *Hepatic Function PanelOrder Date: 12/04/16Order Info: 10588-9 - *Lipid Profile CC PCPComments: 12 hours fasting, may have water.[place] [address] [place], [place], [address] VLDL 36 mg/dL (Normal) Range: 5-40 LDL [...] 200-240 mg/dL Borderline >240 mg/dL High Risk 6-Vfo-140600:02 Liver Profile Comments: Order Date: 12/04/16Order Info: 0788-1 - *Hepatic Function PanelOrder Date: 12/04/16Order Info: 73370-5 - *Lipid Profile CC PCPComments: 12 hours fasting, may have water.[place] [address] [place], [place], [address] D BILI 0.07 mg/dL (Normal) Range: 0.00-0.30 T BILI 0.30 mg/dL (Normal) Range: 0.20-1.00 ALT 21 U/L (Normal) Range: 12-78 ALK P 112 U/L (Normal) Range: 45-117 AST 19 U/L (Normal) Range: 15-37 GLOB 3.8 g/dL (Abnormal) Range: 2.3-3.5 ALB 3.4 g/dL (Normal) Range: 3.4-5.0 T PROT 7.2 g/dL (Normal) Range: 6.4-8.2 84-Fts-901345:29 URINE RANDELL CULTURE-ZEINAB COL Comments: PATIENT NOT FASTINGPERFORMED BY: [employer] [facility] [id number] Information: SRC:UC COUNT (16301) Result 1 MUG (Normal) Comments: Mixed urogenital flora25,000-50,000 colony forming units per mL Urine Final report (Normal) Culture,Comprehensive 20-Ytd-842024:53 Urinalysis, Office (65798) UA - LEUKOCYTE ESTERASE Small (Normal) UA - NITRITE Negative (Normal) URINE UROBILINGN ZEINAB TIMED Normal mg/dL (Normal) UA - PROTEIN Negative mg/dL (Normal) UA - PH 7 (Normal) UA - BLOOD Negative (Normal) UA - SPECIFIC GRAVITY 1.020 (Normal) UA - KETONES Negative mg/dL (Normal) UA - BILIRUBIN Small (Normal) UA - GLUCOSE Negative (Normal) 54-Ljd-527480:51 Blood Glucose , Office (24964) Comments: 169 Blood Glucose , Office 169 (Normal) 29-Yqd-453157:52 HgA1C , Office (60579) Comments: 7.0 HgA1C , Office 7.0 % (Normal) Range: 4.6 - 7.1 :22 URINE RANDELL CULTURE-IDENTIFICATN Comments: PATIENT NOT FASTINGPERFORMED BY: [facility]CoInsp[facility] Center ElmerOqcckk3506 [facility] [id number] Information: SRC:UC (55209) Result 1 MUG (Normal) Comments: Mixed urogenital flora10,000-25,000 colony forming units per mL Urine Final report (Normal) Culture,Comprehensive 12-Bke-692741:05 Urinalysis, Office (40813) UA - LEUKOCYTE ESTERASE Negative (Normal) UA - NITRITE Negative (Normal) URINE UROBILINGN ZEINAB TIMED Normal mg/dL (Normal) UA - PROTEIN 30 mg/dL (Normal) UA - PH 6 (Abnormal) UA - BLOOD non-hemolyzed trace (Normal) UA - SPECIFIC GRAVITY 1.020 (Normal) UA - KETONES Negative mg/dL (Normal) UA - BILIRUBIN Negative (Normal) UA - GLUCOSE 100 (Abnormal) :42 HgA1C , Office (61929) HgA1C , Office 6.2 % (Normal) Range: 4.6 - 7.1 :42 Blood Glucose , Office (79747) Blood Glucose , Office 137 (Normal) 1-Ygi-687280:01 TSH (THYROID STIMULATING Comments: PATIENT NOT FASTINGPERFORMED BY: [employer])[facility] [id number] HORMONE) (48181) TSH 1.820 {uIU/mL} (Normal) Range: 0.450-4.500 :03 HEPATIC FUNCTION PANEL Comments: PATIENT NOT FASTINGPERFORMED BY: [employer])[facility] [id number] (64405) ALT (SGPT) 15 [iU]/L (Normal) Range: 0-32 AST (SGOT) 23 [iU]/L (Normal) Range: 0-40 Alkaline Phosphatase, S 95 [iU]/L (Normal) Range: 39-117 Bilirubin, Direct 0.12 mg/dL (Normal) Range: 0.00-0.40 Bilirubin, Total 0.3 mg/dL (Normal) Range: 0.0-1.2 Albumin, Serum 4.3 g/dL (Normal) Range: 3.6-4.8 Protein, Total, Serum 7.3 g/dL (Normal) Range: 6.0-8.5 :03 GZLAI-WQNQTWEWJNE-PYYOD (69546) Comments: PATIENT NOT FASTINGPERFORMED BY: [employer])[facility] [id number] AFP, Serum, Tumor Marker 2.8 ng/mL (Normal) Range: 0.0-8.3 Comments: ZirtualIA methodology 6-Opx-431470:03 HEPATITIS PANEL (39898) Comments: PATIENT NOT FASTINGPERFORMED BY: [facility] Kqcesc[address] [facility] [id number] Hep C Virus Ab <0.1 {s/co_ratio} (Normal) Range: 0.0-0.9 Comments: Negative: < 0.8 Indeterminate: 0.8 - 0.9 Positive: > 0.9 . The CDC recommends that a positive HCV antibody result be followed up with a HCV Nucleic Acid Amplification test (171480). Hep B Core Ab, IgM Negative (Normal) HBsAg Screen Negative (Normal) Hep A Ab, IgM Negative (Normal) :58 CBC W/Diff, Automated Comments: CBCD FOR DR CHATMANFalmouth Hospitalisma [facility] [address]tr[address] [place], [address] Absolute Lymph 1.84 {X10_3/ul} (Normal) Range: 0.83-4.51 [...] Comments: Order Date: 05/14/16Interface Comments: Reason:Order Date: 05/14/16[facility] [address] [place], [place], [address] T4 THYROXIN 11.6 ug/dL (Normal) Range: 4.8-13.9 :58 Thyroid Stim Hormone (TSH) Comments: Order Date: 05/14/16Interface Comments: Reason:Order Date: 05/14/16[facility] [address] [place], [address] TSH 1.96 {uIU/mL} (Normal) Range: 0.358-3.74 :11 Urinalysis, Office (34331) UA - LEUKOCYTE ESTERASE Small (Normal) UA - NITRITE Negative (Normal) URINE UROBILINGN ZEINAB TIMED Normal mg/dL (Normal) UA - PROTEIN 30 mg/dL (Normal) UA - PH 6 (Abnormal) UA - BLOOD Negative (Normal) UA - SPECIFIC GRAVITY 1.010 (Normal) UA - KETONES Negative mg/dL (Normal) UA - BILIRUBIN Negative (Normal) UA - GLUCOSE Negative (Normal) :50 Basic Metabolic Profile (BMP) Comments: [facility] [address]biasswb[address] [place], [place], [address] GAP 7 (Normal) Range: 5-15 CO2 33.0 [...] 100 mg/dL (Normal) Range: 70-110 :48 MAGNESIUM (99109) Comments: PATIENT NOT FASTINGPERFORMED BY: Global Animationz6370 [facility] [id number] Magnesium, Serum 1.6 mg/dL (Normal) Range: 1.6-2.3 :48 TSH (THYROID STIMULATING Comments: PATIENT NOT FASTINGPERFORMED BY: Black Raven [employer]ag [facility] Gnhomg4369 [facility] [id number] HORMONE) (09324) TSH 6.340 {uIU/mL} (Abnormal) Range: 0.450-4.500 :48 URIC ACID BLOOD (01806) Comments: PATIENT NOT FASTINGPERFORMED BY: [employer] [facility] Nzmcdc4646 [facility] [id number] Uric Acid, Serum 6.1 mg/dL (Normal) Range: 2.5-7.1 Comments: Therapeutic target for gout patients: <6.0 :09 Blood Glucose , Office (94892) Blood Glucose , Office 116 (Normal) :09 HgA1C , Office (07659) HgA1C , Office 6.7 % (Normal) Range: 4.6 - 7.1 :19 Basic Metabolic Profile (BMP) Comments: Order Date: 03/12/16OV Order #: [id number] Clinic [facility] Hospital [address]xphviqf[address] [place], [address] GAP 7 (Normal) Range: 5-15 CO2 29.0 [...] Thyroxin Comments: Order Date: 03/12/16 Order #: [id number] Health Behavioral Medical Center [address]hwemzj[address] [place], [place], [address] T4 THYROXIN 9.4 ug/dL (Normal) Range: 4.8-13.9 :19 Thyroid Stim Hormone (TSH) Comments: Order Date: 03/12/16 Order #: [id number] Health Behavioral Medical Center [address]dfsua[address] [place], [place], [address]52(787) TSH 5.44 {uIU/mL} (Abnormal) Range: 0.358-3.74 85-Had-576492:49 Aerobic Bacterial Culture Comments: PATIENT NOT FASTINGPERFORMED BY: [facility] Autcvv3565 [facility] [id number] Information: RT AXILLA Result 1 MRSA (Abnormal) [...] Comments: PATIENT NOT FASTINGPERFORMED BY: CB [facility] Ujkhqo4725 [address]ana RoadDublin [place] [id number] Information: NASAL 5:49 Culture 86-Pzu-040407:20 Basic Metabolic Profile (BMP) Comments: [facility] Ontpqfbjbo[address] [place], [address] GAP 7 (Normal) Range: 5-15 CO2 29.0 [...] A.D.A. criteria. :02 Blood Glucose , Office (71352) Blood Glucose , Office 137 (Normal) :54 Urine Drug Screen (Office - WNL (Normal) Comments: pos for oxy, all else neg Urine Drug Screen 6 Panel) Comments: All negative except Oxy (59601) :52 HgA1C , Office (10283) Comments: 7.3 HgA1C , Office 7.3 % (Abnormal) Range: 4.6 - 7.1 2-Kal-750151:43 Basic Metabolic Profile (BMP) Comments: DR URBINA ORDERED BMPDR [facility]ERYISPAW ORDERED LIVER LIPIDKettering Health Behavioral Medical Center [address]ep[address] [place], [address] GAP 3 (Abnormal) Range: 5-15 [...] 7-18 GLU 101 mg/dL (Normal) Range: 70-110 9-Dzx-300975:43 Lipid Profile Comments: DR URBINA ORDERED BMPDR MOODISPAW ORDERED LIVER LIPIDKettering Health Behavioral Medical Center Flfaxnjjtm[address] [place], [place], [address] VLDL 26 mg/dL (Normal) Range: 5-40 LDL [...] 200-240 mg/dL Borderline >240 mg/dL High Risk 1-Xxr-693172:43 Liver Profile Comments: DR URBINA ORDERED BMPDR MOODISLEANN ORDERED LIVER LIPIDWCleveland Clinic Union Hospital [address]tuuennb[address] [place], [place], [address] D BILI 0.14 mg/dL (Normal) Range: 0.00-0.30 T BILI 0.40 mg/dL (Normal) Range: 0.20-1.00 ALT 16 U/L (Normal) Range: 12-78 ALK P 112 U/L (Normal) Range: 50-136 AST 19 U/L (Normal) Range: 15-37 GLOB 3.9 g/dL (Abnormal) Range: 2.3-3.5 ALB 3.0 g/dL (Abnormal) Range: 3.4-5.0 T PROT 6.9 g/dL (Normal) Range: 6.4-8.2 1-Oms-285505:02 Blood Glucose , Office (90760) Blood Glucose , Office 160 (Normal) 47-Xuo-074320:37 HgA1C , Office (92035) Comments: 7.2 HgA1C , Office 7.2 % (Abnormal) Range: 4.6 - 7.1 40-Lgx-151163:24 MRSA Culture (50367) Comments: [facility] [address] [place], [place], [address] MRSA RESULT Negative (Normal) 7-Fmx-352441:59 Metabolic Panel, Basic Comments: send to Dr.Masroor Urbina; PATIENT NOT FASTINGPERFORMED BY: LabCoMesilla Valley HospitalBgsmte3195 [facility] [id number] Information: [id number] (36725) Calcium, Serum 10.7 mg/dL (Abnormal) Range: 8.7-10.3 [...] Glucose, Serum 182 mg/dL (Abnormal) Range: 65-99 8-Bbm-692596:09 MRSA Culture (43462) Comments: [facility] [address] [place], [address] MRSA RESULT POSITIVE (Abnormal) :39 Lipid Profile Comments: [facility] [address] [place], [address] VLDL 23 mg/dL (Normal) Range: [...] mg/dL High Risk :39 Liver Profile Comments: [facility] [address] [place], [address] ; non-emergent and handled by [...] Range: 6.4-8.2 :39 T4 Total, Thyroxin Comments: [facility] [address] [place], [place], [address] T4 THYROXIN 10.9 ug/dL (Normal) Range: 4.8-13.9 :39 Thyroid Stim Hormone (TSH) Comments: [facility] [address] [place], [place], [address] TSH 3.63 {uIU/mL} (Normal) Range: 0.358-3.74 2-Qju-824938:13 LIPID PANEL (91145) Comments: PATIENT WAS FASTINGPERFORMED BY: LabCoGeewa Npzxvh2221 [facility] [id number] LDL/HDL Ratio 1.2 {ratio_units} (Normal) Range: 0.0-3.2 [...] Cholesterol, Total 160 mg/dL (Normal) Range: 100-199 0-Rkf-110495:13 CBC W/AUTO DIFF WBC Comments: PATIENT WAS FASTINGPERFORMED BY: LabCoMinusTzjnim2522 [facility] [id number] Information: [id number] (03680) Immature Grans (Abs) 0.0 {x10E3/uL} (Normal) Range: [...] 3.77-5.28 WBC 4.5 {x10E3/uL} (Normal) Range: 3.4-10.8 3-Ktp-061989:13 METABOLIC PANEL, COMPREHENSIVE Comments: PATIENT WAS FASTINGPERFORMED BY: LabCoInspira Medical Center ElmerPgzkys2720 [facility] [id number] (31942) ALT (SGPT) 8 [iU]/L (Normal) Range: 0-32 [...] Glucose, Serum 109 mg/dL (Abnormal) Range: 65-99 4-Rzr-928135:15 Basic Metabolic Profile (BMP) Comments: [facility] [address] [place], [place], [address] GAP 7 (Normal) Range: 5-15 CO2 30.0 [...] 200 mg/dLsuggests DIABETES MELLITUS per A.D.A. criteria. 2-Oqb-682098:15 CBC W/Diff, Automated Comments: [facility] [address] [place], [place], [address] Absolute Lymph 0.95 {X10_3/ul} (Normal) Range: 0.83-4.51 [...] 4.2-5.4 WBC 5.4 K/mm3 (Normal) Range: 4.4-11.0 69-Soa-080547:31 LIPID PANEL (26265) Comments: PATIENT WAS FASTINGPERFORMED BY: LabCoInspira Medical Center ElmerSceshb1050 [facility] [id number]; non-emergent till apt LDL/HDL Ratio 1.6 {ratio_units} [...] PATIENT WAS FASTINGPERFORMED BY: LabCoInspira Medical Center ElmerCqlapy8779 [facility] [id number] Information: [id number] (34874) Immature Grans (Abs) 0.0 {x10E3/uL} (Normal) Range: [...] CREATININE RATIO Comments: PATIENT WAS FASTINGPERFORMED BY: ColondeeInspira Medical Center ElmerDrdkkr0303 [facility] [id number] (46149) AND (14911) Microalb/Creat Ratio 93.7 {mg/g_creat} (Abnormal) Range: 0.0-30.0 Microalbumin, Urine 196.4 ug/mL (Abnormal) Range: 0.0-17.0 Creatinine, Urine 209.7 mg/dL (Normal) Range: 15.0-278.0 22-Cxu-857873:31 METABOLIC PANEL, COMPREHENSIVE Comments: PATIENT WAS FASTINGPERFORMED BY: Lawn Love6370 [facility] [id number] (42297) ALT (SGPT) 20 [iU]/L (Normal) Range: 0-32 [...] Glucose, Serum 120 mg/dL (Abnormal) Range: 65-99 39-Zcn-317030:31 Hemoglobin Glyclated (HGB A1C) Comments: PATIENT WAS FASTINGPERFORMED BY: [facility] Dy[address]ab[address] [facility] [id number] (47741) Hemoglobin A1c 7.6 % (Abnormal) Range: 4.8-5.6 Comments: . Pre-diabetes: 5.7 - 6.4 Diabetes: >6.4 Glycemic control for adults with diabetes: <7.0 30-Ikv-902844:30 Urinalysis, Complete Comments: Order Date: 07/18/15How was Urine Obtained? CLEAN [facility] Pmpuymopzo7510 [facility] [place], [address] MUCUS, URINE 0 SEEN {/hpf} [...] (Abnormal) CLARITY Clear (Normal) COLOR Yellow (Normal) 87-Skd-782065:43 CBC W/Diff, Automated Comments: [facility] [address]xozmyli83[address] [facility] [place], [address] PATH REV May foll (Normal) [...] 4.2-5.4 WBC 15.1 K/mm3 (Abnormal) Range: 4.4-11.0 20-Hff-956216:43 Comprehensive Metabolic Profil Comments: [facility] [address] [place], [place], [address] GAP 8 (Normal) Range: 5-15 CO2 33.0 [...] 200 mg/dLsuggests DIABETES MELLITUS per A.D.A. criteria. 41-Xqk-619168:43 Lactic Acid Comments: Comments: To be drawn 6H after initial specimenWCleveland Clinic Union Hospital [address]bydzvby[address] [place], [place], [address](604) LACTIC ACID 1.7 mmol/L (Normal) Range: 0.4-2.0 30-Odx-965028:43 Magnesium Comments: [facility] [address] [place], [address] MG 1.3 mg/dL (Abnormal) Range: 1.8-2.4 45-Nul-518275:43 Partial Thromboplast Time Comments: [facility] [address] [place], [address] PTT 31.4 s (Normal) Range: 24.1-36.2 57-Syv-854505:43 Phosphorus Comments: [facility] [address] [place], [address] PHOS 1.0 mg/dL (Abnormal) Range: 2.5-4.9 Comments: Critical Result(s) Called at: 17:06:16 07/18/2015 by:Stacey roger to malia ibarra 40-Dea-940264:43 Prothrombin Time w/INR Comments: [facility] [address] [place], [place], [address] INR 0.9 (Normal) PROTIME 12.8 s (Normal) [...] with abnormal findings in adult : Reviewed Contract Associate Manager Letter Indication: Encounter for annual general medical [...] Planned Observations CBC, PLATELETS & AUT DIFF ([id number])Indication: Elevated WBC count On: 04-Aug-20187:59 Request Cologuard - Strool Based DNA Test, CRC SCREEN ([id number])Indication: Encounter for screening for malignant neoplasm of colon (Renamed from Special screening for malignant neoplasms, colon) On: [id number]-Ojz-[id number]:05 Request FECAL OCCULT- Tubes sent home ([id number])Indication: Encounter for screening for malignant neoplasm of colon (Renamed from Special screening for malignant neoplasms, colon) On: 24-Rgg-253604:09 Request Lipid Panel ([id number])Indication: Diabetes mellitus type 2, insulin dependent On: 89-Hmx-266679:08 Request Comments: around January Metabolic Panel, Comprehensive ([id number])Indication: Diabetes mellitus type 2, insulin dependent On: 56-Qii-406721:08 Request Comments: around January CBC, Platelets & Auto Diff (12424)Indication: Diabetes mellitus type 2, insulin dependent On: 86-Vjw-438473:08 Request Comments: around January TSH (38307)Indication: Diabetes mellitus type 2, insulin dependent On: 04-Suv-655443:08 Request Comments: around January Rapid Flu (48344 x 2)Indication: Unspecified Diagnosis On: 48-Ljh-18926:33 Request CBC & PLATELETS (AUTO) ([id number])Indication: Abdominal pain On: 5-Ymx-617210:57 Request CULTURE, NOSE ([id number])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 On: 75-Cqa-812708:31 Request Comments: check for MRSA MRSA Culture (32274)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 On: 17-Hfy-601860:23 Request Comments: rt axila HgA1C , Office (54089)Indication: Diabetes mellitus type 2, insulin dependent On: 94-Dsk-661520:21 Request Urinalysis, Office (22047)Indication: History of MRSA infection On: 31-Gmn-145089:42 Request Hemoglobin Glyclated (HGB A1C) (33864)Indication: Diabetes mellitus type 2, uncontrolled On: 78-Hzd-993427:46 Request MICROALBUMIN: CREATININE RATIO ([id number]) AND (76900)Indication: Hypertensive heart disease without heart failure On: 64-Dcb-023110:46 Request Planned Encounters Medical; 3 Month FU - On: 28-Oct-2018 13:45 [facility] Elsa Chopra CNP, CNP, Mary E Planned Procedures CHEST XRAY, PA & LATERAL ([id number])By: On: 29-Jul-2018 Intent Elsa Chopra CNP, CNP, Mary E Overnight Pulse OX ([id number])By: On: 30-Jun-2018 Intent Lee Ann Schafer DO SPIROMETRY PERFORMED ([id number])By: On: 25-Jun-2018 Intent Visit, Nurse SPIROMETRY PERFORMED ([id number])By: On: 25-Jun-2018 Intent Visit, Nurse SIX MINUTE WALK TEST ([id number])By: On: 25-Jun-2018 Intent Visit, Nurse Flu Vaccine (Quadrivalent) 14082Zr: On: 20-May-2018 Intent Karly Chandra DEXA SCAN AXIAL SKELETON ([id number])By: On: 18-Dec-2017 Intent Elsa Chopra CNP, CNP, Mary E SCREENING DIGITAL TOMOSYNTHESIS OF On: 18-Dec-2017 Intent BREAST ([id number])By: Elsa Chopra CNP, CNP, Mary E Flu Vaccine (Quadrivalent) [id number]: On: 11-Jun-2017 Intent Elsa Chopra CNP, CNP, Mary E Comments: InfluenzaLot #[id number]-L dltd, IMDose prefilled syringeVIS and ABN signedgiven by:GENARO blackwood PHYSICAL THERAPY TREATMENT On: 11-Dec-2016 Intent ([id number])By: Adelita Doshi LPN PHYSICAL THERAPY EVALUATION On: 11-Dec-2016 Intent ([id number])By: Elsa Chopra CNP, CNP, Mary E Toradol Injection, 30 mg On: 10-Dec-2016 Intent ([id number])By: Elsa Chopra CNP, CNP, Mary E Radiology - Hip - RightBy: Nav On: 10-Dec-2016 Intent Elsa MCKINLEY CNP, Mary E Aerosol Treatment ([id number])By: Tico On: 16-Oct-2016 Intent Adelita LAM Flu Vaccine (Quadrivalent) 53358Zu: On: 11-Jul-2016 Intent Elsa Chopra CNP, CNP, Mary E Comments: FLUlot: [id number]:01/16site:Lt deltoidroute:IMdose:.5mlBHAVNA SHAW Ultrasound - Abdomen CompleteBy: On: 03-Jul-2016 Intent Elsa Chopra CNP, CNP, Mary E Radiology - KUBBy: Elsa Chopra CNP On: 03-Jul-2016 Intent Elsa العلي CNP DRAIN/INJECT SMALL JOINT OR BURSA On: 18-May-2016 Intent ()By: Elsa Chopra CNP Comments: to left wrist joint 1/2 cc cuca, 1/2 cc george. Luisalog lot [id number] exp Marcain lot [id number] ex Elsa MCKINLEY MAMMOGRAM, SCREENING, BOTH BREAST On: 11-May-2016 Intent ([id number])By: Elsa Chopra CNP, CNP, Mary E Radiology [...] mellitus without complication) : DISCONTINUED - URINALYSIS ([id number]) Indication: Diabetes mellitus type II, controlled, with no complications (Renamed from Controlled type 2 diabetes mellitus without complication) CKD (chronic kidney disease), stage III : DISCONTINUED - MICROALBUMIN: CREATININE RATIO (54897) AND (93710) Indication: CKD (chronic kidney disease), stage III Diabetes mellitus type II, controlled, with no complications (Renamed from Controlled type 2 diabetes mellitus without complication) : DISCONTINUED - CBC, PLATELETS & AUT DIFF ([id number]) Indication: Diabetes mellitus type II, controlled, with no complications (Renamed from Controlled type 2 diabetes mellitus without complication) Diabetes mellitus type II, controlled, with no complications (Renamed from Controlled type 2 diabetes mellitus without complication) : DISCONTINUED - METABOLIC PANEL, COMPREHENSIVE ([id number]) Indication: Diabetes mellitus type II, controlled, with no complications (Renamed from Controlled type 2 diabetes mellitus without complication) Diabetes mellitus type II, controlled, with no complications (Renamed from Controlled type 2 diabetes mellitus without complication) : DISCONTINUED - TSH ([id number]) Indication: Diabetes mellitus type II, controlled, with [...] dependent : DISCONTINUED - METABOLIC PANEL, BASIC (33347) Indication: Diabetes mellitus type 2, insulin dependent [...] patient does not have durable power of commonwealth attorney or living will. The patient has noticed getting bored, poor spirits most of time and lack of energy. Other providers contributing to the lyndsey bolton's care are fireboat operator () and urologist (). Note for [...] and is sleeping poorly. Patient has been [place] End: 18-Dec-2017 14:15 pliant with instructions. Current [...] and is sleeping poorly. Patient has been [place] End: 18-Sep-2017 13:50 pliant with instructions. Current [...] - Reason for ER visit: note: (surgery [facility]. ). The patient feels well [...] She has had pre-op testing at [facility] on 10-14-2015, for Lumbar microdecompression for 10-24-2015 Blood work. Bathroom Tiling Professional Dr. Dahl for papers to be signed [...] 19-Jul-2015 22:21 - sharp pain- went to [facility] ER). Current medication use: no side effects [...] surgeon- - recently went to er at [place] on jul 14 - she was having [...]
--- OUTSIDE RECORDS SUMMARY | 2018-09-25 14:34 | XMS RPT_ITS | Continuity of Care Document ---
:1950 Author Organization [facility] Address [facility] [address] [place] [address] Phone Care Team Providers Name Role Phone Nav ARLENElsa Unavailable Malcolm STANLEY, Casey Florian Unavailable Linden DO , Dr. Aaron Diaz Unavailable John WestfallAnnalisa lynne Unavailable Dr. Abimael Ag Unavailable Kirby STANLEY, Jared Galeano Unavailable Pascale Boston Unavailable Tico MINERAL ECONOMIST, Adelita Unavailable Unavailable Karly Chandra Unavailable Unavailable Remington Oviedo Unavailable Unavailable Long MINERAL ECONOMIST, Dora Orantes Unavailable Unavailable Trina Sorenson Unavailable [...] 585.3) Comments: follows with Dr. Munguia in [place], seen for sarcoidosis currently, stableGFR 40 Status: [...] on wean of steroid Scale 201-250. 5 -258 8 pbyxm742-982 10 velkt190-564 12 units>401 15 unitsad ding metformin not [...] given in L arm subcutaneously paitent tolerated wellLOT#[id number]#2020 NOV 06 Status: Active Postmenopausal (Renamed from Postmenopausal status) (Z78.0, V49.81) Status: Active Pregnancies () Comments: 1. 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) Comments: Sees Ciara at [facility] for sarcoid in bone marrow just [...] Ordered:25-Jul-2015Madeline Start : 18-Jul-2015 Active VITAMIN D3, 33850UIDK (Oral Capsule) 1 (one) Capsule Capsule once [...] Quantity: 1 {Vial} Refills: 6 Ordered:07-Feb-2016 Nav GASOLINE ATTENDANT, Elsa Reyes GASOLINE ATTENDANT, Elsa Luke Start : 03-Oct-2015 End : 07-Feb-2016 Discontinued LEVEMIR, 100UNIT/ML (Subcutaneous Solution) 20 Solution units each morning for 30 days Quantity: 1 {Vial} Refills: 6 Ordered:20-Jan-2016 Adelita Doshi LPN Start : 21-Oct-2015 End : 20-Jan-2016 Discontinued MACROBID, 100MG (Oral Capsule) q12hrs (100 MG) End : 05-Aug-2015 Discontinued Comments:[facility] MUPIROCIN, 2% (External Ointment) 1 [...] Quantity: 60 {QS} Refills: 0 Ordered:18-Dec-2017 Slarb MINERAL ECONOMIST, Adelita Start : 03-Jul-2016 End : 18-Dec-2017 Discontinued PredniSONE 10 MG Oral Tablet 1 (one) Tablet bid x 3 days, then 1 daily x 3 days,then 1/2 daily x 3 for 0 days Quantity: 12 {Tablet} Refills: 0 Ordered:19-Nov-2016 Slarb MINERAL ECONOMIST, Adelita Start : 16-Oct-2016 End : 19-Nov-2016 Discontinued Comments:with food PredniSONE 5 MG Oral Tablet 1 (one) Tablet Tablet qod for 0 days Quantity: 60 {Tablet} Refills: 11 Ordered:12-Mar-2016 Slarb MINERAL ECONOMIST, Adelita Start : 20-Jan-2016 End : 12-Mar-2016 Discontinued Comments:Per Ciara Avila Perles 100 MG Oral Capsule 1 (one) Capsule tid prn for 0 days Quantity: 30 {Capsule} Refills: 0 Ordered:19-Nov-2016 Slarb MINERAL ECONOMIST, Adelita Start : 16-Oct-2016 End : 19-Nov-2016 Discontinued Vancomycin HCl End : 05-Aug-2015 Discontinued Comments:1,250mg IV q24hrs x 64diop9,500mg IV q24hrs #14 Allergies and Adverse Reactions [...] Comments: was seeing Dr. Munguia's partner in [place] Dr. Morel, gfr 43%, has proteinuria Status: [...] and Lateral Result: Comments: See Note; NOTES: [facility] Imaging Services [address] [place] [address] Chest PA and Lateral MR#: [id number] Acct: [id number] Name: SHREYAS KATHLEEN Rep #: [id number] : 1950 F 68 From: Blane Shelley MD PCP: Elsa Chopra NP Status: REG CLI Study: Chest PA and Lateral Date of Exam: 07/31/18 Exam# [id number] Ordering Dr: Elsa Chopra DIGITAL CAMPAIGN MANAGER-C HISTORY: HX OF SARCOI DOSIS EXAM: XR [...] Service support , CC: Elsa Chopra NP Director Of Midwifery/Staff Midwife: Signed 17-Feb-2018 Cardiology Visit Report Result: Comments: See Note; NOTES: [facility] [place] 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 Atherosclerosis of [place] shoshone coronary artery of [place] shoshone heart without angina pectoris I25.10 Mild Plan [...] be scheduled for an outpatient visit in [facility] 9 months unless needed sooner. Thank you for allowing me to participate in the care of your patient. Please don't hesitate to call if any issues arise. This note was generated using a voice [employer] system and there may be incorrect words, spelling or punctuation that were not noted when reviewing the office note prior to saving. Follow Up 9 Months Coding Level of Care Code Off vis,est,leve l 4 Diagnoses Atherosclerosis of ely shoshone coronary artery of [place] shoshone heart without angina pectoris I25.10 [place] vs. transplanted heart: ely shoshone heart Paroxysmal atrial fibrillation I48.0 Hyperlipidemia, u nspecified hyperlipidemia type E78.5 Hyperlipidemia type: unspecified Essential hypertension I10 Hypertension type: essential hypertension Long-term use of high-risk medication Z79.899 Coding Level of Care Code Off vis,est,level 4 Diagnoses Atherosclerosis of [place] shoshone coronary artery of [place] shoshone heart without angina pectoris I25.10 [place] vs. transplanted heart: ely shoshone heart Paroxysmal atrial fibrillat ion I48.0 Hyperlipidemia, unspecified hyperlipidemia type E78.5 Hyperlipidemia type: unspecified Essential hypertension I10 Hypertension type: essential hypertension Long-term use of high-risk medicatio n Z79.899 02/17/18 1530 <Electronically signed by Casey Fowler MD> Date Casey Fowler MD Cosigner Signature: Date _ (if applicable) CC: Elsa Chopra NP 14-Feb-2018 SCREENING MAMM (CAD), BILAT Result: Comments: See Note; NOTES: [facility] Imaging Services [address] [place] [address] SCREENING MAMM (CAD), BILAT MR#: [id number] Acct: [id number] Name: SHREYAS KATHLEEN Rep #: [id number] : 1950 F 67 From: Elias Finn MD PCP: Elsa Chopra NP Status: REG CLI Study: SCREENING MAMM (CAD), BILAT Date of Exam: 02/14/18 Exam# [id number] Ordering Dr: Elsa Chopra MAMMO GRAPHY - [...] these results will be sent to the [facility] nt by the facility within 30 days. Approximately 10% of breast cancers are not detected by mammography. A normal mammogram should not delay biopsy of a clinically suspicious abnormality. [id number] Elect ronically Signed: Elias Finn MD at 8:30 EDT Tel [phone], Service support , CC: Elsa Chopra NP Director Of Midwifery/Staff Midwife: Signed 21-Jan-2018 Dexa Bone Density Study Result: Comments: See Note; NOTES: [facility] Imaging Services [address] [place] [address] Dexa Bone Density Study MR#: [id number] Acct: [id number] Name: SHREYAS KATHLEEN Rep #: [id number] : 1950 F 67 From: Elias Finn MD PCP: Elsa Chopra NP Status: REG CLI Study: Dexa Bone Density Study Date of Exam: 01/21/18 Exam# [id number] Ordering Dr: Elsa Chopra STUDY: DUAL E [...] Elias Finn MD at 15:36 EDT Tel [phone], Service support , CC: Elsa Chopra NP Director Of Midwifery/Staff Midwife: Signed 10-Dec-2016 Hip 2-3 Views with Pelvis Result: Comments: See Note; NOTES: [facility] Imaging Services [address] [place] [address] Verdana 4d Hip 2-3 Views with Pelvis MR#: [id number] Acct: [id number] Name: SHREYAS KATHLEEN Rep #: [id number] : 1950 F 66 From: Herve Jimenez MD PCP: Elsa Chopra Status: REG CLI Study: Hip 2-3 Views with Pelvis Date of Exam: 12/10/16 Exam# [id number] Ordering Dr: Elsa Chopra STUDY : X-RAY [...] FACR at 11:31 EDT , Service support [phone], CC: Elsa Chopra Director Of Midwifery/Staff Midwife: Signed 05-Jul-2016 Abdomen Complete Result: Comments: See Note; NOTES: [facility] Imaging Services [address] [place] [address] Verda 4d Abdomen Complete MR#: [id number] Acct: [id number] Name: SHREYAS KATHLEEN Keira Rep #: [id number] : 1950 F 66 From: Elias Finn MD PCP: Elsa Chopra Status: REG CLI Study: Abdomen Complete Date of Exam: 07/05/16 Exam# [id number] Ordering Dr: Elsa Chopra STUDY: ABDOMINAL ULTRASOUND [...] Elias Finn MD at 9:35 EDT Tel [phone], Service support [phone], CC: Elsa Chopra Director Of Midwifery/Staff Midwife: Signed 05-Jul-2016 Abdomen Single View Result: Comments: See Note; NOTES: [facility] Imaging Services [address] [place] [address] Verdana 4d Abdomen Single View MR#: [id number] Acct: [id number] Name: SHREYAS KATHLEEN Rep #: [id number] : 1950 F 66 From: Elias Finn MD PCP: Elsa Chopra Status: REG CLI Study: Abdomen Single View Date of Exam: 07/05/16 Exam# [id number] Ordering Dr: Elsa Chopra STUDY: X-RA Y [...] of the L1 vertebrae. ORDER # : [id number] RAD/Abdomen Single View IMPRESSION: Moderate amount of fecal material is seen in the colon. Electronically Signed: Elias Finn MD at 10:34 EDT Tel [phone], Service sup port [phone], CC: Elsa Chopra Director Of Midwifery/Staff Midwife: Signed 18-May-2016 Bilat Scrn Digital AND CAD Result: Comments: See Note; NOTES: [facility] Imaging Services [address] [place] [address] Verdana 4d Bilat Scrn Digital AND CAD MR#: [id number] Acct: [id number] Name: HEVERJACINTO Crockett Rep #: [id number] : 1950 F 65 From: Elais Finn MD PCP: Elsa Chopra Status: REG CLI Study: [place] Digital AND CAD Date of Exam: 05/18/16 Exam# [id number] Ordering Dr: Elsa Chopra MAMMOGRAPHY - BILATERAL [...] no significant change since the prior study. [facility]/[place] Digital AND CAD IMPRESSION: Stab le bilateral screening mammogram. Yearly follow-up mammogram recommended. (A) ASSESSMENT CATEGORY: BIRADS Category 1: Negative. A letter regarding these results yane l be sent to the patient by the facility within 30 days. Approximately 10% of breast cancers are not detected by mammography. A normal mammogram should not delay biopsy of a clinically suspicious abnor mality. [id number] Electronically Signed: Elias Finn MD at 12:53 EDT Tel [phone], Service support [phone], CC: Elsa Chopra Director Of Midwifery/Staff Midwife: Signed 14-Feb-2016 Shoulder min 2 Views Result: Comments: See Note; NOTES: [facility] Imaging Services [address] [place] [address] Verdana 4d Shoulder min 2 Views MR#: [id number] Acct: [id number] Name: SHREYAS KATHLEEN Rep #: [id number] : 1950 F 65 From: Herve Jimenez MD PCP: Madeline Florez DO Status: REG CLI Study: Shoulder min 2 Views Date of Exam: 02/14/16 Exam# [id number] Ordering Dr: Pascale Boston DO STUDY: X-RAY [...] FACR at 14:50 EDT , Service support [phone], Fax RAD/Shoulder min 2 Views IMPRESSION: Bilateral of the acromioclavicular joint, otherwise normal x-ray examination of the shoulder. Electronically Signed: Herve Jimenez MD, FACR at 14:50 EDT , Service support [phone], CC: Pascale Boston DO; Madeline Florez DO Director Of Midwifery/Staff Midwife: Signed 21-Oct-2015 Spirometry (21050) Comments: mod restriction Result: 19-Sep-2015 Chest PA and Lateral Result: Comments: See Note; NOTES: [facility] Imaging Services [address] [place] [address] Nidiadana 4d Chest PA and Lateral MR#: [id number] Acct: [id number] Name: SHREYAS KATHLEEN Rep #: [id number] : 1950 F 65 From: Elias Finn MD PCP: Madeline Florez DO Status: REG CLI Study: Chest PA and Lateral Date of Exam: 09/19/15 Exam# [id number] Ordering Dr: Madeline Florez DO STUDY: X-RAY [...] Elias Finn MD at 13:58 EST Tel [phone], Service support [phone], RAD/Chest PA and Lateral IMPRESSION: Stable examination. No acute abnormality is seen. Electronically Doris d: Elias Finn MD at 13:58 EST Tel [phone], Service support [phone], CC: Madeline Florez DO Director Of Midwifery/Staff Midwife: Signed 25-Aug-2015 Spine Lumbar (Routine) Result: Comments: See Note; NOTES: [facility] Imaging Services [address] [place] [address] Verdavinayak 4d Spine Lumbar (Routine) MR#: [id number] Acct: [id number] Name: SHREYAS MAJOR Rep #: [id number] : 1950 F 65 From: Herve Jimenez MD PCP: Madeline Florez DO Status: REG CLI Study: Spine Lumbar (Routine) Date of Exam: 08/25/15 Exam# [id number] Ordering Dr: ELIZABETH DE LEON M.D. STUDY: [...] FACR at 17:43 EST , Service support [phone], CC: ELIZABETH DE LEON M.D.; Madeline Florez DO Director Of Midwifery/Staff Midwife: Signed 25-Aug-2015 Spine Thoracic (Routine) Result: Comments: See Note; NOTES: [facility] Imaging Services [address] [place] [address] Verda 4d Spine Thoracic (Routine) MR#: [id number] Acct: [id number] Name: SHREYAS SHARIF Rep #: [id number] : 1950 F 65 From: Herve Jimenez MD PCP: Madeline Florez DO Status: REG CLI Study: Spine Thoracic (Routine) Date of Exam: 08/25/15 Exam# [id number] Ordering Dr: ELIZABETH RUIZ M.D. STUDY: MRI [...] FACR at 17:45 EST , Service support [phone], CC: ELIZABETH DE LEON M.D.; Komal Florez DO Director Of Midwifery/Staff Midwife: Signed 17-Aug-2015 Chest PA and Lateral Result: Comments: See Note; NOTES: [facility] Imaging Services [address] [place] [address] [place] [address] 4d Chest PA and Lateral MR#: [id number] Acct: [id number] Name: SHREYAS KATHLEEN Rep #: [id number] : 1950 F 65 From: Elias Finn MD PCP: Madeline Florez DO Status: REG CLI Study: Chest PA and Lateral Date of Exam: 08/17/15 Exam# [id number] Ordering Dr: Madeline Florez DO STUDY: X-RAY [...] Elias Finn MD at 11:09 EST Tel [phone], Service support [phone], Fax RAD/Chest PA and Lateral IMPRESSION: Residual changes persist in the right middle lobe and there has been some improvement. Further followup is recommended. Electr onically Signed: Elias Finn MD at 11:09 EST Tel [phone], Service support [phone], CC: Madeline Florez DO Director Of Midwifery/Staff Midwife: Signed 12-Aug-2015 Discharge Instruction Result: Comments: See Note; NOTES: [facility] Medical Records Department [address] [place] [address] Discharge Instruction 08/10/15 1702 MR#: [id number] Acct: [id number] Name: SHREYAS KATHLEEN Rep #: [id number] : 1950 65 From: Denny Bone MD [...] problems, contact your doctor. Call [facility] ([phone]) or report to the closest Emergency Room. Call 911 if necessary. 08/12/15 1502 <Elect ronically signed by Denny Bone MD> Date Denny Bone MD Cosigner Signature (If Indicated): Date CC: Madeline Florez DO 12-Aug-2015 Emergency Department Summary Result: Comments: See Note; NOTES: [facility] Medical Records Department [address] [place] [address] Emergency Department Summary MR#: [id number] Acct: [id number] Name: SHREYAS KATHLEEN Rep #: [id number] : 1950 65 From: Denny Bone MD [...] the patient had blood cultures obtained at [facility] and they were called to Dr. [...] C: Madeline Bonilla MD T: NTS JOB: [id number] 08/12/15 1502 <Electronically signed by Denny Bone MD> Date Denny Bone MD Cosigner Signature (If Indicated): Date ___ CC: Madeline Florez DO; Katelyn Arenas MD Date Dictated: 08/10/151708 Date Transcribed: 08/10/151708 Director Of Midwifery/Staff Midwife: Signed Social History Name Dates Details No [...] kg/m2 Body Surface Area Calculated 1.85 m2 79-Gwd-830125:46 Temperature 97.5 f Pulse 89 /min Comments: [...] unknown, given order todayLast vision screen 2014 [employer]na Temperature 98.3 f Pulse 75 /min Comments: [...] Comments: PATIENT NOT FASTINGPERFORMED BY: NEY [facility] Bbkiua6334 [facility] [id number] Bacteria None seen (Normal) Mucus Threads Present (Normal) Cast Type Hyaline casts (Normal) Casts Present {/lpf} (Abnormal) Epithelial Cells (non renal) 0-10 {/hpf} (Normal) Range: 0 - 10 RBC None seen {/hpf} (Normal) Range: 0 - 2 WBC 0-5 {/hpf} (Normal) Range: 0 - 5 66-Ovg-193378:42 URINALYSIS (84704) Comments: PATIENT NOT FASTINGPERFORMED BY: [employer] [facility] [id number] Information: SRC:UC Microscopic Examination See below: (Normal) Comments: Microscopic was indicated and was performed. Nitrite, Urine Negative (Normal) Urobilinogen,Semi-Qn 0.2 mg/dL (Normal) Range: 0.2-1.0 Bilirubin Negative (Normal) Occult Blood Negative (Normal) Ketones Negative (Normal) Glucose Trace (Abnormal) Protein Trace (Normal) WBC Esterase Trace (Abnormal) Appearance Clear (Normal) Urine-Color Yellow (Normal) pH 7.0 (Normal) Range: 5.0-7.5 Specific [place] 1.010 (Normal) Range: 1.005-1.030 78-Til-634549:42 URINE RANDELL CULTURE-IDENTIFICATN Comments: PATIENT NOT FASTINGPERFORMED BY: [employer] [facility] [id number] (26342) Result 1 MUG (Normal) Comments: Mixed urogenital flora25,000-50,000 colony forming units per mL Urine Final report (Normal) Culture,Comprehensive 96-Vwu-890167:49 PARATHORMONE (70123) Comments: PATIENT NOT FASTINGPERFORMED BY: [employer] Metfce0219 [facility] [id number] PTH, Intact 45 pg/mL (Normal) Range: 15-65 39-Zsw-134602:49 CBC, Platelets & Auto Diff Comments: PATIENT NOT FASTINGPERFORMED BY: [employer] Zspxsv9307 [facility] [id number] (86660) Immature Grans (Abs) 0.0 {x10E3/uL} (Normal) Range: [...] 3.77-5.28 WBC 11.4 {x10E3/uL} (Abnormal) Range: 3.4-10.8 92-Jbe-017634:49 Metabolic Panel, Comprehensive Comments: PATIENT NOT FASTINGPERFORMED BY: LabCoLyons [facility] Medical CenterAvtozs8051 [facility] [id number] (29689) ALT (SGPT) 9 [iU]/L (Normal) Range: 0-32 [...] 8-27 Glucose 136 mg/dL (Abnormal) Range: 65-99 75-Aht-567925:44 URINE CALCIUM ZEINAB TIMED Comments: PATIENT NOT FASTINGPERFORMED BY: NEY [employer] [facility] [id number] Information: START 07/30/18@7AM (39044) Calcium, Urine 24hr 56.0 {mg/24_hr} (Abnormal) Range: 100.0-300.0 Calcium, Urine 2.8 mg/dL (Normal) 06-Ddq-992919:26 HgA1C , Office (27237) HgA1C , Office 6.4 % (Normal) Range: 4.6 - 7.1 97-Tip-117437:26 Blood Glucose , Office (75229) Blood Glucose , Office 163 (Normal) 17-Hba-95956:00 MICROALBUMIN: CREATININE RATIO Comments: Jun 19; PATIENT WAS FASTINGPERFORMED BY: [employer] [facility] [id number] (22319) AND (34187) Alb/Creat Ratio 266.9 {mg/g_creat} (Abnormal) Range: 0.0-30.0 Albumin, Urine 168.7 ug/mL (Normal) Creatinine, Urine 63.2 mg/dL (Normal) 40-Ptg-67088:00 Metabolic Panel, Comprehensive Comments: Jun 19; PATIENT WAS FASTINGPERFORMED BY: [employer] [facility] [id number] (22974) ALT (SGPT) 14 [iU]/L (Normal) Range: 0-32 [...] 8-27 Glucose 121 mg/dL (Abnormal) Range: 65-99 54-Dec-01733:00 HGB A1C (86262) Comments: June 19; PATIENT WAS FASTINGPERFORMED BY: VPEP70 [facility] [id number] Hemoglobin A1c 7.0 % (Abnormal) Range: 4.8-5.6 Comments: . Prediabetes: 5.7 - 6.4 Diabetes: >6.4 Glycemic control for adults with diabetes: <7.0 29-Btu-300837:33 ALKALINE PHOSPHATASE-ISOENZYM Comments: PATIENT NOT FASTINGPERFORMED BY: [facility] [id number] (69081) Intestinal Frac.: 0 % (Normal) Range: 0-18 Bone Fraction: 27 % (Normal) Range: 14-68 Liver Fraction: 73 % (Normal) Range: 18-85 Alkaline Phosphatase 89 [iU]/L (Normal) Range: 39-117 45-Bef-776100:33 CBC, Platelets & Auto Diff Comments: PATIENT NOT FASTINGPERFORMED BY: [facility] Kukiya6834 [place] [id number] (30394) Immature Grans (Abs) 0.0 {x10E3/uL} (Normal) Range: [...] 3.77-5.28 WBC 5.9 {x10E3/uL} (Normal) Range: 3.4-10.8 56-Eou-293742:22 HgA1C , Office (37179) Comments: 7.3 HgA1C , Office 7.3 % (Abnormal) Range: 4.6 - 7.1 49-Upc-730846:22 Blood Glucose , Office (46654) Blood Glucose , Office 173 (Normal) 61-Iiw-02424:40 Basic Metabolic Profile (BMP) Comments: SEND RESULTS OF BMP TO .[facility] [address] [place], [place], [id number] GAP 11 (Normal) Range: 5-15 CO2 27.0 [...] A.D.A. criteria.Please note revised GLUCOSE reference range ffqjhmxye56/02/2018. 79-Gya-89788:40 Liver Profile Comments: SEND RESULTS OF BMP TO .[facility] [address] [place], [place], [address] D BILI 0.09 mg/dL (Normal) Range: 0.00-0.30 T BILI 0.40 mg/dL (Normal) Range: 0.20-1.00 ALT 22 U/L (Normal) Range: 13-56 ALK P 103 U/L (Normal) Range: 45-117 AST 17 U/L (Normal) Range: 15-37 GLOB 4.0 g/dL (Normal) Range: 2.2-4.2 ALB 3.8 g/dL (Normal) Range: 3.2-5.0 T PROT 7.8 g/dL (Normal) Range: 6.4-8.2 40-Zqh-752013:41 CALCIFEDIOL (07174) Comments: PATIENT WAS FASTINGPERFORMED BY: [facility]Mer[facility] WashingtonOlpsek2919 [facility] [id number] Vitamin D, 25-Hydroxy 44.2 ng/mL (Normal) Range: 30.0-100.0 Comments: Vitamin D deficiency has been defined by the [place] and an Endocrine Society practice guideline as alevel of serum 25-OH vitamin D less than 20 ng/mL (1,2).The Endocrine Society went on to further define vitamin Dinsufficiency as a level between 21 and 29 ng/mL (2).1. IOM ([place] [employer]). 2010. Dietary reference intakes for calcium and D. [place]: The National Academies Press.2. Jacinto MF, Eddy NC, Quintin JAVED, et al. Evaluation, treatment, and prevention of vitamin D deficiency: an Endocrine Society clinical practice guideline. JCEM. 2010; 96(7):1911-30. 02-Wxb-406321:41 METABOLIC PANEL, Comments: PATIENT WAS FASTINGPERFORMED BY: [facility]Tr[facility] Livonia6370 [facility] [id number] Information: 686819,V37815; OV 03/19 COMPREHENSIVE (40674) ALT (SGPT) 15 [iU]/L (Normal) Range: 0-32 [...] 8-27 Glucose 143 mg/dL (Abnormal) Range: 65-99 98-Qhr-676462:31 Blood Glucose , Office (86000) Blood Glucose , Office 211 (Normal) 82-Ksh-345530:31 HgA1C , Office (87030) HgA1C , Office 6.8 % (Normal) Range: 4.6 - 7.1 :33 CBC, Platelets & Auto Diff Comments: PATIENT WAS FASTINGPERFORMED BY: LabCoLyons [facility] Medical CenterTrbjvu6697 [facility] [id number] (84660) Immature Grans (Abs) 0.0 {x10E3/uL} (Normal) Range: [...] 3.77-5.28 WBC 7.7 {x10E3/uL} (Normal) Range: 3.4-10.8 55-Lee-400626:33 Lipid Panel (89458) Comments: PATIENT WAS FASTINGPERFORMED BY: LOANZ Agsflc2127 [facility] [id number] LDL/HDL Ratio 0.9 {ratio} (Normal) Range: 0.0-3.2 Comments: LDL/HDL Ratio Men Women 1/2 Avg.Risk 1.0 1.5 Av g.Risk 3.6 3.2 2X Avg.Risk 6.2 5.0 3X Avg.Risk 8.0 6.1 LDL Cholesterol Calc 35 mg/dL (Normal) Range: 0-99 VLDL Cholesterol Kiesha 53 mg/dL (Abnormal) Range: 5-40 HDL Cholesterol 41 mg/dL (Normal) Triglycerides 264 mg/dL (Abnormal) Range: 0-149 Cholesterol, Total 129 mg/dL (Normal) Range: 100-199 07-Wnh-005160:33 Metabolic Panel, Comprehensive Comments: PATIENT WAS FASTINGPERFORMED BY: [facility] Blszev0126 [facility] [id number] (13967) ALT (SGPT) 18 [iU]/L (Normal) Range: 0-32 [...] CREATININE RATIO Comments: PATIENT WAS FASTINGPERFORMED BY: [facility] [id number] (98409) AND (02705) Alb/Creat Ratio 225.5 {mg/g_creat} (Abnormal) Range: 0.0-30.0 Albumin, Urine 112.5 ug/mL (Normal) Creatinine, Urine 49.9 mg/dL (Normal) :33 URINALYSIS (02327) Comments: PATIENT WAS FASTINGPERFORMED BY: [facility] [id number] Microscopic Examination See below: (Normal) Comments: Microscopic was indicated and was performed. Nitrite, Urine Negative (Normal) Urobilinogen,Semi-Qn 0.2 mg/dL (Normal) Range: 0.2-1.0 Bilirubin Negative (Normal) Occult Blood Negative (Normal) Ketones Negative (Normal) Glucose Negative (Normal) Protein Trace (Normal) WBC Esterase 2+ (Abnormal) Appearance Clear (Normal) Urine-Color Yellow (Normal) pH 6.5 (Normal) Range: 5.0-7.5 Specific [place] 1.014 (Normal) Range: 1.005-1.030 :33 TSH (94679) Comments: PATIENT WAS FASTINGPERFORMED BY: [facility] [id number] TSH 3.870 {uIU/mL} (Normal) Range: 0.450-4.500 58-Iie-201941:33 Microscopic Examination Comments: PATIENT WAS FASTINGPERFORMED BY: [employer] Jwmbmk3940 [facility] [id number] Bacteria Few (Normal) Mucus Threads Present (Normal) Cast Type Hyaline casts (Normal) Casts Present {/lpf} (Abnormal) Epithelial Cells (non renal) >10 {/hpf} (Abnormal) Range: 0 - 10 RBC 0-2 {/hpf} (Normal) Range: 0 - 2 WBC 11-30 {/hpf} (Abnormal) Range: 0 - 5 :57 HgA1C , Office (87055) Comments: 6.6 HgA1C , Office 6.6 % (Normal) Range: 4.6 - 7.1 :57 Blood Glucose , Office (14155) Blood Glucose , Office 211 (Normal) :53 HEPATIC FUNCTION PANEL Comments: PATIENT NOT FASTINGPERFORMED BY: [employer] [facility] [id number] ([id number]) ALT (SGPT) 13 [iU]/L (Normal) Range: 0-32 AST (SGOT) 17 [iU]/L (Normal) Range: 0-40 Alkaline Phosphatase, S 89 [iU]/L (Normal) Range: 39-117 Bilirubin, Direct 0.08 mg/dL (Normal) Range: 0.00-0.40 Bilirubin, Total <0.2 mg/dL (Normal) Range: 0.0-1.2 Albumin, Serum 4.2 g/dL (Normal) Range: 3.6-4.8 Protein, Total, Serum 6.8 g/dL (Normal) Range: 6.0-8.5 :53 IMEHH-RYGVTMFRZDQ-ICICM (79451) Comments: PATIENT NOT FASTINGPERFORMED BY: [employer] Fdqyda7420 [facility] [id number] AFP, Serum, Tumor Marker 2.6 ng/mL (Normal) Range: 0.0-8.3 Comments: [place] ECLIA methodology :53 ALKALINE PHOSPHATASE-ISOENZYM Comments: PATIENT NOT FASTINGPERFORMED BY: [employer] Okuuqv6702 [facility] [id number] (51769) Intestinal Frac.: 5 % (Normal) Range: 0-18 Bone Fraction: 24 % (Normal) Range: 14-68 Liver Fraction: 71 % (Normal) Range: 18-85 35-Hgl-506982:11 ALKALINE PHOSPHATASE-ISOENZYM Comments: PATIENT NOT FASTINGPERFORMED BY: CB [facility] Cyirji0489 [address]ana RoadDublin [place] [id number] (61954) Intestinal Frac.: 3 % (Normal) Range: 0-18 Bone Fraction: 19 % (Normal) Range: 14-68 Liver Fraction: 78 % (Normal) Range: 18-85 Alkaline Phosphatase, S 122 [iU]/L (Abnormal) Range: 39-117 :11 CALCIFEDIOL (77002) Comments: PATIENT NOT FASTINGPERFORMED BY: CB [facility] Tsohel0066 [address]ana RoadDublin [place] [id number] Vitamin D, 25-Hydroxy 37.5 ng/mL (Normal) Range: 30.0-100.0 Comments: Vitamin D deficiency has been defined by the [place] and an Endocrine Society practice guideline as alevel of serum 25-OH vitamin D less than 20 ng/mL (1,2).The Endocrine Society went on to further define vitamin Dinsufficiency as a level between 21 and 29 ng/mL (2).1. IOM ([place] [employer]). 2010. Dietary reference intakes for calcium and D. [place]: The National Academies Press.2. Jacinto MF, Eddy NC, Quintin JAVED, et al. Evaluation, treatment, and prevention of vitamin D deficiency: an Endocrine Society clinical practice guideline. JCEM. 2010; 96(7):1911-30. 98-Qlj-805843:11 TSH (88837) Comments: PATIENT NOT FASTINGPERFORMED BY: CB [facility] Pwwkry4[address] RoadDublin [place] [id number] TSH 1.620 {uIU/mL} (Normal) Range: 0.450-4.500 86-Ype-516421:11 T4, FREE (THYROXINE) (86471) Comments: PATIENT NOT FASTINGPERFORMED BY: CB [facility] Cwzjla9909 [address] RoadDublin [place] [id number] T4,Free(Direct) 1.00 ng/dL (Normal) Range: 0.82-1.77 74-Ibn-444667:11 T3, FREE (TRIDOTHYRONINE) (94100) Comments: PATIENT NOT FASTINGPERFORMED BY: NEY [facility] Hadmvm2672 [facility] [id number] Triiodothyronine,Free,Serum 2.5 pg/mL (Normal) Range: 2.0-4.4 :08 HgA1C , Office (29330) HgA1C , Office 7.4 % (Abnormal) Range: 4.6 - 7.1 :08 Blood Glucose , Office (50281) Blood Glucose , Office 190 (Normal) :30 Lipid Profile Comments: Order Date: 12/12/16Order Info: 0788-1 - *Hepatic Function PanelOrder Info: 47235-9 - *Lipid Profile CC PCPComments: 12 hours fasting, may have water.Comments: 6 months / [facility] Wweufweoku[address] [place], [place], [address] VLDL 46 mg/dL (Abnormal) Range: 5-40 LDL [...] Info: 0788-1 - *Hepatic Function PanelOrder Info: 19789-4 - *Lipid Profile CC PCPComments: 12 hours fasting, may have water.Comments: 6 months / pre [facility] [address]egtct[address] [place], [address] D BILI 0.11 mg/dL (Normal) Range: 0.00-0.30 [...] of Apr 09; PATIENT NOT FASTINGPERFORMED BY: Millican SantanaSimpliFieldSwain Community Hospital [id number] HORMONE) (99998) TSH 0.728 {uIU/mL} (Normal) Range: 0.450-4.500 :55 HgA1C , Office (63581) HgA1C , Office 6.9 % (Normal) Range: 4.6 - 7.1 :55 Blood Glucose , Office (45542) Blood Glucose , Office 143 (Normal) 62-Bvh-759885:11 Microscopic Examination Comments: PATIENT WAS FASTINGPERFORMED BY: Millican [address] [facility] [id number] Bacteria Few (Normal) Mucus Threads Present (Normal) Cast Type Hyaline casts (Normal) Casts Present {/lpf} (Abnormal) Epithelial Cells (non renal) 0-10 {/hpf} (Normal) Range: 0 - 10 RBC 0-2 {/hpf} (Normal) Range: 0 - 2 WBC 6-10 {/hpf} (Abnormal) Range: 0 - 5 30-Qsj-047995:11 URINALYSIS, W/ MICRO (43767) Comments: January 2017; PATIENT WAS FASTINGPERFORMED BY: Millican [facility] [id number] Microscopic Examination See below: (Normal) Comments: Microscopic was indicated and was performed. Nitrite, Urine Negative (Normal) Urobilinogen,Semi-Qn 0.2 mg/dL (Normal) Range: 0.2-1.0 Bilirubin Negative (Normal) Occult Blood Negative (Normal) Ketones Negative (Normal) Glucose Trace (Abnormal) Protein 1+ (Abnormal) WBC Esterase 1+ (Abnormal) Appearance Clear (Normal) Urine-Color Yellow (Normal) pH 6.5 (Normal) Range: 5.0-7.5 Specific [place] 1.016 (Normal) Range: 1.005-1.030 72-Ysc-369009:11 MICROALBUMIN: CREATININE RATIO Comments: January 2017; PATIENT WAS FASTINGPERFORMED BY: VPEP70 AvvoSwain Community Hospital [id number] (58032) AND (94338) Microalb/Creat Ratio 208.2 {mg/g_creat} (Abnormal) Range: 0.0-30.0 Microalbumin, Urine 182.2 ug/mL (Normal) Creatinine, Urine 87.5 mg/dL (Normal) 86-Zyd-326503:11 CBC, Platelets & Auto Diff Comments: January 2017; PATIENT WAS FASTINGPERFORMED BY: SafeRent6370 [facility]voSw[facility] Hospital [id number] (41554) Immature Grans (Abs) 0.0 {x10E3/uL} (Normal) Range: [...] 3.77-5.28 WBC 5.6 {x10E3/uL} (Normal) Range: 3.4-10.8 60-Qor-294031:11 Metabolic Panel, Comprehensive Comments: January 2017; PATIENT WAS FASTINGPERFORMED BY: LabCoLyons VA Medical CenterVuzsch2630 [facility] [id number] (06823) ALT (SGPT) 13 [iU]/L (Normal) Range: 0-32 [...] Glucose, Serum 120 mg/dL (Abnormal) Range: 65-99 80-Kve-937302:11 TSH (THYROID STIMULATING Comments: January 2017; PATIENT WAS FASTINGPERFORMED BY: [facility] Mxollt1434 [facility] [id number] HORMONE) (65763) TSH 0.982 {uIU/mL} (Normal) Range: 0.450-4.500 3-Rsd-234871:02 Lipid Profile Comments: Order Date: 12/04/16Order Info: 0788-1 - *Hepatic Function PanelOrder Date: 12/04/16Order Info: [id number] - *Lipid Profile CC PCPComments: 12 hours fasting, may have water.[place] [address] [place], [place], [address] VLDL 36 mg/dL (Normal) Range: 5-40 LDL [...] 200-240 mg/dL Borderline >240 mg/dL High Risk 8-Qku-638353:02 Liver Profile Comments: Order Date: 12/04/16Order Info: [id number] - *Hepatic Function PanelOrder Date: 12/04/16Order Info: [id number] - *Lipid Profile CC PCPComments: 12 hours fasting, may have water.[place] [address] [place], [place], [address] D BILI 0.07 mg/dL (Normal) Range: 0.00-0.30 T BILI 0.30 mg/dL (Normal) Range: 0.20-1.00 ALT 21 U/L (Normal) Range: 12-78 ALK P 112 U/L (Normal) Range: 45-117 AST 19 U/L (Normal) Range: 15-37 GLOB 3.8 g/dL (Abnormal) Range: 2.3-3.5 ALB 3.4 g/dL (Normal) Range: 3.4-5.0 T PROT 7.2 g/dL (Normal) Range: 6.4-8.2 89-Drq-850952:29 URINE RANDELL CULTURE-ZEINAB COL Comments: PATIENT NOT FASTINGPERFORMED BY: [employer] [facility] [id number] Information: SRC:UC COUNT (68326) Result 1 MUG (Normal) Comments: Mixed urogenital flora25,000-50,000 colony forming units per mL Urine Final report (Normal) Culture,Comprehensive 20-Tsf-034115:53 Urinalysis, Office (08940) UA - LEUKOCYTE ESTERASE Small (Normal) UA - NITRITE Negative (Normal) URINE UROBILINGN ZEINAB TIMED Normal mg/dL (Normal) UA - PROTEIN Negative mg/dL (Normal) UA - PH 7 (Normal) UA - BLOOD Negative (Normal) UA - SPECIFIC GRAVITY 1.020 (Normal) UA - KETONES Negative mg/dL (Normal) UA - BILIRUBIN Small (Normal) UA - GLUCOSE Negative (Normal) 98-Nkn-825293:51 Blood Glucose , Office (40480) Comments: 169 Blood Glucose , Office 169 (Normal) 14-Muw-150289:52 HgA1C , Office (10128) Comments: 7.0 HgA1C , Office 7.0 % (Normal) Range: 4.6 - 7.1 :22 URINE RANDELL CULTURE-IDENTIFICATN Comments: PATIENT NOT FASTINGPERFORMED BY: LabCoLyons VA Medical CenterKfcbsl7881 [facility] [id number] Information: SRC:UC (95293) Result 1 MUG (Normal) Comments: Mixed urogenital flora10,000-25,000 colony forming units per mL Urine Final report (Normal) Culture,Comprehensive 44-Ugr-482706:05 Urinalysis, Office (96746) UA - LEUKOCYTE ESTERASE Negative (Normal) UA - NITRITE Negative (Normal) URINE UROBILINGN ZEINAB TIMED Normal mg/dL (Normal) UA - PROTEIN 30 mg/dL (Normal) UA - PH 6 (Abnormal) UA - BLOOD non-hemolyzed trace (Normal) UA - SPECIFIC GRAVITY 1.020 (Normal) UA - KETONES Negative mg/dL (Normal) UA - BILIRUBIN Negative (Normal) UA - GLUCOSE 100 (Abnormal) :42 HgA1C , Office (39001) HgA1C , Office 6.2 % (Normal) Range: 4.6 - 7.1 :42 Blood Glucose , Office (08310) Blood Glucose , Office 137 (Normal) 1-Lwf-906084:01 TSH (THYROID STIMULATING Comments: PATIENT NOT FASTINGPERFORMED BY: Journal[facility] OnlineSw[facility] [id number] HORMONE) (66258) TSH 1.820 {uIU/mL} (Normal) Range: 0.450-4.500 :03 HEPATIC FUNCTION PANEL Comments: PATIENT NOT FASTINGPERFORMED BY: [facility] OnlineSw[facility] [id number] (03060) ALT (SGPT) 15 [iU]/L (Normal) Range: 0-32 AST (SGOT) 23 [iU]/L (Normal) Range: 0-40 Alkaline Phosphatase, S 95 [iU]/L (Normal) Range: 39-117 Bilirubin, Direct 0.12 mg/dL (Normal) Range: 0.00-0.40 Bilirubin, Total 0.3 mg/dL (Normal) Range: 0.0-1.2 Albumin, Serum 4.3 g/dL (Normal) Range: 3.6-4.8 Protein, Total, Serum 7.3 g/dL (Normal) Range: 6.0-8.5 :03 HMGBN-THVPCJGBSQD-EUVAX (29206) Comments: PATIENT NOT FASTINGPERFORMED BY: Journal[facility] OnlineSw[facility] [id number] AFP, Serum, Tumor Marker 2.8 ng/mL (Normal) Range: 0.0-8.3 Comments: BeepiIA methodology 8-Yuj-208562:03 HEPATITIS PANEL (47294) Comments: PATIENT NOT FASTINGPERFORMED BY: [facility] Ewmifw[address]50 [address] [facility] [id number] Hep C Virus Ab <0.1 {s/co_ratio} (Normal) Range: 0.0-0.9 Comments: Negative: < 0.8 Indeterminate: 0.8 - 0.9 Positive: > 0.9 . The CDC recommends that a positive HCV antibody result be followed up with a HCV Nucleic Acid Amplification test (339272). Hep B Core Ab, IgM Negative (Normal) HBsAg Screen Negative (Normal) Hep A Ab, IgM Negative (Normal) :58 CBC W/Diff, Automated Comments: CBCD FOR DR CHATMANLakeville Hospitalisma [facility] [address] [place], [address] Absolute Lymph 1.84 {X10_3/ul} (Normal) Range: 0.83-4.51 [...] Comments: Order Date: 05/14/16Interface Comments: Reason:Order Date: 05/14/16[facility] [address] [place], [place], [address] T4 THYROXIN 11.6 ug/dL (Normal) Range: 4.8-13.9 :58 Thyroid Stim Hormone (TSH) Comments: Order Date: 05/14/16Interface Comments: Reason:Order Date: 05/14/16[facility] [address]arsdf[address] [place], [address] TSH 1.96 {uIU/mL} (Normal) Range: 0.358-3.74 :11 Urinalysis, Office (96996) UA - LEUKOCYTE ESTERASE Small (Normal) UA - NITRITE Negative (Normal) URINE UROBILINGN ZEINAB TIMED Normal mg/dL (Normal) UA - PROTEIN 30 mg/dL (Normal) UA - PH 6 (Abnormal) UA - BLOOD Negative (Normal) UA - SPECIFIC GRAVITY 1.010 (Normal) UA - KETONES Negative mg/dL (Normal) UA - BILIRUBIN Negative (Normal) UA - GLUCOSE Negative (Normal) :50 Basic Metabolic Profile (BMP) Comments: [facility] [address] [place], [place], [address] GAP 7 (Normal) Range: 5-15 CO2 33.0 [...] 100 mg/dL (Normal) Range: 70-110 :48 MAGNESIUM (72210) Comments: PATIENT NOT FASTINGPERFORMED BY: SafeRent6370 [facility] [id number] Magnesium, Serum 1.6 mg/dL (Normal) Range: 1.6-2.3 :48 TSH (THYROID STIMULATING Comments: PATIENT NOT FASTINGPERFORMED BY: Fixetude [facility] Mklnlf5389 [facility] [id number] HORMONE) (42014) TSH 6.340 {uIU/mL} (Abnormal) Range: 0.450-4.500 :48 URIC ACID BLOOD (26706) Comments: PATIENT NOT FASTINGPERFORMED BY: Fixetude [facility] Nwhbvi0849 [facility] [id number] Uric Acid, Serum 6.1 mg/dL (Normal) Range: 2.5-7.1 Comments: Therapeutic target for gout patients: <6.0 :09 Blood Glucose , Office (59448) Blood Glucose , Office 116 (Normal) :09 HgA1C , Office (72545) HgA1C , Office 6.7 % (Normal) Range: 4.6 - 7.1 :19 Basic Metabolic Profile (BMP) Comments: Order Date: 03/12/16OV Order #: [id number] Hospital [address]whzqck[address] [place], [address] GAP 7 (Normal) Range: 5-15 CO2 29.0 [...] Thyroxin Comments: Order Date: 03/12/16 Order #: [id number] Good Samaritan Hospital [address] [place], [place], [address] T4 THYROXIN 9.4 ug/dL (Normal) Range: 4.8-13.9 :19 Thyroid Stim Hormone (TSH) Comments: Order Date: 03/12/16 Order #: [id number] Good Samaritan Hospital [address]eepwszn[address] [place], [place], [address](970) TSH 5.44 {uIU/mL} (Abnormal) Range: 0.358-3.74 20-Tyv-999422:49 Aerobic Bacterial Culture Comments: PATIENT NOT FASTINGPERFORMED BY: [facility] Pivvjg8779 [facility] [id number] Information: RT AXILLA Result 1 MRSA (Abnormal) [...] Comments: PATIENT NOT FASTINGPERFORMED BY: CB [facility] Emwkiq9330 [address] RoadDublin [place] [id number] Information: NASAL 5:49 Culture 63-Ufu-363171:20 Basic Metabolic Profile (BMP) Comments: [facility] [address] [place], [address] GAP 7 (Normal) Range: 5-15 CO2 29.0 [...] A.D.A. criteria. :02 Blood Glucose , Office (08137) Blood Glucose , Office 137 (Normal) :54 Urine Drug Screen (Office - WNL (Normal) Comments: pos for oxy, all else neg Urine Drug Screen 6 Panel) Comments: All negative except Oxy (08862) :52 HgA1C , Office (51677) Comments: 7.3 HgA1C , Office 7.3 % (Abnormal) Range: 4.6 - 7.1 4-Kud-628139:43 Basic Metabolic Profile (BMP) Comments: DR URBINA ORDERED BMPDR [facility]ATUR [facility] HOSPITALISPAW ORDERED LIVER LIPIDTrihealth Good Samaritan Hospital [address] [place], [address] GAP 3 (Abnormal) Range: 5-15 CO2 33.0 mmol/L (Abnormal) Range: 21.0-32.0 CL 102 mmol/L (Normal) Range: 98-107 K 3.4 mmol/L (Abnormal) Range: 3.5-5.1 Comments: ADDENDA: Denisse at [facility] aware of potassium level NA 138 mmol/L [...] 7-18 GLU 101 mg/dL (Normal) Range: 70-110 7-Dgu-872507:43 Lipid Profile Comments: DR URBINA ORDERED BMPDR MOODISPAW ORDERED LIVER LIPIDTrihealth Good Samaritan Hospital [address]esqciyzc[address] [place], [place], [address] VLDL 26 mg/dL (Normal) Range: 5-40 LDL [...] 200-240 mg/dL Borderline >240 mg/dL High Risk 2-Kpe-115983:43 Liver Profile Comments: DR URBINA ORDERED BMPDR MOODISLEANN ORDERED LIVER LIPIDWGerman Hospital Lhylookcdx[address] [place], [place], [address] D BILI 0.14 mg/dL (Normal) Range: 0.00-0.30 T BILI 0.40 mg/dL (Normal) Range: 0.20-1.00 ALT 16 U/L (Normal) Range: 12-78 ALK P 112 U/L (Normal) Range: 50-136 AST 19 U/L (Normal) Range: 15-37 GLOB 3.9 g/dL (Abnormal) Range: 2.3-3.5 ALB 3.0 g/dL (Abnormal) Range: 3.4-5.0 T PROT 6.9 g/dL (Normal) Range: 6.4-8.2 8-Sbc-875412:02 Blood Glucose , Office (11001) Blood Glucose , Office 160 (Normal) 39-Pep-697459:37 HgA1C , Office (72319) Comments: 7.2 HgA1C , Office 7.2 % (Abnormal) Range: 4.6 - 7.1 72-Pon-616536:24 MRSA Culture (78198) Comments: [facility] [address] [place], [place], [address] MRSA RESULT Negative (Normal) 1-Rwe-948004:59 Metabolic Panel, Basic Comments: send to Dr.Masroor Urbina; PATIENT NOT FASTINGPERFORMED BY: LabCoKayenta Health CenterGmpfvj1716 [facility] [id number] Information: [id number] (15215) Calcium, Serum 10.7 mg/dL (Abnormal) Range: 8.7-10.3 [...] Glucose, Serum 182 mg/dL (Abnormal) Range: 65-99 4-Kvo-263085:09 MRSA Culture (33562) Comments: [facility] [address] [place], [address] MRSA RESULT POSITIVE (Abnormal) :39 Lipid Profile Comments: [facility] [address] [place], [address] VLDL 23 mg/dL (Normal) Range: [...] mg/dL High Risk :39 Liver Profile Comments: [facility] [address] [place], [address] ; non-emergent and handled by [...] Range: 6.4-8.2 :39 T4 Total, Thyroxin Comments: [facility] [address] [place], [place], [address] T4 THYROXIN 10.9 ug/dL (Normal) Range: 4.8-13.9 :39 Thyroid Stim Hormone (TSH) Comments: [facility] [address] [place], [place], [address] TSH 3.63 {uIU/mL} (Normal) Range: 0.358-3.74 2-Rab-589439:13 LIPID PANEL (63995) Comments: PATIENT WAS FASTINGPERFORMED BY: LabCoGilian Technologies Vsourz6535 [facility] [id number] LDL/HDL Ratio 1.2 {ratio_units} (Normal) Range: 0.0-3.2 [...] Cholesterol, Total 160 mg/dL (Normal) Range: 100-199 1-Wgx-450628:13 CBC W/AUTO DIFF WBC Comments: PATIENT WAS FASTINGPERFORMED BY: LabCoExit41Pqmmtk9857 [facility] [id number] Information: [id number] (93409) Immature Grans (Abs) 0.0 {x10E3/uL} (Normal) Range: [...] 3.77-5.28 WBC 4.5 {x10E3/uL} (Normal) Range: 3.4-10.8 8-Ujh-922064:13 METABOLIC PANEL, COMPREHENSIVE Comments: PATIENT WAS FASTINGPERFORMED BY: LabCoLyons VA Medical CenterBypgwt2549 [facility] [id number] (00232) ALT (SGPT) 8 [iU]/L (Normal) Range: 0-32 [...] Glucose, Serum 109 mg/dL (Abnormal) Range: 65-99 8-Bcs-924793:15 Basic Metabolic Profile (BMP) Comments: [facility] [address] [place], [place], [address] GAP 7 (Normal) Range: 5-15 CO2 30.0 [...] 200 mg/dLsuggests DIABETES MELLITUS per A.D.A. criteria. 1-Pkv-411310:15 CBC W/Diff, Automated Comments: [facility] [address] [place], [place], [address] Absolute Lymph 0.95 {X10_3/ul} (Normal) Range: 0.83-4.51 [...] 4.2-5.4 WBC 5.4 K/mm3 (Normal) Range: 4.4-11.0 13-Dgh-278547:31 LIPID PANEL (23277) Comments: PATIENT WAS FASTINGPERFORMED BY: LabCoLyons VA Medical CenterDesiqn5152 [facility] [id number]; non-emergent till apt LDL/HDL Ratio 1.6 {ratio_units} [...] auto diff Comments: PATIENT WAS FASTINGPERFORMED BY: LabCoLyons VA Medical CenterDqtruv3281 [facility] [id number] Information: [id number] (63572) Immature Grans (Abs) 0.0 {x10E3/uL} (Normal) Range: [...] CREATININE RATIO Comments: PATIENT WAS FASTINGPERFORMED BY: Super Clean JobsiteLyons VA Medical CenterXoyzhg6798 [facility] [id number] (57271) AND (51414) Microalb/Creat Ratio 93.7 {mg/g_creat} (Abnormal) Range: 0.0-30.0 Microalbumin, Urine 196.4 ug/mL (Abnormal) Range: 0.0-17.0 Creatinine, Urine 209.7 mg/dL (Normal) Range: 15.0-278.0 84-Cue-225139:31 METABOLIC PANEL, COMPREHENSIVE Comments: PATIENT WAS FASTINGPERFORMED BY: [employer]6370 [facility] [id number] (12340) ALT (SGPT) 20 [iU]/L (Normal) Range: 0-32 [...] Glucose, Serum 120 mg/dL (Abnormal) Range: 65-99 27-Dqp-753148:31 Hemoglobin Glyclated (HGB A1C) Comments: PATIENT WAS FASTINGPERFORMED BY: [facility] Yukjbe2095 [address] [facility] [id number] (53698) Hemoglobin A1c 7.6 % (Abnormal) Range: 4.8-5.6 Comments: . Pre-diabetes: 5.7 - 6.4 Diabetes: >6.4 Glycemic control for adults with diabetes: <7.0 29-Ehm-941777:30 Urinalysis, Complete Comments: Order Date: 07/18/15How was Urine Obtained? CLEAN [facility] Tpbvkqhklc8984 [facility] [place], [address] MUCUS, URINE 0 SEEN {/hpf} [...] (Abnormal) CLARITY Clear (Normal) COLOR Yellow (Normal) 95-Izn-248839:43 CBC W/Diff, Automated Comments: [facility] Ebelcjvvgg0820 [facility] [place], [address] PATH REV May foll (Normal) [...] 4.2-5.4 WBC 15.1 K/mm3 (Abnormal) Range: 4.4-11.0 35-Yxz-091335:43 Comprehensive Metabolic Profil Comments: [facility] [address] [place], [place], [address] GAP 8 (Normal) Range: 5-15 CO2 33.0 [...] 200 mg/dLsuggests DIABETES MELLITUS per A.D.A. criteria. 18-Aqi-320025:43 Lactic Acid Comments: Comments: To be drawn 6H after initial specimenWGerman Hospital [address]ol[address] [place], [place], [address](479) LACTIC ACID 1.7 mmol/L (Normal) Range: 0.4-2.0 55-Ycn-608055:43 Magnesium Comments: [facility] [address] [place], [address] MG 1.3 mg/dL (Abnormal) Range: 1.8-2.4 04-Xxl-188032:43 Partial Thromboplast Time Comments: [facility] [address] [place], [address] PTT 31.4 s (Normal) Range: 24.1-36.2 48-Hcw-629892:43 Phosphorus Comments: [facility] [address] [place], [address] PHOS 1.0 mg/dL (Abnormal) Range: 2.5-4.9 Comments: Critical Result(s) Called at: 17:06:16 07/18/2015 by:Stacey roger to malia ibarra 07-Hct-439662:43 Prothrombin Time w/INR Comments: [facility] [address] [place], [place], [address] INR 0.9 (Normal) PROTIME 12.8 s (Normal) [...] with abnormal findings in adult : Reviewed Chicken Boner Letter Indication: Encounter for annual general medical [...] Planned Observations CBC, PLATELETS & AUT DIFF ([id number])Indication: Elevated WBC count On: 04-Aug-20187:59 Request Cologuard - Strool Based DNA Test, CRC SCREEN ([id number])Indication: Encounter for screening for malignant neoplasm of colon (Renamed from Special screening for malignant neoplasms, colon) On: 06-Hwc-200007:05 Request FECAL OCCULT- Tubes sent home ([id number])Indication: Encounter for screening for malignant neoplasm of colon (Renamed from Special screening for malignant neoplasms, colon) On: 07-Vut-363940:09 Request Lipid Panel ([id number])Indication: Diabetes mellitus type 2, insulin dependent On: 23-Kxr-479177:08 Request Comments: around January Metabolic Panel, Comprehensive ([id number])Indication: Diabetes mellitus type 2, insulin dependent On: 74-Ddl-008541:08 Request Comments: around January CBC, Platelets & Auto Diff ([id number])Indication: Diabetes mellitus type 2, insulin dependent On: 92-Ymz-965264:08 Request Comments: around January TSH ([id number])Indication: Diabetes mellitus type 2, insulin dependent On: 88-Lun-417830:08 Request Comments: around January Rapid Flu (00852 x 2)Indication: Unspecified Diagnosis On: 43-Mem-49383:33 Request CBC & PLATELETS (AUTO) (07696)Indication: Abdominal pain On: 0-Efw-427082:57 Request CULTURE, NOSE (00340)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 On: 17-Rzd-197119:31 Request Comments: check for MRSA MRSA Culture ([id number])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 On: 11-Suy-189168:23 Request Comments: rt axila HgA1C , Office ([id number])Indication: Diabetes mellitus type 2, insulin dependent On: 10-Uhl-114780:21 Request Urinalysis, Office (74063)Indication: History of MRSA infection On: 58-Ewn-833771:42 Request Hemoglobin Glyclated (HGB A1C) (77989)Indication: Diabetes mellitus type 2, uncontrolled On: 91-Bop-227567:46 Request MICROALBUMIN: CREATININE RATIO (91641) AND (04099)Indication: Hypertensive heart disease without heart failure On: 71-Nww-189635:46 Request Planned Encounters Medical; 3 Month FU - On: 28-Oct-2018 13:45 [facility] Elsa Chopra CNP, CNP, Mary E Planned Procedures CHEST XRAY, PA & LATERAL ([id number])By: On: 29-Jul-2018 Intent Elsa Chopra CNP, CNP, Mary E Overnight Pulse OX ([id number])By: On: 30-Jun-2018 Intent Lee Ann Schafer DO SPIROMETRY PERFORMED ([id number])By: On: 25-Jun-2018 Intent Visit, Nurse SPIROMETRY PERFORMED ([id number])By: On: 25-Jun-2018 Intent Visit, Nurse SIX MINUTE WALK TEST ([id number])By: On: 25-Jun-2018 Intent Visit, Nurse Flu Vaccine (Quadrivalent) [id number]: On: 20-May-2018 Intent Karly Chandra DEXA SCAN AXIAL SKELETON ([id number])By: On: 18-Dec-2017 Intent Elsa Chopra CNP, CNP, Mary E SCREENING DIGITAL TOMOSYNTHESIS OF On: 18-Dec-2017 Intent BREAST ([id number])By: Elsa Chopra CNP, CNP, Mary E Flu Vaccine (Quadrivalent) [id number]: On: 11-Jun-2017 Intent Elsa Chopra CNP, CNP, Mary E Comments: InfluenzaLot #[id number]-L dltd, IMDose prefilled syringeVIS and ABN signedgiven by:GENARO blackwood PHYSICAL THERAPY TREATMENT On: 11-Dec-2016 Intent ([id number])By: Adelita Doshi LPN PHYSICAL THERAPY EVALUATION On: 11-Dec-2016 Intent ([id number])By: Elsa Chopra CNP, CNP, Mary E Toradol Injection, 30 mg On: 10-Dec-2016 Intent ([id number])By: Elsa Chopra CNP, CNP, Mary E Radiology - Hip - RightBy: Nav On: 10-Dec-2016 Intent Elsa MCKINLEY CNP, Mary E Aerosol Treatment ([id number])By: Tico On: 16-Oct-2016 Intent Adelita LAM Flu Vaccine (Quadrivalent) [id number]: On: 11-Jul-2016 Intent Elsa Chopra CNP, CNP, Mary E Comments: FLUlot: [id number]:01/16site:Lt deltoidroute:IMdose:.5mlBHAVNA SHAW Ultrasound - Abdomen CompleteBy: On: 03-Jul-2016 Intent Elsa Chopra CNP, CNP, Mary E Radiology - KUBBy: Elsa Chopra CNP On: 03-Jul-2016 Intent Elsa العلي CNP DRAIN/INJECT SMALL JOINT OR BURSA On: 18-May-2016 Intent ()By: Elsa Chopra CNP Comments: to left wrist joint 1/2 cc cuca, 1/2 cc george. Luisalog lot [id number] exp Marcain lot [id number] ex Elsa MCKINLEY MAMMOGRAM, SCREENING, BOTH BREAST On: 11-May-2016 Intent ([id number])By: Elsa Chopra CNP, CNP, Mary E Radiology [...] mellitus without complication) : DISCONTINUED - URINALYSIS (18943) Indication: Diabetes mellitus type II, controlled, with no complications (Renamed from Controlled type 2 diabetes mellitus without complication) CKD (chronic kidney disease), stage III : DISCONTINUED - MICROALBUMIN: CREATININE RATIO (36080) AND (09813) Indication: CKD (chronic kidney disease), stage III Diabetes mellitus type II, controlled, with no complications (Renamed from Controlled type 2 diabetes mellitus without complication) : DISCONTINUED - CBC, PLATELETS & AUT DIFF ([id number]) Indication: Diabetes mellitus type II, controlled, with no complications (Renamed from Controlled type 2 diabetes mellitus without complication) Diabetes mellitus type II, controlled, with no complications (Renamed from Controlled type 2 diabetes mellitus without complication) : DISCONTINUED - METABOLIC PANEL, COMPREHENSIVE (02593) Indication: Diabetes mellitus type II, controlled, with no complications (Renamed from Controlled type 2 diabetes mellitus without complication) Diabetes mellitus type II, controlled, with no complications (Renamed from Controlled type 2 diabetes mellitus without complication) : DISCONTINUED - TSH (09041) Indication: Diabetes mellitus type II, controlled, with [...] dependent : DISCONTINUED - METABOLIC PANEL, BASIC (65982) Indication: Diabetes mellitus type 2, insulin dependent [...] patient does not have durable power of criminal defense attorney or living will. The patient has noticed getting bored, poor spirits most of time and lack of energy. Other providers contributing to the lyndsey bolton's care are computer analyst supervisor () and urologist (). Note for Annual [...] and is sleeping poorly. Patient has been [employer] End: 18-Dec-2017 14:15 pliant with instructions. Current [...] and is sleeping poorly. Patient has been [employer] End: 18-Sep-2017 13:50 pliant with instructions. Current [...] - Reason for ER visit: note: (surgery [facility]. ). The patient feels well with minor [...] MRSA. She has had pre-op testing at [facility] on 10-14-2015, for Lumbar microdecompression for 10-24-[address]. Dahl for papers to be signed [...] 19-Jul-2015 22:21 - sharp pain- went to [facility] ER). 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
--- OUTSIDE RECORDS SUMMARY | 2018-09-25 14:36 | XMS RPT_ITS | Continuity of Care Document ---
:1950 Author Organization [facility] Address [address] [facility] [address] [place] [address] Phone Care Team Providers Name Role Phone Nav ARLENElsa E Unavailable Malcolm STANLEY, Casey Florian Unavailable Linden DO , Dr. Aaron Diaz Unavailable John BatistaAnnalisa Unavailable Dr. Abimael Ag Unavailable Kirby STANLEY, Jared Galeano Unavailable Pascale Boston Unavailable Slarb NET DEVELOPER SOFTWARE ENGINEER C, Adelita Unavailable Unavailable Karly Chandra Unavailable Unavailable Manchak, Trina Unavailable Unavailable Long NET DEVELOPER SOFTWARE ENGINEER C, Dora L Unavailable Unavailable Unavailable Unavailable Problems Name Dates [...] 585.3) Comments: follows with Dr. Munguia in [place], seen for sarcoidosis currently, stableGFR 40 Status: [...] on wean of steroid Scale 201-250. 5 mmeti072-879 8 jzwho250-432 10 swaud464-758 12 units>401 15 unitsad ding metformin not [...] given in L arm subcutaneously paitent tolerated wellLOT#[id number]#2019NOV 06 Status: Active Postmenopausal (Renamed from Postmenopausal status) (Z78.0, V49.81) Status: Active Pregnancies () Comments: 1. 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) Comments: Sees Ciara at [facility] for sarcoid in bone marrow [...] 719.43) Status: Active Medications Name Dates Details CLINTON-MARYJANE GUPTA (In Vitro Strip) 1 (one) Strip tid for 30 days Quantity: 100 {Strip} Refills: 3 Ordered:09-Jan-2016 Madeline Florez DO Start : 09-Jan-2016 Active Allopurinol 100 MG Oral Tablet 1 (one) Tablet Tablet daily for 30 days Quantity: 30 {Tablet} Refills: 3 Ordered:11-May-2016 Slarb NET DEVELOPER SOFTWARE ENGINEER CAdelita Start : 08-May-2016 Active AmLODIPine Besylate 5 MG Oral Tablet 1 (one) Tablet bid for 30 days Quantity: 60 {Tablet} Refills: 3 Ordered:06-Jun-2018 Nav MCKINLEY Elsa Amy MCKINLEY Elsa Luke Start : 06-Jun-2018 Active ASPIRIN LOW DOSE, 81MG (Oral Tablet Delayed Release) 1 (one) Tablet DR Tablet DR daily for 30 days Quantity: 30 {Tablet} Refills: 0 Ordered:25-Jul-2015 Madeline Florez DO Start : 18-Jul-2015 Active Atorvastatin Calcium 20 MG Oral Tablet 1 (one) Tablet Tablet daily for 0 days Quantity: 90 {Tablet} Refills: 3 Ordered:04-Sep-2017 Nav MCKINLEY Elsa Amy MCKINLEY Elsa Luke Start : 04-Sep-2017 Active Calcitriol 0.25 MCG Oral Capsule 1 (one) Capsule daily for 0 days Quantity: 30 {Capsule} Refills: 6 Ordered:12-May-2018 Nav MCKINLEY Elsa Amy MCKINLEY Elsa Luke Start : 12-May-2018 Active Citalopram Hydrobromide 40 MG Oral Tablet 1/2 tab tablet tablet daily for 30 days Quantity: 30 {Tablet} Refills: 3 Ordered:02-May-2018 Nav MCKINLEY Elsa Amy MCKINLEY Elsa Luke Start : 02-May-2018 Active Cyclobenzaprine HCl 10 MG Oral Tablet 1 (one) Tablet as needed for 0 days Quantity: 30 {Tablet} Refills: 0 Ordered:11-Jun-2017 Nav MCKINLEY Elsa Amy MCKINLEY Elsa Luke Start : 11-Jun-2017 Active Comments:Medication [...] days Quantity: 60 {Tablet} Refills: 0 Ordered:07-Jul-2018 Nav HAT BLOCKING OPERATOR, Elsa Reyes CNP, Elsa Luke Start : 07-Jul-2018 Active Comments:Oarrmackenzie rundx F41.9#60thirty days Melatonin 1 MG Oral Tablet 3 (three) Tablet qhs for 0 days Quantity: 60 {Tablet} Refills: 0 Ordered:12-Mar-2016 Nav HAT BLOCKING OPERATOR, Elsa Reyes HAT BLOCKING OPERATOR, Elsa Luke Start : 12-Mar-2016 Active MetFORMIN HCl ER 500 MG Oral Tablet Extended Release 24 Hour 2 (two) Tablet bid for 30 days Quantity: 120 {Tablet} Refills: 6 Ordered:27-May-2018 Nav MCKINLEY, Elsa Reyes CNP, Elsa Luke Start : 27-May-2018 Active Omeprazole 20 MG Oral Tablet Delayed Release 1 (one) Tablet DR Tablet DR daily for 90 days Quantity: 90 {QS} Refills: 3 Ordered:08-Jan-2018 Nav MCKINLEY, Elsa Reyes CNP, Elsa Luke Start : 08-Jan-2018 Active Oxybutynin Chloride ER 5 MG Oral Tablet Extended Release 24 Hour 1 (one) Tablet bid for 30 days Quantity: 60 {Tablet} Refills: 3 Ordered:28-Jul-2018 Nav MCKINLEY, Elsa Reyes CNP, Elsa Luke Start : 28-Jul-2018 Active Oxycodone-Acetaminophen 7.5-325 MG Oral Tablet 1 (one) Tablet Tablet bid as needed for 0 days Quantity: 60 {Tablet} Refills: 0 Ordered:03-Jul-2016 Nav MCKINLEY, Elsa Reyes CNP, Elsa Luke Start : 03-Jul-2016 Active Comments:Medication taken as needed. Promethazine HCl 25 MG Oral Tablet 1 (one) Tablet q 8hrs as needed for 30 days Quantity: 30 {Tablet} Refills: 1 Ordered:27-May-2018 Nav MCKINLEY, Elsa Hinton CNP Start : 27-May-2018 Active Comments:Medication taken as needed. Synthroid 50 MCG Oral Tablet 1 (one) Tablet daily except Sundays and Tuesdays for 0 days Quantity: 30 {Tablet} Refills: 3 Ordered:27-May-2018 Nav MCKINLEY, Elsa Hinton CNP Start : 27-May-2018 Active Comments:generic only UNISOM, 25MG (Oral Tablet) 2 (two) Tablet Tablet q hs for 30 days Quantity: 60 {Tablet} Refills: 0 Ordered:25-Jul-2015, Madeline A Start : 18-Jul-2015 Active VITAMIN D3, 82794YPGB (Oral Capsule) 1 (one) Capsule Capsule once a month for 30 days Quantity: 1 {Capsule} Refills: 0 Ordered:25-Jul-2015, Madeline A Start : 18-Jul-2015 Active AMIODARONE HCL, 200MG (Oral Tablet) 1 (one) Tablet Tablet daily for 30 days Quantity: 30 {Tablet} Refills: 0 Ordered:20-Jan-2016 Nav MCKINLEY, Elsa Hinton CNP Start : 20-Jan-2016 End : 19-Feb-2016 Inactive Comments:per [employer] Augmentin 875-125 MG Oral Tablet 1 (one) Tablet bid for 14 days Quantity: 28 {Tablet} Refills: 0 Ordered:16-Oct-2016 Nav MCKINLEY, Elsa Hinton CNP Start : 16-Oct-2016 End : 30-Oct-2016 Inactive Bactrim DS 800-160 MG Oral Tablet 1 (one) Tablet bid for 10 days Quantity: 20 {QS} Refills: 0 Ordered:12-Mar-2016 Nav MCKINLEY, Elsa Hinton CNP Start : 12-Mar-2016 End : 22-Mar-2016 Inactive FENOFIBRATE, 160MG (Oral Tablet) 1 (one) Tablet Tablet daily for 30 days Quantity: 30 {Tablet} Refills: 0 Ordered:19-Aug-2015 DO, Madeline A Start : 18-Jul-2015 End : 17-Aug-2015 Inactive Furosemide 40 MG Oral Tablet 1/2 tab tablet daily for 30 days Quantity: 15 {Tablet} Refills: 0 Ordered:24-Jun-2018 Nav HAT BLOCKING OPERATOR, Elsa Reyes HAT BLOCKING OPERATOR, Onelia Start : 24-Jun-2018 End : 24-Jul-2018 Inactive ISOSORBIDE MONONITRATE, 10MG (Oral Tablet) 1 (one) Tablet Tablet tid for 30 days Quantity: 90 {Tablet} Refills: 0 Ordered:25-Jul-2015 Altagracia Santiago Start : 18-Jul-2015 End : 17-Aug-2015 Inactive LIPITOR, 20MG (Oral Tablet) 1 (one) Tablet Tablet qd for 30 days Quantity: 30 {Tablet} Refills: 0 Ordered:24-Oct-2015 Akhil MOYa A Start : 22-Sep-2015 End : 22-Oct-2015 Inactive [...] days Quantity: 60 {Tablet} Refills: 0 Ordered:19-Aug-2015 Akhil MOYa A Start : 18-Jul-2015 End : 17-Aug-2015 Inactive PEN NEEDLES 3/16, 31G X 5 MM (Miscellaneous) 1 (one) Misc q am for 30 days Quantity: 30 {Unspecified} Refills: 0 Ordered:28-Nov-2015 SlaAdelita mancilla LPN Start : 28-Nov-2015 End : 28-Dec-2015 Inactive PIOGLITAZONE HCL, 15MG (Oral Tablet) 1 (one) Tablet Tablet daily for 30 days Quantity: 30 {Tablet} Refills: 0 Ordered:19-Aug-2015 DO Madeline A Start : 18-Jul-2015 End : 17-Aug-2015 Inactive PREDNISONE, 20MG (Oral Tablet) 1/2 Tablet Tablet QOD for 30 days Quantity: 15 {Tablet} Refills: 0 Ordered:21-Oct-2015 Nav HAT BLOCKING OPERATOR, Elsa Reyes CNP, Onelia Start : 21-Oct-2015 End : 20-Nov-2015 Inactive Tradjenta 5 MG Oral Tablet 1 (one) Tablet daily for 0 days Quantity: 30 {Tablet} Refills: 3 Ordered:20-May-2018 Nav MCKINLEY, Elsa Reyes CNP, Onelia Start : 23-Apr-2018 End : 20-May-2018 [...] Quantity: 1 {Vial} Refills: 6 Ordered:07-Feb-2016 Nav HAT BLOCKING OPERATOR, Elsa MICHAELelba HAT BLOCKING OPERATOR, Onelia Start : 03-Oct-2015 End : 07-Feb-2016 Discontinued LEVEMIR, 100UNIT/ML (Subcutaneous Solution) 20 Solution units each morning for 30 days Quantity: 1 {Vial} Refills: 6 Ordered:20-Jan-2016 Adelita Doshi LPN Start : 21-Oct-2015 End : 20-Jan-2016 Discontinued MACROBID, 100MG (Oral Capsule) q12hrs (100 MG) End : 05-Aug-2015 Discontinued Comments:[facility] MUPIROCIN, 2% (External Ointment) 1 (one) Ointment [...] End : 12-Mar-2016 Discontinued Comments:Per Ciara Avila 100 MG Oral Capsule 1 (one) Capsule tid prn for 0 days Quantity: 30 {Capsule} Refills: 0 Ordered:19-Nov-2016 Adelita Doshi LPN Start : 16-Oct-2016 End : 19-Nov-2016 Discontinued Vancomycin HCl End : 05-Aug-2015 Discontinued Comments:1,250mg IV q24hrs x 08hyyx8,500mg IV q24hrs #14 Allergies and Adverse Reactions [...] Comments: was seeing Dr. Munguia's partner in [place] Dr. Morel, gfr 43%, has proteinuria Status: [...] Knee Replacement, Total Completed Comments: Right. vertebroplasty l1 Completed Date Value Details 17-Feb-2018 Cardiology Visit Report Result: Comments: See Note; NOTES: [facility] [place] [address] [facility] [address] [place] [address] OFFICE VISIT Date of Service: 02/17/18 MR#: [id number] Acct: [id number] Name: SHREYAS KATHLEEN Rep #: [id number] : 1950 Provider: Casey Fowler MD Age/Sex: 67/F Location: [facility] Status: Signed HPI HPI Details: SHREYAS KATHLEEN, is a 67 F who presents to the office today for for outpatien t cardiovascular follow-up of her history of underlying CAD, non-ST segment elevation ID, paroxysmal atrial fibrillation, superimposed upon a history [...] PFSH Medical History Atherosclerotic heart disease of [place] coronary artery without angina pectoris (Chronic) History [...] stenosis Assessment AND Plan 1. Atherosclerosis of [place] coronary artery of [place] heart without angina pectoris I25.10 Mild Plan [...] for an outpatient visit in [facility] 9 months unless needed sooner. Thank you for allowing me to participate in the care of your patient. Please don't hesitate to call if any issues arise. This note was generated using a voice recogn ition system and there may be incorrect words, spelling or punctuation that were not noted when reviewing the office note prior to saving. Follow Up 9 Months Coding Level of Care Code Off vis,est,leve l 4 Diagnoses Atherosclerosis of [place] coronary artery of [place] heart without angina pectoris I25.10 [place] vs. transplanted heart: [place] heart Paroxysmal atrial fibrillation I48.0 Hyperlipidemia, u nspecified hyperlipidemia type E78.5 Hyperlipidemia type: unspecified Essential hypertension I10 Hypertension type: essential hypertension Long-term use of high-risk medication Z79.899 Coding Level of Care Code Off vis,est,level 4 Diagnoses Atherosclerosis of [place] coronary artery of [place] heart without angina pectoris I25.10 [place] vs. transplanted heart: [place] heart Paroxysmal atrial fibrillat ion I48.0 Hyperlipidemia, unspecified hyperlipidemia type E78.5 Hyperlipidemia type: unspecified Essential hypertension I10 Hypertension type: essential hypertension Long-term use of high-risk medicatio n Z79.899 02/17/18 1530 <Electronically signed by Casey Fowler MD> Date Casey Fowler MD Cosigner Signature: Date _ (if applicable) CC: Elsa Chopra NP 14-Feb-2018 SCREENING MAMM (CAD), BILAT Result: Comments: See Note; NOTES: [facility] Imaging Services [address] [place] [address] SCREENING MAMM (CAD), BILAT MR#: [id number] Acct: [id number] Name: SHREYAS KATHLEEN Rep #: [id number] : 1950 F 67 From: Elias Finn MD PCP: Elsa Chopra NP Status: REG CLI Study: SCREENING MAMM (CAD), BILAT Date of Exam: 02/14/18 Exam# [id number] Ordering Dr: Elsa Chopra MAMMO GRAPHY - [...] these results will be sent to the [facility] nt by the facility within 30 days. Approximately 10% of breast cancers are not detected by mammography. A normal mammogram should not delay biopsy of a clinically suspicious abnormality. [id number] Elect ronically Signed: Elias Finn MD at 8:30 EDT Tel [phone], Service support , CC: Elsa Chopra NP Trip Follower: Signed 21-Jan-2018 Dexa Bone Density Study Result: Comments: See Note; NOTES: [facility] Imaging Services [address] [place] [address] Dexa Bone Density Study MR#: [id number] Acct: [id number] Name: SHREYAS KATHLEEN Rep #: [id number] : 1950 F 67 From: Elias Finn MD PCP: Elsa Chopra NP Status: REG CLI Study: Dexa Bone Density Study Date of Exam: 01/21/18 Exam# [id number] Ordering Dr: Elsa Chopra STUDY: DUAL E [...] Elias Finn MD at 15:36 EDT Tel [phone], Service support , CC: Elsa Chopra FREIGHT CAR BUILDER Trip Follower: Signed 10-Dec-2016 Hip 2-3 Views with Pelvis Result: Comments: See Note; NOTES: [facility] Imaging Services [address] [place] [address] Verdana 4d Hip 2-3 Views with Pelvis MR#: [id number] Acct: [id number] Name: SHREYAS KATHLEEN Rep #: [id number] : 1950 F 66 From: Herve Jimenez MD PCP: Elsa Chopra Status: REG CLI Study: Hip 2-3 Views with Pelvis Date of Exam: 12/10/16 Exam# [id number] Ordering Dr: Elsa Chopra STUDY : X-RAY [...] FACR at 11:31 EDT , Service support [phone], CC: Elsa Chopra Trip Follower: Signed 05-Jul-2016 Abdomen Complete Result: Comments: See Note; NOTES: [facility] Imaging Services [address] [place] [address] Oscar 4d Abdomen Complete MR#: [id number] Acct: [id number] Name: SHREYAS KATHLEEN Rep #: [id number] : 1950 F 66 From: Elias Finn MD PCP: Elsa Chopra Status: REG CLI Study: Abdomen Complete Date of Exam: 07/05/16 Exam# [id number] Ordering Dr: Elsa Chopra STUDY: ABDOMINAL ULTRASOUND [...] Elias Finn MD at 9:35 EDT Tel [phone], Service support [phone], CC: Elsa Chopra Trip Follower: Signed 05-Jul-2016 Abdomen Single View Result: Comments: See Note; NOTES: [facility] Imaging Services [address] [place] [address] Verdana 4d Abdomen Single View MR#: [id number] Acct: [id number] Name: SHREYAS KATHLEEN Rep #: [id number] : 1950 F 66 From: Elias Finn MD PCP: Elsa Chopra Status: REG CLI Study: Abdomen Single View Date of Exam: 07/05/16 Exam# [id number] Ordering Dr: Elsa Chopra STUDY: X-RA Y [...] of the L1 vertebrae. ORDER # : [id number] RAD/Abdomen Single View IMPRESSION: Moderate amount of fecal material is seen in the colon. Electronically Signed: Elias Finn MD at 10:34 EDT Tel [phone], Service sup port [phone], CC: Elsa Chopra Trip Follower: Signed 18-May-2016 Bilat Scrn Digital AND CAD Result: Comments: See Note; NOTES: [facility] Imaging Services [address] [place] [address] Verdana 4d Bilat Scrn Digital AND CAD MR#: [id number] Acct: [id number] Name: JACINTO KATHLEEN Rep #: [id number] : 1950 F 65 From: Elias Finn MD PCP: Elsa Chopra Status: REG CLI Study: Bilat Scrn Digital AND CAD Date of Exam: 05/18/16 Exam# [id number] Ordering Dr: Elsa Chopra MAMMOGRAPHY - BILATERAL [...] biopsy of a clinically suspicious abnor mality. [id number] Electronically Signed: Elias Finn MD at 12:53 EDT Tel [phone], Service support [phone], CC: Elsa Chopra Trip Follower: Signed 14-Feb-2016 Shoulder min 2 Views Result: Comments: See Note; NOTES: [facility] Imaging Services [address] [place] [address] Verdana 4d Shoulder min 2 Views MR#: [id number] Acct: [id number] Name: SHREYAS KATHLEEN Rep #: [id number] : 1950 F 65 From: Herve Jimenez MD PCP: Madeline Florez DO Status: REG CLI Study: Shoulder min 2 Views Date of Exam: 02/14/16 Exam# [id number] Ordering Dr: Pascale Boston DO STUDY: X-RAY [...] FACR at 14:50 EDT , Service support [phone], Fax RAD/Shoulder min 2 Views IMPRESSION: Bilateral of the acromioclavicular joint, otherwise normal x-ray examination of the shoulder. Electronically Signed: Herve Jimenez MD, FACR at 14:50 EDT , Service support [phone], CC: Pascale Boston DO; Madeline Florez DO Trip Follower: Signed 21-Oct-2015 Spirometry (36028) Comments: mod restriction Result: 19-Sep-2015 Chest PA and Lateral Result: Comments: See Note; NOTES: [facility] Imaging Services [address] [place] [address] Verdana 4d Chest PA and Lateral MR#: [id number] Acct: [id number] Name: SHREYAS KATHLEEN Rep #: [id number] : 1950 F 65 From: Elias Finn MD PCP: Madeline Florez DO Status: REG CLI Study: Chest PA and Lateral Date of Exam: 09/19/15 Exam# [id number] Ordering Dr: Madeline Florez DO STUDY: X-RAY [...] Elias Finn MD at 13:58 EST Tel [phone], Service support [phone], RAD/Chest PA and Lateral IMPRESSION: Stable examination. No acute abnormality is seen. Electronically Doris d: Elias Finn MD at 13:58 EST Tel [phone], Service support [phone], CC: Madeline Florez DO Trip Follower: Signed 25-Aug-2015 Spine Lumbar (Routine) Result: Comments: See Note; NOTES: [facility] Imaging Services [address] [place] [address] Verdana 4d Spine Lumbar (Routine) MR#: [id number] Acct: [id number] Name: SHREYAS MAJOR Rep #: [id number] : 1950 F 65 From: Herve Jimenez MD PCP: Madeline Florez DO Status: REG CLI Study: Spine Lumbar (Routine) Date of Exam: 08/25/15 Exam# [id number] Ordering Dr: ELIZABETH DE LEON M.D. STUDY: [...] FACR at 17:43 EST , Service support [phone], CC: ELIZABETH DE LEON M.D.; Madeline Florez DO Trip Follower: Signed 25-Aug-2015 Spine Thoracic (Routine) Result: Comments: See Note; NOTES: [facility] Imaging Services [address] [place] [address] Verdana 4d Spine Thoracic (Routine) MR#: [id number] Acct: [id number] Name: SHREYAS SHARIF Rep #: [id number] : 1950 F 65 From: Herve Jimenez MD PCP: Madeline Florez DO Status: REG CLI Study: Spine Thoracic (Routine) Date of Exam: 08/25/15 Exam# [id number] Ordering Dr: ELIZABETH RUIZ M.D. STUDY: MRI [...] FACR at 17:45 EST , Service support [phone], CC: ELIZABETH DE LEON M.D.; Komal Florez DO Trip Follower: Signed 17-Aug-2015 Chest PA and Lateral Result: Comments: See Note; NOTES: [facility] Imaging Services [address] [place] [id number] [place] [address] 4d Chest PA and Lateral MR#: [id number] Acct: [id number] Name: SHREYAS KATHLEEN Keira Rep #: [id number] : 1950 F 65 From: Elias Finn MD PCP: Madeline Florez DO Status: REG CLI Study: Chest PA and Lateral Date of Exam: 08/17/15 Exam# [id number] Ordering Dr: Madeline Florez DO STUDY: X-RAY [...] Elias Finn MD at 11:09 EST Tel [phone], Service support [phone], Fax RAD/Chest PA and Lateral IMPRESSION: Residual changes persist in the right middle lobe and there has been some improvement. Further followup is recommended. Electr onically Signed: Elias Finn MD at 11:09 EST Tel [phone], Service support [phone], CC: Madeline Florez DO Trip Follower: Signed 12-Aug-2015 Discharge Instruction Result: Comments: See Note; NOTES: [facility] Medical Records Department [address] [place] [address] Discharge Instruction 08/10/15 1702 MR#: [id number] Acct: [id number] Name: SHREYAS KATHLEEN Rep #: [id number] : 1950 65 From: Denny Bone MD [...] problems, contact your doctor. Call [facility] ([phone]) or report to the closest Emergency Room. Call 911 if necessary. 08/12/15 1502 <Elect ronically signed by Denny Bone MD> Date Denny Bone MD Cosigner Signature (If Indicated): Date CC: Madeline Florez DO 12-Aug-2015 Emergency Department Summary Result: Comments: See Note; NOTES: [facility] Medical Records Department [address] [place] [address] Emergency Department Summary MR#: [id number] Acct: [id number] Name: SHREYAS KATHLEEN Rep #: [id number] : 1950 65 From: Denny Bone MD PCP: Madeline Florez DO Status: [facility] DATE OF SERVICE: 08/10/2015 METHOD OF [...] the patient had blood cultures obtained at [facility] and they were called to [...] home in stable condition. IMPRESSION: Acute bacteremia. Denny Bone MD C C: Madeline Bonilla MD T: NTS JOB: [id number] 08/12/15 1502 <Electronically signed by Denny Bone MD> Date Denny Bone MD Cosigner Signature (If Indicated): Date ___ CC: Madeline Florez DO; Katelyn Arenas MD Date Dictated: 08/10/151708 Date Transcribed: 08/10/151708 Trip Follower: Signed Social History Name Dates Details No Caffeine Use Status: Active No Drug Use Status: Active Non Drinker/No Alcohol Use Status: Active Tobacco use: Never smoker. Status: Active Smoking Status Name Dates Details Never smoker Vital Signs Date Test Result Details 45-Sgz-050050:25 Temperature 98 f Comments: Method: Temporal Pulse [...] kg/m2 Body Surface Area Calculated 1.83 m2 33-Fbq-248513:48 Pulse 107 /min Comments: Pattern: Regular Respiration [...] unknown, given order todayLast vision screen 2014 [employer] Temperature 98.3 f Pulse 75 /min [...] Size: Large Results Date Description Value Details 49-Uqf-524133:26 HgA1C , Office (64382) HgA1C , Office 6.4 % (Normal) Range: 4.6 - 7.1 :26 Blood Glucose , Office (02440) Blood Glucose , Office 163 (Normal) 41-Cnq-17063:00 MICROALBUMIN: CREATININE RATIO Comments: Jun 19; PATIENT WAS FASTINGPERFORMED BY: [employer] [id number] ([id number]) AND (77741) Alb/Creat Ratio 266.9 {mg/g_creat} (Abnormal) Range: 0.0-30.0 Albumin, Urine 168.7 ug/mL (Normal) Creatinine, Urine 63.2 mg/dL (Normal) :00 Metabolic Panel, Comprehensive Comments: Jun 19; PATIENT WAS FASTINGPERFORMED BY: [employer] [id number] (77374) ALT (SGPT) 14 [iU]/L (Normal) Range: 0-32 [...] 8-27 Glucose 121 mg/dL (Abnormal) Range: 65-99 78-Hrb-53369:00 HGB A1C (03770) Comments: June 19; PATIENT WAS FASTINGPERFORMED BY: [employer] [facility] [id number] Hemoglobin A1c 7.0 % (Abnormal) Range: 4.8-5.6 Comments: . Prediabetes: 5.7 - 6.4 Diabetes: >6.4 Glycemic control for adults with diabetes: <7.0 04-Rmg-360401:33 ALKALINE PHOSPHATASE-ISOENZYM Comments: PATIENT NOT FASTINGPERFORMED BY: [place] [facility] [id number] (64882) Intestinal Frac.: 0 % (Normal) Range: 0-18 Bone Fraction: 27 % (Normal) Range: 14-68 Liver Fraction: 73 % (Normal) Range: 18-85 Alkaline Phosphatase 89 [iU]/L (Normal) Range: 39-117 14-Dps-748943:33 CBC, Platelets & Auto Diff Comments: PATIENT NOT FASTINGPERFORMED BY: [employer] [facility] [id number] (29348) Immature Grans (Abs) 0.0 {x10E3/uL} (Normal) Range: [...] 3.77-5.28 WBC 5.9 {x10E3/uL} (Normal) Range: 3.4-10.8 88-Kdo-527644:22 HgA1C , Office (72361) Comments: 7.3 HgA1C , Office 7.3 % (Abnormal) Range: 4.6 - 7.1 00-Ubn-295235:22 Blood Glucose , Office (83238) Blood Glucose , Office 173 (Normal) 84-Pps-89204:40 Basic Metabolic Profile (BMP) Comments: SEND RESULTS OF BMP TO .[facility] [address] [facility]. [place], [place], [address] GAP 11 (Normal) Range: 5-15 CO2 27.0 [...] A.D.A. criteria.Please note revised GLUCOSE reference range widfvppjb06/02/2018. 23-Wzk-17214:40 Liver Profile Comments: SEND RESULTS OF BMP TO .[facility] [address] [place], [place], [address] D BILI 0.09 mg/dL (Normal) Range: 0.00-0.30 T BILI 0.40 mg/dL (Normal) Range: 0.20-1.00 ALT 22 U/L (Normal) Range: 13-56 ALK P 103 U/L (Normal) Range: 45-117 AST 17 U/L (Normal) Range: 15-37 GLOB 4.0 g/dL (Normal) Range: 2.2-4.2 ALB 3.8 g/dL (Normal) Range: 3.2-5.0 T PROT 7.8 g/dL (Normal) Range: 6.4-8.2 :41 CALCIFEDIOL (99890) Comments: PATIENT WAS FASTINGPERFORMED BY: [facility] [id number] Vitamin D, 25-Hydroxy 44.2 ng/mL (Normal) Range: 30.0-100.0 Comments: Vitamin D deficiency has been defined by the [place] [employer] and an Endocrine Society practice guideline as alevel of serum 25-OH vitamin D less than 20 ng/mL (1,2).The Endocrine Society went on to further define vitamin Dinsufficiency as a level between 21 and 29 ng/mL (2).1. IOM ([place] [employer]). 2010. Dietary reference intakes for calcium and D. [place]: The National Academies Press.2. Jacinto MF, Eddy NC, Quintin JAVED, et al. Evaluation, treatment, and prevention of vitamin D deficiency: an Endocrine Society clinical practice guideline. JCEM. 2010; 96(7):1911-30. 63-Vew-394820:41 METABOLIC PANEL, Comments: PATIENT WAS FASTINGPERFORMED BY: LabCoSelect at BellevillePsnock8778 [facility] [id number] Information: [id number]; OV 03/19 [facility] (77597) ALT (SGPT) 15 [iU]/L (Normal) Range: 0-32 [...] 8-27 Glucose 143 mg/dL (Abnormal) Range: 65-99 89-Cdz-569043:31 Blood Glucose , Office (35139) Blood Glucose , Office 211 (Normal) 55-Xzv-492696:31 HgA1C , Office (05361) HgA1C , Office 6.8 % (Normal) Range: 4.6 - 7.1 22-Bis-070205:33 CBC, Platelets & Auto Diff Comments: PATIENT WAS FASTINGPERFORMED BY: LabCoSelect at BellevilleDbmovq0208 [facility] [id number] (56463) Immature Grans (Abs) 0.0 {x10E3/uL} (Normal) Range: [...] 3.77-5.28 WBC 7.7 {x10E3/uL} (Normal) Range: 3.4-10.8 98-Nqp-104201:33 Lipid Panel (35633) Comments: PATIENT WAS FASTINGPERFORMED BY: LabCoSelect at BellevillePuyoyw1138 [facility] [id number] LDL/HDL Ratio 0.9 {ratio} (Normal) Range: 0.0-3.2 Comments: LDL/HDL Ratio Men Women 1/2 Avg.Risk 1.0 1.5 Av g.Risk 3.6 3.2 2X Avg.Risk 6.2 5.0 3X Avg.Risk 8.0 6.1 LDL Cholesterol Calc 35 mg/dL (Normal) Range: 0-99 VLDL Cholesterol Kiesha 53 mg/dL (Abnormal) Range: 5-40 HDL Cholesterol 41 mg/dL (Normal) Triglycerides 264 mg/dL (Abnormal) Range: 0-149 Cholesterol, Total 129 mg/dL (Normal) Range: 100-199 15-Cmk-659290:33 Metabolic Panel, Comprehensive Comments: PATIENT WAS FASTINGPERFORMED BY: [email or web address] at BellevilleFsfcha6640 [facility] [id number] (56439) ALT (SGPT) 18 [iU]/L (Normal) Range: 0-32 [...] 8-27 Glucose 150 mg/dL (Abnormal) Range: 65-99 94-Fjx-661171:33 MICROALBUMIN: CREATININE RATIO Comments: PATIENT WAS FASTINGPERFORMED BY: [facility]6370 [facility] [id number] (97971) AND (42297) Alb/Creat Ratio 225.5 {mg/g_creat} (Abnormal) Range: 0.0-30.0 Albumin, Urine 112.5 ug/mL (Normal) Creatinine, Urine 49.9 mg/dL (Normal) 60-Zjw-550193:33 URINALYSIS (84866) Comments: PATIENT WAS FASTINGPERFORMED BY: [email or web address] Qxmgcu6333 [facility] [id number] Microscopic Examination See below: (Normal) Comments: Microscopic was indicated and was performed. Nitrite, Urine Negative (Normal) Urobilinogen,Semi-Qn 0.2 mg/dL (Normal) Range: 0.2-1.0 Bilirubin Negative (Normal) Occult Blood Negative (Normal) Ketones Negative (Normal) Glucose Negative (Normal) Protein Trace (Normal) WBC Esterase 2+ (Abnormal) Appearance Clear (Normal) Urine-Color Yellow (Normal) pH 6.5 (Normal) Range: 5.0-7.5 Specific [place] 1.014 (Normal) Range: 1.005-1.030 63-Rqu-463425:33 TSH (91541) Comments: PATIENT WAS FASTINGPERFORMED BY: [email or web address] at BellevilleRcmqon9232 [facility] [id number] TSH 3.870 {uIU/mL} (Normal) Range: 0.450-4.500 41-Zys-226917:33 Microscopic Examination Comments: PATIENT WAS FASTINGPERFORMED BY: Kasidie.comSelect at BellevilleOnjiyu7338 [facility] [id number] Bacteria Few (Normal) Mucus Threads Present (Normal) Cast Type Hyaline casts (Normal) Casts Present {/lpf} (Abnormal) Epithelial Cells (non renal) >10 {/hpf} (Abnormal) Range: 0 - 10 RBC 0-2 {/hpf} (Normal) Range: 0 - 2 WBC 11-30 {/hpf} (Abnormal) Range: 0 - 5 51-Yym-766225:57 HgA1C , Office (71912) Comments: 6.6 HgA1C , Office 6.6 % (Normal) Range: 4.6 - 7.1 34-Efs-510434:57 Blood Glucose , Office (20849) Blood Glucose , Office 211 (Normal) 16-Crr-751225:53 HEPATIC FUNCTION PANEL Comments: PATIENT NOT FASTINGPERFORMED BY: [email or web address] at BellevilleMfkrxj3675 [facility] [id number] (76321) ALT (SGPT) 13 [iU]/L (Normal) Range: 0-32 AST (SGOT) 17 [iU]/L (Normal) Range: 0-40 Alkaline Phosphatase, S 89 [iU]/L (Normal) Range: 39-117 Bilirubin, Direct 0.08 mg/dL (Normal) Range: 0.00-0.40 Bilirubin, Total <0.2 mg/dL (Normal) Range: 0.0-1.2 Albumin, Serum 4.2 g/dL (Normal) Range: 3.6-4.8 Protein, Total, Serum 6.8 g/dL (Normal) Range: 6.0-8.5 :53 VKPVO-AHANXKZSPBN-NBABB (06502) Comments: PATIENT NOT FASTINGPERFORMED BY: EternoGen6370 [address]ana RoadListen Editionblin [place] [id number] AFP, Serum, Tumor Marker 2.6 ng/mL (Normal) Range: 0.0-8.3 Comments: Rosmery ECLIA methodology :53 ALKALINE PHOSPHATASE-ISOENZYM Comments: PATIENT NOT FASTINGPERFORMED BY: [facility] Neurotron Biotechnologyblin [place] [id number] (73026) Intestinal Frac.: 5 % (Normal) Range: 0-18 Bone Fraction: 24 % (Normal) Range: 14-68 Liver Fraction: 71 % (Normal) Range: 18-85 :11 ALKALINE PHOSPHATASE-ISOENZYM Comments: PATIENT NOT FASTINGPERFORMED BY: Knowmia Lovusn5713 [address] SiphonLabsDublin [place] [id number] (26539) Intestinal Frac.: 3 % (Normal) Range: 0-18 Bone Fraction: 19 % (Normal) Range: 14-68 Liver Fraction: 78 % (Normal) Range: 18-85 Alkaline Phosphatase, S 122 [iU]/L (Abnormal) Range: 39-117 :11 CALCIFEDIOL (56728) Comments: PATIENT NOT FASTINGPERFORMED BY: Knowmia Sodsmv5415 [address] SiphonLabsblin [place] [id number] Vitamin D, 25-Hydroxy 37.5 ng/mL (Normal) Range: 30.0-100.0 Comments: Vitamin D deficiency has been defined by the [place] [employer] and an Endocrine Society practice guideline as alevel of serum 25-OH vitamin D less than 20 ng/mL (1,2).The Endocrine Society went on to further define vitamin Dinsufficiency as a level between 21 and 29 ng/mL (2).1. IOM ([place] [employer]). 2010. Dietary reference intakes for calcium and D. [place]: The National Academies Press.2. Jacinto MF, Eddy NOGUEIRA, Quintin JAVED, et al. Evaluation, treatment, and prevention of vitamin D deficiency: an Endocrine Society clinical practice guideline. JCEM. 2010; 96(7):1911-30. :11 TSH (04378) Comments: PATIENT NOT FASTINGPERFORMED BY: CB [facility] Yttzno0824 Santana RoadDublin [place] [id number] TSH 1.620 {uIU/mL} (Normal) Range: 0.450-4.500 :11 T4, FREE (THYROXINE) (04567) Comments: PATIENT NOT FASTINGPERFORMED BY: CB [facility] Lsfjxv3203 Santana RoadDublin [place] [id number] T4,Free(Direct) 1.00 ng/dL (Normal) Range: 0.82-1.77 :11 T3, FREE (TRIDOTHYRONINE) (28811) Comments: PATIENT NOT FASTINGPERFORMED BY: CB [facility] Rojkiq9335 Santana RoadDublin [place] [id number] Triiodothyronine,Free,Serum 2.5 pg/mL (Normal) Range: 2.0-4.4 :08 HgA1C , Office (66741) HgA1C , Office 7.4 % (Abnormal) Range: 4.6 - 7.1 :08 Blood Glucose , Office (03387) Blood Glucose , Office 190 (Normal) 3-Bap-340446:30 Lipid Profile Comments: Order Date: 12/12/16Order Info: [id number] - *Hepatic Function PanelOrder Info: [id number] - *Lipid Profile CC PCPComments: 12 hours fasting, may have water.Comments: 6 months / [facility] Ftlzyzlppk2480 [address] [place], [id number] VLDL 46 mg/dL (Abnormal) Range: 5-40 LDL [...] 200-240 mg/dL Borderline >240 mg/dL High Risk 4-Lib-065437:30 Liver Profile Comments: Order Date: 12/12/16Order Info: [id number] - *Hepatic Function PanelOrder Info: [id number] - *Lipid Profile CC PCPComments: 12 hours fasting, may have water.Comments: 6 months / pre next visitWSelect [facility] Zlberngulv4582 [address] [place], [address] D BILI 0.11 mg/dL (Normal) Range: 0.00-0.30 T BILI 0.40 mg/dL (Normal) Range: 0.20-1.00 ALT 19 U/L (Normal) Range: 12-78 ALK P 132 U/L (Abnormal) Range: 45-117 AST 15 U/L (Normal) Range: 15-37 GLOB 4.3 g/dL (Abnormal) Range: 2.3-3.5 ALB 3.5 g/dL (Normal) Range: 3.4-5.0 T PROT 7.8 g/dL (Normal) Range: 6.4-8.2 8-Qhl-379579:55 TSH (THYROID STIMULATING Comments: Week of Apr 09; PATIENT NOT FASTINGPERFORMED BY: LabCo Tkwhms2363 [facility] Institute [id number] HORMONE) (50736) TSH 0.728 {uIU/mL} (Normal) Range: 0.450-4.500 :55 HgA1C , Office (45334) HgA1C , Office 6.9 % (Normal) Range: 4.6 - 7.1 :55 Blood Glucose , Office (13408) Blood Glucose , Office 143 (Normal) 15-Dwu-003529:11 Microscopic Examination Comments: PATIENT WAS FASTINGPERFORMED BY: [facility]gantKindred [facility] [id number] Bacteria Few (Normal) Mucus Threads Present (Normal) Cast Type Hyaline casts (Normal) Casts Present {/lpf} (Abnormal) Epithelial Cells (non renal) 0-10 {/hpf} (Normal) Range: 0 - 10 RBC 0-2 {/hpf} (Normal) Range: 0 - 2 WBC 6-10 {/hpf} (Abnormal) Range: 0 - 5 50-Sew-497890:11 URINALYSIS, W/ MICRO (20593) Comments: January 2017; PATIENT WAS FASTINGPERFORMED BY: [employer]70 PetMDKindred Hospital [facility] [id number] Microscopic Examination See below: (Normal) Comments: Microscopic was indicated and was performed. Nitrite, Urine Negative (Normal) Urobilinogen,Semi-Qn 0.2 mg/dL (Normal) Range: 0.2-1.0 Bilirubin Negative (Normal) Occult Blood Negative (Normal) Ketones Negative (Normal) Glucose Trace (Abnormal) Protein 1+ (Abnormal) WBC Esterase 1+ (Abnormal) Appearance Clear (Normal) Urine-Color Yellow (Normal) pH 6.5 (Normal) Range: 5.0-7.5 Specific [place] 1.016 (Normal) Range: 1.005-1.030 63-Agc-773982:11 MICROALBUMIN: CREATININE RATIO Comments: January 2017; PATIENT WAS FASTINGPERFORMED BY: [employer]70 PetMDKindred [facility] [id number] (90205) AND (69864) Microalb/Creat Ratio 208.2 {mg/g_creat} (Abnormal) Range: 0.0-30.0 Microalbumin, Urine 182.2 ug/mL (Normal) Creatinine, Urine 87.5 mg/dL (Normal) 34-Moo-461154:11 CBC, Platelets & Auto Diff Comments: January 2017; PATIENT WAS FASTINGPERFORMED BY: [email or web address] at BellevilleTpcozz0750 [facility] [id number] (33771) Immature Grans (Abs) 0.0 {x10E3/uL} (Normal) Range: [...] 3.77-5.28 WBC 5.6 {x10E3/uL} (Normal) Range: 3.4-10.8 57-Gsz-257408:11 Metabolic Panel, Comprehensive Comments: January 2017; PATIENT WAS FASTINGPERFORMED BY: [facility] CenterPlayGigaSelect at BellevilleHzzmoe5264 [facility] [id number] (80469) ALT (SGPT) 13 [iU]/L (Normal) Range: 0-32 [...] Glucose, Serum 120 mg/dL (Abnormal) Range: 65-99 48-Snm-575645:11 TSH (THYROID STIMULATING Comments: January 2017; PATIENT WAS FASTINGPERFORMED BY: LabCoSelect at BellevilleWbbwmq6355 [facility] [id number] HORMONE) (62412) TSH 0.982 {uIU/mL} (Normal) Range: 0.450-4.500 1-Wom-702474:02 Lipid Profile Comments: Order Date: 12/04/16Order Info: [id number] - *Hepatic Function PanelOrder Date: 12/04/16Order Info: [id number] - *Lipid Profile CC PCPComments: 12 hours fasting, may have water.[place] [address] [place], [address] VLDL 36 mg/dL (Normal) Range: 5-40 LDL [...] 200-240 mg/dL Borderline >240 mg/dL High Risk 0-Jjx-652979:02 Liver Profile Comments: Order Date: 12/04/16Order Info: [id number] - *Hepatic Function PanelOrder Date: 12/04/16Order Info: [id number] - *Lipid Profile CC PCPComments: 12 hours fasting, may have water.[facility] mzrxkfhy4574 [address] [facility] [place], [address] D BILI 0.07 mg/dL (Normal) Range: 0.00-0.30 T BILI 0.30 mg/dL (Normal) Range: 0.20-1.00 ALT 21 U/L (Normal) Range: 12-78 ALK P 112 U/L (Normal) Range: 45-117 AST 19 U/L (Normal) Range: 15-37 GLOB 3.8 g/dL (Abnormal) Range: 2.3-3.5 ALB 3.4 g/dL (Normal) Range: 3.4-5.0 T PROT 7.2 g/dL (Normal) Range: 6.4-8.2 54-Pnl-415650:29 URINE RANDELL CULTURE-ZEINAB COL Comments: PATIENT NOT FASTINGPERFORMED BY: NEY [facility] Vyvswg2784 [facility]anaFre[facility] Institute [id number] Information: SRC:UC COUNT (49029) Result 1 MUG (Normal) Comments: Mixed urogenital flora25,000-50,000 colony forming units per mL Urine Final report (Normal) Culture,Comprehensive 85-Vgq-762933:53 Urinalysis, Office (42914) UA - LEUKOCYTE ESTERASE Small (Normal) UA - NITRITE Negative (Normal) URINE UROBILINGN ZEINAB TIMED Normal mg/dL (Normal) UA - PROTEIN Negative mg/dL (Normal) UA - PH 7 (Normal) UA - BLOOD Negative (Normal) UA - SPECIFIC GRAVITY 1.020 (Normal) UA - KETONES Negative mg/dL (Normal) UA - BILIRUBIN Small (Normal) UA - GLUCOSE Negative (Normal) :51 Blood Glucose , Office (07760) Comments: 169 Blood Glucose , Office 169 (Normal) :52 HgA1C , Office (01674) Comments: 7.0 HgA1C , Office 7.0 % (Normal) Range: 4.6 - 7.1 :22 URINE RANDELL CULTURE-IDENTIFICATN Comments: PATIENT NOT FASTINGPERFORMED BY: [employer] [place] [id number] Information: SRC: (10569) Result 1 MUG (Normal) Comments: Mixed urogenital flora10,000-25,000 colony forming units per mL Urine Final report (Normal) Culture,Comprehensive :05 Urinalysis, Office (85744) UA - LEUKOCYTE ESTERASE Negative (Normal) UA - NITRITE Negative (Normal) URINE UROBILINGN ZEINAB TIMED Normal mg/dL (Normal) UA - PROTEIN 30 mg/dL (Normal) UA - PH 6 (Abnormal) UA - BLOOD non-hemolyzed trace (Normal) UA - SPECIFIC GRAVITY 1.020 (Normal) UA - KETONES Negative mg/dL (Normal) UA - BILIRUBIN Negative (Normal) UA - GLUCOSE 100 (Abnormal) :42 HgA1C , Office (38147) HgA1C , Office 6.2 % (Normal) Range: 4.6 - 7.1 :42 Blood Glucose , Office (53054) Blood Glucose , Office 137 (Normal) :01 TSH (THYROID STIMULATING Comments: PATIENT NOT FASTINGPERFORMED BY: [employer]70 [place] [id number] HORMONE) (63941) TSH 1.820 {uIU/mL} (Normal) Range: 0.450-4.500 :03 HEPATIC FUNCTION PANEL Comments: PATIENT NOT FASTINGPERFORMED BY: [place] 4724870 [facility] [id number] (69055) ALT (SGPT) 15 [iU]/L (Normal) Range: 0-32 AST (SGOT) 23 [iU]/L (Normal) Range: 0-40 Alkaline Phosphatase, S 95 [iU]/L (Normal) Range: 39-117 Bilirubin, Direct 0.12 mg/dL (Normal) Range: 0.00-0.40 Bilirubin, Total 0.3 mg/dL (Normal) Range: 0.0-1.2 Albumin, Serum 4.3 g/dL (Normal) Range: 3.6-4.8 Protein, Total, Serum 7.3 g/dL (Normal) Range: 6.0-8.5 :03 WLAEM-OIUCXIMXUOR-TDZVQ (18647) Comments: PATIENT NOT FASTINGPERFORMED BY: [place] 4724870 [facility] [id number] AFP, Serum, Tumor Marker 2.8 ng/mL (Normal) Range: 0.0-8.3 Comments: Rosmery ECLIA methodology :03 HEPATITIS PANEL (87140) Comments: PATIENT NOT FASTINGPERFORMED BY: [facility]6370 [facility] [id number] Hep C Virus Ab <0.1 {s/co_ratio} (Normal) Range: 0.0-0.9 Comments: Negative: < 0.8 Indeterminate: 0.8 - 0.9 Positive: > 0.9 . The CDC recommends that a positive HCV antibody result be followed up with a HCV Nucleic Acid Amplification test (093339). Hep B Core Ab, IgM Negative (Normal) HBsAg Screen Negative (Normal) Hep A Ab, IgM Negative (Normal) :58 CBC W/Diff, Automated Comments: CBCD FOR DR Ferreiraisma [facility] Iqtzdtwbwj6910 [address] [place], [place], [id number] Absolute Lymph 1.84 {X10_3/ul} (Normal) Range: 0.83-4.51 [...] Comments: Order Date: 05/14/16Interface Comments: Reason:Order Date: 05/14/16[facility] Srtndsnnyu7[address] [place], [place], [address] T4 THYROXIN 11.6 ug/dL (Normal) Range: 4.8-13.9 :58 Thyroid Stim Hormone (TSH) Comments: Order Date: 05/14/16Interface Comments: Reason:Order Date: 05/14/16[facility] Erchwkzach3[address] [place], [address] TSH 1.96 {uIU/mL} (Normal) Range: 0.358-3.74 4-Fdz-175296:11 Urinalysis, Office (11124) UA - LEUKOCYTE ESTERASE Small (Normal) UA - NITRITE Negative (Normal) URINE UROBILINGN ZEINAB TIMED Normal mg/dL (Normal) UA - PROTEIN 30 mg/dL (Normal) UA - PH 6 (Abnormal) UA - BLOOD Negative (Normal) UA - SPECIFIC GRAVITY 1.010 (Normal) UA - KETONES Negative mg/dL (Normal) UA - BILIRUBIN Negative (Normal) UA - GLUCOSE Negative (Normal) 59-Psl-620286:50 Basic Metabolic Profile (BMP) Comments: [facility] Hfdtmgbmrh5608 [address] [place], [place], [address] GAP 7 (Normal) Range: 5-15 CO2 33.0 [...] 7-18 GLU 100 mg/dL (Normal) Range: 70-110 15-Ffm-720237:48 MAGNESIUM (37467) Comments: PATIENT NOT FASTINGPERFORMED BY: [facility] Rjboka7163 [facility] [id number] Magnesium, Serum 1.6 mg/dL (Normal) Range: 1.6-2.3 92-Tpa-057896:48 TSH (THYROID STIMULATING Comments: PATIENT NOT FASTINGPERFORMED BY: [facility] Ypcrqf4182 [facility] [id number] HORMONE) (34193) TSH 6.340 {uIU/mL} (Abnormal) Range: 0.450-4.500 :48 URIC ACID BLOOD (68718) Comments: PATIENT NOT FASTINGPERFORMED BY: [facility] Lsionh3570 Max [facility]aKind[facility] [id number] Uric Acid, Serum 6.1 mg/dL (Normal) Range: 2.5-7.1 Comments: Therapeutic target for gout patients: <6.0 :09 Blood Glucose , Office (37322) Blood Glucose , Office 116 (Normal) :09 HgA1C , Office (47277) HgA1C , Office 6.7 % (Normal) Range: 4.6 - 7.1 :19 Basic Metabolic Profile (BMP) Comments: Order Date: 03/12/16 Order #: [id number] District Hospital [address]wlwjdacnj37[address] [place], [address] GAP 7 (Normal) Range: 5-15 CO2 29.0 [...] :19 T4 Total, Thyroxin Comments: Order Date: 03/12/16OV Order #: [id number] District Hospital Vkhuvkpcod6[address] [place], [address] T4 THYROXIN 9.4 ug/dL (Normal) Range: 4.8-13.9 83-Ytp-045019:19 Thyroid Stim Hormone (TSH) Comments: Order Date: 03/12/16OV Order #: [id number] [facility] Qcxgiccrty9794 [address] [place], [address] TSH 5.44 {uIU/mL} (Abnormal) Range: 0.358-3.74 03-Nri-952955:49 Aerobic Bacterial Culture Comments: PATIENT NOT FASTINGPERFORMED BY: [address] [id number] Information: RT AXILLA Result 1 MRSA (Abnormal) [...] Negative (Normal) Comments: PATIENT NOT FASTINGPERFORMED BY: LabCo[address] [id number] Information: NASAL 5:49 Culture 18-Eda-906323:20 Basic Metabolic Profile (BMP) Comments: [facility] Xshiuuazan79[address] [place], [address] GAP 7 (Normal) Range: 5-15 CO2 29.0 [...] A.D.A. criteria. :02 Blood Glucose , Office (69654) Blood Glucose , Office 137 (Normal) :54 Urine Drug Screen (Office - WNL (Normal) Comments: pos for oxy, all else neg Urine Drug Screen 6 Panel) Comments: All negative except Oxy (41437) :52 HgA1C , Office (72781) Comments: 7.3 HgA1C , Office 7.3 % (Abnormal) Range: 4.6 - 7.1 :43 Basic Metabolic Profile (BMP) Comments: DR URBINA ORDERED BMPDR MALCOLM ORDERED [facility]IVER LIPIDHigh[facility] Hospital Yaswbdtlgq5317 [place], [place], [address] GAP 3 (Abnormal) Range: 5-15 CO2 33.0 mmol/L (Abnormal) Range: 21.0-32.0 CL 102 mmol/L (Normal) Range: 98-107 K 3.4 mmol/L (Abnormal) Range: 3.5-5.1 Comments: ADDENDA: Denisse at [facility] aware of potassium level NA 138 [...] 7-18 GLU 101 mg/dL (Normal) Range: 70-110 2-Chw-232514:43 Lipid Profile Comments: DR URBINA ORDERED [facility] ORDERED LIVER LIPIDHighland District Hospital Ifclfkuian0252 Rafaeljosé PanchalT[address] [place], [place], [address] VLDL 26 mg/dL (Normal) Range: 5-40 LDL [...] 200-240 mg/dL Borderline >240 mg/dL High Risk :43 Liver Profile Comments: DR URBINA ORDERED [facility] ORDERED LIVER LIPIDHighland District Hospital Lcezbtbwkl9499 Rafael[address]alT[address] [place], [place], [address] D BILI 0.14 mg/dL (Normal) Range: 0.00-0.30 T BILI 0.40 mg/dL (Normal) Range: 0.20-1.00 ALT 16 U/L (Normal) Range: 12-78 ALK P 112 U/L (Normal) Range: 50-136 AST 19 U/L (Normal) Range: 15-37 GLOB 3.9 g/dL (Abnormal) Range: 2.3-3.5 ALB 3.0 g/dL (Abnormal) Range: 3.4-5.0 T PROT 6.9 g/dL (Normal) Range: 6.4-8.2 0-Gaj-173992:02 Blood Glucose , Office (11510) Blood Glucose , Office 160 (Normal) 20-Jvq-594449:37 HgA1C , Office (63472) Comments: 7.2 HgA1C , Office 7.2 % (Abnormal) Range: 4.6 - 7.1 42-Iyb-155876:24 MRSA Culture (73099) Comments: [facility] Wldbrzacmh7[address] [place], [place], [address] MRSA RESULT Negative (Normal) 0-Fsd-492339:59 Metabolic Panel, Basic Comments: send to Dr.Masroor Urbina; PATIENT NOT FASTINGPERFORMED BY: [facility] Qohhxx9489 [facility] [id number] Information: [id number] (22309) Calcium, Serum 10.7 mg/dL (Abnormal) Range: 8.7-10.3 [...] Glucose, Serum 182 mg/dL (Abnormal) Range: 65-99 5-Fcz-439646:09 MRSA Culture (59101) Comments: [facility] Vewzxtjybc8[address] [place], [place], [address] MRSA RESULT POSITIVE (Abnormal) 54-Wtx-44692:39 Lipid Profile Comments: [facility] Ijnnktwqcw[address]. [place], [place], [address] VLDL 23 mg/dL (Normal) Range: 5-40 LDL [...] mg/dL High Risk :39 Liver Profile Comments: [facility] [address]tr[address] [place], [place], [address] ; non-emergent and handled by cardio D BILI 0.14 mg/dL (Normal) Range: 0.00-0.30 T BILI 0.50 mg/dL (Normal) Range: 0.20-1.00 ALT 38 U/L (Normal) Range: 12-78 ALK P 79 U/L (Normal) Range: 50-136 AST 47 U/L (Abnormal) Range: 15-37 GLOB 4.3 g/dL (Abnormal) Range: 2.3-3.5 ALB 3.5 g/dL (Normal) Range: 3.4-5.0 T PROT 7.8 g/dL (Normal) Range: 6.4-8.2 :39 T4 Total, Thyroxin Comments: [facility] [address] [place], [address] T4 THYROXIN 10.9 ug/dL (Normal) Range: 4.8-13.9 :39 Thyroid Stim Hormone (TSH) Comments: [facility] [address]our[address] [place], [address] TSH 3.63 {uIU/mL} (Normal) Range: 0.358-3.74 6-Pid-705911:13 LIPID PANEL (13307) Comments: PATIENT WAS FASTINGPERFORMED BY: LabCoSelect at BellevilleXgyauw5203 [facility] [id number] LDL/HDL Ratio 1.2 {ratio_units} (Normal) Range: 0.0-3.2 [...] Cholesterol, Total 160 mg/dL (Normal) Range: 100-199 2-Rrd-965086:13 CBC W/AUTO DIFF WBC Comments: PATIENT WAS FASTINGPERFORMED BY: LabCoSelect at BellevilleRqgkli9397 [facility] [id number] Information: [id number] (66746) Immature Grans (Abs) 0.0 {x10E3/uL} (Normal) Range: [...] 3.77-5.28 WBC 4.5 {x10E3/uL} (Normal) Range: 3.4-10.8 4-Qcz-956682:13 METABOLIC PANEL, COMPREHENSIVE Comments: PATIENT WAS FASTINGPERFORMED BY: [facility] Vhqomu9101 [facility] [id number] (99683) ALT (SGPT) 8 [iU]/L (Normal) Range: 0-32 [...] Glucose, Serum 109 mg/dL (Abnormal) Range: 65-99 4-Omh-734255:15 Basic Metabolic Profile (BMP) Comments: [facility] Okjhrginkw0449 [place], [address] GAP 7 (Normal) Range: 5-15 CO2 30.0 [...] 200 mg/dLsuggests DIABETES MELLITUS per A.D.A. criteria. 8-Idn-356688:15 CBC W/Diff, Automated Comments: [facility] Uyjcgmuyjw9781 [place], [address] Absolute Lymph 0.95 {X10_3/ul} (Normal) Range: 0.83-4.51 [...] 4.2-5.4 WBC 5.4 K/mm3 (Normal) Range: 4.4-11.0 55-Tlo-388541:31 LIPID PANEL ([id number]) Comments: PATIENT WAS FASTINGPERFORMED BY: [email or web address] [id number]; non-emergent till apt LDL/HDL Ratio 1.6 {ratio_units} [...] Cholesterol, Total 219 mg/dL (Abnormal) Range: 100-199 76-Het-290027:31 CBC with auto diff Comments: PATIENT WAS FASTINGPERFORMED BY: [email or web address]xx[place] [id number] Information: [id number] ([id number]) Immature Grans (Abs) 0.0 {x10E3/uL} (Normal) Range: [...] 3.77-5.28 WBC 5.2 {x10E3/uL} (Normal) Range: 3.4-10.8 10-Ayi-[id number]:31 MICROALBUMIN: CREATININE RATIO Comments: PATIENT WAS FASTINGPERFORMED BY: [facility] [place] [id number] ([id number]) AND ([id number]) Microalb/Creat Ratio 93.7 {mg/g_creat} (Abnormal) Range: 0.0-30.0 Microalbumin, Urine 196.4 ug/mL (Abnormal) Range: 0.0-17.0 Creatinine, Urine 209.7 mg/dL (Normal) Range: 15.0-278.0 69-Fhp-935112:31 METABOLIC PANEL, COMPREHENSIVE Comments: PATIENT WAS FASTINGPERFORMED BY: [email or web address] [id number] ([id number]) ALT (SGPT) 20 [iU]/L (Normal) Range: 0-32 [...] Glucose, Serum 120 mg/dL (Abnormal) Range: 65-99 33-Naa-443861:31 Hemoglobin Glyclated (HGB A1C) Comments: PATIENT WAS FASTINGPERFORMED BY: [facility] [id number] [facility] [id number] ([id number]) Hemoglobin A1c 7.6 % (Abnormal) Range: 4.8-5.6 Comments: . Pre-diabetes: 5.7 - 6.4 Diabetes: >6.4 Glycemic control for adults with diabetes: <7.0 33-Icy-863445:30 Urinalysis, Complete Comments: Order Date: 07/18/15How was Urine Obtained? CLEAN [facility] [id number] [place], [place], [id number] MUCUS, URINE 0 SEEN {/hpf} (Normal) BACTERIA [...] (Abnormal) CLARITY Clear (Normal) COLOR Yellow (Normal) 09-Nrx-661273:43 CBC W/Diff, Automated Comments: [facility] [address] [place], [address] PATH REV May foll (Normal) SMEAR COMMENT [...] 4.2-5.4 WBC 15.1 K/mm3 (Abnormal) Range: 4.4-11.0 46-Wxh-190040:43 Comprehensive Metabolic Profil Comments: [facility] [address] [place], [place], [id number] GAP 8 (Normal) Range: 5-15 CO2 33.0 [...] 200 mg/dLsuggests DIABETES MELLITUS per A.D.A. criteria. 60-Iuj-400046:43 Lactic Acid Comments: Comments: To be drawn 6H [facility] [address]zst[address] [place], [address] LACTIC ACID 1.7 mmol/L (Normal) Range: 0.4-2.0 42-Ejr-753053:43 Magnesium Comments: [facility] [address] [place], [address] MG 1.3 mg/dL (Abnormal) Range: 1.8-2.4 20-Tce-145098:43 Partial Thromboplast Time Comments: [facility] [address] [place], [id number] PTT 31.4 s (Normal) Range: 24.1-36.2 12-Hfb-926495:43 Phosphorus Comments: [facility] [address] 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 Letter Indication: Encounter for annual general [...] DF then follow up q [facility] Indication: Constipation Hypertensive heart disease without [...] mellitus type 2, insulin dependent Planned Observations PARATHORMONE ([id number])Indication: Hypercalcemia On: 51-Xfp-288836:05 Request CBC, Platelets & Auto Diff (16991)Indication: History of sarcoidosis On: 77-Tuv-553020:54 Request Metabolic Panel, Comprehensive ([id number])Indication: History of sarcoidosis On: 83-Kia-488546:54 Request URINE CALCIUM ZEINAB TIMED (29233)Indication: History of sarcoidosis On: 60-Tny-248064:53 Request Cologuard - Strool Based DNA Test, CRC SCREEN ([id number])Indication: Encounter for screening for malignant neoplasm of colon (Renamed from Special screening for malignant neoplasms, colon) On: 22-Ssh-792917:05 Request FECAL OCCULT- Tubes sent home (73553)Indication: Encounter for screening for malignant neoplasm of colon (Renamed from Special screening for malignant neoplasms, colon) On: 94-Pjb-291281:09 Request Lipid Panel (97654)Indication: Diabetes mellitus type 2, insulin dependent On: 03-Xrj-936072:08 Request Comments: around January Metabolic Panel, Comprehensive (04941)Indication: Diabetes mellitus type 2, insulin dependent On: 86-Ofb-229084:08 Request Comments: around January CBC, Platelets & Auto Diff (57818)Indication: Diabetes mellitus type 2, insulin dependent On: 98-Gbr-461823:08 Request Comments: around January TSH (68449)Indication: Diabetes mellitus type 2, insulin dependent On: 08-Cjp-486361:08 Request Comments: around January Rapid Flu (28290 x 2)Indication: Unspecified Diagnosis On: 41-Eky-62911:33 Request CBC & PLATELETS (AUTO) (70881)Indication: Abdominal pain On: 0-Sld-001074:57 Request CULTURE, NOSE (18580)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 On: :31 Request Comments: check for MRSA MRSA Culture ([id number])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 On: 99-Abo-383182:23 Request Comments: rt axila HgA1C , Office (63218)Indication: Diabetes mellitus type 2, insulin dependent On: 43-Rkg-857277:21 Request Urinalysis, Office (15532)Indication: History of MRSA infection On: 04-Gxp-533620:42 Request Hemoglobin Glyclated (HGB A1C) (77901)Indication: Diabetes mellitus type 2, uncontrolled On: 14-Qft-155572:46 Request MICROALBUMIN: CREATININE RATIO (11765) AND (62916)Indication: Hypertensive heart disease without heart failure On: 37-Qoy-742477:46 Request Planned Encounters Medical; 3 Month FU - On: 28-Oct-2018 13:45 Comprehensive Internal Medicine Elsa Chopra CNP, CNP, Mary E Planned Procedures Overnight Pulse OX ([id number])By: On: 30-Jun-2018 Intent Lee Ann Schafer DO SPIROMETRY PERFORMED ([id number])By: On: 25-Jun-2018 Intent Visit, Nurse SPIROMETRY PERFORMED ([id number])By: On: 25-Jun-2018 Intent Visit, Nurse SIX MINUTE WALK TEST ([id number])By: On: 25-Jun-2018 Intent Visit, Nurse Flu Vaccine (Quadrivalent) [id number]: On: 20-May-2018 Intent Karly Chandra DEXA SCAN AXIAL SKELETON ([id number])By: On: 18-Dec-2017 Intent Elsa Chopra CNP, CNP, Mary E SCREENING DIGITAL TOMOSYNTHESIS OF On: 18-Dec-2017 Intent BREAST ([id number])By: Elsa Chopra CNP, CNP, Mary E Flu Vaccine (Quadrivalent) [id number]: On: 11-Jun-2017 Intent CiesElsa vargas CNP, CNP, Mary E Comments: InfluenzaLot #[id number]-L dltd, IMDose prefilled syringeVIS and ABN signedgiven by:GENARO blackwood PHYSICAL THERAPY TREATMENT On: 11-Dec-2016 Intent ([id number])By: Adelita Doshi LPN PHYSICAL THERAPY EVALUATION On: 11-Dec-2016 Intent ([id number])By: Elsa Chopra CNP, CNP, Mary E Toradol Injection, 30 mg On: 10-Dec-2016 Intent ([id number])By: Elsa Chopra CNP, CNP, Mary E Radiology - Hip - RightBy: Nav On: 10-Dec-2016 Intent Elsa MCKINLEY CNP Onelia Aerosol Treatment ([id number])By: Tico On: 16-Oct-2016 Intent Adelita LAM Flu Vaccine (Quadrivalent) [id number]: On: 11-Jul-2016 Intent Elsa Chopra CNP, CNP, Mary E Comments: FLUlot: [id number]:01/16site:Lt deltoidroute:IMdose:.5mlDEMICK, [place] Ultrasound - Abdomen CompleteBy: On: 03-Jul-2016 Intent Elsa Chopra CNP, CNP, Mary E Radiology - KUBBy: Elsa Chopra CNP On: 03-Jul-2016 Intent Elsa العلي CNP DRAIN/INJECT SMALL JOINT OR BURSA On: 18-May-2016 Intent ()By: Elsa Chopra CNP Comments: to left wrist joint 1/2 cc kenalog, 1/2 cc marcaine. Kenalog lot #[id number] exp Marcain lot [id number] ex Elsa MCKINLEY MAMMOGRAM, SCREENING, BOTH BREAST On: 11-May-2016 Intent ([id number])By: Elsa Chopra CNP, CNP, Mary E Radiology - Chest- PA and LatBy: On: 23-Aug-2015 Intent Fast DO, Madeline Vargas Comments: 4 weeks Radiology - Chest- PA [...] mellitus without complication) : DISCONTINUED - URINALYSIS ([id number]) Indication: Diabetes mellitus type II, controlled, with no complications (Renamed from Controlled type 2 diabetes mellitus without complication) CKD (chronic kidney disease), stage III : DISCONTINUED - MICROALBUMIN: CREATININE RATIO (16914) AND (97816) Indication: CKD (chronic kidney disease), stage III Diabetes mellitus type II, controlled, with no complications (Renamed from Controlled type 2 diabetes mellitus without complication) : DISCONTINUED - CBC, PLATELETS & AUT DIFF ([id number]) Indication: Diabetes mellitus type II, controlled, with no complications (Renamed from Controlled type 2 diabetes mellitus without complication) Diabetes mellitus type II, controlled, with no complications (Renamed from Controlled type 2 diabetes mellitus without complication) : DISCONTINUED - METABOLIC PANEL, COMPREHENSIVE ([id number]) Indication: Diabetes mellitus type II, controlled, with no complications (Renamed from Controlled type 2 diabetes mellitus without complication) Diabetes mellitus type II, controlled, with no complications (Renamed from Controlled type 2 diabetes mellitus without complication) : DISCONTINUED - TSH (70827) Indication: Diabetes mellitus type II, controlled, with [...] dependent : DISCONTINUED - METABOLIC PANEL, BASIC ([id number]) Indication: Diabetes mellitus type 2, insulin dependent [...] Diabetes mellitus type 2, insulin dependent Encounters Phone Encounter On: 28-Jul-2018 16:56 Encounter Diagnosis: [...] patient does not have durable power of trust administrator or living will. The patient has noticed getting bored, poor spirits most of time and lack of energy. Other providers contributing to the lnydsey bolton's care are oliving machine operator () and urologist (). Note for [...] sleeping poorly. Patient has been com End: 18-Dec-2017 14:15 pliant with instructions. Current [...] and is sleeping poorly. Patient has been [place] End: 18-Sep-2017 13:50 pliant with instructions. Current [...] and is sleeping poorly. Patient has been [place] End: 11-Jun-2017 14:46 pliant with instructions. Current [...] - Reason for ER visit: note: (surgery [facility]. ). The patient feels well with minor [...] MRSA. She has had pre-op testing at [facility] on 10-14-2015, for Lumbar microdecompression for 10-24-[address] Quick Technician Dr. Dahl for papers to be signed [...] 19-Jul-2015 22:21 - sharp pain- went to [facility] ER). 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
--- OUTSIDE RECORDS SUMMARY | 2018-09-25 14:37 | XMS RPT_ITS | Continuity of Care Document ---
:1950 Author Organization [facility] Address [address] [facility] [address] [place] [address] Phone Care Team Providers Name Role Phone Nav ARLENElsa Unavailable Malcolm STANLEY, Casey Florian Unavailable Linden DO , Dr. Aaron Diaz Unavailable John Batista Annalisa Unavailable Dr. Abimael Ag Unavailable Kirby STANLEY, Jared Galeano Unavailable Pascale Boston Unavailable Adelita Doshi LPN Unavailable Unavailable Karly Chandra Unavailable Unavailable Yas, Trina Unavailable Unavailable Unavailable Unavailable Problems Name Dates [...] 585.3) Comments: follows with Dr. Munguia in [place], seen for sarcoidosis currently, stableGFR 40 Status: [...] on wean of steroid Scale 201-250. 5 -130 8 yleya854-434 10 hlkfu603-590 12 units>401 15 unitsad ding metformin not [...] given in L arm subcutaneously paitent tolerated wellLOT#[id number]#2020 NOV 06 Status: Active Postmenopausal (Renamed from Postmenopausal status) (Z78.0, V49.81) Status: Active Pregnancies () Comments: 1. 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) Comments: Seemackenzie Urbina at [facility] for sarcoid in bone marrow just [...] 719.43) Status: Active Medications Name Dates Details ACCU-MARYJANE GUPTA (In Vitro Strip) 1 (one) Strip tid for 30 days Quantity: 100 {Strip} Refills: 3 Ordered:09-Jan-2016 Madeline Florez DO Start : 09-Jan-2016 Active Allopurinol 100 MG Oral Tablet 1 (one) Tablet Tablet daily for 30 days Quantity: 30 {Tablet} Refills: 3 Ordered:11-May-2016 Slarb MINING SUPPORT WORKERAdelita Start : 08-May-2016 Active AmLODIPine Besylate 5 [...] {Tablet} Refills: 3 Ordered:04-Sep-2017 Nav MCKINLEY Elsa RODRIGUEZelba MCKINLEY Elsa Luke Start : 04-Sep-2017 Active Calcitriol 0.25 MCG Oral Capsule 1 (one) Capsule daily for 0 days Quantity: 30 {Capsule} Refills: 6 Ordered:12-May-2018 Nav MCKINLEY Elsa RODRIGUEZelba MCKINLEY Elsa Luke Start : 12-May-2018 Active Citalopram Hydrobromide 40 MG Oral Tablet 1/2 tab tablet tablet daily for 30 days Quantity: 30 {Tablet} Refills: 3 Ordered:02-May-2018 Nav MCKINLEY Elsa RODRIGUEZelba MCKINLEY Elsa Luke Start : 02-May-2018 Active Cyclobenzaprine HCl 10 MG Oral Tablet 1 (one) Tablet as needed for 0 days Quantity: 30 {Tablet} Refills: 0 Ordered:11-Jun-2017 Nav MCKINLEY Elsa RODRIGUEZelba MCKINLEY Elsa Luke Start : 11-Jun-2017 Active [...] Quantity: 60 {Tablet} Refills: 0 Ordered:07-Jul-2018 Nav MCKINLEY, Elsa Reyes CNP, Elsa Luke Start : 07-Jul-2018 Active Comments:Oarrs rundx F41.9#60thirty days Melatonin 1 MG Oral Tablet 3 (three) Tablet qhs for 0 days Quantity: 60 {Tablet} Refills: 0 Ordered:12-Mar-2016 Nav MCKINLEY, Elsa Reyes SPRAY DRIER OPERATOR, Elsa Luke Start : 12-Mar-2016 Active MetFORMIN HCl ER 500 MG Oral Tablet Extended Release 24 Hour 2 (two) Tablet bid for 30 days Quantity: 120 {Tablet} Refills: 6 Ordered:27-May-2018 Nav MCKINLEY, Elsa Reyes SPRAY DRIER OPERATOR, Elsa Luke Start : 27-May-2018 Active Omeprazole 20 MG Oral Tablet Delayed Release 1 (one) Tablet DR Tablet DR daily for 90 days Quantity: 90 {QS} Refills: 3 Ordered:08-Jan-2018 Nav MCKINLEY, Elsa Reyes CNP, Elsa Luke Start : 08-Jan-2018 Active Oxycodone-Acetaminophen 7.5-325 MG Oral Tablet 1 (one) Tablet Tablet bid as needed for 0 days Quantity: 60 {Tablet} Refills: 0 Ordered:03-Jul-2016 Nav MCKINLEY, Elsa Reyes SPRAY DRIER OPERATOR, Elsa Luke Start : 03-Jul-2016 Active Comments:Medication taken as needed. Promethazine HCl 25 MG Oral Tablet 1 (one) Tablet q 8hrs as needed for 30 days Quantity: 30 {Tablet} Refills: 1 Ordered:27-May-2018 Nav MCKINLEY, Elsa Reyes CNP, Elsa Luke Start : 27-May-2018 Active Comments:Medication [...] 60 {Tablet} Refills: 0 Ordered:25-Jul-2015 Madeline MOY A Start : 18-Jul-2015 Active VITAMIN D3, 48178GNTY (Oral Capsule) 1 (one) Capsule Capsule once a month for 30 days Quantity: 1 {Capsule} Refills: 0 Ordered:25-Jul-2015 Madeline MOY A Start : 18-Jul-2015 Active AMIODARONE HCL, [...] days Quantity: 15 {Tablet} Refills: 0 Ordered:24-Jun-2018 Elsa Chopra CNP, CNP, Mary E Start : 24-Jun-2018 End : 24-Jul-2018 Inactive [...] Quantity: 60 {Tablet} Refills: 0 Ordered:19-Aug-2015 Madeline Florez DO Start : 18-Jul-2015 End : 17-Aug-2015 Inactive PEN NEEDLES 3/16, 31G X 5 MM (Miscellaneous) 1 (one) Misc q am for 30 days Quantity: 30 {Unspecified} Refills: 0 Ordered:28-Nov-2015 Slacharo LAMAdelita Start : 28-Nov-2015 End : 28-Dec-2015 Inactive PIOGLITAZONE HCL, 15MG (Oral Tablet) 1 (one) Tablet Tablet daily for 30 days Quantity: 30 {Tablet} Refills: 0 Ordered:19-Aug-2015 Madeline Florez DO Start : 18-Jul-2015 End : 17-Aug-2015 Inactive PREDNISONE, 20MG (Oral Tablet) 1/2 Tablet Tablet QOD for 30 days Quantity: 15 {Tablet} Refills: 0 Ordered:21-Oct-2015 Elsa Chopra CNP, CNP, Onelia Start : 21-Oct-2015 End : 20-Nov-2015 Inactive Tradjenta 5 MG Oral Tablet 1 (one) Tablet daily for 0 days Quantity: 30 {Tablet} Refills: 3 Ordered:20-May-2018 Nav MCKINLEY, Elsa Reyes CNP, Onelia Start : 23-Apr-2018 End : 20-May-2018 Inactive Unisom Sleepgels 50 MG Oral Capsule 1 (one) Capsule Capsule qhs for 0 days Quantity: 30 {Capsule} Refills: 0 Ordered:10-Aug-2016 Mike GENARODora Start : 07-Feb-2016 End : 10-Aug-2016 Inactive Xtampza ER 13.5 MG Oral Capsule ER 12 Hour Abuse-Deterrent 1 (one) Capsule q 12 hours for 30 days Quantity: 60 {Capsule} Refills: 0 Ordered:18-Jan-2018 Nav SPRAY DRIER OPERATOR, Elsa Reyes SPRAY DRIER OPERATOR, Elsa Luke Start : 18-Dec-2017 End : [...] Start : 21-Oct-2015 End : 20-Jan-2016 Discontinued LEVEMIR, 100UNIT/ML (Subcutaneous Solution) 20 Solution units each morning for 30 days Quantity: 1 {Vial} Refills: 6 Ordered:07-Feb-2016 Nav SPRAY DRIER OPERATOR, Elsa Reyes SPRAY DRIER OPERATOR, Onelia Start : 03-Oct-2015 End : 07-Feb-2016 Discontinued MACROBID, 100MG (Oral Capsule) q12hrs (100 MG) End : 05-Aug-2015 Discontinued Comments:[facility] MUPIROCIN, 2% (External Ointment) 1 (one) [...] : 05-Aug-2015 Discontinued Comments:1,250mg IV q24hrs x 84ozaw3,500mg IV q24hrs #14 Allergies and Adverse Reactions [...] Comments: was seeing Dr. Munguia's partner in [place] Dr. Morel, gfr 43%, has proteinuria Status: [...] Knee Replacement, Total Completed Comments: Right. vertebroplasty Completed Date Value Details 17-Feb-2018 Cardiology Visit Report Result: Comments: See Note; NOTES: [facility] [address] [place] [address] OFFICE VISIT Date of Service: 02/17/18 MR#: [id number] Acct: [id number] Name: SHREYAS KATHLEEN Rep #: [id number] : 1950 Provider: Casey Fowler MD Age/Sex: 67/F Location: [facility] Status: Signed HPI HPI Details: SHREYAS KATHLEEN, is a 67 F who presents to the office today for for outpatien t cardiovascular follow-up of her history of underlying CAD, non-ST segment elevation CA, paroxysmal atrial fibrillation, superimposed upon a history [...] PFSH Medical History Atherosclerotic heart disease of [place] coronary artery without angina pectoris (Chronic) History [...] stenosis Assessment AND Plan 1. Atherosclerosis of [place] coronary artery of [place] heart without angina pectoris I25.10 Mild Plan [...] scheduled for an outpatient visit in [facility] 9 months unless needed sooner. Thank you for allowing me to participate in the care of your patient. Please don't hesitate to call if any issues arise. This note was generated using a [employer] system and there may be incorrect words, spelling or punctuation that were not noted when reviewing the office note prior to saving. Follow Up 9 Months Coding Level of Care Code Off vis,est,kelly l 4 Diagnoses Atherosclerosis of [place] coronary artery of [place] heart without angina pectoris I25.10 [place] vs. transplanted heart: [place] heart Paroxysmal atrial fibrillation I48.0 Hyperlipidemia, u nspecified hyperlipidemia type E78.5 Hyperlipidemia type: unspecified Essential hypertension I10 Hypertension type: essential hypertension Long-term use of high-risk medication Z79.899 Coding Level of Care Code Off vis,est,level 4 Diagnoses Atherosclerosis of [place] coronary artery of [place] heart without angina pectoris I25.10 [place] vs. transplanted heart: [place] heart Paroxysmal atrial fibrillat ion I48.0 Hyperlipidemia, unspecified hyperlipidemia type E78.5 Hyperlipidemia type: unspecified Essential hypertension I10 Hypertension type: essential hypertension Long-term use of high-risk medicatio n Z79.899 02/17/18 1530 <Electronically signed by Casey Fowler MD> Date Casey Glasgow Signature: Date _ (if applicable) CC: Elsa Chopra NP 14-Feb-2018 SCREENING MAMM (CAD), BILAT Result: Comments: See Note; NOTES: [facility] Imaging Services [address] [place] [address] SCREENING MAMM (CAD), BILAT MR#: [id number] Acct: [id number] Name: SHREYAS KATHLEEN Rep #: [id number] : 1950 F 67 From: Elias Finn MD PCP: Elsa Chopra NP Status: REG CLI Study: SCREENING MAMM (CAD), BILAT Date of Exam: 02/14/18 Exam# [id number] Ordering Dr: Elsa Chopra MAMMO GRAPHY - [...] these results will be sent to the the medical center nt by the facility within 30 days. Approximately 10% of breast cancers are not detected by mammography. A normal mammogram should not delay biopsy of a clinically suspicious abnormality. [id number] Elect ronically Signed: Elias Finn MD at 8:30 EDT Tel [phone], Service support , CC: Elsa Chopra NP Fiberglass Boat Maker: Signed 21-Jan-2018 Dexa Bone Density Study Result: Comments: See Note; NOTES: [facility] Imaging Services [address] [place] [address] Dexa Bone Density Study MR#: [id number] Acct: [id number] Name: SHREYAS KATHLEEN Rep #: [id number] : 1950 F 67 From: Elias Finn MD PCP: Elsa Chopra NP Status: REG CLI Study: Dexa Bone Density Study Date of Exam: 01/21/18 Exam# [id number] Ordering Dr: Elsa Chopra STUDY: DUAL E [...] Elias Finn MD at 15:36 EDT Tel [phone], Service support , CC: Elsa Chopra NP Fiberglass Boat Maker: Signed 10-Dec-2016 Hip 2-3 Views with Pelvis Result: Comments: See Note; NOTES: [facility] Imaging Services [address] [place] [address] Verdana 4d Hip 2-3 Views with Pelvis MR#: [id number] Acct: [id number] Name: SHREYAS KATHLEEN Rep #: [id number] : 1950 F 66 From: Herve Jimenez MD PCP: Elsa Chopra Status: REG CLI Study: Hip 2-3 Views with Pelvis Date of Exam: 12/10/16 Exam# [id number] Ordering Dr: Elsa Chopra STUDY : X-RAY [...] FACR at 11:31 EDT , Service support [phone], CC: Elsa Chopra Fiberglass Boat Maker: Signed 05-Jul-2016 Abdomen Complete Result: Comments: See Note; NOTES: [facility] Imaging Services [address] [place] [address] Verdana 4d Abdomen Complete MR#: [id number] Acct: [id number] Name: SHREYAS KATHLEEN Rep #: [id number] : 1950 F 66 From: Elias Finn MD PCP: Elsa Chopra Status: REG CLI Study: Abdomen Complete Date of Exam: 07/05/16 Exam# [id number] Ordering Dr: Elsa Chopra STUDY: ABDOMINAL ULTRASOUND [...] Elias Finn MD at 9:35 EDT Tel [phone], Service support [phone], CC: Elsa Chopra Fiberglass Boat Maker: Signed 05-Jul-2016 Abdomen Single View Result: Comments: See Note; NOTES: [facility] Imaging Services [address] [place] [address] Verdana 4d Abdomen Single View MR#: [id number] Acct: [id number] Name: SHREYAS KATHLEEN Rep #: [id number] : 1950 F 66 From: Elias Finn MD PCP: Elsa Chopra Status: REG CLI Study: Abdomen Single View Date of Exam: 07/05/16 Exam# [id number] Ordering Dr: Elsa Chopra STUDY: X-RA Y [...] of the L1 vertebrae. ORDER # : [id number] RAD/Abdomen Single View IMPRESSION: Moderate amount of fecal material is seen in the colon. Electronically Signed: Elias Finn MD at 10:34 EDT Tel [phone], Service sup port [phone], CC: Elsa Chopra Fiberglass Boat Maker: Signed 18-May-2016 Bilat Scrn Digital AND CAD Result: Comments: See Note; NOTES: [facility] Imaging Services [address] [place] [address] Verdana 4d Bilat Scrn Digital AND CAD MR#: [id number] Acct: [id number] Name: JACINTO KATHLEEN Rep #: [id number] : 1950 F 65 From: Elias Finn MD PCP: Elsa Chopra Status: REG CLI Study: [place]ales Digital AND CAD Date of Exam: 05/18/16 Exam# [id number] Ordering Dr: Elsa Chopra MAMMOGRAPHY - BILATERAL [...] no significant change since the prior study. BI/R[place]ales Digital AND CAD IMPRESSION: Stab le bilateral screening mammogram. Yearly follow-up mammogram recommended. (A) ASSESSMENT CATEGORY: BIRADS Category 1: Negative. A letter regarding these results yane l be sent to the patient by the facility within 30 days. Approximately 10% of breast cancers are not detected by mammography. A normal mammogram should not delay biopsy of a clinically suspicious abnor mality. [id number] Electronically Signed: Elias Finn MD at 12:53 EDT Tel [phone], Service support [phone], CC: Elsa Simpsonabelardosam Fiberglass Boat Maker: Signed 14-Feb-2016 Shoulder min 2 Views Result: Comments: See Note; NOTES: [facility] Imaging Services [address] [place] [address] Nidiadana 4d Shoulder min 2 Views MR#: [id number] Acct: [id number] Name: SHREYAS KATHLEEN Rep #: [id number] : 1950 F 65 From: Herve Jimenez MD PCP: Madeline Florez DO Status: REG CLI Study: Shoulder min 2 Views Date of Exam: 02/14/16 Exam# [id number] Ordering Dr: Pascale Boston DO STUDY: X-RAY [...] FACR at 14:50 EDT , Service support [phone], Fax RAD/Shoulder min 2 Views IMPRESSION: Bilateral of the acromioclavicular joint, otherwise normal x-ray examination of the shoulder. Electronically Signed: Herve Jimenez MD, FACR at 14:50 EDT , Service support [phone], CC: Pascale Boston DO; Madeline Florez DO Fiberglass Boat Maker: Signed 21-Oct-2015 Spirometry (37205) Comments: mod restriction Result: 19-Sep-2015 Chest PA and Lateral Result: Comments: See Note; NOTES: [facility] Imaging Services [address] [place] [address] Verdana 4d Chest PA and Lateral MR#: [id number] Acct: [id number] Name: SHREYAS KATHLEEN Rep #: [id number] : 1950 F 65 From: Elias Finn MD PCP: Madeline Florez DO Status: REG CLI Study: Chest PA and Lateral Date of Exam: 09/19/15 Exam# [id number] Ordering Dr: Madeline Florez DO STUDY: X-RAY [...] Elias Finn MD at 13:58 EST Tel [phone], Service support [phone], RAD/Chest PA and Lateral IMPRESSION: Stable examination. No acute abnormality is seen. Electronically Doris d: Elias Finn MD at 13:58 EST Tel [phone], Service support [phone], CC: Madeline Florez DO Fiberglass Boat Maker: Signed 25-Aug-2015 Spine Lumbar (Routine) Result: Comments: See Note; NOTES: [facility] Imaging Services [address] [place] [address] Verdana 4d Spine Lumbar (Routine) MR#: [id number] Acct: [id number] Name: SHREYAS MAJOR Rep #: [id number] : 1950 F 65 From: Herve Jimenez MD PCP: Madeline Florez DO Status: REG CLI Study: Spine Lumbar (Routine) Date of Exam: 08/25/15 Exam# [id number] Ordering Dr: ELIZABETH DE LEON M.D. STUDY: [...] FACR at 17:43 EST , Service support [phone], CC: ELIZABETH DE LEON M.D.; Madeilne Florez DO Fiberglass Boat Maker: Signed 25-Aug-2015 Spine Thoracic (Routine) Result: Comments: See Note; NOTES: [facility] Imaging Services [address] [place] [address] Verda 4d Spine Thoracic (Routine) MR#: [id number] Acct: [id number] Name: SHREYAS SHARIF Rep #: [id number] : 1950 F 65 From: Herve Jimenez MD PCP: Madeline Florez DO Status: REG CLI Study: Spine Thoracic (Routine) Date of Exam: 08/25/15 Exam# [id number] Ordering Dr: ELIZABETH RUIZ M.D. STUDY: MRI [...] FACR at 17:45 EST , Service support [phone], CC: ELIZABETH DE LEON M.D.; Komal Florez DO Fiberglass Boat Maker: Signed 17-Aug-2015 Chest PA and Lateral Result: Comments: See Note; NOTES: [facility] Imaging Services [address] [place] [id number] [place] [address] 4d Chest PA and Lateral MR#: [id number] Acct: [id number] Name: SHREYAS KATHLEEN Rep #: [id number] : 1950 F 65 From: Elias Finn MD PCP: Madeline Florez DO Status: REG CLI Study: Chest PA and Lateral Date of Exam: 08/17/15 Exam# [id number] Ordering Dr: Madeline Florez DO STUDY: X-RAY [...] Elias Finn MD at 11:09 EST Tel [phone], Service support [phone], Fax RAD/Chest PA and Lateral IMPRESSION: Residual changes persist in the right middle lobe and there has been some improvement. Further followup is recommended. Electr onically Signed: Elias Finn MD at 11:09 EST Tel [phone], Service support [phone], CC: Madeline Florez DO Fiberglass Boat Maker: Signed 12-Aug-2015 Discharge Instruction Result: Comments: See Note; NOTES: [facility] Medical Records Department [address] [place] [address] Discharge Instruction 08/10/15 1702 MR#: [id number] Acct: [id number] Name: SHREYAS KATHLEEN Rep #: [id number] : 1950 65 From: Denny Bone MD [...] any unexpected problems, contact your doctor. Call [facility] ([phone]) or report to the closest Emergency Room. Call 911 if necessary. 08/12/15 1502 <Elect ronically signed by Denny Bone MD> Date Denny Bone MD Cosigner Signature (If Indicated): Date CC: Madeline Florez DO 12-Aug-2015 Emergency Department Summary Result: Comments: See Note; NOTES: [facility] Medical Records Department [address] [facility] [place] [address] Emergency Department Summary MR#: [id number] Acct: [id number] Name: SHREYAS KATHLEEN Rep #: [id number] : 1950 65 From: Denny Bone MD [...] the patient had blood cultures obtained at [facility] and they were called to Dr. [...] bacteremia. Denny Bone MD C C: Madeline Florez DO Katelyn Arenas MD T: NTS JOB: [id number] 08/12/15 1502 <Electronically signed by Denny Bone MD> Date Denny Bone MD Cosigner Signature (If Indicated): Date ___ CC: Madeline Fast DO; Katelyn Arenas MD Date Dictated: 08/10/151708 Date Transcribed: 08/10/151708 Fiberglass Boat Maker: Signed Social History Name Dates Details No Caffeine Use Status: Active No Drug Use Status: Active Non Drinker/No Alcohol Use Status: Active Tobacco use: Never smoker. Status: Active Smoking Status Name Dates Details Never smoker Vital Signs Date Test Result Details 49-Dig-421733:25 Temperature 98 f Comments: Method: Temporal Pulse [...] kg/m2 Body Surface Area Calculated 1.86 m2 17-Sda-458527:21 Temperature 97.6 f Pulse 100 /min Comments: [...] unknown, given order todayLast vision screen 2014 [employer] Temperature 98.3 f Pulse 75 /min Comments: [...] Size: Large Results Date Description Value Details :26 HgA1C , Office (28014) HgA1C , Office 6.4 % (Normal) Range: 4.6 - 7.1 :26 Blood Glucose , Office (61679) Blood Glucose , Office 163 (Normal) :00 MICROALBUMIN: CREATININE RATIO Comments: Jun 19; PATIENT WAS FASTINGPERFORMED BY: [facility] SomersetElxctq8062 [facility] [id number] ([id number]) AND (98865) Alb/Creat Ratio 266.9 {mg/g_creat} (Abnormal) Range: 0.0-30.0 Albumin, Urine 168.7 ug/mL (Normal) Creatinine, Urine 63.2 mg/dL (Normal) 37-Fbr-02180:00 Metabolic Panel, Comprehensive Comments: Jun 19; PATIENT WAS FASTINGPERFORMED BY: [facility] SomersetLibdvx9197 [facility] [id number] (69986) ALT (SGPT) 14 [iU]/L (Normal) Range: 0-32 [...] 8-27 Glucose 121 mg/dL (Abnormal) Range: 65-99 87-Tni-39962:00 HGB A1C (77951) Comments: June 19; PATIENT WAS FASTINGPERFORMED BY: [facility]6370 [facility] [id number] Hemoglobin A1c 7.0 % (Abnormal) Range: 4.8-5.6 Comments: . Prediabetes: 5.7 - 6.4 Diabetes: >6.4 Glycemic control for adults with diabetes: <7.0 11-Ven-218666:33 ALKALINE PHOSPHATASE-ISOENZYM Comments: PATIENT NOT FASTINGPERFORMED BY: [facility] [id number] (60846) Intestinal Frac.: 0 % (Normal) Range: 0-18 Bone Fraction: 27 % (Normal) Range: 14-68 Liver Fraction: 73 % (Normal) Range: 18-85 Alkaline Phosphatase 89 [iU]/L (Normal) Range: 39-117 44-Anp-602516:33 CBC, Platelets & Auto Diff Comments: PATIENT NOT FASTINGPERFORMED BY: [employer] Rfckdd7150 [facility] [id number] (42288) Immature Grans (Abs) 0.0 {x10E3/uL} (Normal) Range: [...] 3.77-5.28 WBC 5.9 {x10E3/uL} (Normal) Range: 3.4-10.8 48-Old-984423:22 HgA1C , Office (51799) Comments: 7.3 HgA1C , Office 7.3 % (Abnormal) Range: 4.6 - 7.1 :22 Blood Glucose , Office (59645) Blood Glucose , Office 173 (Normal) :40 Basic Metabolic Profile (BMP) Comments: SEND RESULTS OF BMP TO .[facility] Jncnmrdzcd6479 [facility]. [place], [place], [address] GAP 11 (Normal) Range: 5-15 CO2 27.0 [...] A.D.A. criteria.Please note revised GLUCOSE reference range nbtjkwzug62/02/2018. :40 Liver Profile Comments: SEND RESULTS OF BMP TO .[facility] [address] [place], [address] D BILI 0.09 mg/dL (Normal) Range: 0.00-0.30 T BILI 0.40 mg/dL (Normal) Range: 0.20-1.00 ALT 22 U/L (Normal) Range: 13-56 ALK P 103 U/L (Normal) Range: 45-117 AST 17 U/L (Normal) Range: 15-37 GLOB 4.0 g/dL (Normal) Range: 2.2-4.2 ALB 3.8 g/dL (Normal) Range: 3.2-5.0 T PROT 7.8 g/dL (Normal) Range: 6.4-8.2 :41 CALCIFEDIOL (30960) Comments: PATIENT WAS FASTINGPERFORMED BY: [employer]70 [facility] [id number] Vitamin D, 25-Hydroxy 44.2 ng/mL (Normal) Range: 30.0-100.0 Comments: Vitamin D deficiency has been defined by the [place]cd[place]iels ofMedicine and an Endocrine Society practice guideline as alevel of serum 25-OH vitamin D less than 20 ng/mL (1,2).The Endocrine Society went on to further define vitamin Dinsufficiency as a level between 21 and 29 ng/mL (2).1. IOM ([place]iels of Medicine). 2010. Dietary reference intakes for calcium and D. [place]: The National Academies Press.2. Jacinto MF, Eddy NC, Quintin JAVED, et al. Evaluation, treatment, and prevention of vitamin D deficiency: an Endocrine Society clinical practice guideline. JCEM. 2010; 96(7):1911-30. :41 METABOLIC PANEL, Comments: PATIENT WAS FASTINGPERFORMED BY: [facility]ines[facility] SomersetCcivth4130 [facility] [id number] Information: [id number],F26674; OV 03/19 COMPREHENSIVE (65446) ALT (SGPT) 15 [iU]/L (Normal) Range: 0-32 [...] 8-27 Glucose 143 mg/dL (Abnormal) Range: 65-99 50-Isl-699859:31 Blood Glucose , Office (70669) Blood Glucose , Office 211 (Normal) 79-Qay-083939:31 HgA1C , Office (42241) HgA1C , Office 6.8 % (Normal) Range: 4.6 - 7.1 22-Zyc-620427:33 CBC, Platelets & Auto Diff Comments: PATIENT WAS FASTINGPERFORMED BY: [facility] Eaicua8503 [facility] [id number] (27567) Immature Grans (Abs) 0.0 {x10E3/uL} (Normal) Range: [...] 3.77-5.28 WBC 7.7 {x10E3/uL} (Normal) Range: 3.4-10.8 86-Ykz-018843:33 Lipid Panel (92119) Comments: PATIENT WAS FASTINGPERFORMED BY: [employer]70 [facility] [id number] LDL/HDL Ratio 0.9 {ratio} (Normal) Range: 0.0-3.2 Comments: LDL/HDL Ratio Men Women 1/2 Avg.Risk 1.0 1.5 Av g.Risk 3.6 3.2 2X Avg.Risk 6.2 5.0 3X Avg.Risk 8.0 6.1 LDL Cholesterol Calc 35 mg/dL (Normal) Range: 0-99 VLDL Cholesterol Kiesha 53 mg/dL (Abnormal) Range: 5-40 HDL Cholesterol 41 mg/dL (Normal) Triglycerides 264 mg/dL (Abnormal) Range: 0-149 Cholesterol, Total 129 mg/dL (Normal) Range: 100-199 16-Dcs-344198:33 Metabolic Panel, Comprehensive Comments: PATIENT WAS FASTINGPERFORMED BY: [employer]70 [facility] [id number] (98577) ALT (SGPT) 18 [iU]/L (Normal) Range: 0-32 [...] 8-27 Glucose 150 mg/dL (Abnormal) Range: 65-99 53-Afy-265012:33 MICROALBUMIN: CREATININE RATIO Comments: PATIENT WAS FASTINGPERFORMED BY: Laser Light EnginesRobert Wood Johnson University Hospital SomersetJsbxtg7630 [facility] [id number] ([id number]) AND (09448) Alb/Creat Ratio 225.5 {mg/g_creat} (Abnormal) Range: 0.0-30.0 Albumin, Urine 112.5 ug/mL (Normal) Creatinine, Urine 49.9 mg/dL (Normal) 73-Qfe-730447:33 URINALYSIS (44515) Comments: PATIENT WAS FASTINGPERFORMED BY: Laser Light EnginesRobert Wood Johnson University Hospital SomersetXrlakm9539 [facility] [id number] Microscopic Examination See below: (Normal) Comments: Microscopic was indicated and was performed. Nitrite, Urine Negative (Normal) Urobilinogen,Semi-Qn 0.2 mg/dL (Normal) Range: 0.2-1.0 Bilirubin Negative (Normal) Occult Blood Negative (Normal) Ketones Negative (Normal) Glucose Negative (Normal) Protein Trace (Normal) WBC Esterase 2+ (Abnormal) Appearance Clear (Normal) Urine-Color Yellow (Normal) pH 6.5 (Normal) Range: 5.0-7.5 Specific [place] 1.014 (Normal) Range: 1.005-1.030 79-Lzj-604777:33 TSH (82552) Comments: PATIENT WAS FASTINGPERFORMED BY: zPerfectGift [place] [id number] TSH 3.870 {uIU/mL} (Normal) Range: 0.450-4.500 :33 Microscopic Examination Comments: PATIENT WAS FASTINGPERFORMED BY: ScandlinesFormerly [facility] [id number] Bacteria Few (Normal) Mucus Threads Present (Normal) Cast Type Hyaline casts (Normal) Casts Present {/lpf} (Abnormal) Epithelial Cells (non renal) >10 {/hpf} (Abnormal) Range: 0 - 10 RBC 0-2 {/hpf} (Normal) Range: 0 - 2 WBC 11-30 {/hpf} (Abnormal) Range: 0 - 5 64-Fja-031817:57 HgA1C , Office (25247) Comments: 6.6 HgA1C , Office 6.6 % (Normal) Range: 4.6 - 7.1 39-Oag-178209:57 Blood Glucose , Office (59817) Blood Glucose , Office 211 (Normal) 16-Iad-112216:53 HEPATIC FUNCTION PANEL Comments: PATIENT NOT FASTINGPERFORMED BY: ScandlinesFormerly [facility] [id number] (64311) ALT (SGPT) 13 [iU]/L (Normal) Range: 0-32 AST (SGOT) 17 [iU]/L (Normal) Range: 0-40 Alkaline Phosphatase, S 89 [iU]/L (Normal) Range: 39-117 Bilirubin, Direct 0.08 mg/dL (Normal) Range: 0.00-0.40 Bilirubin, Total <0.2 mg/dL (Normal) Range: 0.0-1.2 Albumin, Serum 4.2 g/dL (Normal) Range: 3.6-4.8 Protein, Total, Serum 6.8 g/dL (Normal) Range: 6.0-8.5 :53 NZGTF-SWVSGQRUKDI-GADLO (78685) Comments: PATIENT NOT FASTINGPERFORMED BY: CB [facility] Pqnoap6454 [address] RoadDublin [place] [id number] AFP, Serum, Tumor Marker 2.6 ng/mL (Normal) Range: 0.0-8.3 Comments: Rosmery ECLIA methodology :53 ALKALINE PHOSPHATASE-ISOENZYM Comments: PATIENT NOT FASTINGPERFORMED BY: CB [facility] Phenre7898 [address]ana RoadDublin [place] [id number] (25464) Intestinal Frac.: 5 % (Normal) Range: 0-18 Bone Fraction: 24 % (Normal) Range: 14-68 Liver Fraction: 71 % (Normal) Range: 18-85 26-Mic-386039:11 ALKALINE PHOSPHATASE-ISOENZYM Comments: PATIENT NOT FASTINGPERFORMED BY: CB [facility] Anenpc8113 [address] RoadDublin [place] [id number] (30036) Intestinal Frac.: 3 % (Normal) Range: 0-18 Bone Fraction: 19 % (Normal) Range: 14-68 Liver Fraction: 78 % (Normal) Range: 18-85 Alkaline Phosphatase, S 122 [iU]/L (Abnormal) Range: 39-117 :11 CALCIFEDIOL (67249) Comments: PATIENT NOT FASTINGPERFORMED BY: CB [facility] Fsnjrg1780 [address] RoadDublin [place] [id number] Vitamin D, 25-Hydroxy 37.5 ng/mL (Normal) Range: 30.0-100.0 Comments: Vitamin D deficiency has been defined by the Mcdaniels ofMedicine and an Endocrine Society practice guideline as alevel of serum 25-OH vitamin D less than 20 ng/mL (1,2).The Endocrine Society went on to further define vitamin Dinsufficiency as a level between 21 and 29 ng/mL (2).1. IOM (Mcdaniels of Medicine). 2010. Dietary reference intakes for calcium and D. [place]: The National Academies Press.2. Jacinto MF, Eddy NC, Quintin JAVED, et al. Evaluation, treatment, and prevention of vitamin D deficiency: an Endocrine Society clinical practice guideline. JCEM. 2010; 96(7):1911-30. :11 TSH (13404) Comments: PATIENT NOT FASTINGPERFORMED BY: [facility] Yginzd6955 [address] RoadDublin [place] [id number] TSH 1.620 {uIU/mL} (Normal) Range: 0.450-4.500 :11 T4, FREE (THYROXINE) (19521) Comments: PATIENT NOT FASTINGPERFORMED BY: [facility] Dqtlzh9882 [address] RoadDublin [place] [id number] T4,Free(Direct) 1.00 ng/dL (Normal) Range: 0.82-1.77 :11 T3, FREE (TRIDOTHYRONINE) (34657) Comments: PATIENT NOT FASTINGPERFORMED BY: [facility] Nyjfvv[address] [facility]bl[facility] [place] [id number] Triiodothyronine,Free,Serum 2.5 pg/mL (Normal) Range: 2.0-4.4 :08 HgA1C , Office (41356) HgA1C , Office 7.4 % (Abnormal) Range: 4.6 - 7.1 :08 Blood Glucose , Office (53767) Blood Glucose , Office 190 (Normal) 9-Ywy-603668:30 Lipid Profile Comments: Order Date: 12/12/16Order Info: [id number] - *Hepatic Function PanelOrder Info: [id number] - *Lipid Profile CC PCPComments: 12 hours fasting, may have water.Comments: 6 months / [facility] Ymicozcxcj86[address] [place], [address] VLDL 46 mg/dL (Abnormal) Range: 5-40 LDL [...] 200-240 mg/dL Borderline >240 mg/dL High Risk 0-Vkf-026445:30 Liver Profile Comments: Order Date: 12/12/16Order Info: [id number] - *Hepatic Function PanelOrder Info: [id number] - *Lipid Profile CC PCPComments: 12 hours fasting, may have water.Comments: 6 months / pre [facility]WM[facility] Ttrclvyitp5255 [facility] [place], [address] D BILI 0.11 mg/dL (Normal) Range: 0.00-0.30 [...] FASTINGPERFORMED BY: LabCoRobert Wood Johnson University Hospital SomersetNhgujn1505 [facility] [id number] HORMONE) (41444) TSH 0.728 {uIU/mL} (Normal) Range: 0.450-4.500 :55 HgA1C , Office (35333) HgA1C , Office 6.9 % (Normal) Range: 4.6 - 7.1 :55 Blood Glucose , Office (37165) Blood Glucose , Office 143 (Normal) 41-Yju-249665:11 Microscopic Examination Comments: PATIENT WAS FASTINGPERFORMED BY: [employer] Drync [facility] [id number] Bacteria Few (Normal) Mucus Threads Present (Normal) Cast Type Hyaline casts (Normal) Casts Present {/lpf} (Abnormal) Epithelial Cells (non renal) 0-10 {/hpf} (Normal) Range: 0 - 10 RBC 0-2 {/hpf} (Normal) Range: 0 - 2 WBC 6-10 {/hpf} (Abnormal) Range: 0 - 5 85-Xha-180597:11 URINALYSIS, W/ MICRO (46425) Comments: January 2017; PATIENT WAS FASTINGPERFORMED BY: Traction [facility] [id number] Microscopic Examination See below: (Normal) Comments: Microscopic was indicated and was performed. Nitrite, Urine Negative (Normal) Urobilinogen,Semi-Qn 0.2 mg/dL (Normal) Range: 0.2-1.0 Bilirubin Negative (Normal) Occult Blood Negative (Normal) Ketones Negative (Normal) Glucose Trace (Abnormal) Protein 1+ (Abnormal) WBC Esterase 1+ (Abnormal) Appearance Clear (Normal) Urine-Color Yellow (Normal) pH 6.5 (Normal) Range: 5.0-7.5 Specific [place] 1.016 (Normal) Range: 1.005-1.030 82-Xwk-056909:11 MICROALBUMIN: CREATININE RATIO Comments: January 2017; PATIENT WAS FASTINGPERFORMED BY: [employer] [facility]nc [facility] [id number] (82822) AND (70446) Microalb/Creat Ratio 208.2 {mg/g_creat} (Abnormal) Range: 0.0-30.0 Microalbumin, Urine 182.2 ug/mL (Normal) Creatinine, Urine 87.5 mg/dL (Normal) 20-Crf-233351:11 CBC, Platelets & Auto Diff Comments: January 2017; PATIENT WAS FASTINGPERFORMED BY: [employer] Drync [facility] [id number] (53123) Immature Grans (Abs) 0.0 {x10E3/uL} (Normal) Range: [...] 3.77-5.28 WBC 5.6 {x10E3/uL} (Normal) Range: 3.4-10.8 66-Yyo-264742:11 Metabolic Panel, Comprehensive Comments: January 2017; PATIENT WAS FASTINGPERFORMED BY: LabCoRobert Wood Johnson University Hospital SomersetLotumb5469 [facility] [id number] (99568) ALT (SGPT) 13 [iU]/L (Normal) Range: 0-32 [...] Glucose, Serum 120 mg/dL (Abnormal) Range: 65-99 35-Upc-191455:11 TSH (THYROID STIMULATING Comments: January 2017; PATIENT WAS FASTINGPERFORMED BY: [facility] Fzrwom6477 [facility] [id number] HORMONE) (97200) TSH 0.982 {uIU/mL} (Normal) Range: 0.450-4.500 4-Fce-200873:02 Lipid Profile Comments: Order Date: 12/04/16Order Info: [id number] - *Hepatic Function PanelOrder Date: 12/04/16Order Info: [id number] - *Lipid Profile CC PCPComments: 12 hours fasting, may have water.[facility] [place], [address] VLDL 36 mg/dL (Normal) Range: [...] 200-240 mg/dL Borderline >240 mg/dL High Risk 8-Cag-149741:02 Liver Profile Comments: Order Date: 12/04/16Order Info: [id number] - *Hepatic Function PanelOrder Date: 12/04/16Order Info: [id number] - *Lipid Profile CC PCPComments: 12 hours fasting, may have water.[address] [place], [place], [address] D BILI 0.07 mg/dL (Normal) Range: 0.00-0.30 T BILI 0.30 mg/dL (Normal) Range: 0.20-1.00 ALT 21 U/L (Normal) Range: 12-78 ALK P 112 U/L (Normal) Range: 45-117 AST 19 U/L (Normal) Range: 15-37 GLOB 3.8 g/dL (Abnormal) Range: 2.3-3.5 ALB 3.4 g/dL (Normal) Range: 3.4-5.0 T PROT 7.2 g/dL (Normal) Range: 6.4-8.2 97-Uir-537055:29 URINE RANDELL CULTURE-ZEINAB COL Comments: PATIENT NOT FASTINGPERFORMED BY: [facility] Mzmpvz1651 [facility] [id number] Information: SRC:UC COUNT (23082) Result 1 MUG (Normal) Comments: Mixed urogenital flora25,000-50,000 colony forming units per mL Urine Final report (Normal) Culture,Comprehensive 00-Wmq-478217:53 Urinalysis, Office (00650) UA - LEUKOCYTE ESTERASE Small (Normal) UA - NITRITE Negative (Normal) URINE UROBILINGN ZEINAB TIMED Normal mg/dL (Normal) UA - PROTEIN Negative mg/dL (Normal) UA - PH 7 (Normal) UA - BLOOD Negative (Normal) UA - SPECIFIC GRAVITY 1.020 (Normal) UA - KETONES Negative mg/dL (Normal) UA - BILIRUBIN Small (Normal) UA - GLUCOSE Negative (Normal) 98-Bpl-647717:51 Blood Glucose , Office (72741) Comments: 169 Blood Glucose , Office 169 (Normal) 66-Jvj-503476:52 HgA1C , Office (79343) Comments: 7.0 HgA1C , Office 7.0 % (Normal) Range: 4.6 - 7.1 :22 URINE RANDELL CULTURE-IDENTIFICATN Comments: PATIENT NOT FASTINGPERFORMED BY: [employer] Dry[facility] [id number] Information: SRC:UC (98291) Result 1 MUG (Normal) Comments: Mixed urogenital flora10,000-25,000 colony forming units per mL Urine Final report (Normal) Culture,Comprehensive 80-Btd-451227:05 Urinalysis, Office (92790) UA - LEUKOCYTE ESTERASE Negative (Normal) UA - NITRITE Negative (Normal) URINE UROBILINGN ZEINAB TIMED Normal mg/dL (Normal) UA - PROTEIN 30 mg/dL (Normal) UA - PH 6 (Abnormal) UA - BLOOD non-hemolyzed trace (Normal) UA - SPECIFIC GRAVITY 1.020 (Normal) UA - KETONES Negative mg/dL (Normal) UA - BILIRUBIN Negative (Normal) UA - GLUCOSE 100 (Abnormal) 7-Urc-725185:42 HgA1C , Office (30667) HgA1C , Office 6.2 % (Normal) Range: 4.6 - 7.1 :42 Blood Glucose , Office (31227) Blood Glucose , Office 137 (Normal) 1-Ppj-201732:01 TSH (THYROID STIMULATING Comments: PATIENT NOT FASTINGPERFORMED BY: [employer] Cblmgd5290 [facility] [id number] HORMONE) (85800) TSH 1.820 {uIU/mL} (Normal) Range: 0.450-4.500 2-Red-917186:03 HEPATIC FUNCTION PANEL Comments: PATIENT NOT FASTINGPERFORMED BY: [employer] [facility] [id number] (84075) ALT (SGPT) 15 [iU]/L (Normal) Range: 0-32 AST (SGOT) 23 [iU]/L (Normal) Range: 0-40 Alkaline Phosphatase, S 95 [iU]/L (Normal) Range: 39-117 Bilirubin, Direct 0.12 mg/dL (Normal) Range: 0.00-0.40 Bilirubin, Total 0.3 mg/dL (Normal) Range: 0.0-1.2 Albumin, Serum 4.3 g/dL (Normal) Range: 3.6-4.8 Protein, Total, Serum 7.3 g/dL (Normal) Range: 6.0-8.5 :03 JEMSV-HVUVRFTXYJQ-DHSOE (29992) Comments: PATIENT NOT FASTINGPERFORMED BY: RigUpFormerly [facility]6370 [facility] [id number] AFP, Serum, Tumor Marker 2.8 ng/mL (Normal) Range: 0.0-8.3 Comments: Rosmery ECLIA methodology :03 HEPATITIS PANEL (15791) Comments: PATIENT NOT FASTINGPERFORMED BY: Laser Light EnginesRobert Wood Johnson University Hospital SomersetNuepnu0516 [facility] [id number] Hep C Virus Ab <0.1 {s/co_ratio} (Normal) Range: 0.0-0.9 Comments: Negative: < 0.8 Indeterminate: 0.8 - 0.9 Positive: > 0.9 . The CDC recommends that a positive HCV antibody result be followed up with a HCV Nucleic Acid Amplification test (463686). Hep B Core Ab, IgM Negative (Normal) HBsAg Screen Negative (Normal) Hep A Ab, IgM Negative (Normal) :58 CBC W/Diff, Automated Comments: CBCD FOR DR Ferreiraisma [facility] Faaeouwdqx[address] [place], [place], [address] Absolute Lymph 1.84 {X10_3/ul} (Normal) Range: 0.83-4.51 [...] Comments: Order Date: 05/14/16Interface Comments: Reason:Order Date: 05/14/16[facility] Cxdtkdbsir[address] [place], [address] T4 THYROXIN 11.6 ug/dL (Normal) Range: 4.8-13.9 :58 Thyroid Stim Hormone (TSH) Comments: Order Date: 05/14/16Interface Comments: Reason:Order Date: 05/14/16[facility] Eksjluf[address] [place], [address] TSH 1.96 {uIU/mL} (Normal) Range: 0.358-3.74 7-Acp-225230:11 Urinalysis, Office (21106) UA - LEUKOCYTE ESTERASE Small (Normal) UA - NITRITE Negative (Normal) URINE UROBILINGN ZEINAB TIMED Normal mg/dL (Normal) UA - PROTEIN 30 mg/dL (Normal) UA - PH 6 (Abnormal) UA - BLOOD Negative (Normal) UA - SPECIFIC GRAVITY 1.010 (Normal) UA - KETONES Negative mg/dL (Normal) UA - BILIRUBIN Negative (Normal) UA - GLUCOSE Negative (Normal) 04-Rsb-400592:50 Basic Metabolic Profile (BMP) Comments: [facility] [address]ynhnhy[address] [place], [address] GAP 7 (Normal) Range: 5-15 CO2 33.0 [...] 100 mg/dL (Normal) Range: 70-110 :48 MAGNESIUM (29104) Comments: PATIENT NOT FASTINGPERFORMED BY: [employer].Co70 [facility] [id number] Magnesium, Serum 1.6 mg/dL (Normal) Range: 1.6-2.3 :48 TSH (THYROID STIMULATING Comments: PATIENT NOT FASTINGPERFORMED BY: [employer] [facility] [id number] HORMONE) (78827) TSH 6.340 {uIU/mL} (Abnormal) Range: 0.450-4.500 :48 URIC ACID BLOOD (07731) Comments: PATIENT NOT FASTINGPERFORMED BY: [employer] [facility] [id number] Uric Acid, Serum 6.1 mg/dL (Normal) Range: 2.5-7.1 Comments: Therapeutic target for gout patients: <6.0 :09 Blood Glucose , Office (33256) Blood Glucose , Office 116 (Normal) : HgA1C , Office (70164) HgA1C , Office 6.7 % (Normal) Range: 4.6 - 7.1 70-Dwx-965422:19 Basic Metabolic Profile (BMP) Comments: Order Date: 03/12/16 Order #: [id number] Hospital Mkhnmgrtyd[address] [place], [place], [address] GAP 7 (Normal) Range: 5-15 CO2 29.0 [...] 7-18 GLU 107 mg/dL (Normal) Range: 70-110 42-Iup-074003:19 T4 Total, Thyroxin Comments: Order Date: 03/12/16 Order #: [id number] Hospital Huwrmgytdr[address] [place], [place], [address] T4 THYROXIN 9.4 ug/dL (Normal) Range: 4.8-13.9 29-Cav-947020:19 Thyroid Stim Hormone (TSH) Comments: Order Date: 03/12/16 Order #: [id number] Hospital Gvyaxytxtb4[address] [place], [place], [address] TSH 5.44 {uIU/mL} (Abnormal) Range: 0.358-3.74 17-Fnp-438701:49 Aerobic Bacterial Culture Comments: PATIENT NOT FASTINGPERFORMED BY: LabCoKayla Ville 9559470 [facility] [id number] Information: RT AXILLA Result 1 MRSA (Abnormal) [...] Negative (Normal) Comments: PATIENT NOT FASTINGPERFORMED BY: LabCo[address] [id number] Information: NASAL 5:49 Culture 59-Wll-770145:20 Basic Metabolic Profile (BMP) Comments: [facility] Huyughmrpg[address] [place], [place], [address] GAP 7 (Normal) Range: 5-15 CO2 29.0 [...] A.D.A. criteria. :02 Blood Glucose , Office (06112) Blood Glucose , Office 137 (Normal) :54 Urine Drug Screen (Office - WNL (Normal) Comments: pos for oxy, all else neg Urine Drug Screen 6 Panel) Comments: All negative except Oxy (44780) :52 HgA1C , Office (10344) Comments: 7.3 HgA1C , Office 7.3 % (Abnormal) Range: 4.6 - 7.1 :43 Basic Metabolic Profile (BMP) Comments: DR URBINA ORDERED BMPDR MALCOLM ORDERED LIVER LIPIDMarymount Hospital Dmwfmzipoz3912 [facility] [place], [address] GAP 3 (Abnormal) Range: 5-15 CO2 33.0 mmol/L (Abnormal) Range: 21.0-32.0 CL 102 mmol/L (Normal) Range: 98-107 K 3.4 mmol/L (Abnormal) Range: 3.5-5.1 Comments: ADDENDA: Denisse at [facility] aware of potassium level NA 138 mmol/L [...] 7-18 GLU 101 mg/dL (Normal) Range: 70-110 7-Ewy-574495:43 Lipid Profile Comments: DR URBINA ORDERED BMPDR MOODISPAW ORDERED LIVER LIPIDWProMedica [facility] Zbwvctbfce8[address] [place], [address] VLDL 26 mg/dL (Normal) Range: [...] 200-240 mg/dL Borderline >240 mg/dL High Risk 4-Hlj-633797:43 Liver Profile Comments: DR URBINA ORDERED BMPDR MOODISPAW ORDERED LIVER LIPIDWProMedica Defiance Regional Hospital Psykbtxfrk60[address] [place], [address] D BILI 0.14 mg/dL (Normal) Range: 0.00-0.30 T BILI 0.40 mg/dL (Normal) Range: 0.20-1.00 ALT 16 U/L (Normal) Range: 12-78 ALK P 112 U/L (Normal) Range: 50-136 AST 19 U/L (Normal) Range: 15-37 GLOB 3.9 g/dL (Abnormal) Range: 2.3-3.5 ALB 3.0 g/dL (Abnormal) Range: 3.4-5.0 T PROT 6.9 g/dL (Normal) Range: 6.4-8.2 1-Gbo-054594:02 Blood Glucose , Office (67948) Blood Glucose , Office 160 (Normal) 58-Zgv-871407:37 HgA1C , Office (15002) Comments: 7.2 HgA1C , Office 7.2 % (Abnormal) Range: 4.6 - 7.1 95-Oby-551808:24 MRSA Culture (23205) Comments: [facility] Wqtgfpkajq16[address] [place], [address] MRSA RESULT Negative (Normal) 0-Mxo-744290:59 Metabolic Panel, Basic Comments: send to Dr.Masroor Urbina; PATIENT NOT FASTINGPERFORMED BY: [facility] Tkhkky8904 [facility] [id number] Information: [id number] (56365) Calcium, Serum 10.7 mg/dL (Abnormal) Range: 8.7-10.3 [...] Glucose, Serum 182 mg/dL (Abnormal) Range: 65-99 3-Qil-454258:09 MRSA Culture (73740) Comments: [facility] [address]lms[address] [place], [address] MRSA RESULT POSITIVE (Abnormal) 03-Byb-44927:39 Lipid Profile Comments: [facility] [address]fahas[address] [place], [address] VLDL 23 mg/dL (Normal) Range: [...] mg/dL High Risk :39 Liver Profile Comments: [facility] [address]jecg[address] [facility] [address] [place], [place], [address] ; non-emergent and handled by cardio D BILI 0.14 mg/dL (Normal) Range: 0.00-0.30 T BILI 0.50 mg/dL (Normal) Range: 0.20-1.00 ALT 38 U/L (Normal) Range: 12-78 ALK P 79 U/L (Normal) Range: 50-136 AST 47 U/L (Abnormal) Range: 15-37 GLOB 4.3 g/dL (Abnormal) Range: 2.3-3.5 ALB 3.5 g/dL (Normal) Range: 3.4-5.0 T PROT 7.8 g/dL (Normal) Range: 6.4-8.2 :39 T4 Total, Thyroxin Comments: [facility] [address]petqbjg[address] [facility] [place], [address] T4 THYROXIN 10.9 ug/dL (Normal) Range: 4.8-13.9 :39 Thyroid Stim Hormone (TSH) Comments: [facility] [address]rfwmw[address] [facility] [place], [address] TSH 3.63 {uIU/mL} (Normal) Range: 0.358-3.74 4-Gbh-641058:13 LIPID PANEL (71484) Comments: PATIENT WAS FASTINGPERFORMED BY: [facility] Fwvhgj3652 [facility] [id number] LDL/HDL Ratio 1.2 {ratio_units} (Normal) Range: 0.0-3.2 [...] Cholesterol, Total 160 mg/dL (Normal) Range: 100-199 2-Yqc-609367:13 CBC W/AUTO DIFF WBC Comments: PATIENT WAS FASTINGPERFORMED BY: [facility]6370 [facility] [id number] Information: [id number] (27305) Immature Grans (Abs) 0.0 {x10E3/uL} (Normal) Range: [...] 3.77-5.28 WBC 4.5 {x10E3/uL} (Normal) Range: 3.4-10.8 8-Zeb-198290:13 METABOLIC PANEL, COMPREHENSIVE Comments: PATIENT WAS FASTINGPERFORMED BY: [facility]6370 [facility] [id number] (94560) ALT (SGPT) 8 [iU]/L (Normal) Range: 0-32 [...] Glucose, Serum 109 mg/dL (Abnormal) Range: 65-99 8-Yff-260634:15 Basic Metabolic Profile (BMP) Comments: [facility] [address]rmrlxf[address] [place], [address] GAP 7 (Normal) Range: 5-15 CO2 30.0 [...] 200 mg/dLsuggests DIABETES MELLITUS per A.D.A. criteria. 5-Ujr-731972:15 CBC W/Diff, Automated Comments: [facility] T[address]kmmebm[address] [place], [place], [address] Absolute Lymph 0.95 {X10_3/ul} (Normal) Range: 0.83-4.51 [...] K/mm3 (Normal) Range: 4.4-11.0 :31 LIPID PANEL (67838) Comments: PATIENT WAS FASTINGPERFORMED BY: LabFormerly [facility]6370 [facility] [id number]; non-emergent till apt LDL/HDL Ratio 1.6 {ratio_units} [...] FASTINGPERFORMED BY: LabCoRobert Wood Johnson [facility] Hospital SomersetIvredo3346 [facility] [id number] Information: [id number] (31708) Immature Grans (Abs) 0.0 {x10E3/uL} (Normal) Range: [...] CREATININE RATIO Comments: PATIENT WAS FASTINGPERFORMED BY: Laser Light EnginesRobert Wood Johnson University Hospital SomersetWmlrrg2478 [facility] [id number] (12072) AND (71101) Microalb/Creat Ratio 93.7 {mg/g_creat} (Abnormal) Range: 0.0-30.0 Microalbumin, Urine 196.4 ug/mL (Abnormal) Range: 0.0-17.0 Creatinine, Urine 209.7 mg/dL (Normal) Range: 15.0-278.0 :31 METABOLIC PANEL, COMPREHENSIVE Comments: PATIENT WAS FASTINGPERFORMED BY: Laser Light EnginesRobert Wood Johnson University Hospital SomersetTozamy0720 [facility] [id number] (16809) ALT (SGPT) 20 [iU]/L (Normal) Range: 0-32 [...] Glucose, Serum 120 mg/dL (Abnormal) Range: 65-99 72-Jcr-084292:31 Hemoglobin Glyclated (HGB A1C) Comments: PATIENT WAS FASTINGPERFORMED BY: LabCoRobert Wood Johnson University Hospital SomersetHqmhsz2171 [facility] [id number] (25851) Hemoglobin A1c 7.6 % (Abnormal) Range: 4.8-5.6 Comments: . Pre-diabetes: 5.7 - 6.4 Diabetes: >6.4 Glycemic control for adults with diabetes: <7.0 78-Wyf-921140:30 Urinalysis, Complete Comments: Order Date: 07/18/15How was Urine Obtained? [facility] Yektvyzjqv[address] [place], [place], [address] MUCUS, URINE 0 SEEN {/hpf} (Normal) BACTERIA [...] (Abnormal) CLARITY Clear (Normal) COLOR Yellow (Normal) 31-Gfa-466464:43 CBC W/Diff, Automated Comments: [facility] [address]ekzsczw[address] [place], [place], [address] PATH REV May foll (Normal) SMEAR COMMENT [...] Range: 4.4-11.0 :43 Comprehensive Metabolic Profil Comments: [facility] [address]ufsquht[address] [place], [place], [address] GAP 8 (Normal) Range: 5-15 CO2 33.0 [...] Comments: To be drawn 6H after initial specimenWProMedica Defiance Regional Hospital Jmasegqfnp30[address] [place], [place], [address] LACTIC ACID 1.7 mmol/L (Normal) Range: 0.4-2.0 87-Jph-196315:43 Magnesium Comments: [facility] Gumjoimkka[address] [place], [address] MG 1.3 mg/dL (Abnormal) Range: 1.8-2.4 82-Apn-384982:43 Partial Thromboplast Time Comments: [facility] [address] [place], [id number] PTT 31.4 s (Normal) Range: 24.1-36.2 20-Tjj-348188:43 Phosphorus Comments: [facility] [id number] [place], [id number] PHOS 1.0 mg/dL (Abnormal) Range: 2.5-4.9 Comments: Critical Result(s) Called at: 17:06:16 07/18/2015 by:Stacey ibarra rn 84-Ktp-484179:43 Prothrombin Time w/INR Comments: [facility] [address] [place], [place], [id number] INR 0.9 (Normal) PROTIME 12.8 s (Normal) [...] with abnormal findings in adult : Reviewed [employer] Letter Indication: Encounter for annual general medical [...] DF then follow up q 3 months [facility] Indication: Constipation Hypertensive heart disease without [...] type 2, insulin dependent Planned Observations PARATHORMONE (85008)Indication: Hypercalcemia On: 49-Oti-530276:05 Request CBC, Platelets & Auto Diff ([id number])Indication: History of sarcoidosis On: 13-Ohj-827734:54 Request Metabolic Panel, Comprehensive ([id number])Indication: History of sarcoidosis On: 61-Nmx-398103:54 Request URINE CALCIUM ZEINAB TIMED ([id number])Indication: History of sarcoidosis On: 40-Afo-250315:53 Request Cologuard - Strool Based DNA Test, CRC SCREEN ([id number])Indication: Encounter for screening for malignant neoplasm of colon (Renamed from Special screening for malignant neoplasms, colon) On: 61-Wvs-657694:05 Request FECAL OCCULT- Tubes sent home (24620)Indication: Encounter for screening for malignant neoplasm of colon (Renamed from Special screening for malignant neoplasms, colon) On: 91-Nmx-157245:09 Request Lipid Panel (24034)Indication: Diabetes mellitus type 2, insulin dependent On: 22-Txv-593247:08 Request Comments: around January Metabolic Panel, Comprehensive (50844)Indication: Diabetes mellitus type 2, insulin dependent On: 53-Jvg-028615:08 Request Comments: around January CBC, Platelets & Auto Diff (11750)Indication: Diabetes mellitus type 2, insulin dependent On: 38-Flb-580408:08 Request Comments: around January TSH (16896)Indication: Diabetes mellitus type 2, insulin dependent On: 03-Sqc-832205:08 Request Comments: around January Rapid Flu (24530 x 2)Indication: Unspecified Diagnosis On: 66-Pbe-83795:33 Request CBC & PLATELETS (AUTO) (79612)Indication: Abdominal pain On: 4-Emw-131453:57 Request CULTURE, NOSE (06780)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 On: :31 Request Comments: check for MRSA MRSA Culture ([id number])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 On: :23 Request Comments: rt axila HgA1C , Office (92273)Indication: Diabetes mellitus type 2, insulin dependent On: 38-Zvv-168601:21 Request Urinalysis, Office (31499)Indication: History of MRSA infection On: 13-Lly-189750:42 Request Hemoglobin Glyclated (HGB A1C) (60583)Indication: Diabetes mellitus type 2, uncontrolled On: 32-Lec-349746:46 Request MICROALBUMIN: CREATININE RATIO (48241) AND (20400)Indication: Hypertensive heart disease without heart failure On: :46 Request Planned Encounters Medical; 3 Month FU - On: 28-Oct-2018 13:45 [facility] Elsa Chopra CNP, CNP, Mary E Planned Procedures Overnight Pulse OX (69249)By: On: 30-Jun-2018 Intent Lee Ann Schafer DO SPIROMETRY PERFORMED ([id number])By: On: 25-Jun-2018 Intent Visit, Nurse SPIROMETRY PERFORMED ([id number])By: On: 25-Jun-2018 Intent Visit, Nurse SIX MINUTE WALK TEST ([id number])By: On: 25-Jun-2018 Intent Visit, Nurse Flu Vaccine (Quadrivalent) [id number]: On: 20-May-2018 Intent Karly Chandra DEXA SCAN AXIAL SKELETON (46598)By: On: 18-Dec-2017 Intent Elsa Chopra CNP, CNP, Mary E SCREENING DIGITAL TOMOSYNTHESIS OF On: 18-Dec-2017 Intent BREAST ([id number])By: Elsa Chopra CNP, CNP, Mary E Flu Vaccine (Quadrivalent) [id number]: On: 11-Jun-2017 Intent Elsa Chopra CNP, CNP, Mary E Comments: InfluenzaLot #[id number]-L dltd, IMDose prefilled syringeVIS and ABN signedgiven by:GENARO blackwood PHYSICAL THERAPY TREATMENT On: 11-Dec-2016 Intent ([id number])By: Adelita Doshi LPN PHYSICAL THERAPY EVALUATION On: 11-Dec-2016 Intent ([id number])By: Elsa Chopra CNP, CNP, Mary E Toradol Injection, 30 mg On: 10-Dec-2016 Intent ([id number])By: Elsa Chopra CNP, CNP, Mary E Radiology - Hip - RightBy: Nav On: 10-Dec-2016 Intent Elsa MCKINLEY CNP, Mary E Aerosol Treatment (52990)By: Fredarb On: 16-Oct-2016 Intent Adelita LAM Flu Vaccine (Quadrivalent) [id number]: On: 11-Jul-2016 Intent Elsa Chopra CNP, CNP, Mary E Comments: FLUlot: [id number]:01/16site:Lt deltoidroute:IMdose:.5mlDECLAUDETTEKBHAVNA Ultrasound - Abdomen CompleteBy: On: 03-Jul-2016 Intent Elsa Chopra CNP, CNP, Mary E Radiology - KUBBy: Elsa Chopra CNP On: 03-Jul-2016 Intent Elsa العلي CNP DRAIN/INJECT SMALL JOINT OR BURSA On: 18-May-2016 Intent ([id number])By: Elsa Chopra CNP Comments: to left wrist joint 1/2 cc kenalog, 1/2 cc marcaine. Kenalog lot [id number] exp Marcain lot [id number] ex Elsa MCKINLEY MAMMOGRAM, SCREENING, BOTH BREAST On: 11-May-2016 Intent (24427)By: Elsa Chopra CNP, CNP, Mary E Radiology [...] mellitus without complication) : DISCONTINUED - URINALYSIS (53595) Indication: Diabetes mellitus type II, controlled, with no complications (Renamed from Controlled type 2 diabetes mellitus without complication) CKD (chronic kidney disease), stage III : DISCONTINUED - MICROALBUMIN: CREATININE RATIO (85181) AND (12639) Indication: CKD (chronic kidney disease), stage III Diabetes mellitus type II, controlled, with no complications (Renamed from Controlled type 2 diabetes mellitus without complication) : DISCONTINUED - CBC, PLATELETS & AUT DIFF ([id number]) Indication: Diabetes mellitus type II, controlled, with no complications (Renamed from Controlled type 2 diabetes mellitus without complication) Diabetes mellitus type II, controlled, with no complications (Renamed from Controlled type 2 diabetes mellitus without complication) : DISCONTINUED - METABOLIC PANEL, COMPREHENSIVE (65571) Indication: Diabetes mellitus type II, controlled, with no complications (Renamed from Controlled type 2 diabetes mellitus without complication) Diabetes mellitus type II, controlled, with no complications (Renamed from Controlled type 2 diabetes mellitus without complication) : DISCONTINUED - TSH (89702) Indication: Diabetes mellitus type II, controlled, with [...] dependent : DISCONTINUED - METABOLIC PANEL, BASIC ([id number]) Indication: Diabetes mellitus type 2, insulin dependent [...] 2, insulin dependent Encounters Office Visit On: 28-Jul-2018 13:24 Encounter Reason: [...] patient does not have durable power of manager assessment or living will. The patient has noticed getting bored, poor spirits most of time and lack of energy. Other providers contributing to the lyndsey bolton's care are lead bi developer () and urologist (). Note for Annual [...] and is sleeping poorly. Patient has been [facility] [place] [employer] End: 18-Sep-2017 13:50 pliant with instructions. Current [...] and is sleeping poorly. Patient has been [place] [employer] End: 11-Jun-2017 14:46 pliant with instructions. Current [...] - Reason for ER visit: note: (surgery [facility]. ). The patient feels well [...] MRSA. She has had pre-op testing at [facility] on 10-14-2015, for Lumbar microdecompression for 10-24-[address] Dahl for papers to be signed [...] abdominal pain (right sided groin area End: -Jul-2015 22:21 - sharp pain- went to [facility] ER). 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
--- OUTSIDE RECORDS SUMMARY | 2018-09-25 14:38 | XMS RPT_ITS | Continuity of Care Document ---
:1950 Author Organization [facility] Address [address] [facility] [address] [place] [address] Phone Care Team Providers Name Role Phone Nav ARLENElsa Unavailable Malcolm STANLEY, Casey Florian Unavailable Linden DO , Dr. Aaron Diaz Unavailable John BatistaAnnalisa Unavailable Dr. Abimael Ag Unavailable Kirby STANLEY, Jared Galeano Unavailable Pascale Boston Unavailable Slarb INTERVENTIONIST, Adelita Unavailable Unavailable Long INTERVENTIONIST, Dora L Unavailable Unavailable Karly Chandra Unavailable [...] 585.3) Comments: follows with Dr. Munguia in [place], seen for sarcoidosis currently, stableGFR 42 Status: [...] on wean of steroid Scale 201-250. 5 ioqqt768-097 8 yykml289-565 10 -165 12 units>401 15 unitsad ding metformin not [...] given in L arm subcutaneously paitent tolerated wellLOT#[id number]#2020 NOV 06 Status: Active Postmenopausal (Renamed from Postmenopausal status) (Z78.0, V49.81) Status: Active Pregnancies () Comments: 1. 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) Comments: Sees Ciara at [facility] for sarcoid in bone marrow [...] MOY Start : 18-Jul-2015 Active VITAMIN D3, 95322TTGB (Oral Capsule) 1 (one) Capsule Capsule once [...] Refills: 0 Ordered:12-Mar-2016 Nav ARLEN, Elsa Reyes BINGO FLOATER, Elsa Luke Start : 12-Mar-2016 End : [...] Quantity: 30 {Tablet} Refills: 0 Ordered:19-Aug-2015 Akhila iMckey Start : 18-Jul-2015 End : 17-Aug-2015 Inactive [...] q12hrs (100 MG) End : 05-Aug-2015 Discontinued Comments:[facility], 2% (External Ointment) 1 (one) [...] : 05-Aug-2015 Discontinued Comments:1,250mg IV q24hrs x 28jnal3,500mg IV q24hrs #14 Allergies and Adverse Reactions [...] Comments: was seeing Dr. Munguia's partner in [place] Dr. Morel, gfr 43%, has proteinuria Status: [...] Visit Report Result: Comments: See Note; NOTES: [facility] [address] [place] [address] OFFICE VISIT Date of Service: 02/17/18 MR#: [id number] Acct: [id number] Name: SHREYAS KATHLEEN Rep #: [id number] : 1950 Provider: Casey Fowler MD Age/Sex: 67/F [place] [facility] [place] Status: Signed HPI HPI Details: SHREYAS KATHLEEN, is a 67 F who presents to the office today for for outpatien t cardiovascular follow-up of her history of underlying CAD, non-ST segment elevation MO, paroxysmal atrial fibrillation, superimposed upon a history [...] PFSH Medical History Atherosclerotic heart disease of [place] coronary artery without angina pectoris (Chronic) History [...] stenosis Assessment AND Plan 1. Atherosclerosis of [place] coronary artery of [place] heart without angina pectoris I25.10 Mild Plan [...] for an outpatient visit in [facility] 9 months unless needed sooner. Thank you for allowing me to participate in the care of your patient. Please don't hesitate to call if any issues arise. This note was generated using a voice Compellon system and there may be incorrect words, spelling or punctuation that were not noted when reviewing the office note prior to saving. Follow Up 9 Months Coding Level of Care Code Off glen rodríguez,kelly l 4 Diagnoses Atherosclerosis of [place] coronary artery of [place] heart without angina pectoris I25.10 Jamul vs. transplanted heart: [place] heart Paroxysmal atrial fibrillation I48.0 Hyperlipidemia, u nspecified hyperlipidemia type E78.5 Hyperlipidemia type: unspecified Essential hypertension I10 Hypertension type: essential hypertension Long-term use of high-risk medication Z79.899 Coding Level of Care Code Off glen rodríguez,level 4 Diagnoses Atherosclerosis of [place] coronary artery of [place] heart without angina pectoris I25.10 Jamul vs. transplanted heart: [place] heart Paroxysmal atrial fibrillat ion I48.0 Hyperlipidemia, unspecified hyperlipidemia type E78.5 Hyperlipidemia type: unspecified Essential hypertension I10 Hypertension type: essential hypertension Long-term use of high-risk medicatio n Z79.899 02/17/18 1530 <Electronically signed by Casey Fowler MD> Date Casey Fowler MD Cosigner Signature: Date _ (if applicable) CC: Elsa Chopra NP 14-Feb-2018 SCREENING MAMM (CAD), BILAT Result: Comments: See Note; NOTES: [facility] Imaging Services [address] [place] [address] SCREENING MAMM (CAD), BILAT MR#: [id number] Acct: [id number] Name: SHREYAS KATHLEEN Rep #: [id number] : 1950 F 67 From: Elias Finn MD PCP: Elsa Chopra NP Status: REG CLI Study: SCREENING MAMM (CAD), BILAT Date of Exam: 02/14/18 Exam# [id number] Ordering Dr: Elsa Chopra MAMMO GRAPHY - [...] [facility]. Approximately 10% of breast cancers are not detected by mammography. A normal mammogram should not delay biopsy of a clinically suspicious abnormality. [id number] Elect ronically Signed: Elias Finn MD at 8:30 EDT Tel [phone], Service support , CC: Elsa Chopra NP Compensation Adjuster: Signed 21-Jan-2018 Dexa Bone Density Study Result: Comments: See Note; NOTES: [facility] Imaging Services [address] [place] [address] Dexa Bone Density Study MR#: [id number] Acct: [id number] Name: SHREYAS KATHLEEN Rep #: [id number] : 1950 F 67 From: Elias Finn MD PCP: Elsa Chopra NP Status: REG CLI Study: Dexa Bone Density Study Date of Exam: 01/21/18 Exam# [id number] Ordering Dr: Elsa Chopra STUDY: DUAL E [...] Elias Finn MD at 15:36 EDT Tel [phone], Service support , CC: Elsa Chopra NP Compensation Adjuster: Signed 10-Dec-2016 Hip 2-3 Views with Pelvis Result: Comments: See Note; NOTES: [facility] Imaging Services [address] [place] [address] Verdana 4d Hip 2-3 Views with Pelvis MR#: [id number] Acct: [id number] Name: SHREYAS KATHLEEN Keira Rep #: [id number] : 1950 F 66 From: Herve Jimenez MD PCP: Elsa Chopra Status: REG CLI Study: Hip 2-3 Views with Pelvis Date of Exam: 12/10/16 Exam# [id number] Ordering Dr: Elsa Chopra STUDY : X-RAY [...] FACR at 11:31 EDT , Service support [phone], CC: Elsa Chopra Compensation Adjuster: Signed 05-Jul-2016 Abdomen Complete Result: Comments: See Note; NOTES: [facility] Imaging Services [address] [place] [address] Verdana 4d Abdomen Complete MR#: [id number] Acct: [id number] Name: SHREYAS KATHLEEN Keira Rep #: [id number] : 1950 F 66 From: Elias Finn MD PCP: Elsa Chopra Status: REG CLI Study: Abdomen Complete Date of Exam: 07/05/16 Exam# [id number] Ordering Dr: Elsa Chopra STUDY: ABDOMINAL ULTRASOUND [...] Elias Finn MD at 9:35 EDT Tel [phone], Service support [phone], CC: Elsa Chopra Compensation Adjuster: Signed 05-Jul-2016 Abdomen Single View Result: Comments: See Note; NOTES: [facility] Imaging Services [address] [place] [address] Verdana 4d Abdomen Single View MR#: [id number] Acct: [id number] Name: SHREYAS KATHLEEN Rep #: [id number] : 1950 F 66 From: Elias Finn MD PCP: Elsa Chopra Status: REG CLI Study: Abdomen Single View Date of Exam: 07/05/16 Exam# [id number] Ordering Dr: Elsa Chopra STUDY: X-RA Y [...] of the L1 vertebrae. ORDER # : [id number] RAD/Abdomen Single View IMPRESSION: Moderate amount of fecal material is seen in the colon. Electronically Signed: Elias Finn MD at 10:34 EDT Tel [phone], Service sup port [phone], CC: Elsa Chopra Compensation Adjuster: Signed 18-May-2016 Bilat Scrn Digital AND CAD Result: Comments: See Note; NOTES: [facility] Imaging Services [address] [place] [address] Verdana 4d Bilat Scrn Digital AND CAD MR#: [id number] Acct: [id number] Name: JACINTO KATHLEEN Rep #: [id number] : 1950 F 65 From: Elias Finn MD PCP: Elsa Chopra Status: REG CLI Study: Bilat Scrn Digital AND CAD Date of Exam: 05/18/16 Exam# [id number] Ordering Dr: Elsa Chopra MAMMOGRAPHY - BILATERAL [...] biopsy of a clinically suspicious abnor mality. [id number] Electronically Signed: Elias Finn MD at 12:53 EDT Tel [phone], Service support [phone], CC: Elsa Chopra Compensation Adjuster: Signed 14-Feb-2016 Shoulder min 2 Views Result: Comments: See Note; NOTES: [facility] Imaging Services [address] [place] [address] Oscar 4d Shoulder min 2 Views MR#: [id number] Acct: [id number] Name: SHREYAS KATHLEEN Rep #: [id number] : 1950 F 65 From: Herve Jimenez MD PCP: Madeline Florez DO Status: REG CLI Study: Shoulder min 2 Views Date of Exam: 02/14/16 Exam# [id number] Ordering Dr: Pascale Boston DO STUDY: X-RAY [...] FACR at 14:50 EDT , Service support [phone], Fax RAD/Shoulder min 2 Views IMPRESSION: Bilateral of the acromioclavicular joint, otherwise normal x-ray examination of the shoulder. Electronically Signed: Herve Jimenez MD, FACR at 14:50 EDT , Service support [phone], CC: Pascale Boston DO; Madeline Florez DO Compensation Adjuster: Signed 21-Oct-2015 Spirometry (00318) Comments: mod restriction Result: 19-Sep-2015 Chest PA and Lateral Result: Comments: See Note; NOTES: [facility] Imaging Services [address] [place] [address] Verdana 4d Chest PA and Lateral MR#: [id number] Acct: [id number] Name: SHREYAS KATHLEEN Rep #: [id number] : 1950 F 65 From: Elias Finn MD PCP: Madeline Florez DO Status: REG CLI Study: Chest PA and Lateral Date of Exam: 09/19/15 Exam# [id number] Ordering Dr: Madeline Florez DO STUDY: X-RAY [...] Elias Finn MD at 13:58 EST Tel [phone], Service support [phone], RAD/Chest PA and Lateral IMPRESSION: Stable examination. No acute abnormality is seen. Electronically Doris d: Elias Finn MD at 13:58 EST Tel [phone], Service support [phone], CC: Madeline Florez DO Compensation Adjuster: Signed 25-Aug-2015 Spine Lumbar (Routine) Result: Comments: See Note; NOTES: [facility] Imaging Services [address] [place] [address] Verdana 4d Spine Lumbar (Routine) MR#: [id number] Acct: [id number] Name: SHREYAS MAJOR Rep #: [id number] : 1950 F 65 From: Herve Jimenez MD PCP: Madeline Florez DO Status: REG CLI Study: Spine Lumbar (Routine) Date of Exam: 08/25/15 Exam# [id number] Ordering Dr: ELIZABETH DE ELON M.D. STUDY: MRI LUMBAR SPINE WITHOUT CONTRAST [...] FACR at 17:43 EST , Service support [phone], CC: ELIZABETH DE LEON M.D.; Madeline Florez DO Compensation Adjuster: Signed 25-Aug-2015 Spine Thoracic (Routine) Result: Comments: See Note; NOTES: [facility] Imaging Services [address] [place] [address] 4d Spine Thoracic (Routine) MR#: [id number] Acct: [id number] Name: SHREYAS SHARIF Keira Rep #: [id number] : 1950 F 65 From: Herve Jimenez MD PCP: Madeline Florez DO Status: REG CLI Study: Spine Thoracic (Routine) Date of Exam: 08/25/15 Exam# [id number] Ordering Dr: ELIZABETH RUIZ M.D. STUDY: MRI [...] FACR at 17:45 EST , Service support [phone], CC: ELIZABETH DE LEON M.D.; Komal Florez DO Compensation Adjuster: Signed 17-Aug-2015 Chest PA and Lateral Result: Comments: See Note; NOTES: [facility] Imaging Services [address] [place] [address] Verdana 4d Chest PA and Lateral MR#: [id number] Acct: [id number] Name: SHREYAS KATHLEEN Rep #: [id number] : 1950 F 65 From: Elias Finn MD PCP: Madeline Florez DO Status: REG CLI Study: Chest PA and Lateral Date of Exam: 08/17/15 Exam# [id number] Ordering Dr: Madeline Florez DO STUDY: X-RAY [...] Elias Finn MD at 11:09 EST Tel [phone], Service support [phone], Fax RAD/Chest PA and Lateral IMPRESSION: Residual changes persist in the right middle lobe and there has been some improvement. Further followup is recommended. Electr onically Signed: Elias Finn MD at 11:09 EST Tel [phone], Service support [phone], CC: Madeline Florez DO Compensation Adjuster: Signed 12-Aug-2015 Discharge Instruction Result: Comments: See Note; NOTES: [facility] Medical Records Department [address] [place] [address] Discharge Instruction 08/10/15 1702 MR#: [id number] Acct: [id number] Name: SHREYAS KATHLEEN Rep #: [id number] : 1950 65 From: Denny Bone MD [...] problems, contact your doctor. Call [facility] ([phone]) or report to the closest Emergency Room. Call 911 if necessary. 08/12/15 1502 <Elect ronically signed by Denny Bone MD> Date Denny Bone MD Cosigner Signature (If Indicated): Date CC: Madeline Florez DO 12-Aug-2015 Emergency Department Summary Result: Comments: See Note; NOTES: [facility] Medical Records Department [address] [place] [address] Emergency Department Summary MR#: [id number] Acct: [id number] Name: SHREYAS KATHLEEN Rep #: [id number] : 1950 65 From: Denny Bone MD [...] the patient had blood cultures obtained at [facility] and they were called to Dr. Arenas [...] Madeline Bonilla MD T: [facility] JOB: [id number] 08/12/15 1502 <Electronically signed by Denny Bone MD> Date Denny Bone MD Cosigner Signature (If Indicated): Date ___ CC: Madeline Florez DO; Katelyn Arenas MD Date Dictated: 08/10/151708 Date Transcribed: 08/10/151708 Compensation Adjuster: Signed Social History Name Dates Details No [...] kg/m2 Body Surface Area Calculated 1.85 m2 66-Zpr-153771:20 Temperature 97.8 f Comments: Method: Temporal Pulse [...] kg/m2 Body Surface Area Calculated 1.97 m2 33-Xgp-256561:34 BP Systolic 130 mm[Hg] Comments: Patient Position: Sitting BP Diastolic 80 mm[Hg] Comments: Patient Position: Sitting 66-Hoq-454423:03 Temperature 98 f Comments: Method: Temporal Pulse [...] Comments: Jun 19; PATIENT WAS FASTINGPERFORMED BY: Linty FinanceRiverview Medical CenterIujpwj4391 [facility] [id number] (63728) AND (09266) Alb/Creat Ratio 266.9 {mg/g_creat} (Abnormal) Range: 0.0-30.0 Albumin, Urine 168.7 ug/mL (Normal) Creatinine, Urine 63.2 mg/dL (Normal) :00 Metabolic Panel, Comprehensive Comments: Jun 19; PATIENT WAS FASTINGPERFORMED BY: Linty FinanceRiverview Medical CenterIigtzf2504 [facility] [id number] (34388) ALT (SGPT) 14 [iU]/L (Normal) Range: 0-32 [...] 8-27 Glucose 121 mg/dL (Abnormal) Range: 65-99 73-Irq-18597:00 HGB A1C (96894) Comments: June 19; PATIENT WAS FASTINGPERFORMED BY: [facility] [id number] Hemoglobin A1c 7.0 % (Abnormal) Range: 4.8-5.6 Comments: . Prediabetes: 5.7 - 6.4 Diabetes: >6.4 Glycemic control for adults with diabetes: <7.0 03-Nuz-554727:33 ALKALINE PHOSPHATASE-ISOENZYM Comments: PATIENT NOT FASTINGPERFORMED BY: [facility] [id number] (25036) Intestinal Frac.: 0 % (Normal) Range: 0-18 Bone Fraction: 27 % (Normal) Range: 14-68 Liver Fraction: 73 % (Normal) Range: 18-85 Alkaline Phosphatase 89 [iU]/L (Normal) Range: 39-117 00-Hzx-694251:33 CBC, Platelets & Auto Diff Comments: PATIENT NOT FASTINGPERFORMED BY: [facility] [id number] (44727) Immature Grans (Abs) 0.0 {x10E3/uL} (Normal) Range: [...] 3.77-5.28 WBC 5.9 {x10E3/uL} (Normal) Range: 3.4-10.8 18-Ype-907439:22 HgA1C , Office (98786) Comments: 7.3 HgA1C , Office 7.3 % (Abnormal) Range: 4.6 - 7.1 75-Bnh-695636:22 Blood Glucose , Office (99859) Blood Glucose , Office 173 (Normal) 64-Cwf-89048:40 Basic Metabolic Profile (BMP) Comments: SEND RESULTS OF BMP TO .[facility] [address] [place], [address] GAP 11 (Normal) Range: 5-15 CO2 27.0 [...] A.D.A. criteria.Please note revised GLUCOSE reference range spipsgnoi98/02/2018. 06-Bnb-46265:40 Liver Profile Comments: SEND RESULTS OF BMP TO .[facility] [address] [place], [address] D BILI 0.09 mg/dL (Normal) Range: 0.00-0.30 T BILI 0.40 mg/dL (Normal) Range: 0.20-1.00 ALT 22 U/L (Normal) Range: 13-56 ALK P 103 U/L (Normal) Range: 45-117 AST 17 U/L (Normal) Range: 15-37 GLOB 4.0 g/dL (Normal) Range: 2.2-4.2 ALB 3.8 g/dL (Normal) Range: 3.2-5.0 T PROT 7.8 g/dL (Normal) Range: 6.4-8.2 65-Fef-470060:41 CALCIFEDIOL (96419) Comments: PATIENT WAS FASTINGPERFORMED BY: LabCoRiverview Medical CenterCxaafh1000 [facility] [id number] Vitamin D, 25-Hydroxy 44.2 ng/mL (Normal) Range: 30.0-100.0 Comments: Vitamin D deficiency has been defined by the [place] and an Endocrine Society practice guideline as alevel of serum 25-OH vitamin D less than 20 ng/mL (1,2).The Endocrine Society went on to further define vitamin Dinsufficiency as a level between 21 and 29 ng/mL (2).1. IOM ([place]). 2010. Dietary reference intakes for calcium and D. [place]: The National Academies Press.2. Jacinto MF, Eddy NOGUEIRA, Quintin JAVED, et al. Evaluation, treatment, and prevention of vitamin D deficiency: an Endocrine Society clinical practice guideline. JCEM. 2010; 96(7):1911-30. 83-Bxb-510244:41 METABOLIC PANEL, Comments: PATIENT WAS FASTINGPERFORMED BY: LabCoRiverview Medical CenterHdagin3796 [facility] [id number] Information: 334162,Q23978; OV 03/19 COMPREHENSIVE (23628) ALT (SGPT) 15 [iU]/L (Normal) Range: 0-32 [...] 8-27 Glucose 143 mg/dL (Abnormal) Range: 65-99 49-Cap-190482:31 Blood Glucose , Office (37689) Blood Glucose , Office 211 (Normal) 82-Eis-840526:31 HgA1C , Office (64204) HgA1C , Office 6.8 % (Normal) Range: 4.6 - 7.1 97-Hqq-508981:33 CBC, Platelets & Auto Diff Comments: PATIENT WAS FASTINGPERFORMED BY: LabCoRiverview Medical CenterPbevth6725 [facility] [id number] (56237) Immature Grans (Abs) 0.0 {x10E3/uL} (Normal) Range: [...] 3.77-5.28 WBC 7.7 {x10E3/uL} (Normal) Range: 3.4-10.8 06-Eym-955786:33 Lipid Panel (20580) Comments: PATIENT WAS FASTINGPERFORMED BY: [employer] Zvcikq2388 [facility] [id number] LDL/HDL Ratio 0.9 {ratio} (Normal) Range: 0.0-3.2 [...] Panel, Comprehensive Comments: PATIENT WAS FASTINGPERFORMED BY: SolidFirelin6370 [facility] [id number] (29577) ALT (SGPT) 18 [iU]/L (Normal) Range: 0-32 [...] CREATININE RATIO Comments: PATIENT WAS FASTINGPERFORMED BY: [facility] [id number] (77963) AND (11036) Alb/Creat Ratio 225.5 {mg/g_creat} (Abnormal) Range: 0.0-30.0 Albumin, Urine 112.5 ug/mL (Normal) Creatinine, Urine 49.9 mg/dL (Normal) :33 URINALYSIS (49946) Comments: PATIENT WAS FASTINGPERFORMED BY: [facility] [id number] Microscopic Examination See below: (Normal) Comments: Microscopic was indicated and was performed. Nitrite, Urine Negative (Normal) Urobilinogen,Semi-Qn 0.2 mg/dL (Normal) Range: 0.2-1.0 Bilirubin Negative (Normal) Occult Blood Negative (Normal) Ketones Negative (Normal) Glucose Negative (Normal) Protein Trace (Normal) WBC Esterase 2+ (Abnormal) Appearance Clear (Normal) Urine-Color Yellow (Normal) pH 6.5 (Normal) Range: 5.0-7.5 Specific [place] 1.014 (Normal) Range: 1.005-1.030 :33 TSH (66538) Comments: PATIENT WAS FASTINGPERFORMED BY: [facility] [id number] TSH 3.870 {uIU/mL} (Normal) Range: 0.450-4.500 89-Rdf-056462:33 Microscopic Examination Comments: PATIENT WAS FASTINGPERFORMED BY: [facility] [id number] Bacteria Few (Normal) Mucus Threads Present (Normal) Cast Type Hyaline casts (Normal) Casts Present {/lpf} (Abnormal) Epithelial Cells (non renal) >10 {/hpf} (Abnormal) Range: 0 - 10 RBC 0-2 {/hpf} (Normal) Range: 0 - 2 WBC 11-30 {/hpf} (Abnormal) Range: 0 - 5 :57 HgA1C , Office (56998) Comments: 6.6 HgA1C , Office 6.6 % (Normal) Range: 4.6 - 7.1 :57 Blood Glucose , Office (61171) Blood Glucose , Office 211 (Normal) :53 HEPATIC FUNCTION PANEL Comments: PATIENT NOT FASTINGPERFORMED BY: [facility] [id number] (49372) ALT (SGPT) 13 [iU]/L (Normal) Range: 0-32 AST (SGOT) 17 [iU]/L (Normal) Range: 0-40 Alkaline Phosphatase, S 89 [iU]/L (Normal) Range: 39-117 Bilirubin, Direct 0.08 mg/dL (Normal) Range: 0.00-0.40 Bilirubin, Total <0.2 mg/dL (Normal) Range: 0.0-1.2 Albumin, Serum 4.2 g/dL (Normal) Range: 3.6-4.8 Protein, Total, Serum 6.8 g/dL (Normal) Range: 6.0-8.5 :53 NRLSU-KXTBOIDJSJG-RFHPR (49408) Comments: PATIENT NOT FASTINGPERFORMED BY: [employer]70 [facility] [id number] AFP, Serum, Tumor Marker 2.6 ng/mL (Normal) Range: 0.0-8.3 Comments: Rosmery ECLIA methodology :53 ALKALINE PHOSPHATASE-ISOENZYM Comments: PATIENT NOT FASTINGPERFORMED BY: [facility] [id number] (34486) Intestinal Frac.: 5 % (Normal) Range: 0-18 Bone Fraction: 24 % (Normal) Range: 14-68 Liver Fraction: 71 % (Normal) Range: 18-85 07-Qxf-111101:11 ALKALINE PHOSPHATASE-ISOENZYM Comments: PATIENT NOT FASTINGPERFORMED BY: NEY [facility] Mspcpx29[address] Road[address]ublin [place] [id number] (34011) Intestinal Frac.: 3 % (Normal) Range: 0-18 Bone Fraction: 19 % (Normal) Range: 14-68 Liver Fraction: 78 % (Normal) Range: 18-85 Alkaline Phosphatase, S 122 [iU]/L (Abnormal) Range: 39-117 79-Dhf-943136:11 CALCIFEDIOL (58193) Comments: PATIENT NOT FASTINGPERFORMED BY: [facility] Xamdpe3213 [address] RoadDublin [place] [id number] Vitamin D, 25-Hydroxy 37.5 ng/mL (Normal) Range: 30.0-100.0 Comments: Vitamin D deficiency has been defined by the [place] of[place] and an Endocrine Society practice guideline as alevel of serum 25-OH vitamin D less than 20 ng/mL (1,2).The Endocrine Society went on to further define vitamin Dinsufficiency as a level between 21 and 29 ng/mL (2).1. IOM ([place]). 2010. Dietary reference intakes for calcium and D. [place]: The National Academies Press.2. Jacinto MF, Eddy [place], Anay-Gonzalo JAVED, et al. Evaluation, treatment, and prevention of vitamin D deficiency: an Endocrine Society clinical practice guideline. JCEM. 2010; 96(7):1911-30. 40-Qeh-633828:11 TSH (18420) Comments: PATIENT NOT FASTINGPERFORMED BY: [facility] Qikxqg0722 [address] RoadDublin [place] [id number] TSH 1.620 {uIU/mL} (Normal) Range: 0.450-4.500 03-Mxw-670105:11 T4, FREE (THYROXINE) (19334) Comments: PATIENT NOT FASTINGPERFORMED BY: [facility] Icsuzb4460 [address] RoadDublin [place] [id number] T4,Free(Direct) 1.00 ng/dL (Normal) Range: 0.82-1.77 84-Isj-238224:11 T3, FREE (TRIDOTHYRONINE) (36497) Comments: PATIENT NOT FASTINGPERFORMED BY: [facility] Hwkdiw7277 [facility] [id number] Triiodothyronine,Free,Serum 2.5 pg/mL (Normal) Range: 2.0-4.4 :08 HgA1C , Office (00328) HgA1C , Office 7.4 % (Abnormal) Range: 4.6 - 7.1 :08 Blood Glucose , Office (97028) Blood Glucose , Office 190 (Normal) :30 Lipid Profile Comments: Order Date: 12/12/16Order Info: 0788-1 - *Hepatic Function PanelOrder Info: 73880-2 - *Lipid Profile CC PCPComments: 12 hours fasting, may have water.Comments: 6 months / [facility] [address] [place], [place], [address] VLDL 46 mg/dL (Abnormal) Range: 5-40 LDL [...] Info: 0788-1 - *Hepatic Function PanelOrder Info: 81609-0 - *Lipid Profile CC PCPComments: 12 hours fasting, may have water.Comments: 6 months / pre [facility]WW[facility] [address] [place], [place], [id number] D BILI 0.11 mg/dL (Normal) Range: 0.00-0.30 T BILI 0.40 mg/dL (Normal) Range: 0.20-1.00 ALT 19 U/L (Normal) Range: 12-78 ALK P 132 U/L (Abnormal) Range: 45-117 AST 15 U/L (Normal) Range: 15-37 GLOB 4.3 g/dL (Abnormal) Range: 2.3-3.5 ALB 3.5 g/dL (Normal) Range: 3.4-5.0 T PROT 7.8 g/dL (Normal) Range: 6.4-8.2 4-Jty-427780:55 TSH (THYROID STIMULATING Comments: Week of Apr 09; PATIENT NOT FASTINGPERFORMED BY: [facility] [id number] HORMONE) (41231) TSH 0.728 {uIU/mL} (Normal) Range: 0.450-4.500 :55 HgA1C , Office (15622) HgA1C , Office 6.9 % (Normal) Range: 4.6 - 7.1 :55 Blood Glucose , Office (08875) Blood Glucose , Office 143 (Normal) 04-Zfl-836534:11 Microscopic Examination Comments: PATIENT WAS FASTINGPERFORMED BY: [facility] [id number] Bacteria Few (Normal) Mucus Threads Present (Normal) Cast Type Hyaline casts (Normal) Casts Present {/lpf} (Abnormal) Epithelial Cells (non renal) 0-10 {/hpf} (Normal) Range: 0 - 10 RBC 0-2 {/hpf} (Normal) Range: 0 - 2 WBC 6-10 {/hpf} (Abnormal) Range: 0 - 5 91-Ifm-804633:11 URINALYSIS, W/ MICRO (94437) Comments: January 2017; PATIENT WAS FASTINGPERFORMED BY: [facility] [id number] Microscopic Examination See below: (Normal) Comments: Microscopic was indicated and was performed. Nitrite, Urine Negative (Normal) Urobilinogen,Semi-Qn 0.2 mg/dL (Normal) Range: 0.2-1.0 Bilirubin Negative (Normal) Occult Blood Negative (Normal) Ketones Negative (Normal) Glucose Trace (Abnormal) Protein 1+ (Abnormal) WBC Esterase 1+ (Abnormal) Appearance Clear (Normal) Urine-Color Yellow (Normal) pH 6.5 (Normal) Range: 5.0-7.5 Specific [place] 1.016 (Normal) Range: 1.005-1.030 08-Kgq-731082:11 MICROALBUMIN: CREATININE RATIO Comments: January 2017; PATIENT WAS FASTINGPERFORMED BY: [employer] Tofcbu0583 [facility] Hospital[facility]XisAd[facility] [id number] (40343) AND (91525) Microalb/Creat Ratio 208.2 {mg/g_creat} (Abnormal) Range: 0.0-30.0 Microalbumin, Urine 182.2 ug/mL (Normal) Creatinine, Urine 87.5 mg/dL (Normal) 72-Wcx-530555:11 CBC, Platelets & Auto Diff Comments: January 2017; PATIENT WAS FASTINGPERFORMED BY: [employer] Behdks1831 [facility] [id number] (06203) Immature Grans (Abs) 0.0 {x10E3/uL} (Normal) Range: [...] 3.77-5.28 WBC 5.6 {x10E3/uL} (Normal) Range: 3.4-10.8 08-Yku-543694:11 Metabolic Panel, Comprehensive Comments: January 2017; PATIENT WAS FASTINGPERFORMED BY: LabCoRiverview Medical CenterAqtrrj4524 [facility] [id number] (17342) ALT (SGPT) 13 [iU]/L (Normal) Range: 0-32 [...] Glucose, Serum 120 mg/dL (Abnormal) Range: 65-99 83-Tty-789793:11 TSH (THYROID STIMULATING Comments: January 2017; PATIENT WAS FASTINGPERFORMED BY: [facility] Djqqxd4849 [facility] [id number] HORMONE) (85621) TSH 0.982 {uIU/mL} (Normal) Range: 0.450-4.500 1-Muw-621277:02 Lipid Profile Comments: Order Date: 12/04/16Order Info: [id number] - *Hepatic Function PanelOrder Date: 12/04/16Order Info: [id number] - *Lipid Profile CC PCPComments: 12 hours fasting, may have water.[place] [address] [place], [place], [id number] VLDL 36 mg/dL (Normal) Range: 5-40 LDL [...] 200-240 mg/dL Borderline >240 mg/dL High Risk 9-Ots-505824:02 Liver Profile Comments: Order Date: 12/04/16Order Info: [id number] - *Hepatic Function PanelOrder Date: 12/04/16Order Info: [id number] - *Lipid Profile CC PCPComments: 12 hours fasting, may have water.[place] [address] [place], [place], [id number] D BILI 0.07 mg/dL (Normal) Range: 0.00-0.30 T BILI 0.30 mg/dL (Normal) Range: 0.20-1.00 ALT 21 U/L (Normal) Range: 12-78 ALK P 112 U/L (Normal) Range: 45-117 AST 19 U/L (Normal) Range: 15-37 GLOB 3.8 g/dL (Abnormal) Range: 2.3-3.5 ALB 3.4 g/dL (Normal) Range: 3.4-5.0 T PROT 7.2 g/dL (Normal) Range: 6.4-8.2 74-Vmw-857670:29 URINE RANDELL CULTURE-ZEINAB COL Comments: PATIENT NOT FASTINGPERFORMED BY: [facility]DateMemorial Medical CenterPoflbl1520 [facility] [id number] Information: SRC:UC COUNT (05491) Result 1 MUG (Normal) Comments: Mixed urogenital flora25,000-50,000 colony forming units per mL Urine Final report (Normal) Culture,Comprehensive 95-Yjn-697040:53 Urinalysis, Office (69193) UA - LEUKOCYTE ESTERASE Small (Normal) UA - NITRITE Negative (Normal) URINE UROBILINGN ZEINAB TIMED Normal mg/dL (Normal) UA - PROTEIN Negative mg/dL (Normal) UA - PH 7 (Normal) UA - BLOOD Negative (Normal) UA - SPECIFIC GRAVITY 1.020 (Normal) UA - KETONES Negative mg/dL (Normal) UA - BILIRUBIN Small (Normal) UA - GLUCOSE Negative (Normal) 63-Ibw-939004:51 Blood Glucose , Office (00758) Comments: 169 Blood Glucose , Office 169 (Normal) :52 HgA1C , Office (11874) Comments: 7.0 HgA1C , Office 7.0 % (Normal) Range: 4.6 - 7.1 :22 URINE RANDELL CULTURE-IDENTIFICATN Comments: PATIENT NOT FASTINGPERFORMED BY: LabAleda E. [facility] Center6370 [facility] [id number] Information: SRC:UC (85937) Result 1 MUG (Normal) Comments: Mixed urogenital flora10,000-25,000 colony forming units per mL Urine Final report (Normal) Culture,Comprehensive 78-Xpu-675250:05 Urinalysis, Office (66166) UA - LEUKOCYTE ESTERASE Negative (Normal) UA - NITRITE Negative (Normal) URINE UROBILINGN ZEINAB TIMED Normal mg/dL (Normal) UA - PROTEIN 30 mg/dL (Normal) UA - PH 6 (Abnormal) UA - BLOOD non-hemolyzed trace (Normal) UA - SPECIFIC GRAVITY 1.020 (Normal) UA - KETONES Negative mg/dL (Normal) UA - BILIRUBIN Negative (Normal) UA - GLUCOSE 100 (Abnormal) :42 HgA1C , Office (14949) HgA1C , Office 6.2 % (Normal) Range: 4.6 - 7.1 :42 Blood Glucose , Office (96065) Blood Glucose , Office 137 (Normal) :01 TSH (THYROID STIMULATING Comments: PATIENT NOT FASTINGPERFORMED BY: [employer] [facility] [id number] HORMONE) (16229) TSH 1.820 {uIU/mL} (Normal) Range: 0.450-4.500 :03 HEPATIC FUNCTION PANEL Comments: PATIENT NOT FASTINGPERFORMED BY: [employer] [facility] [id number] (71144) ALT (SGPT) 15 [iU]/L (Normal) Range: 0-32 AST (SGOT) 23 [iU]/L (Normal) Range: 0-40 Alkaline Phosphatase, S 95 [iU]/L (Normal) Range: 39-117 Bilirubin, Direct 0.12 mg/dL (Normal) Range: 0.00-0.40 Bilirubin, Total 0.3 mg/dL (Normal) Range: 0.0-1.2 Albumin, Serum 4.3 g/dL (Normal) Range: 3.6-4.8 Protein, Total, Serum 7.3 g/dL (Normal) Range: 6.0-8.5 :03 QFCOP-DEBFDUOIKIT-RXSBI (97430) Comments: PATIENT NOT FASTINGPERFORMED BY: [employer] Dpjmlg5450 [facility] [id number] AFP, Serum, Tumor Marker 2.8 ng/mL (Normal) Range: 0.0-8.3 Comments: Rosmery ECLIA methodology :03 HEPATITIS PANEL (30960) Comments: PATIENT NOT FASTINGPERFORMED BY: [employer] [facility] [id number] Hep C Virus Ab <0.1 {s/co_ratio} (Normal) Range: 0.0-0.9 Comments: Negative: < 0.8 Indeterminate: 0.8 - 0.9 Positive: > 0.9 . The CDC recommends that a positive HCV antibody result be followed up with a HCV Nucleic Acid Amplification test (337596). Hep B Core Ab, IgM Negative (Normal) HBsAg Screen Negative (Normal) Hep A Ab, IgM Negative (Normal) :58 CBC W/Diff, Automated Comments: CBCD FOR DR CHATMANWest[facility] State Hospitalisma [facility] [address] [place], [address] Absolute Lymph 1.84 {X10_3/ul} (Normal) Range: 0.83-4.51 [...] Comments: Order Date: 05/14/16Interface Comments: Reason:Order Date: 05/14/16[facility] [address] [place], [id number] T4 THYROXIN 11.6 ug/dL (Normal) Range: 4.8-13.9 :58 Thyroid Stim Hormone (TSH) Comments: Order Date: 05/14/16Interface Comments: Reason:Order Date: 05/14/16[facility] [address] [place], [address] TSH 1.96 {uIU/mL} (Normal) Range: 0.358-3.74 :11 Urinalysis, Office (16173) UA - LEUKOCYTE ESTERASE Small (Normal) UA - NITRITE Negative (Normal) URINE UROBILINGN ZEINAB TIMED Normal mg/dL (Normal) UA - PROTEIN 30 mg/dL (Normal) UA - PH 6 (Abnormal) UA - BLOOD Negative (Normal) UA - SPECIFIC GRAVITY 1.010 (Normal) UA - KETONES Negative mg/dL (Normal) UA - BILIRUBIN Negative (Normal) UA - GLUCOSE Negative (Normal) :50 Basic Metabolic Profile (BMP) Comments: [facility] [address] [place], [address] GAP 7 (Normal) Range: 5-15 CO2 33.0 [...] 100 mg/dL (Normal) Range: 70-110 :48 MAGNESIUM (07798) Comments: PATIENT NOT FASTINGPERFORMED BY: LabCoRiverview Medical CenterCxoezi7323 [facility] [id number] Magnesium, Serum 1.6 mg/dL (Normal) Range: 1.6-2.3 :48 TSH (THYROID STIMULATING Comments: PATIENT NOT FASTINGPERFORMED BY: [facility] Pqqrih6623 [facility] [id number] HORMONE) (34504) TSH 6.340 {uIU/mL} (Abnormal) Range: 0.450-4.500 :48 URIC ACID BLOOD (71113) Comments: PATIENT NOT FASTINGPERFORMED BY: LabCoMemorial Medical CenterAsibtw1241 [facility] [id number] Uric Acid, Serum 6.1 mg/dL (Normal) Range: 2.5-7.1 Comments: Therapeutic target for gout patients: <6.0 :09 Blood Glucose , Office (25783) Blood Glucose , Office 116 (Normal) :09 HgA1C , Office (57605) HgA1C , Office 6.7 % (Normal) Range: 4.6 - 7.1 :19 Basic Metabolic Profile (BMP) Comments: Order Date: 03/12/16OV Order #: [id number] Medical Specialty [facility] [place] [address] [place], [address] GAP 7 (Normal) Range: 5-15 CO2 29.0 [...] 7-18 GLU 107 mg/dL (Normal) Range: 70-110 20-Ejq-186008:19 T4 Total, Thyroxin Comments: Order Date: 03/12/16 Order #: [id number] Valley Surgical Hospital [address] [place], [place], [address] T4 THYROXIN 9.4 ug/dL (Normal) Range: 4.8-13.9 :19 Thyroid Stim Hormone (TSH) Comments: Order Date: 03/12/16 Order #: [id number] Valley Surgical Hospital [address] [place], [place], [address] TSH 5.44 {uIU/mL} (Abnormal) Range: 0.358-3.74 :49 Aerobic Bacterial Culture Comments: PATIENT NOT FASTINGPERFORMED BY: [facility] Zdnaga9322 [facility] [id number] Information: RT AXILLA Result 1 MRSA (Abnormal) [...] (Normal) Comments: PATIENT NOT FASTINGPERFORMED BY: [facility] Qqhacq9349 [place] [id number] Information: NASAL 5:49 Culture 57-Dan-443459:20 Basic Metabolic Profile (BMP) Comments: [facility] [address] [place], [place], [address] GAP 7 (Normal) Range: 5-15 CO2 29.0 [...] A.D.A. criteria. :02 Blood Glucose , Office (68848) Blood Glucose , Office 137 (Normal) :54 Urine Drug Screen (Office - WNL (Normal) Comments: pos for oxy, all else neg Urine Drug Screen 6 Panel) Comments: All negative except Oxy (53503) :52 HgA1C , Office (13635) Comments: 7.3 HgA1C , Office 7.3 % (Abnormal) Range: 4.6 - 7.1 7-Lqf-457273:43 Basic Metabolic Profile (BMP) Comments: DR URBINA ORDERED BMPDR MALCOLM ORDERED LIVER LIPIDWSelect Medical Specialty [facility] [place] [address] [place], [address] GAP 3 (Abnormal) Range: 5-15 CO2 33.0 mmol/L (Abnormal) Range: 21.0-32.0 CL 102 mmol/L (Normal) Range: 98-107 K 3.4 mmol/L (Abnormal) Range: 3.5-5.1 Comments: ADDENDA: Denisse at [facility] aware of potassium level NA 138 [...] 7-18 GLU 101 mg/dL (Normal) Range: 70-110 6-Ywp-856793:43 Lipid Profile Comments: DR URBINA ORDERED BMPDR MOODISPAW ORDERED LIVER LIPIDOhio Valley Surgical Hospital [address] [place], [address] VLDL 26 mg/dL (Normal) Range: [...] 200-240 mg/dL Borderline >240 mg/dL High Risk 1-Mfg-874811:43 Liver Profile Comments: DR URBINA ORDERED BMPDR MOODISPAW ORDERED LIVER LIPIDOhio Valley Surgical Hospital [address] [place], [address] D BILI 0.14 mg/dL (Normal) Range: 0.00-0.30 T BILI 0.40 mg/dL (Normal) Range: 0.20-1.00 ALT 16 U/L (Normal) Range: 12-78 ALK P 112 U/L (Normal) Range: 50-136 AST 19 U/L (Normal) Range: 15-37 GLOB 3.9 g/dL (Abnormal) Range: 2.3-3.5 ALB 3.0 g/dL (Abnormal) Range: 3.4-5.0 T PROT 6.9 g/dL (Normal) Range: 6.4-8.2 :02 Blood Glucose , Office (06868) Blood Glucose , Office 160 (Normal) :37 HgA1C , Office (91208) Comments: 7.2 HgA1C , Office 7.2 % (Abnormal) Range: 4.6 - 7.1 :24 MRSA Culture (25573) Comments: [facility] [address] [place], [place], [address] MRSA RESULT Negative (Normal) :59 Metabolic Panel, Basic Comments: send to Dr.Masroor Urbina; PATIENT NOT FASTINGPERFORMED BY: LabCoRiverview Medical CenterIhrjwm6694 [facility] [id number] Information: [id number] (52162) Calcium, Serum 10.7 mg/dL (Abnormal) Range: 8.7-10.3 [...] Glucose, Serum 182 mg/dL (Abnormal) Range: 65-99 6-Zpl-020041:09 MRSA Culture (35009) Comments: [facility] [address] [place], [address] MRSA RESULT POSITIVE (Abnormal) :39 Lipid Profile Comments: [facility] [address] [place], [phone] VLDL 23 mg/dL (Normal) Range: 5-40 LDL [...] mg/dL High Risk :39 Liver Profile Comments: [facility] [address] [place], [address] ; non-emergent and handled by [...] Range: 6.4-8.2 :39 T4 Total, Thyroxin Comments: [place] [address] [place], [address] T4 THYROXIN 10.9 ug/dL (Normal) Range: 4.8-13.9 :39 Thyroid Stim Hormone (TSH) Comments: [facility] [address] [place], [address] TSH 3.63 {uIU/mL} (Normal) Range: 0.358-3.74 1-Rev-425413:13 LIPID PANEL (54962) Comments: PATIENT WAS FASTINGPERFORMED BY: [facility]6370 [facility] [id number] LDL/HDL Ratio 1.2 {ratio_units} (Normal) Range: 0.0-3.2 [...] Cholesterol, Total 160 mg/dL (Normal) Range: 100-199 9-Cmr-685010:13 CBC W/AUTO DIFF WBC Comments: PATIENT WAS FASTINGPERFORMED BY: [facility]6370 [facility] [id number] Information: [id number] (26533) Immature Grans (Abs) 0.0 {x10E3/uL} (Normal) Range: [...] 3.77-5.28 WBC 4.5 {x10E3/uL} (Normal) Range: 3.4-10.8 1-Nyz-221674:13 METABOLIC PANEL, COMPREHENSIVE Comments: PATIENT WAS FASTINGPERFORMED BY: LabCoRiverview Medical CenterFywpcb4455 [facility] [id number] (68869) ALT (SGPT) 8 [iU]/L (Normal) Range: 0-32 [...] Glucose, Serum 109 mg/dL (Abnormal) Range: 65-99 5-Ytd-720347:15 Basic Metabolic Profile (BMP) Comments: [facility] [address] [place], [place], [address] GAP 7 (Normal) Range: 5-15 CO2 30.0 [...] 200 mg/dLsuggests DIABETES MELLITUS per A.D.A. criteria. 0-Cwg-843526:15 CBC W/Diff, Automated Comments: [facility] [address] [place], [place], [address] Absolute Lymph 0.95 {X10_3/ul} (Normal) Range: 0.83-4.51 [...] K/mm3 (Normal) Range: 4.4-11.0 :31 LIPID PANEL (59364) Comments: PATIENT WAS FASTINGPERFORMED BY: LabCoRiverview Medical CenterCtwvpi9544 [facility] [id number]; non-emergent till apt LDL/HDL Ratio 1.6 {ratio_units} [...] Cholesterol, Total 219 mg/dL (Abnormal) Range: 100-199 56-Knm-614404:31 CBC with auto diff Comments: PATIENT WAS FASTINGPERFORMED BY: LabCoRiverview Medical CenterNqthlu4029 [facility] [id number] Information: [id number] (37218) Immature Grans (Abs) 0.0 {x10E3/uL} (Normal) Range: [...] CREATININE RATIO Comments: PATIENT WAS FASTINGPERFORMED BY: LabCoRiverview Medical CenterFzvrzr6734 [facility] [id number] (20949) AND (60501) Microalb/Creat Ratio 93.7 {mg/g_creat} (Abnormal) Range: 0.0-30.0 Microalbumin, Urine 196.4 ug/mL (Abnormal) Range: 0.0-17.0 Creatinine, Urine 209.7 mg/dL (Normal) Range: 15.0-278.0 :31 METABOLIC PANEL, COMPREHENSIVE Comments: PATIENT WAS FASTINGPERFORMED BY: [employer]6370 [facility] [id number] (95152) ALT (SGPT) 20 [iU]/L (Normal) Range: 0-32 [...] Glucose, Serum 120 mg/dL (Abnormal) Range: 65-99 06-Zot-497145:31 Hemoglobin Glyclated (HGB A1C) Comments: PATIENT WAS FASTINGPERFORMED BY: [employer] [facility] [id number] (69437) Hemoglobin A1c 7.6 % (Abnormal) Range: 4.8-5.6 Comments: . Pre-diabetes: 5.7 - 6.4 Diabetes: >6.4 Glycemic control for adults with diabetes: <7.0 41-Obb-562600:30 Urinalysis, Complete Comments: Order Date: 07/18/15How was Urine Obtained? CLEAN [facility] [address] [place], [place], [id number] MUCUS, URINE 0 SEEN {/hpf} (Normal) BACTERIA [...] (Abnormal) CLARITY Clear (Normal) COLOR Yellow (Normal) 51-Qdr-049279:43 CBC W/Diff, Automated Comments: [facility] [address] [place], [place], [address] PATH REV May foll (Normal) SMEAR COMMENT [...] 4.2-5.4 WBC 15.1 K/mm3 (Abnormal) Range: 4.4-11.0 83-Wre-239837:43 Comprehensive Metabolic Profil Comments: [facility] [address], [place], [address] GAP 8 (Normal) Range: 5-15 CO2 33.0 [...] be drawn 6H after initial specimenWSelect Medical Specialty Hospital [facility] [place] [address] [place], [place], [address] LACTIC ACID 1.7 mmol/L (Normal) Range: 0.4-2.0 :43 Magnesium Comments: [facility] [address] [place], [place], [address](542) MG 1.3 mg/dL (Abnormal) Range: 1.8-2.4 :43 Partial Thromboplast Time Comments: [facility] [address] [place], [place], [phone] PTT 31.4 s (Normal) Range: 24.1-36.2 :43 Phosphorus Comments: [facility] [address] [place], [address] PHOS 1.0 mg/dL (Abnormal) Range: 2.5-4.9 Comments: Critical Result(s) Called at: 17:06:16 07/18/2015 by:Stacey ibarra rn 93-Zpj-996516:43 Prothrombin Time w/INR Comments: [facility] [address] [place], [place], [address](110) INR 0.9 (Normal) PROTIME 12.8 s (Normal) [...] with abnormal findings in adult : Reviewed Director Of Religious Activities Letter Indication: Encounter for annual general medical [...] - Strool Based DNA Test, CRC SCREEN (66773)Indication: Encounter for screening for malignant neoplasm of colon (Renamed from Special screening for malignant neoplasms, colon) On: 68-Koi-880548:05 Request FECAL OCCULT- Tubes sent home (90835)Indication: Encounter for screening for malignant neoplasm of colon (Renamed from Special screening for malignant neoplasms, colon) On: 49-Pwq-027400:09 Request Lipid Panel (15123)Indication: Diabetes mellitus type 2, insulin dependent On: 91-Oem-191533:08 Request Comments: around January Metabolic Panel, Comprehensive (62507)Indication: Diabetes mellitus type 2, insulin dependent On: 22-Qmq-630956:08 Request Comments: around January CBC, Platelets & Auto Diff (42156)Indication: Diabetes mellitus type 2, insulin dependent On: 66-Rsc-701852:08 Request Comments: around January TSH (25343)Indication: Diabetes mellitus type 2, insulin dependent On: 15-Hii-924069:08 Request Comments: around January Rapid Flu (89496 x 2)Indication: Unspecified Diagnosis On: 29-Xkf-71442:33 Request CBC & PLATELETS (AUTO) (58385)Indication: Abdominal pain On: 2-Ldc-796940:57 Request CULTURE, NOSE (99357)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 On: :31 Request Comments: check for MRSA MRSA Culture (68356)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 On: :23 Request Comments: rt axila HgA1C , Office (36444)Indication: Diabetes mellitus type 2, insulin dependent On: 88-Key-617948:21 Request Urinalysis, Office (36955)Indication: History of MRSA infection On: 92-Vvg-709731:42 Request Hemoglobin Glyclated (HGB A1C) (30280)Indication: Diabetes mellitus type 2, uncontrolled On: 90-Dpt-872024:46 Request MICROALBUMIN: CREATININE RATIO (58705) AND (98403)Indication: Hypertensive heart disease without heart failure On: 31-Xqd-312348:46 Request Planned Encounters Medical; 3 Month FU - On: 28-Jul-2018 13:30 Comprehensive Internal Medicine Elsa Chopra CNP, CNP, Mary E Planned Procedures Overnight Pulse OX (61849)By: On: 30-Jun-2018 Intent Lee Ann Schafer DO SPIROMETRY PERFORMED (56535)By: On: 25-Jun-2018 Intent Visit, Nurse SPIROMETRY PERFORMED (68392)By: On: 25-Jun-2018 Intent Visit, Nurse SIX MINUTE WALK TEST (88899)By: On: 25-Jun-2018 Intent Visit, Nurse Flu Vaccine (Quadrivalent) 71907Ot: On: 20-May-2018 Intent Karly Chandra DEXA SCAN AXIAL SKELETON (46347)By: On: 18-Dec-2017 Intent Elsa Chopra CNP, CNP, Mary E SCREENING DIGITAL TOMOSYNTHESIS OF On: 18-Dec-2017 Intent BREAST (37342)By: Elsa Chopra CNP, CNP, Mary E Flu Vaccine (Quadrivalent) 15207Qm: On: 11-Jun-2017 Intent Tatianaabelardomickey MCKINLEYElsa Tatianaabelardomickey MCKINLEY [place] Comments: InfluenzaLot #[id number]-L dltd, IMDose prefilled syringeVIS and ABN signedgiven by:GENARO blackwood PHYSICAL THERAPY TREATMENT On: 11-Dec-2016 Intent (09144)By: Adelita Doshi LPN PHYSICAL THERAPY EVALUATION On: 11-Dec-2016 Intent (40068)By: Elsa Chopra CNP, CNP [place] Toradol Injection, 30 mg On: 10-Dec-2016 Intent ([id number])By: Elsa Chopra CNP, CNP [place] Radiology - Hip - RightBy: Nav On: 10-Dec-2016 Intent ARLEN OneliaMarly Chopra CNP [place] Aerosol Treatment (20007)By: Tico On: 16-Oct-2016 Intent Adelita LAM Flu Vaccine (Quadrivalent) 50259Xh: On: 11-Jul-2016 Intent Elsa Chopra CNP, CNP [place] Comments: FLUlot: [id number]:01/16site:Lt deltoidroute:IMdose:.5mlDEMICK, [place] Ultrasound - Abdomen CompleteBy: On: 03-Jul-2016 Intent Elsa Chopra CNP, CNP [place] Radiology - KUBBy: Elsa Chopra CNP On: 03-Jul-2016 Elsa Youssef CNP DRAIN/INJECT SMALL JOINT OR BURSA On: 18-May-2016 Intent ()By: Elsa Chopra CNP Comments: to left wrist joint 1/2 cc kenalog, 1/2 cc marcaine. Kenalog lot #[id number] exp Marcain lot [id number] ex Elsa MCKINLEY MAMMOGRAM, SCREENING, BOTH BREAST On: 11-May-2016 Intent (30038)By: Elsa Chopra CNP, CNP, Mary E Radiology [...] mellitus without complication) : DISCONTINUED - URINALYSIS (30488) Indication: Diabetes mellitus type II, controlled, with no complications (Renamed from Controlled type 2 diabetes mellitus without complication) CKD (chronic kidney disease), stage III : DISCONTINUED - MICROALBUMIN: CREATININE RATIO (62994) AND (16781) Indication: CKD (chronic kidney disease), stage III Diabetes mellitus type II, controlled, with no complications (Renamed from Controlled type 2 diabetes mellitus without complication) : DISCONTINUED - CBC, PLATELETS & AUT DIFF (86888) Indication: Diabetes mellitus type II, controlled, with no complications (Renamed from Controlled type 2 diabetes mellitus without complication) Diabetes mellitus type II, controlled, with no complications (Renamed from Controlled type 2 diabetes mellitus without complication) : DISCONTINUED - METABOLIC PANEL, COMPREHENSIVE (17109) Indication: Diabetes mellitus type II, controlled, with no complications (Renamed from Controlled type 2 diabetes mellitus without complication) Diabetes mellitus type II, controlled, with no complications (Renamed from Controlled type 2 diabetes mellitus without complication) : DISCONTINUED - TSH (85370) Indication: Diabetes mellitus type II, controlled, with [...] dependent : DISCONTINUED - METABOLIC PANEL, BASIC (60549) Indication: Diabetes mellitus type 2, insulin dependent [...] patient does not have durable power of deputy county attorney or living will. The patient has noticed getting bored, poor spirits most of time and lack of energy. Other providers contributing to the lyndsey bolton's care are hydroponics grower () and urologist (). Note for Annual [...] and is sleeping poorly. Patient has been [employer] End: 18-Dec-2017 14:15 pliant with instructions. Current [...] and is sleeping poorly. Patient has been [employer] End: 18-Sep-2017 13:50 pliant with instructions. Current [...] - Reason for ER visit: note: (surgery [facility]. ). The patient feels well [...] MRSA. She has had pre-op testing at [facility] on 10-14-2015, for Lumbar microdecompression for 10-24-[address] Senior Examiner Dr. Dahl for papers to be signed [...] 22:21 - sharp pain- went to [facility] ER). Current medication use: no side [...] surgeon- - recently went to er at [place] on jul 14 - she was having [...]
--- OUTSIDE RECORDS SUMMARY | 2018-09-25 14:39 | XMS RPT_ITS | Continuity of Care Document ---
:1950 Author Organization [facility] Address [address] [facility] [address] [place] [address] Phone Care Team Providers Name Role Phone Nav ARLENElsa Unavailable Malcolm STANLEY, Casey Florian Unavailable Linden DO , Dr. Aaron Diaz Unavailable John BatistaAnnalisa Unavailable Dr. Abimael Ag Unavailable Kirby STANLEY, Jared Galeano Unavailable Pascale Boston Unavailable Slarb RIFFLER TENDER, Adelita Unavailable Unavailable Long RIFFLER TENDER, Dora L Unavailable Unavailable Karly Chandra Unavailable [...] 585.3) Comments: follows with Dr. Munguia in [place], seen for sarcoidosis currently, stableGFR 42 Status: [...] on wean of steroid Scale 201-250. 5 ntotj915-050 8 ifwxh412-278 10 -461 12 units>401 15 unitsad ding metformin not [...] given in L arm subcutaneously paitent tolerated wellLOT#[id number]#2020 NOV 06 Status: Active Postmenopausal (Renamed from Postmenopausal status) (Z78.0, V49.81) Status: Active Pregnancies () Comments: 1. 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) Comments: Sees Ciara at [facility] for sarcoid in bone marrow [...] MOY Start : 18-Jul-2015 Active VITAMIN D3, 87077INBH (Oral Capsule) 1 (one) Capsule Capsule once [...] Refills: 0 Ordered:12-Mar-2016 Nav ARLEN, Elsa Reyes ANTHROPOLOGY INSTRUCTOR, Elsa Luke Start : 12-Mar-2016 End : [...] q12hrs (100 MG) End : 05-Aug-2015 Discontinued Comments:[facility] MUPIROCIN, 2% (External Ointment) 1 (one) [...] : 05-Aug-2015 Discontinued Comments:1,250mg IV q24hrs x 48qvns3,500mg IV q24hrs #14 Allergies and Adverse Reactions [...] Comments: was seeing Dr. Munguia's partner in [place] Dr. Morel, gfr 43%, has proteinuria Status: [...] Visit Report Result: Comments: See Note; NOTES: [facility] [address] [place] [address] OFFICE VISIT Date of Service: 02/17/18 MR#: [id number] Acct: [id number] Name: SHREYAS KATHLEEN Rep #: [id number] : 1950 Provider: Casey Fowler MD Age/Sex: 67/F Location: [facility] Status: Signed HPI HPI Details: SHREYAS KAHTLEEN, is a 67 F who presents to the office today for for outpatien t cardiovascular follow-up of her history of underlying CAD, non-ST segment elevation GA, paroxysmal atrial fibrillation, superimposed upon a history [...] PFSH Medical History Atherosclerotic heart disease of [place] coronary artery without angina pectoris (Chronic) History [...] stenosis Assessment AND Plan 1. Atherosclerosis of [place] coronary artery of [place] heart without angina pectoris I25.10 Mild Plan [...] for an outpatient visit in [facility] 9 months unless needed sooner. Thank you for allowing me to participate in the care of your patient. Please don't hesitate to call if any issues arise. This note was generated using a voice [facility] [facility] system and there may be incorrect words, spelling or punctuation that were not noted when reviewing the office note prior to saving. Follow Up 9 Months Coding Level of Care Code Off glen rodríguez,kelly l 4 Diagnoses Atherosclerosis of [place] coronary artery of [place] heart without angina pectoris I25.10 [place] vs. transplanted heart: [place] heart Paroxysmal atrial fibrillation I48.0 Hyperlipidemia, u nspecified hyperlipidemia type E78.5 Hyperlipidemia type: unspecified Essential hypertension I10 Hypertension type: essential hypertension Long-term use of high-risk medication Z79.899 Coding Level of Care Code Off glen rodríguez,level 4 Diagnoses Atherosclerosis of [place] coronary artery of [place] heart without angina pectoris I25.10 [place] vs. transplanted heart: [place] heart Paroxysmal atrial fibrillat ion I48.0 Hyperlipidemia, unspecified hyperlipidemia type E78.5 Hyperlipidemia type: unspecified Essential hypertension I10 Hypertension type: essential hypertension Long-term use of high-risk medicatio n Z79.899 02/17/18 1530 <Electronically signed by Casey Fowler MD> Date Casey Fowler MD Cosigner Signature: Date _ (if applicable) CC: Elsa Chopra NP 14-Feb-2018 SCREENING MAMM (CAD), BILAT Result: Comments: See Note; NOTES: [facility] Imaging Services [address] [place] [address] SCREENING MAMM (CAD), BILAT MR#: [id number] Acct: [id number] Name: SHREYAS KATHLEEN Rep #: [id number] : 1950 F 67 From: Elias Finn MD PCP: Elsa Chopra NP Status: REG CLI Study: SCREENING MAMM (CAD), BILAT Date of Exam: 02/14/18 Exam# [id number] Ordering Dr: Elsa Chopra MAMMO GRAPHY - [...] [facility] within [facility] days. Approximately 10% of breast cancers are not detected by mammography. A normal mammogram should not delay biopsy of a clinically suspicious abnormality. [id number] Elect ronically Signed: Elias Finn MD at 8:30 EDT Tel [phone], Service support , CC: Elsa Chpora NP Clinical Product Manager: Signed 21-Jan-2018 Dexa Bone Density Study Result: Comments: See Note; NOTES: [facility] Imaging Services [address] [place] [address] Dexa Bone Density Study MR#: [id number] Acct: [id number] Name: SHREYAS KATHLEEN Rep #: [id number] : 1950 F 67 From: Elias Finn MD PCP: Elsa Chopra NP Status: REG CLI Study: Dexa Bone Density Study Date of Exam: 01/21/18 Exam# [id number] Ordering Dr: Elsa Chopra STUDY: DUAL E [...] Elias Finn MD at 15:36 EDT Tel [phone], Service support , CC: Elsa Chopra NP Clinical Product Manager: Signed 10-Dec-2016 Hip 2-3 Views with Pelvis Result: Comments: See Note; NOTES: [facility] Imaging Services [address] [place] [address] Verdana 4d Hip 2-3 Views with Pelvis MR#: [id number] Acct: [id number] Name: SHREYAS KATHLEEN Keira Rep #: [id number] : 1950 F 66 From: Herve Jimenez MD PCP: Elsa Chopra Status: REG CLI Study: Hip 2-3 Views with Pelvis Date of Exam: 12/10/16 Exam# [id number] Ordering Dr: Elsa Chopra STUDY : X-RAY [...] FACR at 11:31 EDT , Service support [phone], CC: Elsa Chopra Clinical Product Manager: Signed 05-Jul-2016 Abdomen Complete Result: Comments: See Note; NOTES: [facility] Imaging Services [address] [place] [address] Verdana 4d Abdomen Complete MR#: [id number] Acct: [id number] Name: SHREYAS KATHLEEN Keira Rep #: [id number] : 1950 F 66 From: Elias Finn MD PCP: Elsa Chopra Status: REG CLI Study: Abdomen Complete Date of Exam: 07/05/16 Exam# [id number] Ordering Dr: Elsa Chopra STUDY: ABDOMINAL ULTRASOUND [...] Elias Finn MD at 9:35 EDT Tel [phone], Service support [phone], CC: Elsa Chopra Clinical Product Manager: Signed 05-Jul-2016 Abdomen Single View Result: Comments: See Note; NOTES: [facility] Imaging Services [address] [place] [address] Verdana 4d Abdomen Single View MR#: [id number] Acct: [id number] Name: SHREYAS KATHLEEN Rep #: [id number] : 1950 F 66 From: Elias Finn MD PCP: Elsa Chopra Status: REG CLI Study: Abdomen Single View Date of Exam: 07/05/16 Exam# [id number] Ordering Dr: Elsa Chopra STUDY: X-RA Y [...] of the L1 vertebrae. ORDER # : [id number] RAD/Abdomen Single View IMPRESSION: Moderate amount of fecal material is seen in the colon. Electronically Signed: Elias Finn MD at 10:34 EDT Tel [phone], Service sup port [phone], CC: Elsa Chopra Clinical Product Manager: Signed 18-May-2016 Bilat Scrn Digital AND CAD Result: Comments: See Note; NOTES: [facility] Imaging Services [address] [place] [address] Verdana 4d Bilat Scrn Digital AND CAD MR#: [id number] Acct: [id number] Name: JACINTO KATHLEEN Rep #: [id number] : 1950 F 65 From: Elias Finn MD PCP: Elsa Chopra Status: REG CLI Study: Bilat Scrn Digital AND CAD Date of Exam: 05/18/16 Exam# [id number] Ordering Dr: Elsa Chopra MAMMOGRAPHY - BILATERAL [...] biopsy of a clinically suspicious abnor mality. [id number] Electronically Signed: Elias Finn MD at 12:53 EDT Tel [phone], Service support [phone], CC: Elsa Chopra Clinical Product Manager: Signed 14-Feb-2016 Shoulder min 2 Views Result: Comments: See Note; NOTES: [facility] Imaging Services [address] [place] [address] Oscar 4d Shoulder min 2 Views MR#: [id number] Acct: [id number] Name: SHREYAS KATHLEEN Rep #: [id number] : 1950 F 65 From: Herve Jimenez MD PCP: Madeline Florez DO Status: REG CLI Study: Shoulder min 2 Views Date of Exam: 02/14/16 Exam# [id number] Ordering Dr: Pascale Boston DO STUDY: X-RAY [...] FACR at 14:50 EDT , Service support [phone], Fax RAD/Shoulder min 2 Views IMPRESSION: Bilateral of the acromioclavicular joint, otherwise normal x-ray examination of the shoulder. Electronically Signed: Herve Jimenez MD, FACR at 14:50 EDT , Service support [phone], CC: Pascale Boston DO; Madeline Florez DO Clinical Product Manager: Signed 21-Oct-2015 Spirometry (29319) Comments: mod restriction Result: 19-Sep-2015 Chest PA and Lateral Result: Comments: See Note; NOTES: [facility] Imaging Services [address] [place] [address] Verdana 4d Chest PA and Lateral MR#: [id number] Acct: [id number] Name: SHREYAS KATHLEEN Rep #: [id number] : 1950 F 65 From: Elias Finn MD PCP: Madeline Florez DO Status: REG CLI Study: Chest PA and Lateral Date of Exam: 09/19/15 Exam# [id number] Ordering Dr: Madeline Florez DO STUDY: X-RAY [...] Elias Finn MD at 13:58 EST Tel [phone], Service support [phone], RAD/Chest PA and Lateral IMPRESSION: Stable examination. No acute abnormality is seen. Electronically Doris d: Elias Finn MD at 13:58 EST Tel [phone], Service support [phone], CC: Madeline Florez DO Clinical Product Manager: Signed 25-Aug-2015 Spine Lumbar (Routine) Result: Comments: See Note; NOTES: [facility] Imaging Services [address] [place] [address] Verdana 4d Spine Lumbar (Routine) MR#: [id number] Acct: [id number] Name: SHREYAS MAJOR Rep #: [id number] : 1950 F 65 From: Herve Jimenez MD PCP: Madeline Florez DO Status: REG CLI Study: Spine Lumbar (Routine) Date of Exam: 08/25/15 Exam# [id number] Ordering Dr: ELIZABETH DE LEON M.D. STUDY: [...] FACR at 17:43 EST , Service support [phone], CC: ELIZABETH DE LEON M.D.; Madeline Florez DO Clinical Product Manager: Signed 25-Aug-2015 Spine Thoracic (Routine) Result: Comments: See Note; NOTES: [facility] Imaging Services [address] [place] [address] 4d Spine Thoracic (Routine) MR#: [id number] Acct: [id number] Name: SHREYAS SHARIF Keira Rep #: [id number] : 1950 F 65 From: Herve Jimenez MD PCP: Madeline Florez DO Status: REG CLI Study: Spine Thoracic (Routine) Date of Exam: 08/25/15 Exam# [id number] Ordering Dr: ELIZABETH RUIZ M.D. STUDY: MRI [...] FACR at 17:45 EST , Service support [phone], CC: ELIZABETH DE LEON M.D.; Komal Florez DO Clinical Product Manager: Signed 17-Aug-2015 Chest PA and Lateral Result: Comments: See Note; NOTES: [facility] Imaging Services [address] [place] [address] Verdana 4d Chest PA and Lateral MR#: [id number] Acct: [id number] Name: SHREYAS KATHLEEN Rep #: [id number] : 1950 F 65 From: Elias Finn MD PCP: Madeline Florez DO Status: REG CLI Study: Chest PA and Lateral Date of Exam: 08/17/15 Exam# [id number] Ordering Dr: Madeline Florez DO STUDY: X-RAY [...] Further followup is recommended. Electronically Signed: Elias Fnin MD at 11:09 EST Tel [phone], Service support [phone], Fax RAD/Chest PA and Lateral IMPRESSION: Residual changes persist in the right middle lobe and there has been some improvement. Further followup is recommended. Electr onically Signed: Elias Finn MD at 11:09 EST Tel [phone], Service support [phone], CC: Madeline Florez DO Clinical Product Manager: Signed 12-Aug-2015 Discharge Instruction Result: Comments: See Note; NOTES: [facility] Medical Records Department [address] [place] [address] Discharge Instruction 08/10/15 1702 MR#: [id number] Acct: [id number] Name: SHREYAS KATHLEEN Rep #: [id number] : 1950 65 From: Denny Bone MD [...] problems, contact your doctor. Call [facility] ([phone]) or report to the closest Emergency Room. Call 911 if necessary. 08/12/15 1502 <Elect ronically signed by Denny Bone MD> Date Denny Bone MD Cosigner Signature (If Indicated): Date CC: Madeline Florez DO 12-Aug-2015 Emergency Department Summary Result: Comments: See Note; NOTES: [facility] Medical Records Department [address] [place] [address] Emergency Department Summary MR#: [id number] Acct: [id number] Name: SHREYAS KATHLEEN Rep #: [id number] : 1950 65 From: Denny Bone MD [...] the patient had blood cultures obtained at [facility] and they were called to [...] Nacho Ramirez C: Madeline Bonilla MD T: [facility] JOB: [id number] 08/12/15 1502 <Electronically signed by Denny Bone MD> Date Denny Bone MD Cosigner Signature (If Indicated): Date ___ CC: Madeline Florez DO; Katelyn Arenas MD Date Dictated: 08/10/151708 Date Transcribed: 08/10/151708 Clinical Product Manager: Signed Social History Name Dates Details No [...] kg/m2 Body Surface Area Calculated 1.85 m2 50-Azu-001572:20 Temperature 97.8 f Comments: Method: Temporal Pulse [...] kg/m2 Body Surface Area Calculated 1.97 m2 69-Wuq-439068:34 BP Systolic 130 mm[Hg] Comments: Patient Position: Sitting BP Diastolic 80 mm[Hg] Comments: Patient Position: Sitting 10-Hpx-465489:03 Temperature 98 f Comments: Method: Temporal Pulse [...] Comments: Jun 19; PATIENT WAS FASTINGPERFORMED BY: [facility]oodAc[facility]Care [facility] SystemFbdtgm7463 [facility] [id number] (03826) AND (99324) Alb/Creat Ratio 266.9 {mg/g_creat} (Abnormal) Range: 0.0-30.0 Albumin, Urine 168.7 ug/mL (Normal) Creatinine, Urine 63.2 mg/dL (Normal) :00 Metabolic Panel, Comprehensive Comments: Jun 19; PATIENT WAS FASTINGPERFORMED BY: [facility] SystemRfevan5182 [facility] [id number] (78340) ALT (SGPT) 14 [iU]/L (Normal) Range: 0-32 [...] 8-27 Glucose 121 mg/dL (Abnormal) Range: 65-99 45-Urc-13287:00 HGB A1C (69135) Comments: June 19; PATIENT WAS FASTINGPERFORMED BY: [facility] GroupSent[facility] [id number] Hemoglobin A1c 7.0 % (Abnormal) Range: 4.8-5.6 Comments: . Prediabetes: 5.7 - 6.4 Diabetes: >6.4 Glycemic control for adults with diabetes: <7.0 95-Vys-276648:33 ALKALINE PHOSPHATASE-ISOENZYM Comments: PATIENT NOT FASTINGPERFORMED BY: [facility] GroupSent[facility] [id number] (20499) Intestinal Frac.: 0 % (Normal) Range: 0-18 Bone Fraction: 27 % (Normal) Range: 14-68 Liver Fraction: 73 % (Normal) Range: 18-85 Alkaline Phosphatase 89 [iU]/L (Normal) Range: 39-117 86-Bdi-441573:33 CBC, Platelets & Auto Diff Comments: PATIENT NOT FASTINGPERFORMED BY: [facility] GroupSent[facility] [id number] (12145) Immature Grans (Abs) 0.0 {x10E3/uL} (Normal) Range: [...] 3.77-5.28 WBC 5.9 {x10E3/uL} (Normal) Range: 3.4-10.8 59-Gyn-649175:22 HgA1C , Office (07916) Comments: 7.3 HgA1C , Office 7.3 % (Abnormal) Range: 4.6 - 7.1 14-Kzs-596049:22 Blood Glucose , Office (20878) Blood Glucose , Office 173 (Normal) 17-Lkq-13183:40 Basic Metabolic Profile (BMP) Comments: SEND RESULTS OF BMP TO .[facility] [address] [place], [address] GAP 11 (Normal) Range: 5-15 CO2 27.0 [...] criteria.Please note revised GLUCOSE reference range /02/2018. 66-Zax-10053:40 Liver Profile Comments: SEND RESULTS OF BMP TO .[facility] [address] [place], [address] D BILI 0.09 mg/dL (Normal) Range: 0.00-0.30 T BILI 0.40 mg/dL (Normal) Range: 0.20-1.00 ALT 22 U/L (Normal) Range: 13-56 ALK P 103 U/L (Normal) Range: 45-117 AST 17 U/L (Normal) Range: 15-37 GLOB 4.0 g/dL (Normal) Range: 2.2-4.2 ALB 3.8 g/dL (Normal) Range: 3.2-5.0 T PROT 7.8 g/dL (Normal) Range: 6.4-8.2 11-Rue-639996:41 CALCIFEDIOL (07283) Comments: PATIENT WAS FASTINGPERFORMED BY: LabCoAcuteCare Health SystemRiwozs0089 [facility] [id number] Vitamin D, 25-Hydroxy 44.2 ng/mL (Normal) Range: 30.0-100.0 Comments: Vitamin D deficiency has been defined by the Kellogg ofMedicine and an Endocrine Society practice guideline as alevel of serum 25-OH vitamin D less than 20 ng/mL (1,2).The Endocrine Society went on to further define vitamin Dinsufficiency as a level between 21 and 29 ng/mL (2).1. IOM (Kellogg of Medicine). 2010. Dietary reference intakes for calcium and D. [place]: The National Academies Press.2. Jacinto MF, Eddy NOGUEIRA, Quintin JAVED, et al. Evaluation, treatment, and prevention of vitamin D deficiency: an Endocrine Society clinical practice guideline. JCEM. 2010; 96(7):1911-30. 96-Xti-849046:41 METABOLIC PANEL, Comments: PATIENT WAS FASTINGPERFORMED BY: LabCoAcuteCare Health SystemSbwsoo1335 [facility] [id number] Information: 172308,O14655; OV 03/19 COMPREHENSIVE (47340) ALT (SGPT) 15 [iU]/L (Normal) Range: 0-32 [...] 8-27 Glucose 143 mg/dL (Abnormal) Range: 65-99 93-Cna-543155:31 Blood Glucose , Office (05396) Blood Glucose , Office 211 (Normal) 63-Bpf-466401:31 HgA1C , Office (87356) HgA1C , Office 6.8 % (Normal) Range: 4.6 - 7.1 94-Bad-214577:33 CBC, Platelets & Auto Diff Comments: PATIENT WAS FASTINGPERFORMED BY: [facility]CoAcute[facility] Health SystemRysauf9305 [facility] [id number] (00604) Immature Grans (Abs) 0.0 {x10E3/uL} (Normal) Range: [...] 3.77-5.28 WBC 7.7 {x10E3/uL} (Normal) Range: 3.4-10.8 13-Ayg-249694:33 Lipid Panel (16174) Comments: PATIENT WAS FASTINGPERFORMED BY: [employer] Zrkzjq3155 [facility] [id number] LDL/HDL Ratio 0.9 {ratio} (Normal) Range: 0.0-3.2 [...] Panel, Comprehensive Comments: PATIENT WAS FASTINGPERFORMED BY: [employer]lin6370 [facility] [id number] (72434) ALT (SGPT) 18 [iU]/L (Normal) Range: 0-32 [...] CREATININE RATIO Comments: PATIENT WAS FASTINGPERFORMED BY: [facility] GroupSent[facility] [id number] (72968) AND (65453) Alb/Creat Ratio 225.5 {mg/g_creat} (Abnormal) Range: 0.0-30.0 Albumin, Urine 112.5 ug/mL (Normal) Creatinine, Urine 49.9 mg/dL (Normal) :33 URINALYSIS (15835) Comments: PATIENT WAS FASTINGPERFORMED BY: [facility] GroupSent[facility] [id number] Microscopic Examination See below: (Normal) Comments: Microscopic was indicated and was performed. Nitrite, Urine Negative (Normal) Urobilinogen,Semi-Qn 0.2 mg/dL (Normal) Range: 0.2-1.0 Bilirubin Negative (Normal) Occult Blood Negative (Normal) Ketones Negative (Normal) Glucose Negative (Normal) Protein Trace (Normal) WBC Esterase 2+ (Abnormal) Appearance Clear (Normal) Urine-Color Yellow (Normal) pH 6.5 (Normal) Range: 5.0-7.5 Specific Miller 1.014 (Normal) Range: 1.005-1.030 :33 TSH (40234) Comments: PATIENT WAS FASTINGPERFORMED BY: [facility] GroupSent[facility] [id number] TSH 3.870 {uIU/mL} (Normal) Range: 0.450-4.500 13-Odc-324410:33 Microscopic Examination Comments: PATIENT WAS FASTINGPERFORMED BY: [facility] GroupSent[facility] [id number] Bacteria Few (Normal) Mucus Threads Present (Normal) Cast Type Hyaline casts (Normal) Casts Present {/lpf} (Abnormal) Epithelial Cells (non renal) >10 {/hpf} (Abnormal) Range: 0 - 10 RBC 0-2 {/hpf} (Normal) Range: 0 - 2 WBC 11-30 {/hpf} (Abnormal) Range: 0 - 5 :57 HgA1C , Office (74723) Comments: 6.6 HgA1C , Office 6.6 % (Normal) Range: 4.6 - 7.1 :57 Blood Glucose , Office (55056) Blood Glucose , Office 211 (Normal) :53 HEPATIC FUNCTION PANEL Comments: PATIENT NOT FASTINGPERFORMED BY: [facility] GroupSent[facility] [id number] (53276) ALT (SGPT) 13 [iU]/L (Normal) Range: 0-32 AST (SGOT) 17 [iU]/L (Normal) Range: 0-40 Alkaline Phosphatase, S 89 [iU]/L (Normal) Range: 39-117 Bilirubin, Direct 0.08 mg/dL (Normal) Range: 0.00-0.40 Bilirubin, Total <0.2 mg/dL (Normal) Range: 0.0-1.2 Albumin, Serum 4.2 g/dL (Normal) Range: 3.6-4.8 Protein, Total, Serum 6.8 g/dL (Normal) Range: 6.0-8.5 :53 WWCWW-SBDYPNOUVCZ-ORRRI (59723) Comments: PATIENT NOT FASTINGPERFORMED BY: [employer]70 FangddSentara Albemarle Medical Center [id number] AFP, Serum, Tumor Marker 2.6 ng/mL (Normal) Range: 0.0-8.3 Comments: Rosmery ECLIA methodology :53 ALKALINE PHOSPHATASE-ISOENZYM Comments: PATIENT NOT FASTINGPERFORMED BY: [facility] GroupSentara [facility] [id number] (47459) Intestinal Frac.: 5 % (Normal) Range: 0-18 Bone Fraction: 24 % (Normal) Range: 14-68 Liver Fraction: 71 % (Normal) Range: 18-85 17-Aez-009087:11 ALKALINE PHOSPHATASE-ISOENZYM Comments: PATIENT NOT FASTINGPERFORMED BY: [facility] Zsjrmm4[address] RoadDublin [place] [id number] (60925) Intestinal Frac.: 3 % (Normal) Range: 0-18 Bone Fraction: 19 % (Normal) Range: 14-68 Liver Fraction: 78 % (Normal) Range: 18-85 Alkaline Phosphatase, S 122 [iU]/L (Abnormal) Range: 39-117 32-Jfv-021176:11 CALCIFEDIOL (01372) Comments: PATIENT NOT FASTINGPERFORMED BY: [facility] Sqaxzh220[address] RoadDublin [place] [id number] Vitamin D, 25-Hydroxy 37.5 ng/mL (Normal) Range: 30.0-100.0 Comments: Vitamin D deficiency has been defined by the Kellogg ofMedicine and an Endocrine Society practice guideline as alevel of serum 25-OH vitamin D less than 20 ng/mL (1,2).The Endocrine Society went on to further define vitamin Dinsufficiency as a level between 21 and 29 ng/mL (2).1. IOM (Kellogg of Medicine). 2010. Dietary reference intakes for calcium and D. [place]: The National Academies Press.2. Jacinto MF, Eddy NC, Anay-Gonzalo JAVED, et al. Evaluation, treatment, and prevention of vitamin D deficiency: an Endocrine Society clinical practice guideline. JCEM. 2010; 96(7):1911-30. 99-Xig-045965:11 TSH (61697) Comments: PATIENT NOT FASTINGPERFORMED BY: [facility] Ptubio5199 [address] RoadDublin [place] [id number] TSH 1.620 {uIU/mL} (Normal) Range: 0.450-4.500 10-Lbt-981076:11 T4, FREE (THYROXINE) (19068) Comments: PATIENT NOT FASTINGPERFORMED BY: [facility] Nclveg0060 [address] RoadDublin [place] [id number] T4,Free(Direct) 1.00 ng/dL (Normal) Range: 0.82-1.77 80-Uaj-128602:11 T3, FREE (TRIDOTHYRONINE) (21128) Comments: PATIENT NOT FASTINGPERFORMED BY: [facility] Oduwcx5323 [facility] [id number] Triiodothyronine,Free,Serum 2.5 pg/mL (Normal) Range: 2.0-4.4 :08 HgA1C , Office (81092) HgA1C , Office 7.4 % (Abnormal) Range: 4.6 - 7.1 :08 Blood Glucose , Office (58170) Blood Glucose , Office 190 (Normal) :30 Lipid Profile Comments: Order Date: 12/12/16Order Info: 0788-1 - *Hepatic Function PanelOrder Info: 69894-3 - *Lipid Profile CC PCPComments: 12 hours fasting, may have water.Comments: 6 months / [facility] [address]xixm[address] [facility] [address] [place], [place], [address] VLDL 46 mg/dL (Abnormal) Range: 5-40 LDL [...] Info: 0788-1 - *Hepatic Function PanelOrder Info: 17908-3 - *Lipid Profile CC PCPComments: 12 hours fasting, may have water.Comments: 6 months / pre [facility]WReg[facility] Ogflycleqw[address] [place], [place], [id number] D BILI 0.11 mg/dL (Normal) Range: 0.00-0.30 T BILI 0.40 mg/dL (Normal) Range: 0.20-1.00 ALT 19 U/L (Normal) Range: 12-78 ALK P 132 U/L (Abnormal) Range: 45-117 AST 15 U/L (Normal) Range: 15-37 GLOB 4.3 g/dL (Abnormal) Range: 2.3-3.5 ALB 3.5 g/dL (Normal) Range: 3.4-5.0 T PROT 7.8 g/dL (Normal) Range: 6.4-8.2 4-Qkm-514462:55 TSH (THYROID STIMULATING Comments: Week of Apr 09; PATIENT NOT FASTINGPERFORMED BY: [facility] GroupSentara Albem[facility] Center [id number] HORMONE) (35748) TSH 0.728 {uIU/mL} (Normal) Range: 0.450-4.500 :55 HgA1C , Office (50824) HgA1C , Office 6.9 % (Normal) Range: 4.6 - 7.1 :55 Blood Glucose , Office (99381) Blood Glucose , Office 143 (Normal) 09-Rtk-847765:11 Microscopic Examination Comments: PATIENT WAS FASTINGPERFORMED BY: [employer] GroupSentara [facility] [id number] Bacteria Few (Normal) Mucus Threads Present (Normal) Cast Type Hyaline casts (Normal) Casts Present {/lpf} (Abnormal) Epithelial Cells (non renal) 0-10 {/hpf} (Normal) Range: 0 - 10 RBC 0-2 {/hpf} (Normal) Range: 0 - 2 WBC 6-10 {/hpf} (Abnormal) Range: 0 - 5 31-Wpn-642841:11 URINALYSIS, W/ MICRO (42364) Comments: January 2017; PATIENT WAS FASTINGPERFORMED BY: [employer] GroupSentara Albemarle Medical Center [id number] Microscopic Examination See below: (Normal) Comments: Microscopic was indicated and was performed. Nitrite, Urine Negative (Normal) Urobilinogen,Semi-Qn 0.2 mg/dL (Normal) Range: 0.2-1.0 Bilirubin Negative (Normal) Occult Blood Negative (Normal) Ketones Negative (Normal) Glucose Trace (Abnormal) Protein 1+ (Abnormal) WBC Esterase 1+ (Abnormal) Appearance Clear (Normal) Urine-Color Yellow (Normal) pH 6.5 (Normal) Range: 5.0-7.5 Specific Miller 1.016 (Normal) Range: 1.005-1.030 02-Clr-573701:11 MICROALBUMIN: CREATININE RATIO Comments: January 2017; PATIENT WAS FASTINGPERFORMED BY: Klood Grfehw9371 [facility] HospitalSport/LifeSentara [facility] [id number] ([id number]) AND (45097) Microalb/Creat Ratio 208.2 {mg/g_creat} (Abnormal) Range: 0.0-30.0 Microalbumin, Urine 182.2 ug/mL (Normal) Creatinine, Urine 87.5 mg/dL (Normal) 09-Goa-641938:11 CBC, Platelets & Auto Diff Comments: January 2017; PATIENT WAS FASTINGPERFORMED BY: Chiasma Npfiqx9959 FangddSentara Albemarle Medical Center [id number] (03752) Immature Grans (Abs) 0.0 {x10E3/uL} (Normal) Range: [...] 3.77-5.28 WBC 5.6 {x10E3/uL} (Normal) Range: 3.4-10.8 55-Ntr-929666:11 Metabolic Panel, Comprehensive Comments: January 2017; PATIENT WAS FASTINGPERFORMED BY: LabCoAcuteCare Health SystemGgdicc5534 [facility] [id number] ([id number]) ALT (SGPT) 13 [iU]/L (Normal) Range: 0-32 [...] Glucose, Serum 120 mg/dL (Abnormal) Range: 65-99 57-Esq-774582:11 TSH (THYROID STIMULATING Comments: January 2017; PATIENT WAS FASTINGPERFORMED BY: [facility] Dqqeiv8842 [facility] [id number] HORMONE) (69562) TSH 0.982 {uIU/mL} (Normal) Range: 0.450-4.500 5-Pcr-697148:02 Lipid Profile Comments: Order Date: 12/04/16Order Info: [id number] - *Hepatic Function PanelOrder Date: 12/04/16Order Info: [id number] - *Lipid Profile CC PCPComments: 12 hours fasting, may have water.[place] [address] [place], [place], [address] VLDL 36 mg/dL (Normal) Range: 5-40 LDL [...] 200-240 mg/dL Borderline >240 mg/dL High Risk 0-Eqg-752067:02 Liver Profile Comments: Order Date: 12/04/16Order Info: [id number] - *Hepatic Function PanelOrder Date: 12/04/16Order Info: [id number] - *Lipid Profile CC PCPComments: 12 hours fasting, may have water.[place] [address] [place], [place], [address] D BILI 0.07 mg/dL (Normal) Range: 0.00-0.30 T BILI 0.30 mg/dL (Normal) Range: 0.20-1.00 ALT 21 U/L (Normal) Range: 12-78 ALK P 112 U/L (Normal) Range: 45-117 AST 19 U/L (Normal) Range: 15-37 GLOB 3.8 g/dL (Abnormal) Range: 2.3-3.5 ALB 3.4 g/dL (Normal) Range: 3.4-5.0 T PROT 7.2 g/dL (Normal) Range: 6.4-8.2 82-Fip-786133:29 URINE RANDELL CULTURE-ZEINAB COL Comments: PATIENT NOT FASTINGPERFORMED BY: ChiasmaGallup Indian Medical CenterZwhqww3785 [facility] [id number] Information: SRC:UC COUNT (74183) Result 1 MUG (Normal) Comments: Mixed urogenital flora25,000-50,000 colony forming units per mL Urine Final report (Normal) Culture,Comprehensive 76-Jdi-745806:53 Urinalysis, Office (96551) UA - LEUKOCYTE ESTERASE Small (Normal) UA - NITRITE Negative (Normal) URINE UROBILINGN ZEINAB TIMED Normal mg/dL (Normal) UA - PROTEIN Negative mg/dL (Normal) UA - PH 7 (Normal) UA - BLOOD Negative (Normal) UA - SPECIFIC GRAVITY 1.020 (Normal) UA - KETONES Negative mg/dL (Normal) UA - BILIRUBIN Small (Normal) UA - GLUCOSE Negative (Normal) 85-Fgd-875881:51 Blood Glucose , Office (39815) Comments: 169 Blood Glucose , Office 169 (Normal) :52 HgA1C , Office (64553) Comments: 7.0 HgA1C , Office 7.0 % (Normal) Range: 4.6 - 7.1 :22 URINE RANDELL CULTURE-IDENTIFICATN Comments: PATIENT NOT FASTINGPERFORMED BY: LabHurley Medical Center6370 [facility] [id number] Information: SRC:UC (33877) Result 1 MUG (Normal) Comments: Mixed urogenital flora10,000-25,000 colony forming units per mL Urine Final report (Normal) Culture,Comprehensive 00-Rax-016937:05 Urinalysis, Office (92645) UA - LEUKOCYTE ESTERASE Negative (Normal) UA - NITRITE Negative (Normal) URINE UROBILINGN ZEINAB TIMED Normal mg/dL (Normal) UA - PROTEIN 30 mg/dL (Normal) UA - PH 6 (Abnormal) UA - BLOOD non-hemolyzed trace (Normal) UA - SPECIFIC GRAVITY 1.020 (Normal) UA - KETONES Negative mg/dL (Normal) UA - BILIRUBIN Negative (Normal) UA - GLUCOSE 100 (Abnormal) :42 HgA1C , Office (14544) HgA1C , Office 6.2 % (Normal) Range: 4.6 - 7.1 :42 Blood Glucose , Office (79800) Blood Glucose , Office 137 (Normal) :01 TSH (THYROID STIMULATING Comments: PATIENT NOT FASTINGPERFORMED BY: Chiasma Jovie [facility] [id number] HORMONE) (55172) TSH 1.820 {uIU/mL} (Normal) Range: 0.450-4.500 :03 HEPATIC FUNCTION PANEL Comments: PATIENT NOT FASTINGPERFORMED BY: Klood Jovie [facility] [id number] (19712) ALT (SGPT) 15 [iU]/L (Normal) Range: 0-32 AST (SGOT) 23 [iU]/L (Normal) Range: 0-40 Alkaline Phosphatase, S 95 [iU]/L (Normal) Range: 39-117 Bilirubin, Direct 0.12 mg/dL (Normal) Range: 0.00-0.40 Bilirubin, Total 0.3 mg/dL (Normal) Range: 0.0-1.2 Albumin, Serum 4.3 g/dL (Normal) Range: 3.6-4.8 Protein, Total, Serum 7.3 g/dL (Normal) Range: 6.0-8.5 :03 ZGGRT-NYZCMRJLXWX-RTQRU (31898) Comments: PATIENT NOT FASTINGPERFORMED BY: Klood Bwvlft8130 [facility] [id number] AFP, Serum, Tumor Marker 2.8 ng/mL (Normal) Range: 0.0-8.3 Comments: Rosmery ECLIA methodology :03 HEPATITIS PANEL (95319) Comments: PATIENT NOT FASTINGPERFORMED BY: Chiasma Jovie [facility] [id number] Hep C Virus Ab <0.1 {s/co_ratio} (Normal) Range: 0.0-0.9 Comments: Negative: < 0.8 Indeterminate: 0.8 - 0.9 Positive: > 0.9 . The CDC recommends that a positive HCV antibody result be followed up with a HCV Nucleic Acid Amplification test (563003). Hep B Core Ab, IgM Negative (Normal) HBsAg Screen Negative (Normal) Hep A Ab, IgM Negative (Normal) :58 CBC W/Diff, Automated Comments: CBCD FOR DR CHATMANBenjamin Stickney [facility] [place] [address] [place], [address] Absolute Lymph 1.84 {X10_3/ul} (Normal) Range: 0.83-4.51 [...] Comments: Order Date: 05/14/16Interface Comments: Reason:Order Date: 05/14/16[facility] [address] [place], [id number] T4 THYROXIN 11.6 ug/dL (Normal) Range: 4.8-13.9 :58 Thyroid Stim Hormone (TSH) Comments: Order Date: 05/14/16Interface Comments: Reason:Order Date: 05/14/16[facility] [address] [place], [address] TSH 1.96 {uIU/mL} (Normal) Range: 0.358-3.74 :11 Urinalysis, Office (89266) UA - LEUKOCYTE ESTERASE Small (Normal) UA - NITRITE Negative (Normal) URINE UROBILINGN ZEINAB TIMED Normal mg/dL (Normal) UA - PROTEIN 30 mg/dL (Normal) UA - PH 6 (Abnormal) UA - BLOOD Negative (Normal) UA - SPECIFIC GRAVITY 1.010 (Normal) UA - KETONES Negative mg/dL (Normal) UA - BILIRUBIN Negative (Normal) UA - GLUCOSE Negative (Normal) :50 Basic Metabolic Profile (BMP) Comments: [facility] [address] [place], [id number] GAP 7 (Normal) Range: 5-15 CO2 33.0 [...] 100 mg/dL (Normal) Range: 70-110 :48 MAGNESIUM (53176) Comments: PATIENT NOT FASTINGPERFORMED BY: LabCoAcuteCare Health SystemBjnndc3163 [facility] [id number] Magnesium, Serum 1.6 mg/dL (Normal) Range: 1.6-2.3 :48 TSH (THYROID STIMULATING Comments: PATIENT NOT FASTINGPERFORMED BY: Lab[facility] Mqvsnn3574 [facility] [id number] HORMONE) (66530) TSH 6.340 {uIU/mL} (Abnormal) Range: 0.450-4.500 :48 URIC ACID BLOOD (56160) Comments: PATIENT NOT FASTINGPERFORMED BY: LabCoGallup Indian Medical CenterJdbcim9810 [facility] [id number] Uric Acid, Serum 6.1 mg/dL (Normal) Range: 2.5-7.1 Comments: Therapeutic target for gout patients: <6.0 :09 Blood Glucose , Office (95307) Blood Glucose , Office 116 (Normal) :09 HgA1C , Office (34174) HgA1C , Office 6.7 % (Normal) Range: 4.6 - 7.1 :19 Basic Metabolic Profile (BMP) Comments: Order Date: 03/12/16OV Order #: [id number] Marion [facility] Hospital [address] [place], [address] GAP 7 (Normal) Range: 5-15 CO2 29.0 [...] 7-18 GLU 107 mg/dL (Normal) Range: 70-110 85-Ecy-483633:19 T4 Total, Thyroxin Comments: Order Date: 03/12/16 Order #: [id number] Hospital [address] [place], [place], [address] T4 THYROXIN 9.4 ug/dL (Normal) Range: 4.8-13.9 :19 Thyroid Stim Hormone (TSH) Comments: Order Date: 03/12/16 Order #: [id number] Hospital [address] [place], [place], [address] TSH 5.44 {uIU/mL} (Abnormal) Range: 0.358-3.74 :49 Aerobic Bacterial Culture Comments: PATIENT NOT FASTINGPERFORMED BY: [facility] Vwulxa6842 [facility] [id number] Information: RT AXILLA Result 1 MRSA (Abnormal) [...] (Normal) Comments: PATIENT NOT FASTINGPERFORMED BY: [facility] Tvqtmp7864 [place] [id number] Information: NASAL 5:49 Culture 81-Noa-945285:20 Basic Metabolic Profile (BMP) Comments: [facility] [address] [place], [place], [address] GAP 7 (Normal) Range: 5-15 CO2 29.0 [...] A.D.A. criteria. :02 Blood Glucose , Office (73829) Blood Glucose , Office 137 (Normal) :54 Urine Drug Screen (Office - WNL (Normal) Comments: pos for oxy, all else neg Urine Drug Screen 6 Panel) Comments: All negative except Oxy (72792) :52 HgA1C , Office (93868) Comments: 7.3 HgA1C , Office 7.3 % (Abnormal) Range: 4.6 - 7.1 4-Vtk-618033:43 Basic Metabolic Profile (BMP) Comments: DR URBINA ORDERED BMPDR MALCOLM ORDERED LIVER LIPIDWOhioHealth Marion General Hospital [address] [place], [address] GAP 3 (Abnormal) Range: 5-15 CO2 33.0 mmol/L (Abnormal) Range: 21.0-32.0 CL 102 mmol/L (Normal) Range: 98-107 K 3.4 mmol/L (Abnormal) Range: 3.5-5.1 Comments: ADDENDA: Denisse at [facility] aware of potassium level NA [...] 7-18 GLU 101 mg/dL (Normal) Range: 70-110 1-Xea-441593:43 Lipid Profile Comments: DR URBINA ORDERED BMPDR MOODISPAW ORDERED LIVER LIPIDMckitrick Hospital [address] [place], [address] VLDL 26 mg/dL (Normal) [...] 200-240 mg/dL Borderline >240 mg/dL High Risk 5-Wtq-645044:43 Liver Profile Comments: [address] URBINA ORDERED BMPDR MOODISPAW ORDERED LIVER LIPIDMckitrick Hospital [address]gi[address] [place], [address] D BILI 0.14 mg/dL (Normal) Range: 0.00-0.30 T BILI 0.40 mg/dL (Normal) Range: 0.20-1.00 ALT 16 U/L (Normal) Range: 12-78 ALK P 112 U/L (Normal) Range: 50-136 AST 19 U/L (Normal) Range: 15-37 GLOB 3.9 g/dL (Abnormal) Range: 2.3-3.5 ALB 3.0 g/dL (Abnormal) Range: 3.4-5.0 T PROT 6.9 g/dL (Normal) Range: 6.4-8.2 :02 Blood Glucose , Office (08765) Blood Glucose , Office 160 (Normal) :37 HgA1C , Office (37645) Comments: 7.2 HgA1C , Office 7.2 % (Abnormal) Range: 4.6 - 7.1 :24 MRSA Culture (71731) Comments: [facility] [address] [place], [place], [address] MRSA RESULT Negative (Normal) :59 Metabolic Panel, Basic Comments: send to Dr.Masroor Urbina; PATIENT NOT FASTINGPERFORMED BY: LabCoAcuteCare Health SystemNqwlmd9931 [facility] [id number] Information: [id number] (07100) Calcium, Serum 10.7 mg/dL (Abnormal) Range: 8.7-10.3 [...] Glucose, Serum 182 mg/dL (Abnormal) Range: 65-99 0-Lfn-931794:09 MRSA Culture (06683) Comments: [facility] [address] [place], [address] MRSA RESULT POSITIVE (Abnormal) :39 Lipid Profile Comments: [facility] [address] [place], [id number] VLDL 23 mg/dL (Normal) Range: 5-40 LDL [...] mg/dL High Risk :39 Liver Profile Comments: [facility] [address] [place], [address] ; non-emergent and handled [...] Range: 6.4-8.2 :39 T4 Total, Thyroxin Comments: [place] [address] [place], [address] T4 THYROXIN 10.9 ug/dL (Normal) Range: 4.8-13.9 :39 Thyroid Stim Hormone (TSH) Comments: [facility] [address] [place], [address] TSH 3.63 {uIU/mL} (Normal) Range: 0.358-3.74 6-Tfh-148489:13 LIPID PANEL (36904) Comments: PATIENT WAS FASTINGPERFORMED BY: [facility]6370 [facility] [id number] LDL/HDL Ratio 1.2 {ratio_units} (Normal) Range: 0.0-3.2 [...] Cholesterol, Total 160 mg/dL (Normal) Range: 100-199 3-Typ-434718:13 CBC W/AUTO DIFF WBC Comments: PATIENT WAS FASTINGPERFORMED BY: [facility]6370 [facility] [id number] Information: [id number] (09564) Immature Grans (Abs) 0.0 {x10E3/uL} (Normal) Range: [...] 3.77-5.28 WBC 4.5 {x10E3/uL} (Normal) Range: 3.4-10.8 2-Ade-017261:13 METABOLIC PANEL, COMPREHENSIVE Comments: PATIENT WAS FASTINGPERFORMED BY: LabCoAcuteCare Health SystemYueyni7182 [facility] [id number] (09434) ALT (SGPT) 8 [iU]/L (Normal) Range: 0-32 [...] Glucose, Serum 109 mg/dL (Abnormal) Range: 65-99 4-Oty-061756:15 Basic Metabolic Profile (BMP) Comments: [facility] [address] [place], [place], [address] GAP 7 (Normal) Range: 5-15 CO2 30.0 [...] 200 mg/dLsuggests DIABETES MELLITUS per A.D.A. criteria. 8-Juo-581566:15 CBC W/Diff, Automated Comments: [facility] [address] [place], [place], [address] Absolute Lymph 0.95 {X10_3/ul} (Normal) Range: 0.83-4.51 [...] K/mm3 (Normal) Range: 4.4-11.0 :31 LIPID PANEL (20909) Comments: PATIENT WAS FASTINGPERFORMED BY: LabCoAcuteCare Health SystemUaxfdb5879 [facility] [id number]; non-emergent till apt LDL/HDL Ratio 1.6 {ratio_units} [...] Cholesterol, Total 219 mg/dL (Abnormal) Range: 100-199 71-Whr-574749:31 CBC with auto diff Comments: PATIENT WAS FASTINGPERFORMED BY: LabCoAcuteCare Health SystemKrudyz1303 [facility] [id number] Information: [id number] (06147) Immature Grans (Abs) 0.0 {x10E3/uL} (Normal) Range: [...] CREATININE RATIO Comments: PATIENT WAS FASTINGPERFORMED BY: LabCoAcuteCare Health SystemWvbgfq2239 [facility] [id number] (83912) AND (05172) Microalb/Creat Ratio 93.7 {mg/g_creat} (Abnormal) Range: 0.0-30.0 Microalbumin, Urine 196.4 ug/mL (Abnormal) Range: 0.0-17.0 Creatinine, Urine 209.7 mg/dL (Normal) Range: 15.0-278.0 :31 METABOLIC PANEL, COMPREHENSIVE Comments: PATIENT WAS FASTINGPERFORMED BY: [employer]6370 [facility] [id number] (92189) ALT (SGPT) 20 [iU]/L (Normal) Range: 0-32 [...] Glucose, Serum 120 mg/dL (Abnormal) Range: 65-99 02-Owv-562597:31 Hemoglobin Glyclated (HGB A1C) Comments: PATIENT WAS FASTINGPERFORMED BY: [employer]70 [facility] [id number] (66608) Hemoglobin A1c 7.6 % (Abnormal) Range: 4.8-5.6 Comments: . Pre-diabetes: 5.7 - 6.4 Diabetes: >6.4 Glycemic control for adults with diabetes: <7.0 44-Vql-504633:30 Urinalysis, Complete Comments: Order Date: 07/18/15How was Urine Obtained? CLEAN [facility] [address] [place], [place], [address] MUCUS, URINE 0 SEEN {/hpf} (Normal) BACTERIA [...] (Abnormal) CLARITY Clear (Normal) COLOR Yellow (Normal) 04-Efw-957094:43 CBC W/Diff, Automated Comments: [facility] [address] [place], [place], [address] PATH REV May foll (Normal) SMEAR COMMENT [...] 4.2-5.4 WBC 15.1 K/mm3 (Abnormal) Range: 4.4-11.0 03-Dmk-955297:43 Comprehensive Metabolic Profil Comments: [facility] [address] [place], [place], [address] GAP 8 (Normal) Range: 5-15 CO2 33.0 [...] 6H after initial specimenWOhioHealth Marion General Hospital [address]qh[address] [place], [place], [address] LACTIC ACID 1.7 mmol/L (Normal) Range: 0.4-2.0 :43 Magnesium Comments: [facility] [address] [place], [place], [address](337) MG 1.3 mg/dL (Abnormal) Range: 1.8-2.4 :43 Partial Thromboplast Time Comments: [facility] [address] [place], [place], [phone] PTT 31.4 s (Normal) Range: 24.1-36.2 :43 Phosphorus Comments: [facility] [address] [place], [address] PHOS 1.0 mg/dL (Abnormal) Range: 2.5-4.9 Comments: Critical Result(s) Called at: 17:06:16 07/18/2015 by:Stacey ibarra rn 40-Itp-751878:43 Prothrombin Time w/INR Comments: [facility] [address] [place], [place], [address](379) INR 0.9 (Normal) PROTIME 12.8 s (Normal) [...] with abnormal findings in adult : Reviewed Hand Upper And Bottom Lacer Letter Indication: Encounter for annual general medical [...] - Strool Based DNA Test, CRC SCREEN (56488)Indication: Encounter for screening for malignant neoplasm of colon (Renamed from Special screening for malignant neoplasms, colon) On: 31-Svr-144678:05 Request FECAL OCCULT- Tubes sent home (80558)Indication: Encounter for screening for malignant neoplasm of colon (Renamed from Special screening for malignant neoplasms, colon) On: 21-Ydi-559371:09 Request Lipid Panel (83159)Indication: Diabetes mellitus type 2, insulin dependent On: 78-Bhs-683339:08 Request Comments: around January Metabolic Panel, Comprehensive (48302)Indication: Diabetes mellitus type 2, insulin dependent On: 54-Jyk-633511:08 Request Comments: around January CBC, Platelets & Auto Diff (67197)Indication: Diabetes mellitus type 2, insulin dependent On: 56-Zjn-139261:08 Request Comments: around January TSH (40410)Indication: Diabetes mellitus type 2, insulin dependent On: 74-Qgu-331598:08 Request Comments: around January Rapid Flu (50079 x 2)Indication: Unspecified Diagnosis On: 91-Lup-34057:33 Request CBC & PLATELETS (AUTO) (29034)Indication: Abdominal pain On: 2-Ivd-083218:57 Request CULTURE, NOSE (83786)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 On: :31 Request Comments: check for MRSA MRSA Culture (34608)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 On: :23 Request Comments: rt axila HgA1C , Office (66663)Indication: Diabetes mellitus type 2, insulin dependent On: 20-Tdp-202892:21 Request Urinalysis, Office (47816)Indication: History of MRSA infection On: 41-Dgw-032408:42 Request Hemoglobin Glyclated (HGB A1C) (28600)Indication: Diabetes mellitus type 2, uncontrolled On: 76-Bdx-175674:46 Request MICROALBUMIN: CREATININE RATIO (59119) AND (30206)Indication: Hypertensive heart disease without heart failure On: 68-Qlb-402535:46 Request Planned Encounters Medical; 3 Month FU - On: 28-Jul-2018 13:30 Comprehensive Internal Medicine Elsa Chopra CNP, CNP, Mary E Planned Procedures Overnight Pulse OX (97327)By: On: 30-Jun-2018 Intent Lee Ann Schafer DO SPIROMETRY PERFORMED (27601)By: On: 25-Jun-2018 Intent Visit, Nurse SPIROMETRY PERFORMED (98549)By: On: 25-Jun-2018 Intent Visit, Nurse SIX MINUTE WALK TEST (64280)By: On: 25-Jun-2018 Intent Visit, Nurse Flu Vaccine (Quadrivalent) 74435Wc: On: 20-May-2018 Intent Karly Chandra DEXA SCAN AXIAL SKELETON (44748)By: On: 18-Dec-2017 Intent Elsa Chopra CNP, CNP, Mary E SCREENING DIGITAL TOMOSYNTHESIS OF On: 18-Dec-2017 Intent BREAST (40391)By: Elsa Chopra CNP, CNP, Mary E Flu Vaccine (Quadrivalent) 79224Yd: On: 11-Jun-2017 Intent Tatianaabelardomickey MCKINLEYElsa Tatianaabelardomickey MCKINLEY [place] Comments: InfluenzaLot #[id number]-L dltd, IMDose prefilled syringeVIS and ABN signedgiven by:GENARO blackwood PHYSICAL THERAPY TREATMENT On: 11-Dec-2016 Intent (01349)By: Adelita Doshi LPN PHYSICAL THERAPY EVALUATION On: 11-Dec-2016 Intent (16098)By: Elsa Chopra CNP, CNP [place] Toradol Injection, 30 mg On: 10-Dec-2016 Intent ([id number])By: Elsa Chopra CNP, CNP [place] Radiology - Hip - RightBy: Nav On: 10-Dec-2016 Intent ARLEN OneliaMarly Chopra CNP [place] Aerosol Treatment (59813)By: Tico On: 16-Oct-2016 Intent Adelita LAM Flu Vaccine (Quadrivalent) [id number]: On: 11-Jul-2016 Intent Elsa Chopra CNP, CNP [place] Comments: FLUlot: [id number]:01/16site:Lt deltoidroute:IMdose:.5mlDEMICK, [place] Ultrasound - Abdomen CompleteBy: On: 03-Jul-2016 Intent Elas Chopra CNP, CNP [place] Radiology - KUBBy: Elsa Chopra CNP On: 03-Jul-2016 Elsa Youssef CNP DRAIN/INJECT SMALL JOINT OR BURSA On: 18-May-2016 Intent ()By: Elsa Chopra CNP Comments: to left wrist joint 1/2 cc kenalog, 1/2 cc marcaine. Kenalog lot #[id number] exp Marcain lot [id number] ex Elsa MCKINLEY MAMMOGRAM, SCREENING, BOTH BREAST On: 11-May-2016 Intent (67278)By: Elsa Chopra CNP, CNP, Mary E Radiology [...] mellitus without complication) : DISCONTINUED - URINALYSIS (63365) Indication: Diabetes mellitus type II, controlled, with no complications (Renamed from Controlled type 2 diabetes mellitus without complication) CKD (chronic kidney disease), stage III : DISCONTINUED - MICROALBUMIN: CREATININE RATIO (52329) AND (25849) Indication: CKD (chronic kidney disease), stage III Diabetes mellitus type II, controlled, with no complications (Renamed from Controlled type 2 diabetes mellitus without complication) : DISCONTINUED - CBC, PLATELETS & AUT DIFF (13815) Indication: Diabetes mellitus type II, controlled, with no complications (Renamed from Controlled type 2 diabetes mellitus without complication) Diabetes mellitus type II, controlled, with no complications (Renamed from Controlled type 2 diabetes mellitus without complication) : DISCONTINUED - METABOLIC PANEL, COMPREHENSIVE (20446) Indication: Diabetes mellitus type II, controlled, with no complications (Renamed from Controlled type 2 diabetes mellitus without complication) Diabetes mellitus type II, controlled, with no complications (Renamed from Controlled type 2 diabetes mellitus without complication) : DISCONTINUED - TSH (91845) Indication: Diabetes mellitus type II, controlled, with [...] dependent : DISCONTINUED - METABOLIC PANEL, BASIC (45645) Indication: Diabetes mellitus type 2, insulin dependent [...] patient does not have durable power of package sealer machine or living will. The patient has noticed getting bored, poor spirits most of time and lack of energy. Other providers contributing to the lyndsey bolton's care are tank farm operator () and urologist (). Note for [...] and is sleeping poorly. Patient has been [employer] End: 18-Dec-2017 14:15 pliant with instructions. Current [...] and is sleeping poorly. Patient has been [employer]: 18-Sep-2017 13:50 pliant with instructions. Current [...] - Reason for ER visit: note: (surgery [facility]. ). The patient feels well [...] MRSA. She has had pre-op testing at [facility] on 10-14-2015, for Lumbar microdecompression for 10-24-2015 Blood work. Travel Registered Nurse Icu Dr. Dahl for papers to be signed [...] 19-Jul-2015 22:21 - sharp pain- went to [facility] ER). Current medication use: no side effects [...] surgeon- - recently went to er at [facility] on jul 14 - she was having [...]
--- OUTSIDE RECORDS SUMMARY | 2018-09-25 14:40 | XMS RPT_ITS | Continuity of Care Document ---
:1950 Author Organization [facility] Address [address] [place] [address] Phone Care Team Providers Name Role Phone Nav ARLENElsa E Unavailable Malcolm STANLEY, Casey Florian Unavailable Linden DO , Dr. Aaron Diaz Unavailable John BatistaAnnalisa Unavailable Dr. Abimael Ag Unavailable Kirby STANLEY, Jared Galeano Unavailable Pascale Boston Unavailable Slarb TRUCK GUARD, Adelita Unavailable Unavailable Long TRUCK GUARD, Dora L Unavailable Unavailable Karly Chandra Unavailable [...] 585.3) Comments: follows with Dr. Munguia in [place], seen for sarcoidosis currently, stableGFR 42 Status: [...] on wean of steroid Scale 201-250. 5 -390 8 cwfiz824-196 10 ijntz308-180 12 units>401 15 unitsad ding metformin not [...] given in L arm subcutaneously paitent tolerated wellLOT#[id number]#2020 NOV 06 Status: Active Postmenopausal (Renamed from Postmenopausal status) (Z78.0, V49.81) Status: Active Pregnancies () Comments: 1. 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) Comments: Sees Ciara at [facility] for sarcoid in bone marrow just saw [...] Quantity: 120 {Tablet} Refills: 6 Ordered:27-May-2018 Tatianaabelardomickey CMKINLEY Elsa Leblancmickey MCKINLEY Elsa Luke Start : [...] MOY Start : 18-Jul-2015 Active VITAMIN D3, 38511QLPP (Oral Capsule) 1 (one) Capsule Capsule once [...] q12hrs (100 MG) End : 05-Aug-2015 Discontinued Comments:[facility] MUPIROCIN, 2% (External Ointment) 1 (one) [...] : 05-Aug-2015 Discontinued Comments:1,250mg IV q24hrs x 65xvpw1,500mg IV q24hrs #14 Allergies and Adverse Reactions [...] Comments: was seeing Dr. Munguia's partner in [place] Dr. Morel, gfr 43%, has proteinuria Status: [...] Visit Report Result: Comments: See Note; NOTES: [facility] 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 Atherosclerosis of hoopa coronary artery of hoopa heart without angina pectoris I25.10 Mild Plan [...] for an outpatient visit in [facility] 9 months unless needed sooner. Thank you for allowing me to participate in the care of your patient. Please don't hesitate to call if any issues arise. This note was generated using a voice [email or web address] system and there may be incorrect words, spelling or punctuation that were not noted when reviewing the office note prior to saving. Follow Up 9 Months Coding Level of Care Code Off glen rodríguez,kelly l 4 Diagnoses Atherosclerosis of hoopa coronary artery of hoopa heart without angina pectoris I25.10 [place] vs. transplanted heart: hoopa heart Paroxysmal atrial fibrillation I48.0 Hyperlipidemia, u nspecified hyperlipidemia type E78.5 Hyperlipidemia type: unspecified Essential hypertension I10 Hypertension type: essential hypertension Long-term use of high-risk medication Z79.899 Coding Level of Care Code Off glen rodríguez,level 4 Diagnoses Atherosclerosis of hoopa coronary artery of hoopa heart without angina pectoris I25.10 [place] vs. transplanted heart: hoopa heart Paroxysmal atrial fibrillat ion I48.0 Hyperlipidemia, unspecified hyperlipidemia type E78.5 Hyperlipidemia type: unspecified Essential hypertension I10 Hypertension type: essential hypertension Long-term use of high-risk medicatio n Z79.899 02/17/18 1530 <Electronically signed by Casey Fowler MD> Date Casey Fowler MD Cosigner Signature: Date _ (if applicable) CC: Elsa Chopra NP 14-Feb-2018 SCREENING MAMM (CAD), BILAT Result: Comments: See Note; NOTES: [facility] Imaging Services [address] [place] [address] SCREENING MAMM (CAD), BILAT MR#: [id number] Acct: [id number] Name: SHREYAS KATHLEEN Rep #: [id number] : 1950 F 67 From: Elias Finn MD PCP: Elsa Chopra NP Status: REG CLI Study: SCREENING MAMM (CAD), BILAT Date of Exam: 02/14/18 Exam# [id number] Ordering Dr: Elsa Chopra MAMMO GRAPHY - [...] [facility] facility within 30 days. Approximately 10% of breast cancers are not detected by mammography. A normal mammogram should not delay biopsy of a clinically suspicious abnormality. [id number] Elect ronically Signed: Elias Finn MD at 8:30 EDT Tel [phone], Service support , CC: Elsa Chopra NP Support Dba: Signed 21-Jan-2018 Dexa Bone Density Study Result: Comments: See Note; NOTES: [facility] Imaging Services [address] [place] [address] Dexa Bone Density Study MR#: [id number] Acct: [id number] Name: SHREYAS KATHLEEN Rep #: [id number] : 1950 F 67 From: Elias Finn MD PCP: Elsa Chopra NP Status: REG CLI Study: Dexa Bone Density Study Date of Exam: 01/21/18 Exam# [id number] Ordering Dr: Elsa Chopra STUDY: DUAL E [...] Elias Finn MD at 15:36 EDT Tel [phone], Service support , CC: Elsa Chopra NP Support Dba: Signed 10-Dec-2016 Hip 2-3 Views with Pelvis Result: Comments: See Note; NOTES: [facility] Imaging Services [address] [place] [address] Verdana 4d Hip 2-3 Views with Pelvis MR#: [id number] Acct: [id number] Name: SHREYAS KATHLEEN Keira Rep #: [id number] : 1950 F 66 From: Herve Jimenez MD PCP: Elsa Chopra Status: REG CLI Study: Hip 2-3 Views with Pelvis Date of Exam: 12/10/16 Exam# [id number] Ordering Dr: Elsa Chopra STUDY : X-RAY [...] FACR at 11:31 EDT , Service support [phone], CC: Elsa Chopra Support Dba: Signed 05-Jul-2016 Abdomen Complete Result: Comments: See Note; NOTES: [facility] Imaging Services [address] [place] [address] Verdana 4d Abdomen Complete MR#: [id number] Acct: [id number] Name: SHREYAS KATHLEEN Keira Rep #: [id number] : 1950 F 66 From: Elias Finn MD PCP: Elsa Chopra Status: REG CLI Study: Abdomen Complete Date of Exam: 07/05/16 Exam# [id number] Ordering Dr: Elsa Chopra STUDY: ABDOMINAL ULTRASOUND [...] Elias Finn MD at 9:35 EDT Tel [phone], Service support [phone], CC: Elsa Chopra Support Dba: Signed 05-Jul-2016 Abdomen Single View Result: Comments: See Note; NOTES: [facility] Imaging Services [address] [place] [address] Verdana 4d Abdomen Single View MR#: [id number] Acct: [id number] Name: SHREYAS KATHLEEN Rep #: [id number] : 1950 F 66 From: Elias Finn MD PCP: Elsa Chopra Status: REG CLI Study: Abdomen Single View Date of Exam: 07/05/16 Exam# [id number] Ordering Dr: Elsa Chopra STUDY: X-RA Y [...] of the L1 vertebrae. ORDER # : [id number] RAD/Abdomen Single View IMPRESSION: Moderate amount of fecal material is seen in the colon. Electronically Signed: Elias Finn MD at 10:34 EDT Tel [phone], Service sup port [phone], CC: Elsa Chopra Support Dba: Signed 18-May-2016 Bilat Scrn Digital AND CAD Result: Comments: See Note; NOTES: [facility] Imaging Services [address] [place] [address] Verdana 4d Bilat Scrn Digital AND CAD MR#: [id number] Acct: [id number] Name: JACINTO KATHLEEN Rep #: [id number] : 1950 F 65 From: Elias Finn MD PCP: Elsa Chopra Status: REG CLI Study: Bilat Scrn Digital AND CAD Date of Exam: 05/18/16 Exam# [id number] Ordering Dr: Elsa Chopra MAMMOGRAPHY - BILATERAL [...] biopsy of a clinically suspicious abnor mality. [id number] Electronically Signed: Elias Finn MD at 12:53 EDT Tel [phone], Service support [phone], CC: Elsa Chopra Support Dba: Signed 14-Feb-2016 Shoulder min 2 Views Result: Comments: See Note; NOTES: [facility] Imaging Services [address] [place] [address] Oscar 4d Shoulder min 2 Views MR#: [id number] Acct: [id number] Name: SHREYAS KATHLEEN Rep #: [id number] : 1950 F 65 From: Herve Jimenez MD PCP: Madeline Florez DO Status: REG CLI Study: Shoulder min 2 Views Date of Exam: 02/14/16 Exam# [id number] Ordering Dr: Pascale Boston DO STUDY: X-RAY [...] FACR at 14:50 EDT , Service support [phone], Fax RAD/Shoulder min 2 Views IMPRESSION: Bilateral of the acromioclavicular joint, otherwise normal x-ray examination of the shoulder. Electronically Signed: Herve Jimenez MD, FACR at 14:50 EDT , Service support [phone], CC: Pascale Boston DO; Madeline Florez DO Support Dba: Signed 21-Oct-2015 Spirometry (54398) Comments: mod restriction Result: 19-Sep-2015 Chest PA and Lateral Result: Comments: See Note; NOTES: [facility] Imaging Services [address] [place] [address] Verdana 4d Chest PA and Lateral MR#: [id number] Acct: [id number] Name: SHREYAS KATHLEEN Rep #: [id number] : 1950 F 65 From: Elias Finn MD PCP: Madeline Florez DO Status: REG CLI Study: Chest PA and Lateral Date of Exam: 09/19/15 Exam# [id number] Ordering Dr: Madeline Florez DO STUDY: X-RAY [...] Elias Finn MD at 13:58 EST Tel [phone], Service support [phone], RAD/Chest PA and Lateral IMPRESSION: Stable examination. No acute abnormality is seen. Electronically Doris d: Elias Finn MD at 13:58 EST Tel [phone], Service support [phone], CC: Madeline Florez DO Support Dba: Signed 25-Aug-2015 Spine Lumbar (Routine) Result: Comments: See Note; NOTES: [facility] Imaging Services [address] [place] [address] Verdana 4d Spine Lumbar (Routine) MR#: [id number] Acct: [id number] Name: SHREYAS MAJOR Rep #: [id number] : 1950 F 65 From: Herve Jimenez MD PCP: Madeline Florez DO Status: REG CLI Study: Spine Lumbar (Routine) Date of Exam: 08/25/15 Exam# [id number] Ordering Dr: ELIZABETH DE LEON M.D. STUDY: [...] FACR at 17:43 EST , Service support [phone], CC: ELIZABETH DE LEON M.D.; Madeline Florez DO Support Dba: Signed 25-Aug-2015 Spine Thoracic (Routine) Result: Comments: See Note; NOTES: [facility] Imaging Services [address] [place] [address] 4d Spine Thoracic (Routine) MR#: [id number] Acct: [id number] Name: SHREYAS SHARIF Keira Rep #: [id number] : 1950 F 65 From: Herve Jimenez MD PCP: Madeline Florez DO Status: REG CLI Study: Spine Thoracic (Routine) Date of Exam: 08/25/15 Exam# [id number] Ordering Dr: ELIZABETH RUIZ M.D. STUDY: MRI [...] FACR at 17:45 EST , Service support [phone], CC: ELIZABETH DE LEON M.D.; Komal Florez DO Support Dba: Signed 17-Aug-2015 Chest PA and Lateral Result: Comments: See Note; NOTES: [facility] Imaging Services [address] [place] [address] Verdana 4d Chest PA and Lateral MR#: [id number] Acct: [id number] Name: SHREYAS KATHLEEN Rep #: [id number] : 1950 F 65 From: Elias Finn MD PCP: Madeline Florez DO Status: REG CLI Study: Chest PA and Lateral Date of Exam: 08/17/15 Exam# [id number] Ordering Dr: Madeline Florez DO STUDY: X-RAY [...] Elias Finn MD at 11:09 EST Tel [phone], Service support [phone], Fax RAD/Chest PA and Lateral IMPRESSION: Residual changes persist in the right middle lobe and there has been some improvement. Further followup is recommended. Electr onically Signed: Elias Finn MD at 11:09 EST Tel [phone], Service support [phone], CC: Madeline Florez DO Support Dba: Signed 12-Aug-2015 Discharge Instruction Result: Comments: See Note; NOTES: [facility] Medical Records Department [address] [place] [address] Discharge Instruction 08/10/15 1702 MR#: [id number] Acct: [id number] Name: SHREYAS KATHLEEN Rep #: [id number] : 1950 65 From: Denny Bone MD [...] problems, contact your doctor. Call [facility] ([phone]) or report to the closest Emergency Room. Call 911 if necessary. 08/12/15 1502 <Elect ronically signed by Denny Bone MD> Date Denny Bone MD Cosigner Signature (If Indicated): Date CC: Madeline Florez DO 12-Aug-2015 Emergency Department Summary Result: Comments: See Note; NOTES: [facility] Medical Records Department [address] [place] [address] Emergency Department Summary MR#: [id number] Acct: [id number] Name: SHREYAS KATHLEEN Rep #: [id number] : 1950 65 From: Denny Bone MD PCP: Madeline lForez DO Status: DEP ER DATE OF SERVICE: [...] the patient had blood cultures obtained at [facility] and they were called to Dr. [...] Nacho Ramirez C: Madeline Bonilla MD T: [facility] JOB: [id number] 08/12/15 1502 <Electronically signed by Denny Bone MD> Date Denny Bone MD Cosigner Signature (If Indicated): Date ___ CC: Madeline Florez DO; Katelyn Arenas MD Date Dictated: 08/10/151708 Date Transcribed: 08/10/151708 Support Dba: Signed Social History Name Dates Details No [...] kg/m2 Body Surface Area Calculated 1.85 m2 86-Upu-710133:20 Temperature 97.8 f Comments: Method: Temporal Pulse [...] kg/m2 Body Surface Area Calculated 1.97 m2 48-Bmy-386888:34 BP Systolic 130 mm[Hg] Comments: Patient Position: Sitting BP Diastolic 80 mm[Hg] Comments: Patient Position: Sitting 74-Usb-245201:03 Temperature 98 f Comments: Method: Temporal Pulse [...] Comments: Jun 19; PATIENT WAS FASTINGPERFORMED BY: [facility] RiverWybfcf2596 [facility] [id number] (15691) AND (86451) Alb/Creat Ratio 266.9 {mg/g_creat} (Abnormal) Range: 0.0-30.0 Albumin, Urine 168.7 ug/mL (Normal) Creatinine, Urine 63.2 mg/dL (Normal) :00 Metabolic Panel, Comprehensive Comments: Jun 19; PATIENT WAS FASTINGPERFORMED BY: [facility] RiverAvtlpi2458 [facility] [id number] (13499) ALT (SGPT) 14 [iU]/L (Normal) Range: 0-32 [...] 8-27 Glucose 121 mg/dL (Abnormal) Range: 65-99 04-Syn-25209:00 HGB A1C (94142) Comments: June 19; PATIENT WAS FASTINGPERFORMED BY: [facility] [id number] Hemoglobin A1c 7.0 % (Abnormal) Range: 4.8-5.6 Comments: . Prediabetes: 5.7 - 6.4 Diabetes: >6.4 Glycemic control for adults with diabetes: <7.0 65-Jei-790215:33 ALKALINE PHOSPHATASE-ISOENZYM Comments: PATIENT NOT FASTINGPERFORMED BY: [facility] [id number] (82373) Intestinal Frac.: 0 % (Normal) Range: 0-18 Bone Fraction: 27 % (Normal) Range: 14-68 Liver Fraction: 73 % (Normal) Range: 18-85 Alkaline Phosphatase 89 [iU]/L (Normal) Range: 39-117 61-Avq-521853:33 CBC, Platelets & Auto Diff Comments: PATIENT NOT FASTINGPERFORMED BY: [facility] [id number] (71091) Immature Grans (Abs) 0.0 {x10E3/uL} (Normal) Range: [...] 3.77-5.28 WBC 5.9 {x10E3/uL} (Normal) Range: 3.4-10.8 74-Cmn-759890:22 HgA1C , Office (71772) Comments: 7.3 HgA1C , Office 7.3 % (Abnormal) Range: 4.6 - 7.1 93-Kfq-184454:22 Blood Glucose , Office (30955) Blood Glucose , Office 173 (Normal) 93-Iot-87217:40 Basic Metabolic Profile (BMP) Comments: SEND RESULTS OF BMP TO .[facility] [address] [place], [address] GAP 11 (Normal) Range: 5-15 CO2 27.0 [...] A.D.A. criteria.Please note revised GLUCOSE reference range pjtalzquw96/02/2018. 67-Whj-96119:40 Liver Profile Comments: SEND RESULTS OF BMP TO .[facility] [address] [place], [address] D BILI 0.09 mg/dL (Normal) Range: 0.00-0.30 T BILI 0.40 mg/dL (Normal) Range: 0.20-1.00 ALT 22 U/L (Normal) Range: 13-56 ALK P 103 U/L (Normal) Range: 45-117 AST 17 U/L (Normal) Range: 15-37 GLOB 4.0 g/dL (Normal) Range: 2.2-4.2 ALB 3.8 g/dL (Normal) Range: 3.2-5.0 T PROT 7.8 g/dL (Normal) Range: 6.4-8.2 16-Tzl-016757:41 CALCIFEDIOL (76423) Comments: PATIENT WAS FASTINGPERFORMED BY: [facility] RiverVlxnqp4446 [facility] [id number] Vitamin D, 25-Hydroxy 44.2 ng/mL (Normal) Range: 30.0-100.0 Comments: Vitamin D deficiency has been defined by the [place] of[place]icine and an Endocrine Society practice guideline as alevel of serum 25-OH vitamin D less than 20 ng/mL (1,2).The Endocrine Society went on to further define vitamin Dinsufficiency as a level between 21 and 29 ng/mL (2).1. IOM ([place] of [place]). 2010. Dietary reference intakes for calcium and D. [place]: The National Academies Press.2. Jacinto MF, Eddy NOGUEIRA, Quintin JAVED, et al. Evaluation, treatment, and prevention of vitamin D deficiency: an Endocrine Society clinical practice guideline. JCEM. 2010; 96(7):1911-30. 78-Ofl-009878:41 METABOLIC PANEL, Comments: PATIENT WAS FASTINGPERFORMED BY: [facility] RiverDjxgws5558 [facility] [id number] Information: [id number],B52957; OV 03/19 COMPREHENSIVE (37136) ALT (SGPT) 15 [iU]/L (Normal) Range: 0-32 [...] 8-27 Glucose 143 mg/dL (Abnormal) Range: 65-99 98-Wct-535486:31 Blood Glucose , Office (57199) Blood Glucose , Office 211 (Normal) 84-Woe-189869:31 HgA1C , Office (12741) HgA1C , Office 6.8 % (Normal) Range: 4.6 - 7.1 16-Xkc-312921:33 CBC, Platelets & Auto Diff Comments: PATIENT WAS FASTINGPERFORMED BY: [facility] RiverKcnkdq5152 [facility] [id number] (03907) Immature Grans (Abs) 0.0 {x10E3/uL} (Normal) Range: [...] 3.77-5.28 WBC 7.7 {x10E3/uL} (Normal) Range: 3.4-10.8 30-Tyx-970819:33 Lipid Panel (68336) Comments: PATIENT WAS FASTINGPERFORMED BY: APR Halhbo8265 [facility] [id number] LDL/HDL Ratio 0.9 {ratio} (Normal) Range: 0.0-3.2 [...] Panel, Comprehensive Comments: PATIENT WAS FASTINGPERFORMED BY: TURN8lin6370 [facility] [id number] (60067) ALT (SGPT) 18 [iU]/L (Normal) Range: 0-32 [...] CREATININE RATIO Comments: PATIENT WAS FASTINGPERFORMED BY: [facility] [id number] (40954) AND (76362) Alb/Creat Ratio 225.5 {mg/g_creat} (Abnormal) Range: 0.0-30.0 Albumin, Urine 112.5 ug/mL (Normal) Creatinine, Urine 49.9 mg/dL (Normal) :33 URINALYSIS (72915) Comments: PATIENT WAS FASTINGPERFORMED BY: [facility] [id number] Microscopic Examination See below: (Normal) Comments: Microscopic was indicated and was performed. Nitrite, Urine Negative (Normal) Urobilinogen,Semi-Qn 0.2 mg/dL (Normal) Range: 0.2-1.0 Bilirubin Negative (Normal) Occult Blood Negative (Normal) Ketones Negative (Normal) Glucose Negative (Normal) Protein Trace (Normal) WBC Esterase 2+ (Abnormal) Appearance Clear (Normal) Urine-Color Yellow (Normal) pH 6.5 (Normal) Range: 5.0-7.5 Specific [place] 1.014 (Normal) Range: 1.005-1.030 :33 TSH (55441) Comments: PATIENT WAS FASTINGPERFORMED BY: [facility] [id number] TSH 3.870 {uIU/mL} (Normal) Range: 0.450-4.500 11-Aaz-005432:33 Microscopic Examination Comments: PATIENT WAS FASTINGPERFORMED BY: [facility] [id number] Bacteria Few (Normal) Mucus Threads Present (Normal) Cast Type Hyaline casts (Normal) Casts Present {/lpf} (Abnormal) Epithelial Cells (non renal) >10 {/hpf} (Abnormal) Range: 0 - 10 RBC 0-2 {/hpf} (Normal) Range: 0 - 2 WBC 11-30 {/hpf} (Abnormal) Range: 0 - 5 :57 HgA1C , Office (28653) Comments: 6.6 HgA1C , Office 6.6 % (Normal) Range: 4.6 - 7.1 :57 Blood Glucose , Office (87677) Blood Glucose , Office 211 (Normal) :53 HEPATIC FUNCTION PANEL Comments: PATIENT NOT FASTINGPERFORMED BY: [facility] [id number] (57090) ALT (SGPT) 13 [iU]/L (Normal) Range: 0-32 AST (SGOT) 17 [iU]/L (Normal) Range: 0-40 Alkaline Phosphatase, S 89 [iU]/L (Normal) Range: 39-117 Bilirubin, Direct 0.08 mg/dL (Normal) Range: 0.00-0.40 Bilirubin, Total <0.2 mg/dL (Normal) Range: 0.0-1.2 Albumin, Serum 4.2 g/dL (Normal) Range: 3.6-4.8 Protein, Total, Serum 6.8 g/dL (Normal) Range: 6.0-8.5 :53 SRKEG-UCLYSQKESUI-GUIHF (90751) Comments: PATIENT NOT FASTINGPERFORMED BY: [employer] [id number] AFP, Serum, Tumor Marker 2.6 ng/mL (Normal) Range: 0.0-8.3 Comments: Rosmery ECLIA methodology :53 ALKALINE PHOSPHATASE-ISOENZYM Comments: PATIENT NOT FASTINGPERFORMED BY: [facility] [id number] (92426) Intestinal Frac.: 5 % (Normal) Range: 0-18 Bone Fraction: 24 % (Normal) Range: 14-68 Liver Fraction: 71 % (Normal) Range: 18-85 82-Sqx-220106:11 ALKALINE PHOSPHATASE-ISOENZYM Comments: PATIENT NOT FASTINGPERFORMED BY: [facility] Caxzae[address] Road[address]ublin [place] [id number] (89018) Intestinal Frac.: 3 % (Normal) Range: 0-18 Bone Fraction: 19 % (Normal) Range: 14-68 Liver Fraction: 78 % (Normal) Range: 18-85 Alkaline Phosphatase, S 122 [iU]/L (Abnormal) Range: 39-117 72-Rlb-763245:11 CALCIFEDIOL (62326) Comments: PATIENT NOT FASTINGPERFORMED BY: [facility] [address]orih[address] RoadDublin [place] [id number] Vitamin D, 25-Hydroxy 37.5 ng/mL (Normal) Range: 30.0-100.0 Comments: Vitamin D deficiency has been defined by the [place] of[place] and an Endocrine Society practice guideline as alevel of serum 25-OH vitamin D less than 20 ng/mL (1,2).The Endocrine Society went on to further define vitamin Dinsufficiency as a level between 21 and 29 ng/mL (2).1. IOM ([place]). 2010. Dietary reference intakes for calcium and D. [place]: The National Academies Press.2. Jacinto MF, Eddy [place], Anay-Gonzalo JAVED, et al. Evaluation, treatment, and prevention of vitamin D deficiency: an Endocrine Society clinical practice guideline. JCEM. 2010; 96(7):1911-30. 59-Szm-441780:11 TSH (71175) Comments: PATIENT NOT FASTINGPERFORMED BY: [facility] Yokiud[address] RoadDublin [place] [id number] TSH 1.620 {uIU/mL} (Normal) Range: 0.450-4.500 76-Jcd-220069:11 T4, FREE (THYROXINE) (14806) Comments: PATIENT NOT FASTINGPERFORMED BY: [facility] Wxmhha6516 [address] RoadDublin [place] [id number] T4,Free(Direct) 1.00 ng/dL (Normal) Range: 0.82-1.77 10-Hax-014556:11 T3, FREE (TRIDOTHYRONINE) (57374) Comments: PATIENT NOT FASTINGPERFORMED BY: [facility] Kcoaqp6586 [facility] [id number] Triiodothyronine,Free,Serum 2.5 pg/mL (Normal) Range: 2.0-4.4 :08 HgA1C , Office (85304) HgA1C , Office 7.4 % (Abnormal) Range: 4.6 - 7.1 :08 Blood Glucose , Office (32255) Blood Glucose , Office 190 (Normal) :30 Lipid Profile Comments: Order Date: 12/12/16Order Info: 0788-1 - *Hepatic Function PanelOrder Info: 08688-4 - *Lipid Profile CC PCPComments: 12 hours fasting, may have water.Comments: 6 months / pre [facility] Hbhffpmtto[address] [facility] [address] [place], [place], [address] VLDL 46 mg/dL (Abnormal) Range: 5-40 LDL [...] Info: 0788-1 - *Hepatic Function PanelOrder Info: 66168-5 - *Lipid Profile CC PCPComments: 12 hours fasting, may have water.Comments: 6 months / pre next [facility]WSt. [facility] [address] [place], [place], [id number] D BILI 0.11 mg/dL (Normal) Range: 0.00-0.30 T BILI 0.40 mg/dL (Normal) Range: 0.20-1.00 ALT 19 U/L (Normal) Range: 12-78 ALK P 132 U/L (Abnormal) Range: 45-117 AST 15 U/L (Normal) Range: 15-37 GLOB 4.3 g/dL (Abnormal) Range: 2.3-3.5 ALB 3.5 g/dL (Normal) Range: 3.4-5.0 T PROT 7.8 g/dL (Normal) Range: 6.4-8.2 6-Bth-395686:55 TSH (THYROID STIMULATING Comments: Week of Apr 09; PATIENT NOT FASTINGPERFORMED BY: [facility] [id number] HORMONE) (13938) TSH 0.728 {uIU/mL} (Normal) Range: 0.450-4.500 :55 HgA1C , Office (00518) HgA1C , Office 6.9 % (Normal) Range: 4.6 - 7.1 :55 Blood Glucose , Office (73010) Blood Glucose , Office 143 (Normal) 95-Lvn-990175:11 Microscopic Examination Comments: PATIENT WAS FASTINGPERFORMED BY: [facility] [id number] Bacteria Few (Normal) Mucus Threads Present (Normal) Cast Type Hyaline casts (Normal) Casts Present {/lpf} (Abnormal) Epithelial Cells (non renal) 0-10 {/hpf} (Normal) Range: 0 - 10 RBC 0-2 {/hpf} (Normal) Range: 0 - 2 WBC 6-10 {/hpf} (Abnormal) Range: 0 - 5 46-Aja-329435:11 URINALYSIS, W/ MICRO (06061) Comments: January 2017; PATIENT WAS FASTINGPERFORMED BY: [facility] [id number] Microscopic Examination See below: (Normal) Comments: Microscopic was indicated and was performed. Nitrite, Urine Negative (Normal) Urobilinogen,Semi-Qn 0.2 mg/dL (Normal) Range: 0.2-1.0 Bilirubin Negative (Normal) Occult Blood Negative (Normal) Ketones Negative (Normal) Glucose Trace (Abnormal) Protein 1+ (Abnormal) WBC Esterase 1+ (Abnormal) Appearance Clear (Normal) Urine-Color Yellow (Normal) pH 6.5 (Normal) Range: 5.0-7.5 Specific [place] 1.016 (Normal) Range: 1.005-1.030 42-Xog-977577:11 MICROALBUMIN: CREATININE RATIO Comments: January 2017; PATIENT WAS FASTINGPERFORMED BY: [employer] Enskka2238 [facility] HospitalAppoliciousAtrium Health [facility] [id number] (06641) AND (78874) Microalb/Creat Ratio 208.2 {mg/g_creat} (Abnormal) Range: 0.0-30.0 Microalbumin, Urine 182.2 ug/mL (Normal) Creatinine, Urine 87.5 mg/dL (Normal) 70-Uiu-114591:11 CBC, Platelets & Auto Diff Comments: January 2017; PATIENT WAS FASTINGPERFORMED BY: [employer] Vdczjk5875 [facility]At[facility] [id number] (46253) Immature Grans (Abs) 0.0 {x10E3/uL} (Normal) Range: [...] 3.77-5.28 WBC 5.6 {x10E3/uL} (Normal) Range: 3.4-10.8 31-Mte-069641:11 Metabolic Panel, Comprehensive Comments: January 2017; PATIENT WAS FASTINGPERFORMED BY: [facility]CoHealth[facility] Toms RiverXtpthc2313 [facility] [id number] (21683) ALT (SGPT) 13 [iU]/L (Normal) Range: 0-32 [...] Glucose, Serum 120 mg/dL (Abnormal) Range: 65-99 39-Bvh-927686:11 TSH (THYROID STIMULATING Comments: January 2017; PATIENT WAS FASTINGPERFORMED BY: [facility] Ocnlga7437 [facility] [id number] HORMONE) (92337) TSH 0.982 {uIU/mL} (Normal) Range: 0.450-4.500 5-Tfm-004961:02 Lipid Profile Comments: Order Date: 12/04/16Order Info: [id number] - *Hepatic Function PanelOrder Date: 12/04/16Order Info: [id number] - *Lipid Profile CC PCPComments: 12 hours fasting, may have water.[place] [address] [place], [place], [address] VLDL 36 mg/dL (Normal) Range: 5-40 LDL [...] 200-240 mg/dL Borderline >240 mg/dL High Risk 7-Mck-822676:02 Liver Profile Comments: Order Date: 12/04/16Order Info: [id number] - *Hepatic Function PanelOrder Date: 12/04/16Order Info: [id number] - *Lipid Profile CC PCPComments: 12 hours fasting, may have water.[place] [address] [place], [place], [address] D BILI 0.07 mg/dL (Normal) Range: 0.00-0.30 T BILI 0.30 mg/dL (Normal) Range: 0.20-1.00 ALT 21 U/L (Normal) Range: 12-78 ALK P 112 U/L (Normal) Range: 45-117 AST 19 U/L (Normal) Range: 15-37 GLOB 3.8 g/dL (Abnormal) Range: 2.3-3.5 ALB 3.4 g/dL (Normal) Range: 3.4-5.0 T PROT 7.2 g/dL (Normal) Range: 6.4-8.2 53-Cua-575509:29 URINE RANDELL CULTURE-ZEINAB COL Comments: PATIENT NOT FASTINGPERFORMED BY: [employer] SystemsUNM Psychiatric CenterPviuim5388 [facility] [id number] Information: SRC:UC COUNT (66549) Result 1 MUG (Normal) Comments: Mixed urogenital flora25,000-50,000 colony forming units per mL Urine Final report (Normal) Culture,Comprehensive 35-Dhz-472655:53 Urinalysis, Office (69217) UA - LEUKOCYTE ESTERASE Small (Normal) UA - NITRITE Negative (Normal) URINE UROBILINGN ZEINAB TIMED Normal mg/dL (Normal) UA - PROTEIN Negative mg/dL (Normal) UA - PH 7 (Normal) UA - BLOOD Negative (Normal) UA - SPECIFIC GRAVITY 1.020 (Normal) UA - KETONES Negative mg/dL (Normal) UA - BILIRUBIN Small (Normal) UA - GLUCOSE Negative (Normal) 96-Lut-713060:51 Blood Glucose , Office (81302) Comments: 169 Blood Glucose , Office 169 (Normal) :52 HgA1C , Office (42383) Comments: 7.0 HgA1C , Office 7.0 % (Normal) Range: 4.6 - 7.1 :22 URINE RANDELL CULTURE-IDENTIFICATN Comments: PATIENT NOT FASTINGPERFORMED BY: LabForest Health Medical Center6370 [facility] [id number] Information: SRC:UC (25954) Result 1 MUG (Normal) Comments: Mixed urogenital flora10,000-25,000 colony forming units per mL Urine Final report (Normal) Culture,Comprehensive 03-Omg-290221:05 Urinalysis, Office (17610) UA - LEUKOCYTE ESTERASE Negative (Normal) UA - NITRITE Negative (Normal) URINE UROBILINGN ZEINAB TIMED Normal mg/dL (Normal) UA - PROTEIN 30 mg/dL (Normal) UA - PH 6 (Abnormal) UA - BLOOD non-hemolyzed trace (Normal) UA - SPECIFIC GRAVITY 1.020 (Normal) UA - KETONES Negative mg/dL (Normal) UA - BILIRUBIN Negative (Normal) UA - GLUCOSE 100 (Abnormal) :42 HgA1C , Office (85196) HgA1C , Office 6.2 % (Normal) Range: 4.6 - 7.1 :42 Blood Glucose , Office (94358) Blood Glucose , Office 137 (Normal) :01 TSH (THYROID STIMULATING Comments: PATIENT NOT FASTINGPERFORMED BY: [employer] 3CI [facility] [id number] HORMONE) (37113) TSH 1.820 {uIU/mL} (Normal) Range: 0.450-4.500 :03 HEPATIC FUNCTION PANEL Comments: PATIENT NOT FASTINGPERFORMED BY: [employer] [facility] [id number] (40000) ALT (SGPT) 15 [iU]/L (Normal) Range: 0-32 AST (SGOT) 23 [iU]/L (Normal) Range: 0-40 Alkaline Phosphatase, S 95 [iU]/L (Normal) Range: 39-117 Bilirubin, Direct 0.12 mg/dL (Normal) Range: 0.00-0.40 Bilirubin, Total 0.3 mg/dL (Normal) Range: 0.0-1.2 Albumin, Serum 4.3 g/dL (Normal) Range: 3.6-4.8 Protein, Total, Serum 7.3 g/dL (Normal) Range: 6.0-8.5 :03 AHRDM-FUGDOWVHAPH-DPMVC (04006) Comments: PATIENT NOT FASTINGPERFORMED BY: [employer] [facility] [id number] AFP, Serum, Tumor Marker 2.8 ng/mL (Normal) Range: 0.0-8.3 Comments: Rosmery ECLIA methodology :03 HEPATITIS PANEL (64158) Comments: PATIENT NOT FASTINGPERFORMED BY: [employer] [facility] [id number] Hep C Virus Ab <0.1 {s/co_ratio} (Normal) Range: 0.0-0.9 Comments: Negative: < 0.8 Indeterminate: 0.8 - 0.9 Positive: > 0.9 . The CDC recommends that a positive HCV antibody result be followed up with a HCV Nucleic Acid Amplification test (555839). Hep B Core Ab, IgM Negative (Normal) HBsAg Screen Negative (Normal) Hep A Ab, IgM Negative (Normal) :58 CBC W/Diff, Automated Comments: CBCD FOR DR CH[facility]MANSaint [facility] Hospital[facility] [address] [place], [address] Absolute Lymph 1.84 {X10_3/ul} (Normal) Range: 0.83-4.51 [...] Comments: Order Date: 05/14/16Interface Comments: Reason:Order Date: 05/14/16[facility] [address] [place], [address] T4 THYROXIN 11.6 ug/dL (Normal) Range: 4.8-13.9 :58 Thyroid Stim Hormone (TSH) Comments: Order Date: 05/14/16Interface Comments: Reason:Order Date: 05/14/16[facility] [address] [place], [address] TSH 1.96 {uIU/mL} (Normal) Range: 0.358-3.74 :11 Urinalysis, Office (25964) UA - LEUKOCYTE ESTERASE Small (Normal) UA - NITRITE Negative (Normal) URINE UROBILINGN ZEINAB TIMED Normal mg/dL (Normal) UA - PROTEIN 30 mg/dL (Normal) UA - PH 6 (Abnormal) UA - BLOOD Negative (Normal) UA - SPECIFIC GRAVITY 1.010 (Normal) UA - KETONES Negative mg/dL (Normal) UA - BILIRUBIN Negative (Normal) UA - GLUCOSE Negative (Normal) :50 Basic Metabolic Profile (BMP) Comments: [facility] [address] [place], [address] GAP 7 (Normal) Range: 5-15 CO2 33.0 [...] 100 mg/dL (Normal) Range: 70-110 :48 MAGNESIUM (10934) Comments: PATIENT NOT FASTINGPERFORMED BY: LabCoHealthSouth - [facility] Toms RiverUcensj5373 [facility] [id number] Magnesium, Serum 1.6 mg/dL (Normal) Range: 1.6-2.3 :48 TSH (THYROID STIMULATING Comments: PATIENT NOT FASTINGPERFORMED BY: [facility] Vafjfc3485 [facility] [id number] HORMONE) (50454) TSH 6.340 {uIU/mL} (Abnormal) Range: 0.450-4.500 :48 URIC ACID BLOOD (10592) Comments: PATIENT NOT FASTINGPERFORMED BY: LabCoUNM Psychiatric CenterCruosl2823 [facility] [id number] Uric Acid, Serum 6.1 mg/dL (Normal) Range: 2.5-7.1 Comments: Therapeutic target for gout patients: <6.0 :09 Blood Glucose , Office (19710) Blood Glucose , Office 116 (Normal) :09 HgA1C , Office (79584) HgA1C , Office 6.7 % (Normal) Range: 4.6 - 7.1 :19 Basic Metabolic Profile (BMP) Comments: Order Date: 03/12/16OV Order #: [id number] [facility] Medical Center [address] [place], [address] GAP 7 (Normal) Range: 5-15 CO2 29.0 [...] 7-18 GLU 107 mg/dL (Normal) Range: 70-110 11-Nos-551372:19 T4 Total, Thyroxin Comments: Order Date: 03/12/16 Order #: [id number] Community Hospital [address] [place], [place], [address] T4 THYROXIN 9.4 ug/dL (Normal) Range: 4.8-13.9 :19 Thyroid Stim Hormone (TSH) Comments: Order Date: 03/12/16 Order #: [id number] Community Hospital [address] [place], [place], [address] TSH 5.44 {uIU/mL} (Abnormal) Range: 0.358-3.74 :49 Aerobic Bacterial Culture Comments: PATIENT NOT FASTINGPERFORMED BY: [facility] Vepgdh1414 [facility] [id number] Information: RT AXILLA Result 1 MRSA (Abnormal) [...] (Normal) Comments: PATIENT NOT FASTINGPERFORMED BY: [facility] Rkkrcg8626 [place] [id number] Information: NASAL 5:49 Culture 12-Csr-753166:20 Basic Metabolic Profile (BMP) Comments: [facility] [address] [place], [place], [address] GAP 7 (Normal) Range: 5-15 CO2 29.0 [...] A.D.A. criteria. :02 Blood Glucose , Office (25752) Blood Glucose , Office 137 (Normal) :54 Urine Drug Screen (Office - WNL (Normal) Comments: pos for oxy, all else neg Urine Drug Screen 6 Panel) Comments: All negative except Oxy (39527) :52 HgA1C , Office (53985) Comments: 7.3 HgA1C , Office 7.3 % (Abnormal) Range: 4.6 - 7.1 9-Xwx-900496:43 Basic Metabolic Profile (BMP) Comments: DR URBINA ORDERED BMPDR MALCOLM ORDERED LIVER LIPIDWMetroHealth Main Campus Medical Center [address] [place], [address] GAP 3 (Abnormal) Range: 5-15 CO2 33.0 mmol/L (Abnormal) Range: 21.0-32.0 CL 102 mmol/L (Normal) Range: 98-107 K 3.4 mmol/L (Abnormal) Range: 3.5-5.1 Comments: ADDENDA: Denisse at [facility] aware of potassium level NA [...] 7-18 GLU 101 mg/dL (Normal) Range: 70-110 0-Ljn-645719:43 Lipid Profile Comments: DR URBINA ORDERED BMPDR MOODISPAW ORDERED LIVER LIPIDPike Community Hospital [address] [place], [address] VLDL 26 mg/dL (Normal) Range: [...] 200-240 mg/dL Borderline >240 mg/dL High Risk 9-Jhs-294364:43 Liver Profile Comments: DR URBINA ORDERED BMPDR MOODISPAW ORDERED LIVER LIPIDPike Community Hospital [address] [place], [address] D BILI 0.14 mg/dL (Normal) Range: 0.00-0.30 T BILI 0.40 mg/dL (Normal) Range: 0.20-1.00 ALT 16 U/L (Normal) Range: 12-78 ALK P 112 U/L (Normal) Range: 50-136 AST 19 U/L (Normal) Range: 15-37 GLOB 3.9 g/dL (Abnormal) Range: 2.3-3.5 ALB 3.0 g/dL (Abnormal) Range: 3.4-5.0 T PROT 6.9 g/dL (Normal) Range: 6.4-8.2 :02 Blood Glucose , Office (78158) Blood Glucose , Office 160 (Normal) :37 HgA1C , Office (22310) Comments: 7.2 HgA1C , Office 7.2 % (Abnormal) Range: 4.6 - 7.1 :24 MRSA Culture (45603) Comments: [facility] [address] [place], [place], [address] MRSA RESULT Negative (Normal) :59 Metabolic Panel, Basic Comments: send to Dr.Masroor Urbina; PATIENT NOT FASTINGPERFORMED BY: LabCoHealthSouth - [facility] Toms RiverKxcxig8208 [facility] [id number] Information: [id number] (93841) Calcium, Serum 10.7 mg/dL (Abnormal) Range: 8.7-10.3 [...] Glucose, Serum 182 mg/dL (Abnormal) Range: 65-99 8-Mqy-483228:09 MRSA Culture (88871) Comments: [facility] [address] [place], [address] MRSA RESULT POSITIVE (Abnormal) :39 Lipid Profile Comments: [facility] [address] [place], [address] VLDL 23 mg/dL (Normal) Range: 5-40 LDL [...] mg/dL High Risk :39 Liver Profile Comments: [facility] [address] [place], [address] ; non-emergent and handled by [...] Range: 6.4-8.2 :39 T4 Total, Thyroxin Comments: [place] [address] [place], [address] T4 THYROXIN 10.9 ug/dL (Normal) Range: 4.8-13.9 :39 Thyroid Stim Hormone (TSH) Comments: [facility] [address] [place], [address] TSH 3.63 {uIU/mL} (Normal) Range: 0.358-3.74 4-Dco-397207:13 LIPID PANEL (17147) Comments: PATIENT WAS FASTINGPERFORMED BY: [facility]6370 [facility] [id number] LDL/HDL Ratio 1.2 {ratio_units} (Normal) Range: 0.0-3.2 [...] Cholesterol, Total 160 mg/dL (Normal) Range: 100-199 1-Xsg-317776:13 CBC W/AUTO DIFF WBC Comments: PATIENT WAS FASTINGPERFORMED BY: [facility]6370 [facility] [id number] Information: [id number] (88736) Immature Grans (Abs) 0.0 {x10E3/uL} (Normal) Range: [...] 3.77-5.28 WBC 4.5 {x10E3/uL} (Normal) Range: 3.4-10.8 7-Rjg-107589:13 METABOLIC PANEL, COMPREHENSIVE Comments: PATIENT WAS FASTINGPERFORMED BY: [facility]CoHealth[facility] - [facility] Toms RiverVqshrx6444 [facility] [id number] (53353) ALT (SGPT) 8 [iU]/L (Normal) Range: 0-32 [...] Glucose, Serum 109 mg/dL (Abnormal) Range: 65-99 0-Iag-652745:15 Basic Metabolic Profile (BMP) Comments: [facility] [address] [place], [place], [address] GAP 7 (Normal) Range: 5-15 CO2 30.0 [...] 200 mg/dLsuggests DIABETES MELLITUS per A.D.A. criteria. 6-Bpn-796905:15 CBC W/Diff, Automated Comments: [facility] [address] [place], [place], [address] Absolute Lymph 0.95 {X10_3/ul} (Normal) Range: 0.83-4.51 [...] K/mm3 (Normal) Range: 4.4-11.0 :31 LIPID PANEL (44700) Comments: PATIENT WAS FASTINGPERFORMED BY: LabCoHealth[facility] - [facility] Toms RiverZmimlv5762 [facility] [id number]; non-emergent till apt LDL/HDL Ratio 1.6 {ratio_units} [...] Cholesterol, Total 219 mg/dL (Abnormal) Range: 100-199 54-Vfm-449038:31 CBC with auto diff Comments: PATIENT WAS FASTINGPERFORMED BY: LabCoHealth[facility] - [facility] Toms RiverOhsmgl4000 [facility] [id number] Information: [id number] (05953) Immature Grans (Abs) 0.0 {x10E3/uL} (Normal) Range: [...] CREATININE RATIO Comments: PATIENT WAS FASTINGPERFORMED BY: [facility]CoHealth[facility] Toms RiverSqtoqy1210 [facility] [id number] (09881) AND (75803) Microalb/Creat Ratio 93.7 {mg/g_creat} (Abnormal) Range: 0.0-30.0 Microalbumin, Urine 196.4 ug/mL (Abnormal) Range: 0.0-17.0 Creatinine, Urine 209.7 mg/dL (Normal) Range: 15.0-278.0 :31 METABOLIC PANEL, COMPREHENSIVE Comments: PATIENT WAS FASTINGPERFORMED BY: [employer]6370 [facility] [id number] (20551) ALT (SGPT) 20 [iU]/L (Normal) Range: 0-32 [...] Glucose, Serum 120 mg/dL (Abnormal) Range: 65-99 01-Coo-794927:31 Hemoglobin Glyclated (HGB A1C) Comments: PATIENT WAS FASTINGPERFORMED BY: [employer]70 [facility] [id number] (65407) Hemoglobin A1c 7.6 % (Abnormal) Range: 4.8-5.6 Comments: . Pre-diabetes: 5.7 - 6.4 Diabetes: >6.4 Glycemic control for adults with diabetes: <7.0 85-Kfn-168824:30 Urinalysis, Complete Comments: Order Date: 07/18/15How was Urine Obtained? CLEAN [facility] [address] [place], [place], [address] MUCUS, URINE 0 SEEN {/hpf} (Normal) BACTERIA [...] (Abnormal) CLARITY Clear (Normal) COLOR Yellow (Normal) 84-Nrm-908259:43 CBC W/Diff, Automated Comments: [facility] [address] [place], [place], [address] PATH REV May foll (Normal) SMEAR COMMENT [...] 4.2-5.4 WBC 15.1 K/mm3 (Abnormal) Range: 4.4-11.0 41-Qua-122273:43 Comprehensive Metabolic Profil Comments: [facility] [address]apo[address] [place], [place], [address] GAP 8 (Normal) Range: 5-15 CO2 33.0 [...] Comments: To be drawn 6H after initial specimenWMetroHealth Main Campus Medical Center [address] [place], [place], [address] LACTIC ACID 1.7 mmol/L (Normal) Range: 0.4-2.0 :43 Magnesium Comments: [facility] [address] [place], [place], [address](906) MG 1.3 mg/dL (Abnormal) Range: 1.8-2.4 :43 Partial Thromboplast Time Comments: [facility] [address] [place], [place], [phone] PTT 31.4 s (Normal) Range: 24.1-36.2 :43 Phosphorus Comments: [facility] [address] [place], [address] PHOS 1.0 mg/dL (Abnormal) Range: 2.5-4.9 Comments: Critical Result(s) Called at: 17:06:16 07/18/2015 by:Stacey ibarra rn 59-Uby-967378:43 Prothrombin Time w/INR Comments: [facility] [address] 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 Indication: Encounter for annual general medical [...] - Strool Based DNA Test, CRC SCREEN (78075)Indication: Encounter for screening for malignant neoplasm of colon (Renamed from Special screening for malignant neoplasms, colon) On: 93-Ykf-258711:05 Request FECAL OCCULT- Tubes sent home (82308)Indication: Encounter for screening for malignant neoplasm of colon (Renamed from Special screening for malignant neoplasms, colon) On: 14-Egy-726472:09 Request Lipid Panel (93692)Indication: Diabetes mellitus type 2, insulin dependent On: 37-Ewk-325943:08 Request Comments: around January Metabolic Panel, Comprehensive (56495)Indication: Diabetes mellitus type 2, insulin dependent On: 57-Vzr-564539:08 Request Comments: around January CBC, Platelets & Auto Diff (03058)Indication: Diabetes mellitus type 2, insulin dependent On: 71-Sac-457550:08 Request Comments: around January TSH (09043)Indication: Diabetes mellitus type 2, insulin dependent On: 74-Lrv-252520:08 Request Comments: around January Rapid Flu (15847 x 2)Indication: Unspecified Diagnosis On: 31-Pkn-34791:33 Request CBC & PLATELETS (AUTO) (50859)Indication: Abdominal pain On: 7-Nde-794907:57 Request CULTURE, NOSE (99748)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 On: :31 Request Comments: check for MRSA MRSA Culture (17595)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 On: :23 Request Comments: rt axila HgA1C , Office (88320)Indication: Diabetes mellitus type 2, insulin dependent On: 38-Wnz-290738:21 Request Urinalysis, Office (42410)Indication: History of MRSA infection On: 60-Hzr-198807:42 Request Hemoglobin Glyclated (HGB A1C) (13521)Indication: Diabetes mellitus type 2, uncontrolled On: 55-Opk-131629:46 Request MICROALBUMIN: CREATININE RATIO (15462) AND (43631)Indication: Hypertensive heart disease without heart failure On: 50-Msv-568268:46 Request Planned Encounters Medical; Overnight Pulse Ox Placement - On: 08-Jul-2018 13:00 Comprehensive Internal Medicine Visit, Nurse Medical; 3 Month FU - On: 28-Jul-2018 13:30 Comprehensive Internal Medicine Elsa Chopra CNP, CNP, Mary E Planned Procedures Overnight Pulse OX (46529)By: On: 30-Jun-2018 Intent Lee Ann Schafer DO SPIROMETRY PERFORMED (71192)By: On: 25-Jun-2018 Intent Visit, Nurse SPIROMETRY PERFORMED (69612)By: On: 25-Jun-2018 Intent Visit, Nurse SIX MINUTE WALK TEST (33421)By: On: 25-Jun-2018 Intent Visit, Nurse Flu Vaccine (Quadrivalent) [id number]: On: 20-May-2018 Intent Karly Chandra DEXA SCAN AXIAL SKELETON (50391)By: On: 18-Dec-2017 Intent Elsa Chopra CNP, CNP, Mary E SCREENING DIGITAL TOMOSYNTHESIS OF On: 18-Dec-2017 Intent BREAST (84390)By: Nav MCKINLEY OneliaMarly Chopra CNP [place] Flu Vaccine (Quadrivalent) [id number]: On: 11-Jun-2017 Intent Nav MCKINLEYElsa Nav MCKINLEY [place] Comments: InfluenzaLot #[id number]-L dltd, IMDose prefilled syringeVIS and ABN signedgiven by:GENARO blackwood PHYSICAL THERAPY TREATMENT On: 11-Dec-2016 Intent (40283)By: Adelita Doshi LPN PHYSICAL THERAPY EVALUATION On: 11-Dec-2016 Intent (59231)By: Elsa Chopra CNP, CNP [place] Toradol Injection, 30 mg On: 10-Dec-2016 Intent ([id number])By: Elsa Chopra CNP, CNP [place] Radiology - Hip - RightBy: Nav On: 10-Dec-2016 Intent ARLENElsa Nav MCKINLEY [place] Aerosol Treatment (74635)By: Tico On: 16-Oct-2016 Intent Adelita LAM Flu Vaccine (Quadrivalent) [id number]: On: 11-Jul-2016 Intent Nav MCKINLEY OneliaMarly Chopra CNP [place] Comments: FLUlot: [id number]:01/16site:Lt deltoidroute:IMdose:.5mlDEMICK, [place] Ultrasound - Abdomen CompleteBy: On: 03-Jul-2016 Intent Nav MCKINLEY OneliaMarly Chopra CNP [place] Radiology - KUBBy: Elsa Chopra CNP On: 03-Jul-2016 Intent Elsa العلي CNP DRAIN/INJECT SMALL JOINT OR BURSA On: 18-May-2016 Intent ()By: Elsa Chopra CNP Comments: to left wrist joint 1/2 cc kenalog, 1/2 cc marcaine. Kenalog lot #[id number] exp Marcain lot [id number] ex Elsa MCKINLEY MAMMOGRAM, SCREENING, BOTH BREAST On: 11-May-2016 Intent (48490)By: Elsa Chopra CNP, CNP, Mary E Radiology [...] mellitus without complication) : DISCONTINUED - URINALYSIS (41122) Indication: Diabetes mellitus type II, controlled, with no complications (Renamed from Controlled type 2 diabetes mellitus without complication) CKD (chronic kidney disease), stage III : DISCONTINUED - MICROALBUMIN: CREATININE RATIO (96059) AND (49965) Indication: CKD (chronic kidney disease), stage III Diabetes mellitus type II, controlled, with no complications (Renamed from Controlled type 2 diabetes mellitus without complication) : DISCONTINUED - CBC, PLATELETS & AUT DIFF (20592) Indication: Diabetes mellitus type II, controlled, with no complications (Renamed from Controlled type 2 diabetes mellitus without complication) Diabetes mellitus type II, controlled, with no complications (Renamed from Controlled type 2 diabetes mellitus without complication) : DISCONTINUED - METABOLIC PANEL, COMPREHENSIVE (93399) Indication: Diabetes mellitus type II, controlled, with no complications (Renamed from Controlled type 2 diabetes mellitus without complication) Diabetes mellitus type II, controlled, with no complications (Renamed from Controlled type 2 diabetes mellitus without complication) : DISCONTINUED - TSH (54011) Indication: Diabetes mellitus type II, controlled, with [...] dependent : DISCONTINUED - METABOLIC PANEL, BASIC (79806) Indication: Diabetes mellitus type 2, insulin dependent [...] patient does not have durable power of insurance attorney or living will. The patient has noticed getting bored, poor spirits most of time and lack of energy. Other providers contributing to the lyndsey bolton's care are linoleum installer () and urologist (). Note for Annual [...] and is sleeping poorly. Patient has been [employer] End: 18-Dec-2017 14:15 pliant with instructions. Current [...] and is sleeping poorly. Patient has been [employer] End: 18-Sep-2017 13:50 pliant with instructions. Current [...] - Reason for ER visit: note: (surgery [facility]. ). The patient feels well with minor [...] MRSA. She has had pre-op testing at [facility] on 10-14-2015, for Lumbar microdecompression for 10-24-[address] Dahl for papers to be signed [...] 19-Jul-2015 22:21 - sharp pain- went to [facility] ER). Current medication use: no side effects [...] surgeon- - recently went to er at [place] on jul 14 - she was having [...]
--- OUTSIDE RECORDS SUMMARY | 2018-09-25 14:41 | XMS RPT_ITS | Continuity of Care Document ---
:1950 Author Organization [facility] Address [address] [facility] [address] [place] [address] Phone Care Team Providers Name Role Phone Nav ARLENElsa E Unavailable Malcolm STANLEY, Casey Florian Unavailable Linden DO , Dr. Aaron Diaz Unavailable John BatistaAnnalisa Unavailable Dr. Abimael Ag Unavailable Kirby STANLEY, Jared Galeano Unavailable Pascale Boston Unavailable Slarb HUMAN RESOURCES BENEFITS ASSISTANT, Adelita Unavailable Unavailable Long HUMAN RESOURCES BENEFITS ASSISTANT, Dora L Unavailable Unavailable Karly Chandra Unavailable [...] 585.3) Comments: follows with Dr. Munguia in [place], seen for sarcoidosis currently, stableGFR 42 Status: [...] on wean of steroid Scale 201-250. 5 eftjk468-115 8 ujlzf433-613 10 -425 12 units>401 15 unitsad ding metformin not [...] given in L arm subcutaneously paitent tolerated wellLOT#[id number] 06 Status: Active Postmenopausal (Renamed from Postmenopausal [...] days Quantity: 30 {Tablet} Refills: 3 Ordered:11-May-2016 SlaAdelita mancilla LPN Start : 08-May-2016 Active AmLODIPine Besylate 5 MG Oral Tablet 1 (one) Tablet bid for 30 days Quantity: 60 {Tablet} Refills: 3 Ordered:06-Jun-2018 Nav MCKINLEY, Elsa Reyes CNP, Elsa Luke Start : 06-Jun-2018 Active ASPIRIN LOW DOSE, 81MG (Oral Tablet Delayed Release) 1 (one) Tablet DR Tablet DR daily for 30 days Quantity: 30 {Tablet} Refills: 0 Ordered:25-Jul-2015 DO, Madeline A Start : 18-Jul-2015 Active Atorvastatin [...] {Tablet} Refills: 0 Ordered:24-Jun-2018 Nav MCKINLEY, Elsa Hinton CNP Start : 24-Jun-2018 Active IRON, 325 (65 Fe)MG (Oral Tablet) 1 (one) Tablet Tablet daily for 30 days Quantity: 30 {Tablet} Refills: 0 Ordered:25-Jul-2015 DO, Madeline A Start : 18-Jul-2015 Active Klor-Con 10 10 MEQ Oral Tablet Extended Release 1 (one) Tablet ER bid for 60 days Quantity: 60 {Tablet} Refills: 3 Ordered:14-Apr-2018 Remington Oviedo Start : 14-Apr-2018 Active LORazepam 0.5 MG Oral Tablet 1 (one) Tablet bid, prn only for 0 days Quantity: 60 {Tablet} Refills: 0 Ordered:14-Apr-2018 Nav ARLEN, Elsa Reyes ARLEN Elsa Luke Start : 14-Apr-2018 Active Comments:Oarrs rundx F41.9#60thirty days Melatonin 1 MG Oral Tablet 3 (three) Tablet qhs for 0 days Quantity: 60 {Tablet} Refills: 0 Ordered:12-Mar-2016 Nav ARLEN, Elsa Leblancsam MCKINLEY Elsa Luke Start : 12-Mar-2016 Active MetFORMIN HCl ER 500 MG Oral Tablet Extended Release 24 Hour 2 (two) Tablet bid for 30 days Quantity: 120 {Tablet} Refills: 6 Ordered:27-May-2018 Nav ARLEN, Elsa Leblancsam MCKINLEY Elsa Luke Start : 27-May-2018 Active Omeprazole 20 MG Oral Tablet Delayed Release 1 (one) Tablet DR Tablet DR daily for 90 days Quantity: 90 {QS} Refills: 3 Ordered:08-Jan-2018 Nav ARLEN, Elsa Reyes ARLEN Elsa Luke Start : 08-Jan-2018 Active Oxycodone-Acetaminophen 7.5-325 MG Oral Tablet 1 (one) Tablet Tablet bid as needed for 0 days Quantity: 60 {Tablet} Refills: 0 Ordered:03-Jul-2016 Nav ARLEN, Esla Reyes ARLEN Elsa Luke Start : 03-Jul-2016 Active Comments:Medication taken as needed. Promethazine HCl 25 MG Oral Tablet 1 (one) Tablet q 8hrs as needed for 30 days Quantity: 30 {Tablet} Refills: 1 Ordered:27-May-2018 Nav ARLEN, Elsa Reyes ARLEN Elsa Luke Start : 27-May-2018 Active Comments:Medication taken as needed. Synthroid 50 MCG Oral Tablet 1 (one) Tablet daily except Sundays and Tuesdays for 0 days Quantity: 30 {Tablet} Refills: 3 Ordered:27-May-2018 Nav RHEOLOGIST, Elsa Reyes ARLEN Elsa Luke Start : 27-May-2018 Active Comments:generic only UNISOM, 25MG (Oral Tablet) 2 (two) Tablet Tablet q hs for 30 days Quantity: 60 {Tablet} Refills: 0 Ordered:25-Jul-2015 Madeline A Start : 18-Jul-2015 Active VITAMIN D3, 89659XDWN (Oral Capsule) 1 (one) Capsule Capsule once a month for 30 days Quantity: 1 {Capsule} Refills: 0 Ordered:25-Jul-2015 Madeline A Start : 18-Jul-2015 Active AMIODARONE HCL, 200MG (Oral Tablet) 1 (one) Tablet Tablet daily for 30 days Quantity: 30 {Tablet} Refills: 0 Ordered:20-Jan-2016 Nav MCKINLEY, Elsa Reyes CNP, Elsa Luke Start : 20-Jan-2016 End : 19-Feb-2016 Inactive Comments:per [employer] Augmentin 875-125 MG Oral Tablet 1 (one) Tablet bid for 14 days Quantity: 28 {Tablet} Refills: 0 Ordered:16-Oct-2016 Nav MCKINLEY, Elsa Reyes RHEOLOGIST, Elsa Luke Start : 16-Oct-2016 End : 30-Oct-2016 Inactive Bactrim DS 800-160 MG Oral Tablet 1 (one) Tablet bid for 10 days Quantity: 20 {QS} Refills: 0 Ordered:12-Mar-2016 Nav MCKINLEY, Elsa Reyes CNP, Elsa Luke Start : 12-Mar-2016 End : 22-Mar-2016 Inactive FENOFIBRATE, 160MG (Oral Tablet) 1 (one) Tablet Tablet daily for 30 days Quantity: 30 {Tablet} Refills: 0 Ordered:19-Aug-2015Akhila A Start : 18-Jul-2015 End : 17-Aug-2015 Inactive ISOSORBIDE MONONITRATE, 10MG (Oral Tablet) 1 (one) Tablet Tablet tid for 30 days Quantity: 90 {Tablet} Refills: 0 Ordered:25-Jul-2015 Altagracia Santiago Start : 18-Jul-2015 End : 17-Aug-2015 Inactive LIPITOR, 20MG (Oral Tablet) 1 (one) Tablet Tablet qd for 30 days Quantity: 30 {Tablet} Refills: 0 Ordered:24-Oct-2015Akhila A Start : 22-Sep-2015 End : 22-Oct-2015 [...] 18-Jul-2015 End : 17-Aug-2015 Inactive PEN NEEDLES /, 31G X 5 MM (Miscellaneous) 1 (one) [...] Quantity: 1 {Vial} Refills: 6 Ordered:07-Feb-2016 Nav RHEOLOGIST, Elsa Reyes RHEOLOGIST, Onelia Start : 03-Oct-2015 End : 07-Feb-2016 Discontinued LEVEMIR, 100UNIT/ML (Subcutaneous Solution) 20 Solution units each morning for 30 days Quantity: 1 {Vial} Refills: 6 Ordered:20-Jan-2016 Adelita Doshi LPN Start : 21-Oct-2015 End : 20-Jan-2016 Discontinued MACROBID, 100MG (Oral Capsule) q12hrs (100 MG) End : 05-Aug-2015 Discontinued Comments:[facility] MUPIROCIN, 2% (External Ointment) 1 [...] : 05-Aug-2015 Discontinued Comments:1,250mg IV q24hrs x 21nznv0,500mg IV q24hrs #14 Allergies and Adverse Reactions [...] Comments: was seeing Dr. Munguia's partner in [place] Dr. Morel, gfr 43%, has proteinuria Status: [...] Visit Report Result: Comments: See Note; NOTES: [facility] [address] [place] [address] [place] [place] [address] OFFICE VISIT Date of Service: 02/17/18 MR#: [id number] Acct: [id number] Name: SHREYAS KATHLEEN Rep #: [id number] : 1950 Provider: Casey Fowler MD Age/Sex: 67/F Location[place] [facility] Status: Signed HPI HPI Details: SHREYAS KATHLEEN, is a 67 F who presents to the office today for for outpatien t cardiovascular follow-up of her history of underlying CAD, non-ST segment elevation [place], paroxysmal atrial fibrillation, superimposed upon a history [...] PFSH Medical History Atherosclerotic heart disease of [place] coronary artery without angina pectoris (Chronic) History [...] stenosis Assessment AND Plan 1. Atherosclerosis of [place] coronary artery of [place] heart without angina pectoris I25.10 Mild Plan [...] for an outpatient visit in [facility] 9 months unless needed sooner. Thank you for allowing me to participate in the care of your patient. Please don't hesitate to call if any issues arise. This note was generated using a voice sourceasy system and there may be incorrect words, spelling or punctuation that were not noted when reviewing the office note prior to saving. Follow Up 9 Months Coding Level of Care Code Off vis,est,leathae l 4 Diagnoses Atherosclerosis of [place] coronary artery of [place] heart without angina pectoris I25.10 [place] vs. transplanted heart: [place] heart Paroxysmal atrial fibrillation I48.0 Hyperlipidemia, u nspecified hyperlipidemia type E78.5 Hyperlipidemia type: unspecified Essential hypertension I10 Hypertension type: essential hypertension Long-term use of high-risk medication Z79.899 Coding Level of Care Code Off vis,est,level 4 Diagnoses Atherosclerosis of [place] coronary artery of [place] heart without angina pectoris I25.10 [place] vs. transplanted heart: [place] heart Paroxysmal atrial fibrillat ion I48.0 Hyperlipidemia, unspecified hyperlipidemia type E78.5 Hyperlipidemia type: unspecified Essential hypertension I10 Hypertension type: essential hypertension Long-term use of high-risk medicatio n Z79.899 02/17/18 1530 <Electronically signed by Casey Fowler MD> Date Casey Fowler MD Cosigner Signature: Date _ (if applicable) CC: Elsa Chopra NP 14-Feb-2018 SCREENING MAMM (CAD), BILAT Result: Comments: See Note; NOTES: [facility] Imaging Services [address] [place] [address] SCREENING MAMM (CAD), BILAT MR#: [id number] Acct: [id number] Name: SHREYAS KATHLEEN Rep #: [id number] : 1950 F 67 From: Elias Finn MD PCP: Elsa Chopra NP Status: REG CLI Study: SCREENING MAMM (CAD), BILAT Date of Exam: 02/14/18 Exam# [id number] Ordering Dr: Elsa Chopra MAMMO GRAPHY - [...] [facility] facility within 30 days. Approximately 10% of breast cancers are not detected by mammography. A normal mammogram should not delay biopsy of a clinically suspicious abnormality. [id number] Elect ronically Signed: Elias Finn MD at 8:30 EDT Tel [phone], Service support , CC: Elsa Chopra NP Fiber Locking Supervisor: Signed 21-Jan-2018 Dexa Bone Density Study Result: Comments: See Note; NOTES: [facility] Imaging Services [address] [place] [address] Dexa Bone Density Study MR#: [id number] Acct: [id number] Name: SHREYAS KATHLEEN Rep #: [id number] : 1950 F 67 From: Elias Finn MD PCP: Elsa Chopra NP Status: REG CLI Study: Dexa Bone Density Study Date of Exam: 01/21/18 Exam# [id number] Ordering Dr: Elsa Chopra STUDY: DUAL E [...] Elias Finn MD at 15:36 EDT Tel [phone], Service support , CC: Elsa Chopra NP Fiber Locking Supervisor: Signed 10-Dec-2016 Hip 2-3 Views with Pelvis Result: Comments: See Note; NOTES: [facility] Imaging Services [address] [place] [address] Verdana 4d Hip 2-3 Views with Pelvis MR#: [id number] Acct: [id number] Name: SHREYAS KATHLEEN Rep #: [id number] : 1950 F 66 From: Herve Jimenez MD PCP: Elsa Chopra Status: REG CLI Study: Hip 2-3 Views with Pelvis Date of Exam: 12/10/16 Exam# [id number] Ordering Dr: Elsa Chopra STUDY : X-RAY [...] FACR at 11:31 EDT , Service support [phone], CC: Elsa Chopra Fiber Locking Supervisor: Signed 05-Jul-2016 Abdomen Complete Result: Comments: See Note; NOTES: [facility] Imaging Services [address] [place] [address] Verda 4d Abdomen Complete MR#: [id number] Acct: [id number] Name: SHREYAS KATHLEEN Keira Rep #: [id number] : 1950 F 66 From: Elias Finn MD PCP: Elsa Chopra Status: REG CLI Study: Abdomen Complete Date of Exam: 07/05/16 Exam# [id number] Ordering Dr: Elsa Chopra STUDY: ABDOMINAL ULTRASOUND [...] Elias Finn MD at 9:35 EDT Tel [phone], Service support [phone], CC: Elsa Chopra Fiber Locking Supervisor: Signed 05-Jul-2016 Abdomen Single View Result: Comments: See Note; NOTES: [facility] Imaging Services [address] [place] [address] Verdana 4d Abdomen Single View MR#: [id number] Acct: [id number] Name: SHREYAS KATHLEEN Rep #: [id number] : 1950 F 66 From: Elias Finn MD PCP: Elsa Chopra Status: REG CLI Study: Abdomen Single View Date of Exam: 07/05/16 Exam# [id number] Ordering Dr: Elsa Chopra STUDY: X-RA Y [...] of the L1 vertebrae. ORDER # : [id number] RAD/Abdomen Single View IMPRESSION: Moderate amount of fecal material is seen in the colon. Electronically Signed: Elias Finn MD at 10:34 EDT Tel [phone], Service sup port [phone], CC: Elsa Chopra Fiber Locking Supervisor: Signed 18-May-2016 Bilat Scrn Digital AND CAD Result: Comments: See Note; NOTES: [facility] Imaging Services [address] [place] [address] Verdana 4d Bilat Scrn Digital AND CAD MR#: [id number] Acct: [id number] Name: JACINTO KATHLEEN Rep #: [id number] : 1950 F 65 From: Elias Finn MD PCP: Elsa Chopra Status: REG CLI Study: Bilat Scrn Digital AND CAD Date of Exam: 05/18/16 Exam# [id number] Ordering Dr: Elsa Chopra MAMMOGRAPHY - BILATERAL [...] no significant change since the prior study. BI/Bilat Scrn Digital AND CAD IMPRESSION: Stab le bilateral screening mammogram. Yearly follow-up mammogram recommended. (A) ASSESSMENT CATEGORY: BIRADS Category 1: Negative. A letter regarding these results yane l be sent to the patient by the facility within 30 days. Approximately 10% of breast cancers are not detected by mammography. A normal mammogram should not delay biopsy of a clinically suspicious abnor mality. [id number] Electronically Signed: Elias Finn MD at 12:53 EDT Tel [phone], Service support [phone], CC: Elsa Chopra Fiber Locking Supervisor: Signed 14-Feb-2016 Shoulder min 2 Views Result: Comments: See Note; NOTES: [facility] Imaging Services [address] [place] [address] Verdana 4d Shoulder min 2 Views MR#: [id number] Acct: [id number] Name: SHREYAS KATHLEEN Rep #: [id number] : 1950 F 65 From: Herve Jimenez MD PCP: Madeline Florez DO Status: REG CLI Study: Shoulder min 2 Views Date of Exam: 02/14/16 Exam# [id number] Ordering Dr: Pascale Boston DO STUDY: X-RAY [...] FACR at 14:50 EDT , Service support [phone], Fax RAD/Shoulder min 2 Views IMPRESSION: Bilateral of the acromioclavicular joint, otherwise normal x-ray examination of the shoulder. Electronically Signed: Herve Jimenez MD, FACR at 14:50 EDT , Service support [phone], CC: Pascale Boston DO; Madeline Florez DO Fiber Locking Supervisor: Signed 21-Oct-2015 Spirometry (70157) Comments: mod restriction Result: 19-Sep-2015 Chest PA and Lateral Result: Comments: See Note; NOTES: [facility] Imaging Services [address] [place] [address] Verdana 4d Chest PA and Lateral MR#: [id number] Acct: [id number] Name: SHREYAS KATHLEEN Rep #: [id number] : 1950 F 65 From: Elias Finn MD PCP: Madeline Florez DO Status: REG CLI Study: Chest PA and Lateral Date of Exam: 09/19/15 Exam# [id number] Ordering Dr: Madeline Florez DO STUDY: X-RAY [...] Elias Finn MD at 13:58 EST Tel [phone], Service support [phone], RAD/Chest PA and Lateral IMPRESSION: Stable examination. No acute abnormality is seen. Electronically Doris d: Elias Finn MD at 13:58 EST Tel [phone], Service support [phone], CC: Madeline Florez DO Fiber Locking Supervisor: Signed 25-Aug-2015 Spine Lumbar (Routine) Result: Comments: See Note; NOTES: [facility] Imaging Services [address] [place] [address] [facility] 4d Spine Lumbar (Routine) MR#: [id number] Acct: [id number] Name: SHREYAS MAJOR Rep #: [id number] : 1950 F 65 From: Herve Jimenez MD PCP: Madeline Florez DO Status: REG CLI Study: Spine Lumbar (Routine) Date of Exam: 08/25/15 Exam# [id number] Ordering Dr: ELIZABETH DE LEON M.D. STUDY: [...] FACR at 17:43 EST , Service support [phone], CC: ELIZABETH DE LEON M.D.; Madeline Florez DO Fiber Locking Supervisor: Signed 25-Aug-2015 Spine Thoracic (Routine) Result: Comments: See Note; NOTES: [facility] Imaging Services [address] [place] [address] [place] 4d Spine Thoracic (Routine) MR#: [id number] Acct: [id number] Name: SHREYAS SHARIF Rep #: [id number] : 1950 F 65 From: Herve Jimenez MD PCP: Madeline Florez DO Status: REG CLI Study: Spine Thoracic (Routine) Date of Exam: 08/25/15 Exam# [id number] Ordering Dr: ELIZABETH RUIZ M.D. STUDY: MRI [...] FACR at 17:45 EST , Service support [phone], CC: ELIZABETH DE LEON M.D.; Komal Florez DO Fiber Locking Supervisor: Signed 17-Aug-2015 Chest PA and Lateral Result: Comments: See Note; NOTES: [facility] Imaging Services [address] [place] [address] Ver[place] 4d Chest PA and Lateral MR#: [id number] Acct: [id number] Name: SHREYAS KATHLEEN Keira Rep #: [id number] : 1950 F 65 From: Elias Finn MD PCP: Madeline Florez DO Status: REG CLI Study: Chest PA and Lateral Date of Exam: 08/17/15 Exam# [id number] Ordering Dr: Madeline Florez DO STUDY: X-RAY [...] Elias Finn MD at 11:09 EST Tel [phone], Service support [phone], Fax RAD/Chest PA and Lateral IMPRESSION: Residual changes persist in the right middle lobe and there has been some improvement. Further followup is recommended. Electr onically Signed: Elias Finn MD at 11:09 EST Tel [phone], Service support [phone], CC: Madeline Florez DO Fiber Locking Supervisor: Signed 12-Aug-2015 Discharge Instruction Result: Comments: See Note; NOTES: [facility] Medical Records Department [address] [place] [address] Discharge Instruction 08/10/15 1702 MR#: [id number] Acct: [id number] Name: SHREYAS KATHLEEN Rep #: [id number] : 1950 65 From: Denny Bone MD [...] problems, contact your doctor. Call [facility] ([phone]) or report to the closest Emergency Room. Call 911 if necessary. 08/12/15 1502 <Elect ronically signed by Denny Bone MD> Date Denny Bone MD Cosigner Signature (If Indicated): Date CC: Madeline Gautam MOY 12-Aug-2015 Emergency Department Summary Result: Comments: See Note; NOTES: [facility] Medical Records Department [address] [place] [address] Emergency Department Summary MR#: [id number] Acct: [id number] Name: SHREYAS KATHLEEN Rep #: [id number] : 1950 65 From: Denny Bone MD [...] the patient had blood cultures obtained at [facility] and they were called to Dr. [...] Nacho Ramirez C: Madeline Bonilla MD T: [facility] JOB: [id number] 08/12/15 1502 <Electronically signed by Denny Bone MD> Date Denny Bone MD Cosigner Signature (If Indicated): Date ___ CC: Madeline Florez DO; Katelyn Arenas MD Date Dictated: 08/10/151708 Date Transcribed: 08/10/151708 Fiber Locking Supervisor: Signed Social History Name Dates Details No [...] kg/m2 Body Surface Area Calculated 1.85 m2 05-Gwh-980134:20 Temperature 97.8 f Comments: Method: Temporal Pulse [...] unknown, given order todayLast vision screen 2014 [place] Temperature 98.3 f Pulse 75 /min Comments: [...] Comments: Jun 19; PATIENT WAS FASTINGPERFORMED BY: [facility] Box OverstocksNew Sunrise [facility] Treatment CenterPobyrj9046 [facility] [id number] (45739) AND (37393) Alb/Creat Ratio 266.9 {mg/g_creat} (Abnormal) Range: 0.0-30.0 Albumin, Urine 168.7 ug/mL (Normal) Creatinine, Urine 63.2 mg/dL (Normal) :00 Metabolic Panel, Comprehensive Comments: Jun 19; PATIENT WAS FASTINGPERFORMED BY: [facility] Box OverstocksInspira [facility] Center Mullica HillEuvnrj4059 [facility] [id number] (04850) ALT (SGPT) 14 [iU]/L (Normal) Range: 0-32 [...] 8-27 Glucose 121 mg/dL (Abnormal) Range: 65-99 25-Qys-69187:00 HGB A1C (09343) Comments: June 19; PATIENT WAS FASTINGPERFORMED BY: [facility] [id number] Hemoglobin A1c 7.0 % (Abnormal) Range: 4.8-5.6 Comments: . Prediabetes: 5.7 - 6.4 Diabetes: >6.4 Glycemic control for adults with diabetes: <7.0 07-Ywf-730771:33 ALKALINE PHOSPHATASE-ISOENZYM Comments: PATIENT NOT FASTINGPERFORMED BY: Libratone70 [facility] [id number] (50568) Intestinal Frac.: 0 % (Normal) Range: 0-18 Bone Fraction: 27 % (Normal) Range: 14-68 Liver Fraction: 73 % (Normal) Range: 18-85 Alkaline Phosphatase 89 [iU]/L (Normal) Range: 39-117 09-Hmv-034285:33 CBC, Platelets & Auto Diff Comments: PATIENT NOT FASTINGPERFORMED BY: [employer] Wridms4400 [facility] [id number] (11750) Immature Grans (Abs) 0.0 {x10E3/uL} (Normal) Range: [...] 3.77-5.28 WBC 5.9 {x10E3/uL} (Normal) Range: 3.4-10.8 25-Zfj-303839:22 HgA1C , Office (78688) Comments: 7.3 HgA1C , Office 7.3 % (Abnormal) Range: 4.6 - 7.1 92-Jue-189031:22 Blood Glucose , Office (48221) Blood Glucose , Office 173 (Normal) 80-Uen-27461:40 Basic Metabolic Profile (BMP) Comments: SEND RESULTS OF BMP TO .[facility] Tbuamfvjyg5517 [facility] [place], [address] GAP 11 (Normal) Range: 5-15 CO2 27.0 [...] A.D.A. criteria.Please note revised GLUCOSE reference range vwjfkiznp13/02/2018. 87-Dth-35137:40 Liver Profile Comments: SEND RESULTS OF BMP TO .[facility] Ssvpzxfcmh3896 [facility] [place], [address] D BILI 0.09 mg/dL (Normal) Range: 0.00-0.30 T BILI 0.40 mg/dL (Normal) Range: 0.20-1.00 ALT 22 U/L (Normal) Range: 13-56 ALK P 103 U/L (Normal) Range: 45-117 AST 17 U/L (Normal) Range: 15-37 GLOB 4.0 g/dL (Normal) Range: 2.2-4.2 ALB 3.8 g/dL (Normal) Range: 3.2-5.0 T PROT 7.8 g/dL (Normal) Range: 6.4-8.2 89-Yuv-590958:41 CALCIFEDIOL (60408) Comments: PATIENT WAS FASTINGPERFORMED BY: LabCoInspira Medical Center Mullica HillIxgwgo2102 [facility] [id number] Vitamin D, 25-Hydroxy 44.2 ng/mL (Normal) Range: 30.0-100.0 Comments: Vitamin D deficiency has been defined by the [place] ofMedicine and an Endocrine Society practice guideline as alevel of serum 25-OH vitamin D less than 20 ng/mL (1,2).The Endocrine Society went on to further define vitamin Dinsufficiency as a level between 21 and 29 ng/mL (2).1. IOM ([place] of Medicine). 2010. Dietary reference intakes for calcium and D. [place]: The National Academies Press.2. Jacinto MF, Eddy NOGUEIRA, Quintin JAVED, et al. Evaluation, treatment, and prevention of vitamin D deficiency: an Endocrine Society clinical practice guideline. JCEM. 2010; 96(7):1911-30. 58-Iuk-061954:41 METABOLIC PANEL, Comments: PATIENT WAS FASTINGPERFORMED BY: [facility]Co Wnqzda2428 [facility] [id number] Information: [id number],T81896; OV 03/19 COMPREHENSIVE (59619) ALT (SGPT) 15 [iU]/L (Normal) Range: 0-32 [...] 8-27 Glucose 143 mg/dL (Abnormal) Range: 65-99 69-Gzk-209112:31 Blood Glucose , Office (54336) Blood Glucose , Office 211 (Normal) 66-Ots-229809:31 HgA1C , Office (95948) HgA1C , Office 6.8 % (Normal) Range: 4.6 - 7.1 :33 CBC, Platelets & Auto Diff Comments: PATIENT WAS FASTINGPERFORMED BY: LabCoIn[facility] Mullica HillJeezcf5006 [facility] [id number] (82951) Immature Grans (Abs) 0.0 {x10E3/uL} (Normal) Range: [...] 3.77-5.28 WBC 7.7 {x10E3/uL} (Normal) Range: 3.4-10.8 37-Jro-454827:33 Lipid Panel (97106) Comments: PATIENT WAS FASTINGPERFORMED BY: 33AcrossInspira Medical Center Mullica HillPreanu8255 [facility] [id number] LDL/HDL Ratio 0.9 {ratio} (Normal) Range: 0.0-3.2 [...] Panel, Comprehensive Comments: PATIENT WAS FASTINGPERFORMED BY: 33[facility]rossInspira Medical Center Mullica HillNbokqx2189 [facility] [id number] (68183) ALT (SGPT) 18 [iU]/L (Normal) Range: 0-32 [...] CREATININE RATIO Comments: PATIENT WAS FASTINGPERFORMED BY: 33AcrossNew Sunrise Regional Treatment CenterFdzkey2622 [facility] [id number] (89444) AND (77943) Alb/Creat Ratio 225.5 {mg/g_creat} (Abnormal) Range: 0.0-30.0 Albumin, Urine 112.5 ug/mL (Normal) Creatinine, Urine 49.9 mg/dL (Normal) : URINALYSIS (18761) Comments: PATIENT WAS FASTINGPERFORMED BY: 33[employer]ross [employer] [facility] [id number] Microscopic Examination See below: (Normal) Comments: Microscopic was indicated and was performed. Nitrite, Urine Negative (Normal) Urobilinogen,Semi-Qn 0.2 mg/dL (Normal) Range: 0.2-1.0 Bilirubin Negative (Normal) Occult Blood Negative (Normal) Ketones Negative (Normal) Glucose Negative (Normal) Protein Trace (Normal) WBC Esterase 2+ (Abnormal) Appearance Clear (Normal) Urine-Color Yellow (Normal) pH 6.5 (Normal) Range: 5.0-7.5 Specific [place] 1.014 (Normal) Range: 1.005-1.030 :33 TSH (41635) Comments: PATIENT WAS FASTINGPERFORMED BY: 33AcrossNew Sunrise Regional Treatment CenterAsxtgi7943 [facility] [id number] TSH 3.870 {uIU/mL} (Normal) Range: 0.450-4.500 :33 Microscopic Examination Comments: PATIENT WAS FASTINGPERFORMED BY: 33AcrossInspira Medical Center Mullica HillOwkwfg7004 [facility] [id number] Bacteria Few (Normal) Mucus Threads Present (Normal) Cast Type Hyaline casts (Normal) Casts Present {/lpf} (Abnormal) Epithelial Cells (non renal) >10 {/hpf} (Abnormal) Range: 0 - 10 RBC 0-2 {/hpf} (Normal) Range: 0 - 2 WBC 11-30 {/hpf} (Abnormal) Range: 0 - 5 :57 HgA1C , Office (46940) Comments: 6.6 HgA1C , Office 6.6 % (Normal) Range: 4.6 - 7.1 :57 Blood Glucose , Office (66050) Blood Glucose , Office 211 (Normal) :53 HEPATIC FUNCTION PANEL Comments: PATIENT NOT FASTINGPERFORMED BY: [facility] [id number] ([id number]) ALT (SGPT) 13 [iU]/L (Normal) Range: 0-32 AST (SGOT) 17 [iU]/L (Normal) Range: 0-40 Alkaline Phosphatase, S 89 [iU]/L (Normal) Range: 39-117 Bilirubin, Direct 0.08 mg/dL (Normal) Range: 0.00-0.40 Bilirubin, Total <0.2 mg/dL (Normal) Range: 0.0-1.2 Albumin, Serum 4.2 g/dL (Normal) Range: 3.6-4.8 Protein, Total, Serum 6.8 g/dL (Normal) Range: 6.0-8.5 :53 WQNPY-JOZBIUKKJLG-JDYFI (71375) Comments: PATIENT NOT FASTINGPERFORMED BY: [facility] [id number] AFP, Serum, Tumor Marker 2.6 ng/mL (Normal) Range: 0.0-8.3 Comments: Usermind ECLIA methodology :53 ALKALINE PHOSPHATASE-ISOENZYM Comments: PATIENT NOT FASTINGPERFORMED BY: [facility] [id number] (03571) Intestinal Frac.: 5 % (Normal) Range: 0-18 Bone Fraction: 24 % (Normal) Range: 14-68 Liver Fraction: 71 % (Normal) Range: 18-85 55-Vnt-098656:11 ALKALINE PHOSPHATASE-ISOENZYM Comments: PATIENT NOT FASTINGPERFORMED BY: [employer] VeekerDublin [place] [id number] (00542) Intestinal Frac.: 3 % (Normal) Range: 0-18 Bone Fraction: 19 % (Normal) Range: 14-68 Liver Fraction: 78 % (Normal) Range: 18-85 Alkaline Phosphatase, S 122 [iU]/L (Abnormal) Range: 39-117 71-Pjb-748937:11 CALCIFEDIOL (46225) Comments: PATIENT NOT FASTINGPERFORMED BY: [facility] Cvubko8560 Santana RoadDublin [place] [id number] Vitamin D, 25-Hydroxy 37.5 ng/mL (Normal) Range: 30.0-100.0 Comments: Vitamin D deficiency has been defined by the [place] of[facility] Hospitalcine and an Endocrine Society practice guideline as alevel of serum 25-OH vitamin D less than 20 ng/mL (1,2).The Endocrine Society went on to further define vitamin Dinsufficiency as a level between 21 and 29 ng/mL (2).1. IOM ([place] of Medicine). 2010. Dietary reference intakes for calcium and D. [place]: The National Academies Press.2. Jacinto MF, Eddy NC, Quintin JAVED, et al. Evaluation, treatment, and prevention of vitamin D deficiency: an Endocrine Society clinical practice guideline. JCEM. 2010; 96(7):1911-30. 87-Vla-759525:11 TSH (76211) Comments: PATIENT NOT FASTINGPERFORMED BY: [facility] Ctecfz0507 Santana RoadDublin [place] [id number] TSH 1.620 {uIU/mL} (Normal) Range: 0.450-4.500 12-Ole-989810:11 T4, FREE (THYROXINE) (56028) Comments: PATIENT NOT FASTINGPERFORMED BY: [facility] Gyykyq8828 Santana RoadDublin [place] [id number] T4,Free(Direct) 1.00 ng/dL (Normal) Range: 0.82-1.77 94-Smn-928294:11 T3, FREE (TRIDOTHYRONINE) (51843) Comments: PATIENT NOT FASTINGPERFORMED BY: [facility] Ggdkno0874 Santana RoadDublin [place] [id number] Triiodothyronine,Free,Serum 2.5 pg/mL (Normal) Range: 2.0-4.4 :08 HgA1C , Office (14247) HgA1C , Office 7.4 % (Abnormal) Range: 4.6 - 7.1 :08 Blood Glucose , Office (92358) Blood Glucose , Office 190 (Normal) :30 Lipid Profile Comments: Order Date: 12/12/16Order Info: 0788-1 - *Hepatic Function PanelOrder Info: [id number] - *Lipid Profile CC PCPComments: 12 hours fasting, may have water.Comments: 6 months / pre next [facility]WM[facility] Froscnxmlv4057 Rafael BatistaLUBB[place], [place], [address] VLDL 46 mg/dL (Abnormal) Range: 5-40 LDL [...] Info: 0788-1 - *Hepatic Function PanelOrder Info: [id number] - *Lipid Profile CC PCPComments: 12 hours fasting, may have water.Comments: 6 months / pre next [facility]WM[facility] Aygmpezevl7066 Rafael Batista [place], [id number] D BILI 0.11 mg/dL (Normal) Range: 0.00-0.30 T BILI 0.40 mg/dL (Normal) Range: 0.20-1.00 ALT 19 U/L (Normal) Range: 12-78 ALK P 132 U/L (Abnormal) Range: 45-117 AST 15 U/L (Normal) Range: 15-37 GLOB 4.3 g/dL (Abnormal) Range: 2.3-3.5 ALB 3.5 g/dL (Normal) Range: 3.4-5.0 T PROT 7.8 g/dL (Normal) Range: 6.4-8.2 5-Fck-163004:55 TSH (THYROID STIMULATING Comments: Week of Apr 09; PATIENT NOT FASTINGPERFORMED BY: [facility] [id number] HORMONE) (35510) TSH 0.728 {uIU/mL} (Normal) Range: 0.450-4.500 :55 HgA1C , Office (56496) HgA1C , Office 6.9 % (Normal) Range: 4.6 - 7.1 :55 Blood Glucose , Office (40333) Blood Glucose , Office 143 (Normal) 51-Uvp-971396:11 Microscopic Examination Comments: PATIENT WAS FASTINGPERFORMED BY: [facility] [id number] Bacteria Few (Normal) Mucus Threads Present (Normal) Cast Type Hyaline casts (Normal) Casts Present {/lpf} (Abnormal) Epithelial Cells (non renal) 0-10 {/hpf} (Normal) Range: 0 - 10 RBC 0-2 {/hpf} (Normal) Range: 0 - 2 WBC 6-10 {/hpf} (Abnormal) Range: 0 - 5 34-Cac-580276:11 URINALYSIS, W/ MICRO (92288) Comments: January 2017; PATIENT WAS FASTINGPERFORMED BY: Swank Santana CollegeFanzUNC Health Johnston [id number] Microscopic Examination See below: (Normal) Comments: Microscopic was indicated and was performed. Nitrite, Urine Negative (Normal) Urobilinogen,Semi-Qn 0.2 mg/dL (Normal) Range: 0.2-1.0 Bilirubin Negative (Normal) Occult Blood Negative (Normal) Ketones Negative (Normal) Glucose Trace (Abnormal) Protein 1+ (Abnormal) WBC Esterase 1+ (Abnormal) Appearance Clear (Normal) Urine-Color Yellow (Normal) pH 6.5 (Normal) Range: 5.0-7.5 Specific [place] 1.016 (Normal) Range: 1.005-1.030 92-Yyd-316514:11 MICROALBUMIN: CREATININE RATIO Comments: January 2017; PATIENT WAS FASTINGPERFORMED BY: 33[facility]rossInspira Medical Center Mullica HillTknxfc2867 [facility] [id number] (84969) AND (66962) Microalb/Creat Ratio 208.2 {mg/g_creat} (Abnormal) Range: 0.0-30.0 Microalbumin, Urine 182.2 ug/mL (Normal) Creatinine, Urine 87.5 mg/dL (Normal) 87-Tvm-462489:11 CBC, Platelets & Auto Diff Comments: January 2017; PATIENT WAS FASTINGPERFORMED BY: 33AcrossInspira Medical Center Mullica HillTudjqy2584 [facility] [id number] (13077) Immature Grans (Abs) 0.0 {x10E3/uL} (Normal) Range: [...] 3.77-5.28 WBC 5.6 {x10E3/uL} (Normal) Range: 3.4-10.8 42-Acy-501614:11 Metabolic Panel, Comprehensive Comments: January 2017; PATIENT WAS FASTINGPERFORMED BY: Swank [facility] [id number] (86199) ALT (SGPT) 13 [iU]/L (Normal) Range: 0-32 [...] Glucose, Serum 120 mg/dL (Abnormal) Range: 65-99 55-Zok-014167:11 TSH (THYROID STIMULATING Comments: January 2017; PATIENT WAS FASTINGPERFORMED BY: Libratone70 [facility] [id number] HORMONE) (27137) TSH 0.982 {uIU/mL} (Normal) Range: 0.450-4.500 3-Exk-349578:02 Lipid Profile Comments: Order Date: 12/04/16Order Info: [id number] - *Hepatic Function PanelOrder Date: 12/04/16Order Info: [id number] - *Lipid Profile CC PCPComments: 12 hours fasting, may have water.[place] [address] [place], [place], [address] VLDL 36 mg/dL (Normal) Range: 5-40 LDL [...] 200-240 mg/dL Borderline >240 mg/dL High Risk 4-Sfu-412570:02 Liver Profile Comments: Order Date: 12/04/16Order Info: [id number] - *Hepatic Function PanelOrder Date: 12/04/16Order Info: [id number] - *Lipid Profile CC PCPComments: 12 hours fasting, may have water.[facility] [place], [place], [address] D BILI 0.07 mg/dL (Normal) Range: 0.00-0.30 T BILI 0.30 mg/dL (Normal) Range: 0.20-1.00 ALT 21 U/L (Normal) Range: 12-78 ALK P 112 U/L (Normal) Range: 45-117 AST 19 U/L (Normal) Range: 15-37 GLOB 3.8 g/dL (Abnormal) Range: 2.3-3.5 ALB 3.4 g/dL (Normal) Range: 3.4-5.0 T PROT 7.2 g/dL (Normal) Range: 6.4-8.2 :29 URINE RANDELL CULTURE-ZEINAB COL Comments: PATIENT NOT FASTINGPERFORMED BY: [employer] Gnffsh9900 [facility] [id number] Information: SRC:UC COUNT (61356) Result 1 MUG (Normal) Comments: Mixed urogenital flora25,000-50,000 colony forming units per mL Urine Final report (Normal) Culture,Comprehensive 21-Puu-879506:53 Urinalysis, Office (27504) UA - LEUKOCYTE ESTERASE Small (Normal) UA - NITRITE Negative (Normal) URINE UROBILINGN ZEINAB TIMED Normal mg/dL (Normal) UA - PROTEIN Negative mg/dL (Normal) UA - PH 7 (Normal) UA - BLOOD Negative (Normal) UA - SPECIFIC GRAVITY 1.020 (Normal) UA - KETONES Negative mg/dL (Normal) UA - BILIRUBIN Small (Normal) UA - GLUCOSE Negative (Normal) 92-Hqy-850400:51 Blood Glucose , Office (57453) Comments: 169 Blood Glucose , Office 169 (Normal) 64-Qei-922119:52 HgA1C , Office (57880) Comments: 7.0 HgA1C , Office 7.0 % (Normal) Range: 4.6 - 7.1 :22 URINE RANDELL CULTURE-IDENTIFICATN Comments: PATIENT NOT FASTINGPERFORMED BY: [facility] Jtetux6144 [facility] [id number] Information: SRC:UC (14988) Result 1 MUG (Normal) Comments: Mixed urogenital flora10,000-25,000 colony forming units per mL Urine Final report (Normal) Culture,Comprehensive :05 Urinalysis, Office (36421) UA - LEUKOCYTE ESTERASE Negative (Normal) UA - NITRITE Negative (Normal) URINE UROBILINGN ZEINAB TIMED Normal mg/dL (Normal) UA - PROTEIN 30 mg/dL (Normal) UA - PH 6 (Abnormal) UA - BLOOD non-hemolyzed trace (Normal) UA - SPECIFIC GRAVITY 1.020 (Normal) UA - KETONES Negative mg/dL (Normal) UA - BILIRUBIN Negative (Normal) UA - GLUCOSE 100 (Abnormal) :42 HgA1C , Office (97762) HgA1C , Office 6.2 % (Normal) Range: 4.6 - 7.1 :42 Blood Glucose , Office (70002) Blood Glucose , Office 137 (Normal) :01 TSH (THYROID STIMULATING Comments: PATIENT NOT FASTINGPERFORMED BY: 33[facility]rossInspira Medical Center Mullica HillIzxbvn4739 [facility] [id number] HORMONE) (74153) TSH 1.820 {uIU/mL} (Normal) Range: 0.450-4.500 :03 HEPATIC FUNCTION PANEL Comments: PATIENT NOT FASTINGPERFORMED BY: 33[facility]rossInspira Medical Center Mullica HillIurpce4250 [facility] [id number] (63152) ALT (SGPT) 15 [iU]/L (Normal) Range: 0-32 AST (SGOT) 23 [iU]/L (Normal) Range: 0-40 Alkaline Phosphatase, S 95 [iU]/L (Normal) Range: 39-117 Bilirubin, Direct 0.12 mg/dL (Normal) Range: 0.00-0.40 Bilirubin, Total 0.3 mg/dL (Normal) Range: 0.0-1.2 Albumin, Serum 4.3 g/dL (Normal) Range: 3.6-4.8 Protein, Total, Serum 7.3 g/dL (Normal) Range: 6.0-8.5 :03 UTMWS-TKZUXVPUGPW-PNVNA (86440) Comments: PATIENT NOT FASTINGPERFORMED BY: 33[facility]rossInspira Medical Center Mullica HillFrmhcs7464 [facility] [id number] AFP, Serum, Tumor Marker 2.8 ng/mL (Normal) Range: 0.0-8.3 Comments: Rosmery ECLIA methodology :03 HEPATITIS PANEL (17467) Comments: PATIENT NOT FASTINGPERFORMED BY: 33[facility]rossInspira Medical Center Mullica HillQucqnk1196 [facility] [id number] Hep C Virus Ab <0.1 {s/co_ratio} (Normal) Range: 0.0-0.9 Comments: Negative: < 0.8 Indeterminate: 0.8 - 0.9 Positive: > 0.9 . The CDC recommends that a positive HCV antibody result be followed up with a HCV Nucleic Acid Amplification test (851228). Hep B Core Ab, IgM Negative (Normal) HBsAg Screen Negative (Normal) Hep A Ab, IgM Negative (Normal) :58 CBC W/Diff, Automated Comments: CBCD [facility] Mnxecuhmfy8289 [address] [place], [place], [address] Absolute Lymph 1.84 {X10_3/ul} (Normal) Range: 0.83-4.51 [...] Comments: Order Date: 05/14/16Interface Comments: Reason:Order Date: 05/14/16[facility] Vqzzfjkgct8159 [address] Bat[place], [address] T4 THYROXIN 11.6 ug/dL (Normal) Range: 4.8-13.9 :58 Thyroid Stim Hormone (TSH) Comments: Order Date: 05/14/16Interface Comments: Reason:Order Date: 05/14/16[facility] Nqzyvitsnz5319Tung Batista [place], [id number] TSH 1.96 {uIU/mL} (Normal) Range: 0.358-3.74 :11 Urinalysis, Office (45939) UA - LEUKOCYTE ESTERASE Small (Normal) UA - NITRITE Negative (Normal) URINE UROBILINGN ZEINAB TIMED Normal mg/dL (Normal) UA - PROTEIN 30 mg/dL (Normal) UA - PH 6 (Abnormal) UA - BLOOD Negative (Normal) UA - SPECIFIC GRAVITY 1.010 (Normal) UA - KETONES Negative mg/dL (Normal) UA - BILIRUBIN Negative (Normal) UA - GLUCOSE Negative (Normal) 96-Xgf-071591:50 Basic Metabolic Profile (BMP) Comments: [facility] Mdxrrncxqd2540Cesar Batista [place], [address] GAP 7 (Normal) Range: 5-15 CO2 33.0 [...] 100 mg/dL (Normal) Range: 70-110 :48 MAGNESIUM (94218) Comments: PATIENT NOT FASTINGPERFORMED BY: [facility]6370 [facility] [id number] Magnesium, Serum 1.6 mg/dL (Normal) Range: 1.6-2.3 :48 TSH (THYROID STIMULATING Comments: PATIENT NOT FASTINGPERFORMED BY: LabCoInspira Medical Center Mullica HillIliqki0315 [facility] [id number] HORMONE) (12086) TSH 6.340 {uIU/mL} (Abnormal) Range: 0.450-4.500 :48 URIC ACID BLOOD (06597) Comments: PATIENT NOT FASTINGPERFORMED BY: [facility]Mar[facility]6370 [facility] [id number] Uric Acid, Serum 6.1 mg/dL (Normal) Range: 2.5-7.1 Comments: Therapeutic target for gout patients: <6.0 :09 Blood Glucose , Office (41191) Blood Glucose , Office 116 (Normal) :09 HgA1C , Office (19608) HgA1C , Office 6.7 % (Normal) Range: 4.6 - 7.1 :19 Basic Metabolic Profile (BMP) Comments: Order Date: 03/12/16OV Order #: [id number] Regional Medical Center Hfnyyswzhf[address] [place], [address] GAP 7 (Normal) Range: 5-15 CO2 29.0 [...] Thyroxin Comments: Order Date: 03/12/16 Order #: [id number] Hospital Lygalqfbfh64[address] [place], [place], [address] T4 THYROXIN 9.4 ug/dL (Normal) Range: 4.8-13.9 :19 Thyroid Stim Hormone (TSH) Comments: Order Date: 03/12/16 Order #: [id number] Hospital Xmicasozfe89[address] [place], [place], [address] TSH 5.44 {uIU/mL} (Abnormal) Range: 0.358-3.74 :49 Aerobic Bacterial Culture Comments: PATIENT NOT FASTINGPERFORMED BY: NEY LabGenesis Mediadewayne PrabhakarPqxksv6895 [facility] [id number] Information: RT AXILLA Result 1 MRSA (Abnormal) [...] (Normal) Comments: PATIENT NOT FASTINGPERFORMED BY: [facility] Utpohx6037 [place] [id number] Information: NASAL 5:49 Culture 47-Con-048260:20 Basic Metabolic Profile (BMP) Comments: [facility] Egardihzew[address] [place], [place], [address] GAP 7 (Normal) Range: 5-15 CO2 29.0 [...] A.D.A. criteria. :02 Blood Glucose , Office (92420) Blood Glucose , Office 137 (Normal) :54 Urine Drug Screen (Office - WNL (Normal) Comments: pos for oxy, all else neg Urine Drug Screen 6 Panel) Comments: All negative except Oxy (53370) :52 HgA1C , Office (21670) Comments: 7.3 HgA1C , Office 7.3 % (Abnormal) Range: 4.6 - 7.1 2-Iiu-015497:43 Basic Metabolic Profile (BMP) Comments: DR URBINA ORDERED BMPDR MALCOLM ORDERED LIVER LIPIDWTrumbull Regional Medical Center Harzptnvro[address] [place], [address] GAP 3 (Abnormal) Range: 5-15 CO2 33.0 mmol/L (Abnormal) Range: 21.0-32.0 CL 102 mmol/L (Normal) Range: 98-107 K 3.4 mmol/L (Abnormal) Range: 3.5-5.1 Comments: ADDENDA: Denisse at [facility] aware of potassium level NA 138 [...] 7-18 GLU 101 mg/dL (Normal) Range: 70-110 5-Mak-601859:43 Lipid Profile Comments: DR URBINA ORDERED [facility] The Kitchen HotlineW ORDERED LIVER LIPIDGerman Hospital Wdtxaiareu0119 [facility] [place], [address] VLDL 26 mg/dL (Normal) [...] 200-240 mg/dL Borderline >240 mg/dL High Risk 0-Exk-570216:43 Liver Profile Comments: DR URBINA ORDERED [facility] CENTERMavizonMDW ORDERED LIVER LIPIDGerman Hospital Rdsdtyjfbe49[address] [place], [address] D BILI 0.14 mg/dL (Normal) Range: 0.00-0.30 T BILI 0.40 mg/dL (Normal) Range: 0.20-1.00 ALT 16 U/L (Normal) Range: 12-78 ALK P 112 U/L (Normal) Range: 50-136 AST 19 U/L (Normal) Range: 15-37 GLOB 3.9 g/dL (Abnormal) Range: 2.3-3.5 ALB 3.0 g/dL (Abnormal) Range: 3.4-5.0 T PROT 6.9 g/dL (Normal) Range: 6.4-8.2 :02 Blood Glucose , Office (45471) Blood Glucose , Office 160 (Normal) 00-Znc-428438:37 HgA1C , Office (54505) Comments: 7.2 HgA1C , Office 7.2 % (Abnormal) Range: 4.6 - 7.1 :24 MRSA Culture (63590) Comments: [facility] [address] [place] [address], [id number] MRSA RESULT Negative (Normal) 5-Ezq-434234:59 Metabolic Panel, Basic Comments: send to Dr.Masroor Urbina; PATIENT NOT FASTINGPERFORMED BY: [facility] Opiewk1895 [facility] [id number] Information: [id number] (90696) Calcium, Serum 10.7 mg/dL (Abnormal) Range: 8.7-10.3 [...] Glucose, Serum 182 mg/dL (Abnormal) Range: 65-99 :09 MRSA Culture (09065) Comments: [facility] Flnwgyrlpu[address]. [place], [address] MRSA RESULT POSITIVE (Abnormal) :39 Lipid Profile Comments: [facility] Xutmuenniq33[address] [place], [address] VLDL 23 mg/dL (Normal) Range: 5-40 [...] mg/dL High Risk :39 Liver Profile Comments: [facility] Zdjnbcbmqj5[address] [place], [address] ; non-emergent and handled by [...] Range: 6.4-8.2 :39 T4 Total, Thyroxin Comments: [facility] Lfgzrmczlz[address] [place], [address] T4 THYROXIN 10.9 ug/dL (Normal) Range: 4.8-13.9 :39 Thyroid Stim Hormone (TSH) Comments: [facility] Azoxrleasq[address] [place], [address] TSH 3.63 {uIU/mL} (Normal) Range: 0.358-3.74 :13 LIPID PANEL (96886) Comments: PATIENT WAS FASTINGPERFORMED BY: [facility]6370 [facility] [id number] LDL/HDL Ratio 1.2 {ratio_units} (Normal) Range: 0.0-3.2 [...] Cholesterol, Total 160 mg/dL (Normal) Range: 100-199 4-Ceq-003050:13 CBC W/AUTO DIFF WBC Comments: PATIENT WAS FASTINGPERFORMED BY: [facility] StrategiesMarlette [facility] Hospital6370 [facility] [id number] Information: [id number] (57883) Immature Grans (Abs) 0.0 {x10E3/uL} (Normal) Range: [...] 3.77-5.28 WBC 4.5 {x10E3/uL} (Normal) Range: 3.4-10.8 7-Tce-937594:13 METABOLIC PANEL, COMPREHENSIVE Comments: PATIENT WAS FASTINGPERFORMED BY: LabCoInspira Medical Center Mullica HillBxvgqu5714 [facility] [id number] (08040) ALT (SGPT) 8 [iU]/L (Normal) Range: 0-32 [...] Glucose, Serum 109 mg/dL (Abnormal) Range: 65-99 9-Mwj-232535:15 Basic Metabolic Profile (BMP) Comments: [facility] Boxkxtonxu[address] [place], [place], [address] GAP 7 (Normal) Range: 5-15 CO2 30.0 [...] 200 mg/dLsuggests DIABETES MELLITUS per A.D.A. criteria. 0-Bxf-924400:15 CBC W/Diff, Automated Comments: [facility] [address] [place], [place], [address] Absolute Lymph 0.95 {X10_3/ul} (Normal) Range: 0.83-4.51 [...] K/mm3 (Normal) Range: 4.4-11.0 :31 LIPID PANEL (90232) Comments: PATIENT WAS FASTINGPERFORMED BY: LabMarlette Regional Hospital6370 [facility] [id number]; non-emergent till apt LDL/HDL Ratio 1.6 {ratio_units} [...] PATIENT WAS FASTINGPERFORMED BY: LabCoInspira Medical Center Mullica HillKgnzal6178 [facility] [id number] Information: [id number] (67626) Immature Grans (Abs) 0.0 {x10E3/uL} (Normal) Range: [...] 3.77-5.28 WBC 5.2 {x10E3/uL} (Normal) Range: 3.4-10.8 32-Mlk-792715:31 MICROALBUMIN: CREATININE RATIO Comments: PATIENT WAS FASTINGPERFORMED BY: [facility]6370 [facility] [id number] (23583) AND (89266) Microalb/Creat Ratio 93.7 {mg/g_creat} (Abnormal) Range: 0.0-30.0 Microalbumin, Urine 196.4 ug/mL (Abnormal) Range: 0.0-17.0 Creatinine, Urine 209.7 mg/dL (Normal) Range: 15.0-278.0 :31 METABOLIC PANEL, COMPREHENSIVE Comments: PATIENT WAS FASTINGPERFORMED BY: 33[employer] Mlqyyn4684 [facility] [id number] (58632) ALT (SGPT) 20 [iU]/L (Normal) Range: 0-32 [...] Glucose, Serum 120 mg/dL (Abnormal) Range: 65-99 :31 Hemoglobin Glyclated (HGB A1C) Comments: PATIENT WAS FASTINGPERFORMED BY: 33[employer]ross Pzyctk0545 [facility] [id number] (41486) Hemoglobin A1c 7.6 % (Abnormal) Range: 4.8-5.6 Comments: . Pre-diabetes: 5.7 - 6.4 Diabetes: >6.4 Glycemic control for adults with diabetes: <7.0 42-Fzs-588689:30 Urinalysis, Complete Comments: Order Date: 07/18/15How was Urine Obtained? CLEAN [facility] Znbgwdniet[address] [place], [place], [address] MUCUS, URINE 0 SEEN {/hpf} (Normal) BACTERIA [...] (Abnormal) CLARITY Clear (Normal) COLOR Yellow (Normal) 50-Ivy-977439:43 CBC W/Diff, Automated Comments: [facility] Djsoxjibxn[address] [place], [place], [address] PATH REV May foll (Normal) SMEAR COMMENT [...] 4.2-5.4 WBC 15.1 K/mm3 (Abnormal) Range: 4.4-11.0 36-Slg-830678:43 Comprehensive Metabolic Profil Comments: [facility] Jyrjyagqrq14[address] [facility] [place], [address] GAP 8 (Normal) Range: 5-15 CO2 33.0 [...] Comments: To be drawn 6H after initial specimenWTrumbull Regional Medical Center Getbrkoygr[address] [place], [place], [address](684) LACTIC ACID 1.7 mmol/L (Normal) Range: 0.4-2.0 :43 Magnesium Comments: [facility] [address] [place], [address] MG 1.3 mg/dL (Abnormal) Range: 1.8-2.4 :43 Partial Thromboplast Time Comments: [facility] [address] [place], [place], [address](438) PTT 31.4 s (Normal) Range: 24.1-36.2 :43 Phosphorus Comments: [facility] [address] [place], [address] PHOS 1.0 mg/dL (Abnormal) Range: 2.5-4.9 Comments: Critical Result(s) Called at: 17:06:16 07/18/2015 by:Stacey ibarra rn :43 Prothrombin Time w/INR Comments: [facility] [address] [place], [place], [address](419) INR 0.9 (Normal) PROTIME 12.8 s (Normal) [...] with abnormal findings in adult : Reviewed Boiler Maker Letter Indication: Encounter for annual general [...] - Strool Based DNA Test, CRC SCREEN (11645)Indication: Encounter for screening for malignant neoplasm of colon (Renamed from Special screening for malignant neoplasms, colon) On: 26-Ukz-174987:05 Request FECAL OCCULT- Tubes sent home (62759)Indication: Encounter for screening for malignant neoplasm of colon (Renamed from Special screening for malignant neoplasms, colon) On: 80-Kui-370534:09 Request Lipid Panel (10544)Indication: Diabetes mellitus type 2, insulin dependent On: 89-Maj-997903:08 Request Comments: around January Metabolic Panel, Comprehensive (87129)Indication: Diabetes mellitus type 2, insulin dependent On: 70-Cvv-109553:08 Request Comments: around January CBC, Platelets & Auto Diff (43021)Indication: Diabetes mellitus type 2, insulin dependent On: 35-Xrg-348294:08 Request Comments: around January TSH (36256)Indication: Diabetes mellitus type 2, insulin dependent On: 28-Kbo-382545:08 Request Comments: around January Rapid Flu (11376 x 2)Indication: Unspecified Diagnosis On: :33 Request CBC & PLATELETS (AUTO) (95297)Indication: Abdominal pain On: 9-Lpm-349633:57 Request CULTURE, NOSE (18076)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 On: :31 Request Comments: check for MRSA MRSA Culture ([id number])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 On: 43-Ztw-800986:23 Request Comments: rt axila HgA1C , Office ([id number])Indication: Diabetes mellitus type 2, insulin dependent On: 74-Abg-047496:21 Request Urinalysis, Office ([id number])Indication: History of MRSA infection On: :42 Request Hemoglobin Glyclated (HGB A1C) ([id number])Indication: Diabetes mellitus type 2, uncontrolled On: 39-Bgk-999738:46 Request MICROALBUMIN: CREATININE RATIO ([id number]) AND ([id number])Indication: Hypertensive heart disease without heart failure On: 16-Mky-066934:46 Request Planned Encounters Medical; 3 Month FU - On: 28-Jul-2018 13:30 [facility] Elsa Chopra CNP, CNP, Mary E Planned Procedures SPIROMETRY PERFORMED ([id number])By: On: 25-Jun-2018 Intent Visit, Nurse SPIROMETRY PERFORMED ([id number])By: On: 25-Jun-2018 Intent Visit, Nurse SIX MINUTE WALK TEST ([id number])By: On: 25-Jun-2018 Intent Visit, Nurse Flu Vaccine (Quadrivalent) [id number]: On: 20-May-2018 Intent Karly Chandra DEXA SCAN AXIAL SKELETON ([id number])By: On: 18-Dec-2017 Intent Elsa Chopra CNP, CNP, Mary E SCREENING DIGITAL TOMOSYNTHESIS OF On: 18-Dec-2017 Intent BREAST ([id number])By: Elsa Chopra CNP, CNP, Mary E Flu Vaccine (Quadrivalent) [id number]: On: 11-Jun-2017 Intent Elsa Chopra CNP, CNP, Mary E Comments: InfluenzaLot #[id number]-L dltd, IMDose prefilled syringeVIS and ABN signedgiven by:GENARO blackwood PHYSICAL THERAPY TREATMENT On: 11-Dec-2016 Intent ([id number])By: Adelita Doshi LPN PHYSICAL THERAPY EVALUATION On: 11-Dec-2016 Intent ([id number])By: Elsa Chopra CNP, CNP, Mary E Toradol Injection, 30 mg On: 10-Dec-2016 Intent ([id number])By: Elsa Chopra CNP, CNP, Mary E Radiology - Hip - RightBy: Nav On: 10-Dec-2016 Intent Elsa MCKINLEY CNP, Mary E Aerosol Treatment ([id number])By: Tico On: 16-Oct-2016 Intent Adelita LAM Flu Vaccine (Quadrivalent) [id number]: On: 11-Jul-2016 Intent Elsa Chopra CNP, CNP, Mary E Comments: FLUlot: [id number]:01/16site:Lt deltoidroute:IMdose:.5mlDEMICK, [place] Ultrasound - Abdomen CompleteBy: On: 03-Jul-2016 Intent Elsa Chopra CNP, CNP, Mary E Radiology - KUBBy: Elsa Chopra CNP On: 03-Jul-2016 Intent Elsa العلي CNP DRAIN/INJECT SMALL JOINT OR BURSA On: 18-May-2016 Intent ()By: Elsa Chopra CNP Comments: to left wrist joint 1/2 cc kenalog, 1/2 cc marcaine. Kenalog lot [id number] exp Marcain lot [id number] ex Elsa MCKINLEY MAMMOGRAM, SCREENING, BOTH BREAST On: 11-May-2016 Intent ([id number])By: Elsa Chopra CNP, CNP, Mary E Radiology [...] mellitus without complication) : DISCONTINUED - URINALYSIS ([id number]) Indication: Diabetes mellitus type II, controlled, with no complications (Renamed from Controlled type 2 diabetes mellitus without complication) CKD (chronic kidney disease), stage III : DISCONTINUED - MICROALBUMIN: CREATININE RATIO ([id number]) AND ([id number]) Indication: CKD (chronic kidney disease), stage III Diabetes mellitus type II, controlled, with no complications (Renamed from Controlled type 2 diabetes mellitus without complication) : DISCONTINUED - CBC, PLATELETS & AUT DIFF ([id number]) Indication: Diabetes mellitus type II, controlled, with no complications (Renamed from Controlled type 2 diabetes mellitus without complication) Diabetes mellitus type II, controlled, with no complications (Renamed from Controlled type 2 diabetes mellitus without complication) : DISCONTINUED - METABOLIC PANEL, COMPREHENSIVE ([id number]) Indication: Diabetes mellitus type II, controlled, with no complications (Renamed from Controlled type 2 diabetes mellitus without complication) Diabetes mellitus type II, controlled, with no complications (Renamed from Controlled type 2 diabetes mellitus without complication) : DISCONTINUED - TSH ([id number]) Indication: Diabetes mellitus type II, controlled, with [...] dependent : DISCONTINUED - METABOLIC PANEL, BASIC ([id number]) Indication: Diabetes mellitus type 2, insulin dependent [...] 2, insulin dependent Encounters Office Visit On: 25-Jun-2018 14:44 Encounter Reason: [...] patient does not have durable power of per diem or living will. The patient has noticed getting bored, poor spirits most of time and lack of energy. Other providers contributing to the lyndsey bolton's care are club licensee () and urologist (). Note for Annual [...] and is sleeping poorly. Patient has been [employer] End: 18-Dec-2017 14:15 pliant with instructions. Current [...] and is sleeping poorly. Patient has been [employer] End: 18-Sep-2017 13:50 pliant with instructions. Current [...] hospital - Reason for ER visit: note: ([facility]. ). The patient feels well with minor [...] MRSA. She has had pre-op testing at [facility] on 10-14-2015, for Lumbar microdecompression for 10-24-[address]or Dr. Dahl for papers to be signed [...] - sharp pain- went to [facility] ER). 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
--- OUTSIDE RECORDS SUMMARY | 2018-09-25 14:42 | XMS RPT_ITS | Continuity of Care Document ---
:1950 Author Organization [facility] Address [facility] [address] [place] [address] Phone Care Team Providers Name Role Phone [...] [phone]) Comments: follows with Dr. Munguia in [place], seen for sarcoidosis currently, stableGFR 42 Status: [...] on wean of steroid Scale 201-250. 5 opbva401-825 8 jhiaz421-629 10 briut775-944 12 units>401 15 unitsad ding metformin not [...] given in L arm subcutaneously paitent tolerated wellLOT#[id number]#2020 NOV 06 Status: Active Postmenopausal (Renamed from Postmenopausal status) (Z78.0, V49.81) Status: Active Pregnancies () Comments: 1. 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) Comments: Sees Ciara at [facility] for sarcoid in bone marrow [...] Refills: 6 Ordered:12-May-2018 Nav MCKINLEY, Elsa Reyes BAGEL MAKER, Elsa Luke Start : 12-May-2018 Active Citalopram Hydrobromide 40 MG Oral Tablet 1/2 tab tablet tablet daily for 30 days Quantity: 30 {Tablet} Refills: 3 Ordered:02-May-2018 Nav MCKINLEY, Elsa Reyes CNP, Elsa Luke Start : 02-May-2018 Active Cyclobenzaprine HCl 10 MG Oral Tablet 1 (one) Tablet as needed for 0 days Quantity: 30 {Tablet} Refills: 0 Ordered:11-Jun-2017 Nav MCKINLEY, Elsa Reyes BAGEL MAKER, Elsa Luke Start : 11-Jun-2017 Active Comments:Medication [...] Mickey Start : 18-Jul-2015 Active VITAMIN D3, 89682GETL (Oral Capsule) 1 (one) Capsule Capsule once [...] Refills: 0 Ordered:12-Mar-2016 Nav ARLEN Elsa Reyes BAGEL MAKER, Elsa Luke Start : 12-Mar-2016 End : [...] q12hrs (100 MG) End : 05-Aug-2015 Discontinued Comments:[facility] MUPIROCIN, 2% (External Ointment) 1 [...] : 05-Aug-2015 Discontinued Comments:1,250mg IV q24hrs x 42ehip2,500mg IV q24hrs #14 Allergies and Adverse Reactions [...] Comments: was seeing Dr. Munguia's partner in [place] Dr. Morel, gfr 43%, has proteinuria Status: [...] Visit Report Result: Comments: See Note; NOTES: [facility] [place] [address] OFFICE VISIT Date of Service: 02/17/18 MR#: [id number] Acct: [id number] Name: SHREYAS KATHLEEN Rep #: [id number] : 1950 Provider: Casey Fowler MD Age/Sex: 67/F Location: 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 Atherosclerosis of curyung coronary artery of curyung heart without angina pectoris I25.10 Mild Plan [...] arise. This note was generated using a [employer] system and there may be incorrect words, spelling or punctuation that were not noted when reviewing the office note prior to saving. Follow Up 9 Months Coding Level of Care Code Off vis,est,leathae l 4 Diagnoses Atherosclerosis of curyung coronary artery of curyung heart without angina pectoris I25.10 [place] vs. transplanted heart: curyung heart Paroxysmal atrial fibrillation I48.0 Hyperlipidemia, u nspecified hyperlipidemia type E78.5 Hyperlipidemia type: unspecified Essential hypertension I10 Hypertension type: essential hypertension Long-term use of high-risk medication Z79.899 Coding Level of Care Code Off vis,est,level 4 Diagnoses Atherosclerosis of curyung coronary artery of curyung heart without angina pectoris I25.10 [place] vs. transplanted heart: curyung heart Paroxysmal atrial fibrillat ion I48.0 Hyperlipidemia, unspecified hyperlipidemia type E78.5 Hyperlipidemia type: unspecified Essential hypertension I10 Hypertension type: essential hypertension Long-term use of high-risk medicatio n Z79.899 02/17/18 1530 <Electronically signed by Casey Fowler MD> Date Casey Fowler MD Cosigner Signature: Date _ (if applicable) CC: Elsa Chopra NP 14-Feb-2018 SCREENING MAMM (CAD), BILAT Result: Comments: See Note; NOTES: [facility] Imaging Services [address] [place] [address] SCREENING MAMM (CAD), BILAT MR#: [id number] Acct: [id number] Name: SHREYAS KATHLEEN Rep #: [id number] : 1950 F 67 From: Elias Finn MD PCP: Elsa Chopra NP Status: REG CLI Study: SCREENING MAMM (CAD), BILAT Date of Exam: 02/14/18 Exam# [id number] Ordering Dr: Elsa Chopra MAMMO GRAPHY - [...] these results will be sent to the [facility] by the facility within 30 days. Approximately 10% of breast cancers are not detected by mammography. A normal mammogram should not delay biopsy of a clinically suspicious abnormality. [id number] Elect ronically Signed: Elias Finn MD at 8:30 EDT Tel [phone], Service support , CC: Elsa Chopra NP Machine Helper: Signed 21-Jan-2018 Dexa Bone Density Study Result: Comments: See Note; NOTES: [facility] Imaging Services [address] [place] [address] Dexa Bone Density Study MR#: [id number] Acct: [id number] Name: SHREYAS KATHLEEN Rep #: [id number] : 1950 F 67 From: Elias Finn MD PCP: Elsa Chopra NP Status: REG CLI Study: Dexa Bone Density Study Date of Exam: 01/21/18 Exam# [id number] Ordering Dr: Elsa Chopra STUDY: DUAL E [...] Elias Finn MD at 15:36 EDT Tel [phone], Service support , CC: Elsa Chopra NP Machine Helper: Signed 10-Dec-2016 Hip 2-3 Views with Pelvis Result: Comments: See Note; NOTES: [facility] Imaging Services [address] [place] [address] Verdana 4d Hip 2-3 Views with Pelvis MR#: [id number] Acct: [id number] Name: SHREYAS KATHLEEN Rep #: [id number] : 1950 F 66 From: Herve Jimenez MD PCP: Elsa Chopra Status: REG CLI Study: Hip 2-3 Views with Pelvis Date of Exam: 12/10/16 Exam# [id number] Ordering Dr: Elsa Chopra STUDY : X-RAY [...] FACR at 11:31 EDT , Service support [phone], CC: Elsa Chopra Machine Helper: Signed 05-Jul-2016 Abdomen Complete Result: Comments: See Note; NOTES: [facility] Imaging Services [address] [place] [address] Verdana 4d Abdomen Complete MR#: [id number] Acct: [id number] Name: SHREYAS KATHLEEN Keira Rep #: [id number] : 1950 F 66 From: Elias Finn MD PCP: Elsa Chopra Status: REG CLI Study: Abdomen Complete Date of Exam: 07/05/16 Exam# [id number] Ordering Dr: Elsa Chopra STUDY: ABDOMINAL ULTRASOUND [...] Elias Finn MD at 9:35 EDT Tel [phone], Service support [phone], CC: Elsa Chopra Machine Helper: Signed 05-Jul-2016 Abdomen Single View Result: Comments: See Note; NOTES: [facility] Imaging Services [address] [place] [address] Nidiasusi 4d Abdomen Single View MR#: [id number] Acct: [id number] Name: SHREYAS KATHLEEN Rep #: [id number] : 1950 F 66 From: Elias Finn MD PCP: Elsa Chopra Status: REG CLI Study: Abdomen Single View Date of Exam: 07/05/16 Exam# [id number] Ordering Dr: Elsa Chopra STUDY: X-RA Y [...] of the L1 vertebrae. ORDER # : [id number] RAD/Abdomen Single View IMPRESSION: Moderate amount of fecal material is seen in the colon. Electronically Signed: Elias Finn MD at 10:34 EDT Tel [phone], Service sup port [phone], CC: Elsa Chopra Machine Helper: Signed 18-May-2016 Bilat Scrn Digital AND CAD Result: Comments: See Note; NOTES: [facility] Imaging Services [address] [place] [address] Verdana 4d Bilat Scrn Digital AND CAD MR#: [id number] Acct: [id number] Name: JACINTO KATHLEEN Rep #: [id number] : 1950 F 65 From: Elias Finn MD PCP: Elsa Chopra Status: REG CLI Study: Bilat Scrn Digital AND CAD Date of Exam: 05/18/16 Exam# [id number] Ordering Dr: Elsa Chopra MAMMOGRAPHY - BILATERAL [...] biopsy of a clinically suspicious abnor mality. [id number] Electronically Signed: Elias Finn MD at 12:53 EDT Tel [phone], Service support [phone], CC: Elsa Chopra Machine Helper: Signed 14-Feb-2016 Shoulder min 2 Views Result: Comments: See Note; NOTES: [facility] Imaging Services [address] [place] [address] Verdavinayak 4d Shoulder min 2 Views MR#: [id number] Acct: [id number] Name: SHREYAS KATHLEEN Rep #: [id number] : 1950 F 65 From: Herve Jimenez MD PCP: Madeline Florez DO Status: REG CLI Study: Shoulder min 2 Views Date of Exam: 02/14/16 Exam# [id number] Ordering Dr: Pascale Boston DO STUDY: X-RAY [...] FACR at 14:50 EDT , Service support [phone], Fax RAD/Shoulder min 2 Views IMPRESSION: Bilateral of the acromioclavicular joint, otherwise normal x-ray examination of the shoulder. Electronically Signed: Herve Jimenez MD, FACR at 14:50 EDT , Service support [phone], CC: Pascale Boston DO; Madeline Florez DO Machine Helper: Signed 21-Oct-2015 Spirometry (82991) Comments: mod restriction Result: 19-Sep-2015 Chest PA and Lateral Result: Comments: See Note; NOTES: [facility] Imaging Services [address] [place] [address] [place] [address] Verdana 4d Chest PA and Lateral MR#: [id number] Acct: [id number] Name: SHREYAS KATHLEEN Rep #: [id number] : 1950 F 65 From: Elias Finn MD PCP: Madeline Florez DO Status: REG CLI Study: Chest PA and Lateral Date of Exam: 09/19/15 Exam# [id number] Ordering Dr: Madeline Florez DO STUDY: X-RAY [...] Elias Finn MD at 13:58 EST Tel [phone], Service support [phone], RAD/Chest PA and Lateral IMPRESSION: Stable examination. No acute abnormality is seen. Electronically Doris d: Elias Finn MD at 13:58 EST Tel [phone], Service support [phone], CC: Madeline Florez DO Machine Helper: Signed 25-Aug-2015 Spine Lumbar (Routine) Result: Comments: See Note; NOTES: [facility] Imaging Services [address] [place] [address] Verdana 4d Spine Lumbar (Routine) MR#: [id number] Acct: [id number] Name: SHREYAS MAJOR Rep #: [id number] : 1950 F 65 From: Herve Jimenez MD PCP: Madeline Florez DO Status: REG CLI Study: Spine Lumbar (Routine) Date of Exam: 08/25/15 Exam# [id number] Ordering Dr: ELIZABETH DE LEON M.D. STUDY: [...] FACR at 17:43 EST , Service support [phone], CC: ELIZABETH DE LEON M.D.; Madeline Florez DO Machine Helper: Signed 25-Aug-2015 Spine Thoracic (Routine) Result: Comments: See Note; NOTES: [facility] Imaging Services [address] [place] [address] 4d Spine Thoracic (Routine) MR#: [id number] Acct: [id number] Name: SHREYAS SHARIF Rep #: [id number] : 1950 F 65 From: Herve Jimenez MD PCP: Madeline Florez DO Status: REG CLI Study: Spine Thoracic (Routine) Date of Exam: 08/25/15 Exam# [id number] Ordering Dr: ELIZABETH RUIZ M.D. STUDY: MRI [...] FACR at 17:45 EST , Service support [phone], CC: ELIZABETH DE LEON M.D.; Komal Florez DO Machine Helper: Signed 17-Aug-2015 Chest PA and Lateral Result: Comments: See Note; NOTES: [facility] Imaging Services [address] [place] [address] Verdana 4d Chest PA and Lateral MR#: [id number] Acct: [id number] Name: SHREYAS KATHLEEN Rep #: [id number] : 1950 F 65 From: Elias Finn MD PCP: Madeline Florez DO Status: REG CLI Study: Chest PA and Lateral Date of Exam: 08/17/15 Exam# [id number] Ordering Dr: Madeline Florez DO STUDY: X-RAY [...] Elias Finn MD at 11:09 EST Tel [phone], Service support [phone], Fax RAD/Chest PA and Lateral IMPRESSION: Residual changes persist in the right middle lobe and there has been some improvement. Further followup is recommended. Electr onically Signed: Elias Finn MD at 11:09 EST Tel [phone], Service support [phone], CC: Madeline Florez DO Machine Helper: Signed 12-Aug-2015 Discharge Instruction Result: Comments: See Note; NOTES: [facility] Medical Records Department [address] [place] [address] Discharge Instruction 08/10/15 1702 MR#: [id number] Acct: [id number] Name: SHREYAS KATHLEEN Rep #: [id number] : 1950 65 From: Denny Bone MD [...] problems, contact your doctor. Call [facility] ([phone]) or report to the closest Emergency Room. Call 911 if necessary. 08/12/15 1502 <Elect ronically signed by Denny Bone MD> Date Denny Bone MD Cosigner Signature (If Indicated): Date CC: Madeline Gautam OMY 12-Aug-2015 Emergency Department Summary Result: Comments: See Note; NOTES: [facility] Medical Records Department [address] [place] [address] Emergency Department Summary MR#: [id number] Acct: [id number] Name: SHREYAS KATHLEEN Rep #: [id number] : 1950 65 From: Denny Bone MD [...] Madeline Bonilla MD T: [facility] JOB: [id number] 08/12/15 1502 <Electronically signed by Denny Bone MD> Date Denny Bone MD Cosigner Signature (If Indicated): Date ___ CC: Madeline Florez DO; Katelyn Arenas MD Date Dictated: 08/10/151708 Date Transcribed: 08/10/151708 Machine Helper: Signed Social History Name Dates Details No Caffeine Use Status: Active No Drug Use Status: Active Non Drinker/No Alcohol Use Status: Active Tobacco use: Never smoker. Status: Active Smoking Status Name Dates Details Never smoker Vital Signs Date Test Result Details 63-Wrv-685589:51 Comments: was tested for cateracts in sep [...] kg/m2 Body Surface Area Calculated 1.85 m2 74-Epa-415069:20 Temperature 97.8 f Comments: Method: Temporal Pulse [...] unknown, given order todayLast vision screen 2014 [employer] Temperature 98.3 f Pulse 75 /min Comments: [...] Size: Large Results Date Description Value Details 19-Orz-37406: MICROALBUMIN: CREATININE RATIO Comments: Jun 19; PATIENT WAS FASTINGPERFORMED BY: PeerTraderHampton [facility] CenterBsyioy5279 [facility] [id number] (99271) AND (59893) Alb/Creat Ratio 266.9 {mg/g_creat} (Abnormal) Range: 0.0-30.0 Albumin, Urine 168.7 ug/mL (Normal) Creatinine, Urine 63.2 mg/dL (Normal) :00 Metabolic Panel, Comprehensive Comments: Jun 19; PATIENT WAS FASTINGPERFORMED BY: LabCoHam[facility] Health CenterTijeas8873 [facility] [id number] (13158) ALT (SGPT) 14 [iU]/L (Normal) Range: 0-32 [...] mg/dL (Abnormal) Range: 65-99 :00 HGB A1C (36286) Comments: June 19; PATIENT WAS FASTINGPERFORMED BY: [facility] [facility] [id number] Hemoglobin A1c 7.0 % (Abnormal) Range: 4.8-5.6 Comments: . Prediabetes: 5.7 - 6.4 Diabetes: >6.4 Glycemic control for adults with diabetes: <7.0 84-Fbk-710430:33 ALKALINE PHOSPHATASE-ISOENZYM Comments: PATIENT NOT FASTINGPERFORMED BY: [facility] [facility] [id number] (23888) Intestinal Frac.: 0 % (Normal) Range: 0-18 Bone Fraction: 27 % (Normal) Range: 14-68 Liver Fraction: 73 % (Normal) Range: 18-85 Alkaline Phosphatase 89 [iU]/L (Normal) Range: 39-117 08-Voz-613824:33 CBC, Platelets & Auto Diff Comments: PATIENT NOT FASTINGPERFORMED BY: [facility]6[address] [facility] [id number] (77091) Immature Grans (Abs) 0.0 {x10E3/uL} (Normal) Range: [...] 3.77-5.28 WBC 5.9 {x10E3/uL} (Normal) Range: 3.4-10.8 66-Kbi-511704:22 HgA1C , Office (26905) Comments: 7.3 HgA1C , Office 7.3 % (Abnormal) Range: 4.6 - 7.1 :22 Blood Glucose , Office (12243) Blood Glucose , Office 173 (Normal) :40 Basic Metabolic Profile (BMP) Comments: SEND RESULTS OF BMP TO .[facility] [address] [place], [address] GAP 11 (Normal) Range: 5-15 CO2 27.0 [...] A.D.A. criteria.Please note revised GLUCOSE reference range bhhizserq12/02/2018. :40 Liver Profile Comments: SEND RESULTS OF BMP TO .[facility] [address] [place], [address] D BILI 0.09 mg/dL (Normal) Range: 0.00-0.30 T BILI 0.40 mg/dL (Normal) Range: 0.20-1.00 ALT 22 U/L (Normal) Range: 13-56 ALK P 103 U/L (Normal) Range: 45-117 AST 17 U/L (Normal) Range: 15-37 GLOB 4.0 g/dL (Normal) Range: 2.2-4.2 ALB 3.8 g/dL (Normal) Range: 3.2-5.0 T PROT 7.8 g/dL (Normal) Range: 6.4-8.2 :41 CALCIFEDIOL (87799) Comments: PATIENT WAS FASTINGPERFORMED BY: [facility]70 [facility] [id number] Vitamin D, 25-Hydroxy 44.2 ng/mL (Normal) Range: 30.0-100.0 Comments: Vitamin D deficiency has been defined by the [place] of[place]icine and an Endocrine Society practice guideline as alevel of serum 25-OH vitamin D less than 20 ng/mL (1,2).The Endocrine Society went on to further define vitamin Dinsufficiency as a level between 21 and 29 ng/mL (2).1. IOM ([place] of Medicine). 2010. Dietary reference intakes for calcium and D. [place]: The National Academies Press.2. Jacinto MF, Eddy [place], Quintin JVAED, et al. Evaluation, treatment, and prevention of vitamin D deficiency: an Endocrine Society clinical practice guideline. JCEM. 2010; 96(7):1911-30. :41 METABOLIC PANEL, Comments: PATIENT WAS FASTINGPERFORMED BY: PeerTraderHam[facility] CenterNpqxpd8316 [facility] [id number] Information: 878640,K22230; OV 03/19 COMPREHENSIVE (54600) ALT (SGPT) 15 [iU]/L (Normal) Range: 0-32 [...] 8-27 Glucose 143 mg/dL (Abnormal) Range: 65-99 15-Rzk-571894:31 Blood Glucose , Office (14921) Blood Glucose , Office 211 (Normal) 26-Beh-374544:31 HgA1C , Office (05880) HgA1C , Office 6.8 % (Normal) Range: 4.6 - 7.1 49-Fxm-581211:33 CBC, Platelets & Auto Diff Comments: PATIENT WAS FASTINGPERFORMED BY: [facility] Wywjwn8948 [facility] [id number] (22737) Immature Grans (Abs) 0.0 {x10E3/uL} (Normal) Range: [...] 3.77-5.28 WBC 7.7 {x10E3/uL} (Normal) Range: 3.4-10.8 58-Vox-702256:33 Lipid Panel (74268) Comments: PATIENT WAS FASTINGPERFORMED BY: [facility]70 [facility] ControlC[facility] [id number] LDL/HDL Ratio 0.9 {ratio} (Normal) Range: 0.0-3.2 Comments: LDL/HDL Ratio Men Women 1/2 Avg.Risk 1.0 1.5 Av g.Risk 3.6 3.2 2X Avg.Risk 6.2 5.0 3X Avg.Risk 8.0 6.1 LDL Cholesterol Calc 35 mg/dL (Normal) Range: 0-99 VLDL Cholesterol Kiesha 53 mg/dL (Abnormal) Range: 5-40 HDL Cholesterol 41 mg/dL (Normal) Triglycerides 264 mg/dL (Abnormal) Range: 0-149 Cholesterol, Total 129 mg/dL (Normal) Range: 100-199 54-Xrf-751771:33 Metabolic Panel, Comprehensive Comments: PATIENT WAS FASTINGPERFORMED BY: [facility]6[address] [facility] [id number] (07898) ALT (SGPT) 18 [iU]/L (Normal) Range: 0-32 [...] 8-27 Glucose 150 mg/dL (Abnormal) Range: 65-99 08-Qye-558063:33 MICROALBUMIN: CREATININE RATIO Comments: PATIENT WAS FASTINGPERFORMED BY: PeerTraderHampton [facility] Health CenterTfjacl2674 [facility] [id number] (36475) AND (67380) Alb/Creat Ratio 225.5 {mg/g_creat} (Abnormal) Range: 0.0-30.0 Albumin, Urine 112.5 ug/mL (Normal) Creatinine, Urine 49.9 mg/dL (Normal) 25-Lse-321041:33 URINALYSIS (31360) Comments: PATIENT WAS FASTINGPERFORMED BY: LabCoHam[facility] Health CenterIbhsid0779 [facility] [id number] Microscopic Examination See below: (Normal) Comments: Microscopic was indicated and was performed. Nitrite, Urine Negative (Normal) Urobilinogen,Semi-Qn 0.2 mg/dL (Normal) Range: 0.2-1.0 Bilirubin Negative (Normal) Occult Blood Negative (Normal) Ketones Negative (Normal) Glucose Negative (Normal) Protein Trace (Normal) WBC Esterase 2+ (Abnormal) Appearance Clear (Normal) Urine-Color Yellow (Normal) pH 6.5 (Normal) Range: 5.0-7.5 Specific Mutual 1.014 (Normal) Range: 1.005-1.030 40-Cuv-150456:33 TSH (52918) Comments: PATIENT WAS FASTINGPERFORMED BY: [facility] [id number] TSH 3.870 {uIU/mL} (Normal) Range: 0.450-4.500 79-Pnb-587788:33 Microscopic Examination Comments: PATIENT WAS FASTINGPERFORMED BY: Isto TechnologiesC[facility] [id number] Bacteria Few (Normal) Mucus Threads Present (Normal) Cast Type Hyaline casts (Normal) Casts Present {/lpf} (Abnormal) Epithelial Cells (non renal) >10 {/hpf} (Abnormal) Range: 0 - 10 RBC 0-2 {/hpf} (Normal) Range: 0 - 2 WBC 11-30 {/hpf} (Abnormal) Range: 0 - 5 64-Qmj-885114:57 HgA1C , Office (13633) Comments: 6.6 HgA1C , Office 6.6 % (Normal) Range: 4.6 - 7.1 28-Dzo-426836:57 Blood Glucose , Office (50362) Blood Glucose , Office 211 (Normal) 91-Krw-115221:53 HEPATIC FUNCTION PANEL Comments: PATIENT NOT FASTINGPERFORMED BY: Isto TechnologiesC[facility] [id number] (62905) ALT (SGPT) 13 [iU]/L (Normal) Range: 0-32 AST (SGOT) 17 [iU]/L (Normal) Range: 0-40 Alkaline Phosphatase, S 89 [iU]/L (Normal) Range: 39-117 Bilirubin, Direct 0.08 mg/dL (Normal) Range: 0.00-0.40 Bilirubin, Total <0.2 mg/dL (Normal) Range: 0.0-1.2 Albumin, Serum 4.2 g/dL (Normal) Range: 3.6-4.8 Protein, Total, Serum 6.8 g/dL (Normal) Range: 6.0-8.5 :53 BPVXJ-XQEHHQPPNKF-ONKQF (99195) Comments: PATIENT NOT FASTINGPERFORMED BY: CB [facility] Tqwdov[address] RoadDublin [place] [id number] AFP, Serum, Tumor Marker 2.6 ng/mL (Normal) Range: 0.0-8.3 Comments: Rosmery ECLIA methodology :53 ALKALINE PHOSPHATASE-ISOENZYM Comments: PATIENT NOT FASTINGPERFORMED BY: CB [facility] Kytcbj3886 [address] RoadDublin [place] [id number] (15763) Intestinal Frac.: 5 % (Normal) Range: 0-18 Bone Fraction: 24 % (Normal) Range: 14-68 Liver Fraction: 71 % (Normal) Range: 18-85 82-Qpw-707244:11 ALKALINE PHOSPHATASE-ISOENZYM Comments: PATIENT NOT FASTINGPERFORMED BY: CB [facility] Icmgpx5[address]ublin [place] [id number] (87377) Intestinal Frac.: 3 % (Normal) Range: 0-18 Bone Fraction: 19 % (Normal) Range: 14-68 Liver Fraction: 78 % (Normal) Range: 18-85 Alkaline Phosphatase, S 122 [iU]/L (Abnormal) Range: 39-117 58-Kbx-209028:11 CALCIFEDIOL (55435) Comments: PATIENT NOT FASTINGPERFORMED BY: CB [facility] Naowwh5504 [address] RoadDublin [place] [id number] Vitamin D, 25-Hydroxy 37.5 ng/mL (Normal) Range: 30.0-100.0 Comments: Vitamin D deficiency has been defined by the [place] of[place]icine and an Endocrine Society practice guideline as alevel of serum 25-OH vitamin D less than 20 ng/mL (1,2).The Endocrine Society went on to further define vitamin Dinsufficiency as a level between 21 and 29 ng/mL (2).1. IOM ([place] of Medicine). 2010. Dietary reference intakes for calcium and D. [place]: The National Academies Press.2. Jacinto MF, Eddy NOGUEIRA, Quintin JAVED, et al. Evaluation, treatment, and prevention of vitamin D deficiency: an Endocrine Society clinical practice guideline. JCEM. 2010; 96(7):1911-30. :11 TSH (12205) Comments: PATIENT NOT FASTINGPERFORMED BY: [facility] Iuksea64[address] RoadDublin [place] [id number] TSH 1.620 {uIU/mL} (Normal) Range: 0.450-4.500 :11 T4, FREE (THYROXINE) (91279) Comments: PATIENT NOT FASTINGPERFORMED BY: [facility] Kudmwq85[address] RoadDublin [place] [id number] T4,Free(Direct) 1.00 ng/dL (Normal) Range: 0.82-1.77 :11 T3, FREE (TRIDOTHYRONINE) (02856) Comments: PATIENT NOT FASTINGPERFORMED BY: [facility] [address] [facility]bl[facility] [place] [id number] Triiodothyronine,Free,Serum 2.5 pg/mL (Normal) Range: 2.0-4.4 :08 HgA1C , Office (13648) HgA1C , Office 7.4 % (Abnormal) Range: 4.6 - 7.1 :08 Blood Glucose , Office (76859) Blood Glucose , Office 190 (Normal) 8-Mho-077673:30 Lipid Profile Comments: Order Date: 12/12/16Order Info: 0788-1 - *Hepatic Function PanelOrder Info: 47639-1 - *Lipid Profile CC PCPComments: 12 hours fasting, may have water.Comments: 6 months / [facility] [address] [place], [address] VLDL 46 mg/dL (Abnormal) Range: 5-40 LDL [...] 200-240 mg/dL Borderline >240 mg/dL High Risk 4-Ipf-232792:30 Liver Profile Comments: Order Date: 12/12/16Order Info: 0788-1 - *Hepatic Function PanelOrder Info: 72852-7 - *Lipid Profile CC PCPComments: 12 hours fasting, may have water.Comments: 6 months / pre [facility] Pkdxhxywxf8797 [facility] [place], [address] D BILI 0.11 mg/dL (Normal) Range: 0.00-0.30 [...] of Apr 09; PATIENT NOT FASTINGPERFORMED BY: LabCoHam[facility] Behavior[facility] Health CenterOmtyyl1720 [facility] [facility] [id number] HORMONE) (94749) TSH 0.728 {uIU/mL} (Normal) Range: 0.450-4.500 :55 HgA1C , Office (52708) HgA1C , Office 6.9 % (Normal) Range: 4.6 - 7.1 :55 Blood Glucose , Office (39487) Blood Glucose , Office 143 (Normal) 49-Ssh-589121:11 Microscopic Examination Comments: PATIENT WAS FASTINGPERFORMED BY: PeerTrader American Board of Addiction Medicine (ABAM) [facility] [id number] Bacteria Few (Normal) Mucus Threads Present (Normal) Cast Type Hyaline casts (Normal) Casts Present {/lpf} (Abnormal) Epithelial Cells (non renal) 0-10 {/hpf} (Normal) Range: 0 - 10 RBC 0-2 {/hpf} (Normal) Range: 0 - 2 WBC 6-10 {/hpf} (Abnormal) Range: 0 - 5 83-Bvw-158028:11 URINALYSIS, W/ MICRO (92259) Comments: January 2017; PATIENT WAS FASTINGPERFORMED BY: Medafor [facility] [id number] Microscopic Examination See below: (Normal) Comments: Microscopic was indicated and was performed. Nitrite, Urine Negative (Normal) Urobilinogen,Semi-Qn 0.2 mg/dL (Normal) Range: 0.2-1.0 Bilirubin Negative (Normal) Occult Blood Negative (Normal) Ketones Negative (Normal) Glucose Trace (Abnormal) Protein 1+ (Abnormal) WBC Esterase 1+ (Abnormal) Appearance Clear (Normal) Urine-Color Yellow (Normal) pH 6.5 (Normal) Range: 5.0-7.5 Specific Mutual 1.016 (Normal) Range: 1.005-1.030 33-Sjk-391071:11 MICROALBUMIN: CREATININE RATIO Comments: January 2017; PATIENT WAS FASTINGPERFORMED BY: [employer] American Board of Addiction Medicine (ABAM) [facility] [id number] (49658) AND (46508) Microalb/Creat Ratio 208.2 {mg/g_creat} (Abnormal) Range: 0.0-30.0 Microalbumin, Urine 182.2 ug/mL (Normal) Creatinine, Urine 87.5 mg/dL (Normal) 40-Jzg-145729:11 CBC, Platelets & Auto Diff Comments: January 2017; PATIENT WAS FASTINGPERFORMED BY: [employer] American Board of Addiction Medicine (ABAM) [facility] [id number] (13773) Immature Grans (Abs) 0.0 {x10E3/uL} (Normal) Range: [...] 3.77-5.28 WBC 5.6 {x10E3/uL} (Normal) Range: 3.4-10.8 46-Ewq-311896:11 Metabolic Panel, Comprehensive Comments: January 2017; PATIENT WAS FASTINGPERFORMED BY: [facility]CoHam[facility] CenterEyjwcx5457 [facility] [id number] (36670) ALT (SGPT) 13 [iU]/L (Normal) Range: 0-32 [...] Glucose, Serum 120 mg/dL (Abnormal) Range: 65-99 62-Euk-730970:11 TSH (THYROID STIMULATING Comments: January 2017; PATIENT WAS FASTINGPERFORMED BY: [facility] Fomrnw9536 [facility] [id number] HORMONE) (02857) TSH 0.982 {uIU/mL} (Normal) Range: 0.450-4.500 5-Guq-793566:02 Lipid Profile Comments: Order Date: 12/04/16Order Info: [id number] - *Hepatic Function PanelOrder Date: 12/04/16Order Info: [id number] - *Lipid Profile CC PCPComments: 12 hours fasting, may have water.[facility] [address] [place], [address] VLDL 36 mg/dL (Normal) Range: [...] 200-240 mg/dL Borderline >240 mg/dL High Risk 0-Znd-639660:02 Liver Profile Comments: Order Date: 12/04/16Order Info: [id number] - *Hepatic Function PanelOrder Date: 12/04/16Order Info: [id number] - *Lipid Profile CC PCPComments: 12 hours fasting, may have water.[address] [place], [place], [address] D BILI 0.07 mg/dL (Normal) Range: 0.00-0.30 T BILI 0.30 mg/dL (Normal) Range: 0.20-1.00 ALT 21 U/L (Normal) Range: 12-78 ALK P 112 U/L (Normal) Range: 45-117 AST 19 U/L (Normal) Range: 15-37 GLOB 3.8 g/dL (Abnormal) Range: 2.3-3.5 ALB 3.4 g/dL (Normal) Range: 3.4-5.0 T PROT 7.2 g/dL (Normal) Range: 6.4-8.2 60-Ycq-039431:29 URINE RANDELL CULTURE-ZEINAB COL Comments: PATIENT NOT FASTINGPERFORMED BY: [facility]CoHampton [facility] CenterEjfcdp0752 [facility] [id number] Information: SRC:UC COUNT (77643) Result 1 MUG (Normal) Comments: Mixed urogenital flora25,000-50,000 colony forming units per mL Urine Final report (Normal) Culture,Comprehensive 59-Xmq-403744:53 Urinalysis, Office (25440) UA - LEUKOCYTE ESTERASE Small (Normal) UA - NITRITE Negative (Normal) URINE UROBILINGN ZEINAB TIMED Normal mg/dL (Normal) UA - PROTEIN Negative mg/dL (Normal) UA - PH 7 (Normal) UA - BLOOD Negative (Normal) UA - SPECIFIC GRAVITY 1.020 (Normal) UA - KETONES Negative mg/dL (Normal) UA - BILIRUBIN Small (Normal) UA - GLUCOSE Negative (Normal) 94-Gbw-989330:51 Blood Glucose , Office (96531) Comments: 169 Blood Glucose , Office 169 (Normal) 89-Smc-561622:52 HgA1C , Office (99670) Comments: 7.0 HgA1C , Office 7.0 % (Normal) Range: 4.6 - 7.1 :22 URINE RANDELL CULTURE-IDENTIFICATN Comments: PATIENT NOT FASTINGPERFORMED BY: Peer[employer] American Board of Addiction Medicine (ABAM) [facility] [id number] Information: SRC:UC (46369) Result 1 MUG (Normal) Comments: Mixed urogenital flora10,000-25,000 colony forming units per mL Urine Final report (Normal) Culture,Comprehensive 91-Fxr-630111:05 Urinalysis, Office (98557) UA - LEUKOCYTE ESTERASE Negative (Normal) UA - NITRITE Negative (Normal) URINE UROBILINGN ZEINAB TIMED Normal mg/dL (Normal) UA - PROTEIN 30 mg/dL (Normal) UA - PH 6 (Abnormal) UA - BLOOD non-hemolyzed trace (Normal) UA - SPECIFIC GRAVITY 1.020 (Normal) UA - KETONES Negative mg/dL (Normal) UA - BILIRUBIN Negative (Normal) UA - GLUCOSE 100 (Abnormal) 1-Uom-879886:42 HgA1C , Office (91583) HgA1C , Office 6.2 % (Normal) Range: 4.6 - 7.1 :42 Blood Glucose , Office (42909) Blood Glucose , Office 137 (Normal) 3-Rjr-630868:01 TSH (THYROID STIMULATING Comments: PATIENT NOT FASTINGPERFORMED BY: PeerTrader Annztj8641 [facility] [id number] HORMONE) (62442) TSH 1.820 {uIU/mL} (Normal) Range: 0.450-4.500 0-Ftb-414857:03 HEPATIC FUNCTION PANEL Comments: PATIENT NOT FASTINGPERFORMED BY: [employer] American Board of Addiction Medicine (ABAM) [facility] [id number] (92418) ALT (SGPT) 15 [iU]/L (Normal) Range: 0-32 AST (SGOT) 23 [iU]/L (Normal) Range: 0-40 Alkaline Phosphatase, S 95 [iU]/L (Normal) Range: 39-117 Bilirubin, Direct 0.12 mg/dL (Normal) Range: 0.00-0.40 Bilirubin, Total 0.3 mg/dL (Normal) Range: 0.0-1.2 Albumin, Serum 4.3 g/dL (Normal) Range: 3.6-4.8 Protein, Total, Serum 7.3 g/dL (Normal) Range: 6.0-8.5 :03 IECFW-VIWVSSGHFAM-HZABO (42475) Comments: PATIENT NOT FASTINGPERFORMED BY: PeerTraderHampton Behavioral Health CenterJbtxen4727 [facility] [id number] AFP, Serum, Tumor Marker 2.8 ng/mL (Normal) Range: 0.0-8.3 Comments: Rosmery ECLIA methodology :03 HEPATITIS PANEL (19318) Comments: PATIENT NOT FASTINGPERFORMED BY: [facility]TraderHampton [facility] Health CenterOzfzix2131 [facility] [id number] Hep C Virus Ab <0.1 {s/co_ratio} (Normal) Range: 0.0-0.9 Comments: Negative: < 0.8 Indeterminate: 0.8 - 0.9 Positive: > 0.9 . The CDC recommends that a positive HCV antibody result be followed up with a HCV Nucleic Acid Amplification test (633332). Hep B Core Ab, IgM Negative (Normal) HBsAg Screen Negative (Normal) Hep A Ab, IgM Negative (Normal) :58 CBC W/Diff, Automated Comments: CBCD FOR DR GAOinscription house health centerisma [facility] [address] [place], [place], [address] Absolute Lymph 1.84 {X10_3/ul} (Normal) Range: 0.83-4.51 [...] Comments: Order Date: 05/14/16Interface Comments: Reason:Order Date: 05/14/16[facility] [address] [place], [address] T4 THYROXIN 11.6 ug/dL (Normal) Range: 4.8-13.9 :58 Thyroid Stim Hormone (TSH) Comments: Order Date: 05/14/16Interface Comments: Reason:Order Date: 05/14/16[facility] [address] [place], [address] TSH 1.96 {uIU/mL} (Normal) Range: 0.358-3.74 9-Lxu-835204:11 Urinalysis, Office (48546) UA - LEUKOCYTE ESTERASE Small (Normal) UA - NITRITE Negative (Normal) URINE UROBILINGN ZEINAB TIMED Normal mg/dL (Normal) UA - PROTEIN 30 mg/dL (Normal) UA - PH 6 (Abnormal) UA - BLOOD Negative (Normal) UA - SPECIFIC GRAVITY 1.010 (Normal) UA - KETONES Negative mg/dL (Normal) UA - BILIRUBIN Negative (Normal) UA - GLUCOSE Negative (Normal) 38-Dix-569756:50 Basic Metabolic Profile (BMP) Comments: [facility] [address] [place], [address] GAP 7 (Normal) Range: 5-15 CO2 33.0 [...] 100 mg/dL (Normal) Range: 70-110 :48 MAGNESIUM (55311) Comments: PATIENT NOT FASTINGPERFORMED BY: CliqSearch70 [facility] [id number] Magnesium, Serum 1.6 mg/dL (Normal) Range: 1.6-2.3 :48 TSH (THYROID STIMULATING Comments: PATIENT NOT FASTINGPERFORMED BY: [employer] [facility] [id number] HORMONE) (97998) TSH 6.340 {uIU/mL} (Abnormal) Range: 0.450-4.500 :48 URIC ACID BLOOD (47798) Comments: PATIENT NOT FASTINGPERFORMED BY: [employer] [facility] [id number] Uric Acid, Serum 6.1 mg/dL (Normal) Range: 2.5-7.1 Comments: Therapeutic target for gout patients: <6.0 :09 Blood Glucose , Office (12905) Blood Glucose , Office 116 (Normal) : HgA1C , Office (14735) HgA1C , Office 6.7 % (Normal) Range: 4.6 - 7.1 53-Uup-670000:19 Basic Metabolic Profile (BMP) Comments: Order Date: 03/12/16 Order #: [id number] Grove City Methodist Hospital [address] [place], [place], [address] GAP 7 (Normal) Range: 5-15 CO2 29.0 [...] 7-18 GLU 107 mg/dL (Normal) Range: 70-110 69-Qow-707248:19 T4 Total, Thyroxin Comments: Order Date: 03/12/16 Order #: [id number] Grove City Methodist Hospital [address] [place], [place], [address] T4 THYROXIN 9.4 ug/dL (Normal) Range: 4.8-13.9 83-Ubr-093093:19 Thyroid Stim Hormone (TSH) Comments: Order Date: 03/12/16 Order #: [id number] Grove City Methodist Hospital [address] [place], [place], [address] TSH 5.44 {uIU/mL} (Abnormal) Range: 0.358-3.74 02-Jop-675173:49 Aerobic Bacterial Culture Comments: PATIENT NOT FASTINGPERFORMED BY: LabCoSteven Ville 5697270 [facility] [id number] Information: RT AXILLA Result 1 MRSA (Abnormal) [...] Negative (Normal) Comments: PATIENT NOT FASTINGPERFORMED BY: LabCo[address] [id number] Information: NASAL 5:49 Culture 15-Jjg-798461:20 Basic Metabolic Profile (BMP) Comments: [facility] [address] [place], [place], [address] GAP 7 (Normal) Range: 5-15 CO2 29.0 [...] A.D.A. criteria. :02 Blood Glucose , Office (35541) Blood Glucose , Office 137 (Normal) :54 Urine Drug Screen (Office - WNL (Normal) Comments: pos for oxy, all else neg Urine Drug Screen 6 Panel) Comments: All negative except Oxy (31766) :52 HgA1C , Office (91903) Comments: 7.3 HgA1C , Office 7.3 % (Abnormal) Range: 4.6 - 7.1 :43 Basic Metabolic Profile (BMP) Comments: DR URBINA ORDERED BMPDR MALCOLM ORDERED LIVER LIPIDOhiohealth Grove City Methodist Hospital [address]yortc[address]67 [facility] [place], [address] GAP 3 (Abnormal) Range: 5-15 CO2 33.0 mmol/L (Abnormal) Range: 21.0-32.0 CL 102 mmol/L (Normal) Range: 98-107 K 3.4 mmol/L (Abnormal) Range: 3.5-5.1 Comments: ADDENDA: Denisse at [facility] aware of potassium level NA 138 [...] 7-18 GLU 101 mg/dL (Normal) Range: 70-110 9-Dmy-430520:43 Lipid Profile Comments: DR URBINA ORDERED BMPDR MOODISPAW ORDERED LIVER LIPIDWUniversity Hospitals [facility] [address] [place], [address] VLDL 26 mg/dL (Normal) Range: [...] 200-240 mg/dL Borderline >240 mg/dL High Risk 9-Itm-029039:43 Liver Profile Comments: DR URBINA ORDERED BMPDR MOODISPAW ORDERED LIVER LIPIDWUniversity Hospitals Portage Medical Center [address] [place], [address] D BILI 0.14 mg/dL (Normal) Range: 0.00-0.30 T BILI 0.40 mg/dL (Normal) Range: 0.20-1.00 ALT 16 U/L (Normal) Range: 12-78 ALK P 112 U/L (Normal) Range: 50-136 AST 19 U/L (Normal) Range: 15-37 GLOB 3.9 g/dL (Abnormal) Range: 2.3-3.5 ALB 3.0 g/dL (Abnormal) Range: 3.4-5.0 T PROT 6.9 g/dL (Normal) Range: 6.4-8.2 2-Bhf-972458:02 Blood Glucose , Office (87910) Blood Glucose , Office 160 (Normal) 08-Vdu-460637:37 HgA1C , Office (75214) Comments: 7.2 HgA1C , Office 7.2 % (Abnormal) Range: 4.6 - 7.1 92-Puy-802893:24 MRSA Culture (09459) Comments: [facility] [address] [place], [address] MRSA RESULT Negative (Normal) 4-Siw-824286:59 Metabolic Panel, Basic Comments: send to Dr.Masroor Urbina; PATIENT NOT FASTINGPERFORMED BY: [facility] Faglzl8921 [facility] [id number] Information: [id number] (62348) Calcium, Serum 10.7 mg/dL (Abnormal) Range: 8.7-10.3 [...] Glucose, Serum 182 mg/dL (Abnormal) Range: 65-99 2-Lns-121297:09 MRSA Culture (98244) Comments: [facility] [address] [place], [address] MRSA RESULT POSITIVE (Abnormal) 83-Aeb-16290:39 Lipid Profile Comments: [address] [place], [address] VLDL 23 mg/dL (Normal) Range: [...] mg/dL High Risk :39 Liver Profile Comments: [facility] [address] [place], [place], [address] ; non-emergent and handled by cardio D BILI 0.14 mg/dL (Normal) Range: 0.00-0.30 T BILI 0.50 mg/dL (Normal) Range: 0.20-1.00 ALT 38 U/L (Normal) Range: 12-78 ALK P 79 U/L (Normal) Range: 50-136 AST 47 U/L (Abnormal) Range: 15-37 GLOB 4.3 g/dL (Abnormal) Range: 2.3-3.5 ALB 3.5 g/dL (Normal) Range: 3.4-5.0 T PROT 7.8 g/dL (Normal) Range: 6.4-8.2 :39 T4 Total, Thyroxin Comments: [facility] [address] [place], [address] T4 THYROXIN 10.9 ug/dL (Normal) Range: 4.8-13.9 :39 Thyroid Stim Hormone (TSH) Comments: [facility] [address] [place], [address] TSH 3.63 {uIU/mL} (Normal) Range: 0.358-3.74 9-Kpz-910585:13 LIPID PANEL (86604) Comments: PATIENT WAS FASTINGPERFORMED BY: LabCoHampton Behavioral Health CenterSfbfnw6546 [facility] [id number] LDL/HDL Ratio 1.2 {ratio_units} (Normal) Range: 0.0-3.2 [...] Cholesterol, Total 160 mg/dL (Normal) Range: 100-199 0-Zry-550284:13 CBC W/AUTO DIFF WBC Comments: PATIENT WAS FASTINGPERFORMED BY: PeerTraderHampton Behavioral Health CenterHywwbn2079 [facility] [id number] Information: [id number] (91205) Immature Grans (Abs) 0.0 {x10E3/uL} (Normal) Range: [...] 3.77-5.28 WBC 4.5 {x10E3/uL} (Normal) Range: 3.4-10.8 1-Rhm-229478:13 METABOLIC PANEL, COMPREHENSIVE Comments: PATIENT WAS FASTINGPERFORMED BY: [facility]6370 [facility] [id number] (63246) ALT (SGPT) 8 [iU]/L (Normal) Range: 0-32 [...] Glucose, Serum 109 mg/dL (Abnormal) Range: 65-99 7-Ozf-411422:15 Basic Metabolic Profile (BMP) Comments: [facility] [address] [place], [address] GAP 7 (Normal) Range: 5-15 CO2 30.0 [...] 200 mg/dLsuggests DIABETES MELLITUS per A.D.A. criteria. 2-Dqs-719824:15 CBC W/Diff, Automated Comments: [facility] [address] [place], [place], [address] Absolute Lymph 0.95 {X10_3/ul} (Normal) Range: 0.83-4.51 [...] K/mm3 (Normal) Range: 4.4-11.0 :31 LIPID PANEL (33706) Comments: PATIENT WAS FASTINGPERFORMED BY: [facility]BaseM[facility]6370 [facility] [id number]; non-emergent till apt LDL/HDL Ratio 1.6 {ratio_units} [...] auto diff Comments: PATIENT WAS FASTINGPERFORMED BY: PeerTraderHampton Behavioral Health CenterUafymg8148 [facility] [id number] Information: [id number] (29774) Immature Grans (Abs) 0.0 {x10E3/uL} (Normal) Range: [...] CREATININE RATIO Comments: PATIENT WAS FASTINGPERFORMED BY: [facility] MedicalGuadalupe [facility] HospitalArswvs9687 [facility] [id number] (87415) AND (30971) Microalb/Creat Ratio 93.7 {mg/g_creat} (Abnormal) Range: 0.0-30.0 Microalbumin, Urine 196.4 ug/mL (Abnormal) Range: 0.0-17.0 Creatinine, Urine 209.7 mg/dL (Normal) Range: 15.0-278.0 :31 METABOLIC PANEL, COMPREHENSIVE Comments: PATIENT WAS FASTINGPERFORMED BY: Med ePad Dapwvy8709 [facility] [id number] (05006) ALT (SGPT) 20 [iU]/L (Normal) Range: 0-32 [...] Glucose, Serum 120 mg/dL (Abnormal) Range: 65-99 75-Bol-700016:31 Hemoglobin Glyclated (HGB A1C) Comments: PATIENT WAS FASTINGPERFORMED BY: LabCoHampton Behavioral Health CenterVohcqk9193 [facility] [id number] (83230) Hemoglobin A1c 7.6 % (Abnormal) Range: 4.8-5.6 Comments: . Pre-diabetes: 5.7 - 6.4 Diabetes: >6.4 Glycemic control for adults with diabetes: <7.0 55-Mwz-226681:30 Urinalysis, Complete Comments: Order Date: 07/18/15How was Urine Obtained? [facility] [address] [place], [place], [address] MUCUS, URINE 0 SEEN {/hpf} (Normal) BACTERIA [...] (Abnormal) CLARITY Clear (Normal) COLOR Yellow (Normal) 87-Ywe-351011:43 CBC W/Diff, Automated Comments: [facility] [address] [place], [place], [address] PATH REV May foll (Normal) SMEAR COMMENT [...] Range: 4.4-11.0 :43 Comprehensive Metabolic Profil Comments: [facility] [address] [place], [place], [address] GAP 8 (Normal) Range: 5-15 CO2 33.0 [...] Comments: To be drawn 6H after initial specimenWUniversity Hospitals Portage Medical Center [address]hsfr[address] [place], [place], [address] LACTIC ACID 1.7 mmol/L (Normal) Range: 0.4-2.0 92-Ceq-582463:43 Magnesium Comments: [facility] [address] [place], [address] MG 1.3 mg/dL (Abnormal) Range: 1.8-2.4 75-Ufl-610901:43 Partial Thromboplast Time Comments: [facility] [address] [place], [address] PTT 31.4 s (Normal) Range: 24.1-36.2 67-Vea-944556:43 Phosphorus Comments: [facility] [address] [place], [address] PHOS 1.0 mg/dL (Abnormal) Range: 2.5-4.9 Comments: Critical Result(s) Called at: 17:06:16 07/18/2015 by:Stacey ibarra rn 41-Ghx-798828:43 Prothrombin Time w/INR Comments: [facility] [address] [place], [address] INR 0.9 (Normal) PROTIME 12.8 s (Normal) [...] with abnormal findings in adult : Reviewed Global Process Owner Letter Indication: Encounter for annual general medical [...] DF then follow up q 3 months [facility] Indication: Constipation Hypertensive heart disease without [...] - Strool Based DNA Test, CRC SCREEN (71772)Indication: Encounter for screening for malignant neoplasm of colon (Renamed from Special screening for malignant neoplasms, colon) On: 32-Iyg-426515:05 Request FECAL OCCULT- Tubes sent home (94139)Indication: Encounter for screening for malignant neoplasm of colon (Renamed from Special screening for malignant neoplasms, colon) On: 19-Mcq-274530:09 Request Lipid Panel (70838)Indication: Diabetes mellitus type 2, insulin dependent On: 82-Jat-312493:08 Request Comments: around January Metabolic Panel, Comprehensive (98970)Indication: Diabetes mellitus type 2, insulin dependent On: 03-Lie-938240:08 Request Comments: around January CBC, Platelets & Auto Diff (60608)Indication: Diabetes mellitus type 2, insulin dependent On: 85-Dtu-083976:08 Request Comments: around January TSH (59200)Indication: Diabetes mellitus type 2, insulin dependent On: 00-Pac-211060:08 Request Comments: around January Rapid Flu (37885 x 2)Indication: Unspecified Diagnosis On: 49-Qgr-15338:33 Request CBC & PLATELETS (AUTO) (29502)Indication: Abdominal pain On: 2-Bjb-791928:57 Request CULTURE, NOSE (66334)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 On: 67-Gvd-412127:31 Request Comments: check for MRSA MRSA Culture (95368)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 On: 33-Faz-170254:23 Request Comments: rt axila HgA1C , Office (41809)Indication: Diabetes mellitus type 2, insulin dependent On: 07-Sly-949245:21 Request Urinalysis, Office (61990)Indication: History of MRSA infection On: 77-Leg-331612:42 Request Hemoglobin Glyclated (HGB A1C) (88384)Indication: Diabetes mellitus type 2, uncontrolled On: 50-Bad-732938:46 Request MICROALBUMIN: CREATININE RATIO (13932) AND (96611)Indication: Hypertensive heart disease without heart failure On: 48-Vjz-736786:46 Request Planned Encounters Medical; Walk Assessment - On: 25-Jun-2018 14:30 Comprehensive Internal Medicine Visit, Nurse Medical; 3 Month FU - On: 28-Jul-2018 13:30 Comprehensive Internal Medicine Nav MCKINLEYElsa Marly Chopra CNP [place] Planned Procedures Flu Vaccine (Quadrivalent) 37330Wk: On: 20-May-2018 Intent Karly Chandra DEXA SCAN AXIAL SKELETON (93868)By: On: 18-Dec-2017 Intent Nav MCKINLEY OneliaMarly Chopra CNP [place] SCREENING DIGITAL TOMOSYNTHESIS OF On: 18-Dec-2017 Intent BREAST (28490)By: Elsa Chopra CNP, CNP [place] Flu Vaccine (Quadrivalent) 10888Hs: On: 11-Jun-2017 Intent Nav MCKINLEY OneliaElsa العلي CNP Comments: InfluenzaLot #[id number]-L dltd, IMDose prefilled syringeVIS and ABN signedgiven by:GENARO blackwood PHYSICAL THERAPY TREATMENT On: 11-Dec-2016 Intent (93176)By: Adelita Doshi LPN PHYSICAL THERAPY EVALUATION On: 11-Dec-2016 Intent (35591)By: Elsa Chopra CNP, CNP, Mary E Toradol Injection, 30 mg ([id number])By: On: 10-Dec-2016 Intent Elsa Chopra CNP, CNP, Mary E Radiology - Hip - RightBy: Nav On: 10-Dec-2016 Intent ARLEN OneliaMarly Chopra CNP [place] Aerosol Treatment (58192)By: Tico On: 16-Oct-2016 Intent Adelita LAM Flu Vaccine (Quadrivalent) [id number]: On: 11-Jul-2016 Intent Nav MCKINLEY OneliaMarly Chopra CNP [place] Comments: FLUlot: [id number]:01/16site:Lt deltoidroute:IMdose:.5mlBHAVNA SHAW Ultrasound - Abdomen CompleteBy: On: 03-Jul-2016 Intent Elsa Chopra CNP, CNP, Mary E Radiology - KUBBy: Elsa Chopra CNP On: 03-Jul-2016 Intent Elsa Chopra CNP DRAIN/INJECT SMALL JOINT OR BURSA On: 18-May-2016 Intent ()By: Esla Chopra CNP Comments: to left wrist joint 1/2 cc cuca, 1/2 cc george. Kenalog lot #[id number] exp Marcain lot [id number] ex Elsa MCKINLEY MAMMOGRAM, SCREENING, BOTH BREAST On: 11-May-2016 Intent (95326)By: Elsa Chopra CNP, CNP, Mary E Radiology [...] mellitus without complication) : DISCONTINUED - URINALYSIS (39215) Indication: Diabetes mellitus type II, controlled, with no complications (Renamed from Controlled type 2 diabetes mellitus without complication) CKD (chronic kidney disease), stage III : DISCONTINUED - MICROALBUMIN: CREATININE RATIO (41637) AND (89352) Indication: CKD (chronic kidney disease), stage III Diabetes mellitus type II, controlled, with no complications (Renamed from Controlled type 2 diabetes mellitus without complication) : DISCONTINUED - CBC, PLATELETS & AUT DIFF (80426) Indication: Diabetes mellitus type II, controlled, with no complications (Renamed from Controlled type 2 diabetes mellitus without complication) Diabetes mellitus type II, controlled, with no complications (Renamed from Controlled type 2 diabetes mellitus without complication) : DISCONTINUED - METABOLIC PANEL, COMPREHENSIVE (43047) Indication: Diabetes mellitus type II, controlled, with no complications (Renamed from Controlled type 2 diabetes mellitus without complication) Diabetes mellitus type II, controlled, with no complications (Renamed from Controlled type 2 diabetes mellitus without complication) : DISCONTINUED - TSH (58418) Indication: Diabetes mellitus type II, controlled, with [...] dependent : DISCONTINUED - METABOLIC PANEL, BASIC (46120) Indication: Diabetes mellitus type 2, insulin dependent [...] patient does not have durable power of flower shop manager or living will. The patient has noticed getting bored, poor spirits most of time and lack of energy. Other providers contributing to the lyndsey bolton's care are boilerhouse mechanic () and urologist (). Note for Annual [...] and is sleeping poorly. Patient has been Indicative Software End: 18-Dec-2017 14:15 pliant with instructions. Current [...] and is sleeping poorly. Patient has been Indicative Software End: 18-Sep-2017 13:50 pliant with instructions. Current [...] any known injury. The patient is ri [facility] hand dominant. The injury involved the left [...] - Reason for ER visit: note: (surgery [facility]. ). The patient feels well [...] MRSA. She has had pre-op testing at [facility] on 10-14-2015, for Lumbar microdecompression for 10-24-2015 Blood work. 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 Current medication use: no side [...] surgeon- - recently went to er at [facility] on jul 14 - she was having [...]
--- OUTSIDE RECORDS SUMMARY | 2018-09-25 14:44 | XMS RPT_ITS | Continuity of Care Document ---
:1950 Author Organization [facility] Address [facility] [address] [place] [address] Phone Care Team Providers Name Role Phone Nav ARLENElsa Unavailable Malcolm STANLEY, Casey Florian Unavailable [place] DO , Dr. Aaron Diaz Unavailable John JosephAnnalisa lynne Unavailable Dr. Abimael Ag Unavailable Kirby STANLEY, Jared Galeano Unavailable Pascale Boston Unavailable Adelita Doshi LPN Unavailable Unavailable Karly Chandra Unavailable Unavailable Gravius, Yasmeen Unavailable Unavailable Fabby Louis Unavailable Unavailable Trina Soresnon Unavailable Unavailable Unavailable Unavailable Problems Name Dates [...] 585.3) Comments: follows with Dr. Munguia in [place], seen for sarcoidosis currently, stableGFR 42 Status: [...] on wean of steroid Scale 201-250. 5 dqidg556-277 8 waqki990-729 10 qofrj809-188 12 units>401 15 unitsad ding metformin not [...] given in L arm subcutaneously paitent tolerated wellLOT#[id number]#2020 NOV 06 Status: Active Postmenopausal (Renamed from Postmenopausal status) (Z78.0, V49.81) Status: Active Pregnancies () Comments: 1. 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) Comments: Sees Ciara at [facility] for sarcoid in bone marrow [...] Refills: 6 Ordered:12-May-2018 Nav MCKINLEY, Elsa Reyes [employer]ING [employer] INST[employer]ER, Elsa Luke Start : 12-May-2018 Active Citalopram Hydrobromide 40 MG Oral Tablet 1/2 tab tablet tablet daily for 30 days Quantity: 30 {Tablet} Refills: 3 Ordered:02-May-2018 Nav MCKINLEY, Elsa Reyes CNP, Elsa Luke Start : 02-May-2018 Active Cyclobenzaprine HCl 10 MG Oral Tablet 1 (one) Tablet as needed for 0 days Quantity: 30 {Tablet} Refills: 0 Ordered:11-Jun-2017 Nav MCKINLEY, Elsa Reyes [employer] INSTALLER, lEsa Luke Start : 11-Jun-2017 Active Comments:Medication taken [...] Mickey Start : 18-Jul-2015 Active VITAMIN D3, 84677MYQH (Oral Capsule) 1 (one) Capsule Capsule once [...] Refills: 0 Ordered:12-Mar-2016 Nav ARLEN Elsa Reyes [employer] INSTALLER, Elsa Luke Start : 12-Mar-2016 End : [...] q12hrs (100 MG) End : 05-Aug-2015 Discontinued Comments:[facility] MUPIROCIN, 2% (External Ointment) 1 (one) Ointment [...] : 05-Aug-2015 Discontinued Comments:1,250mg IV q24hrs x 63hdce2,500mg IV q24hrs #14 Allergies and Adverse Reactions [...] Comments: was seeing Dr. Munguia's partner in [place] Dr. Morel, gfr 43%, has proteinuria Status: [...] Visit Report Result: Comments: See Note; NOTES: [facility] [place] [address] OFFICE VISIT Date of Service: 02/17/18 MR#: [id number] Acct: [id number] Name: SHREYAS KATHLEEN Rep #: [id number] : 1950 Provider: Casey Fowler MD Age/Sex: 67/F Location: 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 Atherosclerosis of platinum coronary artery of platinum heart without angina pectoris I25.10 Mild Plan [...] be scheduled for an outpatient visit in [facility] 9 months unless needed sooner. Thank you for allowing me to participate in the care of your patient. Please don't hesitate to call if any issues arise. This note was generated using a MindJolt system and there may be incorrect words, spelling or punctuation that were not noted when reviewing the office note prior to saving. Follow Up 9 Months Coding Level of Care Code Off vis,est,leathae l 4 Diagnoses Atherosclerosis of platinum coronary artery of platinum heart without angina pectoris I25.10 Solomon vs. transplanted heart: platinum heart Paroxysmal atrial fibrillation I48.0 Hyperlipidemia, u nspecified hyperlipidemia type E78.5 Hyperlipidemia type: unspecified Essential hypertension I10 Hypertension type: essential hypertension Long-term use of high-risk medication Z79.899 Coding Level of Care Code Off vis,est,level 4 Diagnoses Atherosclerosis of platinum coronary artery of platinum heart without angina pectoris I25.10 Solomon vs. transplanted heart: platinum heart Paroxysmal atrial fibrillat ion I48.0 Hyperlipidemia, unspecified hyperlipidemia type E78.5 Hyperlipidemia type: unspecified Essential hypertension I10 Hypertension type: essential hypertension Long-term use of high-risk medicatio n Z79.899 02/17/18 1530 <Electronically signed by Casey Fowler MD> Date Casey Fowler MD Cosigner Signature: Date _ (if applicable) CC: Elsa Chopra NP 14-Feb-2018 SCREENING MAMM (CAD), BILAT Result: Comments: See Note; NOTES: [facility] Imaging Services [address] [place] [address] SCREENING MAMM (CAD), BILAT MR#: [id number] Acct: [id number] Name: SHREYAS KATHLEEN Rep #: [id number] : 1950 F 67 From: Elias Finn MD PCP: Elsa Chopra NP Status: REG CLI Study: SCREENING MAMM (CAD), BILAT Date of Exam: 02/14/18 Exam# [id number] Ordering Dr: Elsa Chopra MAMMO GRAPHY - [...] these results [facility] the facility within 30 days. Approximately 10% of breast cancers are not detected by mammography. A normal mammogram should not delay biopsy of a clinically suspicious abnormality. [id number] Elect ronically Signed: Elias Finn MD at 8:30 EDT Tel [phone], Service support , CC: Elsa Chopra NP [employer]: Signed 21-Jan-2018 Dexa Bone Density Study Result: Comments: See Note; NOTES: [facility] Imaging Services [address] [place] [address] Dexa Bone Density Study MR#: [id number] Acct: [id number] Name: SHREYAS KATHLEEN Rep #: [id number] : 1950 F 67 From: Elias Finn MD PCP: Elsa Chopra NP Status: REG CLI Study: Dexa Bone Density Study Date of Exam: 01/21/18 Exam# [id number] Ordering Dr: Elsa Chopra STUDY: DUAL E [...] Elias Finn MD at 15:36 EDT Tel [phone], Service support , CC: Elsa Chopra NP [employer]: Signed 10-Dec-2016 Hip 2-3 Views with Pelvis Result: Comments: See Note; NOTES: [facility] Imaging Services [address] [address] Verdana 4d Hip 2-3 Views with Pelvis MR#: [id number] Acct: [id number] Name: SHREYAS KATHLEEN Rep #: [id number] : 1950 F 66 From: Herve Jimenez MD PCP: Elsa Chopra Status: REG CLI Study: Hip 2-3 Views with Pelvis Date of Exam: 12/10/16 Exam# [id number] Ordering Dr: Elsa Chopra STUDY : X-RAY [...] FACR at 11:31 EDT , Service support [phone], CC: Elsa Chopra [employer]: Signed 05-Jul-2016 Abdomen Complete Result: Comments: See Note; NOTES: [facility] Imaging Services [address] [place] [address] Verdana 4d Abdomen Complete MR#: [id number] Acct: [id number] Name: SHREYAS KATHLEEN Keira Rep #: [id number] : 1950 F 66 From: Elias Finn MD PCP: Elsa Chopra Status: REG CLI Study: Abdomen Complete Date of Exam: 07/05/16 Exam# [id number] Ordering Dr: Elsa Chopra STUDY: ABDOMINAL ULTRASOUND [...] Elias Finn MD at 9:35 EDT Tel [phone], Service support [phone], CC: Elsa Chopra [employer]: Signed 05-Jul-2016 Abdomen Single View Result: Comments: See Note; NOTES: [facility] Imaging Services [address] [place] [address] Nidiasusi 4d Abdomen Single View MR#: [id number] Acct: [id number] Name: SHREYAS KATHLEEN Rep #: [id number] : 1950 F 66 From: Elias Finn MD PCP: Elsa Chopra Status: REG CLI Study: Abdomen Single View Date of Exam: 07/05/16 Exam# [id number] Ordering Dr: Elsa Chopra STUDY: X-RA Y [...] of the L1 vertebrae. ORDER # : [id number] RAD/Abdomen Single View IMPRESSION: Moderate amount of fecal material is seen in the colon. Electronically Signed: Elias Finn MD at 10:34 EDT Tel [phone], Service sup port [phone], CC: Elsa Chopra [employer]: Signed 18-May-2016 Bilat Scrn Digital AND CAD Result: Comments: See Note; NOTES: [facility] Imaging Services [address] [place] [address] Verdana 4d Bilat Scrn Digital AND CAD MR#: [id number] Acct: [id number] Name: JACINTO KATHLEEN Rep #: [id number] : 1950 F 65 From: Elias Finn MD PCP: Elsa Chopra Status: REG CLI Study: Bilat Scrn Digital AND CAD Date of Exam: 05/18/16 Exam# [id number] Ordering Dr: Elsa Chopra MAMMOGRAPHY - BILATERAL [...] biopsy of a clinically suspicious abnor mality. [id number] Electronically Signed: Elias Finn MD at 12:53 EDT Tel [phone], Service support [phone], CC: Elsa Chopra [employer]: Signed 14-Feb-2016 Shoulder min 2 Views Result: Comments: See Note; NOTES: [facility] Imaging Services [address] [place] [address] Verdavinayak 4d Shoulder min 2 Views MR#: [id number] Acct: [id number] Name: SHREYAS KATHLEEN Rep #: [id number] : 1950 F 65 From: Herve Jimenez MD PCP: Madeline Florez DO Status: REG CLI Study: Shoulder min 2 Views Date of Exam: 02/14/16 Exam# [id number] Ordering Dr: Pascale Boston DO STUDY: X-RAY [...] FACR at 14:50 EDT , Service support [phone], Fax RAD/Shoulder min 2 Views IMPRESSION: Bilateral of the acromioclavicular joint, otherwise normal x-ray examination of the shoulder. Electronically Signed: Herve Jimenez MD, FACR at 14:50 EDT , Service support [phone], CC: Pascale Boston DO; Madeline Florez DO [employer]: Signed 21-Oct-2015 Spirometry (43358) Comments: mod restriction Result: 19-Sep-2015 Chest PA and Lateral Result: Comments: See Note; NOTES: [facility] Imaging Services [address] [place] [address] [place] [address] Verdana 4d Chest PA and Lateral MR#: [id number] Acct: [id number] Name: SHREYAS KATHLEEN Rep #: [id number] : 1950 F 65 From: Elias Finn MD PCP: Madeline Florez DO Status: REG CLI Study: Chest PA and Lateral Date of Exam: 09/19/15 Exam# [id number] Ordering Dr: Madeline Florez DO STUDY: X-RAY [...] Elias Finn MD at 13:58 EST Tel [phone], Service support [phone], RAD/Chest PA and Lateral IMPRESSION: Stable examination. No acute abnormality is seen. Electronically Doris d: Elias Finn MD at 13:58 EST Tel [phone], Service support [phone], CC: Madeline Florez DO [employer]: Signed 25-Aug-2015 Spine Lumbar (Routine) Result: Comments: See Note; NOTES: [facility] Imaging Services [address] [place] [address] Verdana 4d Spine Lumbar (Routine) MR#: [id number] Acct: [id number] Name: SHREYAS MAJOR Rep #: [id number] : 1950 F 65 From: Herve Jimenez MD PCP: Madeline Florez DO Status: REG CLI Study: Spine Lumbar (Routine) Date of Exam: 08/25/15 Exam# [id number] Ordering Dr: ELIZABETH DE LEON M.D. STUDY: [...] FACR at 17:43 EST , Service support [phone], CC: ELIZABETH DE LEON M.D.; Madeline Florez DO [employer]: Signed 25-Aug-2015 Spine Thoracic (Routine) Result: Comments: See Note; NOTES: [facility] Imaging Services [address] [place] [address] 4d Spine Thoracic (Routine) MR#: [id number] Acct: [id number] Name: SHREYAS SHARIF Rep #: [id number] : 1950 F 65 From: Herve Jimenez MD PCP: Madeline Florez DO Status: REG CLI Study: Spine Thoracic (Routine) Date of Exam: 08/25/15 Exam# [id number] Ordering Dr: ELIZABETH RUIZ M.D. STUDY: MRI [...] FACR at 17:45 EST , Service support [phone], CC: ELIZABETH DE LEON M.D.; Komal Florez DO [employer]: Signed 17-Aug-2015 Chest PA and Lateral Result: Comments: See Note; NOTES: [facility] Imaging Services [address] [place] [address] Verdana 4d Chest PA and Lateral MR#: [id number] Acct: [id number] Name: SHREYAS KATHLEEN Rep #: [id number] : 1950 F 65 From: Elias Finn MD PCP: Madeline Florez DO Status: REG CLI Study: Chest PA and Lateral Date of Exam: 08/17/15 Exam# [id number] Ordering Dr: Madeline Florez DO STUDY: X-RAY [...] Elias Finn MD at 11:09 EST Tel [phone], Service support [phone], Fax RAD/Chest PA and Lateral IMPRESSION: Residual changes persist in the right middle lobe and there has been some improvement. Further followup is recommended. Electr onically Signed: Elias Finn MD at 11:09 EST Tel [phone], Service support [phone], CC: Madeline Florez DO [employer]: Signed 12-Aug-2015 Discharge Instruction Result: Comments: See Note; NOTES: [facility] Medical Records Department [address] [place] [address] Discharge Instruction 08/10/15 1702 MR#: [id number] Acct: [id number] Name: SHREYAS KATHLEEN Rep #: [id number] : 1950 65 From: Denny Bone MD PCP: Madeline Florez DO Status: DEP ER ED Disposition - Plan for ED Patient: Chief Complaint: Abn Labs Instructi ons: ED Bacteremia, Rule Out (Adult) Referrals: Kaetlyn Arenas MD [STAFF PHYSICIAN] - 2 Days What to do if you have Problems For any increased pain, shortness of breath, bleeding, nausea or vomit ing, chest pain, or any unexpected problems, contact your doctor. Call [facility] ([phone]) or report to the closest Emergency Room. Call 911 if necessary. 08/12/15 1502 <Elect ronically signed by Denny Bone MD> Date Denny Bone MD Cosigner Signature (If Indicated): Date CC: Madeline Gautam MOY 12-Aug-2015 Emergency Department Summary Result: Comments: See Note; NOTES: [facility] Medical Records Department [address] [place] [address] Emergency Department Summary MR#: [id number] Acct: [id number] Name: SHREYAS KATHLEEN Rep #: [id number] : 1950 65 From: Denny Bone MD [...] the patient had blood cultures obtained at [facility] and they were called to Dr. [...] Nacho Ramirez C: Madeline Bonilla MD T: [facility] JOB: [id number] 08/12/15 1502 <Electronically signed by Denny Bone MD> Date Denny Bone MD Cosigner Signature (If Indicated): Date ___ CC: Madeline Florez DO; Katelyn Arenas MD Date Dictated: 08/10/151708 Date Transcribed: 08/10/151708 [employer]: Signed Social History Name Dates Details No Caffeine Use Status: Active No Drug Use Status: Active Non Drinker/No Alcohol Use Status: Active Tobacco use: Never smoker. Status: Active Smoking Status Name Dates Details Never smoker Vital Signs Date Test Result Details 99-Dfy-615945:51 Comments: was tested for cateracts in sep [...] kg/m2 Body Surface Area Calculated 1.85 m2 08-Xte-281150:20 Temperature 97.8 f Comments: Method: Temporal Pulse [...] unknown, given order todayLast vision screen 2014 [employer] Temperature 98.3 f Pulse 75 /min Comments: [...] Size: Large Results Date Description Value Details 80-Afw-23782: MICROALBUMIN: CREATININE RATIO Comments: Jun 19; PATIENT WAS FASTINGPERFORMED BY: [facility]The [facility] FallsAcdbyx8693 [facility] [id number] (80618) AND (56836) Alb/Creat Ratio 266.9 {mg/g_creat} (Abnormal) Range: 0.0-30.0 Albumin, Urine 168.7 ug/mL (Normal) Creatinine, Urine 63.2 mg/dL (Normal) :00 Metabolic Panel, Comprehensive Comments: Jun 19; PATIENT WAS FASTINGPERFORMED BY: LabCoThe [facility] Tinton FallsSxgsah6307 [facility] [id number] (95079) ALT (SGPT) 14 [iU]/L (Normal) Range: 0-32 [...] mg/dL (Abnormal) Range: 65-99 :00 HGB A1C (12731) Comments: June 19; PATIENT WAS FASTINGPERFORMED BY: [facility]6370 [facility] [id number] Hemoglobin A1c 7.0 % (Abnormal) Range: 4.8-5.6 Comments: . Prediabetes: 5.7 - 6.4 Diabetes: >6.4 Glycemic control for adults with diabetes: <7.0 00-Kcl-743461:33 ALKALINE PHOSPHATASE-ISOENZYM Comments: PATIENT NOT FASTINGPERFORMED BY: [facility]6370 [facility] [id number] (94971) Intestinal Frac.: 0 % (Normal) Range: 0-18 Bone Fraction: 27 % (Normal) Range: 14-68 Liver Fraction: 73 % (Normal) Range: 18-85 Alkaline Phosphatase 89 [iU]/L (Normal) Range: 39-117 31-Neh-870036:33 CBC, Platelets & Auto Diff Comments: PATIENT NOT FASTINGPERFORMED BY: [facility]6370 [facility] [id number] (66405) Immature Grans (Abs) 0.0 {x10E3/uL} (Normal) Range: [...] 3.77-5.28 WBC 5.9 {x10E3/uL} (Normal) Range: 3.4-10.8 21-Vqg-932831:22 HgA1C , Office (37811) Comments: 7.3 HgA1C , Office 7.3 % (Abnormal) Range: 4.6 - 7.1 :22 Blood Glucose , Office (62788) Blood Glucose , Office 173 (Normal) :40 Basic Metabolic Profile (BMP) Comments: SEND RESULTS OF BMP TO .[facility] Hlcikowsxg0449 [facility] [place], [address] GAP 11 (Normal) Range: 5-15 CO2 27.0 [...] A.D.A. criteria.Please note revised GLUCOSE reference range ajgmtxjri12/02/2018. :40 Liver Profile Comments: SEND RESULTS OF BMP TO .[facility] [address] [place], [address] D BILI 0.09 mg/dL (Normal) Range: 0.00-0.30 T BILI 0.40 mg/dL (Normal) Range: 0.20-1.00 ALT 22 U/L (Normal) Range: 13-56 ALK P 103 U/L (Normal) Range: 45-117 AST 17 U/L (Normal) Range: 15-37 GLOB 4.0 g/dL (Normal) Range: 2.2-4.2 ALB 3.8 g/dL (Normal) Range: 3.2-5.0 T PROT 7.8 g/dL (Normal) Range: 6.4-8.2 :41 CALCIFEDIOL (75829) Comments: PATIENT WAS FASTINGPERFORMED BY: [employer]TO [employer]INCO70 [facility] [id number] Vitamin D, 25-Hydroxy 44.2 ng/mL (Normal) Range: 30.0-100.0 Comments: Vitamin D deficiency has been defined by the [place] ofMedicine and an Endocrine Society practice guideline as alevel of serum 25-OH vitamin D less than 20 ng/mL (1,2).The Endocrine Society went on to further define vitamin Dinsufficiency as a level between 21 and 29 ng/mL (2).1. IOM ([place] of Medicine). 2010. Dietary reference intakes for calcium and D. [place]: The National Academies Press.2. Jacinto MF, Eddy NC, Quintin JAVED, et al. Evaluation, treatment, and prevention of vitamin D deficiency: an Endocrine Society clinical practice guideline. JCEM. 2010; 96(7):1911-30. :41 METABOLIC PANEL, Comments: PATIENT WAS FASTINGPERFORMED BY: TerraWiThe [facility] Hospital of Tinton FallsHzstlm8571 [facility] [id number] Information: 318811,G37142; OV 03/19 COMPREHENSIVE (34988) ALT (SGPT) 15 [iU]/L (Normal) Range: 0-32 [...] 8-27 Glucose 143 mg/dL (Abnormal) Range: 65-99 35-Dcu-409613:31 Blood Glucose , Office (27127) Blood Glucose , Office 211 (Normal) 50-Hpu-710306:31 HgA1C , Office (66421) HgA1C , Office 6.8 % (Normal) Range: 4.6 - 7.1 44-Wzy-708586:33 CBC, Platelets & Auto Diff Comments: PATIENT WAS FASTINGPERFORMED BY: [facility] Ffhavr0276 [facility] [id number] (45896) Immature Grans (Abs) 0.0 {x10E3/uL} (Normal) Range: [...] 3.77-5.28 WBC 7.7 {x10E3/uL} (Normal) Range: 3.4-10.8 69-Xle-867915:33 Lipid Panel (32707) Comments: PATIENT WAS FASTINGPERFORMED BY: [employer]70 [facility]Select [facility] [id number] LDL/HDL Ratio 0.9 {ratio} (Normal) Range: 0.0-3.2 Comments: LDL/HDL Ratio Men Women 1/2 Avg.Risk 1.0 1.5 Av g.Risk 3.6 3.2 2X Avg.Risk 6.2 5.0 3X Avg.Risk 8.0 6.1 LDL Cholesterol Calc 35 mg/dL (Normal) Range: 0-99 VLDL Cholesterol Kiesha 53 mg/dL (Abnormal) Range: 5-40 HDL Cholesterol 41 mg/dL (Normal) Triglycerides 264 mg/dL (Abnormal) Range: 0-149 Cholesterol, Total 129 mg/dL (Normal) Range: 100-199 07-Jvr-388738:33 Metabolic Panel, Comprehensive Comments: PATIENT WAS FASTINGPERFORMED BY: [employer]6370 [facility] [id number] (85336) ALT (SGPT) 18 [iU]/L (Normal) Range: 0-32 [...] 8-27 Glucose 150 mg/dL (Abnormal) Range: 65-99 95-Xcq-416548:33 MICROALBUMIN: CREATININE RATIO Comments: PATIENT WAS FASTINGPERFORMED BY: TerraWiThe Rehabilitation Hospital of Tinton FallsKpqduu7042 [facility] [id number] (61164) AND (48607) Alb/Creat Ratio 225.5 {mg/g_creat} (Abnormal) Range: 0.0-30.0 Albumin, Urine 112.5 ug/mL (Normal) Creatinine, Urine 49.9 mg/dL (Normal) 58-Zxn-539972:33 URINALYSIS (05830) Comments: PATIENT WAS FASTINGPERFORMED BY: LabCoThe [facility] Hospital [facility] T[facility] FallsZucbca0712 [facility] [id number] Microscopic Examination See below: (Normal) Comments: Microscopic was indicated and was performed. Nitrite, Urine Negative (Normal) Urobilinogen,Semi-Qn 0.2 mg/dL (Normal) Range: 0.2-1.0 Bilirubin Negative (Normal) Occult Blood Negative (Normal) Ketones Negative (Normal) Glucose Negative (Normal) Protein Trace (Normal) WBC Esterase 2+ (Abnormal) Appearance Clear (Normal) Urine-Color Yellow (Normal) pH 6.5 (Normal) Range: 5.0-7.5 Specific Gifford 1.014 (Normal) Range: 1.005-1.030 56-Dbp-977769:33 TSH (93491) Comments: PATIENT WAS FASTINGPERFORMED BY: [facility] [id number] TSH 3.870 {uIU/mL} (Normal) Range: 0.450-4.500 90-Twe-146627:33 Microscopic Examination Comments: PATIENT WAS FASTINGPERFORMED BY: [facility]ApolisSelect [facility] [id number] Bacteria Few (Normal) Mucus Threads Present (Normal) Cast Type Hyaline casts (Normal) Casts Present {/lpf} (Abnormal) Epithelial Cells (non renal) >10 {/hpf} (Abnormal) Range: 0 - 10 RBC 0-2 {/hpf} (Normal) Range: 0 - 2 WBC 11-30 {/hpf} (Abnormal) Range: 0 - 5 52-Ajd-206782:57 HgA1C , Office (96560) Comments: 6.6 HgA1C , Office 6.6 % (Normal) Range: 4.6 - 7.1 56-Cgd-998821:57 Blood Glucose , Office (53745) Blood Glucose , Office 211 (Normal) 15-Ino-305391:53 HEPATIC FUNCTION PANEL Comments: PATIENT NOT FASTINGPERFORMED BY: [facility]ApolisSelect [facility] [id number] (99995) ALT (SGPT) 13 [iU]/L (Normal) Range: 0-32 AST (SGOT) 17 [iU]/L (Normal) Range: 0-40 Alkaline Phosphatase, S 89 [iU]/L (Normal) Range: 39-117 Bilirubin, Direct 0.08 mg/dL (Normal) Range: 0.00-0.40 Bilirubin, Total <0.2 mg/dL (Normal) Range: 0.0-1.2 Albumin, Serum 4.2 g/dL (Normal) Range: 3.6-4.8 Protein, Total, Serum 6.8 g/dL (Normal) Range: 6.0-8.5 :53 CXPQL-PBJTHTVNEAI-CBUYG (54201) Comments: PATIENT NOT FASTINGPERFORMED BY: CB [facility] Leaojm5663 [address] RoadDublin [place] [id number] AFP, Serum, Tumor Marker 2.6 ng/mL (Normal) Range: 0.0-8.3 Comments: Rosmery ECLIA methodology :53 ALKALINE PHOSPHATASE-ISOENZYM Comments: PATIENT NOT FASTINGPERFORMED BY: CB [facility] Nsubdo9211 [address] RoadDublin [place] [id number] (55537) Intestinal Frac.: 5 % (Normal) Range: 0-18 Bone Fraction: 24 % (Normal) Range: 14-68 Liver Fraction: 71 % (Normal) Range: 18-85 02-Wnh-274454:11 ALKALINE PHOSPHATASE-ISOENZYM Comments: PATIENT NOT FASTINGPERFORMED BY: CB [facility] Yqzwmo7403 [address] RoadDublin [place] [id number] (88293) Intestinal Frac.: 3 % (Normal) Range: 0-18 Bone Fraction: 19 % (Normal) Range: 14-68 Liver Fraction: 78 % (Normal) Range: 18-85 Alkaline Phosphatase, S 122 [iU]/L (Abnormal) Range: 39-117 70-Zoo-674711:11 CALCIFEDIOL (30365) Comments: PATIENT NOT FASTINGPERFORMED BY: CB [facility] Qklpzi3744 [address] RoadDublin [place] [id number] Vitamin D, 25-Hydroxy 37.5 ng/mL (Normal) Range: 30.0-100.0 Comments: Vitamin D deficiency has been defined by the [place] ofMedicine and an Endocrine Society practice guideline as alevel of serum 25-OH vitamin D less than 20 ng/mL (1,2).The Endocrine Society went on to further define vitamin Dinsufficiency as a level between 21 and 29 ng/mL (2).1. IOM ([place] of Medicine). 2010. Dietary reference intakes for calcium and D. [place]: The National Academies Press.2. Jacinto MF, Eddy NOGUEIRA, Quintin JAVED, et al. Evaluation, treatment, and prevention of vitamin D deficiency: an Endocrine Society clinical practice guideline. JCEM. 2010; 96(7):1911-30. :11 TSH (90157) Comments: PATIENT NOT FASTINGPERFORMED BY: [facility] Hxizbs7646 [address]ana RoadDublin [place] [id number] TSH 1.620 {uIU/mL} (Normal) Range: 0.450-4.500 :11 T4, FREE (THYROXINE) (49274) Comments: PATIENT NOT FASTINGPERFORMED BY: [facility] Fvhjek6[address] RoadDublin [place] [id number] T4,Free(Direct) 1.00 ng/dL (Normal) Range: 0.82-1.77 :11 T3, FREE (TRIDOTHYRONINE) (01607) Comments: PATIENT NOT FASTINGPERFORMED BY: [facility] Pqaabs[address] [facility] [place] [id number] Triiodothyronine,Free,Serum 2.5 pg/mL (Normal) Range: 2.0-4.4 :08 HgA1C , Office (44312) HgA1C , Office 7.4 % (Abnormal) Range: 4.6 - 7.1 :08 Blood Glucose , Office (44454) Blood Glucose , Office 190 (Normal) 1-Zua-172194:30 Lipid Profile Comments: Order Date: 12/12/16Order Info: [id number] - *Hepatic Function PanelOrder Info: [id number] - *Lipid Profile CC PCPComments: 12 hours fasting, may have water.Comments: 6 months / [facility] [address] [place], [address] VLDL 46 mg/dL (Abnormal) Range: 5-40 LDL [...] 200-240 mg/dL Borderline >240 mg/dL High Risk 9-Jxo-213231:30 Liver Profile Comments: Order Date: 12/12/16Order Info: [id number] - *Hepatic Function PanelOrder Info: [id number] - *Lipid Profile CC PCPComments: 12 hours fasting, may have water.Comments: 6 months / [facility] next [facility]WF[facility] Nmurbltcww1121 [facility] [place], [address] D BILI 0.11 mg/dL (Normal) Range: 0.00-0.30 [...] of Apr 09; PATIENT NOT FASTINGPERFORMED BY: LabCoThe [facility] Hospital of Tinton FallsCttujd0570 [facility] [id number] HORMONE) (52412) TSH 0.728 {uIU/mL} (Normal) Range: 0.450-4.500 :55 HgA1C , Office (38728) HgA1C , Office 6.9 % (Normal) Range: 4.6 - 7.1 :55 Blood Glucose , Office (56193) Blood Glucose , Office 143 (Normal) 29-Hdd-459599:11 Microscopic Examination Comments: PATIENT WAS FASTINGPERFORMED BY: Ter[employer]Wi [employer] [facility] [id number] Bacteria Few (Normal) Mucus Threads Present (Normal) Cast Type Hyaline casts (Normal) Casts Present {/lpf} (Abnormal) Epithelial Cells (non renal) 0-10 {/hpf} (Normal) Range: 0 - 10 RBC 0-2 {/hpf} (Normal) Range: 0 - 2 WBC 6-10 {/hpf} (Abnormal) Range: 0 - 5 71-Bui-762607:11 URINALYSIS, W/ MICRO (24335) Comments: January 2017; PATIENT WAS FASTINGPERFORMED BY: Navegg [facility] [id number] Microscopic Examination See below: (Normal) Comments: Microscopic was indicated and was performed. Nitrite, Urine Negative (Normal) Urobilinogen,Semi-Qn 0.2 mg/dL (Normal) Range: 0.2-1.0 Bilirubin Negative (Normal) Occult Blood Negative (Normal) Ketones Negative (Normal) Glucose Trace (Abnormal) Protein 1+ (Abnormal) WBC Esterase 1+ (Abnormal) Appearance Clear (Normal) Urine-Color Yellow (Normal) pH 6.5 (Normal) Range: 5.0-7.5 Specific Gifford 1.016 (Normal) Range: 1.005-1.030 58-Ypx-973411:11 MICROALBUMIN: CREATININE RATIO Comments: January 2017; PATIENT WAS FASTINGPERFORMED BY: [employer] [facility] [id number] (47694) AND (88352) Microalb/Creat Ratio 208.2 {mg/g_creat} (Abnormal) Range: 0.0-30.0 Microalbumin, Urine 182.2 ug/mL (Normal) Creatinine, Urine 87.5 mg/dL (Normal) 80-Idf-609390:11 CBC, Platelets & Auto Diff Comments: January 2017; PATIENT WAS FASTINGPERFORMED BY: [employer] [facility] [id number] (23668) Immature Grans (Abs) 0.0 {x10E3/uL} (Normal) Range: [...] 3.77-5.28 WBC 5.6 {x10E3/uL} (Normal) Range: 3.4-10.8 58-Plx-895089:11 Metabolic Panel, Comprehensive Comments: January 2017; PATIENT WAS FASTINGPERFORMED BY: LabCoThe [facility] Hospital of Tinton FallsZhxmnr7049 [facility] [id number] (73192) ALT (SGPT) 13 [iU]/L (Normal) Range: 0-32 [...] Glucose, Serum 120 mg/dL (Abnormal) Range: 65-99 53-Upb-867479:11 TSH (THYROID STIMULATING Comments: January 2017; PATIENT WAS FASTINGPERFORMED BY: [facility] Mnayuj1205 [facility] [id number] HORMONE) (55798) TSH 0.982 {uIU/mL} (Normal) Range: 0.450-4.500 6-Rlc-384627:02 Lipid Profile Comments: Order Date: 12/04/16Order Info: [id number] - *Hepatic Function PanelOrder Date: 12/04/16Order Info: [id number] - *Lipid Profile CC PCPComments: 12 hours fasting, may have water.[facility] [address] [place], [address] VLDL 36 mg/dL (Normal) Range: [...] 200-240 mg/dL Borderline >240 mg/dL High Risk 3-Gpp-894865:02 Liver Profile Comments: Order Date: 12/04/16Order Info: [id number] - *Hepatic Function PanelOrder Date: 12/04/16Order Info: [id number] - *Lipid Profile CC PCPComments: 12 hours fasting, may have water.[address] [place], [place], [address] D BILI 0.07 mg/dL (Normal) Range: 0.00-0.30 T BILI 0.30 mg/dL (Normal) Range: 0.20-1.00 ALT 21 U/L (Normal) Range: 12-78 ALK P 112 U/L (Normal) Range: 45-117 AST 19 U/L (Normal) Range: 15-37 GLOB 3.8 g/dL (Abnormal) Range: 2.3-3.5 ALB 3.4 g/dL (Normal) Range: 3.4-5.0 T PROT 7.2 g/dL (Normal) Range: 6.4-8.2 97-Qij-942301:29 URINE RANDELL CULTURE-ZEINAB COL Comments: PATIENT NOT FASTINGPERFORMED BY: LabCoThe Rehabilitation Hospital of Tinton FallsMlekjf3752 [facility] [id number] Information: SRC:UC COUNT (36833) Result 1 MUG (Normal) Comments: Mixed urogenital flora25,000-50,000 colony forming units per mL Urine Final report (Normal) Culture,Comprehensive 08-Jcm-817645:53 Urinalysis, Office (12894) UA - LEUKOCYTE ESTERASE Small (Normal) UA - NITRITE Negative (Normal) URINE UROBILINGN ZEINAB TIMED Normal mg/dL (Normal) UA - PROTEIN Negative mg/dL (Normal) UA - PH 7 (Normal) UA - BLOOD Negative (Normal) UA - SPECIFIC GRAVITY 1.020 (Normal) UA - KETONES Negative mg/dL (Normal) UA - BILIRUBIN Small (Normal) UA - GLUCOSE Negative (Normal) 66-Vee-113264:51 Blood Glucose , Office (55508) Comments: 169 Blood Glucose , Office 169 (Normal) 25-Xge-597692:52 HgA1C , Office (40718) Comments: 7.0 HgA1C , Office 7.0 % (Normal) Range: 4.6 - 7.1 :22 URINE RANDELL CULTURE-IDENTIFICATN Comments: PATIENT NOT FASTINGPERFORMED BY: [employer] [facility] [id number] Information: SRC:UC (68348) Result 1 MUG (Normal) Comments: Mixed urogenital flora10,000-25,000 colony forming units per mL Urine Final report (Normal) Culture,Comprehensive 45-Pny-140716:05 Urinalysis, Office (64546) UA - LEUKOCYTE ESTERASE Negative (Normal) UA - NITRITE Negative (Normal) URINE UROBILINGN ZEINAB TIMED Normal mg/dL (Normal) UA - PROTEIN 30 mg/dL (Normal) UA - PH 6 (Abnormal) UA - BLOOD non-hemolyzed trace (Normal) UA - SPECIFIC GRAVITY 1.020 (Normal) UA - KETONES Negative mg/dL (Normal) UA - BILIRUBIN Negative (Normal) UA - GLUCOSE 100 (Abnormal) 4-Cqu-358427:42 HgA1C , Office (33946) HgA1C , Office 6.2 % (Normal) Range: 4.6 - 7.1 :42 Blood Glucose , Office (43410) Blood Glucose , Office 137 (Normal) 8-Tme-183191:01 TSH (THYROID STIMULATING Comments: PATIENT NOT FASTINGPERFORMED BY: TerraWi Huigbh4578 [facility] [id number] HORMONE) (83574) TSH 1.820 {uIU/mL} (Normal) Range: 0.450-4.500 1-Bfr-518957:03 HEPATIC FUNCTION PANEL Comments: PATIENT NOT FASTINGPERFORMED BY: [employer] [facility] [id number] (21104) ALT (SGPT) 15 [iU]/L (Normal) Range: 0-32 AST (SGOT) 23 [iU]/L (Normal) Range: 0-40 Alkaline Phosphatase, S 95 [iU]/L (Normal) Range: 39-117 Bilirubin, Direct 0.12 mg/dL (Normal) Range: 0.00-0.40 Bilirubin, Total 0.3 mg/dL (Normal) Range: 0.0-1.2 Albumin, Serum 4.3 g/dL (Normal) Range: 3.6-4.8 Protein, Total, Serum 7.3 g/dL (Normal) Range: 6.0-8.5 :03 [id number] (78106) Comments: PATIENT NOT FASTINGPERFORMED BY: TerraWiThe Rehabilitation Hospital of Tinton FallsBnhwvp3774 [facility] [id number] AFP, Serum, Tumor Marker 2.8 ng/mL (Normal) Range: 0.0-8.3 Comments: Rosmery ECLIA methodology :03 HEPATITIS PANEL (13786) Comments: PATIENT NOT FASTINGPERFORMED BY: TerraWiThe Rehabilitation Hospital of Tinton FallsUwfhru8983 [facility] [id number] Hep C Virus Ab <0.1 {s/co_ratio} (Normal) Range: 0.0-0.9 Comments: Negative: < 0.8 Indeterminate: 0.8 - 0.9 Positive: > 0.9 . The CDC recommends that a positive HCV antibody result be followed up with a HCV Nucleic Acid Amplification test (055425). Hep B Core Ab, IgM Negative (Normal) HBsAg Screen Negative (Normal) Hep A Ab, IgM Negative (Normal) :58 CBC W/Diff, Automated Comments: CBCD FOR DR GAOdr. dan c. [facility]g [facility] hospitalisma [facility] [address]tth[address] [place], [place], [address] Absolute Lymph 1.84 {X10_3/ul} (Normal) Range: 0.83-4.51 [...] Comments: Order Date: 05/14/16Interface Comments: Reason:Order Date: 05/14/16[facility] [address] [place], [address] T4 THYROXIN 11.6 ug/dL (Normal) Range: 4.8-13.9 :58 Thyroid Stim Hormone (TSH) Comments: Order Date: 05/14/16Interface Comments: Reason:Order Date: 05/14/16[facility] [address] [place], [address] TSH 1.96 {uIU/mL} (Normal) Range: 0.358-3.74 1-Bup-698142:11 Urinalysis, Office (56327) UA - LEUKOCYTE ESTERASE Small (Normal) UA - NITRITE Negative (Normal) URINE UROBILINGN ZEINAB TIMED Normal mg/dL (Normal) UA - PROTEIN 30 mg/dL (Normal) UA - PH 6 (Abnormal) UA - BLOOD Negative (Normal) UA - SPECIFIC GRAVITY 1.010 (Normal) UA - KETONES Negative mg/dL (Normal) UA - BILIRUBIN Negative (Normal) UA - GLUCOSE Negative (Normal) 09-Tnz-663588:50 Basic Metabolic Profile (BMP) Comments: [facility] [address] [place], [address] GAP 7 (Normal) Range: 5-15 CO2 33.0 [...] 100 mg/dL (Normal) Range: 70-110 :48 MAGNESIUM (18588) Comments: PATIENT NOT FASTINGPERFORMED BY: [employer]70 [facility] [id number] Magnesium, Serum 1.6 mg/dL (Normal) Range: 1.6-2.3 :48 TSH (THYROID STIMULATING Comments: PATIENT NOT FASTINGPERFORMED BY: [employer] [facility] [id number] HORMONE) (65460) TSH 6.340 {uIU/mL} (Abnormal) Range: 0.450-4.500 :48 URIC ACID BLOOD (67561) Comments: PATIENT NOT FASTINGPERFORMED BY: [employer] [facility] [id number] Uric Acid, Serum 6.1 mg/dL (Normal) Range: 2.5-7.1 Comments: Therapeutic target for gout patients: <6.0 :09 Blood Glucose , Office (50528) Blood Glucose , Office 116 (Normal) : HgA1C , Office (68048) HgA1C , Office 6.7 % (Normal) Range: 4.6 - 7.1 92-Uoi-603559:19 Basic Metabolic Profile (BMP) Comments: Order Date: 03/12/16 Order #: [id number] Children'S Hospital [address] [place], [place], [address] GAP 7 (Normal) Range: 5-15 CO2 29.0 [...] 7-18 GLU 107 mg/dL (Normal) Range: 70-110 55-Rnh-576585:19 T4 Total, Thyroxin Comments: Order Date: 03/12/16 Order #: [id number] Children'S Hospital [address] [place], [place], [address] T4 THYROXIN 9.4 ug/dL (Normal) Range: 4.8-13.9 81-Aoa-288849:19 Thyroid Stim Hormone (TSH) Comments: Order Date: 03/12/16 Order #: [id number] Children'S Hospital [address] [place], [place], [address] TSH 5.44 {uIU/mL} (Abnormal) Range: 0.358-3.74 85-Cla-172169:49 Aerobic Bacterial Culture Comments: PATIENT NOT FASTINGPERFORMED BY: LabCoRandy [place]ille 7524470 [facility] [id number] Information: RT AXILLA Result 1 MRSA (Abnormal) [...] Negative (Normal) Comments: PATIENT NOT FASTINGPERFORMED BY: LabCo[address] [id number] Information: NASAL 5:49 Culture 41-Uvu-811757:20 Basic Metabolic Profile (BMP) Comments: [facility] [address] [place], [place], [address] GAP 7 (Normal) Range: 5-15 CO2 29.0 [...] A.D.A. criteria. :02 Blood Glucose , Office (76634) Blood Glucose , Office 137 (Normal) :54 Urine Drug Screen (Office - WNL (Normal) Comments: pos for oxy, all else neg Urine Drug Screen 6 Panel) Comments: All negative except Oxy (30043) :52 HgA1C , Office (20019) Comments: 7.3 HgA1C , Office 7.3 % (Abnormal) Range: 4.6 - 7.1 :43 Basic Metabolic Profile (BMP) Comments: DR URBINA ORDERED BMPDR MALCOLM ORDERED LIVER LIPIDAkron Children'S Hospital Duokfhxojs5043 [facility] [place], [address] GAP 3 (Abnormal) Range: 5-15 CO2 33.0 mmol/L (Abnormal) Range: 21.0-32.0 CL 102 mmol/L (Normal) Range: 98-107 K 3.4 mmol/L (Abnormal) Range: 3.5-5.1 Comments: ADDENDA: Denisse at [facility] aware of potassium level NA 138 mmol/L [...] 7-18 GLU 101 mg/dL (Normal) Range: 70-110 0-Wvs-170347:43 Lipid Profile Comments: DR URBINA ORDERED BMPDR MOODISPAW ORDERED LIVER LIPIDWSouthview [facility] Center [address]clblkivk[address] [place], [address] VLDL 26 mg/dL (Normal) Range: [...] 200-240 mg/dL Borderline >240 mg/dL High Risk 4-Lrd-927867:43 Liver Profile Comments: DR URBINA ORDERED BMPDR MOODISPAW ORDERED LIVER LIPIDWSouthview Medical Center [address]unhtu[address] [place], [address] D BILI 0.14 mg/dL (Normal) Range: 0.00-0.30 T BILI 0.40 mg/dL (Normal) Range: 0.20-1.00 ALT 16 U/L (Normal) Range: 12-78 ALK P 112 U/L (Normal) Range: 50-136 AST 19 U/L (Normal) Range: 15-37 GLOB 3.9 g/dL (Abnormal) Range: 2.3-3.5 ALB 3.0 g/dL (Abnormal) Range: 3.4-5.0 T PROT 6.9 g/dL (Normal) Range: 6.4-8.2 3-Bfs-100660:02 Blood Glucose , Office (53184) Blood Glucose , Office 160 (Normal) 30-Npt-263051:37 HgA1C , Office (56367) Comments: 7.2 HgA1C , Office 7.2 % (Abnormal) Range: 4.6 - 7.1 78-Tjo-024438:24 MRSA Culture (80885) Comments: [facility] [address] [place], [address] MRSA RESULT Negative (Normal) 3-Kkg-429914:59 Metabolic Panel, Basic Comments: send to Dr.Masroor Urbina; PATIENT NOT FASTINGPERFORMED BY: [facility] Hdmttp7393 [facility] [id number] Information: [id number] (02462) Calcium, Serum 10.7 mg/dL (Abnormal) Range: 8.7-10.3 [...] Glucose, Serum 182 mg/dL (Abnormal) Range: 65-99 3-Qlq-528711:09 MRSA Culture (24559) Comments: [facility] [address]kaegvfds[address] [place], [address] MRSA RESULT POSITIVE (Abnormal) 30-Mll-09125:39 Lipid Profile Comments: [address] [place], [address] VLDL 23 mg/dL (Normal) Range: [...] mg/dL High Risk :39 Liver Profile Comments: [facility] [address] [place], [place], [id number] ; non-emergent and handled by cardio D BILI 0.14 mg/dL (Normal) Range: 0.00-0.30 T BILI 0.50 mg/dL (Normal) Range: 0.20-1.00 ALT 38 U/L (Normal) Range: 12-78 ALK P 79 U/L (Normal) Range: 50-136 AST 47 U/L (Abnormal) Range: 15-37 GLOB 4.3 g/dL (Abnormal) Range: 2.3-3.5 ALB 3.5 g/dL (Normal) Range: 3.4-5.0 T PROT 7.8 g/dL (Normal) Range: 6.4-8.2 :39 T4 Total, Thyroxin Comments: [facility] [address] [place], [address] T4 THYROXIN 10.9 ug/dL (Normal) Range: 4.8-13.9 :39 Thyroid Stim Hormone (TSH) Comments: [facility] [address] [place], [address] TSH 3.63 {uIU/mL} (Normal) Range: 0.358-3.74 6-Wzm-405298:13 LIPID PANEL (36181) Comments: PATIENT WAS FASTINGPERFORMED BY: LabCoThe Rehabilitation Hospital of Tinton FallsMrwruz3704 [facility] [id number] LDL/HDL Ratio 1.2 {ratio_units} (Normal) Range: 0.0-3.2 [...] Cholesterol, Total 160 mg/dL (Normal) Range: 100-199 7-Cfq-281484:13 CBC W/AUTO DIFF WBC Comments: PATIENT WAS FASTINGPERFORMED BY: TerraWiThe Rehabilitation Hospital of Tinton FallsMpyyvc0913 [facility] [id number] Information: [id number] (45810) Immature Grans (Abs) 0.0 {x10E3/uL} (Normal) Range: [...] 3.77-5.28 WBC 4.5 {x10E3/uL} (Normal) Range: 3.4-10.8 1-Yra-467166:13 METABOLIC PANEL, COMPREHENSIVE Comments: PATIENT WAS FASTINGPERFORMED BY: [facility]6370 [facility] [id number] (73126) ALT (SGPT) 8 [iU]/L (Normal) Range: 0-32 [...] Glucose, Serum 109 mg/dL (Abnormal) Range: 65-99 6-Mzr-485139:15 Basic Metabolic Profile (BMP) Comments: [facility] [address] [place], [address] GAP 7 (Normal) Range: 5-15 CO2 30.0 [...] 200 mg/dLsuggests DIABETES MELLITUS per A.D.A. criteria. 1-Egm-787525:15 CBC W/Diff, Automated Comments: [facility] [address] [place], [place], [address] Absolute Lymph 0.95 {X10_3/ul} (Normal) Range: 0.83-4.51 [...] K/mm3 (Normal) Range: 4.4-11.0 :31 LIPID PANEL (23625) Comments: PATIENT WAS FASTINGPERFORMED BY: [facility]ending[facility]6370 [facility] [id number]; non-emergent till apt LDL/HDL Ratio 1.6 {ratio_units} [...] auto diff Comments: PATIENT WAS FASTINGPERFORMED BY: TerraWiThe Rehabilitation Hospital of Tinton FallsEbsiti1648 [facility] [id number] Information: [id number] (66803) Immature Grans (Abs) 0.0 {x10E3/uL} (Normal) Range: [...] CREATININE RATIO Comments: PATIENT WAS FASTINGPERFORMED BY: [employer] OyUniversity of New Mexico HospitalsBebhmq8537 [facility] [id number] (09261) AND (47153) Microalb/Creat Ratio 93.7 {mg/g_creat} (Abnormal) Range: 0.0-30.0 Microalbumin, Urine 196.4 ug/mL (Abnormal) Range: 0.0-17.0 Creatinine, Urine 209.7 mg/dL (Normal) Range: 15.0-278.0 :31 METABOLIC PANEL, COMPREHENSIVE Comments: PATIENT WAS FASTINGPERFORMED BY: Prob[employer] Olavef0530 [facility] [id number] (04926) ALT (SGPT) 20 [iU]/L (Normal) Range: 0-32 [...] Glucose, Serum 120 mg/dL (Abnormal) Range: 65-99 70-Qrh-111452:31 Hemoglobin Glyclated (HGB A1C) Comments: PATIENT WAS FASTINGPERFORMED BY: LabCoThe Rehabilitation Hospital of Tinton FallsDyuycm8089 [facility] [id number] (05775) Hemoglobin A1c 7.6 % (Abnormal) Range: 4.8-5.6 Comments: . Pre-diabetes: 5.7 - 6.4 Diabetes: >6.4 Glycemic control for adults with diabetes: <7.0 42-Kjh-050464:30 Urinalysis, Complete Comments: Order Date: 07/18/15How was Urine Obtained? [facility] [address] [place], [place], [address] MUCUS, URINE 0 SEEN {/hpf} (Normal) BACTERIA [...] (Abnormal) CLARITY Clear (Normal) COLOR Yellow (Normal) 76-Wrb-814115:43 CBC W/Diff, Automated Comments: [facility] [address] [place], [place], [address] PATH REV May foll (Normal) SMEAR COMMENT [...] Range: 4.4-11.0 :43 Comprehensive Metabolic Profil Comments: [facility] [address] [place], [place], [address] GAP 8 (Normal) Range: 5-15 CO2 33.0 [...] Comments: To be drawn 6H after initial specimenWSouthview Medical Center [address]jbecghy[address] [place], [place], [address] LACTIC ACID 1.7 mmol/L (Normal) Range: 0.4-2.0 45-Vpu-078014:43 Magnesium Comments: [facility] [address] [place], [address] MG 1.3 mg/dL (Abnormal) Range: 1.8-2.4 12-Nrw-936205:43 Partial Thromboplast Time Comments: [facility] [address] [place], [address] PTT 31.4 s (Normal) Range: 24.1-36.2 67-Bcn-850622:43 Phosphorus Comments: [facility] [address] [place], [address] PHOS 1.0 mg/dL (Abnormal) Range: 2.5-4.9 Comments: Critical Result(s) Called at: 17:06:16 07/18/2015 by:Stacey ibarra rn 53-Nmz-467139:43 Prothrombin Time w/INR Comments: [facility] [address] [place], [address] INR 0.9 (Normal) PROTIME 12.8 s (Normal) [...] with abnormal findings in adult : Reviewed Poultry Vaccinator Letter Indication: Encounter for annual general medical [...] DF then follow up q 3 months [facility] Indication: Constipation Hypertensive heart disease without heart [...] - Strool Based DNA Test, CRC SCREEN (42059)Indication: Encounter for screening for malignant neoplasm of colon (Renamed from Special screening for malignant neoplasms, colon) On: 34-Zsm-232059:05 Request FECAL OCCULT- Tubes sent home (82428)Indication: Encounter for screening for malignant neoplasm of colon (Renamed from Special screening for malignant neoplasms, colon) On: 35-Yax-206214:09 Request Lipid Panel (54112)Indication: Diabetes mellitus type 2, insulin dependent On: 77-Tov-436537:08 Request Comments: around January Metabolic Panel, Comprehensive (61946)Indication: Diabetes mellitus type 2, insulin dependent On: 94-Ndr-246310:08 Request Comments: around January CBC, Platelets & Auto Diff (97511)Indication: Diabetes mellitus type 2, insulin dependent On: 90-Ptu-326572:08 Request Comments: around January TSH (66197)Indication: Diabetes mellitus type 2, insulin dependent On: 73-Pja-544865:08 Request Comments: around January Rapid Flu (32112 x 2)Indication: Unspecified Diagnosis On: 13-Zmp-17987:33 Request CBC & PLATELETS (AUTO) (48303)Indication: Abdominal pain On: 7-Jel-024469:57 Request CULTURE, NOSE (20897)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 On: 09-Qkk-091782:31 Request Comments: check for MRSA MRSA Culture (62631)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 On: 74-Cbx-463143:23 Request Comments: rt axila HgA1C , Office (11582)Indication: Diabetes mellitus type 2, insulin dependent On: 19-Bry-178202:21 Request Urinalysis, Office (30468)Indication: History of MRSA infection On: 41-Xdj-749738:42 Request Hemoglobin Glyclated (HGB A1C) (21262)Indication: Diabetes mellitus type 2, uncontrolled On: 48-Ikq-356595:46 Request MICROALBUMIN: CREATININE RATIO (28197) AND (06979)Indication: Hypertensive heart disease without heart failure On: 95-Opj-761084:46 Request Planned Encounters Medical; Walk Assessment - On: 25-Jun-2018 14:30 Comprehensive Internal Medicine Visit, Nurse Medical; 3 Month FU - On: 28-Jul-2018 13:30 Comprehensive Internal Medicine Nav MCKINLEYElsa Marly Chopra CNP [place] Planned Procedures Flu Vaccine (Quadrivalent) [id number]: On: 20-May-2018 Intent Karly Chandra DEXA SCAN AXIAL SKELETON (20289)By: On: 18-Dec-2017 Intent Nav MCKINLEY OneliaMarly Chopra CNP [place] SCREENING DIGITAL TOMOSYNTHESIS OF On: 18-Dec-2017 Intent BREAST (34931)By: Elsa Chopra CNP, CNP [place] Flu Vaccine (Quadrivalent) 12590Gk: On: 11-Jun-2017 Intent aNv MCKINLEY OneliaElsa العلي CNP Comments: InfluenzaLot #[id number]-L dltd, IMDose prefilled syringeVIS and ABN signedgiven by:GENARO blackwood PHYSICAL THERAPY TREATMENT On: 11-Dec-2016 Intent (15961)By: Adelita Doshi LPN PHYSICAL THERAPY EVALUATION On: 11-Dec-2016 Intent (58415)By: Elsa Chopra CNP, CNP, Mary E Toradol Injection, 30 mg (J1885)By: On: 10-Dec-2016 Intent Elsa Chopra CNP, CNP, Mary E Radiology - Hip - RightBy: Nav On: 10-Dec-2016 Intent ARLEN OneliaMarly Chopra CNP [place] Aerosol Treatment (34832)By: Tico On: 16-Oct-2016 Intent Adelita LAM Flu Vaccine (Quadrivalent) [id number]: On: 11-Jul-2016 Intent Nav MCKINLEY OneliaMarly Chopra CNP [place] Comments: FLUlot: A2IL3vbz:01/16site:Lt deltoidroute:IMdose:.5mlBHAVNA SHAW Ultrasound - Abdomen CompleteBy: On: 03-Jul-2016 Intent Elsa Chopra CNP, CNP, Mary E Radiology - KUBBy: Elsa Chopra CNP On: 03-Jul-2016 Intent Elsa Chopra CNP DRAIN/INJECT SMALL JOINT OR BURSA On: 18-May-2016 Intent ()By: Elsa Chopra CNP Comments: to left wrist joint 1/2 cc cuca, 1/2 cc george. [place] lot [id number] exp Marcain lot [id number] ex Elsa MCKINLEY MAMMOGRAM, SCREENING, BOTH BREAST On: 11-May-2016 Intent (32133)By: Elsa Chopra CNP, CNP, [facility] [...] mellitus without complication) : DISCONTINUED - URINALYSIS (92617) Indication: Diabetes mellitus type II, controlled, with no complications (Renamed from Controlled type 2 diabetes mellitus without complication) CKD (chronic kidney disease), stage III : DISCONTINUED - MICROALBUMIN: CREATININE RATIO ([id number]) AND ([id number]) Indication: CKD (chronic kidney disease), stage III Diabetes mellitus type II, controlled, with no complications (Renamed from Controlled type 2 diabetes mellitus without complication) : DISCONTINUED - CBC, PLATELETS & AUT DIFF ([id number]) Indication: Diabetes mellitus type II, controlled, with no complications (Renamed from Controlled type 2 diabetes mellitus without complication) Diabetes mellitus type II, controlled, with no complications (Renamed from Controlled type 2 diabetes mellitus without complication) : DISCONTINUED - METABOLIC PANEL, COMPREHENSIVE (67305) Indication: Diabetes mellitus type II, controlled, with no complications (Renamed from Controlled type 2 diabetes mellitus without complication) Diabetes mellitus type II, controlled, with no complications (Renamed from Controlled type 2 diabetes mellitus without complication) : DISCONTINUED - TSH (60389) Indication: Diabetes mellitus type II, controlled, with [...] dependent : DISCONTINUED - METABOLIC PANEL, BASIC (63859) Indication: Diabetes mellitus type 2, insulin dependent [...] patient does not have durable power of sole ruffer or living will. The patient has noticed getting bored, poor spirits most of time and lack of energy. Other providers contributing to the lyndsey bolton's care are enamel shader () and urologist (). Note for Annual [...] and is sleeping poorly. Patient has been [employer] End: 18-Dec-2017 14:15 pliant with instructions. Current [...] and is sleeping poorly. Patient has been [employer] End: 18-Sep-2017 13:50 pliant with instructions. Current [...] any known injury. The patient is ri [facility] hand dominant. The injury involved the left [...] - Reason for ER visit: note: (surgery [facility]. ). The patient feels [...] MRSA. She has had pre-op testing at [facility] on 10-14-2015, for Lumbar microdecompression for 10-24-[address] Dahl for papers to be signed [...] - sharp pain- went to [facility] ER). Current medication use: no side effects [...] surgeon- - recently went to er at [place] on jul 14 - she was having [...]
--- OUTSIDE RECORDS SUMMARY | 2018-09-25 14:45 | XMS RPT_ITS | Continuity of Care Document ---
:1950 Author Organization [facility] Address [facility] [address] [place] [address] Phone Care Team Providers Name Role Phone Nav ARLENElsa Unavailable Malcolm STANLEY, Casey Florian Unavailable [place] DO , Dr. Aaron Diaz Unavailable John WestfallAnnalisa lynne Unavailable Dr. Abimael Ag Unavailable Kirby STANLEY, Jared Galeano Unavailable Pascale Boston Unavailable Tico REAL ESTATE PROCESSOR, Adelita Unavailable Unavailable Karly Chandra Unavailable Unavailable Remington Oviedo Unavailable Unavailable Long REAL ESTATE PROCESSOR, Dora Orantes Unavailable Unavailable Trina Sorenson Unavailable [...] 585.3) Comments: follows with Dr. Munguia in [place], seen for sarcoidosis currently, stableGFR 40 Status: [...] on wean of steroid Scale 201-250. 5 -546 8 kwoef049-234 10 aqxda729-555 12 units>401 15 unitsad ding metformin not [...] given in L arm subcutaneously paitent tolerated wellLOT#[id number]#2020 NOV 06 Status: Active Postmenopausal (Renamed from Postmenopausal status) (Z78.0, V49.81) Status: Active Pregnancies () Comments: 1. 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) Comments: Sees Ciara at [facility] for sarcoid in bone marrow just saw [...] 0 days Quantity: 60 {Tablet} Refills: 0 Ordered:13-Aug-2018 Tatianaabelardosam MCKINLEY Elsa Leblancsam MCKINLEY Elsa Luke Start : 13-Aug-2018 Active Comments:Haleigh rundx F41.9#60thirty days Melatonin 1 MG Oral Tablet 3 (three) Tablet qhs for 0 days Quantity: 60 {Tablet} Refills: 0 Ordered:12-Mar-2016 Tatianaabelardosam MCKINLEY Elsa Leblancsam MCKINELY Elsa Luke Start : 12-Mar-2016 Active MetFORMIN HCl ER 500 MG Oral Tablet Extended Release 24 Hour 2 (two) Tablet bid for 30 days Quantity: 120 {Tablet} Refills: 6 Ordered:27-May-2018 aNv ARLEN Elsa Leblancsam MCKINLEY Elsa Luke Start [...] {Tablet} Refills: 0 Ordered:03-Jul-2016 Nav ARLEN Elsa Leblancsam MCKINLEY Elsa Luke Start : 03-Jul-2016 Active Comments:Medication taken as needed. Promethazine HCl 25 MG Oral Tablet 1 (one) Tablet q 8hrs as needed for 30 days Quantity: 30 {Tablet} Refills: 1 Ordered:13-Aug-2018 Nav MCKINLEY Elsa Hinton CNP Start : 13-Aug-2018 Active Comments:Medication taken as needed. Synthroid 50 MCG Oral Tablet 1 (one) Tablet daily except Sundays and Tuesdays for 0 days Quantity: 30 {Tablet} Refills: 3 Ordered:06-Aug-2018 Nav MCKINLEY Elsa Hinton CNP Start : 06-Aug-2018 Active Comments:generic only UNISOM, 25MG (Oral Tablet) 2 (two) Tablet Tablet q hs for 30 days Quantity: 60 {Tablet} Refills: 0 Ordered:25-Jul-2015Madeline Start : 18-Jul-2015 Active VITAMIN D3, 70397ZMMH (Oral Capsule) 1 (one) Capsule Capsule once [...] Quantity: 60 {Tablet} Refills: 3 Ordered:22-Mar-2017 Dora cMkeon LPN Start : 20-Mar-2017 End : 22-Mar-2017 [...] Quantity: 1 {Vial} Refills: 6 Ordered:07-Feb-2016 Nav SCRUM PRODUCT OWNER, Elsa Reyes SCRUM PRODUCT OWNER, Elsa Luke Start : 03-Oct-2015 End : 07-Feb-2016 Discontinued LEVEMIR, 100UNIT/ML (Subcutaneous Solution) 20 Solution units each morning for 30 days Quantity: 1 {Vial} Refills: 6 Ordered:20-Jan-2016 Adelita Doshi LPN Start : 21-Oct-2015 End : 20-Jan-2016 Discontinued MACROBID, 100MG (Oral Capsule) q12hrs (100 MG) End : 05-Aug-2015 Discontinued Comments:[facility] MUPIROCIN, 2% (External Ointment) 1 (one) Ointment Ointment apply small amt to q tip qd x5 day for 0 days Quantity: 1 {Tube} Refills: 0 Ordered:07-Nov-2015 Aedlita Doshi LPN Start : 03-Oct-2015 End : [...] Quantity: 60 {QS} Refills: 0 Ordered:18-Dec-2017 Slarb REAL ESTATE PROCESSOR, Adelita Start : 03-Jul-2016 End : 18-Dec-2017 Discontinued PredniSONE 10 MG Oral Tablet 1 (one) Tablet bid x 3 days, then 1 daily x 3 days,then 1/2 daily x 3 for 0 days Quantity: 12 {Tablet} Refills: 0 Ordered:19-Nov-2016 Slarb REAL ESTATE PROCESSOR, Adelita Start : 16-Oct-2016 End : 19-Nov-2016 Discontinued Comments:with food PredniSONE 5 MG Oral Tablet 1 (one) Tablet Tablet qod for 0 days Quantity: 60 {Tablet} Refills: 11 Ordered:12-Mar-2016 Slarb REAL ESTATE PROCESSOR, Adelita Start : 20-Jan-2016 End : 12-Mar-2016 Discontinued Comments:Per Ciara Avila Perles 100 MG Oral Capsule 1 (one) Capsule tid prn for 0 days Quantity: 30 {Capsule} Refills: 0 Ordered:19-Nov-2016 Slarb REAL ESTATE PROCESSOR, Adelita Start : 16-Oct-2016 End : 19-Nov-2016 Discontinued Vancomycin HCl End : 05-Aug-2015 Discontinued Comments:1,250mg IV q24hrs x 57sxxk8,500mg IV q24hrs #14 Allergies and Adverse Reactions [...] Comments: was seeing Dr. Munguia's partner in [place] Dr. Morel, gfr 43%, has proteinuria Status: [...] [facility] Imaging Services [address] [place] [address] Chest PA and Lateral MR#: [id number] Acct: [id number] Name: SHREYAS KATHLEEN Rep #: [id number] : 1950 F 68 From: Blane Shelley MD PCP: Elsa Chopra NP Status: REG CLI Study: Chest PA and Lateral Date of Exam: 07/31/18 Exam# [id number] Ordering Dr: Elsa Chopra MICROWAVE SUPERVISOR-C HISTORY: HX OF SARCOI DOSIS EXAM: XR [...] Service support , CC: Elsa Chopra NP Linux Consultant: Signed 17-Feb-2018 Cardiology Visit Report Result: Comments: See Note; NOTES: [facility] [address] [place] [address] OFFICE VISIT Date of Service: 02/17/18 MR#: [id number] Acct: [id number] Name: SHREYAS KATHLEEN Rep #: [id number] : 1950 Provider: Casey Fowler MD Age/Sex: 67/F Location: [facility] Status: Signed HPI HPI Details: SHREYAS KATHLEEN, is a 67 F who presents to the office today for for outpatien t cardiovascular follow-up of her history of underlying CAD, non-ST segment elevation [place], paroxysmal atrial fibrillation, superimposed upon a history [...] PFSH Medical History Atherosclerotic heart disease of [place] coronary artery without angina pectoris (Chronic) History [...] stenosis Assessment AND Plan 1. Atherosclerosis of [place] coronary artery of [place] heart without angina pectoris I25.10 Mild Plan [...] be scheduled [facility] an outpatient [facility] in [facility] 9 months unless needed sooner. Thank you for allowing me to participate in the care of your patient. Please don't hesitate to call if any issues arise. This note was generated using a voice Matchup system and there may be incorrect words, spelling or punctuation that were not noted when reviewing the office note prior to saving. Follow Up 9 Months Coding Level of Care Code Off vis,est,leve l 4 Diagnoses Atherosclerosis of [place] coronary artery of [place] heart without angina pectoris I25.10 [place] vs. transplanted heart: [place] heart Paroxysmal atrial fibrillation I48.0 Hyperlipidemia, u nspecified hyperlipidemia type E78.5 Hyperlipidemia type: unspecified Essential hypertension I10 Hypertension type: essential hypertension Long-term use of high-risk medication Z79.899 Coding Level of Care Code Off vis,est,level 4 Diagnoses Atherosclerosis of [place] coronary artery of [place] heart without angina pectoris I25.10 [place] vs. transplanted heart: [place] heart Paroxysmal atrial fibrillat ion I48.0 Hyperlipidemia, [...] [facility] [address] [place] [address] SCREENING MAMM (CAD), BILAT MR#: [id number] Acct: [id number] Name: SHREYAS KATHLEEN Rep #: [id number] : 1950 F 67 From: Elias Finn MD PCP: Elsa Chopra NP Status: REG CLI Study: SCREENING MAMM (CAD), BILAT Date of Exam: 02/14/18 Exam# [id number] Ordering Dr: Elsa Chopra MAMMO GRAPHY - [...] will be sent to the [facility] by the facility within 30 days. Approximately 10% of breast cancers are not detected by mammography. A normal mammogram should not delay biopsy of a clinically suspicious abnormality. [id number] Elect ronically Signed: Elias Finn MD at 8:30 EDT Tel [phone], Service support , CC: Elsa Chopra NP Linux Consultant: Signed 21-Jan-2018 Dexa Bone Density Study Result: Comments: See Note; NOTES: [facility] Imaging Services [address] [place] [address] Dexa Bone Density Study MR#: [id number] Acct: [id number] Name: SHREYAS KATHLEEN Rep #: [id number] : 1950 F 67 From: Elias Finn MD PCP: Elsa Chopra NP Status: REG CLI Study: Dexa Bone Density Study Date of Exam: 01/21/18 Exam# [id number] Ordering Dr: Elsa Chopra STUDY: DUAL E [...] Elias Finn MD at 15:36 EDT Tel [phone], Service support , CC: Elsa Chopra NP Linux Consultant: Signed 10-Dec-2016 Hip 2-3 Views with Pelvis Result: Comments: See Note; NOTES: [facility] Imaging Services [address] [place] [address] Verdana 4d Hip 2-3 Views with Pelvis MR#: [id number] Acct: [id number] Name: SHREYAS KATHLEEN Rep #: [id number] : 1950 F 66 From: Herve Jimenez MD PCP: Elas Chopra Status: REG CLI Study: Hip 2-3 Views with Pelvis Date of Exam: 12/10/16 Exam# [id number] Ordering Dr: Elsa Chopra STUDY : X-RAY [...] FACR at 11:31 EDT , Service support [phone], CC: Elsa Chopra Linux Consultant: Signed 05-Jul-2016 Abdomen Complete Result: Comments: See Note; NOTES: [facility] Imaging Services [address] [place] [address] Verda 4d Abdomen Complete MR#: [id number] Acct: [id number] Name: SHREYAS KATHLEEN Keiar Rep #: [id number] : 1950 F 66 From: Elias Finn MD PCP: Elsa Chopra Status: REG CLI Study: Abdomen Complete Date of Exam: 07/05/16 Exam# [id number] Ordering Dr: Elsa Chopra STUDY: ABDOMINAL ULTRASOUND [...] Elias Finn MD at 9:35 EDT Tel [phone], Service support [phone], CC: Elsa Chopra Linux Consultant: Signed 05-Jul-2016 Abdomen Single View Result: Comments: See Note; NOTES: [facility] Imaging Services [address] [place] [address] Verdana 4d Abdomen Single View MR#: [id number] Acct: [id number] Name: SHREYAS KATHLEEN Rep #: [id number] : 1950 F 66 From: Elias Finn MD PCP: Elsa Chopra Status: REG CLI Study: Abdomen Single View Date of Exam: 07/05/16 Exam# [id number] Ordering Dr: Elsa Chopra STUDY: X-RA Y [...] of the L1 vertebrae. ORDER # : [id number] RAD/Abdomen Single View IMPRESSION: Moderate amount of fecal material is seen in the colon. Electronically Signed: Elias Finn MD at 10:34 EDT Tel [phone], Service sup port [phone], CC: Elsa Chopra Linux Consultant: Signed 18-May-2016 Bilat Scrn Digital AND CAD Result: Comments: See Note; NOTES: [facility] Imaging Services [address] [place] [address] Verdana 4d Bilat Scrn Digital AND CAD MR#: [id number] Acct: [id number] Name: HEVERJACINTO Crockett Rep #: [id number] : 1950 F 65 From: Elias Finn MD PCP: Elsa Chopra Status: REG CLI Study: [place] Digital AND CAD Date of Exam: 05/18/16 Exam# [id number] Ordering Dr: Elsa Chopra MAMMOGRAPHY - BILATERAL [...] no significant change since the prior study. [facility]/[place] Digital AND CAD IMPRESSION: Stab le bilateral screening mammogram. Yearly follow-up mammogram recommended. (A) ASSESSMENT CATEGORY: BIRADS Category 1: Negative. A letter regarding these results yane l be sent to the patient by the facility within 30 days. Approximately 10% of breast cancers are not detected by mammography. A normal mammogram should not delay biopsy of a clinically suspicious abnor mality. [id number] Electronically Signed: Elias Finn MD at 12:53 EDT Tel [phone], Service support [phone], CC: Elsa Chopra Linux Consultant: Signed 14-Feb-2016 Shoulder min 2 Views Result: Comments: See Note; NOTES: [facility] Imaging Services [address] [place] [address] Verdana 4d Shoulder min 2 Views MR#: [id number] Acct: [id number] Name: SHREYAS KATHLEEN Rep #: [id number] : 1950 F 65 From: Herve Jimenez MD PCP: Madeline Florez DO Status: REG CLI Study: Shoulder min 2 Views Date of Exam: 02/14/16 Exam# [id number] Ordering Dr: Pascale Boston DO STUDY: X-RAY [...] FACR at 14:50 EDT , Service support [phone], Fax RAD/Shoulder min 2 Views IMPRESSION: Bilateral of the acromioclavicular joint, otherwise normal x-ray examination of the shoulder. Electronically Signed: Herve Jimenez MD, FACR at 14:50 EDT , Service support [phone], CC: Pascale Boston DO; Madeline Florez DO Linux Consultant: Signed 21-Oct-2015 Spirometry (64530) Comments: mod restriction Result: 19-Sep-2015 Chest PA and Lateral Result: Comments: See Note; NOTES: [facility] Imaging Services [address] [place] [address] Nidiadana 4d Chest PA and Lateral MR#: [id number] Acct: [id number] Name: SHREYAS KATHLEEN Rep #: [id number] : 1950 F 65 From: Elias Finn MD PCP: Madeline Florez DO Status: REG CLI Study: Chest PA and Lateral Date of Exam: 09/19/15 Exam# [id number] Ordering Dr: Madeline Florez DO STUDY: X-RAY [...] Elias Finn MD at 13:58 EST Tel [phone], Service support [phone], RAD/Chest PA and Lateral IMPRESSION: Stable examination. No acute abnormality is seen. Electronically Doris d: Elias Fnin MD at 13:58 EST Tel [phone], Service support [phone], CC: Madeline Florez DO Linux Consultant: Signed 25-Aug-2015 Spine Lumbar (Routine) Result: Comments: See Note; NOTES: [facility] Imaging Services [address] [place] [address] Verdavinayak 4d Spine Lumbar (Routine) MR#: [id number] Acct: [id number] Name: SHREYAS MAJOR Rep #: [id number] : 1950 F 65 From: Herve Jimenez MD PCP: Madeline Florez DO Status: REG CLI Study: Spine Lumbar (Routine) Date of Exam: 08/25/15 Exam# [id number] Ordering Dr: ELIZABETH DE LEON M.D. STUDY: [...] FACR at 17:43 EST , Service support [phone], CC: ELIZABETH DE LEON M.D.; Madeline Florez DO Linux Consultant: Signed 25-Aug-2015 Spine Thoracic (Routine) Result: Comments: See Note; NOTES: [facility] Imaging Services [address] [place] [address] Verda 4d Spine Thoracic (Routine) MR#: [id number] Acct: [id number] Name: SHREYAS SHARIF Rep #: [id number] : 1950 F 65 From: Herve Jimenez MD PCP: Madeline Florez DO Status: REG CLI Study: Spine Thoracic (Routine) Date of Exam: 08/25/15 Exam# [id number] Ordering Dr: ELIZABETH RUIZ M.D. STUDY: MRI [...] FACR at 17:45 EST , Service support [phone], CC: ELIZABETH DE LEON M.D.; Komal Florez DO Linux Consultant: Signed 17-Aug-2015 Chest PA and Lateral Result: Comments: See Note; NOTES: [facility] Imaging Services [address] [place] [address] [place] [address] 4d Chest PA and Lateral MR#: [id number] Acct: [id number] Name: SHREYAS KATHLEEN Rep #: [id number] : 1950 F 65 From: Elias Finn MD PCP: Madeline Florez DO Status: REG CLI Study: Chest PA and Lateral Date of Exam: 08/17/15 Exam# [id number] Ordering Dr: Madeline Florez DO STUDY: X-RAY [...] Elias Finn MD at 11:09 EST Tel [phone], Service support [phone], Fax RAD/Chest PA and Lateral IMPRESSION: Residual changes persist in the right middle lobe and there has been some improvement. Further followup is recommended. Electr onically Signed: Elias Finn MD at 11:09 EST Tel [phone], Service support [phone], CC: Madeline Florez DO Linux Consultant: Signed 12-Aug-2015 Discharge Instruction Result: Comments: See Note; NOTES: [facility] Medical Records Department [address] [place] [address] Discharge Instruction 08/10/15 1702 MR#: [id number] Acct: [id number] Name: SHREYAS KATHLEEN Rep #: [id number] : 1950 65 From: Denny Bone MD [...] problems, contact your doctor. Call [facility] ([phone]) or report to the closest Emergency Room. Call 911 if necessary. 08/12/15 1502 <Elect ronically signed by Denny Bone MD> Date Denny Bone MD Cosigner Signature (If Indicated): Date CC: Madeline Florez DO 12-Aug-2015 Emergency Department Summary Result: Comments: See Note; NOTES: [facility] Medical Records Department [address] [place] [address] Emergency Department Summary MR#: [id number] Acct: [id number] Name: SHREYAS KATHLEEN Rep #: [id number] : 1950 65 From: Denny Bone MD [...] the patient had blood cultures obtained at [facility] and they were called to [...] C: Madeline Bonilla MD T: NTS JOB: [id number] 08/12/15 1502 <Electronically signed by Denny Bone MD> Date Denny Bone MD Cosigner Signature (If Indicated): Date ___ CC: Madeline Florez DO; Katelyn Arenas MD Date Dictated: 08/10/151708 Date Transcribed: 08/10/151708 Linux Consultant: Signed Social History Name Dates Details [...] kg/m2 Body Surface Area Calculated 1.85 m2 92-Khd-450702:46 Temperature 97.5 f Pulse 89 /min Comments: [...] unknown, given order todayLast vision screen 2014 [employer]crum Microsystemsna Temperature 98.3 f Pulse 75 /min Comments: [...] Comments: PATIENT NOT FASTINGPERFORMED BY: NEY [facility] [email or web address] [facility] [id number] Bacteria None seen (Normal) Mucus Threads Present (Normal) Cast Type Hyaline casts (Normal) Casts Present {/lpf} (Abnormal) Epithelial Cells (non renal) 0-10 {/hpf} (Normal) Range: 0 - 10 RBC None seen {/hpf} (Normal) Range: 0 - 2 WBC 0-5 {/hpf} (Normal) Range: 0 - 5 48-Lto-562162:42 URINALYSIS (47268) Comments: PATIENT NOT FASTINGPERFORMED BY: milog [employer] [facility] [id number] Information: SRC:UC Microscopic Examination See below: (Normal) Comments: Microscopic was indicated and was performed. Nitrite, Urine Negative (Normal) Urobilinogen,Semi-Qn 0.2 mg/dL (Normal) Range: 0.2-1.0 Bilirubin Negative (Normal) Occult Blood Negative (Normal) Ketones Negative (Normal) Glucose Trace (Abnormal) Protein Trace (Normal) WBC Esterase Trace (Abnormal) Appearance Clear (Normal) Urine-Color Yellow (Normal) pH 7.0 (Normal) Range: 5.0-7.5 Specific [place] 1.010 (Normal) Range: 1.005-1.030 63-Niq-604029:42 URINE RANDELL CULTURE-IDENTIFICATN Comments: PATIENT NOT FASTINGPERFORMED BY: milog [email or web address] Santana [facility] [id number] ([id number]) Result 1 MUG (Normal) Comments: Mixed urogenital flora25,000-50,000 colony forming units per mL Urine Final report (Normal) Culture,Comprehensive 13-Xgd-334697:49 PARATHORMONE (79876) Comments: PATIENT NOT FASTINGPERFORMED BY: [employer] [id number] [facility] [id number] PTH, Intact 45 pg/mL (Normal) Range: 15-65 66-Ekm-559514:49 CBC, Platelets & Auto Diff Comments: PATIENT NOT FASTINGPERFORMED BY: [employer] Adlyyd2732 [facility] [id number] (78852) Immature Grans (Abs) 0.0 {x10E3/uL} (Normal) Range: [...] 3.77-5.28 WBC 11.4 {x10E3/uL} (Abnormal) Range: 3.4-10.8 88-Joa-016217:49 Metabolic Panel, Comprehensive Comments: PATIENT NOT FASTINGPERFORMED BY: [facility]CoSpecial[facility] at MonmouthAqygpy7719 [facility] [id number] (59305) ALT (SGPT) 9 [iU]/L (Normal) Range: 0-32 [...] 8-27 Glucose 136 mg/dL (Abnormal) Range: 65-99 83-Jek-068813:44 URINE CALCIUM ZEINAB TIMED Comments: PATIENT NOT FASTINGPERFORMED BY: NEY [email or web address] [facility] [id number] Information: START 07/30/18@7AM (07948) Calcium, Urine 24hr 56.0 {mg/24_hr} (Abnormal) Range: 100.0-300.0 Calcium, Urine 2.8 mg/dL (Normal) 76-Sub-088710:26 HgA1C , Office (10945) HgA1C , Office 6.4 % (Normal) Range: 4.6 - 7.1 36-Qmo-909884:26 Blood Glucose , Office (32728) Blood Glucose , Office 163 (Normal) 01-Hqc-48804:00 MICROALBUMIN: CREATININE RATIO Comments: Jun 19; PATIENT WAS FASTINGPERFORMED BY: [email or web address] [facility] [id number] (36816) AND (18911) Alb/Creat Ratio 266.9 {mg/g_creat} (Abnormal) Range: 0.0-30.0 Albumin, Urine 168.7 ug/mL (Normal) Creatinine, Urine 63.2 mg/dL (Normal) 04-Zus-95476:00 Metabolic Panel, Comprehensive Comments: Jun 19; PATIENT WAS FASTINGPERFORMED BY: [email or web address] [facility] [id number] (20769) ALT (SGPT) 14 [iU]/L (Normal) Range: 0-32 [...] 8-27 Glucose 121 mg/dL (Abnormal) Range: 65-99 56-Mlq-61040:00 HGB A1C (24919) Comments: June 19; PATIENT WAS FASTINGPERFORMED BY: [employer] [facility] [id number] Hemoglobin A1c 7.0 % (Abnormal) Range: 4.8-5.6 Comments: . Prediabetes: 5.7 - 6.4 Diabetes: >6.4 Glycemic control for adults with diabetes: <7.0 12-Kdd-505298:33 ALKALINE PHOSPHATASE-ISOENZYM Comments: PATIENT NOT FASTINGPERFORMED BY: [facility] [id number] (61654) Intestinal Frac.: 0 % (Normal) Range: 0-18 Bone Fraction: 27 % (Normal) Range: 14-68 Liver Fraction: 73 % (Normal) Range: 18-85 Alkaline Phosphatase 89 [iU]/L (Normal) Range: 39-117 38-Zpz-442331:33 CBC, Platelets & Auto Diff Comments: PATIENT NOT FASTINGPERFORMED BY: [facility] Zokkqm7278 [place] [id number] (64623) Immature Grans (Abs) 0.0 {x10E3/uL} (Normal) Range: [...] 3.77-5.28 WBC 5.9 {x10E3/uL} (Normal) Range: 3.4-10.8 24-Zaf-100530:22 HgA1C , Office (45259) Comments: 7.3 HgA1C , Office 7.3 % (Abnormal) Range: 4.6 - 7.1 53-Yus-526361:22 Blood Glucose , Office (16339) Blood Glucose , Office 173 (Normal) 57-Kag-34981:40 Basic Metabolic Profile (BMP) Comments: SEND RESULTS OF BMP TO .[facility] [address] [place], [place], [id number] GAP 11 (Normal) Range: 5-15 CO2 27.0 [...] A.D.A. criteria.Please note revised GLUCOSE reference range tbnfividf02/02/2018. 86-Dpc-13268:40 Liver Profile Comments: SEND RESULTS OF BMP TO .[facility] [address] [place], [place], [address] D BILI 0.09 mg/dL (Normal) Range: 0.00-0.30 T BILI 0.40 mg/dL (Normal) Range: 0.20-1.00 ALT 22 U/L (Normal) Range: 13-56 ALK P 103 U/L (Normal) Range: 45-117 AST 17 U/L (Normal) Range: 15-37 GLOB 4.0 g/dL (Normal) Range: 2.2-4.2 ALB 3.8 g/dL (Normal) Range: 3.2-5.0 T PROT 7.8 g/dL (Normal) Range: 6.4-8.2 14-Eki-831594:41 CALCIFEDIOL (29474) Comments: PATIENT WAS FASTINGPERFORMED BY: VizeraLabsSoutheast Missouri Community Treatment CenterScrbld7005 [facility] [id number] Vitamin D, 25-Hydroxy 44.2 ng/mL (Normal) Range: 30.0-100.0 Comments: Vitamin D deficiency has been defined by the [place] ofMedicine and an Endocrine Society practice guideline as alevel of serum 25-OH vitamin D less than 20 ng/mL (1,2).The Endocrine Society went on to further define vitamin Dinsufficiency as a level between 21 and 29 ng/mL (2).1. IOM ([place] of Medicine). 2010. Dietary reference intakes for calcium and D. [place]: The National Academies Press.2. Jacinto MF, Eddy NC, Quintin JAVED, et al. Evaluation, treatment, and prevention of vitamin D deficiency: an Endocrine Society clinical practice guideline. JCEM. 2010; 96(7):1911-30. 30-Rpk-422875:41 METABOLIC PANEL, Comments: PATIENT WAS FASTINGPERFORMED BY: [facility]LabsMar[facility] Hospital6370 [facility] [id number] Information: 612408,D79736; OV 03/19 COMPREHENSIVE (82476) ALT (SGPT) 15 [iU]/L (Normal) Range: 0-32 [...] 8-27 Glucose 143 mg/dL (Abnormal) Range: 65-99 69-Xar-535381:31 Blood Glucose , Office (54946) Blood Glucose , Office 211 (Normal) 81-Vkb-547309:31 HgA1C , Office (65920) HgA1C , Office 6.8 % (Normal) Range: 4.6 - 7.1 :33 CBC, Platelets & Auto Diff Comments: PATIENT WAS FASTINGPERFORMED BY: [facility]CoSpecial[facility] Hospital at MonmouthQvtmui0412 [facility] [id number] (16736) Immature Grans (Abs) 0.0 {x10E3/uL} (Normal) Range: [...] 3.77-5.28 WBC 7.7 {x10E3/uL} (Normal) Range: 3.4-10.8 09-Dlv-611076:33 Lipid Panel (45979) Comments: PATIENT WAS FASTINGPERFORMED BY: [employer] Rddehd8192 [facility] [id number] LDL/HDL Ratio 0.9 {ratio} (Normal) Range: 0.0-3.2 Comments: LDL/HDL Ratio Men Women 1/2 Avg.Risk 1.0 1.5 Av g.Risk 3.6 3.2 2X Avg.Risk 6.2 5.0 3X Avg.Risk 8.0 6.1 LDL Cholesterol Calc 35 mg/dL (Normal) Range: 0-99 VLDL Cholesterol Kiesha 53 mg/dL (Abnormal) Range: 5-40 HDL Cholesterol 41 mg/dL (Normal) Triglycerides 264 mg/dL (Abnormal) Range: 0-149 Cholesterol, Total 129 mg/dL (Normal) Range: 100-199 47-Djw-672639:33 Metabolic Panel, Comprehensive Comments: PATIENT WAS FASTINGPERFORMED BY: [employer] Zvrezk0897 [facility] [id number] (77070) ALT (SGPT) 18 [iU]/L (Normal) Range: 0-32 [...] CREATININE RATIO Comments: PATIENT WAS FASTINGPERFORMED BY: [facility]istUNC [facility] [id number] (56916) AND (91841) Alb/Creat Ratio 225.5 {mg/g_creat} (Abnormal) Range: 0.0-30.0 Albumin, Urine 112.5 ug/mL (Normal) Creatinine, Urine 49.9 mg/dL (Normal) :33 URINALYSIS (79805) Comments: PATIENT WAS FASTINGPERFORMED BY: BigTwistUNC [facility] [id number] Microscopic Examination See below: (Normal) Comments: Microscopic was indicated and was performed. Nitrite, Urine Negative (Normal) Urobilinogen,Semi-Qn 0.2 mg/dL (Normal) Range: 0.2-1.0 Bilirubin Negative (Normal) Occult Blood Negative (Normal) Ketones Negative (Normal) Glucose Negative (Normal) Protein Trace (Normal) WBC Esterase 2+ (Abnormal) Appearance Clear (Normal) Urine-Color Yellow (Normal) pH 6.5 (Normal) Range: 5.0-7.5 Specific [place] 1.014 (Normal) Range: 1.005-1.030 :33 TSH (08014) Comments: PATIENT WAS FASTINGPERFORMED BY: [facility]TwistUNC [facility] [id number] TSH 3.870 {uIU/mL} (Normal) Range: 0.450-4.500 71-Tmn-917631:33 Microscopic Examination Comments: PATIENT WAS FASTINGPERFORMED BY: [employer] Gqjwdl6522 [facility] [id number] Bacteria Few (Normal) Mucus Threads Present (Normal) Cast Type Hyaline casts (Normal) Casts Present {/lpf} (Abnormal) Epithelial Cells (non renal) >10 {/hpf} (Abnormal) Range: 0 - 10 RBC 0-2 {/hpf} (Normal) Range: 0 - 2 WBC 11-30 {/hpf} (Abnormal) Range: 0 - 5 :57 HgA1C , Office (00541) Comments: 6.6 HgA1C , Office 6.6 % (Normal) Range: 4.6 - 7.1 :57 Blood Glucose , Office (06394) Blood Glucose , Office 211 (Normal) :53 HEPATIC FUNCTION PANEL Comments: PATIENT NOT FASTINGPERFORMED BY: [email or web address] [facility] [id number] (72041) ALT (SGPT) 13 [iU]/L (Normal) Range: 0-32 AST (SGOT) 17 [iU]/L (Normal) Range: 0-40 Alkaline Phosphatase, S 89 [iU]/L (Normal) Range: 39-117 Bilirubin, Direct 0.08 mg/dL (Normal) Range: 0.00-0.40 Bilirubin, Total <0.2 mg/dL (Normal) Range: 0.0-1.2 Albumin, Serum 4.2 g/dL (Normal) Range: 3.6-4.8 Protein, Total, Serum 6.8 g/dL (Normal) Range: 6.0-8.5 :53 RWFCI-NNJCDRIYBBW-KZVTC (04530) Comments: PATIENT NOT FASTINGPERFORMED BY: [employer] Rtuetf1528 [facility] [id number] AFP, Serum, Tumor Marker 2.6 ng/mL (Normal) Range: 0.0-8.3 Comments: [email or web address] ECLIA methodology :53 ALKALINE PHOSPHATASE-ISOENZYM Comments: PATIENT NOT FASTINGPERFORMED BY: [employer] Dwpler4490 [facility] [id number] (34291) Intestinal Frac.: 5 % (Normal) Range: 0-18 Bone Fraction: 24 % (Normal) Range: 14-68 Liver Fraction: 71 % (Normal) Range: 18-85 18-Iwc-858999:11 ALKALINE PHOSPHATASE-ISOENZYM Comments: PATIENT NOT FASTINGPERFORMED BY: CB [facility] Qdnvve9505 [address]ana RoadDublin [place] [id number] (99467) Intestinal Frac.: 3 % (Normal) Range: 0-18 Bone Fraction: 19 % (Normal) Range: 14-68 Liver Fraction: 78 % (Normal) Range: 18-85 Alkaline Phosphatase, S 122 [iU]/L (Abnormal) Range: 39-117 :11 CALCIFEDIOL (25926) Comments: PATIENT NOT FASTINGPERFORMED BY: CB [facility] Kcytbb6980 [address]ana RoadDublin [place] [id number] Vitamin D, 25-Hydroxy 37.5 ng/mL (Normal) Range: 30.0-100.0 Comments: Vitamin D deficiency has been defined by the [place] ofMedicine and an Endocrine Society practice guideline as alevel of serum 25-OH vitamin D less than 20 ng/mL (1,2).The Endocrine Society went on to further define vitamin Dinsufficiency as a level between 21 and 29 ng/mL (2).1. IOM ([place] of Medicine). 2010. Dietary reference intakes for calcium and D. [place]: The National Academies Press.2. Jacinto MF, Eddy NC, Quintin JAVED, et al. Evaluation, treatment, and prevention of vitamin D deficiency: an Endocrine Society clinical practice guideline. JCEM. 2010; 96(7):1911-30. 71-Ieu-696453:11 TSH (15390) Comments: PATIENT NOT FASTINGPERFORMED BY: CB [facility] Qlldgm8001 [address] RoadDublin [place] [id number] TSH 1.620 {uIU/mL} (Normal) Range: 0.450-4.500 05-Nia-256096:11 T4, FREE (THYROXINE) (16320) Comments: PATIENT NOT FASTINGPERFORMED BY: CB [facility] Ryhttr4614 [address] RoadDublin [place] [id number] T4,Free(Direct) 1.00 ng/dL (Normal) Range: 0.82-1.77 56-Fze-184782:11 T3, FREE (TRIDOTHYRONINE) (27047) Comments: PATIENT NOT FASTINGPERFORMED BY: NEY [facility] Itfaja8396 [facility] [id number] Triiodothyronine,Free,Serum 2.5 pg/mL (Normal) Range: 2.0-4.4 :08 HgA1C , Office (49579) HgA1C , Office 7.4 % (Abnormal) Range: 4.6 - 7.1 :08 Blood Glucose , Office (66516) Blood Glucose , Office 190 (Normal) :30 Lipid Profile Comments: Order Date: 12/12/16Order Info: 0788-1 - *Hepatic Function PanelOrder Info: 34656-9 - *Lipid Profile CC PCPComments: 12 hours fasting, may have water.Comments: 6 months / [facility] Pikifaeaon[address] [place], [place], [address] VLDL 46 mg/dL (Abnormal) Range: 5-40 LDL [...] Info: 0788-1 - *Hepatic Function PanelOrder Info: 69964-4 - *Lipid Profile CC PCPComments: 12 hours fasting, may have water.Comments: 6 months / [facility]WS[facility] [address]nxbv[address] [place], [address] D BILI 0.11 mg/dL (Normal) Range: 0.00-0.30 [...] of Apr 09; PATIENT NOT FASTINGPERFORMED BY: [employer] SantanaAmberPointUNC Health Rex [facility] [id number] HORMONE) (02615) TSH 0.728 {uIU/mL} (Normal) Range: 0.450-4.500 :55 HgA1C , Office (30627) HgA1C , Office 6.9 % (Normal) Range: 4.6 - 7.1 :55 Blood Glucose , Office (31198) Blood Glucose , Office 143 (Normal) 33-Cts-349303:11 Microscopic Examination Comments: PATIENT WAS FASTINGPERFORMED BY: [employer] [address] [facility] [id number] Bacteria Few (Normal) Mucus Threads Present (Normal) Cast Type Hyaline casts (Normal) Casts Present {/lpf} (Abnormal) Epithelial Cells (non renal) 0-10 {/hpf} (Normal) Range: 0 - 10 RBC 0-2 {/hpf} (Normal) Range: 0 - 2 WBC 6-10 {/hpf} (Abnormal) Range: 0 - 5 65-Ufu-243714:11 URINALYSIS, W/ MICRO (47450) Comments: January 2017; PATIENT WAS FASTINGPERFORMED BY: [employer] [facility] [id number] Microscopic Examination See below: (Normal) Comments: Microscopic was indicated and was performed. Nitrite, Urine Negative (Normal) Urobilinogen,Semi-Qn 0.2 mg/dL (Normal) Range: 0.2-1.0 Bilirubin Negative (Normal) Occult Blood Negative (Normal) Ketones Negative (Normal) Glucose Trace (Abnormal) Protein 1+ (Abnormal) WBC Esterase 1+ (Abnormal) Appearance Clear (Normal) Urine-Color Yellow (Normal) pH 6.5 (Normal) Range: 5.0-7.5 Specific [place] 1.016 (Normal) Range: 1.005-1.030 67-Lye-817174:11 MICROALBUMIN: CREATININE RATIO Comments: January 2017; PATIENT WAS FASTINGPERFORMED BY: [employer] AUNC [facility] [id number] (86889) AND (52803) Microalb/Creat Ratio 208.2 {mg/g_creat} (Abnormal) Range: 0.0-30.0 Microalbumin, Urine 182.2 ug/mL (Normal) Creatinine, Urine 87.5 mg/dL (Normal) 09-Fbh-259504:11 CBC, Platelets & Auto Diff Comments: January 2017; PATIENT WAS FASTINGPERFORMED BY: [employer]6370 [employer] AUNC [facility] [id number] (48868) Immature Grans (Abs) 0.0 {x10E3/uL} (Normal) Range: [...] 3.77-5.28 WBC 5.6 {x10E3/uL} (Normal) Range: 3.4-10.8 65-Xhp-142704:11 Metabolic Panel, Comprehensive Comments: January 2017; PATIENT WAS FASTINGPERFORMED BY: LabCoSpecialty Hospital at MonmouthHpswiu6935 [facility] [id number] (90244) ALT (SGPT) 13 [iU]/L (Normal) Range: 0-32 [...] Glucose, Serum 120 mg/dL (Abnormal) Range: 65-99 22-Azs-851552:11 TSH (THYROID STIMULATING Comments: January 2017; PATIENT WAS FASTINGPERFORMED BY: [facility] Yqpmnr7725 [facility] [id number] HORMONE) (40896) TSH 0.982 {uIU/mL} (Normal) Range: 0.450-4.500 2-Lsd-897618:02 Lipid Profile Comments: Order Date: 12/04/16Order Info: 0788-1 - *Hepatic Function PanelOrder Date: 12/04/16Order Info: 92956-0 - *Lipid Profile CC PCPComments: 12 hours fasting, may have water.[place] [address] [place], [place], [address] VLDL 36 mg/dL (Normal) Range: 5-40 LDL [...] 200-240 mg/dL Borderline >240 mg/dL High Risk 2-Roy-241311:02 Liver Profile Comments: Order Date: 12/04/16Order Info: 0788-1 - *Hepatic Function PanelOrder Date: 12/04/16Order Info: 88047-9 - *Lipid Profile CC PCPComments: 12 hours fasting, may have water.[place] [address] [place], [place], [address] D BILI 0.07 mg/dL (Normal) Range: 0.00-0.30 T BILI 0.30 mg/dL (Normal) Range: 0.20-1.00 ALT 21 U/L (Normal) Range: 12-78 ALK P 112 U/L (Normal) Range: 45-117 AST 19 U/L (Normal) Range: 15-37 GLOB 3.8 g/dL (Abnormal) Range: 2.3-3.5 ALB 3.4 g/dL (Normal) Range: 3.4-5.0 T PROT 7.2 g/dL (Normal) Range: 6.4-8.2 61-Yus-688398:29 URINE RANDELL CULTURE-ZEINAB COL Comments: PATIENT NOT FASTINGPERFORMED BY: [employer] [facility] [id number] Information: SRC:UC COUNT (59078) Result 1 MUG (Normal) Comments: Mixed urogenital flora25,000-50,000 colony forming units per mL Urine Final report (Normal) Culture,Comprehensive 18-Qvm-153942:53 Urinalysis, Office (73050) UA - LEUKOCYTE ESTERASE Small (Normal) UA - NITRITE Negative (Normal) URINE UROBILINGN ZEINAB TIMED Normal mg/dL (Normal) UA - PROTEIN Negative mg/dL (Normal) UA - PH 7 (Normal) UA - BLOOD Negative (Normal) UA - SPECIFIC GRAVITY 1.020 (Normal) UA - KETONES Negative mg/dL (Normal) UA - BILIRUBIN Small (Normal) UA - GLUCOSE Negative (Normal) 98-Crp-172944:51 Blood Glucose , Office (85383) Comments: 169 Blood Glucose , Office 169 (Normal) 93-Nch-790615:52 HgA1C , Office (33361) Comments: 7.0 HgA1C , Office 7.0 % (Normal) Range: 4.6 - 7.1 :22 URINE RANDELL CULTURE-IDENTIFICATN Comments: PATIENT NOT FASTINGPERFORMED BY: LabCoSpecialty Hospital at MonmouthFnzdgw8981 [facility] [id number] Information: SRC:UC (83385) Result 1 MUG (Normal) Comments: Mixed urogenital flora10,000-25,000 colony forming units per mL Urine Final report (Normal) Culture,Comprehensive 40-Fnf-147145:05 Urinalysis, Office (51027) UA - LEUKOCYTE ESTERASE Negative (Normal) UA - NITRITE Negative (Normal) URINE UROBILINGN ZEINAB TIMED Normal mg/dL (Normal) UA - PROTEIN 30 mg/dL (Normal) UA - PH 6 (Abnormal) UA - BLOOD non-hemolyzed trace (Normal) UA - SPECIFIC GRAVITY 1.020 (Normal) UA - KETONES Negative mg/dL (Normal) UA - BILIRUBIN Negative (Normal) UA - GLUCOSE 100 (Abnormal) :42 HgA1C , Office (24982) HgA1C , Office 6.2 % (Normal) Range: 4.6 - 7.1 :42 Blood Glucose , Office (82674) Blood Glucose , Office 137 (Normal) 4-Kha-875959:01 TSH (THYROID STIMULATING Comments: PATIENT NOT FASTINGPERFORMED BY: BigTwistUNC [facility] [id number] HORMONE) (73621) TSH 1.820 {uIU/mL} (Normal) Range: 0.450-4.500 :03 HEPATIC FUNCTION PANEL Comments: PATIENT NOT FASTINGPERFORMED BY: BigTwistUNC [facility] [id number] (19322) ALT (SGPT) 15 [iU]/L (Normal) Range: 0-32 AST (SGOT) 23 [iU]/L (Normal) Range: 0-40 Alkaline Phosphatase, S 95 [iU]/L (Normal) Range: 39-117 Bilirubin, Direct 0.12 mg/dL (Normal) Range: 0.00-0.40 Bilirubin, Total 0.3 mg/dL (Normal) Range: 0.0-1.2 Albumin, Serum 4.3 g/dL (Normal) Range: 3.6-4.8 Protein, Total, Serum 7.3 g/dL (Normal) Range: 6.0-8.5 :03 MJILW-IPBFEIUSKQD-CKROH (29091) Comments: PATIENT NOT FASTINGPERFORMED BY: BigTwistUNC [facility] [id number] AFP, Serum, Tumor Marker 2.8 ng/mL (Normal) Range: 0.0-8.3 Comments: [employer] methodology 1-Mjv-926225:03 HEPATITIS PANEL (14668) Comments: PATIENT NOT FASTINGPERFORMED BY: [facility] Mglpjy3646 [address] [facility] [id number] Hep C Virus Ab <0.1 {s/co_ratio} (Normal) Range: 0.0-0.9 Comments: Negative: < 0.8 Indeterminate: 0.8 - 0.9 Positive: > 0.9 . The CDC recommends that a positive HCV antibody result be followed up with a HCV Nucleic Acid Amplification test (132223). Hep B Core Ab, IgM Negative (Normal) HBsAg Screen Negative (Normal) Hep A Ab, IgM Negative (Normal) :58 CBC W/Diff, Automated Comments: CBCD FOR DR CHATMANFramingham Union Hospitalisma [facility] [place] [place] [address] [place], [address] Absolute Lymph 1.84 {X10_3/ul} (Normal) Range: 0.83-4.51 [...] Order Date: 05/14/16Interface Comments: Reason:Order Date: 05/14/16[facility] [address] [place], [place], [address] T4 THYROXIN 11.6 ug/dL (Normal) Range: 4.8-13.9 :58 Thyroid Stim Hormone (TSH) Comments: Order Date: 05/14/16Interface Comments: Reason:Order Date: 05/14/16[facility] [address] [place], [address] TSH 1.96 {uIU/mL} (Normal) Range: 0.358-3.74 :11 Urinalysis, Office (53497) UA - LEUKOCYTE ESTERASE Small (Normal) UA - NITRITE Negative (Normal) URINE UROBILINGN ZEINAB TIMED Normal mg/dL (Normal) UA - PROTEIN 30 mg/dL (Normal) UA - PH 6 (Abnormal) UA - BLOOD Negative (Normal) UA - SPECIFIC GRAVITY 1.010 (Normal) UA - KETONES Negative mg/dL (Normal) UA - BILIRUBIN Negative (Normal) UA - GLUCOSE Negative (Normal) :50 Basic Metabolic Profile (BMP) Comments: [facility] [address] [place], [place], [address] GAP 7 (Normal) Range: 5-15 CO2 33.0 [...] 100 mg/dL (Normal) Range: 70-110 :48 MAGNESIUM (84002) Comments: PATIENT NOT FASTINGPERFORMED BY: [employer]6370 [facility] [id number] Magnesium, Serum 1.6 mg/dL (Normal) Range: 1.6-2.3 :48 TSH (THYROID STIMULATING Comments: PATIENT NOT FASTINGPERFORMED BY: [employer] [facility] Dzxmqu1180 [facility] [id number] HORMONE) (60856) TSH 6.340 {uIU/mL} (Abnormal) Range: 0.450-4.500 :48 URIC ACID BLOOD (50397) Comments: PATIENT NOT FASTINGPERFORMED BY: [employer] [facility] Pnmbqi8231 [facility] [id number] Uric Acid, Serum 6.1 mg/dL (Normal) Range: 2.5-7.1 Comments: Therapeutic target for gout patients: <6.0 :09 Blood Glucose , Office (17311) Blood Glucose , Office 116 (Normal) :09 HgA1C , Office (46781) HgA1C , Office 6.7 % (Normal) Range: 4.6 - 7.1 :19 Basic Metabolic Profile (BMP) Comments: Order Date: 03/12/16OV Order #: [id number] [facility] [address]zrh[address] [place], [address] GAP 7 (Normal) Range: 5-15 CO2 29.0 [...] Thyroxin Comments: Order Date: 03/12/16 Order #: [id number] Riverside Methodist Hospital [address]ayeillfg[address] [place], [place], [address] T4 THYROXIN 9.4 ug/dL (Normal) Range: 4.8-13.9 :19 Thyroid Stim Hormone (TSH) Comments: Order Date: 03/12/16 Order #: [id number] Riverside Methodist Hospital [address]cjlx[address] [place], [place], [address]27(021) TSH 5.44 {uIU/mL} (Abnormal) Range: 0.358-3.74 49-Lvm-904356:49 Aerobic Bacterial Culture Comments: PATIENT NOT FASTINGPERFORMED BY: [facility] Oijlsw1701 [facility] [id number] Information: RT AXILLA Result 1 MRSA (Abnormal) [...] Comments: PATIENT NOT FASTINGPERFORMED BY: CB [facility] Xcymyq2755 [address]ana RoadDublin [place] [id number] Information: NASAL 5:49 Culture 68-Vub-961898:20 Basic Metabolic Profile (BMP) Comments: [facility] [address]nlfv[address]ux[address] [place], [address] GAP 7 (Normal) Range: 5-15 CO2 29.0 [...] A.D.A. criteria. :02 Blood Glucose , Office (17009) Blood Glucose , Office 137 (Normal) :54 Urine Drug Screen (Office - WNL (Normal) Comments: pos for oxy, all else neg Urine Drug Screen 6 Panel) Comments: All negative except Oxy (43886) :52 HgA1C , Office (94462) Comments: 7.3 HgA1C , Office 7.3 % (Abnormal) Range: 4.6 - 7.1 2-Vhv-867908:43 Basic Metabolic Profile (BMP) Comments: DR URBINA ORDERED BMPDR [facility]USKEGEEISPAW ORDERED LIVER LIPIDOhiohealth Riverside Methodist Hospital [address]mbj[address] [place], [address] GAP 3 (Abnormal) Range: 5-15 CO2 33.0 mmol/L (Abnormal) Range: 21.0-32.0 CL 102 mmol/L (Normal) Range: 98-107 K 3.4 mmol/L (Abnormal) Range: 3.5-5.1 Comments: ADDENDA: Denisse at [facility] aware of potassium level NA 138 [...] 7-18 GLU 101 mg/dL (Normal) Range: 70-110 0-Jdl-762272:43 Lipid Profile Comments: DR URBINA ORDERED BMPDR MOODISPAW ORDERED LIVER LIPIDOhiohealth Riverside Methodist Hospital [address]fktds[address] [place], [place], [address] VLDL 26 mg/dL (Normal) Range: 5-40 LDL [...] 200-240 mg/dL Borderline >240 mg/dL High Risk 2-Cax-693238:43 Liver Profile Comments: DR URBINA ORDERED BMPDR MOODISLEANN ORDERED LIVER LIPIDWEast [facility] [address]jcmciq[address] [place], [place], [address] D BILI 0.14 mg/dL (Normal) Range: 0.00-0.30 T BILI 0.40 mg/dL (Normal) Range: 0.20-1.00 ALT 16 U/L (Normal) Range: 12-78 ALK P 112 U/L (Normal) Range: 50-136 AST 19 U/L (Normal) Range: 15-37 GLOB 3.9 g/dL (Abnormal) Range: 2.3-3.5 ALB 3.0 g/dL (Abnormal) Range: 3.4-5.0 T PROT 6.9 g/dL (Normal) Range: 6.4-8.2 4-Ijr-628241:02 Blood Glucose , Office (28991) Blood Glucose , Office 160 (Normal) 53-Jhs-202912:37 HgA1C , Office (13096) Comments: 7.2 HgA1C , Office 7.2 % (Abnormal) Range: 4.6 - 7.1 28-Lkr-920073:24 MRSA Culture (48367) Comments: [facility] K[address]irkm[address] [place], [place], [address] MRSA RESULT Negative (Normal) 2-Xzw-210787:59 Metabolic Panel, Basic Comments: send to Dr.Masroor Urbina; PATIENT NOT FASTINGPERFORMED BY: LabCoLos Alamos Medical CenterCghagg8738 [facility] [id number] Information: [id number] (02960) Calcium, Serum 10.7 mg/dL (Abnormal) Range: 8.7-10.3 [...] Glucose, Serum 182 mg/dL (Abnormal) Range: 65-99 5-Jqq-895676:09 MRSA Culture (63840) Comments: [facility] [address] [place], [address] MRSA RESULT POSITIVE (Abnormal) :39 Lipid Profile Comments: [facility] [address] [place], [address] VLDL 23 mg/dL (Normal) Range: [...] High Risk :39 Liver Profile Comments: [facility] [address] [place], [address] ; non-emergent and handled by [...] 6.4-8.2 :39 T4 Total, Thyroxin Comments: [facility] [address] [place], [place], [address] T4 THYROXIN 10.9 ug/dL (Normal) Range: 4.8-13.9 :39 Thyroid Stim Hormone (TSH) Comments: [facility] [address] [place], [place], [address] TSH 3.63 {uIU/mL} (Normal) Range: 0.358-3.74 1-Qyb-956456:13 LIPID PANEL (11710) Comments: PATIENT WAS FASTINGPERFORMED BY: LabCoBlockAvenue Mzzdgg6115 [facility] [id number] LDL/HDL Ratio 1.2 {ratio_units} (Normal) Range: 0.0-3.2 [...] Cholesterol, Total 160 mg/dL (Normal) Range: 100-199 9-Apa-634927:13 CBC W/AUTO DIFF WBC Comments: PATIENT WAS FASTINGPERFORMED BY: LabCoCondition OneDdacwo9558 [facility] [id number] Information: [id number] (46952) Immature Grans (Abs) 0.0 {x10E3/uL} (Normal) Range: [...] 3.77-5.28 WBC 4.5 {x10E3/uL} (Normal) Range: 3.4-10.8 2-Jxh-526437:13 METABOLIC PANEL, COMPREHENSIVE Comments: PATIENT WAS FASTINGPERFORMED BY: LabCoSpecialty Hospital at MonmouthSdsiyt8740 [facility] [id number] (62980) ALT (SGPT) 8 [iU]/L (Normal) Range: 0-32 [...] Glucose, Serum 109 mg/dL (Abnormal) Range: 65-99 4-Xht-738174:15 Basic Metabolic Profile (BMP) Comments: [facility] [address] [place], [place], [address] GAP 7 (Normal) Range: 5-15 CO2 30.0 [...] 200 mg/dLsuggests DIABETES MELLITUS per A.D.A. criteria. 2-Lhd-099519:15 CBC W/Diff, Automated Comments: [facility] [address] [place], [place], [address] Absolute Lymph 0.95 {X10_3/ul} (Normal) Range: 0.83-4.51 [...] 4.2-5.4 WBC 5.4 K/mm3 (Normal) Range: 4.4-11.0 87-Dfp-808716:31 LIPID PANEL (98337) Comments: PATIENT WAS FASTINGPERFORMED BY: LabCoSpecialty Hospital at MonmouthEzeijf9034 [facility] [id number]; non-emergent till apt LDL/HDL Ratio 1.6 {ratio_units} [...] auto diff Comments: PATIENT WAS FASTINGPERFORMED BY: LabCoSpecialty Hospital at MonmouthYtqowk7141 [facility] [id number] Information: [id number] (83258) Immature Grans (Abs) 0.0 {x10E3/uL} (Normal) Range: [...] CREATININE RATIO Comments: PATIENT WAS FASTINGPERFORMED BY: [employer] Student Loan SolutionsSpecialty Hospital at MonmouthLftjmz7398 [facility] [id number] (44838) AND (35704) Microalb/Creat Ratio 93.7 {mg/g_creat} (Abnormal) Range: 0.0-30.0 Microalbumin, Urine 196.4 ug/mL (Abnormal) Range: 0.0-17.0 Creatinine, Urine 209.7 mg/dL (Normal) Range: 15.0-278.0 38-Gep-112673:31 METABOLIC PANEL, COMPREHENSIVE Comments: PATIENT WAS FASTINGPERFORMED BY: [employer]6370 [facility] [id number] (61067) ALT (SGPT) 20 [iU]/L (Normal) Range: 0-32 [...] Glucose, Serum 120 mg/dL (Abnormal) Range: 65-99 94-Rug-825318:31 Hemoglobin Glyclated (HGB A1C) Comments: PATIENT WAS FASTINGPERFORMED BY: [facility] Voexkr0874 [address] [facility] [id number] (42671) Hemoglobin A1c 7.6 % (Abnormal) Range: 4.8-5.6 Comments: . Pre-diabetes: 5.7 - 6.4 Diabetes: >6.4 Glycemic control for adults with diabetes: <7.0 23-Njw-590393:30 Urinalysis, Complete Comments: Order Date: 07/18/15How was Urine Obtained? CLEAN [facility] Gscxtkbbjv7317 [facility] [place], [address] MUCUS, URINE 0 SEEN {/hpf} [...] (Abnormal) CLARITY Clear (Normal) COLOR Yellow (Normal) 04-Ujm-731926:43 CBC W/Diff, Automated Comments: [facility] Nwohpltnaf1646 [facility] [place], [address] PATH REV May foll (Normal) [...] 4.2-5.4 WBC 15.1 K/mm3 (Abnormal) Range: 4.4-11.0 13-Qvr-810648:43 Comprehensive Metabolic Profil Comments: [facility] [address]em[address] [place], [place], [id number] GAP 8 (Normal) Range: 5-15 CO2 33.0 [...] 200 mg/dLsuggests DIABETES MELLITUS per A.D.A. criteria. [id number] Lactic Acid Comments: Comments: To be drawn 6H after initial [facility]WE[facility] [address] [place], [place], [phone] LACTIC ACID 1.7 mmol/L (Normal) Range: 0.4-2.0 [id number] Magnesium Comments: [facility] [address] [place], [address] MG 1.3 mg/dL (Abnormal) Range: 1.8-2.4 [id number] Partial Thromboplast Time Comments: [facility] [address] [place], [address] PTT 31.4 s (Normal) Range: 24.1-36.2 84-[id number]:43 Phosphorus Comments: [facility] [address] 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 Indication: Encounter for annual general [...] DF then follow up q 3 months [facility] Indication: Constipation Hypertensive heart disease without heart [...] mellitus type 2, insulin dependent Planned Observations LIPID PANEL ([id number])Indication: Hypercholesteremia On: 71-Lzl-025315:14 Request TSH (THYROID STIMULATING HORMONE) ([id number])Indication: Hypothyroid On: 31-Dsv-303395:14 Request METABOLIC PANEL, COMPREHENSIVE ([id number])Indication: Hypertensive heart disease without heart failure On: 51-Ezq-010179:14 Request CALCIFEDIOL ([id number])Indication: Hypertensive heart disease without heart failure On: :14 Request CBC & PLATELETS (AUTO) ([id number])Indication: Hypertensive heart disease without heart failure On: 27-Juj-978318:14 Request CBC, PLATELETS & AUT DIFF ([id number])Indication: Elevated WBC count On: :59 Request Cologuard - Strool Based DNA Test, CRC SCREEN ([id number])Indication: Encounter for screening for malignant neoplasm of colon (Renamed from Special screening for malignant neoplasms, colon) On: 62-Aad-717511:05 Request FECAL OCCULT- Tubes sent home ([id number])Indication: Encounter for screening for malignant neoplasm of colon (Renamed from Special screening for malignant neoplasms, colon) On: 18-Fdg-043969:09 Request Lipid Panel ([id number])Indication: Diabetes mellitus type 2, insulin dependent On: :08 Request Comments: around January Metabolic Panel, Comprehensive ([id number])Indication: Diabetes mellitus type 2, insulin dependent On: 68-Ebz-745716:08 Request Comments: around January CBC, Platelets & Auto Diff ([id number])Indication: Diabetes mellitus type 2, insulin dependent On: 08-Nsp-267635:08 Request Comments: around January TSH ([id number])Indication: Diabetes mellitus type 2, insulin dependent On: 05-Mhz-894968:08 Request Comments: around January Rapid Flu (33630 x 2)Indication: Unspecified Diagnosis On: :33 Request CBC & PLATELETS (AUTO) ([id number])Indication: Abdominal pain On: 0-Zae-620326:57 Request CULTURE, NOSE ([id number])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 On: :31 Request Comments: check for MRSA MRSA Culture ([id number])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 On: :23 Request Comments: rt axila HgA1C , Office ([id number])Indication: Diabetes mellitus type 2, insulin dependent On: 91-Kte-043449:21 Request Urinalysis, Office (86062)Indication: History of MRSA infection On: :42 Request Hemoglobin Glyclated (HGB A1C) ([id number])Indication: Diabetes mellitus type 2, uncontrolled On: 78-Rzn-637288:46 Request MICROALBUMIN: CREATININE RATIO ([id number]) AND ([id number])Indication: Hypertensive heart disease without heart failure On: 27-Gxb-023409:46 Request Planned Encounters Medical; 3 Month FU - On: 28-Oct-2018 13:45 [facility] Elsa Chopra CNP, CNP, Mary E Planned Procedures CHEST XRAY, PA & LATERAL ([id number])By: On: 29-Jul-2018 Intent Elsa Chopra CNP, CNP, Mary E Overnight Pulse OX ([id number])By: On: 30-Jun-2018 Intent Lee Ann Schafer DO SPIROMETRY PERFORMED ([id number])By: On: 25-Jun-2018 Intent Visit, Nurse SPIROMETRY PERFORMED ([id number])By: On: 25-Jun-2018 Intent Visit, Nurse SIX MINUTE WALK TEST ([id number])By: On: 25-Jun-2018 Intent Visit, Nurse Flu Vaccine (Quadrivalent) 90233Wt: On: 20-May-2018 Intent Karly Chandra DEXA SCAN AXIAL SKELETON ([id number])By: On: 18-Dec-2017 Intent Elsa Chopra CNP, CNP, Mary E SCREENING DIGITAL TOMOSYNTHESIS OF On: 18-Dec-2017 Intent BREAST ([id number])By: Elsa Chopra CNP, CNP, Mary E Flu Vaccine (Quadrivalent) 66664Oe: On: 11-Jun-2017 Intent Elsa Chopra CNP, CNP, Mary E Comments: InfluenzaLot #[id number]-L dltd, IMDose prefilled syringeVIS and ABN signedgiven by:GENARO blackwood PHYSICAL THERAPY TREATMENT On: 11-Dec-2016 Intent ([id number])By: Adelita Doshi LPN PHYSICAL THERAPY EVALUATION On: 11-Dec-2016 Intent ([id number])By: Elsa Chopra CNP, CNP, Mary E Toradol Injection, 30 mg On: 10-Dec-2016 Intent ([id number])By: Elsa Chopra CNP, CNP, Mary E Radiology - Hip - RightBy: Nav On: 10-Dec-2016 Intent Elsa MCKINLEY CNP, Mary E Aerosol Treatment ([id number])By: Tico On: 16-Oct-2016 Intent Adelita LAM Flu Vaccine (Quadrivalent) [id number]: On: 11-Jul-2016 Intent Elsa Chopra CNP, CNP, Mary E Comments: FLUlot: [id number]:01/16site:Lt deltoidroute:IMdose:.5mlBHAVNA SHAW Ultrasound - Abdomen CompleteBy: On: 03-Jul-2016 Intent Elsa Chopra CNP, CNP, Mary E Radiology - KUBBy: Elsa Chopra CNP On: 03-Jul-2016 Intent Elsa العلي CNP DRAIN/INJECT SMALL JOINT OR BURSA On: 18-May-2016 Intent ()By: Elsa Chopra CNP Comments: to left wrist joint 1/2 cc kenalog, 1/2 cc marcaine. Kenalog lot #[id number] exp Marcain lot [id number] ex Elsa MCKINLEY MAMMOGRAM, SCREENING, BOTH BREAST On: 11-May-2016 Intent ([id number])By: Elsa Chopra CNP, CNP, Mary E Radiology [...] mellitus without complication) : DISCONTINUED - URINALYSIS ([id number]) Indication: Diabetes mellitus type II, controlled, with no complications (Renamed from Controlled type 2 diabetes mellitus without complication) CKD (chronic kidney disease), stage III : DISCONTINUED - MICROALBUMIN: CREATININE RATIO ([id number]) AND (80287) Indication: CKD (chronic kidney disease), stage III Diabetes mellitus type II, controlled, with no complications (Renamed from Controlled type 2 diabetes mellitus without complication) : DISCONTINUED - CBC, PLATELETS & AUT DIFF ([id number]) Indication: Diabetes mellitus type II, controlled, with no complications (Renamed from Controlled type 2 diabetes mellitus without complication) Diabetes mellitus type II, controlled, with no complications (Renamed from Controlled type 2 diabetes mellitus without complication) : DISCONTINUED - METABOLIC PANEL, COMPREHENSIVE ([id number]) Indication: Diabetes mellitus type II, controlled, with no complications (Renamed from Controlled type 2 diabetes mellitus without complication) Diabetes mellitus type II, controlled, with no complications (Renamed from Controlled type 2 diabetes mellitus without complication) : DISCONTINUED - TSH ([id number]) Indication: Diabetes mellitus type II, controlled, with [...] dependent : DISCONTINUED - METABOLIC PANEL, BASIC ([id number]) Indication: Diabetes mellitus type 2, insulin dependent [...] 2, insulin dependent Encounters Lab Order On: 13-Aug-2018 16:11 Encounter Diagnosis: Hypothyroid, Hypercholesteremia, Hypertensive heart disease without heart failure End: 13-Aug-2018 16:14 [facility] Lab Order On: 04-Aug-2018 7:57 Encounter Diagnosis: [...] patient does not have durable power of watch crystal grinder or living will. The patient has noticed getting bored, poor spirits most of time and lack of energy. Other providers contributing to the lyndsey bolton's care are dam tender assistant () and urologist (). Note for Annual [...] sleeping poorly. Patient has been com End: 18-Sep-2017 13:50 pliant with instructions. Current [...] 13:50 [facility] Office Visit On: 16-Sep-2016 11:10 Encounter Reason: Wrist Pain - This [...] Reason for ER visit: note: (surgery [facility]. ). The patient feels well with minor [...] MRSA. She has had pre-op testing at [facility] on 10-14-2015, for Lumbar microdecompression for 10-24-[address] work[address] Fire Coordinator Dr. Dahl for papers to be signed [...] 19-Jul-2015 22:21 - sharp pain- went to [facility] ER). Current medication use: no [...] surgeon- - recently went to er at [place] on jul 14 - she was having [...]
--- OUTSIDE RECORDS SUMMARY | 2018-09-25 14:46 | XMS RPT_ITS | Continuity of Care Document ---
:1950 Author Organization [facility] Address [address] [facility] [address] [place] [address] Phone Care Team Providers Name Role Phone Nav ARLENElsa Unavailable Malcolm STANLEY, Casey Florian Unavailable Linden DO , Dr. Aaron Diaz Unavailable John BatistaAnnalisa Unavailable Dr. Abimael Ag Unavailable Kirby STANLEY, Jared Galeano Unavailable Pascale Boston Unavailable Slarb MACHINE OPERATOR GENERAL, Adelita Unavailable Unavailable Karly Chandra Unavailable Unavailable Long MACHINE OPERATOR GENERAL, Dora L Unavailable Unavailable Trina Sorenson Unavailable Unavailable Unavailable [...] 585.3) Comments: follows with Dr. Munguia in [place], seen for sarcoidosis currently, stableGFR 40 Status: [...] on wean of steroid Scale 201-250. 5 somao291-006 8 dagfz067-205 10 -831 12 units>401 15 unitsad ding metformin not [...] given in L arm subcutaneously paitent tolerated wellLOT#[id number]#2019NOV 06 Status: Active Postmenopausal (Renamed from Postmenopausal status) (Z78.0, V49.81) Status: Active Pregnancies () Comments: 1. 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) Comments: Sees Ciara at [facility] for sarcoid in bone marrow [...] Quantity: 30 {Tablet} Refills: 3 Ordered:11-May-2016 Slarb MACHINE OPERATOR GENERALAdelita Start : 08-May-2016 Active AmLODIPine Besylate 5 [...] Quantity: 60 {Tablet} Refills: 0 Ordered:07-Jul-2018 Nav ROLLOFF TRUCK DRIVER, Elsa Reyes CNP, Elsa Luke Start : 07-Jul-2018 Active Comments:Oarrmackenzie rundx F41.9#60thirty days Melatonin 1 MG Oral Tablet 3 (three) Tablet qhs for 0 days Quantity: 60 {Tablet} Refills: 0 Ordered:12-Mar-2016 Nav ROLLOFF TRUCK DRIVER, Elsa Reyes ROLLOFF TRUCK DRIVER, Elsa Luke Start : 12-Mar-2016 Active MetFORMIN [...] A Start : 18-Jul-2015 Active VITAMIN D3, 32976TGPZ (Oral Capsule) 1 (one) Capsule Capsule once [...] Quantity: 15 {Tablet} Refills: 0 Ordered:24-Jun-2018 Nav ROLLOFF TRUCK DRIVER, Elsa Reyes ROLLOFF TRUCK DRIVER, Onelia Start : 24-Jun-2018 End : 24-Jul-2018 [...] Quantity: 15 {Tablet} Refills: 0 Ordered:21-Oct-2015 Nav ROLLOFF TRUCK DRIVER, Elsa Reyes CNP, Onelia Start : 21-Oct-2015 [...] Ordered:18-Jan-2018 Nav MCKINLEY, Elsa Reyes CNP, Elsa Lkue Start : 18-Dec-2017 End : 17-Jan-2018 Inactive [...] Quantity: 1 {Vial} Refills: 6 Ordered:07-Feb-2016 Nav ROLLOFF TRUCK DRIVER, Elsa MICHAELelba ROLLOFF TRUCK DRIVER, Onelia Start : 03-Oct-2015 End : 07-Feb-2016 Discontinued LEVEMIR, 100UNIT/ML (Subcutaneous Solution) 20 Solution units each morning for 30 days Quantity: 1 {Vial} Refills: 6 Ordered:20-Jan-2016 Adelita Doshi LPN Start : 21-Oct-2015 End : 20-Jan-2016 Discontinued MACROBID, 100MG (Oral Capsule) q12hrs (100 MG) End : 05-Aug-2015 Discontinued Comments:[facility] MUPIROCIN, 2% (External Ointment) 1 (one) Ointment [...] : 05-Aug-2015 Discontinued Comments:1,250mg IV q24hrs x 75pgur4,500mg IV q24hrs #14 Allergies and Adverse Reactions [...] Comments: was seeing Dr. Munguia's partner in [place] Dr. Morel, gfr 43%, has proteinuria Status: [...] Visit Report Result: Comments: See Note; NOTES: [facility] [place] 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 Atherosclerosis of belk[place]ski coronary artery of belkofski heart without angina pectoris I25.10 Mild Plan [...] for an outpatient visit in [facility] 9 months unless needed sooner. Thank you [...] Off vis,est,leve l 4 Diagnoses Atherosclerosis of belkofski coronary artery of belkofski heart without angina pectoris I25.10 [place] vs. transplanted heart: belkofski heart Paroxysmal atrial fibrillation I48.0 Hyperlipidemia, u nspecified hyperlipidemia type E78.5 Hyperlipidemia type: unspecified Essential hypertension I10 Hypertension type: essential hypertension Long-term use of high-risk medication Z79.899 Coding Level of Care Code Off vis,est,level 4 Diagnoses Atherosclerosis of belkofski coronary artery of belk[place]ski heart without angina pectoris I25.10 [place] vs. transplanted heart: belkofski heart Paroxysmal atrial fibrillat ion I48.0 Hyperlipidemia, unspecified hyperlipidemia type E78.5 Hyperlipidemia type: unspecified Essential hypertension I10 Hypertension type: essential hypertension Long-term use of high-risk medicatio n Z79.899 02/17/18 1530 <Electronically signed by Casey Fowler MD> Date Casey Fowler MD Cosigner Signature: Date _ (if applicable) CC: Elsa Chopra NP 14-Feb-2018 SCREENING MAMM (CAD), BILAT Result: Comments: See Note; NOTES: [facility] Imaging Services [address] [place] [address] SCREENING MAMM (CAD), BILAT MR#: [id number] Acct: [id number] Name: SHREYAS KATHLEEN Rep #: [id number] : 1950 F 67 From: Elias Finn MD PCP: Elsa Chopra NP Status: REG CLI Study: SCREENING MAMM (CAD), BILAT Date of Exam: 02/14/18 Exam# [id number] Ordering Dr: Elsa Chopra MAMMO GRAPHY - [...] these results will be sent to the [facility] nt by the facility within 30 days. Approximately 10% of breast cancers are not detected by mammography. A normal mammogram should not delay biopsy of a clinically suspicious abnormality. [id number] Elect ronically Signed: Elias Finn MD at 8:30 EDT Tel [phone], Service support , CC: Elsa Chopra NP Fireman Helper: Signed 21-Jan-2018 Dexa Bone Density Study Result: Comments: See Note; NOTES: [facility] Imaging Services [address] [place] [address] Dexa Bone Density Study MR#: [id number] Acct: [id number] Name: SHREYAS KATHLEEN Rep #: [id number] : 1950 F 67 From: Elias Finn MD PCP: Elsa Chopra NP Status: REG CLI Study: Dexa Bone Density Study Date of Exam: 01/21/18 Exam# [id number] Ordering Dr: Elsa Chopra STUDY: DUAL E [...] Elias Finn MD at 15:36 EDT Tel [phone], Service support , CC: Elsa Chopra HALL MANAGER Fireman Helper: Signed 10-Dec-2016 Hip 2-3 Views with Pelvis Result: Comments: See Note; NOTES: [facility] Imaging Services [address] [place] [address] Verdana 4d Hip 2-3 Views with Pelvis MR#: [id number] Acct: [id number] Name: SHREYAS KATHLEEN Rep #: [id number] : 1950 F 66 From: Herve Jimenez MD PCP: Elsa Chopra Status: REG CLI Study: Hip 2-3 Views with Pelvis Date of Exam: 12/10/16 Exam# [id number] Ordering Dr: Elsa Chopra STUDY : X-RAY [...] FACR at 11:31 EDT , Service support [phone], CC: Elsa Chopra Fireman Helper: Signed 05-Jul-2016 Abdomen Complete Result: Comments: See Note; NOTES: [facility] Imaging Services [address] [place] [address] Oscar 4d Abdomen Complete MR#: [id number] Acct: [id number] Name: SHREYAS KATHLEEN Rep #: [id number] : 1950 F 66 From: Elias Finn MD PCP: Elsa Chopra Status: REG CLI Study: Abdomen Complete Date of Exam: 07/05/16 Exam# [id number] Ordering Dr: Elsa Chopra STUDY: ABDOMINAL ULTRASOUND [...] Elias Finn MD at 9:35 EDT Tel [phone], Service support [phone], CC: Elsa Chopra Fireman Helper: Signed 05-Jul-2016 Abdomen Single View Result: Comments: See Note; NOTES: [facility] Imaging Services [address] [place] [address] Verdana 4d Abdomen Single View MR#: [id number] Acct: [id number] Name: SHREYAS KATHLEEN Rep #: [id number] : 1950 F 66 From: Elias Finn MD PCP: Elsa Chopra Status: REG CLI Study: Abdomen Single View Date of Exam: 07/05/16 Exam# [id number] Ordering Dr: Elsa Chopra STUDY: X-RA Y [...] of the L1 vertebrae. ORDER # : [id number] RAD/Abdomen Single View IMPRESSION: Moderate amount of fecal material is seen in the colon. Electronically Signed: Elias Finn MD at 10:34 EDT Tel [phone], Service sup port [phone], CC: Elsa Chopra Fireman Helper: Signed 18-May-2016 Bilat Scrn Digital AND CAD Result: Comments: See Note; NOTES: [facility] Imaging Services [address] [place] [address] Verdana 4d Bilat Scrn Digital AND CAD MR#: [id number] Acct: [id number] Name: JACINTO KATHLEEN Rep #: [id number] : 1950 F 65 From: Elias Finn MD PCP: Elsa Chopra Status: REG CLI Study: Bilat Scrn Digital AND CAD Date of Exam: 05/18/16 Exam# [id number] Ordering Dr: Elsa Chopra MAMMOGRAPHY - BILATERAL [...] biopsy of a clinically suspicious abnor mality. [id number] Electronically Signed: Elias Finn MD at 12:53 EDT Tel [phone], Service support [phone], CC: Elsa Chopra Fireman Helper: Signed 14-Feb-2016 Shoulder min 2 Views Result: Comments: See Note; NOTES: [facility] Imaging Services [address] [place] [address] Verdana 4d Shoulder min 2 Views MR#: [id number] Acct: [id number] Name: SHREYAS KATHLEEN Rep #: [id number] : 1950 F 65 From: Herve Jimenez MD PCP: Madeline Florez DO Status: REG CLI Study: Shoulder min 2 Views Date of Exam: 02/14/16 Exam# [id number] Ordering Dr: Pascale Boston DO STUDY: X-RAY [...] FACR at 14:50 EDT , Service support [phone], Fax RAD/Shoulder min 2 Views IMPRESSION: Bilateral of the acromioclavicular joint, otherwise normal x-ray examination of the shoulder. Electronically Signed: Herve Jimenez MD, FACR at 14:50 EDT , Service support [phone], CC: Pascale Boston DO; Madeline Florez DO Fireman Helper: Signed 21-Oct-2015 Spirometry (59260) Comments: mod restriction Result: 19-Sep-2015 Chest PA and Lateral Result: Comments: See Note; NOTES: [facility] Imaging Services [address] [place] [address] Verdana 4d Chest PA and Lateral MR#: [id number] Acct: [id number] Name: SHREYAS KATHLEEN Rep #: [id number] : 1950 F 65 From: Elias Finn MD PCP: Madeline Florez DO Status: REG CLI Study: Chest PA and Lateral Date of Exam: 09/19/15 Exam# [id number] Ordering Dr: Madeline Florez DO STUDY: X-RAY [...] Elias Finn MD at 13:58 EST Tel [phone], Service support [phone], RAD/Chest PA and Lateral IMPRESSION: Stable examination. No acute abnormality is seen. Electronically Doris d: Elias Finn MD at 13:58 EST Tel [phone], Service support [phone], CC: Madeline Florez DO Fireman Helper: Signed 25-Aug-2015 Spine Lumbar (Routine) Result: Comments: See Note; NOTES: [facility] Imaging Services [address] [place] [address] Verdana 4d Spine Lumbar (Routine) MR#: [id number] Acct: [id number] Name: SHREYAS MAJOR Rep #: [id number] : 1950 F 65 From: Herve Jimenez MD PCP: Madeline Florez DO Status: REG CLI Study: Spine Lumbar (Routine) Date of Exam: 08/25/15 Exam# [id number] Ordering Dr: ELIZABETH DE LEON M.D. STUDY: [...] FACR at 17:43 EST , Service support [phone], CC: ELIZABETH DE LEON M.D.; Madeline Florez DO Fireman Helper: Signed 25-Aug-2015 Spine Thoracic (Routine) Result: Comments: See Note; NOTES: [facility] Imaging Services [address] [place] [address] Verdana 4d Spine Thoracic (Routine) MR#: [id number] Acct: [id number] Name: SHREYAS SHARIF Rep #: [id number] : 1950 F 65 From: Herve Jimenez MD PCP: Madeline Florez DO Status: REG CLI Study: Spine Thoracic (Routine) Date of Exam: 08/25/15 Exam# [id number] Ordering Dr: ELIZABETH RUIZ M.D. STUDY: MRI [...] FACR at 17:45 EST , Service support [phone], CC: ELIZABETH DE LEON M.D.; Komal Florez DO Fireman Helper: Signed 17-Aug-2015 Chest PA and Lateral Result: Comments: See Note; NOTES: [facility] Imaging Services [address] [place] [address] [place] [address] 4d Chest PA and Lateral MR#: [id number] Acct: [id number] Name: SHREYAS KATHLEEN Keira Rep #: [id number] : 1950 F 65 From: Elias Finn MD PCP: Madeline Florez DO Status: REG CLI Study: Chest PA and Lateral Date of Exam: 08/17/15 Exam# [id number] Ordering Dr: Madeline Florez DO STUDY: X-RAY [...] Elias Finn MD at 11:09 EST Tel [phone], Service support [phone], Fax RAD/Chest PA and Lateral IMPRESSION: Residual changes persist in the right middle lobe and there has been some improvement. Further followup is recommended. Electr onically Signed: Elias Finn MD at 11:09 EST Tel [phone], Service support [phone], CC: Madeline Florez DO Fireman Helper: Signed 12-Aug-2015 Discharge Instruction Result: Comments: See Note; NOTES: [facility] Medical Records Department [address] [place] [address] Discharge Instruction 08/10/15 1702 MR#: [id number] Acct: [id number] Name: SHREYAS KATHLEEN Rep #: [id number] : 1950 65 From: Denny Bone MD [...] problems, contact your doctor. Call [facility] ([phone]) or report to the closest Emergency Room. Call 911 if necessary. 08/12/15 1502 <Elect ronically signed by Denny Bone MD> Date Denny Bone MD Cosigner Signature (If Indicated): Date CC: Madeline Florez DO 12-Aug-2015 Emergency Department Summary Result: Comments: See Note; NOTES: [facility] Medical Records Department [address] [place] [address] Emergency Department Summary MR#: [id number] Acct: [id number] Name: SHREYAS KATHLEEN Rep #: [id number] : 1950 65 From: Denny Bone MD PCP: Madeline Florez DO Status: [facility] DATE OF SERVICE: 08/10/2015 METHOD OF [...] C: Madeline Bonilla MD T: NTS JOB: [id number] 08/12/15 1502 <Electronically signed by Denny Bone MD> Date Denny Bone MD Cosigner Signature (If Indicated): Date ___ CC: Madeline Florez DO; Katelyn Arenas MD Date Dictated: 08/10/151708 Date Transcribed: 08/10/151708 Fireman Helper: Signed Social History Name Dates Details No Caffeine Use Status: Active No Drug Use Status: Active Non Drinker/No Alcohol Use Status: Active Tobacco use: Never smoker. Status: Active Smoking Status Name Dates Details Never smoker Vital Signs Date Test Result Details 75-Poq-603849:25 Temperature 98 f Comments: Method: Temporal Pulse [...] kg/m2 Body Surface Area Calculated 1.83 m2 36-Wot-593981:48 Pulse 107 /min Comments: Pattern: Regular Respiration [...] unknown, given order todayLast vision screen 2014 [employer] Liu Temperature 98.3 f Pulse 75 /min [...] Size: Large Results Date Description Value Details :49 PARATHORMONE (84714) Comments: PATIENT NOT FASTINGPERFORMED BY: [facility] SystemAwtvfi7387 [facility] [id number] PTH, Intact 45 pg/mL (Normal) Range: 15-65 :49 CBC, Platelets & Auto Diff Comments: PATIENT NOT FASTINGPERFORMED BY: [facility] SystemMralkr6060 [facility] [id number] (46935) Immature Grans (Abs) 0.0 {x10E3/uL} (Normal) Range: [...] 3.77-5.28 WBC 11.4 {x10E3/uL} (Abnormal) Range: 3.4-10.8 72-Ymw-950359:49 Metabolic Panel, Comprehensive Comments: PATIENT NOT FASTINGPERFORMED BY: LabCoMin[facility]' [facility] CenterJayjfy8603 [facility] [id number] ([id number]) ALT (SGPT) 9 [iU]/L (Normal) Range: 0-32 [...] 8-27 Glucose 136 mg/dL (Abnormal) Range: 65-99 14-Nod-447754:26 HgA1C , Office (91010) HgA1C , Office 6.4 % (Normal) Range: 4.6 - 7.1 23-Etu-834671:26 Blood Glucose , Office (16509) Blood Glucose , Office 163 (Normal) 43-Olv-89980:00 MICROALBUMIN: CREATININE RATIO Comments: Jun 19; PATIENT WAS FASTINGPERFORMED BY: [facility] Dbheas6259 [facility] [id number] (80098) AND (81727) Alb/Creat Ratio 266.9 {mg/g_creat} (Abnormal) Range: 0.0-30.0 Albumin, Urine 168.7 ug/mL (Normal) Creatinine, Urine 63.2 mg/dL (Normal) 13-Nrl-68410:00 Metabolic Panel, Comprehensive Comments: Jun 19; PATIENT WAS FASTINGPERFORMED BY: [facility] SystemRgbsqk7143 [facility] [id number] (09491) ALT (SGPT) 14 [iU]/L (Normal) Range: 0-32 [...] 8-27 Glucose 121 mg/dL (Abnormal) Range: 65-99 89-Mtc-27391:00 HGB A1C (61833) Comments: June 19; PATIENT WAS FASTINGPERFORMED BY: [facility] Ugbtqv3116 [facility] [id number] Hemoglobin A1c 7.0 % (Abnormal) Range: 4.8-5.6 Comments: . Prediabetes: 5.7 - 6.4 Diabetes: >6.4 Glycemic control for adults with diabetes: <7.0 70-Ajh-071779:33 ALKALINE PHOSPHATASE-ISOENZYM Comments: PATIENT NOT FASTINGPERFORMED BY: [facility]6370 [facility] [id number] (40893) Intestinal Frac.: 0 % (Normal) Range: 0-18 Bone Fraction: 27 % (Normal) Range: 14-68 Liver Fraction: 73 % (Normal) Range: 18-85 Alkaline Phosphatase 89 [iU]/L (Normal) Range: 39-117 72-Lcc-092791:33 CBC, Platelets & Auto Diff Comments: PATIENT NOT FASTINGPERFORMED BY: [facility] Apkbth1672 [facility] [id number] (27937) Immature Grans (Abs) 0.0 {x10E3/uL} (Normal) Range: [...] 3.77-5.28 WBC 5.9 {x10E3/uL} (Normal) Range: 3.4-10.8 37-Glc-641306:22 HgA1C , Office (79868) Comments: 7.3 HgA1C , Office 7.3 % (Abnormal) Range: 4.6 - 7.1 45-Hcp-432847:22 Blood Glucose , Office (13229) Blood Glucose , Office 173 (Normal) :40 Basic Metabolic Profile (BMP) Comments: SEND RESULTS OF BMP TO .[facility] [address] [place], [place], [id number] GAP 11 (Normal) Range: 5-15 CO2 27.0 [...] A.D.A. criteria.Please note revised GLUCOSE reference range xlmujvxin34/02/2018. :40 Liver Profile Comments: SEND RESULTS OF BMP TO .[facility] [address]af[address]qverp[address] [place], [place], [id number] D BILI 0.09 mg/dL (Normal) Range: 0.00-0.30 T BILI 0.40 mg/dL (Normal) Range: 0.20-1.00 ALT 22 U/L (Normal) Range: 13-56 ALK P 103 U/L (Normal) Range: 45-117 AST 17 U/L (Normal) Range: 15-37 GLOB 4.0 g/dL (Normal) Range: 2.2-4.2 ALB 3.8 g/dL (Normal) Range: 3.2-5.0 T PROT 7.8 g/dL (Normal) Range: 6.4-8.2 84-Ryl-340216:41 CALCIFEDIOL (45295) Comments: PATIENT WAS FASTINGPERFORMED BY: Dr. TATTOFFAcuteCare Health SystemNsfmwf7507 [facility] [id number] Vitamin D, 25-Hydroxy 44.2 ng/mL (Normal) Range: 30.0-100.0 Comments: Vitamin D deficiency has been defined by the [place] ofMedicine and an Endocrine Society practice guideline as alevel of serum 25-OH vitamin D less than 20 ng/mL (1,2).The Endocrine Society went on to further define vitamin Dinsufficiency as a level between 21 and 29 ng/mL (2).1. IOM ([place] of Medicine). 2010. Dietary reference intakes for calcium and D. [place]: The National Academies Press.2. Jacinto MF, Eddy NC, Quintin JAVED, et al. Evaluation, treatment, and prevention of vitamin D deficiency: an Endocrine Society clinical practice guideline. JCEM. 2010; 96(7):1911-30. 83-Awn-754769:41 METABOLIC PANEL, Comments: PATIENT WAS FASTINGPERFORMED BY: [facility]6370 [facility] [id number] Information: 757495,V17412; OV 03/19 COMPREHENSIVE (23444) ALT (SGPT) 15 [iU]/L (Normal) Range: 0-32 [...] 8-27 Glucose 143 mg/dL (Abnormal) Range: 65-99 88-Zdc-476367:31 Blood Glucose , Office (92517) Blood Glucose , Office 211 (Normal) 12-Evk-694139:31 HgA1C , Office (42969) HgA1C , Office 6.8 % (Normal) Range: 4.6 - 7.1 37-Dim-813343:33 CBC, Platelets & Auto Diff Comments: PATIENT WAS FASTINGPERFORMED BY: [facility] Xlqyxx9066 [facility] [id number] (82679) Immature Grans (Abs) 0.0 {x10E3/uL} (Normal) Range: [...] 3.77-5.28 WBC 7.7 {x10E3/uL} (Normal) Range: 3.4-10.8 43-Mtk-374626:33 Lipid Panel (73934) Comments: PATIENT WAS FASTINGPERFORMED BY: [facility] [id number] LDL/HDL Ratio 0.9 {ratio} (Normal) Range: 0.0-3.2 Comments: LDL/HDL Ratio Men Women 1/2 Avg.Risk 1.0 1.5 Av g.Risk 3.6 3.2 2X Avg.Risk 6.2 5.0 3X Avg.Risk 8.0 6.1 LDL Cholesterol Calc 35 mg/dL (Normal) Range: 0-99 VLDL Cholesterol Kiesha 53 mg/dL (Abnormal) Range: 5-40 HDL Cholesterol 41 mg/dL (Normal) Triglycerides 264 mg/dL (Abnormal) Range: 0-149 Cholesterol, Total 129 mg/dL (Normal) Range: 100-199 02-Efx-706322:33 Metabolic Panel, Comprehensive Comments: PATIENT WAS FASTINGPERFORMED BY: thredUPCape Fear/Harnett [facility] [id number] (22218) ALT (SGPT) 18 [iU]/L (Normal) Range: 0-32 [...] 8-27 Glucose 150 mg/dL (Abnormal) Range: 65-99 60-Azh-692962:33 MICROALBUMIN: CREATININE RATIO Comments: PATIENT WAS FASTINGPERFORMED BY: [employer]6370 [facility] [id number] (91618) AND (88236) Alb/Creat Ratio 225.5 {mg/g_creat} (Abnormal) Range: 0.0-30.0 Albumin, Urine 112.5 ug/mL (Normal) Creatinine, Urine 49.9 mg/dL (Normal) 95-Cjw-106899:33 URINALYSIS (40324) Comments: PATIENT WAS FASTINGPERFORMED BY: [employer]70 [facility] [id number] Microscopic Examination See below: (Normal) Comments: Microscopic was indicated and was performed. Nitrite, Urine Negative (Normal) Urobilinogen,Semi-Qn 0.2 mg/dL (Normal) Range: 0.2-1.0 Bilirubin Negative (Normal) Occult Blood Negative (Normal) Ketones Negative (Normal) Glucose Negative (Normal) Protein Trace (Normal) WBC Esterase 2+ (Abnormal) Appearance Clear (Normal) Urine-Color Yellow (Normal) pH 6.5 (Normal) Range: 5.0-7.5 Specific [place] 1.014 (Normal) Range: 1.005-1.030 06-Tht-462220:33 TSH (27396) Comments: PATIENT WAS FASTINGPERFORMED BY: Dr. TATTOFFAcuteCare Health SystemRvenrh2217 [facility] [id number] TSH 3.870 {uIU/mL} (Normal) Range: 0.450-4.500 21-Rhz-835495:33 Microscopic Examination Comments: PATIENT WAS FASTINGPERFORMED BY: [facility]6370 [facility] [id number] Bacteria Few (Normal) Mucus Threads Present (Normal) Cast Type Hyaline casts (Normal) Casts Present {/lpf} (Abnormal) Epithelial Cells (non renal) >10 {/hpf} (Abnormal) Range: 0 - 10 RBC 0-2 {/hpf} (Normal) Range: 0 - 2 WBC 11-30 {/hpf} (Abnormal) Range: 0 - 5 36-Pqs-669629:57 HgA1C , Office (29637) Comments: 6.6 HgA1C , Office 6.6 % (Normal) Range: 4.6 - 7.1 74-Sim-618583:57 Blood Glucose , Office (41240) Blood Glucose , Office 211 (Normal) 02-Ckn-264521:53 HEPATIC FUNCTION PANEL Comments: PATIENT NOT FASTINGPERFORMED BY: [facility]6370 [facility] [id number] (33816) ALT (SGPT) 13 [iU]/L (Normal) Range: 0-32 AST (SGOT) 17 [iU]/L (Normal) Range: 0-40 Alkaline Phosphatase, S 89 [iU]/L (Normal) Range: 39-117 Bilirubin, Direct 0.08 mg/dL (Normal) Range: 0.00-0.40 Bilirubin, Total <0.2 mg/dL (Normal) Range: 0.0-1.2 Albumin, Serum 4.2 g/dL (Normal) Range: 3.6-4.8 Protein, Total, Serum 6.8 g/dL (Normal) Range: 6.0-8.5 :53 AOIPW-AFNHUVTOQIB-FNKBT (89636) Comments: PATIENT NOT FASTINGPERFORMED BY: CB [facility] Nfekff8899 [address] RoadDublin [place] [id number] AFP, Serum, Tumor Marker 2.6 ng/mL (Normal) Range: 0.0-8.3 Comments: Rosmery ECLIA methodology :53 ALKALINE PHOSPHATASE-ISOENZYM Comments: PATIENT NOT FASTINGPERFORMED BY: CB [facility] Mujqqk8611 [address] RoadDublin [place] [id number] (98641) Intestinal Frac.: 5 % (Normal) Range: 0-18 Bone Fraction: 24 % (Normal) Range: 14-68 Liver Fraction: 71 % (Normal) Range: 18-85 :11 ALKALINE PHOSPHATASE-ISOENZYM Comments: PATIENT NOT FASTINGPERFORMED BY: CB [facility] Jyqpok0182 [address] [place] [id number] (61522) Intestinal Frac.: 3 % (Normal) Range: 0-18 Bone Fraction: 19 % (Normal) Range: 14-68 Liver Fraction: 78 % (Normal) Range: 18-85 Alkaline Phosphatase, S 122 [iU]/L (Abnormal) Range: 39-117 :11 CALCIFEDIOL (61766) Comments: PATIENT NOT FASTINGPERFORMED BY: CB [facility] Agtccc7092 [address] Road[address]ublin [place] [id number] Vitamin D, 25-Hydroxy 37.5 ng/mL (Normal) Range: 30.0-100.0 Comments: Vitamin D deficiency has been defined by the [place] ofMedicine and an Endocrine Society practice guideline as alevel of serum 25-OH vitamin D less than 20 ng/mL (1,2).The Endocrine Society went on to further define vitamin Dinsufficiency as a level between 21 and 29 ng/mL (2).1. IOM ([place] of Medicine). 2010. Dietary reference intakes for calcium and D. [place]: The National Academies Press.2. Jacinto MF, Eddy NC, Quintin JAVED, et al. Evaluation, treatment, and prevention of vitamin D deficiency: an Endocrine Society clinical practice guideline. JCEM. 2010; 96(7):1911-30. :11 TSH (17149) Comments: PATIENT NOT FASTINGPERFORMED BY: [facility] Zmmmsb7703 [facility] [id number] TSH 1.620 {uIU/mL} (Normal) Range: 0.450-4.500 :11 T4, FREE (THYROXINE) (06287) Comments: PATIENT NOT FASTINGPERFORMED BY: [facility] Oodyrl0566 [facility] [id number] T4,Free(Direct) 1.00 ng/dL (Normal) Range: 0.82-1.77 :11 T3, FREE (TRIDOTHYRONINE) (74169) Comments: PATIENT NOT FASTINGPERFORMED BY: LabCoAcuteCare Health SystemAxitmf1854 [facility] [id number] Triiodothyronine,Free,Serum 2.5 pg/mL (Normal) Range: 2.0-4.4 :08 HgA1C , Office (28798) HgA1C , Office 7.4 % (Abnormal) Range: 4.6 - 7.1 :08 Blood Glucose , Office (87714) Blood Glucose , Office 190 (Normal) 6-Puu-147150:30 Lipid Profile Comments: Order Date: 12/12/16Order Info: 0788-1 - *Hepatic Function PanelOrder Info: [id number] - *Lipid Profile CC PCPComments: 12 hours fasting, may have water.Comments: 6 months / pre next [facility]WP[facility] Ynadxnflya[address] [place], [address] VLDL 46 mg/dL (Abnormal) Range: 5-40 LDL [...] 200-240 mg/dL Borderline >240 mg/dL High Risk 7-Zle-032439:30 Liver Profile Comments: Order Date: 12/12/16Order Info: [id number] - *Hepatic Function PanelOrder Info: [id number] - *Lipid Profile CC PCPComments: 12 hours fasting, may have water.Comments: 6 months / pre next visitWParkview Health Lmgokfidhb67[address] [place], [place], [address] D BILI 0.11 mg/dL (Normal) Range: 0.00-0.30 [...] of Apr 09; PATIENT NOT FASTINGPERFORMED BY: Milyoni [facility]CoPo[employer] [facility] MedicinePicPrizesECU Health North Hospital [id number] HORMONE) (82531) TSH 0.728 {uIU/mL} (Normal) Range: 0.450-4.500 :55 HgA1C , Office (84954) HgA1C , Office 6.9 % (Normal) Range: 4.6 - 7.1 :55 Blood Glucose , Office (74311) Blood Glucose , Office 143 (Normal) 47-Flf-296655:11 Microscopic Examination Comments: PATIENT WAS FASTINGPERFORMED BY: Milyoni [facility]Co[employer] [facility] [id number] Bacteria Few (Normal) Mucus Threads Present (Normal) Cast Type Hyaline casts (Normal) Casts Present {/lpf} (Abnormal) Epithelial Cells (non renal) 0-10 {/hpf} (Normal) Range: 0 - 10 RBC 0-2 {/hpf} (Normal) Range: 0 - 2 WBC 6-10 {/hpf} (Abnormal) Range: 0 - 5 19-Btf-602096:11 URINALYSIS, W/ MICRO (57593) Comments: January 2017; PATIENT WAS FASTINGPERFORMED BY: KinveyECU Health North Hospital [id number] Microscopic Examination See below: (Normal) Comments: Microscopic was indicated and was performed. Nitrite, Urine Negative (Normal) Urobilinogen,Semi-Qn 0.2 mg/dL (Normal) Range: 0.2-1.0 Bilirubin Negative (Normal) Occult Blood Negative (Normal) Ketones Negative (Normal) Glucose Trace (Abnormal) Protein 1+ (Abnormal) WBC Esterase 1+ (Abnormal) Appearance Clear (Normal) Urine-Color Yellow (Normal) pH 6.5 (Normal) Range: 5.0-7.5 Specific [place] 1.016 (Normal) Range: 1.005-1.030 16-Kma-595703:11 MICROALBUMIN: CREATININE RATIO Comments: January 2017; PATIENT WAS FASTINGPERFORMED BY: [facility]veyECU [facility] Hospital [id number] (15054) AND (99348) Microalb/Creat Ratio 208.2 {mg/g_creat} (Abnormal) Range: 0.0-30.0 Microalbumin, Urine 182.2 ug/mL (Normal) Creatinine, Urine 87.5 mg/dL (Normal) 59-Ifw-539997:11 CBC, Platelets & Auto Diff Comments: January 2017; PATIENT WAS FASTINGPERFORMED BY: Hot Hotels70 [facility]vedereECU Health [facility] Hospital [id number] (86447) Immature Grans (Abs) 0.0 {x10E3/uL} (Normal) Range: [...] 3.77-5.28 WBC 5.6 {x10E3/uL} (Normal) Range: 3.4-10.8 63-Igt-127313:11 Metabolic Panel, Comprehensive Comments: January 2017; PATIENT WAS FASTINGPERFORMED BY: LabCoAcuteCare Health SystemRouikv7526 [facility] [id number] (85239) ALT (SGPT) 13 [iU]/L (Normal) Range: 0-32 [...] Glucose, Serum 120 mg/dL (Abnormal) Range: 65-99 02-Mvw-831194:11 TSH (THYROID STIMULATING Comments: January 2017; PATIENT WAS FASTINGPERFORMED BY: LabCoAcuteCare Health SystemCjwyyq2591 [facility] [id number] HORMONE) (06080) TSH 0.982 {uIU/mL} (Normal) Range: 0.450-4.500 2-Rmo-383076:02 Lipid Profile Comments: Order Date: 12/04/16Order Info: [id number] - *Hepatic Function PanelOrder Date: 12/04/16Order Info: [id number] - *Lipid Profile CC PCPComments: 12 hours fasting, may have water.[address], [address] VLDL 36 mg/dL (Normal) Range: 5-40 LDL [...] 200-240 mg/dL Borderline >240 mg/dL High Risk 5-Kgr-338123:02 Liver Profile Comments: Order Date: 12/04/16Order Info: [id number] - *Hepatic Function PanelOrder Date: 12/04/16Order Info: [id number] - *Lipid Profile CC PCPComments: 12 hours fasting, may have water.[facility] [place], [address] D BILI 0.07 mg/dL (Normal) Range: 0.00-0.30 T BILI 0.30 mg/dL (Normal) Range: 0.20-1.00 ALT 21 U/L (Normal) Range: 12-78 ALK P 112 U/L (Normal) Range: 45-117 AST 19 U/L (Normal) Range: 15-37 GLOB 3.8 g/dL (Abnormal) Range: 2.3-3.5 ALB 3.4 g/dL (Normal) Range: 3.4-5.0 T PROT 7.2 g/dL (Normal) Range: 6.4-8.2 08-Ohr-779346:29 URINE RANDELL CULTURE-ZEINAB COL Comments: PATIENT NOT FASTINGPERFORMED BY: CB [facility] Rbsmqn3642 [facility] [id number] Information: SRC:UC COUNT (92156) Result 1 MUG (Normal) Comments: Mixed urogenital flora25,000-50,000 colony forming units per mL Urine Final report (Normal) Culture,Comprehensive 35-Byq-887847:53 Urinalysis, Office (17627) UA - LEUKOCYTE ESTERASE Small (Normal) UA - NITRITE Negative (Normal) URINE UROBILINGN ZEINAB TIMED Normal mg/dL (Normal) UA - PROTEIN Negative mg/dL (Normal) UA - PH 7 (Normal) UA - BLOOD Negative (Normal) UA - SPECIFIC GRAVITY 1.020 (Normal) UA - KETONES Negative mg/dL (Normal) UA - BILIRUBIN Small (Normal) UA - GLUCOSE Negative (Normal) 09-Ard-321577:51 Blood Glucose , Office (47990) Comments: 169 Blood Glucose , Office 169 (Normal) 64-Eij-382639:52 HgA1C , Office (97900) Comments: 7.0 HgA1C , Office 7.0 % (Normal) Range: 4.6 - 7.1 :22 URINE RANDELL CULTURE-IDENTIFICATN Comments: PATIENT NOT FASTINGPERFORMED BY: Dr. TATTOFF LoanHero [facility] [id number] Information: SRC:UC (41492) Result 1 MUG (Normal) Comments: Mixed urogenital flora10,000-25,000 colony forming units per mL Urine Final report (Normal) Culture,Comprehensive 38-Wal-309418:05 Urinalysis, Office (32967) UA - LEUKOCYTE ESTERASE Negative (Normal) UA - NITRITE Negative (Normal) URINE UROBILINGN ZEINAB TIMED Normal mg/dL (Normal) UA - PROTEIN 30 mg/dL (Normal) UA - PH 6 (Abnormal) UA - BLOOD non-hemolyzed trace (Normal) UA - SPECIFIC GRAVITY 1.020 (Normal) UA - KETONES Negative mg/dL (Normal) UA - BILIRUBIN Negative (Normal) UA - GLUCOSE 100 (Abnormal) 9-Zyn-194983:42 HgA1C , Office (58538) HgA1C , Office 6.2 % (Normal) Range: 4.6 - 7.1 9-Glr-492381:42 Blood Glucose , Office (43158) Blood Glucose , Office 137 (Normal) 7-Lsh-853202:01 TSH (THYROID STIMULATING Comments: PATIENT NOT FASTINGPERFORMED BY: Dr. TATTOFF Zetkwe2553 [facility] [id number] HORMONE) (65344) TSH 1.820 {uIU/mL} (Normal) Range: 0.450-4.500 8-Jxp-105608:03 HEPATIC FUNCTION PANEL Comments: PATIENT NOT FASTINGPERFORMED BY: Lanyrd LoanHero [facility] [id number] (52980) ALT (SGPT) 15 [iU]/L (Normal) Range: 0-32 AST (SGOT) 23 [iU]/L (Normal) Range: 0-40 Alkaline Phosphatase, S 95 [iU]/L (Normal) Range: 39-117 Bilirubin, Direct 0.12 mg/dL (Normal) Range: 0.00-0.40 Bilirubin, Total 0.3 mg/dL (Normal) Range: 0.0-1.2 Albumin, Serum 4.3 g/dL (Normal) Range: 3.6-4.8 Protein, Total, Serum 7.3 g/dL (Normal) Range: 6.0-8.5 :03 HAAZR-BGJSVDSYDWP-OSQDS (30116) Comments: PATIENT NOT FASTINGPERFORMED BY: [facility]6370 [facility] [id number] AFP, Serum, Tumor Marker 2.8 ng/mL (Normal) Range: 0.0-8.3 Comments: Rosmery ECLIA methodology :03 HEPATITIS PANEL (61398) Comments: PATIENT NOT FASTINGPERFORMED BY: [facility]Be[facility]6370 [facility] [id number] Hep C Virus Ab <0.1 {s/co_ratio} (Normal) Range: 0.0-0.9 Comments: Negative: < 0.8 Indeterminate: 0.8 - 0.9 Positive: > 0.9 . The CDC recommends that a positive HCV antibody result be followed up with a HCV Nucleic Acid Amplification test (416031). Hep B Core Ab, IgM Negative (Normal) HBsAg Screen Negative (Normal) Hep A Ab, IgM Negative (Normal) :58 CBC W/Diff, Automated Comments: CBCD FOR DR Diez [facility] Mzjpsjzggr[address] [place], [place], [address] Absolute Lymph 1.84 {X10_3/ul} (Normal) Range: 0.83-4.51 [...] Comments: Order Date: 05/14/16Interface Comments: Reason:Order Date: 05/14/16[facility] [address]qvdcxjg[address] [place], [place], [address] T4 THYROXIN 11.6 ug/dL (Normal) Range: 4.8-13.9 :58 Thyroid Stim Hormone (TSH) Comments: Order Date: 05/14/16Interface Comments: Reason:Order Date: 05/14/16[facility] Srwsfjhkcq7[address] [place], [place], [address] TSH 1.96 {uIU/mL} (Normal) Range: 0.358-3.74 :11 Urinalysis, Office (16571) UA - LEUKOCYTE ESTERASE Small (Normal) UA - NITRITE Negative (Normal) URINE UROBILINGN ZEINAB TIMED Normal mg/dL (Normal) UA - PROTEIN 30 mg/dL (Normal) UA - PH 6 (Abnormal) UA - BLOOD Negative (Normal) UA - SPECIFIC GRAVITY 1.010 (Normal) UA - KETONES Negative mg/dL (Normal) UA - BILIRUBIN Negative (Normal) UA - GLUCOSE Negative (Normal) 49-Qeh-823982:50 Basic Metabolic Profile (BMP) Comments: [facility] Guruedztco[address] [place], [address] GAP 7 (Normal) Range: 5-15 CO2 33.0 [...] 100 mg/dL (Normal) Range: 70-110 :48 MAGNESIUM (94889) Comments: PATIENT NOT FASTINGPERFORMED BY: InteKrin6370 [facility] [facility] MichiganPicPrizesECU [facility] [id number] Magnesium, Serum 1.6 mg/dL (Normal) Range: 1.6-2.3 :48 TSH (THYROID STIMULATING Comments: PATIENT NOT FASTINGPERFORMED BY: [employer]Log[employer] [facility] [id number] HORMONE) (83703) TSH 6.340 {uIU/mL} (Abnormal) Range: 0.450-4.500 :48 URIC ACID BLOOD (31089) Comments: PATIENT NOT FASTINGPERFORMED BY: Inte[employer]6370 [facility] [id number] Uric Acid, Serum 6.1 mg/dL (Normal) Range: 2.5-7.1 Comments: Therapeutic target for gout patients: <6.0 :09 Blood Glucose , Office (92570) Blood Glucose , Office 116 (Normal) :09 HgA1C , Office (56196) HgA1C , Office 6.7 % (Normal) Range: 4.6 - 7.1 06-Omr-570978:19 Basic Metabolic Profile (BMP) Comments: Order Date: 03/12/16 Order #: [id number] Medical Center Jnyegwafml35[address] [place], [address] GAP 7 (Normal) Range: 5-15 CO2 29.0 [...] 7-18 GLU 107 mg/dL (Normal) Range: 70-110 15-Txr-794805:19 T4 Total, Thyroxin Comments: Order Date: 03/12/16 Order #: [id number] Medical Center I[address]egckjk[address] [place], [address] T4 THYROXIN 9.4 ug/dL (Normal) Range: 4.8-13.9 67-Znc-391079:19 Thyroid Stim Hormone (TSH) Comments: Order Date: 03/12/16 Order #: [id number] Medical Center Mqjsyxxkyl9256 [address] [place], [address] TSH 5.44 {uIU/mL} (Abnormal) Range: 0.358-3.74 59-Efd-629287:49 Aerobic Bacterial Culture Comments: PATIENT NOT FASTINGPERFORMED BY: [facility]6370 [facility] [id number] Information: RT AXILLA Result 1 MRSA (Abnormal) [...] Negative (Normal) Comments: PATIENT NOT FASTINGPERFORMED BY: [facility]6370 [facility] [id number] Information: NASAL 5:49 Culture 06-Cdz-153563:20 Basic Metabolic Profile (BMP) Comments: [facility] Jchpgvtwjz[address] [place], [place], [address] GAP 7 (Normal) Range: 5-15 CO2 29.0 [...] A.D.A. criteria. :02 Blood Glucose , Office (37856) Blood Glucose , Office 137 (Normal) :54 Urine Drug Screen (Office - WNL (Normal) Comments: pos for oxy, all else neg Urine Drug Screen 6 Panel) Comments: All negative except Oxy (10167) :52 HgA1C , Office (97464) Comments: 7.3 HgA1C , Office 7.3 % (Abnormal) Range: 4.6 - 7.1 :43 Basic Metabolic Profile (BMP) Comments: DR URBINA ORDERED BMPDR [facility] ALABAMAISPAFroylan ORDERED LIVER LIPIDSycamore Medical Center [address]wwigyhd86[address] [place], [address] GAP 3 (Abnormal) Range: 5-15 CO2 33.0 mmol/L (Abnormal) Range: 21.0-32.0 CL 102 mmol/L (Normal) Range: 98-107 K 3.4 mmol/L (Abnormal) Range: 3.5-5.1 Comments: ADDENDA: Denisse at [facility] aware of potassium level NA 138 [...] 7-18 GLU 101 mg/dL (Normal) Range: 70-110 :43 Lipid Profile Comments: DR URBINA ORDERED BMPDR MOODISPAW ORDERED LIVER LIPIDSycamore Medical Center Urouhevxfi76[address] [place], [address] VLDL 26 mg/dL (Normal) Range: [...] 200-240 mg/dL Borderline >240 mg/dL High Risk 0-Ahk-738154:43 Liver Profile Comments: DR URBINA ORDERED BMPDR MOODISPAW ORDERED LIVER LIPIDWSelect Medical [facility] Jmddkvfoon9[address] [place], [place], [address] D BILI 0.14 mg/dL (Normal) Range: 0.00-0.30 T BILI 0.40 mg/dL (Normal) Range: 0.20-1.00 ALT 16 U/L (Normal) Range: 12-78 ALK P 112 U/L (Normal) Range: 50-136 AST 19 U/L (Normal) Range: 15-37 GLOB 3.9 g/dL (Abnormal) Range: 2.3-3.5 ALB 3.0 g/dL (Abnormal) Range: 3.4-5.0 T PROT 6.9 g/dL (Normal) Range: 6.4-8.2 3-Acv-823512:02 Blood Glucose , Office (19807) Blood Glucose , Office 160 (Normal) 44-Wfo-382214:37 HgA1C , Office (81039) Comments: 7.2 HgA1C , Office 7.2 % (Abnormal) Range: 4.6 - 7.1 63-Ykc-142310:24 MRSA Culture (47186) Comments: [facility] Z[address]qsxwddt[address] [place], [place], [address] MRSA RESULT Negative (Normal) 4-Wft-826289:59 Metabolic Panel, Basic Comments: send to Dr.Masroor Urbina; PATIENT NOT FASTINGPERFORMED BY: [facility] Nlrrat6293 [facility] [id number] Information: [id number] (49042) Calcium, Serum 10.7 mg/dL (Abnormal) Range: 8.7-10.3 [...] Glucose, Serum 182 mg/dL (Abnormal) Range: 65-99 4-Jez-079035:09 MRSA Culture (73719) Comments: [facility] [address] [place], [place], [address] MRSA RESULT POSITIVE (Abnormal) :39 Lipid Profile Comments: [facility] [address] [place], [address] VLDL 23 mg/dL (Normal) Range: [...] mg/dL High Risk :39 Liver Profile Comments: [facility] Tnqpzztode4661 [facility] [address] [place], [place], [address] ; non-emergent and handled by cardio D BILI 0.14 mg/dL (Normal) Range: 0.00-0.30 T BILI 0.50 mg/dL (Normal) Range: 0.20-1.00 ALT 38 U/L (Normal) Range: 12-78 ALK P 79 U/L (Normal) Range: 50-136 AST 47 U/L (Abnormal) Range: 15-37 GLOB 4.3 g/dL (Abnormal) Range: 2.3-3.5 ALB 3.5 g/dL (Normal) Range: 3.4-5.0 T PROT 7.8 g/dL (Normal) Range: 6.4-8.2 :39 T4 Total, Thyroxin Comments: [facility] [address] [place], [address] T4 THYROXIN 10.9 ug/dL (Normal) Range: 4.8-13.9 :39 Thyroid Stim Hormone (TSH) Comments: [facility] [address] [place], [place], [address] TSH 3.63 {uIU/mL} (Normal) Range: 0.358-3.74 8-Kci-139240:13 LIPID PANEL (45303) Comments: PATIENT WAS FASTINGPERFORMED BY: [employer] [facility] [id number] LDL/HDL Ratio 1.2 {ratio_units} (Normal) Range: 0.0-3.2 [...] Cholesterol, Total 160 mg/dL (Normal) Range: 100-199 8-Vel-588489:13 CBC W/AUTO DIFF WBC Comments: PATIENT WAS FASTINGPERFORMED BY: Hot [employer]els70 [facility] [id number] Information: [id number] (30632) Immature Grans (Abs) 0.0 {x10E3/uL} (Normal) Range: [...] 3.77-5.28 WBC 4.5 {x10E3/uL} (Normal) Range: 3.4-10.8 1-Emc-191913:13 METABOLIC PANEL, COMPREHENSIVE Comments: PATIENT WAS FASTINGPERFORMED BY: LabCoAcuteCare Health SystemNwmhkx6631 [facility] [id number] (44485) ALT (SGPT) 8 [iU]/L (Normal) Range: 0-32 [...] Glucose, Serum 109 mg/dL (Abnormal) Range: 65-99 4-Iar-879275:15 Basic Metabolic Profile (BMP) Comments: [facility] [address]mb[address] [place], [address] GAP 7 (Normal) Range: 5-15 CO2 30.0 [...] 200 mg/dLsuggests DIABETES MELLITUS per A.D.A. criteria. 0-Jbb-747594:15 CBC W/Diff, Automated Comments: [facility] [address]ir[address]ldysl[address] [place], [place], [address] Absolute Lymph 0.95 {X10_3/ul} (Normal) Range: 0.83-4.51 [...] K/mm3 (Normal) Range: 4.4-11.0 :31 LIPID PANEL (97058) Comments: PATIENT WAS FASTINGPERFORMED BY: LabCoAcuteCare Health SystemEzctmw6977 [facility] [id number]; non-emergent till apt LDL/HDL Ratio 1.6 {ratio_units} [...] Cholesterol, Total 219 mg/dL (Abnormal) Range: 100-199 77-Uqr-886888:31 CBC with auto diff Comments: PATIENT WAS FASTINGPERFORMED BY: NEY [facility] Pivfol6146 [facility] [id number] Information: [id number] (95079) Immature Grans (Abs) 0.0 {x10E3/uL} (Normal) Range: [...] CREATININE RATIO Comments: PATIENT WAS FASTINGPERFORMED BY: Dr. TATTOFFAcuteCare Health SystemInqnqo8212 [facility] [id number] (84822) AND (27962) Microalb/Creat Ratio 93.7 {mg/g_creat} (Abnormal) Range: 0.0-30.0 Microalbumin, Urine 196.4 ug/mL (Abnormal) Range: 0.0-17.0 Creatinine, Urine 209.7 mg/dL (Normal) Range: 15.0-278.0 :31 METABOLIC PANEL, COMPREHENSIVE Comments: PATIENT WAS FASTINGPERFORMED BY: Dr. TATTOFFAcuteCare Health SystemBsroxa2197 [facility] [id number] (49573) ALT (SGPT) 20 [iU]/L (Normal) Range: 0-32 [...] Glucose, Serum 120 mg/dL (Abnormal) Range: 65-99 88-Dom-802947:31 Hemoglobin Glyclated (HGB A1C) Comments: PATIENT WAS FASTINGPERFORMED BY: LabCoAcuteCare Health SystemGloqze1399 [facility] [id number] (33266) Hemoglobin A1c 7.6 % (Abnormal) Range: 4.8-5.6 Comments: . Pre-diabetes: 5.7 - 6.4 Diabetes: >6.4 Glycemic control for adults with diabetes: <7.0 :30 Urinalysis, Complete Comments: Order Date: 07/18/15How was Urine Obtained? [facility] Gifijsrssl3947 [facility] [address] [place], [place], [address] MUCUS, URINE 0 SEEN {/hpf} (Normal) BACTERIA [...] (Abnormal) CLARITY Clear (Normal) COLOR Yellow (Normal) :43 CBC W/Diff, Automated Comments: [facility] [address]if[address]rbpyo[address] [place], [place], [address] PATH REV December foll (Normal) SMEAR COMMENT (Normal) Comments: LYMPHOPENIA [...] Range: 4.4-11.0 :43 Comprehensive Metabolic Profil Comments: [facility] [address]xlwh[address] [place], [address] GAP 8 (Normal) Range: 5-15 CO2 33.0 [...] be drawn 6H after initial specimenWSelect Medical [facility] Hospital Ohnmgeiqyw[address] [place], [place], [address] LACTIC ACID 1.7 mmol/L (Normal) Range: 0.4-2.0 :43 Magnesium Comments: [facility] [address] [place], [place], [address](644) MG 1.3 mg/dL (Abnormal) Range: 1.8-2.4 56-Los-212865:43 Partial Thromboplast Time Comments: [facility] [address]uyodiouu[address] [place], [address] PTT 31.4 s (Normal) Range: 24.1-36.2 84-Esy-498629:43 Phosphorus Comments: [facility] [address]vj[address] [place], [address] PHOS 1.0 mg/dL (Abnormal) Range: 2.5-4.9 Comments: Critical Result(s) Called at: 17:06:16 07/18/2015 by:Stacey roger to malia ibarra 09-Jxy-314654:43 Prothrombin Time w/INR Comments: [facility] Imanohkzcr[address] 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 Indication: Encounter for annual general [...] DF then follow up q 3 months [facility] Indication: Constipation Hypertensive heart disease without heart [...] mellitus type 2, insulin dependent Planned Observations URINALYSIS (09376)Indication: Sarcoidosis of other site On: 20-Hdt-351411:25 Request URINE RANDELL CULTURE-IDENTIFICATN (41438)Indication: Sarcoidosis of other site On: 80-Igs-612192:25 Request URINE CALCIUM ZEINAB TIMED (52859)Indication: History of sarcoidosis On: 05-Jkm-479980:53 Request Cologuard - Strool Based DNA Test, CRC SCREEN (26124)Indication: Encounter for screening for malignant neoplasm of colon (Renamed from Special screening for malignant neoplasms, colon) On: 76-Unz-150763:05 Request FECAL OCCULT- Tubes sent home (23442)Indication: Encounter for screening for malignant neoplasm of colon (Renamed from Special screening for malignant neoplasms, colon) On: 95-Jxa-415141:09 Request Lipid Panel (46027)Indication: Diabetes mellitus type 2, insulin dependent On: 27-Urp-719354:08 Request Comments: around January Metabolic Panel, Comprehensive (83249)Indication: Diabetes mellitus type 2, insulin dependent On: 11-Noc-175009:08 Request Comments: around January CBC, Platelets & Auto Diff (30392)Indication: Diabetes mellitus type 2, insulin dependent On: 04-Qhv-062952:08 Request Comments: around January TSH (94029)Indication: Diabetes mellitus type 2, insulin dependent On: 64-Zpg-698284:08 Request Comments: around January Rapid Flu (04724 x 2)Indication: Unspecified Diagnosis On: 49-Zoh-77162:33 Request CBC & PLATELETS (AUTO) (56332)Indication: Abdominal pain On: 7-Ops-059317:57 Request CULTURE, NOSE (56212)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 On: 16-Ged-878701:31 Request Comments: check for MRSA MRSA Culture (41980)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 On: 38-Did-274967:23 Request Comments: rt axila HgA1C , Office (24599)Indication: Diabetes mellitus type 2, insulin dependent On: 07-Yac-741701:21 Request Urinalysis, Office (05191)Indication: History of MRSA infection On: 39-Bin-464887:42 Request Hemoglobin Glyclated (HGB A1C) (23133)Indication: Diabetes mellitus type 2, uncontrolled On: 76-Mws-758456:46 Request MICROALBUMIN: CREATININE RATIO (06885) AND (56063)Indication: Hypertensive heart disease without heart failure On: 23-Mji-500161:46 Request Planned Encounters Medical; 3 Month FU - On: 28-Oct-2018 13:45 Comprehensive Internal Medicine Elsa Chopra CNP, CNP, Mary E Planned Procedures CHEST XRAY, PA & LATERAL (36774)By: On: 29-Jul-2018 Intent Elsa Chopra CNP, CNP, Mary E Overnight Pulse OX (38890)By: On: 30-Jun-2018 Intent Lee Ann Schafer DO SPIROMETRY PERFORMED (20597)By: On: 25-Jun-2018 Intent Visit, Nurse SPIROMETRY PERFORMED (71080)By: On: 25-Jun-2018 Intent Visit, Nurse SIX MINUTE WALK TEST (13899)By: On: 25-Jun-2018 Intent Visit, Nurse Flu Vaccine (Quadrivalent) 69363Ch: On: 20-May-2018 Intent Karly Chandra DEXA SCAN AXIAL SKELETON (87888)By: On: 18-Dec-2017 Intent Elsa Chopra CNP, CNP, Mary E SCREENING DIGITAL TOMOSYNTHESIS OF On: 18-Dec-2017 Intent BREAST ([id number])By: Elsa Chopra CNP, CNP, Mary E Flu Vaccine (Quadrivalent) 72115Sb: On: 11-Jun-2017 Intent Elsa Chopra CNP, CNP, Mary E Comments: InfluenzaLot #[id number]/18Site-L dltd, IMDose prefilled syringeVIS and ABN signedgiven by:GENARO blackwood PHYSICAL THERAPY TREATMENT On: 11-Dec-2016 Intent ([id number])By: Adelita Doshi LPN PHYSICAL THERAPY EVALUATION On: 11-Dec-2016 Intent ([id number])By: Elsa Chopra CNP, CNP, Mary E Toradol Injection, 30 mg On: 10-Dec-2016 Intent ([id number])By: Elsa Chopra CNP, CNP, Mary E Radiology - Hip - RightBy: [place] On: 10-Dec-2016 Intent Elsa MCKINLEY CNP, Mary E Aerosol Treatment ([id number])By: [place] On: 16-Oct-2016 Intent Adelita LAM Flu Vaccine (Quadrivalent) 43784Xg: On: 11-Jul-2016 Intent Elsa Chopra CNP, CNP, Mary E Comments: FLUlot: [id number]:01/16site:Lt deltoidroute:IMdose:.5mlDECLAUDETTEK, [place] Ultrasound - Abdomen CompleteBy: On: 03-Jul-2016 Intent Elsa Chopra CNP, CNP, Mary E Radiology - KUBBy: Elsa Chopra CNP On: 03-Jul-2016 Intent Elsa العلي CNP DRAIN/INJECT SMALL JOINT OR BURSA On: 18-May-2016 Intent ([id number])By: Elsa Chopra CNP Comments: to left wrist joint 1/2 cc kenalog, 1/2 cc marcaine. Kenalog lot #[id number] exp Marcain lot [id number] ex Elsa MCKINLEY MAMMOGRAM, SCREENING, BOTH BREAST On: 11-May-2016 Intent ([id number])By: Elsa Chopra CNP, CNP, Mary E Radiology - Chest- PA and LatBy: On: 23-Aug-2015 Intent Fast DO, Madeline Arevalo Comments: 4 weeks Radiology - Chest- PA and LatBy: On: 25-Jul-2015 Intent Fast DO Madeline A Comments: 3 weeks Planned Medications [...] mellitus without complication) : DISCONTINUED - URINALYSIS (09803) Indication: Diabetes mellitus type II, controlled, with no complications (Renamed from Controlled type 2 diabetes mellitus without complication) CKD (chronic kidney disease), stage III : DISCONTINUED - MICROALBUMIN: CREATININE RATIO (52495) AND ([id number]) Indication: CKD (chronic kidney disease), stage III Diabetes mellitus type II, controlled, with no complications (Renamed from Controlled type 2 diabetes mellitus without complication) : DISCONTINUED - CBC, PLATELETS & AUT DIFF ([id number]) Indication: Diabetes mellitus type II, controlled, with no complications (Renamed from Controlled type 2 diabetes mellitus without complication) Diabetes mellitus type II, controlled, with no complications (Renamed from Controlled type 2 diabetes mellitus without complication) : DISCONTINUED - METABOLIC PANEL, COMPREHENSIVE ([id number]) Indication: Diabetes mellitus type II, controlled, with no complications (Renamed from Controlled type 2 diabetes mellitus without complication) Diabetes mellitus type II, controlled, with no complications (Renamed from Controlled type 2 diabetes mellitus without complication) : DISCONTINUED - TSH ([id number]) Indication: Diabetes mellitus type II, controlled, with [...] dependent : DISCONTINUED - METABOLIC PANEL, BASIC ([id number]) Indication: Diabetes mellitus type 2, insulin dependent [...] 2, insulin dependent Encounters Phone Encounter On: 29-Jul-2018 16:21 Encounter Diagnosis: [...] patient does not have durable power of corporate consultant or living will. The patient has noticed getting bored, poor spirits most of time and lack of energy. Other providers contributing to the lyndsey bolton's care are woods superintendent () and urologist (). Note for Annual [...] and is sleeping poorly. Patient has been [employer] End: 11-Jun-2017 14:46 pliant with instructions. Current [...] - Reason for ER visit: note: (surgery [facility]. ). The patient feels well with [...] MRSA. She has had pre-op testing at [facility] on 10-14-2015, for Lumbar microdecompression for 10-24-2015 Blood work. 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
--- OUTSIDE RECORDS SUMMARY | 2018-09-25 14:47 | XMS RPT_ITS ---
:1950 Author Organization OHIP Care Team Providers Name Role Phone AdrielRobinagiana Attending Unavailable PROVIDER, UNKNOWN Referring Unavailable Elsa Chopra Primary Care Unavailable Sharon Munguia Attending Unavailable PROVIDER, UNKNOWN Referring Unavailable Elsa hCopra Primary Care Unavailable Sharon Munguia Attending Unavailable PROVIDER, UNKNOWN Referring Unavailable Elsa Chopra Primary Care Unavailable Elsa Chopra Attending Unavailable Madeline Florez DO Referring Unavailable Elsa Chopra Consulting Unavailable Elsa Chopra Attending Unavailable Elsa Chopra Referring Unavailable Elsa Chopra Primary Care Unavailable Elsa Chopra Attending Unavailable Elsa Chopra Primary Care Unavailable Cecilia Yusuf Attending Unavailable Casey Fowler Attending Unavailable Elsa Chopra Referring Unavailable Elsa Chopra Primary Care Unavailable Kimberli Abimael Attending Unavailable Elsa Chopra Primary Care Unavailable Abimael Ag Referring Unavailable Cecilia Rodriguez Consulting Unavailable Malcolm Casey Consulting Unavailable Elsa Chopra Attending Unavailable Elsa Chopra Referring Unavailable Elsa Chopra Primary Care Unavailable Elsa Chopra Attending Unavailable Elsa Chopra Referring Unavailable Elsa Chopra Primary Care Unavailable PROBLEMS PROBLEMS DATE TYPE CONDITION / CODE ATTENDING STATUS SOURCE 07/30/2018 Unknown D86.89 - Sarcoidosis Elsa Chopra Active [facility] of other sites / Community D86.89(ICD-10) Hospital Repository 07/08/2018 Admitting Chronic kidney EzraSharon Active [facility] Diagnosis disease, stage 3 System (moderate) / Repository N18.3(ICD-10) 02/17/2018 Unknown E78.5 - [place], Active [place] Hyperlipidemia, [facility] unspecified / Hospital E78.5(ICD-10) Repository 02/17/2018 Unknown I25.10 - [place], Active [place] Atherosclerotic [facility] heart disease of Hospital [place] coronary Repository artery without angina pectoris / I25.10(ICD-10) 01/21/2018 Unknown Z12.31 - Encounter Elsa Chopra Active [place] for screening Community mammogram for Hospital malignant neoplasm Repository of breast / Z12.31(ICD-10) 01/21/2018 Unknown Z78.0 - Asymptomatic Elsa Chopra Active [place] menopausal state / Community Z78.0(ICD-10) Hospital Repository PROCEDURES PROCEDURES No Procedure Records FoundRESULTS RESULTS RENAL FUNCTION Collected: 08/19/2018 Status: F Source: [place] 12:46 PM SYSTEM REPOSITORY TYPE CODE TESTS RESULT OUT OF RANGE REFERENCE UNITS LAB NA3 135-145 mmol/L Normal Sodium 135 Result Comment: NOTE: New Sodium Reference Range effective 2018 @ 10:00 LAB K3 3.5-5.1 mmol/L Normal Potassium 4.2 LAB CL3 98-107 mmol/L Low Chloride 94 LAB CO23 22-30 mmol/L High Carbon Dioxide 31 LAB ANIN3 NA Anion Gap 10 LAB GLUC3 70-100 mg/dL High Glucose 103 LAB BUN3 7-20 mg/dL High Urea Nitrogen 24 LAB CRET3 0.52-1.25 mg/dL High Creatinine 1.49 LAB GF3BR >60 mL/min eGFR 42.3 LAB GF3WR >60 mL/min eGFR OTHER 34.9 Result Comment: Source- MDRD equation with creatinine calibration to IDMS(NKDEP) eGFR not recommended for drug dose adjustment LAB CA3 8.4-10.4 mg/dL Calcium Normal 10.3 LAB ALB3 3.5-5.0 g/dL Albumin, Normal Serum 4.2 LAB PHOS3 2.5-4.5 mg/dL Phosphorus Normal 3.8 Performed By: #### RENL3 #### [facility] [address] 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 Normal heart size. Right middle lobe medial segment chronic scarring with secondary partial obscuration of the right heart border. No acute infiltrate. Right lower lobe calcified granuloma. No vascular congestion or pleural effusion. Atherosclerotic thoracic aorta. Previous T12 level kyphoplasty. RAD/Chest PA and Lateral IMPRESSION: 1. No acute disease or significant change. 2. Old granulomatous disease with right middle lobe chronic scarring. at [id number] Reported and signed by: Blane Shelley MD Electronically Signed: Blane Shelley, at 8:03 EST Tel , Service support , CC: Elsa Chopra NP Cut Off Machine Helper: Signed PROTEIN, UR RANDOM Collected: 07/08/2018 Status: F Source: [place] 10:37 AM SYSTEM REPOSITORY TYPE CODE TESTS RESULT OUT OF REFERENCE UNITS RANGE LAB URTP No Range mg/dL High Protein, Ur 30 Random Performed By: #### HEMDF, TPUR, CRTUR, RENL3 #### [facility] [address] [place] [address] #### PTH3, VD25H #### [facility] [address] [place] [address] CREATININE, UR RANDOM Collected: 07/08/2018 Status: F Source: [place] 10:37 AM SYSTEM REPOSITORY TYPE CODE TESTS RESULT OUT OF REFERENCE UNITS RANGE LAB CRTRU No Range mg/dL Creatinine, 35.7 Ur Random Performed By: #### HEMDF, TPUR, CRTUR, RENL3 #### [facility] [address] [place] [address] #### PTH3, VD25H #### [facility] [address] [place] [address] HEMOGRAM W/ AUTODIFF Collected: 07/08/2018 Status: F Source: [place] 10:34 AM SYSTEM REPOSITORY TYPE CODE TESTS RESULT OUT OF REFERENCE UNITS RANGE LAB IWBC 3.6-10.7 10*3/uL WBC Normal 7.0 LAB RBC 3.80-5.20 10*6/uL RBC Normal 4.34 LAB HGB 11.7-16.0 g/dL Hemoglobin Normal 13.2 LAB HCT 35.0-47.0 % Hematocrit Normal 40.0 LAB MCV 79.0-98.0 fL MCV Normal 92.2 LAB MCH 26.0-34.0 pg MCH Normal 30.5 LAB MCHC 32.0-36.0 % MCHC Normal 33.1 LAB RDW 11.5-14.5 % RDW Normal 13.3 LAB PLT 140-440 10*3/uL Platelet Normal 306 LAB MPV 7.4-10.4 fL MPV Normal 8.0 LAB GRAN% 40.0-80.0 % Granulocytes Normal 46.1 LAB LYMP% 20.0-40.0 % Lymphocytes High 44.9 LAB MONO% 2.0-10.0 % Monocytes Normal 6.0 LAB EOS% 1.0-6.0 % Eosinophils Normal 2.6 LAB BAS% 0.0-2.0 % Basophils Normal 0.4 LAB ANC 1.8-7.0 10*3/uL Abs Normal Neutrophile Cnt 3.2 LAB ALC 1.0-4.3 10*3/uL Abs Lymph Cnt Normal 3.1 LAB AMC 0.0-0.8 10*3/uL Abs Monocyte Normal Cnt 0.4 LAB AEC 0.0-0.5 10*3/uL Abs Eosin Cnt Normal 0.2 LAB ABC 0.0-0.2 10*3/uL Abs Baso Cnt Normal 0.0 Performed By: #### HEMDF, TPUR, CRTUR, RENL3 #### [facility] [address] [place] [address] #### PTH3, VD25H #### [facility] [address] [place] [address] RENAL FUNCTION Collected: 07/08/2018 Status: F Source: [place] 10:34 AM SYSTEM REPOSITORY TYPE CODE TESTS RESULT OUT OF RANGE REFERENCE UNITS LAB NA3 137-145 mmol/L Sodium Normal 137 LAB K3 3.5-5.1 mmol/L Normal Potassium 4.8 LAB CL3 98-107 mmol/L Low Chloride 95 LAB CO23 22-30 mmol/L High Carbon Dioxide 31 LAB ANIN3 NA Anion Gap 11 LAB GLUC3 70-100 mg/dL High Glucose 205 LAB BUN3 7-20 mg/dL Urea Normal Nitrogen 19 LAB CRET3 0.52-1.25 mg/dL High Creatinine 1.30 LAB GF3BR >60 mL/min eGFR 49.5 LAB GF3WR >60 mL/min eGFR OTHER 40.8 Result Comment: Source- MDRD equation with creatinine calibration to IDMS(NKDEP) eGFR not recommended for drug dose adjustment LAB CA3 8.4-10.4 mg/dL High Calcium 10.5 LAB ALB3 3.5-5.0 g/dL Albumin, Normal Serum 4.1 LAB PHOS3 2.5-4.5 mg/dL Phosphorus Normal 3.9 Performed By: #### HEMDF, TPUR, CRTUR, RENL3 #### [facility] [address] [place] [address] #### PTH3, VD25H #### [facility] [address] [place] [address] PTH, INTACT Collected: 07/08/2018 Status: F Source: [place] 10:34 AM SYSTEM REPOSITORY TYPE CODE TESTS RESULT OUT OF RANGE REFERENCE UNITS LAB PTH3 15.0-63.0 pg/mL Normal PTH, Intact 49.2 Performed By: #### HEMDF, TPUR, CRTUR, RENL3 #### [facility] [address] [place] [address] #### PTH3, VD25H #### [facility] [address] [place] [address] VIT D 25-OH, TOTAL Collected: 07/08/2018 Status: F Source: [place] 10:34 AM SYSTEM REPOSITORY TYPE CODE TESTS RESULT OUT OF RANGE REFERENCE UNITS LAB VD25H 30-100 ng/mL Normal Vit D 47 25-OH, Total Result Comment: Therapy is based on measurement of Total 25-OHD with the following classification levels: Less than 20 ng/mL: Indicative of Vit D deficiency 20-30 ng/mL: Suggests Vit D insufficiency Optimal: Greater than or equal to 30 ng/mL Test performed by [employer]etitive Immunoassay, measuring Total Vitamin D, not individual fractions. Performed By: #### HEMDF, TPUR, CRTUR, RENL3 #### [facility] [address] [place] [address] #### PTH3, VD25H #### [facility] [address] [place] [address] BASIC METABOLIC Collected: 02/24/2018 Status: F Source: [place] PROFILE (BMP) 8:40 AM [facility] REPOSITORY Order Comment: SEND RESULTS OF BMP TO . TYPE CODE TESTS RESULT OUT OF RANGE REFERENCE UNITS LAB L501.0100 74-106 mg/dL High GLU 164 Result Comment: Fasting Glucose result greater than or equal to 126 mg/dL suggests DIABETES MELLITUS per A.D.A. criteria. Please note revised GLUCOSE reference range effective 2017. LAB L501.1000 7-18 mg/dL High BUN 20 LAB L501.1100 0.55-1.02 mg/dL High CREAT,SERUM 1.71 Result Comment: The validity of the calculated GFR AND GFRAA in patients over 70 years has not been determined. Clinical correlation is essential. LAB L501.1110 >60 mL/min Low EST GFR 32 Result Comment: Non- GFR Calc LAB L501.1115 >60 mL/min Low EST GFR - AA 38 Result Comment: GFR Calc LAB L501.1300 10-20 RATIO Normal BUN/CRE 11.7 LAB L501.2200 8.5-10.1 mg/dL CA Normal 9.5 LAB L501.5300 136-145 mmol/L Low NA 135 LAB L501.5600 3.5-5.1 mmol/L K Normal 4.1 LAB L501.5900 98-107 mmol/L Low CL 97 LAB L501.6100 21.0-32.0 mmol/L Normal CO2 27.0 LAB L501.6200 5-15 Normal GAP 11 Performed By: #### L500.2500, L500.3400 #### [facility] [address] [place], [place], [id number] LIVER PROFILE Collected: 02/24/2018 Status: F Source: [place] 8:40 AM [facility] REPOSITORY Order Comment: SEND RESULTS OF BMP TO . TYPE CODE TESTS RESULT OUT OF RANGE REFERENCE UNITS LAB L501.1500 6.4-8.2 g/dL Normal T PROT 7.8 LAB L501.1800 3.2-5.0 g/dL Normal ALB 3.8 LAB L501.1950 2.2-4.2 g/dL Normal GLOB 4.0 LAB L501.4100 15-37 U/L Normal AST 17 LAB L501.4305 45-117 U/L Normal ALK P 103 LAB L501.4405 13-56 U/L Normal ALT 22 LAB L501.4600 0.20-1.00 mg/dL Normal T BILI 0.40 LAB L501.4700 0.00-0.30 mg/dL Normal D BILI 0.09 Performed By: #### L500.2500, L500.3400 #### [facility] [address] [place], [address] CARDIOLOGY VISIT Observed: 02/17/2018 Status: F Source: [place] REPORT 3:30 PM [facility] REPOSITORY [facility] [address] [place] [address] OFFICE VISIT Date of Service: 02/17/18 MR#: [id number] Acct: [id number] Name: SHREYAS KATHLEEN Rep #: [id number] : 1950 Provider: Casey Fowler MD Age/Sex: 67/F [place] [facility] Status: Signed HPI HPI Details: SHREYAS KATHLEEN, is a 67 F who presents to the office today for for outpatient cardiovascular follow-up of her history of underlying CAD, non-ST segment elevation VT, paroxysmal atrial fibrillation, superimposed upon a history [...] Visit Reasons: 6 M FU Allergies prochlorperazine edisylate [From Compazine] Allergy (Verified 02/17/18 14:51) Other Medications Amlodipine [Norvasc] 5 mg PO DAILY 07/18/15 [History Confirmed 02/17/18] Aspirin [Aspirin, Baby] 81 mg PO DAILY@0800 07/18/15 [History Confirmed 02/17/18] Citalopram [Celexa] 20 mg PO DAILY 07/18/15 [History Confirmed 02/17/18] Furosemide [Lasix] 20 mg PO DAILY 07/18/15 [History Confirmed 02/17/18] proMETHazine tablet [Phenergan tablet] 25 mg PO PRN PRN 07/18/15 [History Confirmed 02/17/18] atorvastatin 20 mg tablet 20 mg PO QDAY 02/16/18 [History Confirmed 02/17/18] doxylamine succinate 25 mg tablet 50 mg PO QHS PRN tab 02/16/18 [History Confirmed 02/17/18] ferrous sulfate 325 mg (65 mg iron) tablet 325 mg PO QDAY tab 02/16/18 [History Confirmed 02/17/18] levothyroxine 50 mcg tablet 50 mcg PO QDAY 02/16/18 [History Confirmed 02/17/18] metformin 500 mg tablet 500 mg PO BID 02/16/18 [History Confirmed 02/17/18] omeprazole 20 mg tablet,delayed release 20 mg PO QDAY 02/16/18 [History Confirmed 02/17/18] potassium chloride ER 10 mEq capsule,extended release 10 meq PO BID 02/16/18 [History Confirmed 02/17/18] calcitriol 0.25 mcg capsule 0.25 mcg PO QDAY 02/17/18 [History Confirmed 02/17/18] cholecalciferol (vitamin D3) 2,000 unit capsule 2,000 unit PO QDAY 02/17/18 [History Confirmed 02/17/18] cyclobenzaprine 10 mg tablet 10 mg PO BID PRN tab 02/17/18 [History Confirmed 02/17/18] lorazepam 1 mg tablet 1 mg PO QHS PRN 02/17/18 [History Confirmed 02/17/18] oxycodone ER 13.5 mg capsule sprinkle ext release 12 hr(tamper resist) 13.5 mg PO Q12H 02/17/18 [History Confirmed 02/17/18] oxycodone-acetaminophen 7.5 mg-325 mg tablet 1 tab PO Q4H PRN 02/17/18 [History Confirmed 02/17/18] PFSH Medical History Atherosclerotic heart disease of [place] coronary artery without angina pectoris (Chronic) History of myocardial infarction (Acute) Type 2 diabetes mellitus (Chronic) Hyperlipidemia (Chronic) Long-term use of high-risk medication (Chronic) HARI (obstructive sleep apnea) (Chronic) HTN (hypertension) (Chronic) CKD (chronic kidney disease) stage 3, GFR 30-59 ml/min (Chronic) PAF (paroxysmal atrial fibrillation) (Chronic) Diastolic dysfunction (Chronic) Obesity (BMI 30.0-34.9) (Chronic) Osteopenia (Acute) Pulmonary sarcoidosis (Acute) TIA (transient ischemic attack) (Acute) COPD (chronic obstructive pulmonary disease) (Chronic) Chronic respiratory failure with hypoxia (Chronic) Hypothyroidism (Chronic) Pleural effusion (Chronic) Acute bronchitis (Inactive) CRF (chronic renal failure) (Inactive) Narcotic dependency, continuous (Inactive) Sepsis (Inactive) Surgical History History of back surgery (Resolved) History of cholecystectomy (Resolved) History of hysterectomy (Resolved) History of right knee joint replacement (Resolved) Family History Sister Diabetes Hypertension Sister Diabetes Hypertension Sister Diabetes Hypertension Social History Smoking Status: Never smoker alcohol intake: never ROS Const Const: Negative for fatigue, weakness, weight gain, weight loss, frequent falls or excessive sweating Eyes Eyes: Negative for change in vision, blurry vision or transient loss of vision ENT ENT: Negative for dizziness or balance problems Cardio Chest Pain: No Palpitations: No Edema: None Muscle aches with walking: None Resp Respiratory: Positive for SOB with activity (occasional); negative for SOB at rest GI GI: Negative vomiting or vomiting blood/hematemesis : Negative for hematuria Musc Musc: Positive for joint pain (more frequently); negative for balance problems, muscle aches/ myalgia or muscle weakness Skin Skin: Negative non-healing lesions or rash Neuro Neuro: Negative for weakness, blurry vision, dizziness, lightheadedness, frequent falls or orthostatic symptoms Jalen Hematologic/Lymphatic: Negative for easy bleeding Endo Endo: Negative for fatigue or excessive sweating Psych Psych: Negative for anxiety or depression Allergy Allergy/Immunology: Negative for hives, Negative for rash Cardiology Exam Const Appearance: cooperative, healthy appearing, comfortable, no acute distress, well developed and well groomed Nutritional Appearance: average body habitus Orientation: alert, oriented x3 and awake Head Head: normal to inspection, normocephalic and atraumatic Ears: hearing grossly normal bilaterally Nose: external nose normal Face and Sinus: face symmetric Mouth: oral mucosae normal Teeth and gingiva: fair dentition Eyes Eyelids: eyelids normal Conjunctivae: conjunctivae normal EOM: EOM intact bilaterally Neck Neck: normal visual inspection and full ROM Carotids: normal carotid upstroke Chest Chest inspection: normal inspection of the chest and symmetric chest movement Auscultation: Bilateral: Clear to Auscultation Cardio Palpation: normal PMI Rate: regular rate Rhythm: regular rhythm Heart sounds: S1 normal and S2 normal GI GI: normal to inspection, bowel sounds present, soft and no hepatosplenomegaly Neuro General: alert, awake, oriented x3 and moves all extremities Skin Skin: no rashes or lesions noted Extremities Pulses: Normal: Right Radial Pulse, Left Radial Pulse Lower Extremity Edema: Trace: Bilateral Psych Psychological: normal affect Supplemental Info She did have a transthoracic echocardiogram performed on 07/19/2015. At that time her left ventricle was thought to be normal with an LVEF of 65%, normal diastolic G for age, moderate left atrial enlargement, mild TR, and an estimated RV systolic pressure of 40 mmHg. She also had a diagnostic cardiac catheterization performed on 06/22/2014. The results are as noted below. Final impression: 1, Relatively normal resting left ventricular end-diastolic pressure 2. Left ventricle: A. Not performed secondary to chronic renal insufficiency 3, Left main coronary artery: A. Angiographically normal 4. Left anterior descending coronary artery: A. Proximal calcification with 10-25% stenosis B. Minimal luminal irregularities 5. Left circumflex coronary artery: A. Minimal Juminal irregularities B. First OM with proximal 102 5% stenosis 6. Right coronary artery: A. Moderate sized dominant vessel B. Minimal luminal irregularities C. Proximal portion prior to and following the takeoff of a small RV marginal branch demonstrates 25% diffuse appearing stenosis Assessment AND Plan 1. Atherosclerosis of [place] coronary artery of [place] heart without angina pectoris I25.10 Mild Plan At the present time she appears to be doing reasonably well overall. She will continue risk factor modification and medical management. Orders Orders: 2. Paroxysmal atrial fibrillation I48.0 Plan She does have a history of paroxysmal atrial fibrillation. She has been on aspirin therapy and rate control therapy. She has not been on anticoagulant therapy based on previous concerns of anemia. 3. Hyperlipidemia, unspecified hyperlipidemia type E78.5 Plan Her lipid history is been reviewed. She will be scheduled for upcoming future fasting lipid and hepatic labs. Orders Orders: 4. Essential hypertension I10 Plan Her blood pressure appears to be reasonably well controlled. She will continue medical management and follow-up. 5. Long-term use of high-risk medication Z79.899 Plan As she is on medical therapy with respect her lipid labs she will have a future fasting lipid and hepatic profile. Plan Detail Additional Comments Otherwise she will be scheduled for an outpatient visit in approximately 9 months unless needed sooner. Thank you for allowing me to participate in the care of your patient. Please don't hesitate to call if any issues arise. This note was generated using a voice recognition system and there may be incorrect words, spelling or punctuation that were not noted when reviewing the office note prior to saving. Follow Up 9 Months Coding Level of Care Code Off vis,est,level 4 Diagnoses Atherosclerosis of [place] coronary artery of [place] heart without angina pectoris I25.10 [place] vs. transplanted heart: [place] heart Paroxysmal atrial fibrillation I48.0 Hyperlipidemia, unspecified hyperlipidemia type E78.5 Hyperlipidemia type: unspecified Essential hypertension I10 Hypertension type: essential hypertension Long-term use of high-risk medication Z79.899 Coding Level of Care Code Off vis,est,level 4 Diagnoses Atherosclerosis of [place] coronary artery of [place] heart without angina pectoris I25.10 [place] vs. transplanted heart: [place] heart Paroxysmal atrial fibrillation I48.0 Hyperlipidemia, unspecified hyperlipidemia type E78.5 Hyperlipidemia type: unspecified Essential hypertension I10 Hypertension type: essential hypertension Long-term use of high-risk medication Z79.899 02/17/18 1530 <Electronically signed by Casey Fowler MD> Date Casey Fowler MD Cosigner Signature: Date (if applicable) CC: Elsa Chopra NP SCREENING MAMM (CAD), Observed: 02/14/2018 Status: F Source: [facility] 12:50 PM [facility] REPOSITORY [facility] Imaging Services [address] [place] [id number] SCREENING MAMM (CAD), BILAT MR#: [id number] Acct: [id number] Name: HEVERSHREYAS J Rep #: [id number] : 1950 F 67 From: Elias Finn MD PCP: Elsa Chopra NP Status: REG CL Study: SCREENING MAMM (CAD), BILAT Date of Exam: 02/14/18 Exam# [id number] Ordering Dr: Elsa Chopra MAMMOGRAPHY - BILATERAL SCREENING REASON FOR EXAM: Female, 67 years old. Routine annual screening examination. PERTINENT HISTORY: Non-contributory. History of prior bilateral breast reduction surgery. Remote bilateral excisional breast biopsies. TECHNIQUE: Digital bilateral [...] these results will be sent to the patient by the facility within 30 days. Approximately 10% of breast cancers are not detected by mammography. A normal mammogram should not delay biopsy of a clinically suspicious abnormality. [id number] Electronically Signed: Elias Finn MD at 8:30 EDT Tel [phone], Service support , CC: Elsa Chopra NP Cut Off Machine Helper: Signed DEXA BONE DENSITY Observed: 01/21/2018 Status: F Source: [place] STUDY 12:48 PM [facility] REPOSITORY [facility] Imaging Services [facility] [place] [address] [address] [place] [address] Dexa Bone Density Study MR#: [id number] Acct: [id number] Name: SHREYAS KATHLEEN Rep #: [id number] : 1950 F 67 From: Elias Finn MD PCP: Elsa Chopra NP Status: REG CLI Study: Dexa Bone Density Study Date of Exam: 01/21/18 Exam# [id number] Ordering Dr: Elsa Chopra STUDY: DUAL ENERGY X-RAY ABSORPTIOMETRY / DXA REASON FOR EXAM: Female, 67 years old. The patient is postmenopausal. Loss of height. TECHNIQUE: Bone Mineral Density (BMD) measurements of lumbar spine and bilateral hips were obtained. COMPARISON: None. FINDINGS: Lumbar Spine (L1-L4): g/cm2 (1.059) / T-score (-1.2) / Z-score (0.4) Findings are suggestive of osteopenia with a moderate fracture risk. Prior vertebral plasty of the L1 vertebrae. Left Femur Total: g/cm2 (0.902) / T-score (-0.8) / Z- score (0.4) Left Femoral Neck: g/cm2 (0.880) / T-score (-1.1) / Z- score (0.4) Right Femur Total: g/cm2 (0.898) / T-score (-0.9) / Z- score (0.4) Right Femoral Neck: g/cm2 (0.810) / [...] bone mineral density. The World Health Organization (WHO) interprets the T-scores as follows: Above -1 Normal bone density Between -1 and -2.5 Osteopenia Equal to / or below -2.5 Osteoporosis As a practical clinical guideline, osteopenia may be graded as follows: Mild -1 through -1.5 Moderate -1.6 through -2.0 Severe -2.1 through -2.4 The Z-score is the number of standard deviations above or below age-matched controls. A Z-score of less than -1.5 would be considered abnormal. References: 1. NIH Osteoporosis and Related Bone Diseases http://www.osteo.org 2. International Society for Clinical Densitometry http://www.iscd.org 3. National Osteoporosis Foundation http://www.nof.org Electronically Signed: Elias Finn MD at 15:36 EDT Tel [phone], Service support , CC: Elsa Chopra NP Cut Off Machine Helper: Signed ED PROV NOTE Observed: 10/15/2017 Status: COMPLETED Source: [place] 4:25 PM [facility] REPOSITORY HNO ID: [id number] Author: Antoine Chandra MD Service: Emergency Medicine Author Type: Physician Type: ED Provider Notes Filed: 10/16/2017 1:24 AM Note Text: ED Provider Note Patient Name: Shreyas Kathleen SERVICE DATE: 10/15/17 History Patient presents with: Eye Pain HPI Comments: Pt symptoms started with migraine on , and progressed form there with right eye pain, tearing, discharge, worse w rubbing eye. Tearing Patient is a 67 year old female presenting with conjunctivitis. Conjunctivitis The current episode started 5 to 7 days ago. The problem has been gradually worsening. The problem is moderate. Nothing relieves the symptoms. Nothing aggravates the symptoms. Associated symptoms include decreased vision, eye discharge, eye pain and eye redness. Pertinent negatives include no fever, no abdominal pain, no headaches, no rhinorrhea and no rash. PAST MEDICAL HISTORY Diagnosis Date - Anxiety - Arrhythmia - Atelectasis of both lungs - Chronic back pain from degenerative disc disease - Congestive heart failure (HCC) - Contact and allergic dermatitis of eyelid - DM2 (diabetes mellitus, type 2) ([facility]) - H/O degenerative disc disease - HTN (hypertension) - Hyperlipidemia - HARI (obstructive sleep apnea) - Osteoarthritis of knees, bilateral - Sarcoidosis (HCC) 12/2014 of bone marrow PAST SURGICAL HISTORY Procedure Laterality Date - PAST SURGICAL HISTORY OF 2006 right TKA FAMILY HISTORY Problem Relation Age of Onset - Kidney Disease Sister End-Stage Renal Disease in sisters - High Blood Pressure [Other] [OTHER] - Diabetes Social History Social History Main Topics - Smoking status: Never Smoker - Smokeless tobacco: Never Used - Alcohol use No - Drug use: No - Sexual activity: Not Asked ALLERGIES Allergen Reactions - Compazine [Prochlor* Other: See Comments Feels antsy and shaky Review of Systems Constitutional: Negative for fever. HENT: Negative for rhinorrhea. Eyes: Positive for pain, discharge and redness. Negative for visual disturbance. Pt reports glue like discharge from right eye, been rubbing frequently Respiratory: Negative for shortness of breath. Cardiovascular: Negative for chest pain. Gastrointestinal: Negative for abdominal pain. Genitourinary: Negative for dysuria. Skin: Negative for rash. Neurological: Negative for seizures, numbness and headaches. All other systems reviewed and are negative. Physical Exam BP 149/91 Pulse 112 Temp (Src) 98.4 (Temporal Artery) Resp 18 Ht 5' 4 (1.63m) Wt 192 lb (87.1kg) SpO2 96% BMI 32.94 kg/(m2). Physical Exam Constitutional: She is oriented to person, place, and time. She appears well-developed and well-nourished. HENT: Head: Normocephalic and atraumatic. Eyes: Right eye exhibits chemosis and discharge. Left eye exhibits no discharge. Right conjunctiva is injected. Right eye exhibits normal extraocular motion and no nystagmus. Right pupil is round. Left eye normal, right eye w chemosis, injection, tearing, discharge, clouding of cornea, no lid or surrounding skin changes, full ROM, no cheek tenderness or rash Pulmonary/Chest: No respiratory distress. Neurological: She is alert and oriented to person, place, and time. Skin: No rash noted. Psychiatric: She has a normal mood and affect. Her behavior is normal. Judgment and thought content normal. Nursing note and vitals reviewed. Diagnostic Testing ED Labs Ordered and Reviewed - No data to display Procedures Medical Decision Making / ED Course ED Course 67 year old pt who does not wear corrective lenses or contacts presents with right eye pain, discharge, and tearing which has been progressing since last . Initially thought related to migraine JAVED however this resolved. Since then pt with increased tearing, and pain, and reports a glue like discharge from the right eye. No history or signs of trauma, and no surrounding changes outside of eye, and findings contained to the right eye. at bedside reports that pt continually rubbing eye, despite the symptoms. Denies foreign body sensation. likely etiology is infectious process with the above and pt is started on topical gtts. Dc instructions include optho f/u LEXI, and RTER symptoms are discussed. No diagnosis found. Plan The Patient was DISCHARGED: Counseled patient regarding suspected diagnosis AND need for follow-up. Discharged home with verbal and written instructions. They were instructed to return as needed for persistent or worsening symptoms or any new concerns. Condition at time of disposition: stable SIGNATURE: MD Antoine Rehman MD 10/16/17 0124 ED NOTE Observed: 10/15/2017 Status: COMPLETED Source: [place] 3:56 PM [facility] REPOSITORY HNO ID: [id number] Author: Marzena (Rn) CAT Varela Service: Emergency Medicine Author Type: Registered Nurse Type: ED Notes Filed: 10/15/2017 3:57 PM Note Text: Pt alert and oriented. resps easy. Pt c/o right eye pain. ALLERGIES ALLERGIES DATE TYPE / NAME / CODE REACTION SEVERITY SOURCE CODE 02/17/2018 Drug prochlorperazine Other Unknown [place] Allergy/41 edisylate/[id number](R [facility]ly [facility] [id number][facility] Repository ENCOUNTERS ENCOUNTERS ADMIT/DISCHARGE ACCOUNT NUMBER ADMITTING ENCOUNTER LOCATION SOURCE CLASS 08/19/[id number] [facility] Repository 07/31/2018 [id number] [facility] ding:HPRAD Repository 07/30/2018 [id number] [facility] ding:RAD.FUT Repository URE 07/28/2018 [id number] Ambulatory Building:[facility] [place] Practices Repository 07/08/[id number] [facility] Repository 02/24/2018 [id number] [facility] ding:LAB.FUT Repository URE 02/17/2018/02/18/20 [id number] Ambulatory BMSBuilding: [place] 18 [facility] Repository 02/16/2018 [id number] Ambulatory BMSBuilding: [place] BMS[facility] Repository 02/14/2018 [id number] Ambulatory [facility] ding:OPBI Repository 01/21/2018 [id number] Ambulatory [facility] ding:OPBD Repository 12/16/2017 [id number] Ambulatory [facility] Repository PAYERS PAYERS ENCOUNTER GUARANTOR PAYER SUBSCRIBER SOURCE 08/19/2018 Shreyas J [facility]: [facility] System y Number: Effective [id number] Repository [place], [place] Date: [address]Hlc: () 07/31/2018 SHREYAS J Primary SHREYAS J [place] [id number] [place]AS Insurance:HUMANA JENKINDOB: [place] PPOPolicy [id number] [address]Wjh: 330) Number: Repository [phone] () [id number] Date:[id number] [address]JB: 07/31/2018 Secondary NOT GIVENUNK [place] Insurance:SELF PAY [facility] Number: Effective Repository Date:2018-07-31 07/30/2018 SHREYAS J Primary SHREYAS J [place] [id number] THOAMS Insurance:HUMANA JENKINDOB: [place] PPOPolicy [id number] [address]Zts: 330) Number: Repository [phone] () [id number] Date:8557-44-93GY [address] [place] [address]OT: 07/30/2018 Secondary NOT GIVENUNK [place] Insurance:SELF PAY [facility] Number: Effective Repository Date:2018-07-30 07/28/2018 Shreyas J Primary Shreyas J OHIP Practices JenkinDOB: Insurance:Humana/Medi JenkinDOB: Repository care adv planPoly [id number] CARLA Garcia Number: CARLA Garcia [id number]: [phone] [id number]: (HP) Date:[id number] [id number] () Name:[address] [place] [address]EY: 07/28/2018 Secondary Shreyas J OHIP Practices Insurance:Humana JenkinDOB: Repository Choice [facility] [id number] Number: CARLA Garcia [id number]: (330) Date: - [phone] () [id number] Name:[address] [place] [address]IB: 07/08/2018 Shreyas J Primary [facility]reyas J [facility] JenkinDOB: Insurance:HumanaPolic JenkinDOB: System y Number: Effective [id number] Repository [place] Date: [address]Lly: () 02/24/2018 SHREYAS J Primary SHREYAS J [facility] [place] [id number] [address]USH Insurance:HUMANA JENKINDOB: [place] PPOPolicy [id number] [address]Lxp: (330) Number: Repository [phone] () [id number] Date:5202-76-51KC [address] [place] [address]MD: 02/24/2018 Secondary NOT GIVENUNK [place] Insurance:SELF PAY [facility] Number: Effective Repository Date:2018-02-20 02/17/2018 SHREYAS J Primary SHREYAS J [place] [id number] [address] Insurance:HUMANA JENKINDOB: [place] PPOPolicy [id number] [address]Ncj: (330) Number: Repository [phone] () [id number] Date:[id number] [address] [address]SZ: 02/17/2018 Secondary NOT GIVENUNK [place] Insurance:SELF PAY [facility] Number: Effective Repository Date:2017-08-22 02/16/2018 Shreyas J Primary Shreyas J [place] [id number] [place] Insurance:HUMANA JenkinDOB: [place] PPOPolicy [id number] [address]Kxw: (330) Number: Repository [phone] () [id number] Date:6179-88-94OU [address]46[address]WP: 02/16/2018 Secondary NOT GIVENUNK [place] Insurance:SELF PAY [facility] Number: Effective Repository Date:2018-02-16 02/14/2018 Shreyas J Primary Shreyas J [place] [id number] [place] Insurance:HUMANA JenkinDOB: [place] MEDICARE [facility] [id number] [address]Hgu: (330) Number: Repository [phone] () [id number] Date:2781-10-54UK [address]46[address]WP: 02/14/2018 Secondary NOT GIVENUNK [place] Insurance:SELF PAY [facility] Number: Effective Repository Date:2018-01-28 01/21/2018 Shreyas J Primary Shreyas J [place] [id number] [place] Insurance:HUMANA JenkinDOB: [place] PPOPolicy [id number] [address]Sap: (330) Number: Repository [phone] () [id number] Date:8586-95-47QE [address] [address]TL: 01/21/2018 Secondary NOT GIVENUNK [place] Insurance:SELF PAY [facility] Number: Effective Repository Date:2017-12-19 12/16/2017 Shreyas J Primary Shreyas J [facility] JenkinDOB: Insurance:HumanaPolic JenowenDOB: System y Number: [id number] Date: [address]Cdi: ()
== END ==
PROVIDERS: Family Provider Nurse Practitioner; PCP Nurse Practitioner; Referring Provider Nurse Practitioner; Visit Provider Nurse Practitioner
DX: D86.89 Sarcoidosis of other sites (principal)
CPT/HCPCS: 71046

== ENCOUNTER → 2018-11-17 16:46 | Outpatient (CLI) | payer MEDICARE, SELFPAY ==
[2018-11-17 15:27] VITALS: BMI 30.9
[2018-11-17 17:15] LABS: Absolute Neutrophil Count 9.5 X10^3/uL (2.0-7.7); Basophil# 0.03 X10^3/uL; Basophil% 0.2 % (0-1); Eosinophils% 0.7 % (0-5); Hemoglobin 14.5 g/dl (12.0-15.0); Lymphocyte % 23.1 % (19-41); Mean Corp Hgb Conc 32.2 g/gl (32-36); Mean Corpuscular Hgb 30.3 pg (27.0-32.0); Mean Corpuscular Volume 94.1 fL (81-99); Mean Platelet Vol. 9.3 fl (6.2-12.0); Monocyte# 0.67 X10^3/uL; Neutrophil # 9.48 X10^3/uL (2.7-7.7); Neutrophil % 70.7 % (47-70); Platelet Count 363 K/mm3 (150-450); RBC Distribution Width CV 11.9 % (11.6-14.6); RBC Distribution Width SD 40.5 fl (35.1-43.9); Red Blood Count 4.78 M/mm3 (4.2-5.4); White Blood Count 13.4 K/mm3 (4.4-11.0)
[2018-11-17 17:18] LABS: POSITIVE COUNT NO; POSITIVE DIFFERENTIAL NO; POSITIVE MORPHOLOGY NO
[2018-11-17 18:15] LABS: Anion Gap 10 (5-15); BUN 16 mg/dL (7-18); BUN/Creat Ratio 8.5 RATIO (10-20); Chloride 97 mmol/L (98-107); Creatinine, Serum 1.88 mg/dL (0.55-1.02); EST Glomerular Filtration Rate 28 mL/min (>60); Est Glom Filt Rate - Afr Amer 34 mL/min (>60); Glucose 200 mg/dL (74-106); Magnesium 1.6 mg/dL (1.6-2.6); Potassium 3.7 mmol/L (3.5-5.1); Sodium Level 136 mmol/L (136-145); Thyroid Stim Hormone (TSH) 2.14 uIU/mL (0.358-3.74)
== END ==
PROVIDERS: Family Provider Nurse Practitioner; PCP Nurse Practitioner; Referring Provider Physician Assistant Medical; Visit Provider Physician Assistant Medical
DX: I25.10 Atherosclerotic heart disease of native coronary artery without angina pectoris (principal); I48.0 Paroxysmal atrial fibrillation; I10 Essential (primary) hypertension; E78.5 Hyperlipidemia, unspecified; E11.9 Type 2 diabetes mellitus without complications
CPT/HCPCS: 36415; 80048; 83735; 84443; 85025

== ENCOUNTER 2018-11-28 12:58 | Outpatient (RCR) | payer MEDICARE, SELFPAY ==
[2018-11-17 15:27] VITALS: BMI 30.9
[2018-11-28 13:37] LABS: International Normalized Ratio 2.9; Prothrombin Time (Protime)PT. 30.8 SECONDS (11.7-14.9)
[2018-11-28 13:57] LABS: Cholesterol 146 mg/dL (200); High Density Lipoprotein 51 mg/dL; Triglycerides 285 mg/dL; Very Low Density Lipoprotein 57 mg/dL (5-40)
== END 2018-11-28 13:00 | disposition home or self-care (01) ==
LOC: LAB 12:58
PROVIDERS: Family Provider Nurse Practitioner; PCP Nurse Practitioner; Referring Provider Internal Medicine Cardiovascular Disease; Visit Provider Internal Medicine Cardiovascular Disease
DX: I25.10 Atherosclerotic heart disease of native coronary artery without angina pectoris (principal); E78.5 Hyperlipidemia, unspecified; I48.0 Paroxysmal atrial fibrillation; Z79.01 Long term (current) use of anticoagulants
CPT/HCPCS: 36415; 80061; 85610

== ENCOUNTER → 2018-12-04 06:12 | Outpatient (CLI) | payer MEDICARE, SELFPAY ==
[2018-11-17 15:27] VITALS: BMI 30.9
--- NOTE | 2018-12-04 06:27 | ECHOCS_ITS ---
Reason For Study: AFIB/FLUTTER Procedure This was a 2D Doppler, Color Flow transthoracic echocardiogram. The study was technically difficult. Contrast injection was performed. Exam performed in department. Left Ventricle Normal LV size. Left ventricular systolic function is normal. The estimated ejection fraction is 65 %. No regional wall motion abnormalities noted. Right Ventricle Normal RV size. Normal systolic function. Atria The left atrium is moderately enlarged. Normal right atrium. No doppler evidence for ASD. Mitral Valve There is mild to moderate mitral annular calcification. Extension of the mitral annular calcification onto the posterior mitral valve leaflet. Mild (1+) mitral valve insufficiency. Tricuspid Valve Normal tricuspid valve. Mild to moderate (1-2+) eccentric tricuspid valve insufficiency. Right ventricular systolic pressure estimated to be 41 mmHg. Aortic Valve Trisinus/trileaflet aortic valve. Mild focal aortic valve calcification. Pulmonic Valve The pulmonic valve is not well visualized. Trivial pulmonic valve insufficiency. Great Vessels Normal sized aortic root. Pericardium/Pleural No pericardial effusion. Medication 22 gauge I.V. with prn adaptor inserted into left arm. Diluted definity 6ml given slow IV push to enhance endocardial definition. MMode/2D Measurements & Calculations LVIDd: 4.8 cm IVSd: 0.89 cm Ao root diam: 3.2 cm LVIDs: 2.8 cm LVPWd: 0.96 cm LA dimension: 4.2 cm RVDd: 3.1 cm FS: 42.8 % LAV(MOD-bp): 85.0 ml LA A4 area: 25.0 cm2 RA A4 area: 18.9 cm2 LAV(MOD-bp) Indexed: 46.5 ml/m2 LAV(MOD-sp2): 89.7 ml LAV(MOD-sp4): 75.7 ml Time Measurements MV dec time: 0.18 sec Doppler Measurements & Calculations MV E max bhavin: 112.6 cm/sec Lat Peak E' Bhavin: 5.8 cm/sec Med Peak E' Bhavin: 6.9 cm/sec MV A max bhavin: 41.3 cm/sec E/E' lat: 19.4 E/E' med: 16.3 MV E/A: 2.7 MV V2 max: 124.3 cm/sec MV P1/2t max bhavin: 124.3 cm/sec Ao V2 max: 135.2 cm/sec MV max P.2 mmHg MV P1/2t: 82.9 msec Ao max P.3 mmHg MV V2 mean: 53.3 cm/sec MV dec slope: 439.4 cm/sec2 Ao V2 mean: 81.5 cm/sec MV mean P.5 mmHg Ao mean P.2 mmHg MV V2 VTI: 33.0 cm MVA(P1/2t): 2.7 cm2 Ao V2 VTI: 32.8 cm LV V1 max: 99.6 cm/sec PA V2 max: 95.9 cm/sec PI dec slope: 166.4 cm/sec2 LV V1 max P.0 mmHg LV V1 mean P.0 mmHg LV V1 mean: 65.1 cm/sec LV V1 VTI: 26.9 cm TR max bhavin: 309.7 cm/sec TR max P.4 mmHg Interpretation Summary The study was technically difficult. Contrast injection was performed. Left ventricular systolic function is normal. The estimated ejection fraction is 65 %. The left atrium is moderately enlarged. There is mild to moderate mitral annular calcification. Extension of the mitral annular calcification onto the posterior mitral valve leaflet. Mild (1+) mitral valve insufficiency. Mild to moderate (1-2+) eccentric tricuspid valve insufficiency. Mild focal aortic valve calcification. Trivial pulmonic valve insufficiency. Right ventricular systolic pressure estimated to be 41 mmHg. Transmitral diastolic flow velocities suggest diastolic dysfunction (pseudonormal pattern). Ordering Physician: Cecilia Rodriguez Referring Physician: Cecilia Rodriguez Performed By: Petar Zavala RCS
--- NOTE | 2018-12-04 09:24 | STRESSREP_ITS ---
Stress Test Report Date: 12-04-18 Procedure: Pharmacologic stress nuclear imaging study Indications: Paroxysmal atrial fibrillation; shortness of breath/dyspnea Consent: Per the patient Procedure: The patient underwent pharmacologic (Regadenoson) evaluation with a peak heart rate of 77 beats per minute (50 %predicted maximal heart rate) and a peak blood pressure of 150/84 mmHg. The baseline ECG demonstrated sinus bradycardia. The peak pharmacologic ECG demonstrated no obvious ECG changes. There were no cardiac dysrhythmias pretest, during pharmacologic infusion, or recovery. There was no complaint of chest discomfort during pharmacologic infusion or recovery. The examination was discontinued secondary to completion of protocol. Impression: 1. Pharmacologic (Regadenoson) evaluation 2. Peak pharmacologic ECG with no obvious ECG changes. 3. There were no cardiac dysrhythmias pretest, during pharmacologic infusion, or recovery. 4. Nuclear images pending Myocardial perfusion imaging study: Technique: The patient was injected with 11.5 millicuries of technetium 99m Cardiolite and subsequently rest SPECT Cardiolite nuclear imaging was obtained in the horizontal long, vertical long, and short axis views. The patient underwent pharmacologic (Regadenoson) evaluation with a peak heart rate of 77 beats per minute (50 % percent predicted maximal heart rate) and a peak blood pressure of 150/84 mmHg. The patient was injected with 3.8 millicuries of technetium 99m Cardiolite and subsequently stress SPECT Cardiolite nuclear imaging was obtained in the horizontal long, vertical long, and short axis views. A gated Cardiolite study at peak stress was obtained. Interpretation: Rest and stress SPECT Cardiolite nuclear imaging status post realignment, normalization, and attenuation correction demonstrate the appearance of a small area of subtle diminished tracer uptake near the apical segments without significant change between rest and stress. There is end systolic thickening and brightening. The gated Cardiolite study demonstrates myocardial thickening and inward wall motion. The reported LVEF is 71 %. Impression: 1. Rest and stress SPECT Cardiolite nuclear imaging demonstrate a small area of subtle diminished tracer uptake near the apical segments without significant change between rest and stress appearing compatible with physiologic apical thinning with no myocardial perfusion changes considered diagnostic for associated stress-induced myocardial ischemia. 2. The gated Cardiolite study reports an LVEF of 71%. This note was generated with [employer] software. It may contain incorrect words, spelling, and punctuation that were not noted in checking the note before signing.
== END ==
PROVIDERS: Family Provider Nurse Practitioner; PCP Nurse Practitioner; Referring Provider Physician Assistant Medical; Visit Provider Physician Assistant Medical
DX: I25.10 Atherosclerotic heart disease of native coronary artery without angina pectoris (principal); I48.0 Paroxysmal atrial fibrillation; I12.9 Hypertensive chronic kidney disease with stage 1 through stage 4 chronic kidney disease, or unspecified chronic kidney disease; N18.3 Chronic kidney disease, stage 3 (moderate); E78.5 Hyperlipidemia, unspecified
CPT/HCPCS: 78452; 93017; 93225; 93226; 93306; A9500; Q9957; A4216; C8929; J2785

== ENCOUNTER 2018-12-22 11:02 | Outpatient (RCR) | payer MEDICARE, SELFPAY ==
[2018-11-17 15:27] VITALS: BMI 30.9
[2018-12-05 17:34] LABS: International Normalized Ratio 5.8
[2018-12-08 17:16] LABS: International Normalized Ratio 2.9; Prothrombin Time (Protime)PT. 30.8 SECONDS (11.7-14.9)
[2018-12-15 11:57] LABS: International Normalized Ratio 3.8; Prothrombin Time (Protime)PT. 37.5 SECONDS (11.7-14.9)
[2018-12-22 11:38] LABS: International Normalized Ratio 2.9; Prothrombin Time (Protime)PT. 30.1 SECONDS (11.7-14.9)
== END 2018-12-30 16:00 | disposition home or self-care (01) ==
LOC: LAB 11:02
PROVIDERS: Family Provider Nurse Practitioner; PCP Nurse Practitioner; Referring Provider Internal Medicine Cardiovascular Disease; Visit Provider Internal Medicine Cardiovascular Disease
DX: I48.0 Paroxysmal atrial fibrillation (principal); Z79.01 Long term (current) use of anticoagulants; E78.5 Hyperlipidemia, unspecified; Z79.899 Other long term (current) drug therapy
CPT/HCPCS: 36415; 85610

== ENCOUNTER 2019-01-23 14:01 | Outpatient (RCR) | payer MEDICARE, SELFPAY ==
[2018-12-31 11:56] VITALS: BMI 30.9
[2018-12-31 15:30] LABS: International Normalized Ratio 2.4
[2019-01-23 15:54] LABS: ALB/GLOB Ratio 0.7 RATIO (0.9-2.4); AST(SGOT) 31 U/L (15-37); Alanine Aminotransfer ALT/SGPT 24 U/L (13-56); Albumin, Serum 3.5 g/dL (3.2-5.0); Alkaline Phosphatase 80 U/L (45-117); Anion Gap 7 (5-15); BUN 37 mg/dL (7-18); BUN/Creat Ratio 19.8 RATIO (10-20); Calcium,Total 9.5 mg/dL (8.5-10.1); Chloride 101 mmol/L (98-107); Creatinine, Serum 1.87 mg/dL (0.55-1.02); EST Glomerular Filtration Rate 29 mL/min (>60); Est Glom Filt Rate - Afr Amer 35 mL/min (>60); Globulin 4.7 g/dL (2.2-4.2); Glucose 119 mg/dL (74-106); Protein, Total 8.2 g/dL (6.4-8.2); Sodium Level 135 mmol/L (136-145); Thyroid Stim Hormone (TSH) 1.06 uIU/mL (0.358-3.74)
[2019-01-23 17:21] LABS: Absolute Lymphocyte Count 1.99 X10^3/ul (0.83-4.51); Absolute Neutrophil Count 3.4 X10^3/uL (2.0-7.7); Basophil# 0.02 X10^3/uL; Basophil% 0.3 % (0-1); Eosinophil# 0.14 X10^3/uL; Eosinophils% 2.3 % (0-5); Hematocrit 37.6 % (37-47); Hemoglobin 12.1 g/dl (12.0-15.0); Lymphocyte # 1.99 X10^3/ul (4.0); Lymphocyte % 32.3 % (19-41); Mean Corp Hgb Conc 32.2 g/gl (32-36); Mean Corpuscular Volume 93.1 fL (81-99); Mean Platelet Vol. 9.8 fl (6.2-12.0); Monocyte# 0.56 X10^3/uL; Monocyte% 9.1 % (0-10); Neutrophil # 3.44 X10^3/uL (2.7-7.7); Neutrophil % 55.7 % (47-70); Platelet Count 306 K/mm3 (150-450); RBC Distribution Width CV 13.3 % (11.6-14.6); RBC Distribution Width SD 44.5 fl (35.1-43.9); Red Blood Count 4.04 M/mm3 (4.2-5.4); White Blood Count 6.2 K/mm3 (4.4-11.0)
[2019-01-23 17:25] LABS: POSITIVE COUNT NO; POSITIVE DIFFERENTIAL NO; POSITIVE MORPHOLOGY NO
[2019-01-23 17:27] LABS: International Normalized Ratio 3.2; Prothrombin Time (Protime)PT. 32.8 SECONDS (11.7-14.9)
== END 2019-01-23 15:00 | disposition home or self-care (01) ==
LOC: MTLAB 14:01
PROVIDERS: Family Provider Nurse Practitioner; PCP Nurse Practitioner; Referring Provider Internal Medicine Cardiovascular Disease; Visit Provider Internal Medicine Cardiovascular Disease
DX: I48.0 Paroxysmal atrial fibrillation (principal); Z79.01 Long term (current) use of anticoagulants
CPT/HCPCS: 36415; 80053; 84443; 85025; 85610

== ENCOUNTER 2019-02-18 13:35 | Outpatient (RCR) | payer MEDICARE, SELFPAY ==
[2019-01-31 07:54] VITALS: BMI 32.5
[2019-02-04 14:54] LABS: AST(SGOT) 16 U/L (15-37); Alanine Aminotransfer ALT/SGPT 21 U/L (13-56); Albumin, Serum 3.4 g/dL (3.2-5.0); Alkaline Phosphatase 96 U/L (45-117); Bilirubin, Direct < 0.05 mg/dL (0.00-0.30); Cholesterol 130 mg/dL (200); Globulin 4.7 g/dL (2.2-4.2); High Density Lipoprotein 45 mg/dL; Protein, Total 8.1 g/dL (6.4-8.2); Triglycerides 282 mg/dL; Very Low Density Lipoprotein 56 mg/dL (5-40)
[2019-02-09 11:40] LABS: Prothrombin Time (Protime)PT. 46.7 SECONDS (11.7-14.9)
[2019-02-11 12:26] LABS: International Normalized Ratio 2.9; Prothrombin Time (Protime)PT. 30.4 SECONDS (11.7-14.9)
[2019-02-18 14:36] LABS: International Normalized Ratio 1.4; Prothrombin Time (Protime)PT. 17.3 SECONDS (11.7-14.9)
== END 2019-02-18 14:00 | disposition home or self-care (01) ==
LOC: LAB 13:35
PROVIDERS: Family Provider Nurse Practitioner; PCP Nurse Practitioner; Referring Provider Internal Medicine Cardiovascular Disease; Visit Provider Internal Medicine Cardiovascular Disease
DX: I48.0 Paroxysmal atrial fibrillation (principal); Z79.01 Long term (current) use of anticoagulants; E78.5 Hyperlipidemia, unspecified
CPT/HCPCS: 36415; 80061; 80076; 85610

== ENCOUNTER → 2019-02-27 13:55 | Outpatient (CLI) | payer MEDICARE, SELFPAY ==
[2019-01-31 07:54] VITALS: BMI 32.5
[2019-02-27 14:52] LABS: International Normalized Ratio 2.9; Prothrombin Time (Protime)PT. 30.7 SECONDS (11.7-14.9)
[2019-02-27 15:25] LABS: AST(SGOT) 20 U/L (15-37); Alanine Aminotransfer ALT/SGPT 20 U/L (13-56); Albumin, Serum 3.3 g/dL (3.2-5.0); Alkaline Phosphatase 93 U/L (45-117); Bilirubin, Direct < 0.05 mg/dL (0.00-0.30); Cholesterol 135 mg/dL (200); Globulin 3.9 g/dL (2.2-4.2); High Density Lipoprotein 51 mg/dL; Protein, Total 7.2 g/dL (6.4-8.2); Triglycerides 248 mg/dL; Very Low Density Lipoprotein 50 mg/dL (5-40)
== END ==
PROVIDERS: Family Provider Nurse Practitioner; PCP Nurse Practitioner; Referring Provider Internal Medicine Cardiovascular Disease; Visit Provider Internal Medicine Cardiovascular Disease
DX: E78.5 Hyperlipidemia, unspecified (principal); I48.0 Paroxysmal atrial fibrillation; Z79.01 Long term (current) use of anticoagulants
CPT/HCPCS: 36415; 80061; 80076; 85610

== ENCOUNTER 2019-03-11 14:13 | Outpatient (RCR) | payer MEDICARE, SELFPAY ==
[2019-01-31 07:54] VITALS: BMI 32.5
[2019-03-11 15:18] LABS: International Normalized Ratio 2.3; Prothrombin Time (Protime)PT. 24.9 SECONDS (11.7-14.9)
== END 2019-04-01 16:00 | disposition home or self-care (01) ==
LOC: LAB 14:13
PROVIDERS: Family Provider Nurse Practitioner; PCP Nurse Practitioner; Referring Provider Internal Medicine Cardiovascular Disease; Visit Provider Internal Medicine Cardiovascular Disease
DX: I48.0 Paroxysmal atrial fibrillation (principal); Z79.01 Long term (current) use of anticoagulants
CPT/HCPCS: 36415; 85610

== ENCOUNTER → 2019-03-13 14:56 | Outpatient (CLI) | payer MEDICARE, SELFPAY ==
[2019-03-13 14:14] VITALS: BMI 30.8
[2019-03-13 16:18] LABS: Absolute Lymphocyte Count 2.13 X10^3/ul (0.83-4.51); Absolute Neutrophil Count 3.4 X10^3/uL (2.0-7.7); Basophil# 0.03 X10^3/uL; Basophil% 0.5 % (0-1); Eosinophil# 0.13 X10^3/uL; Eosinophils% 2.1 % (0-5); Hematocrit 36.6 % (37-47); Hemoglobin 11.7 g/dl (12.0-15.0); Lymphocyte # 2.13 X10^3/ul (4.0); Lymphocyte % 34.5 % (19-41); Mean Corpuscular Hgb 29.8 pg (27.0-32.0); Mean Corpuscular Volume 93.4 fL (81-99); Mean Platelet Vol. 9.6 fl (6.2-12.0); Monocyte# 0.44 X10^3/uL; Monocyte% 7.1 % (0-10); Neutrophil # 3.42 X10^3/uL (2.7-7.7); Neutrophil % 55.5 % (47-70); Platelet Count 302 K/mm3 (150-450); RBC Distribution Width CV 13.3 % (11.6-14.6); RBC Distribution Width SD 44.2 fl (35.1-43.9); Red Blood Count 3.92 M/mm3 (4.2-5.4); White Blood Count 6.2 K/mm3 (4.4-11.0)
[2019-03-13 16:19] LABS: Differential Indicated SCAN CRITERIA MET; POSITIVE COUNT NO; POSITIVE DIFFERENTIAL NO; POSITIVE MORPHOLOGY YES
[2019-03-13 16:25] LABS: Anion Gap 6 (5-15); BUN 18 mg/dL (7-18); BUN/Creat Ratio 10.7 RATIO (10-20); Calcium,Total 9.2 mg/dL (8.5-10.1); Chloride 103 mmol/L (98-107); Creatinine, Serum 1.69 mg/dL (0.55-1.02); EST Glomerular Filtration Rate 32 mL/min (>60); Est Glom Filt Rate - Afr Amer 39 mL/min (>60); Glucose 152 mg/dL (74-106); Magnesium 1.1 mg/dL (1.6-2.6); Potassium 4.7 mmol/L (3.5-5.1); Sodium Level 138 mmol/L (136-145)
[2019-03-13 16:42] LABS: Anisocytosis RARE; Platelet Estimate ADEQUATE (ADEQ)
[2019-03-13 16:43] LABS: Macrocytosis RARE
== END ==
PROVIDERS: Family Provider Nurse Practitioner; PCP Nurse Practitioner; Referring Provider Physician Assistant Medical; Visit Provider Physician Assistant Medical
DX: E78.5 Hyperlipidemia, unspecified (principal); I10 Essential (primary) hypertension; I25.10 Atherosclerotic heart disease of native coronary artery without angina pectoris; I48.0 Paroxysmal atrial fibrillation
CPT/HCPCS: 36415; 80048; 83735; 85025

== ENCOUNTER 2019-05-01 12:00 | Outpatient (RCR) | payer MEDICARE, SELFPAY ==
[2019-03-13 14:14] VITALS: BMI 30.8
[2019-04-03 14:16] LABS: International Normalized Ratio 2.2; Prothrombin Time (Protime)PT. 24.5 SECONDS (11.7-14.9)
[2019-05-01 12:47] LABS: International Normalized Ratio 2.6; Prothrombin Time (Protime)PT. 27.9 SECONDS (11.7-14.9)
== END 2019-05-01 13:00 | disposition home or self-care (01) ==
LOC: LAB 12:00
PROVIDERS: Family Provider Nurse Practitioner; PCP Nurse Practitioner; Referring Provider Internal Medicine Cardiovascular Disease; Visit Provider Internal Medicine Cardiovascular Disease
DX: I48.0 Paroxysmal atrial fibrillation (principal); Z79.01 Long term (current) use of anticoagulants
CPT/HCPCS: 36415; 85610

== ENCOUNTER 2019-05-29 14:23 | Outpatient (RCR) | payer MEDICARE, SELFPAY ==
[2019-03-13 14:14] VITALS: BMI 30.8
[2019-05-29 15:36] LABS: International Normalized Ratio 3.1; Prothrombin Time (Protime)PT. 31.9 SECONDS (11.7-14.9)
== END 2019-05-29 16:00 | disposition home or self-care (01) ==
LOC: LAB 14:23
PROVIDERS: Family Provider Nurse Practitioner; PCP Nurse Practitioner; Referring Provider Internal Medicine Cardiovascular Disease; Visit Provider Internal Medicine Cardiovascular Disease
DX: I48.0 Paroxysmal atrial fibrillation (principal); Z79.01 Long term (current) use of anticoagulants
CPT/HCPCS: 36415; 85610

== ENCOUNTER 2019-06-22 11:27 | Outpatient (RCR) | payer MEDICARE, SELFPAY ==
[2019-03-13 14:14] VITALS: BMI 30.8
[2019-06-04 13:34] VITALS: BMI 29.0
[2019-06-22 11:55] LABS: International Normalized Ratio 3.1; Prothrombin Time (Protime)PT. 32.3 SECONDS (11.7-14.9)
== END 2019-06-22 18:00 | disposition home or self-care (01) ==
LOC: LAB 11:27
PROVIDERS: Family Provider Nurse Practitioner; PCP Nurse Practitioner; Referring Provider Internal Medicine Cardiovascular Disease; Visit Provider Internal Medicine Cardiovascular Disease
DX: I48.0 Paroxysmal atrial fibrillation (principal); Z79.01 Long term (current) use of anticoagulants
CPT/HCPCS: 36415; 85610

== ENCOUNTER 2019-07-03 14:05 | Outpatient (RCR) | payer MEDICARE, SELFPAY ==
[2019-06-04 13:34] VITALS: BMI 29.0
[2019-07-03 16:02] LABS: Absolute Lymphocyte Count 2.55 X10^3/uL (0.83-4.51); Absolute Neutrophil Count 5.2 X10^3/uL (2.0-7.7); Basophil# 0.05 X10^3/uL; Basophil% 0.6 % (0-1); Eosinophil# 0.14 X10^3/uL; Eosinophils% 1.7 % (0-5); Hematocrit 35.1 % (37-47); Hemoglobin 10.8 g/dL (12.0-15.0); Lymphocyte # 2.55 X10^3/ul (4.0); Lymphocyte % 30.5 % (19-41); Mean Corp Hgb Conc 30.8 g/dL (32-36); Mean Corpuscular Hgb 30.3 pg (27.0-32.0); Mean Corpuscular Volume 98.6 fL (81-99); Mean Platelet Vol. 10.3 fl (6.2-12.0); Monocyte# 0.42 X10^3/uL; NRBC Flagged by Analyzer 0 % (0-5); Neutrophil # 5.16 X10^3/uL (2.7-7.7); Neutrophil % 61.8 % (47-70); Platelet Count 416 K/mm3 (150-450); RBC Distribution Width CV 13.6 % (11.6-14.6); Red Blood Count 3.56 M/mm3 (4.2-5.4); White Blood Count 8.4 K/mm3 (4.4-11.0)
[2019-07-03 16:04] LABS: International Normalized Ratio 3.2; Prothrombin Time (Protime)PT. 33.1 SECONDS (11.7-14.9)
[2019-07-03 16:25] LABS: ALB/GLOB Ratio 0.8 RATIO (0.9-2.4); AST(SGOT) 18 U/L (15-37); Alanine Aminotransfer ALT/SGPT 14 U/L (13-56); Alkaline Phosphatase 83 U/L (45-117); Anion Gap 10 (5-15); BUN 19 mg/dL (7-18); BUN/Creat Ratio 9.3 RATIO (10-20); Calcium,Total 9.3 mg/dL (8.5-10.1); Chloride 100 mmol/L (98-107); Creatinine, Serum 2.05 mg/dL (0.55-1.02); EST Glomerular Filtration Rate 26 mL/min (>60); Est Glom Filt Rate - Afr Amer 31 mL/min (>60); Globulin 3.8 g/dL (2.2-4.2); Glucose 109 mg/dL (74-106); Potassium 5.2 mmol/L (3.5-5.1); Protein, Total 6.8 g/dL (6.4-8.2); Sodium Level 137 mmol/L (136-145)
[2019-07-03 19:03] LABS: Bilirubin, Direct 0.11 mg/dL (0.00-0.30)
[2019-07-05 20:07] LABS: HEPATITIS B SURFACE AG Negative (Negative); Hepatitis A AB, Total Positive (Negative); Hepatitis B Core AB IgM Negative (Negative); Hepatitis B Core Ab Total Negative (Negative); Hepatitis C Ab 0.3 s/co ratio (0.0-0.9)
[2019-07-06 12:47] LABS: Hep B Surface Antibodies Non Reactive (.)
[2019-07-06 14:41] LABS: Hepatitis A IgM Antibody Negative (Negative)
== END 2019-07-03 18:00 | disposition home or self-care (01) ==
LOC: LAB 14:05
PROVIDERS: Family Provider Nurse Practitioner; PCP Nurse Practitioner; Referring Provider Internal Medicine Cardiovascular Disease; Visit Provider Internal Medicine Cardiovascular Disease
DX: I48.0 Paroxysmal atrial fibrillation (principal); Z79.01 Long term (current) use of anticoagulants; H92.09 Otalgia, unspecified ear; R41.82 Altered mental status, unspecified
CPT/HCPCS: 80053; 80076; 82248; 84443; 85025; 85610; 86704; 86705; 86706; 86708; 86709; 86803; 87340

== ENCOUNTER → 2019-07-11 08:43 | Outpatient (CLI) | payer MEDICARE, SELFPAY ==
[2019-06-04 13:34] VITALS: BMI 29.0
--- NOTE | 2019-07-11 08:45 | CT_ITS ---
STUDY: CT BRAIN WITHOUT CONTRAST REASON FOR EXAM: Female, 69 years old. Change of mental status with short-term memory loss RADIATION DOSAGE (If Supplied By Facility): CTDIvol = ( 44.99 ) mGy, DLP = ( 745.49 ) mGycm TECHNIQUE: Transaxial CT imaging of the brain was performed without administration of intravenous contrast material. Individualized dose optimization techniques were used for this CT. COMPARISON: 05/11/2015 FINDINGS: Normal soft tissue structures. Normal calvarium. There is mild cerebral atrophy with widening of the extra-axial spaces and ventricular dilatation. There are areas of decreased attenuation within the white matter tracts of the supratentorial brain, consistent with microvascular disease changes. Normal basal ganglia and thalami. Normal brainstem. Normal cerebellum. There is no intracranial hemorrhage. There are no findings of an acute ischemic infarction. There is atherosclerosis of the carotid siphons and left vertebral artery. Normal visualized paranasal sinuses. CT/Brain/Head without Contrast IMPRESSION: 1. No intracranial hemorrhage or mass effect. 2. Central parenchymal volume loss. White matter changes that are nonspecific but most commonly associated with chronic small vessel ischemic disease. Overall similar appearance since 2014. Electronically Signed: Toño Medina MD ([place]) at 14:56 EST , Service support ,
== END ==
PROVIDERS: Family Provider Nurse Practitioner; PCP Nurse Practitioner; Referring Provider Nurse Practitioner; Visit Provider Nurse Practitioner
DX: R41.82 Altered mental status, unspecified (principal)
CPT/HCPCS: 70450

== ENCOUNTER → 2019-08-03 12:44 | Outpatient (CLI) | payer MEDICARE, SELFPAY ==
[2019-06-04 13:34] VITALS: BMI 29.0
[2019-08-03 12:54] LABS: Absolute Lymphocyte Count 1.75 X10^3/uL (0.83-4.51); Absolute Neutrophil Count 3.8 X10^3/uL (2.0-7.7); Basophil# 0.03 X10^3/uL; Basophil% 0.5 % (0-1); Eosinophil# 0.09 X10^3/uL; Eosinophils% 1.5 % (0-5); Hematocrit 34.1 % (37-47); Lymphocyte # 1.75 X10^3/ul (4.0); Lymphocyte % 28.6 % (19-41); Mean Corp Hgb Conc 32.3 g/dL (32-36); Mean Corpuscular Hgb 30.8 pg (27.0-32.0); Mean Corpuscular Volume 95.5 fL (81-99); Mean Platelet Vol. 10.2 fl (6.2-12.0); Monocyte# 0.42 X10^3/uL; Monocyte% 6.9 % (0-10); NRBC Flagged by Analyzer 0 % (0-5); Neutrophil # 3.81 X10^3/uL (2.7-7.7); Neutrophil % 62.2 % (47-70); Platelet Count 298 K/mm3 (150-450); RBC Distribution Width CV 14.5 % (11.6-14.6); RBC Distribution Width SD 50.4 fl (35.1-43.9); Red Blood Count 3.57 M/mm3 (4.2-5.4); White Blood Count 6.1 K/mm3 (4.4-11.0)
[2019-08-03 13:08] LABS: International Normalized Ratio 2.4; Prothrombin Time (Protime)PT. 26.4 SECONDS (11.7-14.9)
[2019-08-03 13:30] LABS: CPK Total, Creatine Kinase 82 U/L (26-192); Thyroid Stim Hormone (TSH) 0.04 uIU/mL (0.358-3.74)
[2019-08-04 12:54] LABS: Myoglobin, Serum 79 ng/mL (25-58)
== END ==
PROVIDERS: Family Provider Nurse Practitioner; PCP Nurse Practitioner; Referring Provider Nurse Practitioner; Visit Provider Nurse Practitioner
DX: R94.31 Abnormal electrocardiogram [ECG] [EKG] (principal); I10 Essential (primary) hypertension; E03.9 Hypothyroidism, unspecified; Z79.01 Long term (current) use of anticoagulants
CPT/HCPCS: 82550; 83874; 84443; 84484; 85025; 85610

== ENCOUNTER → 2019-08-05 12:37 | Outpatient (CLI) | payer MEDICARE, SELFPAY ==
[2019-06-04 13:34] VITALS: BMI 29.0
--- NOTE | 2019-08-05 12:40 | CDU_ITS ---
Reason For Study: Carotid Bruit Rt. Velocities/BP Lt. Velocities/BP Prox CCA 45/8 cm/sec. Prox CCA 87/12 cm/sec. Mid CCA 65/9 cm/sec. Mid CCA 72/12 cm/sec. Dist CCA 40/7 cm/sec. Dist CCA 42/7 cm/sec. Prox ICA 52/15 cm/sec. Prox ICA 61/12 cm/sec. Mid ICA 127/21 cm/sec. Mid ICA 72/15 cm/sec. Dist ICA 63/13 cm/sec. Dist ICA 94/14 cm/sec. Rt. ICA/CCA = 2.0. Lt. ICA/CCA = 1.3. Prox ECA 76/10 cm/sec. Prox ECA 81/8 cm/sec. Rt. Vert. 67/8 cm/sec. Lt. Vert. 39/8 cm/sec. Right Extracranial There is intimal thickening but no significant atherosclerotic plaque noted in the right common carotid artery. There is heterogeneous, irregular atherosclerotic plaque noted in the right internal carotid artery. The right internal carotid artery is very tortuous. There is intimal thickening but no significant atherosclerotic plaque noted in the right external carotid artery. Antegrade flow is noted in the right vertebral artery. Left Extracranial There is heterogeneous, irregular atherosclerotic plaque noted in the left common carotid artery. There is heterogeneous, irregular atherosclerotic plaque noted in the left internal carotid artery. The left internal carotid artery is very tortuous. There is intimal thickening but no significant atherosclerotic plaque noted in the left external carotid artery. Antegrade flow is noted in the left vertebral artery. Procedure Carotid Duplex 16195. Technically difficult study due to ICA tortuosity. Exam performed in department. Interpretation Summary Moderate (50-69%) stenosis right extracranial internal carotid. Mild (<50%) stenosis left extracranial internal carotid. Flow within the vertebral arteries is antegrade bilaterally. Ordering Physician: Elsa Chopra Referring Physician: Elsa Chopra Performed By: Yadi Muniz, JAIRO, RVT
== END ==
PROVIDERS: Family Provider Nurse Practitioner; PCP Nurse Practitioner; Referring Provider Nurse Practitioner; Visit Provider Nurse Practitioner
DX: R09.89 Other specified symptoms and signs involving the circulatory and respiratory systems (principal)
CPT/HCPCS: 93880

== ENCOUNTER 2019-10-27 14:31 | Outpatient (RCR) | payer MEDICARE, SELFPAY ==
[2019-06-04 13:34] VITALS: BMI 29.0
[2019-10-14 14:25] LABS: International Normalized Ratio 1.4
[2019-10-27 15:25] LABS: International Normalized Ratio 2.2; Prothrombin Time (Protime)PT. 24.8 SECONDS (11.7-14.9)
== END 2019-10-27 18:00 | disposition home or self-care (01) ==
LOC: LAB 14:31
PROVIDERS: Family Provider Nurse Practitioner; PCP Nurse Practitioner; Referring Provider Internal Medicine Cardiovascular Disease; Visit Provider Internal Medicine Cardiovascular Disease
DX: I48.0 Paroxysmal atrial fibrillation (principal); Z79.01 Long term (current) use of anticoagulants
CPT/HCPCS: 36415; 85610

== ENCOUNTER 2019-11-24 12:05 | Outpatient (RCR) | payer MEDICARE, SELFPAY ==
[2019-06-04 13:34] VITALS: BMI 29.0
[2019-11-11 12:44] LABS: International Normalized Ratio 2.1; Prothrombin Time (Protime)PT. 23.2 SECONDS (11.7-14.9)
[2019-11-24 13:06] LABS: International Normalized Ratio 2.1; Prothrombin Time (Protime)PT. 23.2 SECONDS (11.7-14.9)
== END 2019-11-24 18:00 | disposition home or self-care (01) ==
LOC: LAB 12:05
PROVIDERS: Family Provider Nurse Practitioner; PCP Nurse Practitioner; Referring Provider Internal Medicine Cardiovascular Disease; Visit Provider Internal Medicine Cardiovascular Disease
DX: I48.0 Paroxysmal atrial fibrillation (principal); Z79.01 Long term (current) use of anticoagulants
CPT/HCPCS: 36415; 85610

== ENCOUNTER → 2019-12-08 11:05 | Outpatient (CLI) | payer MEDICARE, SELFPAY ==
[2019-06-04 13:34] VITALS: BMI 29.0
[2019-12-08 11:35] LABS: Potassium 4.5 mmol/L (3.5-5.1)
== END ==
PROVIDERS: PCP Nurse Practitioner; Referring Provider Nurse Practitioner; Visit Provider Nurse Practitioner
DX: E87.5 Hyperkalemia (principal)
CPT/HCPCS: 84132

== ENCOUNTER 2019-12-24 11:29 | Outpatient (RCR) | payer MEDICARE, SELFPAY ==
[2019-06-04 13:34] VITALS: BMI 29.0
[2019-12-18 10:29] VITALS: BMI 30.1
[2019-12-24 12:10] LABS: Prothrombin Time (Protime)PT. 35.1 SECONDS (11.7-14.9)
[2019-12-24 12:14] LABS: International Normalized Ratio 3.5
== END 2019-12-31 18:00 | disposition home or self-care (01) ==
LOC: LAB 11:29
PROVIDERS: Family Provider Nurse Practitioner; PCP Nurse Practitioner; Referring Provider Internal Medicine Cardiovascular Disease; Visit Provider Internal Medicine Cardiovascular Disease
DX: I48.0 Paroxysmal atrial fibrillation (principal); Z79.01 Long term (current) use of anticoagulants
CPT/HCPCS: 36415; 85610

== ENCOUNTER 2020-01-18 13:21 | Outpatient (RCR) | payer MEDICARE, SELFPAY ==
[2019-12-18 10:29] VITALS: BMI 30.1
[2020-01-18 14:20] LABS: International Normalized Ratio 3.2; Prothrombin Time (Protime)PT. 32.3 SECONDS (11.7-14.9)
== END 2020-01-18 18:00 | disposition home or self-care (01) ==
LOC: LAB 13:21
PROVIDERS: Family Provider Nurse Practitioner; PCP Nurse Practitioner; Referring Provider Internal Medicine Cardiovascular Disease; Visit Provider Internal Medicine Cardiovascular Disease
DX: I48.0 Paroxysmal atrial fibrillation (principal); Z79.01 Long term (current) use of anticoagulants
CPT/HCPCS: 36415; 85610

== ENCOUNTER → 2020-02-15 | Outpatient (CLI) | payer MEDICARE, SELFPAY ==
[2019-12-18 10:29] VITALS: BMI 30.1
== END | disposition home or self-care (01) ==
LOC: LABSPEC 16:04
PROVIDERS: PCP Nurse Practitioner; Visit Provider Ophthalmology
DX: Z22.321 Carrier or suspected carrier of Methicillin susceptible Staphylococcus aureus (principal)
CPT/HCPCS: 87077; 87081

== ENCOUNTER 2020-02-16 13:54 | Outpatient (RCR) | payer MEDICARE, SELFPAY ==
[2019-12-18 10:29] VITALS: BMI 30.1
[2020-02-01 11:52] LABS: Prothrombin Time (Protime)PT. 21.8 SECONDS (11.7-14.9)
[2020-02-16 14:52] LABS: Absolute Lymphocyte Count 1.43 X10^3/uL (0.83-4.51); Absolute Neutrophil Count 5.7 X10^3/uL (2.0-7.7); Basophil# 0.04 X10^3/uL; Basophil% 0.5 % (0-1); Eosinophil# 0.17 X10^3/uL; Eosinophils% 2.1 % (0-5); Hematocrit 33.4 % (37-47); Hemoglobin 10.3 g/dL (12.0-15.0); Lymphocyte # 1.43 X10^3/ul (4.0); Lymphocyte % 17.9 % (19-41); Mean Corp Hgb Conc 30.8 g/dL (32-36); Mean Corpuscular Hgb 30.9 pg (27.0-32.0); Mean Corpuscular Volume 100.3 fL (81-99); Mean Platelet Vol. 9.6 fl (6.2-12.0); Monocyte# 0.55 X10^3/uL; Monocyte% 6.9 % (0-10); NRBC Flagged by Analyzer 0 % (0-5); Neutrophil # 5.73 X10^3/uL (2.7-7.7); Neutrophil % 71.5 % (47-70); Platelet Count 274 K/mm3 (150-450); RBC Distribution Width CV 13.6 % (11.6-14.6); RBC Distribution Width SD 49.4 fl (35.1-43.9); Red Blood Count 3.33 M/mm3 (4.2-5.4)
[2020-02-16 15:02] LABS: International Normalized Ratio 2.3; Prothrombin Time (Protime)PT. 25.2 SECONDS (11.7-14.9)
[2020-02-16 15:22] LABS: Anion Gap 6 (5-15); BUN 25 mg/dL (7-18); BUN/Creat Ratio 13.4 RATIO (10-20); Calcium,Total 9.3 mg/dL (8.5-10.1); Chloride 97 mmol/L (98-107); Creatinine, Serum 1.86 mg/dL (0.55-1.02); EST Glomerular Filtration Rate 29 mL/min (>60); Est Glom Filt Rate - Afr Amer 35 mL/min (>60); Glucose 151 mg/dL (74-106); Magnesium 2.7 mg/dL (1.6-2.6); Potassium 5.2 mmol/L (3.5-5.1); Sodium Level 136 mmol/L (136-145)
== END 2020-02-16 18:00 | disposition home or self-care (01) ==
LOC: LAB 13:54
PROVIDERS: Nurse Practitioner Family; Family Provider Nurse Practitioner; PCP Nurse Practitioner; Referring Provider Internal Medicine Cardiovascular Disease; Visit Provider Internal Medicine Cardiovascular Disease
DX: I48.0 Paroxysmal atrial fibrillation (principal); Z79.01 Long term (current) use of anticoagulants
CPT/HCPCS: 36415; 80048; 83735; 85025; 85610

== ENCOUNTER 2020-03-28 15:09 | Outpatient (RCR) | payer MEDICARE, SELFPAY ==
[2020-02-16 14:47] VITALS: BMI 29.0
[2020-03-28 16:27] LABS: Anion Gap 9 (5-15); BUN 23 mg/dL (7-18); BUN/Creat Ratio 12.8 RATIO (10-20); Calcium,Total 9.2 mg/dL (8.5-10.1); Chloride 98 mmol/L (98-107); EST Glomerular Filtration Rate 30 mL/min (>60); Est Glom Filt Rate - Afr Amer 36 mL/min (>60); Glucose 209 mg/dL (74-106); Magnesium 2.1 mg/dL (1.6-2.6); Potassium 4.4 mmol/L (3.5-5.1); Sodium Level 136 mmol/L (136-145)
[2020-03-28 16:38] LABS: International Normalized Ratio 2.5; Prothrombin Time (Protime)PT. 26.2 SECONDS (11.7-14.9)
== END 2020-03-28 18:00 | disposition home or self-care (01) ==
LOC: LAB 15:09
PROVIDERS: Nurse Practitioner Family; Family Provider Nurse Practitioner; PCP Nurse Practitioner; Referring Provider Internal Medicine Cardiovascular Disease; Visit Provider Internal Medicine Cardiovascular Disease
DX: I48.0 Paroxysmal atrial fibrillation (principal); Z79.01 Long term (current) use of anticoagulants; I12.9 Hypertensive chronic kidney disease with stage 1 through stage 4 chronic kidney disease, or unspecified chronic kidney disease; N18.2 Chronic kidney disease, stage 2 (mild); E78.5 Hyperlipidemia, unspecified; E83.41 Hypermagnesemia; I25.10 Atherosclerotic heart disease of native coronary artery without angina pectoris
CPT/HCPCS: 36415; 80048; 83735; 85610

== ENCOUNTER → 2020-04-19 14:44 | Outpatient (CLI) | payer MEDICARE, SELFPAY ==
[2020-02-16 14:47] VITALS: BMI 29.0
--- NOTE | 2020-04-19 14:49 | RAD_ITS ---
HISTORY: KNEE PAIN ADDITIONAL HISTORY: None provided. EXAMINATION/TECHNIQUE: XR Knee 1 or 2 Views Left Number of images including paperwork: 2 COMPARISON: None FINDINGS: BONES: No acute fracture. Mineralization appears decreased. JOINTS: No subluxation. Moderate to severe tricompartmental degenerative changes. SOFT TISSUES: No distinct foreign body. Anterior soft tissue swelling. Vascular calcification. RAD/Knee 1 or 2 Views IMPRESSION: Degenerative changes without acute osseous abnormality. Anterior soft tissue swelling. at 2340 Reported and signed by: Sadaf Carr MD Electronically Signed: Sadaf Carr MD at 23:40 EDT Tel , Service support ,
== END ==
PROVIDERS: PCP Nurse Practitioner; Referring Provider Nurse Practitioner; Visit Provider Nurse Practitioner
DX: M25.562 Pain in left knee (principal)
CPT/HCPCS: 73560

== ENCOUNTER 2020-06-28 15:05 | Outpatient (RCR) | payer MEDICARE, SELFPAY ==
[2020-02-16 14:47] VITALS: BMI 29.0
[2020-04-27 13:18] VITALS: BMI 29.0
[2020-06-28 15:56] LABS: International Normalized Ratio 1.3; Prothrombin Time (Protime)PT. 15.7 SECONDS (11.7-14.9)
== END 2020-06-28 18:00 | disposition home or self-care (01) ==
LOC: LAB 15:05
PROVIDERS: Family Provider Nurse Practitioner; PCP Nurse Practitioner; Referring Provider Internal Medicine Cardiovascular Disease; Visit Provider Internal Medicine Cardiovascular Disease
DX: I48.0 Paroxysmal atrial fibrillation (principal); Z79.01 Long term (current) use of anticoagulants
CPT/HCPCS: 36415; 85610

== ENCOUNTER 2020-08-01 13:18 | Outpatient (RCR) | payer MEDICARE, SELFPAY ==
[2020-04-27 13:18] VITALS: BMI 29.0
[2020-07-04 15:53] LABS: International Normalized Ratio 1.7; Prothrombin Time (Protime)PT. 19.1 SECONDS (11.7-14.9)
[2020-07-15 16:31] LABS: International Normalized Ratio 2.8; Prothrombin Time (Protime)PT. 28.7 SECONDS (11.7-14.9)
[2020-08-01 14:38] LABS: International Normalized Ratio 2.9; Prothrombin Time (Protime)PT. 30.3 SECONDS (11.7-14.9)
== END 2020-08-01 18:00 | disposition home or self-care (01) ==
LOC: LAB 13:18
PROVIDERS: Family Provider Nurse Practitioner; PCP Nurse Practitioner; Referring Provider Internal Medicine Cardiovascular Disease; Visit Provider Internal Medicine Cardiovascular Disease
DX: I48.0 Paroxysmal atrial fibrillation (principal); Z79.01 Long term (current) use of anticoagulants
CPT/HCPCS: 36415; 85610

== ENCOUNTER 2020-08-31 15:23 | Outpatient (RCR) | payer MEDICARE, SELFPAY ==
[2020-04-27 13:18] VITALS: BMI 29.0
[2020-08-31 16:54] LABS: International Normalized Ratio 1.5; Prothrombin Time (Protime)PT. 17.7 SECONDS (11.7-14.9)
== END 2020-08-31 18:00 | disposition home or self-care (01) ==
LOC: LAB 15:23
PROVIDERS: Family Provider Nurse Practitioner; PCP Nurse Practitioner; Referring Provider Internal Medicine Cardiovascular Disease; Visit Provider Internal Medicine Cardiovascular Disease
DX: I48.0 Paroxysmal atrial fibrillation (principal); Z79.01 Long term (current) use of anticoagulants
CPT/HCPCS: 36415; 85610

== ENCOUNTER 2020-09-28 12:00 | Outpatient (RCR) | payer MEDICARE, SELFPAY ==
[2020-04-27 13:18] VITALS: BMI 29.0
[2020-09-08 17:19] LABS: International Normalized Ratio 1.8; Prothrombin Time (Protime)PT. 20.6 SECONDS (11.7-14.9)
[2020-09-28 13:51] LABS: International Normalized Ratio 2.9; Prothrombin Time (Protime)PT. 30.2 SECONDS (11.7-14.9)
== END 2020-09-28 18:00 | disposition home or self-care (01) ==
LOC: LAB 12:00
PROVIDERS: Family Provider Nurse Practitioner; PCP Nurse Practitioner; Referring Provider Internal Medicine Cardiovascular Disease; Visit Provider Internal Medicine Cardiovascular Disease
DX: I48.0 Paroxysmal atrial fibrillation (principal); Z79.01 Long term (current) use of anticoagulants
CPT/HCPCS: 36415; 85610

== ENCOUNTER 2020-11-15 16:15 | Outpatient (RCR) | payer MEDICARE, SELFPAY ==
[2020-04-27 13:18] VITALS: BMI 29.0
[2020-11-04 16:31] LABS: International Normalized Ratio 3.9
[2020-11-15 17:18] LABS: International Normalized Ratio 3.5; Prothrombin Time (Protime)PT. 34.9 SECONDS (11.7-14.9)
== END 2020-11-15 18:00 | disposition home or self-care (01) ==
LOC: LAB 16:15
PROVIDERS: Family Provider Nurse Practitioner; PCP Nurse Practitioner; Referring Provider Internal Medicine Cardiovascular Disease; Visit Provider Internal Medicine Cardiovascular Disease
DX: Z79.01 Long term (current) use of anticoagulants (principal); I48.0 Paroxysmal atrial fibrillation
CPT/HCPCS: 36415; 85610

== ENCOUNTER 2020-12-28 13:37 | Outpatient (RCR) | payer MEDICARE, SELFPAY ==
[2020-04-27 13:18] VITALS: BMI 29.0
[2020-12-07 15:26] LABS: International Normalized Ratio 1.3; Prothrombin Time (Protime)PT. 15.9 SECONDS (11.7-14.9)
[2020-12-15 17:22] LABS: International Normalized Ratio 1.9
[2020-12-28 15:29] LABS: International Normalized Ratio 2.3; Prothrombin Time (Protime)PT. 24.3 SECONDS (11.7-14.9)
== END 2020-12-28 18:00 | disposition home or self-care (01) ==
LOC: LAB 13:37
PROVIDERS: Family Provider Nurse Practitioner; PCP Nurse Practitioner; Referring Provider Internal Medicine Cardiovascular Disease; Visit Provider Internal Medicine Cardiovascular Disease
DX: I48.0 Paroxysmal atrial fibrillation (principal); Z79.01 Long term (current) use of anticoagulants
CPT/HCPCS: 36415; 85610

== ENCOUNTER 2021-01-24 16:02 | Outpatient (RCR) | payer MEDICARE, SELFPAY ==
[2020-04-27 13:18] VITALS: BMI 29.0
[2021-01-24 17:17] LABS: International Normalized Ratio 2.6; Prothrombin Time (Protime)PT. 26.9 SECONDS (11.7-14.9)
== END 2021-01-24 18:00 | disposition home or self-care (01) ==
LOC: LAB 16:02
PROVIDERS: Family Provider Nurse Practitioner; PCP Nurse Practitioner; Referring Provider Internal Medicine Cardiovascular Disease; Visit Provider Internal Medicine Cardiovascular Disease
DX: I48.0 Paroxysmal atrial fibrillation (principal); Z79.01 Long term (current) use of anticoagulants
CPT/HCPCS: 36415; 85610

== ENCOUNTER 2021-03-10 13:51 | Outpatient (RCR) | payer MEDICARE, SELFPAY ==
[2020-04-27 13:18] VITALS: BMI 29.0
[2021-03-10 13:14] VITALS: BMI 34.6
[2021-03-10 14:26] LABS: INR Fingerstick 2.6; Prothrombin Time Fingerstick 28.8 SEC (11.9-14.4)
== END 2021-03-10 18:00 | disposition home or self-care (01) ==
LOC: LAB 13:51
PROVIDERS: Family Provider Nurse Practitioner; PCP Nurse Practitioner; Referring Provider Internal Medicine Cardiovascular Disease; Visit Provider Internal Medicine Cardiovascular Disease
DX: I48.0 Paroxysmal atrial fibrillation (principal); Z79.01 Long term (current) use of anticoagulants
CPT/HCPCS: 36416; 85610

== ENCOUNTER 2021-04-04 15:13 | Outpatient (RCR) | payer MEDICARE, SELFPAY ==
[2021-04-04 15:26] LABS: INR Fingerstick 2.5; Prothrombin Time Fingerstick 27.7 SEC (11.9-14.4)
== END 2021-04-04 18:00 | disposition home or self-care (01) ==
LOC: LAB 15:13
PROVIDERS: Family Provider Nurse Practitioner; PCP Nurse Practitioner; Referring Provider Internal Medicine Cardiovascular Disease; Visit Provider Internal Medicine Cardiovascular Disease
DX: I48.0 Paroxysmal atrial fibrillation (principal); Z79.01 Long term (current) use of anticoagulants
CPT/HCPCS: 36416; 85610

== ENCOUNTER 2021-05-03 13:27 | Outpatient (RCR) | payer MEDICARE, SELFPAY ==
[2021-05-02 21:48] VITALS: BMI 34.6
[2021-05-04 09:51] LABS: INR Fingerstick 2.4; Prothrombin Time Fingerstick 27.3 SEC (11.9-14.4)
== END 2021-05-03 18:00 | disposition home or self-care (01) ==
LOC: LAB 13:27
PROVIDERS: Family Provider Nurse Practitioner; PCP Nurse Practitioner; Referring Provider Internal Medicine Cardiovascular Disease; Visit Provider Internal Medicine Cardiovascular Disease
DX: I48.0 Paroxysmal atrial fibrillation (principal); Z79.01 Long term (current) use of anticoagulants
CPT/HCPCS: 36416; 85610

== ENCOUNTER → 2021-07-12 09:39 | Day surgery (SDC) | payer MEDICARE, SELFPAY ==
[2021-07-12 16:32] LABS: Hematocrit 30.9 % (37-47); Hemoglobin 9.7 g/dL (12.0-15.0); Mean Corp Hgb Conc 31.4 g/dL (32-36); Mean Corpuscular Hgb 31.1 pg (27.0-32.0); Mean Platelet Vol. 9.8 fl (6.2-12.0); Platelet Count 279 K/mm3 (150-450); RBC Distribution Width CV 14.2 % (11.6-14.6); RBC Distribution Width SD 50.3 fl (35.1-43.9); Red Blood Count 3.12 M/mm3 (4.2-5.4); White Blood Count 7.7 K/mm3 (4.4-11.0)
[2021-07-12 16:46] LABS: Anion Gap 7 (5-15); BUN 18 mg/dL (7-18); BUN/Creat Ratio 9.3 RATIO (10-20); Calcium,Total 8.8 mg/dL (8.5-10.1); Chloride 98 mmol/L (98-107); Creatinine, Serum 1.94 mg/dL (0.55-1.02); EST Glomerular Filtration Rate 27 mL/min (>60); Est Glom Filt Rate - Afr Amer 33 mL/min (>60); Glucose 191 mg/dL (74-106); Magnesium 2.1 mg/dL (1.6-2.6); Potassium 3.1 mmol/L (3.5-5.1); Sodium Level 135 mmol/L (136-145)
[2021-07-12 16:48] LABS: Hemoglobin A1c 6.3 % (3.8-5.6)
[2021-07-13 09:07] LABS: Absolute Lymphocyte Count 1.44 X10^3/uL (0.83-4.51); Absolute Neutrophil Count 5.6 X10^3/uL (2.0-7.7); Basophil# 0.04 X10^3/uL; Basophil% 0.5 % (0-1); Eosinophil# 0.14 X10^3/uL; Eosinophils% 1.8 % (0-5); Lymphocyte # 1.44 X10^3/ul (0.83-4.51); Lymphocyte % 18.9 % (19-41); Monocyte# 0.34 X10^3/uL; Monocyte% 4.5 % (0-10); NRBC Flagged by Analyzer 0 % (0-5); Neutrophil # 5.63 X10^3/uL (2.7-7.7); Neutrophil % 73.8 % (47-70)
[2021-07-21 13:38] LABS: Absolute Lymphocyte Count 1.46 X10^3/uL (0.83-4.51); Absolute Neutrophil Count 5.5 X10^3/uL (2.0-7.7); Basophil# 0.04 X10^3/uL; Basophil% 0.5 % (0-1); Eosinophils% 1.3 % (0-5); Hematocrit 35.2 % (37-47); Hemoglobin 11.3 g/dL (12.0-15.0); Lymphocyte # 1.46 X10^3/ul (0.83-4.51); Lymphocyte % 19.4 % (19-41); Mean Corp Hgb Conc 32.1 g/dL (32-36); Mean Corpuscular Hgb 31.5 pg (27.0-32.0); Mean Corpuscular Volume 98.1 fL (81-99); Mean Platelet Vol. 9.8 fl (6.2-12.0); Monocyte% 5.3 % (0-10); NRBC Flagged by Analyzer 0 % (0-5); Neutrophil # 5.49 X10^3/uL (2.7-7.7); Neutrophil % 72.8 % (47-70); Platelet Count 311 K/mm3 (150-450); RBC Distribution Width CV 13.8 % (11.6-14.6); RBC Distribution Width SD 49.8 fl (35.1-43.9); Red Blood Count 3.59 M/mm3 (4.2-5.4); White Blood Count 7.5 K/mm3 (4.4-11.0)
[2021-07-21 13:56] LABS: Hemoglobin A1c 6.3 % (3.8-5.6)
[2021-07-21 14:03] LABS: Anion Gap 10 (5-15); BUN 20 mg/dL (7-18); BUN/Creat Ratio 9.9 RATIO (10-20); Calcium,Total 9.3 mg/dL (8.5-10.1); Chloride 99 mmol/L (98-107); Creatinine, Serum 2.03 mg/dL (0.55-1.02); EST Glomerular Filtration Rate 26 mL/min (>60); Est Glom Filt Rate - Afr Amer 31 mL/min (>60); Estimated Creatinine Clearance 21.33 ml/min; Glucose 232 mg/dL (74-106); Potassium 3.3 mmol/L (3.5-5.1); Sodium Level 136 mmol/L (136-145)
--- NOTE | 2021-07-24 14:22 | PCM.PN.ORT ---
Subjective Subjective Surgery canceled due to inguinal rash Recommended to apply Lotrimin to affected area as directed and will re-check skin in 1 week. Objective Data Objective Data Vital Signs: Weight: 203 lb Lab / Micro Data Result Diagrams: 07/21/21 13:06 07/21/21 13:06 Micro: Microbiology 07/21/21 13:06 Nasal Secretion Nasal Screen MRSA/MSSA - Final 07/12/21 14:52 Swab (Method) Nasal Screen MRSA/MSSA - Final
[2021-08-07 05:51] LABS: INR Fingerstick 1.4
[2021-08-07 06:29] VITALS: BP 220/93; PULSE 58; RESP 18; TEMP 36.7; O2SAT 97; BMI 35.9
[2021-08-07 06:30] LABS: Hematocrit 32.2 % (37-47); Hemoglobin 10.5 g/dL (12.0-15.0); Mean Corp Hgb Conc 32.6 g/dL (32-36); Mean Corpuscular Hgb 31.2 pg (27.0-32.0); Mean Corpuscular Volume 95.5 fL (81-99); Mean Platelet Vol. 9.7 fl (6.2-12.0); Platelet Count 223 K/mm3 (150-450); RBC Distribution Width CV 13.3 % (11.6-14.6); RBC Distribution Width SD 46.5 fl (35.1-43.9); Red Blood Count 3.37 M/mm3 (4.2-5.4); White Blood Count 6.1 K/mm3 (4.4-11.0)
[2021-08-07 06:35] LABS: Bedside Glucose 161 mg/dL (70-110)
[2021-08-07 06:42] LABS: Anion Gap 8 (5-15); BUN 16 mg/dL (7-18); BUN/Creat Ratio 9.1 RATIO (10-20); Calcium,Total 9.2 mg/dL (8.5-10.1); Chloride 102 mmol/L (98-107); Creatinine, Serum 1.76 mg/dL (0.55-1.02); EST Glomerular Filtration Rate 30 mL/min (>60); Est Glom Filt Rate - Afr Amer 37 mL/min (>60); Glucose 165 mg/dL (74-106); Potassium 3.5 mmol/L (3.5-5.1); Sodium Level 138 mmol/L (136-145)
[2021-08-07] MEDS: Acetaminophen 500 MG Tablet 1000 MG PO (06:44)
[2021-08-07] MEDS: Gabapentin 600 MG Tablet PO (06:44)
[2021-08-07] MEDS: Lactated Ringers 1,000 ML 999 ML IV (06:45)
[2021-08-07 07:15] VITALS: BP 206/84; PULSE 67; RESP 18; O2SAT 88
[2021-08-07 07:20] VITALS: BP 199/104; PULSE 66; RESP 18; O2SAT 99
[2021-08-07 07:40] VITALS: RESP 18; O2SAT 94
== END ==
PROVIDERS: PCP Nurse Practitioner; Referring Provider Orthopaedic Surgery; Visit Provider Orthopaedic Surgery
DX: Z01.818 Encounter for other preprocedural examination (principal); Z01.811 Encounter for preprocedural respiratory examination; D64.9 Anemia, unspecified; Z01.810 Encounter for preprocedural cardiovascular examination
CPT/HCPCS: 36415; 36416; 80048; 82962; 83036; 83735; 85025; 85027; 85610; 86850; 86900; 86901; 87077; 87081; J7120

== ENCOUNTER → 2021-07-12 14:50 | Outpatient (CLI) | payer MEDICARE, SELFPAY ==
--- NOTE | 2021-07-12 14:56 | CT_ITS ---
CT the left lower extremity INDICATION: Left knee arthrosis, preop knee arthroplasty. COMPARISON: X-ray 11/23/2020 TECHNIQUE: Multiple thin section axial CT images of the left hip, knee, and ankle were obtained and filmed in bone windows. Furthermore, multiple sagittal and coronal reconstructions were performed. There is limiting techniques were utilized. FINDINGS: No abnormal soft tissue mass, lymphadenopathy, fluid collection. No acute fracture or dislocation. No lytic or blastic lesions. Examination left hip joint demonstrates no severe arthrosis. Examination of the left knee joint demonstrates severe tricompartmental arthrosis with severe joint space narrowing and osteophyte formation. Examination of the left ankle joint demonstrates no severe arthrosis. IMPRESSION: Severe left knee arthrosis. Electronically Signed: Sandro Long MD at 16:19 EST Tel , Service support , CT/Extremity Lower without Contra
== END ==
PROVIDERS: PCP Nurse Practitioner; Visit Provider Orthopaedic Surgery
DX: M17.12 Unilateral primary osteoarthritis, left knee (principal)
CPT/HCPCS: 73700

== ENCOUNTER 2021-09-13 14:33 | Outpatient (RCR) | payer MEDICARE, SELFPAY ==
[2021-06-01 20:29] VITALS: BMI 34.6
[2021-09-13 14:51] LABS: INR Fingerstick 2.1; Prothrombin Time Fingerstick 24.8 SEC (11.9-14.4)
== END 2021-10-02 18:00 | disposition home or self-care (01) ==
LOC: LAB 14:33
PROVIDERS: Family Provider Nurse Practitioner; PCP Nurse Practitioner; Referring Provider Internal Medicine Cardiovascular Disease; Visit Provider Internal Medicine Cardiovascular Disease
DX: I48.0 Paroxysmal atrial fibrillation (principal); Z79.01 Long term (current) use of anticoagulants
CPT/HCPCS: 36416; 85610

== ENCOUNTER 2021-11-21 15:41 | Outpatient (RCR) | payer MEDICARE, SELFPAY ==
[2021-11-21 15:51] LABS: Prothrombin Time Fingerstick 23.7 SEC (11.7-14.9)
== END 2021-11-21 18:00 | disposition home or self-care (01) ==
LOC: LAB 15:41
PROVIDERS: PCP Nurse Practitioner; Referring Provider Physician Assistant Medical; Visit Provider Physician Assistant Medical
DX: I48.0 Paroxysmal atrial fibrillation (principal); Z79.01 Long term (current) use of anticoagulants
CPT/HCPCS: 36416; 85610

== ENCOUNTER 2022-01-11 11:53 | Outpatient (RCR) | payer MEDICARE, SELFPAY ==
[2022-01-11 15:31] LABS: Prothrombin Time (Protime)PT. 22.1 SECONDS (11.7-14.9)
== END 2022-01-30 23:59 ==
LOC: BIMLAB 11:53
PROVIDERS: Nurse Practitioner Family; PCP Nurse Practitioner; Referring Provider Physician Assistant Medical; Visit Provider Physician Assistant Medical
DX: I48.0 Paroxysmal atrial fibrillation (principal); Z79.01 Long term (current) use of anticoagulants; E11.22 Type 2 diabetes mellitus with diabetic chronic kidney disease; N18.9 Chronic kidney disease, unspecified; I25.10 Atherosclerotic heart disease of native coronary artery without angina pectoris
CPT/HCPCS: 36415; 82043; 82570; 85610

== ENCOUNTER → 2022-05-21 | Outpatient (CLI) | payer MEDICARE, SELFPAY ==
--- NOTE | 2022-05-21 15:22 | CT_ITS ---
EXAM: CT LEFT LOWER EXTREMITY WITHOUT INTRAVENOUS CONTRAST CLINICAL INDICATION: PRE-OP TECHNIQUE: Helically acquired images were obtained of the left lower extremity without intravenous contrast. 2-D reformats were performed by the technologist. CTDIvol = ( 19.21 ) mGy, DLP = ( 1618.04 ) mGycm This CT exam was performed using one or more of the following dose reduction techniques: automated exposure control, adjustment of the mA and/or kV according to patient size, and/or use of iterative reconstruction technique. This report was created using [employer] technology. COMPARISON: None. FINDINGS: BONES/JOINTS: Severe tricompartmental osteoarthrosis. No significant joint effusion. Prominent calcaneal enthesophytes. Question lipomatous lesion along the inferior aspect of the lateral malleolus. No acute fracture. No subluxation. Normal alignment. SOFT TISSUES: Unremarkable. No soft tissue swelling or gas. No radiopaque foreign body. VASCULATURE: Peripheral vascular arterial aspect calcifications. OTHER FINDINGS: No masses or fluid collections. 2 small corticated ossific bodies along the proximal plantar fascia. CT/Extremity Lower without Contra IMPRESSION: 1. Study done for preoperative planning. 2. Severe tricompartment osteoporosis of the knee. 3. Soft tissue lipomatous lesion measures 5.0 x 1.9 cm and is probably benign. Electronically Signed: Jaswant Ruvalcaba MD at 3:31 EDT ,
== END | disposition home or self-care (01) ==
LOC: CT 14:59
PROVIDERS: PCP Nurse Practitioner Adult Health; Referring Provider Orthopaedic Surgery; Visit Provider Orthopaedic Surgery
DX: M17.12 Unilateral primary osteoarthritis, left knee (principal)
CPT/HCPCS: 73700

== ENCOUNTER → 2022-05-22 | Outpatient (CLI) | payer MEDICARE, SELFPAY ==
--- NOTE | 2022-05-22 12:47 | EKG12_ITS ---
Test Reason : PREOP Blood Pressure : / mmHG Vent. Rate : 062 BPM Atrial Rate : 062 BPM P-R Int : 186 ms QRS Dur : 086 ms QT Int : 464 ms P-R-T Axes : 054 057 066 degrees QTc Int : 470 ms Normal sinus rhythm Normal ECG Confirmed by JANIYA STANLEY, KAVON ([id number]), associate editor MARISABEL MARROQUIN ([id number]) on 05/23/2022 11:11:02 AM Referred By: Aaron Cheatham Confirmed By:KAVON DENSON MD
--- NOTE | 2022-05-22 12:50 | RAD_ITS ---
INDICATION: PREOP EXAMINATION/TECHNIQUE: X-RAY - XR Chest 2 Views COMPARISON: 06/28/2021. FINDINGS: LINES/DEVICES: None. LUNGS: Peribronchial cuffing bilateral hilar prominence is seen, mild prominence of the bronchovascular interstitial lung markings is visualized. Linear streaky opacities suggestive subsegmental atelectatic streaks visualized in the lower lung marie that demonstrate no significant change in comparison to the prior study. Biapical prominence and biapical pleural reaction is seen. No evidence of pneumothorax or parenchymal contusion. No evidence of pleural fluid effusion is seen. MEDIASTINUM AND CARDIOVASCULAR STRUCTURES: Cardiac silhouette not enlarged. BONES AND SOFT TISSUES: Degenerative bone changes seen. RAD/Chest PA and Lateral IMPRESSION: Chronic interstitial changes demonstrate no significant change. No radiographic evidence of acute cardiopulmonary disease. Electronically Signed: Anderson Pathak MD at 15:35 EDT ,
[2022-05-22 13:39] LABS: Absolute Lymphocyte Count 1.99 X10^3/uL (0.83-4.51); Absolute Neutrophil Count 4.9 X10^3/uL (2.0-7.7); Basophil# 0.05 X10^3/uL; Basophil% 0.6 % (0-1); Eosinophil# 0.14 X10^3/uL; Eosinophils% 1.8 % (0-5); Hematocrit 35.9 % (37-47); Hemoglobin 11.4 g/dL (12.0-15.0); Lymphocyte # 1.99 X10^3/ul (0.83-4.51); Lymphocyte % 25.6 % (19-41); Mean Corp Hgb Conc 31.8 g/dL (32-36); Mean Corpuscular Hgb 31.2 pg (27.0-32.0); Mean Corpuscular Volume 98.4 fL (81-99); Mean Platelet Vol. 9.7 fl (6.2-12.0); Monocyte# 0.63 X10^3/uL; Monocyte% 8.1 % (0-10); NRBC Flagged by Analyzer 0 % (0-5); Neutrophil # 4.91 X10^3/uL (2.7-7.7); Neutrophil % 63.4 % (47-70); Platelet Count 332 K/mm3 (150-450); RBC Distribution Width CV 13.2 % (11.6-14.6); Red Blood Count 3.65 M/mm3 (4.2-5.4); White Blood Count 7.8 K/mm3 (4.4-11.0)
[2022-05-22 13:52] LABS: International Normalized Ratio 1.3; Prothrombin Time (Protime)PT. 16.2 SECONDS (11.7-14.9)
[2022-05-22 13:59] LABS: Hemoglobin A1c 7.6 % (3.8-5.6)
[2022-05-22 14:14] LABS: Anion Gap 8 (5-15); BUN 25 mg/dL (7-18); BUN/Creat Ratio 10.2 RATIO (10-20); Calcium,Total 9.6 mg/dL (8.5-10.1); Chloride 101 mmol/L (98-107); Creatinine, Serum 2.46 mg/dL (0.55-1.02); EST Glomerular Filtration Rate 21 mL/min (>60); Est Glom Filt Rate - Afr Amer 25 mL/min (>60); Glucose 110 mg/dL (74-106); Potassium 4.3 mmol/L (3.5-5.1); Sodium Level 136 mmol/L (136-145)
[2022-05-22 14:28] LABS: AST(SGOT) 13 U/L (15-37); Alanine Aminotransfer ALT/SGPT 16 U/L (13-56); Albumin, Serum 2.7 g/dL (3.2-5.0); Alkaline Phosphatase 89 U/L (45-117); Bilirubin, Direct 0.11 mg/dL (0.00-0.30); Globulin 4.9 g/dL (2.2-4.2); Magnesium 2.4 mg/dL (1.6-2.6); Protein, Total 7.6 g/dL (6.4-8.2); Thyroid Stim Hormone (TSH) 2.85 uIU/mL (0.358-3.74)
== END | disposition home or self-care (01) ==
LOC: PAT 06-18 12:17
PROVIDERS: Anesthesiology; Physician Assistant Medical; PCP Nurse Practitioner Adult Health; Referring Provider Orthopaedic Surgery; Visit Provider Orthopaedic Surgery
DX: Z01.810 Encounter for preprocedural cardiovascular examination (principal); Z01.812 Encounter for preprocedural laboratory examination; Z01.811 Encounter for preprocedural respiratory examination; I25.10 Atherosclerotic heart disease of native coronary artery without angina pectoris
CPT/HCPCS: 36415; 71046; 80048; 80076; 83036; 83735; 84443; 85025; 85610; 87077; 87081; 93005

== ENCOUNTER 2022-08-16 09:55 | Outpatient (RCR) | payer MEDICARE, SELFPAY ==
[2021-10-02 23:04] VITALS: BMI 34.6
[2022-08-16 10:05] LABS: INR Fingerstick 1.5; Prothrombin Time Fingerstick 17.8 SEC (11.7-14.9)
[2022-08-16 13:30] LABS: ALB/GLOB Ratio 0.7 RATIO (0.9-2.4); AST(SGOT) 14 U/L (15-37); Alanine Aminotransfer ALT/SGPT 17 U/L (13-56); Alkaline Phosphatase 78 U/L (45-117); Anion Gap 5 (5-15); BUN 24 mg/dL (7-18); BUN/Creat Ratio 11.4 RATIO (10-20); Calcium,Total 10.1 mg/dL (8.5-10.1); Chloride 100 mmol/L (98-107); Creatinine, Serum 2.11 mg/dL (0.55-1.02); EST Glomerular Filtration Rate 25 mL/min (>60); Est Glom Filt Rate - Afr Amer 30 mL/min (>60); Globulin 4.4 g/dL (2.2-4.2); Glucose 146 mg/dL (74-106); Potassium 4.7 mmol/L (3.5-5.1); Protein, Total 7.4 g/dL (6.4-8.2); Sodium Level 137 mmol/L (136-145)
== END 2022-08-16 18:00 | disposition home or self-care (01) ==
LOC: LAB 09:55
PROVIDERS: Nurse Practitioner Family; Family Provider Nurse Practitioner; PCP Nurse Practitioner Adult Health; Referring Provider Internal Medicine Cardiovascular Disease; Visit Provider Internal Medicine Cardiovascular Disease
DX: N18.4 Chronic kidney disease, stage 4 (severe) (principal); Z79.01 Long term (current) use of anticoagulants
CPT/HCPCS: 36415; 36416; 80053; 85610

== ENCOUNTER 2022-09-10 14:20 | Outpatient (RCR) | payer MEDICARE, SELFPAY ==
[2022-09-02 03:47] VITALS: BMI 34.6
[2022-09-10 14:46] LABS: Prothrombin Time Fingerstick 23.9 SEC (11.7-14.9)
== END 2022-09-10 15:00 | disposition home or self-care (01) ==
LOC: LAB 14:20
PROVIDERS: Family Provider Nurse Practitioner; PCP Nurse Practitioner Adult Health; Referring Provider Internal Medicine Cardiovascular Disease; Visit Provider Internal Medicine Cardiovascular Disease
DX: I48.0 Paroxysmal atrial fibrillation (principal); Z79.01 Long term (current) use of anticoagulants
CPT/HCPCS: 36416; 85610

== ENCOUNTER 2022-10-12 14:43 | Outpatient (RCR) | payer MEDICARE, SELFPAY ==
[2022-10-03 08:14] VITALS: BMI 34.6
[2022-10-12 14:50] LABS: INR Fingerstick 2.3
== END 2022-10-12 18:00 | disposition home or self-care (01) ==
LOC: LAB 14:43
PROVIDERS: Family Provider Nurse Practitioner; PCP Nurse Practitioner Adult Health; Referring Provider Internal Medicine Cardiovascular Disease; Visit Provider Internal Medicine Cardiovascular Disease
DX: I48.0 Paroxysmal atrial fibrillation (principal); Z79.01 Long term (current) use of anticoagulants
CPT/HCPCS: 36416; 85610

== ENCOUNTER 2022-11-02 08:23 | Inpatient (IN) | payer MEDICARE, SELFPAY ==
[2022-11-02] VITALS (9 sets, daily range): BP systolic 130–163; BP diastolic 66–109; PULSE 92–103; RESP 16–18; TEMP 36.6–37.7; O2SAT 95–99; BMI 34.3
--- NOTE | 2022-11-02 05:39 | ECHOD_ITS ---
Reason For Study: CHF Procedure This was a 2D Doppler, Color Flow transthoracic echocardiogram. The study was technically difficult. Exam performed portable in patient room. Left Ventricle Normal LV size. Severe concentric left ventricular hypertrophy. Left ventricular systolic function is normal. The estimated ejection fraction is 60 %. Diastolic function is indeterminate. Right Ventricle Normal RV size. Normal systolic function. Atria The left atrium is moderately enlarged. Normal right atrium. No doppler evidence for ASD. Mitral Valve There is moderate mitral annular calcification. Extension of the mitral annular calcification onto the base of the posterior mitral valve leaflet. Mild (1+) eccentric mitral valve insufficiency. Tricuspid Valve Normal tricuspid valve. Mild eccentric tricuspid valve insufficiency. Right ventricular systolic pressure estimated to be 44 mmHg. Aortic Valve Trisinus/trileaflet aortic valve. Mild diffuse aortic valve thickening. Mild focal aortic valve calcification. Pulmonic Valve The pulmonic valve is not well visualized. Great Vessels Normal sized aortic root. Pericardium/Pleural No pericardial effusion. MMode/2D Measurements & Calculations LVIDd: 4.0 cm IVSd: 1.6 cm Ao root diam: 3.6 cm LVIDs: 2.4 cm LVPWd: 1.7 cm RVDd: 3.3 cm FS: 40.3 % LAV(MOD-bp): 84.6 ml LVAd ap4: 21.9 cm2 SV(MOD-sp4): 31.7 ml LAV(MOD-bp) Indexed: 43.7 ml/m2 LVLd ap4: 7.3 cm LAV(MOD-sp2): 87.9 ml EDV(MOD-sp4): 54.9 ml LAV(MOD-sp4): 72.4 ml EDV(sp4-el): 55.7 ml LVAs ap4: 12.6 cm2 LVLs ap4: 6.1 cm ESV(MOD-sp4): 23.1 ml ESV(sp4-el): 22.2 ml EF(MOD-sp4): 57.8 % EF(sp4-el): 60.1 % SV(sp4-el): 33.4 ml LA A4 area: 25.4 cm2 LA dimension(2D): 4.8 cm RA A4 area: 16.3 cm2 Doppler Measurements & Calculations MV E max peter: 124.0 cm/sec Ao V2 max: 149.4 cm/sec LV V1 max: 123.5 cm/sec Ao max P.0 mmHg LV V1 max P.1 mmHg Ao V2 mean: 110.3 cm/sec Ao mean P.3 mmHg Ao V2 VTI: 26.1 cm PA V2 max: 116.7 cm/sec TR max peter: 319.4 cm/sec TR max P.8 mmHg ECHO/Echo Complete Interpretation Summary The study was technically difficult. Left ventricular systolic function is normal. The estimated ejection fraction is 60 %. Severe concentric left ventricular hypertrophy. The left atrium is moderately enlarged. Extension of the mitral annular calcification onto the base of the posterior mi tral valve leaflet. Mild eccentric tricuspid valve insufficiency. Mild diffuse aortic valve thickening. Mild focal aortic valve calcification. Right ventricular systolic pressure estimated to be 44 mmHg. Diastolic function is indeterminate. Ordering Physician: Raudel Wolff Referring Physician: Erlinda Mcneil Performed By: Yadi Muniz, JAIRO, RVT
--- NOTE | 2022-11-02 06:10 | PCM.HP.STD ---
HPI - General General Date of Admission: 11/02/22 Date of Service: 11/02/22 Chief Complaint: Shortness of breath HPI Narrative Patient is 72-year old female with a significant history of diastolic heart failure who presented to [place] with shortness of breath and chest pain that has been going on for 2 o days. At [place] ED patient was found to be orthopneic. Pulse ox was 60 to 70% on arrival. She had crackles and wheezes. EKG was nonacute. Initial high-sensitivity troponin was 78. Repeat troponin was 75. Also patient has a history of chronic kidney disease. Her creatinine was 2.11. On his presentation at the arrival to [facility] his creatinine was 2.06. Chest x-ray showed pulmonary edema. proBNP was elevated at 4000. Patient was given Lasix IV. Her blood pressure remain elevated. She was going to get the Nitropaste. White count is unremarkable. BMP is unremarkable. Of note sodium was 136. Potassium 4.4. Chloride 95. Magnesium 2.2. CO2 31. PFSH Medical History Acute bronchitis Ambulates with cane Anemia Anxiety Arthritis Atherosclerotic heart disease of [place] coronary artery without angina pectoris Back pain Cardiology follow-up encounter Chronic respiratory failure with hypoxia CKD (chronic kidney disease) stage 3, GFR 30-59 ml/min CKD (chronic kidney disease) stage 4, GFR 15-29 ml/min Confusion COPD (chronic obstructive pulmonary disease) CRF (chronic renal failure) Depression Diastolic dysfunction Essential hypertension Fatigue Gastric reflux High cholesterol History of atrial fibrillation History of echocardiogram History of myocardial infarction History of renal disease History of stress test Hoarseness Hyperlipidemia Hypertension Hypertension Long-term use of high-risk medication Migraine headache Narcotic dependency, continuous Non-smoker Obesity (BMI 30.0-34.9) HARI (obstructive sleep apnea) Osteopenia PAF (paroxysmal atrial fibrillation) Pleural effusion Post-menopausal Pulmonary sarcoidosis Sepsis Shortness of breath on exertion Syncope Thyroid disease TIA (transient ischemic attack) Type 2 diabetes mellitus Wears dentures Wears glasses Home Medications promethazine 25 mg tablet 25 mg PO PRN PRN Nausea 07/18/15 [History Last Taken 07/17/15] ferrous sulfate 325 mg (65 mg iron) tablet (Feosol) 325 mg PO QDAY 02/16/18 [History Last Taken Unknown] levothyroxine 50 mcg tablet 50 mcg PO DAILY 02/16/18 [History Last Taken Unknown] omeprazole 20 mg tablet,delayed release mg PO QDAY 02/16/18 [History Last Taken 08/07/21] calcitriol 0.25 mcg capsule 0.25 mcg PO QDAY 02/17/18 [History Last Taken Unknown] cyclobenzaprine 10 mg tablet 10 mg PO BID PRN MUSCLE SPASMS 02/17/18 [History Last Taken Unknown] oxycodone-acetaminophen 7.5 mg-325 mg tablet 1 tab PO Q4H PRN Pain 02/17/18 [History Last Taken Unknown] cholecalciferol (vitamin D3) 25 mcg (1,000 unit) capsule 1,000 unit PO DAILY 11/17/18 [History Last Taken Unknown] oxybutynin chloride 5 mg tablet 5 mg PO DAILY 90 days #90 tabs 06/04/19 [History Last Taken 08/07/21] atorvastatin 20 mg tablet 20 mg PO QHS 07/10/21 [History Last Taken Unknown] warfarin 2 mg tablet 2 mg PO SUWE 08/03/21 [History Last Taken 08/01/21] furosemide 20 mg tablet 40 mg PO DAILY 11/21/21 [History Last Taken Unknown] citalopram 40 mg tablet 20 mg PO DAILY 01/11/22 [History Last Taken Unknown] cyanocobalamin (vitamin B-12) 2,500 mcg tablet 2,500 mcg PO DAILY 01/11/22 [History Last Taken Unknown] potassium chloride 20 mEq tablet,extended release 20 meq PO DAILY 01/11/22 [History Last Taken Unknown] warfarin 1 mg tablet 1 mg PO MOTUTHFRSA Take a 2mg tab on Weds and Sat #90 tabs 03/21/22 [Rx Last Taken Unknown] losartan 50 mg tablet 50 mg PO BID 04/23/22 [History Last Taken Unknown] buspirone 7.5 mg tablet 7.5 mg PO QHS 05/22/22 [History Last Taken Unknown] magnesium oxide 400 mg (241.3 mg magnesium) tablet 400 mg PO QHS 05/22/22 [History Last Taken Unknown] Farxiga 10 mg tablet (dapagliflozin) 10 mg PO DAILY #30 tabs 09/17/22 [Rx Last Taken Unknown] amlodipine 5 mg tablet See Rx Instructions .Route .COMPLEX #90 TABLETS 09/20/22 [Rx Last Taken Unknown] pen needle, diabetic 32 gauge x 5/32 (BD Ultra-Fine Christy Pen Needle) #100 ea 09/20/22 [Rx Last Taken Unknown] insulin detemir U-100 100 unit/mL (3 mL) subcutaneous pen (Levemir FlexPen) 30 unit (0.3 mL) subcut QHS #15 mL 10/09/22 [Rx Last Taken Unknown] metoprolol tartrate 50 mg tablet 50 mg PO BID #180 tabs 10/29/22 [Rx Last Taken Unknown] Allergy/AdvReac Type Severity Reaction Status Date / Time prochlorperazine edisylate Allergy Other Verified 08/16/22 10:46 [From Compazine] Family History Sister Diabetes Hypertension Sister Diabetes Hypertension Sister Diabetes Hypertension Surgical History History of back surgery History of cardiac catheterization History of cataract surgery History of cholecystectomy History of hysterectomy History of right knee joint replacement Social History household members: spouse housing: house Smoking Status: Never smoker alcohol intake: never substance use type: does not use caffeine: No ROS ROS Narrative Pertinent positives and pertinent negatives as noted in HPI. All other systems were reviewed and are negative Physical Exam Narrative Physical exam: General: Well-nourished, well-developed. Head: Normocephalic, atraumatic, no tenderness Eyes: Vision is grossly intact. EOMI ENT, no trauma, moist mucous membranes, no rhinorrhea Neck: Nontender, No thyromegaly. CVS: S1-S2 present. No murmur, gallop or rub. Respiratory : Mild rales, chest wall nontender, no wheezing Abdomen: Soft, nontender, nondistended, normal bowel sounds, no masses : Deferred Back: Nontender, no CVA tenderness. Extremities: Nontender full range of motion, no trauma Skin: Normal color, no trauma, abrasions Neuro: Alert, oriented, cranial nerves II through XII grossly intact. Psychiatry: Normal mood. Normal affect. Not depressed. Not anxious. Assessment & Plan Assessment/Plan (1) Diastolic dysfunction: (2) CKD (chronic kidney disease) stage 4, GFR 15-29 ml/min: (3) Type 2 diabetes mellitus: QUALIFIERS: Diabetes mellitus longterm insulin use: without tank terminal gauger use Diabetes mellitus complication status: with hyperglycemia Qualified Code(s): E11.65 - Type 2 diabetes mellitus with hyperglycemia PLAN: Plan Acute Exacerbation of heart failure Place on monitored bed on PCU Weight on admission to the floor; and then daily Strict I&O's Elevated BNP at outside hospital Diuresis with Lasix IV Echocardiogram in 2019 showed preserved EF. Transthoracic echocardiogram ordered to evaluate left ventricular wall motion and systolic function. Monitor electrolytes and renal function Fluid restriction of 1500 mls daily Low-sodium diet and diabetic diet ordered CKD stage IV Stable Diabetes mellitus Adjust home basal insulin Accu-check with correction scale insulin ordered. Chronic A-fib Stable Trend INR. INR is therapeutic. Dose Coumadin. INR DVT prophylaxis not indicated as patient is on Coumadin and INR is therapeutic. Charges/Coding Visit Charges Inpatient E&M: 33731 Init Hosp L3
[2022-11-02 06:59] LABS: Absolute Neutrophil Count 4.2 X10^3/uL (2.0-7.7); Basophil# 0.03 X10^3/uL; Basophil% 0.5 % (0-1); Eosinophil# 0.06 X10^3/uL; Hematocrit 31.2 % (37-47); Hemoglobin 10.3 g/dL (12.0-15.0); Lymphocyte % 22.7 % (19-41); Mean Corpuscular Hgb 31.3 pg (27.0-32.0); Mean Corpuscular Volume 94.8 fL (81-99); Mean Platelet Vol. 9.2 fl (6.2-12.0); Monocyte% 6.5 % (0-10); NRBC Flagged by Analyzer 0 % (0-5); Neutrophil # 4.23 X10^3/uL (2.7-7.7); Neutrophil % 68.7 % (47-70); Platelet Count 212 K/mm3 (150-450); RBC Distribution Width CV 13.8 % (11.6-14.6); RBC Distribution Width SD 47.6 fl (35.1-43.9); Red Blood Count 3.29 M/mm3 (4.2-5.4); White Blood Count 6.2 K/mm3 (4.4-11.0)
[2022-11-02 07:15] LABS: International Normalized Ratio 2.4; Prothrombin Time (Protime)PT. 25.5 SECONDS (11.7-14.9)
[2022-11-02 07:39] LABS: Anion Gap 6 (5-15); BUN 25 mg/dL (7-18); BUN/Creat Ratio 11.8 RATIO (10-20); Calcium,Total 9.6 mg/dL (8.5-10.1); Chloride 101 mmol/L (98-107); Creatinine, Serum 2.11 mg/dL (0.55-1.02); EST Glomerular Filtration Rate 25 mL/min (>60); Est Glom Filt Rate - Afr Amer 30 mL/min (>60); Estimated Creatinine Clearance 21.12 ml/min; Glucose 135 mg/dL (74-106); Potassium 3.5 mmol/L (3.5-5.1); Sodium Level 139 mmol/L (136-145)
[2022-11-02 07:45] LABS: Bedside Glucose 118 mg/dL (74-106)
[2022-11-02] MEDS: Citalopram 40 MG TABLET 20 MG PO (09:03)
[2022-11-02] MEDS: Empagliflozin 25 MG Tablet PO (09:03)
[2022-11-02] MEDS: Furosemide 40 MG/4 ML Vial IV ×2 (09:04→17:07)
[2022-11-02] MEDS: Calcitriol 0.25 MCG Capsule PO (09:04)
[2022-11-02] MEDS: Losartan Potassium 50 MG Tablet PO ×2 (09:04→22:30)
[2022-11-02] MEDS: Ferrous Sulfate 325 MG Tablet PO (11:10)
[2022-11-02 11:25] LABS: Bedside Glucose 144 mg/dL (74-106)
--- NOTE | 2022-11-02 14:00 | CASEMGMT ---
CAT LANDIS DC Planning Assessment: Face to Face with patient for initial transition planning/care coordination assessment. Pt awoken easily, oriented x4 and agreeable to participating in assessment. CAT LANDIS introduced self and role at [facility], pt voices understanding. Care providers, pharmacy, and demographics verified. Admitting Dx: CHF PCP: RANDA Mcneil Specialists: Ezra (nephrology), Dr. Grande (endocrinology), Dr. Fowler (cardiology) Preferred Pharmacy: [facility] Insurance: [employer] [facility] Prescription Benefit: yes Living Will/HPOA: none LNOK: Remy (spouse) Living Arrangements: Pt lives with her spouse in a single story home with three steps between the living room and kitchen area. Pt states she has been independent with ADLs and shares household tasks with her . States the laundry is in the basement and her completes this task so she does not need to go to the basement. Transportation: pt drives and spouse does also. DME: shower chair, high rise toilet, cane, pulse oximeter. Pt has a w/c and hospital bed but does not use these. Pt has a glucometer and monitors her glucose twice daily. States she works with Dr Grande on managing her DM. SNF/HHC: denies any previous providers. Plan: Pt states she plans to return home at discharge and denies any concerns or needs at this time. Noted pt on O2 and discussed possible need to have O2 at discharge. Pt states she was sent home with O2 in the past but does not currently have in her home and does not recall previous provider. Verbally reviewed local home O2 providers with pt agreeable to [facility]. Green sheet placed on chart. Patric Madsen RN CM
[2022-11-02 16:36] LABS: Bedside Glucose 141 mg/dL (74-106)
--- NOTE | 2022-11-02 19:04 | PCM.HOSP.N ---
Hospitalist Note Patient was seen and examined today, she appears comfortable at the time my examination, patient was transferred from [facility] after going there to the emergency room with complaints of shortness of breath, she was found to have congestive heart failure, patient was transferred and directly admitted to PCU. I confirmed her medications today, she is on low-flow oxygen at this time, echocardiogram today showed an EF of 60%, mild pulmonary hypertension, and no significant valvular heart disease. Patient will remain on IV Lasix, labs will be monitored.
[2022-11-02] MEDS: Acetaminophen 325 MG Tablet 650 MG PO (19:54)
[2022-11-02] MEDS: cycloBENZAPRine HCl 10 MG Tablet PO (19:54)
[2022-11-02] MEDS: oxyCODONE 5 MG Tablet PO (19:55)
[2022-11-02] MEDS: busPIRone 5 MG Tablet 7.5 MG PO (22:29)
[2022-11-02] MEDS: Magnesium Chloride 64 MG Delay Rel.Tablet 128 MG PO (22:30)
[2022-11-02] MEDS: Atorvastatin Calcium 20 MG Tablet PO (22:31)
[2022-11-02] MEDS: Metoprolol Tartrate 50 MG Tablet PO (22:41)
[2022-11-02] MEDS: Insulin Glargine-YFGN 100 UNIT/ML Pen 25 UNIT SC (22:42)
[2022-11-03] VITALS (7 sets, daily range): BP systolic 148–150; BP diastolic 61–83; PULSE 60–103; RESP 16–18; TEMP 36.4–36.8; O2SAT 90–97; BMI 34.2
[2022-11-03 00:15] LABS: Bedside Glucose 141 mg/dL (74-106)
[2022-11-03] MEDS: proMETHazine 25 MG Tablet PO (02:16)
[2022-11-03] MEDS: Levothyroxine 50 MCG Tablet PO (05:47)
[2022-11-03 06:30] LABS: Bedside Glucose 108 mg/dL (74-106)
[2022-11-03 06:49] LABS: International Normalized Ratio 2.2
--- NOTE | 2022-11-03 07:00 | RAD_ITS ---
HISTORY: CHF. TECHNIQUE: XR Chest 2 Views. COMPARISON: Prior day. FINDINGS: LINES/TUBES: None. CARDIOMEDIASTINAL BORDERS: Stable borderline cardiomegaly with calcification of the aorta. LUNGS: Right greater than left linear and interstitial bibasilar opacities mildly decreased. Calcified granuloma in the right lung base. PLEURA: No pleural effusion or pneumothorax. OTHER: Chronic compression fracture vertebroplasty at the thoracolumbar junction. Gaseous distention of bowel in the upper abdomen. RAD/Chest PA and Lateral IMPRESSION: Mildly decreased bibasilar linear and interstitial opacities. Electronically Signed: Constance Mendez MD at 13:32 EST ,
[2022-11-03 07:12] LABS: Anion Gap 7 (5-15); BUN 28 mg/dL (7-18); BUN/Creat Ratio 12.5 RATIO (10-20); Calcium,Total 9.4 mg/dL (8.5-10.1); Chloride 99 mmol/L (98-107); Creatinine, Serum 2.24 mg/dL (0.55-1.02); EST Glomerular Filtration Rate 23 mL/min (>60); Est Glom Filt Rate - Afr Amer 28 mL/min (>60); Estimated Creatinine Clearance 19.89 ml/min; Glucose 88 mg/dL (74-106); Potassium 3.6 mmol/L (3.5-5.1); Sodium Level 139 mmol/L (136-145)
[2022-11-03] MEDS: Empagliflozin 25 MG Tablet PO (08:35)
[2022-11-03] MEDS: Potassium Chloride Oral Tablet 20 MEQ PO (08:35)
[2022-11-03] MEDS: Metoprolol Tartrate 50 MG Tablet PO (08:35)
[2022-11-03] MEDS: Calcitriol 0.25 MCG Capsule PO (08:35)
[2022-11-03] MEDS: amLODIPine 5 MG Tablet PO (08:35)
[2022-11-03] MEDS: Pantoprazole Sodium 20 MG Tablet PO (08:35)
[2022-11-03] MEDS: Citalopram 40 MG TABLET 20 MG PO (08:36)
[2022-11-03] MEDS: Furosemide 40 MG/4 ML Vial IV (08:36)
[2022-11-03] MEDS: Losartan Potassium 50 MG Tablet PO (08:36)
[2022-11-03] MEDS: Cholecalciferol (VIT D3) 25 MCG TABLET (1,000 UNITS) PO (08:36)
[2022-11-03] MEDS: Docusate Sodium 100 MG Capsule PO (08:36)
[2022-11-03] MEDS: Oxybutynin 5 MG Tablet PO (08:36)
[2022-11-03] MEDS: oxyCODONE 5 MG Tablet PO (08:41)
[2022-11-03] MEDS: Ferrous Sulfate 325 MG Tablet PO (11:42)
[2022-11-03] MEDS: cycloBENZAPRine HCl 10 MG Tablet PO (12:09)
[2022-11-03 12:15] LABS: Bedside Glucose 185 mg/dL (74-106)
--- NOTE | 2022-11-03 12:37 | PCM.DC ---
Discharge Instructions Diet Discharge Diet: No restrictions Activity Discharge Activity: Return to Normal Activity Weight Bearing Status: Full weight bearing Follow Up Care Test Results: Test results from this visit will be discussed in further detail at your follow-up appointment, if applicable. Discharge Plan Admission Admit Date/Time: 11/02/22 08:23 Primary Reason for Your Visit: congestive heart failure with preserved ejection fraction Attending Provider: Massimo Hernández Primary Care Provider: Erlinda Mcneil NP Consulting Providers: Raudel Wolff Discharge Orders/Prescriptions Prescriptions: New furosemide [Lasix] 40 mg tablet 40 mg PO UD Qty: 75 0RF Rx Instructions: 1 1/2 tabs in the am, one tab in PM potassium chloride [Klor-Con M20] 20 mEq Tablet,Er Particles/Crystals 20 meq PO BIDCM Qty: 60 0RF Continued calcitriol 0.25 mcg capsule 0.25 mcg PO QDAY oxycodone-acetaminophen 7.5-325 mg tablet 1 tab PO Q4H PRN (Reason: Pain) cyclobenzaprine 10 mg tablet 10 mg PO BID PRN (Reason: MUSCLE SPASMS) levothyroxine 50 mcg tablet 50 mcg PO DAILY omeprazole 20 mg tablet,delayed release (DR/EC) 20 mg PO QDAY ferrous sulfate [Feosol] 325 mg (65 mg iron) tablet 325 mg PO QDAY cholecalciferol (vitamin D3) 1,000 unit capsule 1,000 unit capsule 1,000 unit PO DAILY oxybutynin chloride 5 mg tablet 5 mg PO DAILY 90 Days Qty: 90 citalopram 40 mg tablet 20 mg PO DAILY potassium chloride 20 mEq tablet extended release 20 meq PO DAILY cyanocobalamin (vitamin B-12) 2,500 mcg tablet 2,500 mcg PO DAILY losartan 50 mg tablet 50 mg PO BID promethazine 25 MG tablet 25 mg PO PRN PRN (Reason: Nausea) Label Comments: NAUSEA atorvastatin 20 mg tablet 20 mg PO QHS warfarin 2 mg Tablet 2 mg PO Protocol: Dose Management Condition: Saturday Dose/Route: 2 mg Instruction: 1 x 2 mg tablet Condition: Saturday Dose/Route: 1 mg Instruction: 1 x 1 mg tablet Condition: Saturday Dose/Route: 1 mg Instruction: 1 x 1 mg tablet Condition: Saturday Dose/Route: 2 mg Instruction: 1 x 2 mg tablet Condition: Dose/Route: 1 mg Instruction: 1 x 1 mg tablet Condition: Saturday Dose/Route: 2 mg Instruction: 1 x 2 mg tablet Condition: Saturday Dose/Route: 1 mg Instruction: 1 x 1 mg tablet Protocol Text: Adjustment Start Date: Saturday10/12/22 INR Value: 2.3 INR Date: 10/12/22 Recheck Date: 11/09/22 buspirone 7.5 mg Tablet 7.5 mg PO QHS magnesium oxide 400 mg (241.3 mg magnesium) tablet 400 mg PO QHS docusate sodium [Dulcolax Stool Softener (dss)] 100 mg Capsule 100 mg PO BID metoprolol tartrate 50 mg tablet 50 mg PO BID MDD heart rate warfarin 1 mg tablet 1 mg PO MOTUTHFRSA Qty: 90 3RF Protocol: Dose Management Condition: Saturday Dose/Route: 2 mg Instruction: 1 x 2 mg tablet Condition: Saturday Dose/Route: 1 mg Instruction: 1 x 1 mg tablet Condition: Saturday Dose/Route: 1 mg Instruction: 1 x 1 mg tablet Condition: Saturday Dose/Route: 2 mg Instruction: 1 x 2 mg tablet Condition: Dose/Route: 1 mg Instruction: 1 x 1 mg tablet Condition: Saturday Dose/Route: 2 mg Instruction: 1 x 2 mg tablet Condition: Saturday Dose/Route: 1 mg Instruction: 1 x 1 mg tablet Protocol Text: Adjustment Start Date: Saturday10/12/22 INR Value: 2.3 INR Date: 10/12/22 Recheck Date: 11/09/22 Farxiga 10 mg tablet 10 mg PO DAILY Qty: 30 5RF amlodipine 5 mg tablet See Rx Instructions .ROUTE .COMPLEX Qty: 90 3RF Dose Instruction: TAKE 1 TABLET BY MOUTH EVERY DAY Rx Instructions: TAKE 1 TABLET BY MOUTH EVERY DAY Levemir FlexPen 100 unit/mL (3 mL) insulin pen 30 unit subcut QHS Qty: 15 5RF Discontinued furosemide 20 mg tablet 40 mg PO DAILY Label Comments: WATER PILL Referrals / Follow Up: Erlinda Mcneil NP, [facility] [Primary Care Provider] - Within 1 Week Disposition Disposition (needs filled in before D/C Order can be placed): Home, Self Care
--- NOTE | 2022-11-03 12:53 | DS.PCM_ITS ---
Providers Date of Admission: 11/02/22 Date of Discharge: 11/03/22 Primary Care Physician: YAS Emerson Reason For Visit: ACUTE ON CHRONIC HEART FAILURE Diagnosis Discharge Diagnosis (1) Diastolic dysfunction: Status: Chronic Code(s): I51.9 - Heart disease, unspecified (2) CKD (chronic kidney disease) stage 4, GFR 15-29 ml/min: Status: Chronic Code(s): N18.4 - Chronic kidney disease, stage 4 (severe) (3) Type 2 diabetes mellitus: Status: Chronic Code(s): E11.9 - Type 2 diabetes mellitus without complications Qualifiers: Diabetes mellitus complication status: with hyperglycemia Diabetes mellitus rn long term care insulin use: without alf use Qualified Code(s): E11.65 - Type 2 diabetes mellitus with hyperglycemia Plan 1. Acute diastolic congestive heart failure #2 hypoxia secondary to #1 #3 mild pulmonary hypertension Medications at Discharge Home Medications promethazine 25 mg tablet 25 mg PO PRN PRN Nausea 07/18/15 ferrous sulfate 325 mg (65 mg iron) tablet (Feosol) 325 mg PO QDAY 02/16/18 levothyroxine 50 mcg tablet 50 mcg PO DAILY 02/16/18 omeprazole 20 mg tablet,delayed release 20 mg PO QDAY GERD 02/16/18 calcitriol 0.25 mcg capsule 0.25 mcg PO QDAY 02/17/18 cyclobenzaprine 10 mg tablet 10 mg PO BID PRN MUSCLE SPASMS 02/17/18 oxycodone-acetaminophen 7.5 mg-325 mg tablet 1 tab PO Q4H PRN Pain 02/17/18 cholecalciferol (vitamin D3) 25 mcg (1,000 unit) capsule 1,000 unit PO DAILY 11/17/18 oxybutynin chloride 5 mg tablet 5 mg PO DAILY bladder 90 days #90 tabs 06/04/19 atorvastatin 20 mg tablet 20 mg PO QHS 07/10/21 warfarin 2 mg tablet 2 mg PO SUWE blood thinner 08/03/21 citalopram 40 mg tablet 20 mg PO DAILY 01/11/22 cyanocobalamin (vitamin B-12) 2,500 mcg tablet 2,500 mcg PO DAILY 01/11/22 potassium chloride 20 mEq tablet,extended release 20 meq PO DAILY supplement 01/11/22 warfarin 1 mg tablet 1 mg PO MOTUTHFRSA Take a 2mg tab on Wed and Sat #90 tabs 03/21/22 losartan 50 mg tablet 50 mg PO BID 04/23/22 buspirone 7.5 mg tablet 7.5 mg PO QHS 05/22/22 Farxiga 10 mg tablet (dapagliflozin) 10 mg PO DAILY #30 tabs 09/17/22 amlodipine 5 mg tablet See Rx Instructions .Route .COMPLEX #90 TABLETS 09/20/22 insulin detemir U-100 100 unit/mL (3 mL) subcutaneous pen (Levemir FlexPen) 30 unit (0.3 mL) subcut QHS #15 mL 10/09/22 docusate sodium 100 mg capsule (Dulcolax Stool Softener (docusate)) 100 mg PO BID 11/02/22 metoprolol tartrate 50 mg tablet 50 mg PO BID heart rate 11/02/22 furosemide 40 mg tablet (Lasix) 40 mg PO UD #75 tabs 11/03/22 potassium chloride 20 mEq tablet,extended release(part/cryst) (Klor-Con M) 20 meq PO BIDCM #60 tabs 11/03/22 magnesium oxide 400 mg (241.3 mg magnesium) tablet 400 mg PO QHS #90 tabs 11/05/22 Hospital Course Operations None Procedures None Summary of Care Provided Minutes Spent on Discharge: 31 Hospital Course: 72-year-old white female was transferred from [facility] emergency room as a direct admission to PCU due to congestive heart failure, patient had an echocardiogram performed here which showed an EF of 60%, she was treated with IV Lasix and initially required supplemental oxygen at a low flow rate. Patient improved quickly during her hospitalization, on 11/03/2022, patient was seen and examined: On examination she appeared in good health and spirits, she does not appear to be in any distress. Vital signs as documented. Skin warm and dry and without overt rashes. Neck without JVD, thyroid appears normal, trachea is midline, neck is supple. Lungs clear, normal air movement was noted. Heart exam notable for regular rhythm, normal sounds and absence of murmurs, rubs or gallops. Abdomen unremarkable and without evidence of organomegaly, masses, or abdominal aortic enlargement, bowel sounds are present in all 4 quadrants, no abdominal tenderness was noted. Extremities nonedematous, no cyanosis was noted, no clubbing was noted. Neuro: Cranial nerves II through XII are grossly intact, no focal motor deficits were noted, sensation to light touch and pinprick is intact, motor exam 5/5 throughout. Psych: Patient is alert and oriented x3, she does not appear anxious or depressed, she does not appear agitated. Patient was seen and examined and felt to be in stable condition for discharge home on 11/22 Weight / BMI Weight Weight: 90.6 kg Body Mass Index (BMI) 34.2 ABG / Lab / Microbiology Data Result Diagrams: 11/02/22 06:50 11/03/22 06:19 Laboratory: Laboratory Results - last 24 hr 11/02/22 16:17: POC Glucose 141 H 11/02/22 22:33: POC Glucose 141 H 11/03/22 06:10: POC Glucose 108 H 11/03/22 06:19: PT 24.0 H, INR 2.2 11/03/22 06:19: Sodium 139, Potassium 3.6, Chloride 99, Carbon Dioxide 33.0 H, Anion Gap 7, BUN 28 H, Creatinine 2.24 H, Estim Creat Clear Calc 19.89, Est GFR (MDRD) Af Amer 28 L, Est GFR (MDRD) Non-Af 23 L, BUN/Creatinine Ratio 12.5, Glucose 88, Calcium 9.4 11/03/22 11:40: POC Glucose 185 H D/C Instructions Discharge Diet: No restrictions Weight Bearing Status: Full weight bearing Meaningful Use Info Meaningful Use Diagnoses (Choose all that apply): CHF CHF ARASH/ARB ordered at discharge?: Yes Documented LVEF (%): 60 Discharge Plan Admission Admit Date/Time: 11/02/22 08:23 Primary Reason for Your Visit: congestive heart failure with preserved ejection fraction Attending Provider: Massimo Hernández Primary Care Provider: Erlinda Mcneil NP Consulting Providers: Raudel Wolff Discharge Orders/Prescriptions Prescriptions: New furosemide [Lasix] 40 mg tablet 40 mg PO UD Qty: 75 0RF Rx Instructions: 1 1/2 tabs in the am, one tab in PM potassium chloride [Klor-Con M20] 20 mEq Tablet,Er Particles/Crystals 20 meq PO BIDCM Qty: 60 0RF Continued calcitriol 0.25 mcg capsule 0.25 mcg PO QDAY oxycodone-acetaminophen 7.5-325 mg tablet 1 tab PO Q4H PRN (Reason: Pain) cyclobenzaprine 10 mg tablet 10 mg PO BID PRN (Reason: MUSCLE SPASMS) levothyroxine 50 mcg tablet 50 mcg PO DAILY omeprazole 20 mg tablet,delayed release (DR/EC) 20 mg PO QDAY ferrous sulfate [Feosol] 325 mg (65 mg iron) tablet 325 mg PO QDAY cholecalciferol (vitamin D3) 1,000 unit capsule 1,000 unit capsule 1,000 unit PO DAILY oxybutynin chloride 5 mg tablet 5 mg PO DAILY 90 Days Qty: 90 citalopram 40 mg tablet 20 mg PO DAILY potassium chloride 20 mEq tablet extended release 20 meq PO DAILY cyanocobalamin (vitamin B-12) 2,500 mcg tablet 2,500 mcg PO DAILY losartan 50 mg tablet 50 mg PO BID promethazine 25 MG tablet 25 mg PO PRN PRN (Reason: Nausea) Label Comments: NAUSEA atorvastatin 20 mg tablet 20 mg PO QHS warfarin 2 mg Tablet 2 mg PO Protocol: Dose Management Condition: Saturday Dose/Route: 2 mg Instruction: 1 x 2 mg tablet Condition: Saturday Dose/Route: 1 mg Instruction: 1 x 1 mg tablet Condition: Saturday Dose/Route: 1 mg Instruction: 1 x 1 mg tablet Condition: Saturday Dose/Route: 2 mg Instruction: 1 x 2 mg tablet Condition: Dose/Route: 1 mg Instruction: 1 x 1 mg tablet Condition: Saturday Dose/Route: 2 mg Instruction: 1 x 2 mg tablet Condition: Saturday Dose/Route: 1 mg Instruction: 1 x 1 mg tablet Protocol Text: Adjustment Start Date: Saturday10/12/22 INR Value: 2.3 INR Date: 10/12/22 Recheck Date: 11/09/22 buspirone 7.5 mg Tablet 7.5 mg PO QHS docusate sodium [Dulcolax Stool Softener (dss)] 100 mg Capsule 100 mg PO BID metoprolol tartrate 50 mg tablet 50 mg PO BID MDD heart rate warfarin 1 mg tablet 1 mg PO Qty: 90 3RF Protocol: Dose Management Condition: Saturday Dose/Route: 2 mg Instruction: 1 x 2 mg tablet Condition: Saturday Dose/Route: 1 mg Instruction: 1 x 1 mg tablet Condition: Saturday Dose/Route: 1 mg Instruction: 1 x 1 mg tablet Condition: Saturday Dose/Route: 2 mg Instruction: 1 x 2 mg tablet Condition: Dose/Route: 1 mg Instruction: 1 x 1 mg tablet Condition: Saturday Dose/Route: 2 mg Instruction: 1 x 2 mg tablet Condition: Saturday Dose/Route: 1 mg Instruction: 1 x 1 mg tablet Protocol Text: Adjustment Start Date: Saturday10/12/22 INR Value: 2.3 INR Date: 10/12/22 Recheck Date: 11/09/22 Farxiga 10 mg tablet 10 mg PO DAILY Qty: 30 5RF amlodipine 5 mg tablet See Rx Instructions .ROUTE .COMPLEX Qty: 90 3RF Dose Instruction: TAKE 1 TABLET BY MOUTH EVERY DAY Rx Instructions: TAKE 1 TABLET BY MOUTH EVERY DAY Levemir FlexPen 100 unit/mL (3 mL) insulin pen 30 unit subcut QHS Qty: 15 5RF Discontinued furosemide 20 mg tablet 40 mg PO DAILY Label Comments: WATER PILL No Action magnesium oxide 400 mg (241.3 mg magnesium) tablet 400 mg PO QHS Qty: 90 3RF Referrals / Follow Up: Erlinda Mcneil NP, [employer] [Primary Care Provider] - Within 1 Week Disposition Disposition (needs filled in before D/C Order can be placed): Home, Self Care Charges/Coding Visit Charges Inpatient E&M: 83435 Disch Hosp >30min
== END 2022-11-03 14:51 | disposition home or self-care (01) | DRG 291 ==
PROVIDERS: Admitting Provider Hospitalist; PCP Nurse Practitioner Adult Health; Visit Provider Internal Medicine
DX: I13.0 Hypertensive heart and chronic kidney disease with heart failure and stage 1 through stage 4 chronic kidney disease, or unspecified chronic kidney disease (principal); I50.31 Acute diastolic (congestive) heart failure; N18.4 Chronic kidney disease, stage 4 (severe); D63.1 Anemia in chronic kidney disease; I27.20 Pulmonary hypertension, unspecified; E11.22 Type 2 diabetes mellitus with diabetic chronic kidney disease; I48.0 Paroxysmal atrial fibrillation; E11.65 Type 2 diabetes mellitus with hyperglycemia; J44.9 Chronic obstructive pulmonary disease, unspecified; Z79.4 Long term (current) use of insulin; E78.00 Pure hypercholesterolemia, unspecified; I25.10 Atherosclerotic heart disease of native coronary artery without angina pectoris; I25.2 Old myocardial infarction; R09.02 Hypoxemia; Z79.01 Long term (current) use of anticoagulants; Z79.899 Other long term (current) drug therapy; Z86.73 Personal history of transient ischemic attack (TIA), and cerebral infarction without residual deficits
CPT/HCPCS: 36415; 71046; 80048; 82962; 85025; 85610; 93306; J1940

== ENCOUNTER 2022-11-13 12:19 | Outpatient (RCR) | payer MEDICARE, SELFPAY ==
[2022-10-30 22:28] VITALS: BMI 34.6
[2022-11-13 12:30] LABS: INR Fingerstick 2.2; Prothrombin Time Fingerstick 25.4 SEC (11.7-14.9)
== END 2022-11-30 23:00 | disposition home or self-care (01) ==
LOC: LAB 12:19
PROVIDERS: Family Provider Nurse Practitioner; PCP Nurse Practitioner Adult Health; Referring Provider Internal Medicine Cardiovascular Disease; Visit Provider Internal Medicine Cardiovascular Disease
DX: I48.0 Paroxysmal atrial fibrillation (principal); Z79.01 Long term (current) use of anticoagulants
CPT/HCPCS: 36416; 85610

== ENCOUNTER 2023-01-25 15:09 | Outpatient (RCR) | payer MEDICARE, SELFPAY ==
[2022-12-01 00:17] VITALS: BMI 34.6
[2023-01-25 16:23] LABS: Absolute Lymphocyte Count 1.49 X10^3/uL (0.83-4.51); Absolute Neutrophil Count 3.4 X10^3/uL (2.0-7.7); Basophil# 0.03 X10^3/uL; Basophil% 0.6 % (0-1); Eosinophil# 0.05 X10^3/uL; Eosinophils% 0.9 % (0-5); Hematocrit 40.3 % (37-47); Hemoglobin 12.6 g/dL (12.0-15.0); Lymphocyte # 1.49 X10^3/ul (0.83-4.51); Lymphocyte % 27.8 % (19-41); Mean Corp Hgb Conc 31.3 g/dL (32-36); Mean Corpuscular Hgb 31.2 pg (27.0-32.0); Mean Corpuscular Volume 99.8 fL (81-99); Mean Platelet Vol. 9.2 fl (6.2-12.0); Monocyte# 0.37 X10^3/uL; Monocyte% 6.9 % (0-10); NRBC Flagged by Analyzer 0 % (0-5); Neutrophil % 63.4 % (47-70); Platelet Count 372 K/mm3 (150-450); RBC Distribution Width CV 14.3 % (11.6-14.6); Red Blood Count 4.04 M/mm3 (4.2-5.4); White Blood Count 5.4 K/mm3 (4.4-11.0)
[2023-01-25 16:47] LABS: ALB/GLOB Ratio 0.6 RATIO (0.9-2.4); AST(SGOT) 13 U/L (15-37); Alanine Aminotransfer ALT/SGPT 19 U/L (13-56); Alkaline Phosphatase 94 U/L (45-117); Anion Gap 8 (5-15); BUN 33 mg/dL (7-18); Calcium,Total 10.9 mg/dL (8.5-10.1); Chloride 97 mmol/L (98-107); Creatinine, Serum 2.36 mg/dL (0.55-1.02); EST Glomerular Filtration Rate 22 mL/min (>60); Est Glom Filt Rate - Afr Amer 26 mL/min (>60); Globulin 5.2 g/dL (2.2-4.2); Glucose 152 mg/dL (74-106); Potassium 4.7 mmol/L (3.5-5.1); Protein, Total 8.2 g/dL (6.4-8.2); Sodium Level 136 mmol/L (136-145)
[2023-01-25 17:06] LABS: International Normalized Ratio 1.3; Prothrombin Time (Protime)PT. 16.5 SECONDS (11.7-14.9)
== END 2023-01-30 18:00 | disposition home or self-care (01) ==
LOC: LAB 15:09
PROVIDERS: Physician Assistant Medical; Family Provider Nurse Practitioner; PCP Nurse Practitioner Adult Health; Referring Provider Internal Medicine Cardiovascular Disease; Visit Provider Internal Medicine Cardiovascular Disease
DX: I48.0 Paroxysmal atrial fibrillation (principal); Z79.01 Long term (current) use of anticoagulants; E78.5 Hyperlipidemia, unspecified; I25.10 Atherosclerotic heart disease of native coronary artery without angina pectoris
CPT/HCPCS: 36415; 80053; 85025; 85610

== ENCOUNTER → 2023-01-31 | Outpatient (CLI) | payer MEDICARE, SELFPAY | END | disposition home or self-care (01) | LOC: PSN 12:08 | PROVIDERS: PCP Nurse Practitioner Adult Health; Referring Provider Physician Assistant Medical; Visit Provider Physician Assistant Medical | DX: I48.19 Other persistent atrial fibrillation (principal); Z79.01 Long term (current) use of anticoagulants | CPT/HCPCS: 93225; 93226 ==

== ENCOUNTER 2023-02-07 11:16 | Outpatient (RCR) | payer MEDICARE, SELFPAY ==
[2023-01-31 09:34] VITALS: BMI 34.6
[2023-02-01 14:31] LABS: International Normalized Ratio 1.4
[2023-02-01 15:49] LABS: ALB/GLOB Ratio 0.7 RATIO (0.9-2.4); AST(SGOT) 19 U/L (15-37); Alanine Aminotransfer ALT/SGPT 24 U/L (13-56); Albumin, Serum 3.1 g/dL (3.2-5.0); Alkaline Phosphatase 90 U/L (45-117); Anion Gap 4 (5-15); BUN 27 mg/dL (7-18); BUN/Creat Ratio 11.9 RATIO (10-20); Calcium,Total 9.5 mg/dL (8.5-10.1); Chloride 100 mmol/L (98-107); Creatinine, Serum 2.27 mg/dL (0.55-1.02); EST Glomerular Filtration Rate 23 mL/min (>60); Est Glom Filt Rate - Afr Amer 27 mL/min (>60); Globulin 4.3 g/dL (2.2-4.2); Glucose 153 mg/dL (74-106); Potassium 4.8 mmol/L (3.5-5.1); Protein, Total 7.4 g/dL (6.4-8.2); Sodium Level 137 mmol/L (136-145)
[2023-02-01 15:51] LABS: Vitamin D,25 Hydroxy 61.9 ng/mL
[2023-02-04 08:22] LABS: PTHIN 89.1 pg/mL (18.4-80.1)
[2023-02-07 11:34] LABS: INR Fingerstick 2.8; Prothrombin Time Fingerstick 29.8 SEC (11.7-14.9)
== END 2023-02-07 18:00 | disposition home or self-care (01) ==
LOC: LAB 11:16
PROVIDERS: Internal Medicine Cardiovascular Disease; Nurse Practitioner Family; Family Provider Nurse Practitioner; PCP Nurse Practitioner Adult Health; Referring Provider Physician Assistant Medical; Visit Provider Physician Assistant Medical
DX: I48.0 Paroxysmal atrial fibrillation (principal); Z79.01 Long term (current) use of anticoagulants; D64.9 Anemia, unspecified; N18.4 Chronic kidney disease, stage 4 (severe); E03.9 Hypothyroidism, unspecified
CPT/HCPCS: 36415; 36416; 80053; 82306; 83970; 85610

== ENCOUNTER 2023-03-08 16:11 | Outpatient (RCR) | payer MEDICARE, SELFPAY ==
[2023-03-01 22:04] VITALS: BMI 34.6
[2023-03-09 06:37] LABS: INR Fingerstick 2.2; Prothrombin Time Fingerstick 24.5 SEC (11.7-14.9)
== END 2023-04-01 18:00 | disposition home or self-care (01) ==
LOC: LAB 16:11
PROVIDERS: Family Provider Nurse Practitioner; PCP Nurse Practitioner Adult Health; Referring Provider Physician Assistant Medical; Visit Provider Physician Assistant Medical
DX: I48.0 Paroxysmal atrial fibrillation (principal); Z79.01 Long term (current) use of anticoagulants
CPT/HCPCS: 36416; 85610

== ENCOUNTER 2023-04-22 14:51 | Outpatient (RCR) | payer MEDICARE, SELFPAY ==
[2023-04-02 00:37] VITALS: BMI 34.6
[2023-04-22 15:28] LABS: INR Fingerstick 2.5; Prothrombin Time Fingerstick 26.7 SEC (11.7-14.9)
== END 2023-04-22 18:00 | disposition home or self-care (01) ==
LOC: LAB 14:51
PROVIDERS: Family Provider Nurse Practitioner; PCP Nurse Practitioner Adult Health; Referring Provider Physician Assistant Medical; Visit Provider Physician Assistant Medical
DX: I48.0 Paroxysmal atrial fibrillation (principal); Z79.01 Long term (current) use of anticoagulants
CPT/HCPCS: 36416; 85610

== ENCOUNTER 2023-05-10 14:06 | Outpatient (RCR) | payer MEDICARE, SELFPAY ==
[2023-05-02 22:43] VITALS: BMI 34.6
[2023-05-10 14:27] LABS: INR Fingerstick 2.2; Prothrombin Time Fingerstick 24.4 SEC (11.7-14.9)
== END 2023-05-10 18:00 | disposition home or self-care (01) ==
LOC: LAB 14:06
PROVIDERS: Family Provider Nurse Practitioner; PCP Nurse Practitioner Adult Health; Referring Provider Physician Assistant Medical; Visit Provider Physician Assistant Medical
DX: I48.0 Paroxysmal atrial fibrillation (principal); Z79.01 Long term (current) use of anticoagulants
CPT/HCPCS: 36416; 85610

== ENCOUNTER 2023-07-02 12:30 | Outpatient (RCR) | payer MEDICARE, SELFPAY ==
[2023-06-02 02:39] VITALS: BMI 34.6
[2023-06-21 10:13] LABS: INR Fingerstick 3.8; Prothrombin Time Fingerstick 39.7 SEC (11.7-14.9)
[2023-06-21 11:25] LABS: International Normalized Ratio 3.5; Prothrombin Time (Protime)PT. 35.6 SECONDS (11.7-14.9)
[2023-06-28 15:19] LABS: INR Fingerstick 4.1; Prothrombin Time Fingerstick 43.4 SEC (11.7-14.9)
[2023-06-28 16:34] LABS: International Normalized Ratio 3.4
[2023-07-02 12:37] LABS: INR Fingerstick 2.2; Prothrombin Time Fingerstick 23.9 SEC (11.7-14.9)
== END 2023-07-02 18:00 | disposition home or self-care (01) ==
LOC: LAB 12:30
PROVIDERS: Family Provider Nurse Practitioner; PCP Nurse Practitioner Adult Health; Referring Provider Physician Assistant Medical; Visit Provider Physician Assistant Medical
DX: I48.0 Paroxysmal atrial fibrillation (principal); Z79.01 Long term (current) use of anticoagulants
CPT/HCPCS: 36415; 36416; 85610

== ENCOUNTER 2023-07-16 14:34 | Outpatient (RCR) | payer MEDICARE, SELFPAY ==
[2023-07-02 23:01] VITALS: BMI 34.6
[2023-07-05 15:51] LABS: Anion Gap 8 (5-15); BUN 39 mg/dL (7-18); BUN/Creat Ratio 9.6 RATIO (10-20); Calcium,Total 10.6 mg/dL (8.5-10.1); Chloride 97 mmol/L (98-107); Creatinine, Serum 4.06 mg/dL (0.55-1.02); EST Glomerular Filtration Rate 12 mL/min (>60); Est Glom Filt Rate - Afr Amer 14 mL/min (>60); Glucose 108 mg/dL (74-106); Potassium 3.7 mmol/L (3.5-5.1); Sodium Level 137 mmol/L (136-145)
[2023-07-08 14:21] LABS: INR Fingerstick 2.4; Prothrombin Time Fingerstick 25.8 SEC (11.7-14.9)
[2023-07-16 14:51] LABS: INR Fingerstick 2.8; Prothrombin Time Fingerstick 30.4 SEC (11.7-14.9)
== END 2023-08-01 18:00 | disposition home or self-care (01) ==
LOC: LAB 14:34
PROVIDERS: Family Provider Nurse Practitioner; PCP Nurse Practitioner Adult Health; Referring Provider Physician Assistant Medical; Visit Provider Physician Assistant Medical
DX: I48.0 Paroxysmal atrial fibrillation (principal); Z79.01 Long term (current) use of anticoagulants
CPT/HCPCS: 36415; 36416; 80048; 85610

== ENCOUNTER → 2023-07-29 | Day surgery (SDC) | payer MEDICARE, SELFPAY ==
--- NOTE | 2023-07-18 16:58 | HP.PCM_ITS ---
History and Physical Date of Admission: 07/29/23 Merle Benson is a 72-year-old white female with a history of CAD-mild, paroxysmal atrial fibrillation, decreased diastolic compliance/diastolic dysfunction, hyperlipidemia, and hypertension. 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 Munguia) that she is now in stage IV kidney failure. She was in the hospital in October of 2022 for CHF. A few weeks ago she had lightheadedness/dizziness, She does have SOB and fatigue. She does have back pain. She is seeing a pain management in [place]. She does have her palpitations. She does feels that her heart is racing at times. She feels shaky with this. This does last 5-10 minutes, it is a few times a week. She does not have any edema. 14 day event monitor demonstrated 100% Afib. She is here today for a DCCV. [facility] Medical History Acute bronchitis Ambulates with cane Anemia Anxiety Arthritis Atherosclerotic heart disease of [place] coronary artery without angina pectoris Back pain Cardiology follow-up encounter Chronic respiratory failure with hypoxia CKD (chronic kidney disease) stage 3, GFR 30-59 ml/min CKD (chronic kidney disease) stage 4, GFR 15-29 ml/min Confusion COPD (chronic obstructive pulmonary disease) CRF (chronic renal failure) Depression Diabetes Diastolic dysfunction Essential hypertension Fatigue Gastric reflux High cholesterol History of atrial fibrillation History of echocardiogram History of myocardial infarction History of renal disease History of stress test Hoarseness Hyperlipidemia Hypertension Hypertension Hypothyroidism Irregular heart beat Kidney disease Long-term use of high-risk medication Migraine headache Narcotic dependency, continuous Non-smoker Obesity (BMI 30.0-34.9) HARI (obstructive sleep apnea) Osteopenia PAF (paroxysmal atrial fibrillation) Persistent atrial fibrillation Pleural effusion Post-menopausal Pulmonary sarcoidosis Sepsis Shortness of breath on exertion Sleep apnea Syncope Thyroid disease TIA (transient ischemic attack) Type 2 diabetes mellitus Wears dentures Wears glasses Surgical History History of back surgery History of cardiac catheterization History of cataract surgery History of cholecystectomy History of hysterectomy History of right knee joint replacement Family History Sister Diabetes Hypertension Sister Diabetes Hypertension Sister Diabetes Hypertension Social History household members: spouse housing: house Smoking Status: Never smoker alcohol intake: never substance use type: does not use caffeine: No ROS Const Const: Positive for fatigue and weakness; Negative for fever(s) or headache(s) Eyes Eyes: Negative for blind spots, loss of peripheral vision or transient loss of vision ENT ENT: Positive for dizziness; Negative for headache(s), tinnitus, Nosebleed/epistaxis or balance problems Cardio Chest Pain: No Palpitations: Yes Edema: None Muscle aches with walking: Bilateral Resp Respiratory: Negative for SOB with activity, SOB at rest, SOB orthopnea\SOB lying down or Cough GI GI: Negative nausea, vomiting, heartburn or vomiting blood/hematemesis : Negative for hematuria Musc Musc: Negative for muscle aches/ myalgia, muscle weakness, joint pain or balance problems Neuro Neuro: Positive for dizziness, lightheadedness and weakness; Negative for near syncope, syncope, orthostatic symptoms or headache(s) Jalen Hematologic/Lymphatic: Negative for easy bleeding Endo Endo: Positive for fatigue Cardiology Exam Const Appearance: cooperative, comfortable, no acute distress, well developed and frail appearing Nutritional Appearance: average body habitus Orientation: alert, awake and oriented x3 Head Head: normal to inspection Ears: hearing grossly normal bilaterally Nose: external nose normal Face and Sinus: face symmetric Mouth: oral mucosae normal, lip normal and moist mucous membranes Eyes General: appearance normal, both eyes and all related structures Eyelids: eyelids normal Conjunctivae: conjunctivae normal Pupils: PERRL EOM: EOM intact bilaterally Neck Neck: normal visual inspection and trachea midline; Negative no JVD Carotids: Negative bruit Chest Chest inspection: normal inspection of the chest Auscultation: Bilateral: Clear to Auscultation Cardio Palpation: normal PMI Rate: regular rate Rhythm: regular rhythm and irregularly irregular Heart sounds: S1 normal and S2 normal; Negative rub, gallop or murmur GI GI: soft, no hepatosplenomegaly and bowel sounds present Neuro General: patient alert, patient awake, patient oriented x3 and CN's II-XI intact bilaterally Extremities Pulses: Normal: Right Posterior Tibial Pulse, Left Posterior Tibial Pulse, Right Radial Pulse and Left Radial Pulse Lower Extremity Edema: None: Bilateral Psych Psychological: normal affect Supplemental Info Supplemental Information Echocardiogram 10/2022: Left ventricular systolic function is normal. The estimated ejection fraction is 60 %. Severe concentric left ventricular hypertrophy. The left atrium is moderately enlarged. Extension of the mitral annular calcification onto the base of the posterior mitral valve leaflet. Mild eccentric tricuspid valve insufficiency. Mild diffuse aortic valve thickening. Mild focal aortic valve calcification. Right ventricular systolic pressure estimated to be 44 mmHg. Diastolic function is indeterminate. Echocardiogram from 12/04/2018: Interpretation Summary The study was technically difficult. Contrast injection was performed. Left ventricular systolic function is normal. The estimated ejection fraction is 65 %. The left atrium is moderately enlarged. There is mild to moderate mitral annular calcification. Extension of the mitral annular calcification onto the posterior mitral valve leaflet. Mild (1+) mitral valve insufficiency. Mild to moderate (1-2+) eccentric tricuspid valve insufficiency. Mild focal aortic valve calcification. Trivial pulmonic valve insufficiency. Right ventricular systolic pressure estimated to be 41 mmHg. Transmitral diastolic flow velocities suggest diastolic dysfunction (pseudonormal pattern). Stress Test Report Date: 12-04-18 Procedure: Pharmacologic stress nuclear imaging study Indications: Paroxysmal atrial fibrillation; shortness of breath/dyspnea Consent: Per the patient Procedure: The patient underwent pharmacologic (Regadenoson) evaluation with a peak heart rate of 77 beats per minute (50 %predicted maximal heart rate) and a peak blood pressure of 150/84 mmHg. The baseline ECG demonstrated sinus bradycardia. The peak pharmacologic ECG demonstrated no obvious ECG changes. There were no cardiac dysrhythmias pretest, during pharmacologic infusion, or recovery. There was no complaint of chest discomfort during pharmacologic infusion or re covery. The examination was discontinued secondary to completion of protocol. Impression: 1. Pharmacologic (Regadenoson) evaluation 2. Peak pharmacologic ECG with no obvious ECG changes. 3. There were no cardiac dysrhythmias pretest, during pharmacologic infusion, or recovery. 4. Nuclear images pending Myocardial perfusion imaging study: Technique: The patient was injected with 11.5 millicuries of technetium 99m Cardiolite and subsequently rest SPECT Cardiolite nuclear imaging was obtained in the horizontal long, vertical long, and short axis views. The patient underwent pharmacologic (Regadenoson) evaluation with a peak heart rate of 77 beats per minute (50 % percent predicted maximal heart rate) and a peak blood pressure of 150/84 mmHg. The patient was injected with 3.8 millicuries of technetium 99m Cardiolite and subsequently stress SPECT Cardiolite nuclear imaging was obtained in the horizontal long, vertical long, and short axis views. A gated Cardiolite study at peak stress was obtained. Interpretation: Rest and stress SPECT Cardiolite nuclear imaging status post realignment, normalization, and attenuation correction demonstrate the appearance of a small area of subtle diminished tracer uptake near the apical segments without significant change between rest and stress. There is end systolic thickening and brightening. The gated Cardiolite study demonstrates myocardial thickening and inward wall motion. The reported LVEF is 71 %. Impression: 1. Rest and stress SPECT Cardiolite nuclear imaging demonstrate a small area of subtle diminished tracer uptake near the apical segments without significant change between rest and stress appearing compatible with physiologic apical thinning with no myocardial perfusion changes considered diagnostic for assoc iated stress-induced myocardial ischemia. 2. The gated Cardiolite study reports an LVEF of 71%. She did have a transthoracic echocardiogram performed on 07/19/2015. At that time her left ventricle was thought to be normal with an LVEF of 65%, normal diastolic for age, moderate left atrial enlargement, mild TR, and an estimated RV systolic pressure of 40 mmHg. She also had a diagnostic cardiac catheterization performed on 06/22/2014. The results are as noted below. Final impression: 1. Relatively normal resting left ventricular end-diastolic pressure 2. Left ventricle: A. Not performed secondary to chronic renal insufficiency 3, Left main coronary artery: A. Angiographically normal 4. Left anterior descending coronary artery: A. Proximal calcification with 10-25% stenosis B. Minimal luminal irregularities 5. Left circumflex coronary artery: A. Minimal luminal irregularities B. First OM with proximal 10 -25% stenosis 6. Right coronary artery: A. Moderate sized dominant vessel B. Minimal luminal irregularities C. Proximal portion prior to and following the takeoff of a small RV marginal branch demonstrates 25% diffuse appearing stenosis Assessment & Plan Assessment/Plan (1) Persistent atrial fibrillation: PLAN: Pt is in 100% Afib. She is mildly symptomatic with fatigue. would like to try a DCCV to see if this improves her fatigue.
[2023-07-24 09:35] VITALS: BMI 34.3
[2023-07-29 10:15] LABS: INR Fingerstick 2.3; Prothrombin Time Fingerstick 24.9 SEC (11.7-14.9)
== END | disposition home or self-care (01) ==
PROVIDERS: PCP Nurse Practitioner Adult Health; Referring Provider Internal Medicine Cardiovascular Disease; Visit Provider Internal Medicine Cardiovascular Disease
DX: I48.19 Other persistent atrial fibrillation (principal); J44.9 Chronic obstructive pulmonary disease, unspecified; E11.22 Type 2 diabetes mellitus with diabetic chronic kidney disease; N18.4 Chronic kidney disease, stage 4 (severe); Z79.4 Long term (current) use of insulin; E78.00 Pure hypercholesterolemia, unspecified; I12.9 Hypertensive chronic kidney disease with stage 1 through stage 4 chronic kidney disease, or unspecified chronic kidney disease; I25.10 Atherosclerotic heart disease of native coronary artery without angina pectoris; I25.2 Old myocardial infarction; G47.33 Obstructive sleep apnea (adult) (pediatric); Z79.899 Other long term (current) drug therapy; Z79.01 Long term (current) use of anticoagulants; Z86.73 Personal history of transient ischemic attack (TIA), and cerebral infarction without residual deficits
CPT/HCPCS: 36416; 85610; 93005

== ENCOUNTER 2023-09-06 13:12 | Outpatient (RCR) | payer MEDICARE, SELFPAY ==
[2023-08-02 03:23] VITALS: BMI 34.6
--- NOTE | 2023-09-06 13:31 | RAD_ITS ---
STUDY: X-RAY CHEST REASON FOR EXAM: Female, 73 years old. Fingerstick. TECHNIQUE: Frontal and lateral views of the chest. COMPARISON: November 03, 2022 FINDINGS: Healed granulomatous calcifications unchanged. There is no demonstrated pleural abnormality. Stable cardiomegaly. Normal mediastinum and marycruz. Normal visualized pulmonary arteries. Normal visualized aortic arch and descending thoracic aorta. Normal visualized thoracic spine. Normal visualized ribs, clavicles, and shoulders. There is no demonstrated abnormality of the visualized soft tissue structures of the upper abdomen. RAD/Chest PA and Lateral IMPRESSION: Stable chest with no acute or active cardiopulmonary disease. Electronically Signed: Cayetano Dove MD at 14:02 EST ,
[2023-09-06 13:34] LABS: Absolute Neutrophil Count 6.5 X10^3/uL (2.0-7.7); Basophil# 0.05 X10^3/uL; Basophil% 0.6 % (0-1); Eosinophil# 0.11 X10^3/uL; Eosinophils% 1.3 % (0-5); Hematocrit 31.7 % (37-47); Hemoglobin 9.4 g/dL (12.0-15.0); Lymphocyte % 15.3 % (19-41); Mean Corp Hgb Conc 29.7 g/dL (32-36); Mean Corpuscular Volume 104.6 fL (81-99); Mean Platelet Vol. 9.2 fl (6.2-12.0); Monocyte# 0.53 X10^3/uL; Monocyte% 6.2 % (0-10); NRBC Flagged by Analyzer 0 % (0-5); Neutrophil # 6.45 X10^3/uL (2.7-7.7); Neutrophil % 75.8 % (47-70); Platelet Count 293 K/mm3 (150-450); RBC Distribution Width CV 17.2 % (11.6-14.6); RBC Distribution Width SD 64.3 fl (35.1-43.9); Red Blood Count 3.03 M/mm3 (4.2-5.4); White Blood Count 8.5 K/mm3 (4.4-11.0)
[2023-09-06 13:51] LABS: International Normalized Ratio 2.1
[2023-09-06 14:05] LABS: BNP,B-Type NATRIURETIC PEPTIDE 402.3 pg/mL (0-100)
[2023-09-06 14:15] LABS: ALB/GLOB Ratio 0.6 RATIO (0.9-2.4); AST(SGOT) 23 U/L (15-37); Alanine Aminotransfer ALT/SGPT 19 U/L (13-56); Albumin, Serum 2.9 g/dL (3.2-5.0); Alkaline Phosphatase 103 U/L (45-117); Anion Gap 6 (5-15); BUN 37 mg/dL (7-18); BUN/Creat Ratio 10.9 RATIO (10-20); Calcium,Total 10.2 mg/dL (8.5-10.1); Chloride 98 mmol/L (98-107); EST Glomerular Filtration Rate 14 mL/min (>60); Est Glom Filt Rate - Afr Amer 17 mL/min (>60); Globulin 4.5 g/dL (2.2-4.2); Glucose 136 mg/dL (74-106); Potassium 4.3 mmol/L (3.5-5.1); Protein, Total 7.4 g/dL (6.4-8.2); Sodium Level 135 mmol/L (136-145); Thyroid Stim Hormone (TSH) 1.64 uIU/mL (0.358-3.74)
== END 2023-09-06 18:00 | disposition home or self-care (01) ==
LOC: LAB 13:12
PROVIDERS: Family Provider Nurse Practitioner; PCP Nurse Practitioner Adult Health; Referring Provider Physician Assistant Medical; Visit Provider Physician Assistant Medical
DX: I48.0 Paroxysmal atrial fibrillation (principal); R06.09 Other forms of dyspnea; I25.10 Atherosclerotic heart disease of native coronary artery without angina pectoris; I51.9 Heart disease, unspecified; Z79.01 Long term (current) use of anticoagulants; E66.9 Obesity, unspecified; I10 Essential (primary) hypertension
CPT/HCPCS: 36415; 71046; 80053; 83880; 84443; 85025; 85610

== ENCOUNTER 2023-09-06 13:57 | Emergency (ER) | payer MEDICARE, SELFPAY ==
[2023-09-06 13:58] VITALS: BP 137/65; PULSE 69; RESP 14; TEMP 36.7; O2SAT 90
--- NOTE | 2023-09-06 14:35 | EDS_ITS ---
HPI History of Present Illness Chief Complaint: Fall Informant: patient and spouse/S.O. Narrative Narrative: Patient presents with 4 areas after a fall on Saturday. Patient was leaving her house Saturday for a scheduled doctor's appointment for preoperative clearance for a fistula for dialysis. Her toes caught on the tile she fell hitting her right cheek on a cabinet in the hallway and then down on her knees. She states she has some pain in her right cheek but mostly in the left knee. She is able to bear weight. Of note she is on Coumadin for A-fib and history of heart disease. Her last dose was Saturday. She did not lose consciousness at any time. The fall was mechanical. She really is not having headache. No nausea vomiting. As part of preoperative clearance she had a lot of blood work done this morning and I have reviewed this outpatient blood work and will reported in the MDM. [facility] Medical History Acute bronchitis Ambulates with cane Anemia Anxiety Arthritis Atherosclerotic heart disease of [place] coronary artery without angina pectoris Back pain Cardiology follow-up encounter Chronic respiratory failure with hypoxia CKD (chronic kidney disease) stage 3, GFR 30-59 ml/min CKD (chronic kidney disease) stage 4, GFR 15-29 ml/min Confusion COPD (chronic obstructive pulmonary disease) CRF (chronic renal failure) Depression Diabetes Diastolic dysfunction Essential hypertension Fatigue Gastric reflux High cholesterol History of atrial fibrillation History of echocardiogram History of myocardial infarction History of renal disease History of stress test Hoarseness Hyperlipidemia Hypertension Hypertension Hypothyroidism Irregular heart beat Kidney disease Long-term use of high-risk medication Migraine headache Narcotic dependency, continuous Non-smoker Obesity (BMI 30.0-34.9) HARI (obstructive sleep apnea) Osteopenia PAF (paroxysmal atrial fibrillation) Persistent atrial fibrillation Pleural effusion Post-menopausal Pulmonary sarcoidosis Sepsis Shortness of breath on exertion Sleep apnea Syncope Thyroid disease TIA (transient ischemic attack) Type 2 diabetes mellitus Wears dentures Wears glasses Home Medications promethazine 25 mg tablet 25 mg PO PRN PRN Nausea 07/18/15 [History Last Taken 07/17/15] ferrous sulfate 325 mg (65 mg iron) tablet (Feosol) 325 mg PO QDAY 02/16/18 [History Last Taken Unknown] levothyroxine 50 mcg tablet 50 mcg PO DAILY 02/16/18 [History Last Taken Unknown] omeprazole 20 mg tablet,delayed release 20 mg PO QDAY GERD 02/16/18 [History Last Taken 08/07/21] calcitriol 0.25 mcg capsule 0.25 mcg PO QDAY 02/17/18 [History Last Taken Unknown] cyclobenzaprine 10 mg tablet 10 mg PO BID PRN MUSCLE SPASMS 02/17/18 [History Last Taken Unknown] oxycodone-acetaminophen 7.5 mg-325 mg tablet 1 tab PO Q4H PRN Pain 02/17/18 [History Last Taken Unknown] cholecalciferol (vitamin D3) 25 mcg (1,000 unit) capsule 1,000 unit PO DAILY 11/17/18 [History Last Taken Unknown] warfarin 2 mg tablet 2 mg PO SUWE blood thinner 08/03/21 [History Last Taken 08/01/21] buspirone 7.5 mg tablet 7.5 mg PO QHS 05/22/22 [History Last Taken Unknown] docusate sodium 100 mg capsule (Dulcolax Stool Softener (docusate)) 100 mg PO BID 11/02/22 [History Last Taken Unknown] metoprolol tartrate 50 mg tablet 50 mg PO BID heart rate 11/02/22 [History Last Taken Unknown] magnesium oxide 400 mg (241.3 mg magnesium) tablet 400 mg PO QHS #90 tabs 11/05/22 [Rx Last Taken Unknown] furosemide 40 mg tablet See Rx Instructions .Route .COMPLEX #75 tabs 01/21/23 [Rx Last Taken Unknown] amlodipine 5 mg tablet 5 mg PO DAILY 01/25/23 [History Last Taken Unknown] citalopram 20 mg tablet 20 mg PO DAILY 01/25/23 [History Last Taken Unknown] hydralazine 25 mg tablet 25 mg PO BID 01/25/23 [History Last Taken Unknown] Farxiga 10 mg tablet (dapagliflozin propanediol) 10 mg PO DAILY #30 tabs 03/13/23 [Rx Last Taken Unknown] pen needle, diabetic 32 gauge x 32 (BD Ultra-Fine Christy Pen Needle) #100 ea 05/03/23 [Rx Last Taken Unknown] warfarin 1 mg tablet 1 mg PO MOTUTHFRSA Take a 2mg tab on Weds and Sat #90 tabs 06/10/23 [Rx Last Taken Unknown] insulin glargine 100 unit/mL (3 mL) subcutaneous pen (Lantus Solostar U-100 Insulin) 50 unit (0.5 mL) subcut QAM #15 mL 06/19/23 [Rx Last Taken Unknown] tirzepatide 2.5 mg/0.5 mL subcutaneous pen injector (Mounjaro) 2.5 mg (0.5 mL) subcut QWEEK 4 weeks #2 mL 06/19/23 [Rx Last Taken Unknown] Allergy/AdvReac Type Severity Reaction Status Date / Time prochlorperazine edisylate Allergy Other Verified 09/06/23 13:58 [From Compazine] Family History Sister Diabetes Hypertension Sister Diabetes Hypertension Sister Diabetes Hypertension Surgical History History of back surgery History of cardiac catheterization History of cataract surgery History of cholecystectomy History of hysterectomy History of right knee joint replacement Social History household members: spouse housing: house Smoking Status: Never smoker alcohol intake: never substance use type: does not use caffeine: No ROS ROS ED Constitutional Constitutional ED: Denies chills or fever(s) Eyes Eyes: Denies change in vision ENT ENT ED: Reports other Details: Contusion to right face Cardiovascular Cardiovascular: Denies chest pain or palpitations Respiratory/Chest Respiratory/Chest: Denies cough or dyspnea Gastrointestinal Gastrointestinal: Denies vomiting Musculoskeletal Musculoskeletal: Reports arthralgias; Denies back pain or neck pain Integumentary Denies rash Neurologic Neurologic: Denies headache(s), paresthesias or weakness Hematologic/Lymphatic Hematologic/Lymphatic: Reports easy bleeding and easy bruising Allergic/Immunologic Allergic/Immunologic ED: Denies urticaria EXAM Physical Exam Narrative Exam Narrative: General: Patient awake alert no acute distress she is consistent informant. HEENT: She has fair amount of hematoma to the right side of the face overlying the zygoma. No jaw tenderness. Range of motion of the eyes are normal. Eye range of motion is normal. Neck is supple there is no tenderness or pain with motion. Chest is actually clear bilaterally. Saturations are about 90% on room air but patient's not dyspneic. Her heart sounds regular at this time. She does have a history of intermittent A-fib. 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 Abdomen is nontender. Extremities there is some contusion diffusely around the anterior surface of the left knee. But the extensor mechanism is intact. There is some swelling that is likely both external but likely there is some effusion which is most likely b lood considering she is on Coumadin. Neurologically she is awake alert appropriate and acting normally also per her . Const Vital Signs: 09/06/23 13:58 09/06/23 14:29 Temperature 98.1 F Temperature Source Temporal Pulse Rate 69 Respiratory Rate 14 Respiratory Effort Normal Non-Labored Respiratory Depth Normal Respiratory Pattern Normal Blood Pressure 137/65 H Blood Pressure Mean 89 Pulse Ox 90 Oxygen Delivery Method Room Air Room Air MDM MDM MDM Narrative Medical decision making narrative: I reviewed outpatient labs that were done this morning. Patient's CBC shows normal white count. She is mildly anemic at 9.4. But her indices and disease points that this is likely chronic. There is no external bleeding. There may have been some bleeding into the cheek and the knee causing some drop but this does not need transfusion. Platelets are normal. Patient's electrolytes show chronic kidney disease with a creatinine at 3.4. This is actually better than her recent level. Glucose was mildly up at 136. Sodium was minimally low at 135. Patient's BNP was elevated at 402 but this is again at her baseline. Patient's TSH was normal at 1.64. On today's visit: My independent interpretation of the patient's CT of the head shows no sign of acute intracranial bleeding. My independent interpretation of the patient's CT of the face shows soft tissue swelling. But I do not see any bony fracture. I do not see fluid in the sinus. Overall normal. My independent interpretation the patient's 4 view x-ray of the left knee shows significant arthritic changes. Markedly arthritic patella. No acute fracture noted. Final reading of all the films are essentially the same and negative for any acute process. Patient and her are comfortable going home and managing this. Radiography Diagnostic Testing: Clinical Impression(s) from Imaging Studies Brain CT 09/06/23 14:42 IMPRESSION: Atrophic changes. No visualized acute hemorrhage infarct or edema. Right-sided facial soft tissues edema no visualized fracture or acute hemorrhage. Electronically Signed: Judie Smith MD at 15:33 EST , Facial/Sinus 09/06/23 14:42 IMPRESSION: Soft tissue edema no fracture. No visualized intraocular hemorrhage. Electronically Signed: Judie Smith MD at 15:36 EST , Knee X-Ray 09/06/23 14:52 IMPRESSION: Persistent tricompartment degenerative arthrosis, most severe in the patellofemoral compartment. Prepatellar soft tissue swelling. No demonstrated fracture. Electronically Signed: William Galvin MD at 15:10 EST , Discharge Plan Triage Chief Complaint: Fall ED Provider: Keyon Denney Dx/Rx/DC Orders Clinical Impression: Fall at home, Closed head injury, Contusion of face, Hemarthrosis of knee, left, Warfarin-induced coagulopathy, Contusion of left knee Instructions: ED Facial Contusion Prescriptions: No Action calcitriol 0.25 mcg capsule 0.25 mcg PO QDAY oxycodone-acetaminophen 7.5-325 mg tablet 1 tab PO Q4H PRN (Reason: Pain) cyclobenzaprine 10 mg tablet 10 mg PO BID PRN (Reason: MUSCLE SPASMS) levothyroxine 50 mcg tablet 50 mcg PO DAILY omeprazole 20 mg tablet,delayed release (DR/EC) 20 mg PO QDAY ferrous sulfate [Feosol] 325 mg (65 mg iron) tablet 325 mg PO QDAY cholecalciferol (vitamin D3) 1,000 unit capsule 1,000 unit capsule 1,000 unit PO DAILY citalopram 20 mg tablet 20 mg PO DAILY amlodipine 5 mg tablet 5 mg PO DAILY hydralazine 25 mg tablet 25 mg PO BID promethazine 25 MG tablet 25 mg PO PRN PRN (Reason: Nausea) Patient Comments: NAUSEA warfarin 2 mg Tablet 2 mg PO Protocol: Dose Management Condition: Saturday Dose/Route: 2 mg Instruction: 1 x 2 mg tablet Condition: Saturday Dose/Route: 1 mg Instruction: 1 x 1 mg tablet Condition: Saturday Dose/Route: 1 mg Instruction: 1 x 1 mg tablet Condition: Saturday Dose/Route: 1 mg Instruction: 1 x 1 mg tablet Condition: Dose/Route: 1 mg Instruction: 1 x 1 mg tablet Condition: Saturday Dose/Route: 1 mg Instruction: 1 x 1 mg tablet Condition: Saturday Dose/Route: 1 mg Instruction: 1 x 1 mg tablet Protocol Text: Adjustment Start Date: Saturday07/29/23 INR Value: 2.3 INR Date: 07/29/23 Recheck Date: 08/19/23 buspirone 7.5 mg Tablet 7.5 mg PO QHS docusate sodium [Dulcolax Stool Softener (dss)] 100 mg Capsule 100 mg PO BID metoprolol tartrate 50 mg tablet 50 mg PO BID MDD heart rate magnesium oxide 400 mg (241.3 mg magnesium) tablet 400 mg PO QHS Qty: 90 3RF furosemide 40 mg tablet See Rx Instructions .ROUTE .COMPLEX Qty: 75 12RF Dose Instruction: 40 MG ORALLY DIRECTED 1 AND 1/2 TABS IN THE AM, ONE TAB IN PM Rx Instructions: 40 MG ORALLY DIRECTED 1 AND 1/2 TABS IN THE AM, ONE TAB IN PM Farxiga 10 mg tablet 10 mg PO DAILY Qty: 30 5RF (DME) pen needle, diabetic [BD Ultra-Fine Christy Pen Needle] 32 gauge x 5/32 needle See Rx Instructions .Route Qty: 100 5RF Rx Instructions: daily warfarin 1 mg tablet 1 mg PO MOTUTHFRSA Qty: 90 3RF Protocol: Dose Management Condition: Saturday Dose/Route: 2 mg Instruction: 1 x 2 mg tablet Condition: Saturday Dose/Route: 1 mg Instruction: 1 x 1 mg tablet Condition: Saturday Dose/Route: 1 mg Instruction: 1 x 1 mg tablet Condition: Saturday Dose/Route: 1 mg Instruction: 1 x 1 mg tablet Condition: Dose/Route: 1 mg Instruction: 1 x 1 mg tablet Condition: Saturday Dose/Route: 1 mg Instruction: 1 x 1 mg tablet Condition: Saturday Dose/Route: 1 mg Instruction: 1 x 1 mg tablet Protocol Text: Adjustment Start Date: Saturday07/29/23 INR Value: 2.3 INR Date: 07/29/23 Recheck Date: 08/19/23 Mounjaro 2.5 mg/0.5 mL pen injector 2.5 mg subcut QWEEK 28 Days Qty: 2 3RF insulin glargine [Lantus Solostar U-100 Insulin] 100 unit/mL (3 mL) insulin pen 50 unit subcut QAM Qty: 15 5RF Primary Care Provider: Erlinda Mcneil NP Referrals: Erlinda Mcneil NP, [employer] [Primary Care Provider] - As Needed Disposition Disposition: Home, Self Care
--- NOTE | 2023-09-06 14:42 | CT_ITS ---
STUDY: CT BRAIN WITHOUT CONTRAST REASON FOR EXAM: Female, 73 years old. Trauma RADIATION DOSAGE (If Supplied By Facility): CTDIvol = ( 44.99 ) mGy, DLP = ( 745.49 ) mGycm TECHNIQUE: Transaxial CT imaging of the brain was performed without administration of intravenous contrast material. Individualized dose optimization techniques were used for this CT. COMPARISON: July 11, 2019 CT head FINDINGS: There is right sided facial soft tissue edema adjacent to the zygoma. There is no visualized intraocular hemorrhage. The zygoma appears to be intact. Normal calvarium. There is calcification of the left-sided vertebral artery. There is calcification of the bilateral cavernous carotid arteries. There is mild cerebral atrophy with widening of the extra-axial spaces and ventricular dilatation. There are areas of decreased attenuation within the white matter tracts of the supratentorial brain, consistent with microvascular disease changes. There is stable low attenuation within the left external capsule compatible with prior small vessel ischemic change. Normal brainstem. There is stable left greater than right cerebellar atrophy. There is no intracranial hemorrhage. There are no findings of an acute ischemic infarction. Visualized leftward nasal spur. The maxillary sinuses sphenoid sinuses frontal sinuses and diminutive mastoid air cells are clear. CT/Brain/Head without Contrast IMPRESSION: Atrophic changes. No visualized acute hemorrhage infarct or edema. Right-sided facial soft tissues edema no visualized fracture or acute hemorrhage. Electronically Signed: Judie Smith MD at 15:33 EST ,
--- NOTE | 2023-09-06 14:42 | CT_ITS ---
STUDY: CT FACIAL BONES WITHOUT CONTRAST REASON FOR EXAM: Female, 73 years old. Trauma RADIATION DOSAGE (If Supplied By Facility): CTDIvol = ( 29.38 ) mGy, DLP = ( 518.07 ) mGycm TECHNIQUE: The patient was scanned in a multi detector CT scanner. Sagittal and coronal images were reconstructed. Individualized dose optimization techniques were used for this CT. COMPARISON: CT head September 06, 2023, July 11, 2019 CT head FINDINGS: There is calcification of the bilateral carotid bulbs. There is tortuosity. There is visualized mild asymmetric enlargement of the right greater than left submandibular gland. They''re fairly symmetric-appearing Neck Soft Tissue reactive lymph nodes. There is a focus of soft tissue edema within the right-sided facial soft tissues adjacent to the right-sided zygoma and zygomatic arch without visualized fracture. The temporomandibular joint appears to be intact bilaterally. There is degenerative change. There is degenerative change of the cervical spine as visualized without visualized fracture. There is no visualized intraocular hemorrhage. There is no fracture of the right or left orbit. Normal orbital cunningham and orbital contents. Normal nasal bones and anterior nasal spine. Normal facial bones. There is no demonstrated fracture. There is a leftward nasal spur. There is a diminutive but clear appearance of the bilateral mastoid air cells. CT/Sinus/Facial Bone IMPRESSION: Soft tissue edema no fracture. No visualized intraocular hemorrhage. Electronically Signed: Judie Smith MD at 15:36 EST Reading Location ID and State: [facility] / [place] Tel , Service support ,
--- NOTE | 2023-09-06 14:52 | RAD_ITS ---
STUDY: X-RAY - LEFT KNEE REASON FOR EXAM: Female, 73 years old. Trauma. TECHNIQUE: 4 views of the left knee. COMPARISON: Left knee radiographs dated 11/23/2020. FINDINGS: Normal visualized distal femur. Normal visualized proximal tibia and fibula. Normal proximal tibiofibular articulation. There is no demonstrated fracture. There is moderate degenerative arthrosis of the medial femorotibial compartment with moderate joint space narrowing. There is mild degenerative arthrosis of the lateral femorotibial compartment. There is severe degenerative arthrosis of the patellofemoral articulation. There are atherosclerotic calcifications. There is prepatellar soft tissue swelling. RAD/Knee 4 or More Views IMPRESSION: Persistent tricompartment degenerative arthrosis, most severe in the patellofemoral compartment. Prepatellar soft tissue swelling. No demonstrated fracture. Electronically Signed: William Galvin MD at 15:10 EST ,
== END 2023-09-06 16:07 | disposition home or self-care (01) ==
PROVIDERS: Emergency Provider Emergency Medicine; PCP Nurse Practitioner Adult Health; Visit Provider Emergency Medicine
DX: S09.90XA Unspecified injury of head, initial encounter (principal); N18.4 Chronic kidney disease, stage 4 (severe); I48.0 Paroxysmal atrial fibrillation; S00.83XA Contusion of other part of head, initial encounter; M17.12 Unilateral primary osteoarthritis, left knee; S80.02XA Contusion of left knee, initial encounter; I25.10 Atherosclerotic heart disease of native coronary artery without angina pectoris; G47.33 Obstructive sleep apnea (adult) (pediatric); I25.2 Old myocardial infarction; W19.XXXA Unspecified fall, initial encounter; R06.09 Other forms of dyspnea; E66.9 Obesity, unspecified; Z79.01 Long term (current) use of anticoagulants; Z86.73 Personal history of transient ischemic attack (TIA), and cerebral infarction without residual deficits
CPT/HCPCS: 36415; 70450; 70486; 71046; 73564; 80053; 83880; 84443; 85025; 85610; 99282

== ENCOUNTER 2023-11-21 14:48 | Outpatient (RCR) | payer MEDICARE, SELFPAY ==
[2023-10-02 22:06] VITALS: BMI 34.6
[2023-11-22 13:23] LABS: INR Fingerstick 1.1; Prothrombin Time Fingerstick 12.5 SEC (11.7-14.9)
== END 2023-11-30 18:00 | disposition home or self-care (01) ==
LOC: LAB 14:48
PROVIDERS: Family Provider Nurse Practitioner; PCP Nurse Practitioner Adult Health; Referring Provider Physician Assistant Medical; Visit Provider Physician Assistant Medical
DX: I48.0 Paroxysmal atrial fibrillation (principal); Z79.01 Long term (current) use of anticoagulants
CPT/HCPCS: 36416; 85610

== ENCOUNTER 2023-12-31 10:17 | Outpatient (RCR) | payer MEDICARE, SELFPAY ==
[2023-11-30 22:29] VITALS: BMI 34.6
[2023-12-10 14:36] LABS: INR Fingerstick 1.7; Prothrombin Time Fingerstick 18.3 SEC (11.7-14.9)
[2023-12-31 10:30] LABS: INR Fingerstick 2.6; Prothrombin Time Fingerstick 26.8 SEC (11.7-14.9)
== END 2023-12-31 23:05 | disposition home or self-care (01) ==
LOC: LAB 10:17
PROVIDERS: Family Provider Nurse Practitioner; PCP Nurse Practitioner Adult Health; Referring Provider Physician Assistant Medical; Visit Provider Physician Assistant Medical
DX: Z79.01 Long term (current) use of anticoagulants; I48.19 Other persistent atrial fibrillation
CPT/HCPCS: 36416; 85610

== ENCOUNTER → 2024-01-02 | Outpatient (CLI) | payer MEDICARE, SELFPAY | END | disposition home or self-care (01) | LOC: PSN 13:08 | PROVIDERS: PCP Nurse Practitioner Adult Health; Referring Provider Nurse Practitioner Family; Visit Provider Nurse Practitioner Family | DX: R06.09 Other forms of dyspnea (principal); I48.19 Other persistent atrial fibrillation; I25.10 Atherosclerotic heart disease of native coronary artery without angina pectoris; I10 Essential (primary) hypertension | CPT/HCPCS: 93225; 93226 ==

== ENCOUNTER 2024-01-23 11:58 | Outpatient (RCR) | payer MEDICARE, SELFPAY ==
[2023-12-31 23:05] VITALS: BMI 34.6
[2024-01-23 12:12] LABS: INR Fingerstick 2.4; Prothrombin Time Fingerstick 24.8 SEC (11.7-14.9)
== END 2024-01-23 18:00 | disposition home or self-care (01) ==
LOC: LAB 11:58
PROVIDERS: Family Provider Nurse Practitioner; PCP Nurse Practitioner Adult Health; Referring Provider Physician Assistant Medical; Visit Provider Physician Assistant Medical
DX: Z79.01 Long term (current) use of anticoagulants; I48.19 Other persistent atrial fibrillation
CPT/HCPCS: 36416; 85610

== ENCOUNTER 2024-02-11 14:03 | Outpatient (RCR) | payer MEDICARE, SELFPAY ==
[2024-02-03 09:34] VITALS: BMI 34.6
[2024-02-11 14:26] LABS: Prothrombin Time Fingerstick 30.2 SEC (11.7-14.9)
== END 2024-02-11 18:00 | disposition home or self-care (01) ==
LOC: LAB 14:03
PROVIDERS: Family Provider Nurse Practitioner; PCP Nurse Practitioner Adult Health; Referring Provider Physician Assistant Medical; Visit Provider Physician Assistant Medical
DX: Z79.01 Long term (current) use of anticoagulants; I48.19 Other persistent atrial fibrillation
CPT/HCPCS: 36416; 85610